=== PATIENT | male | born 1955 | race African-American/Black ===

== ENCOUNTER 2017-10-26 13:52 | Inpatient (IN) | payer OTHER ==
--- NOTE | 2017-10-26 15:22 | EDM.PDOC ---
ED HPI GENERAL MEDICAL PROBLEM - General Chief Complaint: Gastrointestinal Problem Stated Complaint: VOMITING, BLOOD IN STOOL Time Seen by Provider: 10/26/17 14:36 Source of Information: Reports: Patient History Limitations: Reports: No Limitations - History of Present Illness INITIAL COMMENTS - FREE TEXT/NARRATIVE: HISTORY AND PHYSICAL: History of present illness: 62-year-old male male presenting to emergency department with chief complaint of bright red per rectum after bowel movement this morning. Patient states that when he had a bowel movement this morning he noticed bright red blood. Does mention that he feels like he did "pass out" during this bowel movement, denies any trauma after reported lack of consciousness. He has also had subsequent diarrhea associated with this bleeding. He reports some left lower quadrant pain that also started today. He did have a similar episode in [place] approximately 4 years ago where he states that they did do some kind of procedure which seems to be a colonoscopy. States he was in the hospital for 5 days and received medications after this. He is not sure what his actual diagnosis was and does not recognize the term diverticulitis. Patient has had no significant abdominal surgery in the past. He does have some heartburn chronically takes no medications for this. Reports to drinking quite often. Reports last drink was Friday where he drank a pint of [place] whiskey. States that he does not take any blood thinners and has no other significant medical issues for which he takes medication for. Does report taking ibuprofen last few days secondary to pain from work. CBC was unremarkable, CMP did show elevated AST as well as lipase but CT did not reveal any signs of pancreatitis. CT did reveal thickening of the wall of the entire descending colon with minimal pericolonic inflammatory changes just of an anti-inflammatory process occurring or possible ischemia from the inferior mesenteric artery. I did call Dr. Caballero, surgery, and advised her of this patient. She is well aware and I will have medicine admit patient for IV antibiotics as well as IV fluid hydration. Called and talked to Dr. Carmona, hospitalist, who is accepting patient for inpatient admission. Patient was started on IV Cipro as well as Flagyl and placed nothing by mouth. I did also tell Dr. Carmona at that patient does have a history of drinking however no history of delirium tremens. He was given 2 Ativan while here in the emergency department. His last drink was stated as Friday. Review of systems: As per history of present illness and below otherwise all systems reviewed and negative. Past medical history: As per history of present illness and as reviewed below otherwise noncontributory. Surgical history: As per history of present illness and as reviewed below otherwise noncontributory. Social history: No reported history of drug or alcohol abuse. Family history: As per history of present illness and as reviewed below otherwise noncontributory. Physical exam: HEENT: Atraumatic, normocephalic, pupils reactive, negative for conjunctival pallor or scleral icterus, mucous membranes moist, throat clear, neck supple, nontender, trachea midline. Lungs: Clear to auscultation, breath sounds equal bilaterally, chest nontender. Heart: S1S2, regular, negative for clicks, rubs, or JVD. Abdomen: Soft, nondistended, mild tenderness and left lower quadrant as well as epigastric area.. Negative for masses or hepatosplenomegaly. Negative for costovertebral tenderness. Pelvis: Stable nontender. Genitourinary: Deferred. Rectal: Normal tone, positive for blood Extremities: Atraumatic, negative for cords or calf pain. Neurovascular unremarkable. Neuro: Awake, alert, oriented. Cranial nerves II through XII unremarkable. Cerebellum unremarkable. Motor and sensory unremarkable throughout. Exam nonfocal. Diagnostics: CBC, CMP, UA/UC, CT abdomen and pelvis, Hemoccult Therapeutics: 1 L LR 1, 80 mg Protonix 1, 2 mg Ativan IM 1, 1 [place] Bag IV, NPO, Cipro, Flagyl Impression: Colitis bright red blood per rectum Plan: Please see H&P patient admitted to hospital service Dr. Carmona attending for colitis.. Definitive disposition and diagnosis as appropriate pending reevaluation and review of above. Abdomen Pain Score (Numeric/FACES): 8 - Related Data Allergies Allergy/AdvReac Type Severity Reaction Status Date / Time No Known Allergies Allergy Verified 10/26/17 15:11 Home Meds: Home Meds . [No Known Home Meds] 10/26/17 [History] Past Medical History - Past Surgical History GI Surgical History: Reports: EGD Social & Family History - Family History Family Medical History: Noncontributory - Tobacco Use Smoking Status *Q: Current Every Day Smoker Years of Tobacco use: 48 Packs/Tins Daily: 0.2 - Caffeine Use Caffeine Use: Reports: Soda - Recreational Drug Use Recreational Drug Use: No ED ROS GENERAL - Review of Systems Review Of Systems: ROS reveals no pertinent complaints other than HPI. ED EXAM, GENERAL - Physical Exam Exam: See Below Course - Vital Signs Last Recorded V/S: Last Vital Signs Temp 98.4 F 10/26/17 15:07 Pulse 79 10/26/17 15:07 Resp 18 10/26/17 15:07 BP 171/104 H 10/26/17 15:07 Pulse Ox 98 10/26/17 15:07 - Orders/Labs/Meds Orders: Active Orders 24 hr Category Date Time Status NPO Now [Nothing per Oral Now Diet] [DIET] Diet 10/26/17 Dinner Active Abdomen Pelvis w Cont [CT] Stat Exams 10/26/17 15:35 Taken Ciprofloxacin in D5W [Cipro in D5W 400 MG/200 ML] 400 Med 10/26/17 19:00 Ordered mg Premix Bag 1 bag IV Q12H MVI, Adult with Vitamin K [Infuvite Adult] 10 ml Med 10/26/17 18:28 Active Thiamine [Vitamin B-1] 100 mg Folic Acid 1 mg Sodium Chloride 0.9% [Normal Saline] 1,000 ml IV ONETIME metroNIDAZOLE/Normal Saline [Flagyl 500 MG in NS 100 ML Med 10/26/17 18:55 Ordered ] 500 mg Premix Bag 1 bag IV ONETIME Medication Orders Multivitamins/Minerals 10 ml/Thiamine HCl 100 mg/ Folic Acid 1 mg/ Sodium Chloride 1,011.2 mls @ 250 mls/hr IV ONETIME ONE Stop: 10/26/17 22:30 Ciprofloxacin/Dextrose 400 mg/ (Premix) 200 mls @ 200 mls/hr IV Q12H MARCEL Metronidazole 500 mg/ Premix 100 mls @ 100 mls/hr IV ONETIME ONE Stop: 10/26/17 19:54 Labs: Laboratory Tests 10/26/17 10/26/17 10/26/17 Range/Units 16:26 16:26 16:26 WBC 10.81 (4.0-11.0) K/uL RBC 4.14 L (4.50-5.90) M/uL Hgb 13.9 (13.0-17.0) g/dL Hct 38.1 (38.0-50.0) % MCV 92.0 (80.0-98.0) fL MCH 33.6 H (27.0-32.0) pg MCHC 36.5 (31.0-37.0) g/dL RDW Std Deviation 50.2 (28.0-62.0) fl RDW Coeff of Stephane 15 (11.0-15.0) % Plt Count 75 L (150-400) K/uL MPV 10.90 (7.40-12.00) fL Neut % (Auto) 81.8 H (48.0-80.0) % Lymph % (Auto) 10.4 L (16.0-40.0) % [place] % (Auto) 7.6 (0.0-15.0) % Eos % (Auto) 0.0 (0.0-7.0) % Baso % (Auto) 0.2 (0.0-1.5) % Neut # (Auto) 8.9 H (1.4-5.7) K/uL Lymph # (Auto) 1.1 (0.6-2.4) K/uL [place] # (Auto) 0.8 (0.0-0.8) K/uL Eos # (Auto) 0.0 (0.0-0.7) K/uL Baso # (Auto) 0.0 (0.0-0.1) K/uL Nucleated RBC % 0.0 /100WBC Nucleated RBCs # 0 K/uL INR 1.02 Sodium 143 (136-148) mmol/L Potassium 3.6 (3.5-5.1) mmol/L Chloride 100 (98-107) mmol/L Carbon Dioxide 28.1 (21.0-32.0) mmol/L BUN 10 (7.0-18.0) mg/dL Creatinine 0.7 L (0.8-1.3) mg/dL Est Cr Clr Drug Dosing 99.92 mL/min Estimated GFR (MDRD) > 60.0 ml/min Glucose 99 (74-106) mg/dL Calcium 9.3 (8.5-10.1) mg/dL Total Bilirubin 1.2 H (0.2-1.0) mg/dL AST 218 H (15-37) IU/L ALT 59 (14-63) IU/L Alkaline Phosphatase 111 (46-116) U/L Total Protein 8.4 H (6.4-8.2) g/dL Albumin 4.3 (3.4-5.0) g/dL Globulin 4.1 H (2.0-3.5) g/dL Albumin/Globulin Ratio 1.1 L (1.3-2.8) Lipase (73-393) U/L 10/26/17 Range/Units 16:26 WBC (4.0-11.0) K/uL RBC (4.50-5.90) M/uL Hgb (13.0-17.0) g/dL Hct (38.0-50.0) % MCV (80.0-98.0) fL MCH (27.0-32.0) pg MCHC (31.0-37.0) g/dL RDW Std Deviation (28.0-62.0) fl RDW Coeff of Stephane (11.0-15.0) % Plt Count (150-400) K/uL MPV (7.40-12.00) fL Neut % (Auto) (48.0-80.0) % Lymph % (Auto) (16.0-40.0) % [place] % (Auto) (0.0-15.0) % Eos % (Auto) (0.0-7.0) % Baso % (Auto) (0.0-1.5) % Neut # (Auto) (1.4-5.7) K/uL Lymph # (Auto) (0.6-2.4) K/uL [place] # (Auto) (0.0-0.8) K/uL Eos # (Auto) (0.0-0.7) K/uL Baso # (Auto) (0.0-0.1) K/uL Nucleated RBC % /100WBC Nucleated RBCs # K/uL INR Sodium (136-148) mmol/L Potassium (3.5-5.1) mmol/L Chloride (98-107) mmol/L Carbon Dioxide (21.0-32.0) mmol/L BUN (7.0-18.0) mg/dL Creatinine (0.8-1.3) mg/dL Est Cr Clr Drug Dosing mL/min Estimated GFR (MDRD) ml/min Glucose (74-106) mg/dL Calcium (8.5-10.1) mg/dL Total Bilirubin (0.2-1.0) mg/dL AST (15-37) IU/L ALT (14-63) IU/L Alkaline Phosphatase (46-116) U/L Total Protein (6.4-8.2) g/dL Albumin (3.4-5.0) g/dL Globulin (2.0-3.5) g/dL Albumin/Globulin Ratio (1.3-2.8) Lipase 409 H (73-393) U/L Meds: Medications Generic Name Dose Route Start Last Admin Trade Name Freq PRN Reason Stop Dose Admin Multivitamins/Minerals 10 ml/ 1,011.2 mls @ 250 mls/hr 10/26/17 18:28 Thiamine HCl 100 mg/ Folic IV 10/26/17 22:30 Acid 1 mg/ Sodium Chloride ONETIME ONE Ciprofloxacin/Dextrose 400 mg/ 200 mls @ 200 mls/hr 10/26/17 19:00 Premix IV Q12H MARCEL Metronidazole 500 mg/ Premix 100 mls @ 100 mls/hr 10/26/17 18:55 IV 10/26/17 19:54 ONETIME ONE Discontinued Medications Generic Name Dose Route Start Last Admin Trade Name Freq PRN Reason Stop Dose Admin Lactated Ringer's 1,000 mls @ 999 mls/hr 10/26/17 15:36 10/26/17 16:30 Ringers, Lactated IV 10/26/17 16:36 999 mls/hr .BOLUS ONE Administration Multivitamins/Minerals 10 ml/ 1,011.2 mls @ 250 mls/hr 10/26/17 18:28 Thiamine HCl 100 mg/ Folic IV 10/26/17 22:30 Acid 1 mg/ Sodium Chloride ONETIME ONE Lorazepam 2 mg 10/26/17 16:00 10/26/17 16:07 Ativan IM 10/26/17 16:01 2 mg ONETIME ONE Administration Lorazepam Confirm 10/26/17 16:03 Ativan Administered 10/26/17 16:04 Dose 2 mg .ROUTE .STK-MED ONE Pantoprazole Sodium 80 mg 10/26/17 15:37 10/26/17 17:17 Protonix Iv IVPUSH 10/26/17 15:38 80 mg .BOLUS ONE Administration Departure - Departure Time of Disposition: 19:02 Disposition: Admitted As Inpatient 65 Condition: Good Clinical Impression: Colitis - Discharge Information Referrals: PCP,None [Primary Care Provider] - Forms: ED Department Discharge - My Orders Last 24 Hours: My Active Orders 10/26/17 15:35 Abdomen Pelvis w Cont [CT] Stat 10/26/17 18:28 MVI, Adult with Vitamin K [Infuvite Adult] 10 ml Thiamine [Vitamin B-1] 100 mg Folic Acid 1 mg Sodium Chloride 0.9% [Normal Saline] 1,000 ml IV ONETIME 10/26/17 18:55 metroNIDAZOLE/Normal Saline [Flagyl 500 MG in NS 100 ML] 500 mg Premix Bag 1 bag IV ONETIME 10/26/17 19:00 Ciprofloxacin in D5W [Cipro in D5W 400 MG/200 ML] 400 mg Premix Bag 1 bag IV Q12H 10/26/17 Dinner NPO Now [Nothing per Oral Now Diet] [DIET] - Assessment/Plan Last 24 Hours: My Active Orders 10/26/17 15:35 Abdomen Pelvis w Cont [CT] Stat 10/26/17 18:28 MVI, Adult with Vitamin K [Infuvite Adult] 10 ml Thiamine [Vitamin B-1] 100 mg Folic Acid 1 mg Sodium Chloride 0.9% [Normal Saline] 1,000 ml IV ONETIME 10/26/17 18:55 metroNIDAZOLE/Normal Saline [Flagyl 500 MG in NS 100 ML] 500 mg Premix Bag 1 bag IV ONETIME 10/26/17 19:00 Ciprofloxacin in D5W [Cipro in D5W 400 MG/200 ML] 400 mg Premix Bag 1 bag IV Q12H 10/26/17 Dinner NPO Now [Nothing per Oral Now Diet] [DIET]
[2017-10-26] MEDS ORDERED: Lactated Ringers 1,000 ML IV ONE (15:36)
[2017-10-26] MEDS ORDERED: Pantoprazole 40 MG Vial IVPUSH ONE (15:37)
[2017-10-26] MEDS ORDERED: LORazepam 2 MG/ML SDV IM ONE (16:00)
[2017-10-26] MEDS ORDERED: LORazepam 2 MG/ML SDV ONE (16:03)
[2017-10-26 16:51] LABS: CHLORIDE,CL 100 mmol/L (98-107); SODIUM,NA 143 mmol/L (136-148)
[2017-10-26] MEDS ORDERED: MVI, Adult with Vitamin K 10 ML, Thiamine 100 MG, Folic Acid 1 MG in Sodium Chloride 0.... IV ONE ×8 (18:28)
[2017-10-26] MEDS ORDERED: metroNIDAZOLE/Normal Saline 500 MG in Premix Bag 1 BAG IV ONE (18:55)
[2017-10-26] MEDS ORDERED: Iopamidol 755 MG/ML 500 ML Multipack Bottle IVPUSH STA (19:07)
[2017-10-26] MEDS: Ciprofloxacin in D5W 400 MG in Premix Bag 1 BAG IV SCH ×2 (20:02)
[2017-10-26] MEDS ORDERED: Ondansetron 4 MG/2 ML SDV IVPUSH PRN (22:39)
--- NOTE | 2017-10-26 22:47 | PCM.HP ---
H&P History of Present Illness - General Date of Service: 10/26/17 Admit Problem/Dx: Admission Diagnosis/Problem Admission Diagnosis/Problem Colitis - History of Present Illness Initial Comments - Free Text/Narative: 62 yo male who presents with one day history of bloody stools. He did have some abdominal pain in the ED but he denies abdominal pain now. He reports having bloody stools four years ago but did not have endoscopy. He denies any fevers. CT scan of abdomen reports thickening of the wall of the entire descending colon with minimal pericolonic inflammatory changes. Abdomen Pain Score (Numeric/FACES): 8 - Related Data Allergies/Adverse Reactions: Allergies Allergy/AdvReac Type Severity Reaction Status Date / Time No Known Allergies Allergy Verified 10/26/17 15:11 Home Medications: Home Meds . [No Known Home Meds] 10/26/17 [History] Past Medical History - Past Surgical History GI Surgical History: Reports: EGD Social & Family History - Family History Family Medical History: Noncontributory - Tobacco Use Smoking Status *Q: Current Every Day Smoker Years of Tobacco use: 48 Packs/Tins Daily: 0.2 - Caffeine Use Caffeine Use: Reports: Soda - Recreational Drug Use Recreational Drug Use: No H&P Review of Systems - Review of Systems: Review Of Systems: ROS reveals no pertinent complaints other than HPI. Exam - Exam Exam: See Below - Vital Signs Vital Signs: Last Vital Signs Temp 36.9 C 10/26/17 15:07 Pulse 78 10/26/17 20:28 Resp 16 10/26/17 20:28 BP 151/83 H 10/26/17 20:28 Pulse Ox 97 10/26/17 20:28 Weight: 65.4 kg - Exam General: Alert, Oriented HEENT: Mucosa Moist & [place] Lungs: Clear to Auscultation, Normal Respiratory Effort Cardiovascular: Regular Rate, Regular Rhythm GI/Abdominal Exam: Normal Bowel Sounds, Soft, Non-Tender, No Distention. No: Guarding, Rigid, Rebound Extremities: Normal Inspection, Non-Tender, No Pedal Edema Skin: Warm, Dry, Intact - Patient Data Lab Results Last 24 hrs: Laboratory Results - last 24 hr 10/26/17 10/26/17 10/26/17 Range/Units 16:26 16:26 16:26 WBC 10.81 (4.0-11.0) K/uL RBC 4.14 L (4.50-5.90) M/uL Hgb 13.9 (13.0-17.0) g/dL Hct 38.1 (38.0-50.0) % MCV 92.0 (80.0-98.0) fL MCH 33.6 H (27.0-32.0) pg MCHC 36.5 (31.0-37.0) g/dL RDW Std Deviation 50.2 (28.0-62.0) fl RDW Coeff of Stephane 15 (11.0-15.0) % Plt Count 75 L (150-400) K/uL MPV 10.90 (7.40-12.00) fL Neut % (Auto) 81.8 H (48.0-80.0) % Lymph % (Auto) 10.4 L (16.0-40.0) % [place] % (Auto) 7.6 (0.0-15.0) % Eos % (Auto) 0.0 (0.0-7.0) % Baso % (Auto) 0.2 (0.0-1.5) % Neut # (Auto) 8.9 H (1.4-5.7) K/uL Lymph # (Auto) 1.1 (0.6-2.4) K/uL [place] # (Auto) 0.8 (0.0-0.8) K/uL Eos # (Auto) 0.0 (0.0-0.7) K/uL Baso # (Auto) 0.0 (0.0-0.1) K/uL Nucleated RBC % 0.0 /100WBC Nucleated RBCs # 0 K/uL INR 1.02 Sodium 143 (136-148) mmol/L Potassium 3.6 (3.5-5.1) mmol/L Chloride 100 (98-107) mmol/L Carbon Dioxide 28.1 (21.0-32.0) mmol/L BUN 10 (7.0-18.0) mg/dL Creatinine 0.7 L (0.8-1.3) mg/dL Est Cr Clr Drug Dosing 99.92 mL/min Estimated GFR (MDRD) > 60.0 ml/min Glucose 99 (74-106) mg/dL Calcium 9.3 (8.5-10.1) mg/dL Total Bilirubin 1.2 H (0.2-1.0) mg/dL AST 218 H (15-37) IU/L ALT 59 (14-63) IU/L Alkaline Phosphatase 111 (46-116) U/L Total Protein 8.4 H (6.4-8.2) g/dL Albumin 4.3 (3.4-5.0) g/dL Globulin 4.1 H (2.0-3.5) g/dL Albumin/Globulin Ratio 1.1 L (1.3-2.8) Lipase (73-393) U/L Urine Color Urine Appearance Urine pH (5.0-8.0) Ur Specific [place] (1.001-1.035) Urine Protein (NEGATIVE) mg/dL Urine Glucose (UA) (NEGATIVE) mg/dL Urine Ketones (NEGATIVE) mg/dL Urine Occult Blood (NEGATIVE) Urine Nitrite (NEGATIVE) Urine Bilirubin (NEGATIVE) Urine Urobilinogen (<2.0) EU/dL Ur Leukocyte Esterase (NEGATIVE) Urine RBC (0-2/HPF) Urine WBC (0-5/HPF) Ur Epithelial Cells (NONE-FEW) Urine Bacteria (NEGATIVE) H. pylori IgG Antibody (NEG) 10/26/17 10/26/17 10/26/17 Range/Units 16:26 16:26 19:30 WBC (4.0-11.0) K/uL RBC (4.50-5.90) M/uL Hgb (13.0-17.0) g/dL Hct (38.0-50.0) % MCV (80.0-98.0) fL MCH (27.0-32.0) pg MCHC (31.0-37.0) g/dL RDW Std Deviation (28.0-62.0) fl RDW Coeff of Stephane (11.0-15.0) % Plt Count (150-400) K/uL MPV (7.40-12.00) fL Neut % (Auto) (48.0-80.0) % Lymph % (Auto) (16.0-40.0) % [place] % (Auto) (0.0-15.0) % Eos % (Auto) (0.0-7.0) % Baso % (Auto) (0.0-1.5) % Neut # (Auto) (1.4-5.7) K/uL Lymph # (Auto) (0.6-2.4) K/uL [place] # (Auto) (0.0-0.8) K/uL Eos # (Auto) (0.0-0.7) K/uL Baso # (Auto) (0.0-0.1) K/uL Nucleated RBC % /100WBC Nucleated RBCs # K/uL INR Sodium (136-148) mmol/L Potassium (3.5-5.1) mmol/L Chloride (98-107) mmol/L Carbon Dioxide (21.0-32.0) mmol/L BUN (7.0-18.0) mg/dL Creatinine (0.8-1.3) mg/dL Est Cr Clr Drug Dosing mL/min Estimated GFR (MDRD) ml/min Glucose (74-106) mg/dL Calcium (8.5-10.1) mg/dL Total Bilirubin (0.2-1.0) mg/dL AST (15-37) IU/L ALT (14-63) IU/L Alkaline Phosphatase (46-116) U/L Total Protein (6.4-8.2) g/dL Albumin (3.4-5.0) g/dL Globulin (2.0-3.5) g/dL Albumin/Globulin Ratio (1.3-2.8) Lipase 409 H (73-393) U/L Urine Color YELLOW Urine Appearance CLEAR Urine pH 6.5 (5.0-8.0) Ur Specific [place] 1.010 (1.001-1.035) Urine Protein NEGATIVE (NEGATIVE) mg/dL Urine Glucose (UA) NEGATIVE (NEGATIVE) mg/dL Urine Ketones NEGATIVE (NEGATIVE) mg/dL Urine Occult Blood MODERATE (NEGATIVE) Urine Nitrite NEGATIVE (NEGATIVE) Urine Bilirubin NEGATIVE (NEGATIVE) Urine Urobilinogen 1.0 (<2.0) EU/dL Ur Leukocyte Esterase NEGATIVE (NEGATIVE) Urine RBC 2-4 (0-2/HPF) Urine WBC 0-2 (0-5/HPF) Ur Epithelial Cells RARE (NONE-FEW) Urine Bacteria FEW (NEGATIVE) H. pylori IgG Antibody NEGATIVE (NEG) Result Diagrams: 10/27/17 05:31 10/27/17 05:31 Problem List Initiated/Reviewed/Updated: Yes Orders Last 24hrs: Active Orders 24 hr Category Date Time Status Admission Status [Patient Status] [ADT] Stat ADT 10/26/17 21:22 Active Oxygen Therapy [RC] PRN Care 10/26/17 22:39 Ordered Up ad Kelsey [RC] ASDIRECTED Care 10/26/17 22:39 Ordered VTE/DVT Education [RC] PER UNIT ROUTINE Care 10/26/17 22:39 Ordered Vital Signs [RC] Q4H Care 10/26/17 22:39 Ordered Nothing per Oral Now Diet [DIET] Diet 10/27/17 Breakfast Ordered Abdomen Pelvis w Cont [CT] Stat Exams 10/26/17 15:35 Taken CBC WITH AUTO DIFF [HEME] AM Lab 10/27/17 05:11 Ordered COMPREHENSIVE METABOLIC PN,CMP [CHEM] AM Lab 10/27/17 05:11 Ordered CULTURE STOOL + CAMPY+SHIGATOX [RM] Stat Lab 10/26/17 22:19 Received UA W/MICROSCOPIC [URIN] Stat Lab 10/26/17 19:30 Ordered Ciprofloxacin in D5W [Cipro in D5W 400 MG/200 ML] 400 Med 10/26/17 19:00 Active mg Premix Bag 1 bag IV Q12H Ondansetron [Zofran] Med 10/26/17 22:39 Ordered 4 mg IVPUSH Q4H PRN Sodium Chloride 0.9% [Normal Saline] 1,000 ml Med 10/26/17 22:45 Ordered IV ASDIRECTED metroNIDAZOLE/Normal Saline [Flagyl 500 MG in NS 100 ML Med 10/27/17 00:00 Ordered ] 500 mg Premix Bag 1 bag IV QID Sequential Compression Device [OM.PC] Per Unit Routine Oth 10/26/17 22:40 Ordered Medication Orders Ciprofloxacin/Dextrose 400 mg/ (Premix) 200 mls @ 200 mls/hr IV Q12H MARCEL Last Admin: 10/26/17 20:02 Dose: 200 mls/hr Assessment/Plan Comment:: 62 yo male admitted with colitis. We will treat with IV ciprofloxacin, flagyl and bowel rest.
[2017-10-27] MEDS: Sodium Chloride 0.9% 1,000 ML IV SCH ×3 (00:41→15:13)
[2017-10-27] MEDS: metroNIDAZOLE/Normal Saline 500 MG in Premix Bag 1 BAG IV SCH ×3 (01:15→12:27)
[2017-10-27 06:26] LABS: CHLORIDE,CL 102 mmol/L (98-107); SODIUM,NA 140 mmol/L (136-148)
[2017-10-27] MEDS: Ciprofloxacin in D5W 400 MG in Premix Bag 1 BAG IV SCH ×2 (06:26)
[2017-10-27] MEDS ORDERED: Potassium Chloride 20 MEQ Tab.ER PO ONE (08:14)
--- NOTE | 2017-10-27 14:06 | PCM.PN ---
- General Info Date of Service: 10/27/17 Subjective Update: Stool culture+ for C. Diff. Patient states that he has had a bloody bowel movement at 2am last night. He has mild LLQ discomfort. Denies any nausea, vomiting, fevers or chills. - Review of Systems General: Reports: Other (see hpi) - Patient Data Vitals - Most Recent: Last Vital Signs Temp 35.9 C 10/27/17 11:49 Pulse 71 10/27/17 11:49 Resp 20 10/27/17 11:49 BP 156/98 H 10/27/17 11:49 Pulse Ox 97 10/27/17 11:49 Weight - Most Recent: 65.4 kg I&O - Last 24 Hours: Intake & Output 10/26/17 10/27/17 10/27/17 22:59 06:59 14:59 Intake Total 635 Output Total 350 Balance 285 Lab Results Last 24 Hours: Laboratory Results - last 24 hr 10/26/17 10/26/17 10/26/17 Range/Units 16:26 16:26 16:26 WBC 10.81 (4.0-11.0) K/uL RBC 4.14 L (4.50-5.90) M/uL Hgb 13.9 (13.0-17.0) g/dL Hct 38.1 (38.0-50.0) % MCV 92.0 (80.0-98.0) fL MCH 33.6 H (27.0-32.0) pg MCHC 36.5 (31.0-37.0) g/dL RDW Std Deviation 50.2 (28.0-62.0) fl RDW Coeff of Stephane 15 (11.0-15.0) % Plt Count 75 L (150-400) K/uL MPV 10.90 (7.40-12.00) fL Neut % (Auto) 81.8 H (48.0-80.0) % Lymph % (Auto) 10.4 L (16.0-40.0) % Bond % (Auto) 7.6 (0.0-15.0) % Eos % (Auto) 0.0 (0.0-7.0) % Baso % (Auto) 0.2 (0.0-1.5) % Neut # (Auto) 8.9 H (1.4-5.7) K/uL Lymph # (Auto) 1.1 (0.6-2.4) K/uL Bond # (Auto) 0.8 (0.0-0.8) K/uL Eos # (Auto) 0.0 (0.0-0.7) K/uL Baso # (Auto) 0.0 (0.0-0.1) K/uL Nucleated RBC % 0.0 /100WBC Nucleated RBCs # 0 K/uL Smear Path Review INR 1.02 Sodium 143 (136-148) mmol/L Potassium 3.6 (3.5-5.1) mmol/L Chloride 100 (98-107) mmol/L Carbon Dioxide 28.1 (21.0-32.0) mmol/L BUN 10 (7.0-18.0) mg/dL Creatinine 0.7 L (0.8-1.3) mg/dL Est Cr Clr Drug Dosing 99.92 mL/min Estimated GFR (MDRD) > 60.0 ml/min Glucose 99 (74-106) mg/dL Calcium 9.3 (8.5-10.1) mg/dL Total Bilirubin 1.2 H (0.2-1.0) mg/dL AST 218 H (15-37) IU/L ALT 59 (14-63) IU/L Alkaline Phosphatase 111 (46-116) U/L Total Protein 8.4 H (6.4-8.2) g/dL Albumin 4.3 (3.4-5.0) g/dL Globulin 4.1 H (2.0-3.5) g/dL Albumin/Globulin Ratio 1.1 L (1.3-2.8) Triglycerides (0-200) mg/dL Cholesterol (50-200) mg/dL LDL Cholesterol, Calc (60-180) mg/dL VLDL Cholesterol (5-55) mg/dL HDL Cholesterol (40-60) mg/dL Cholesterol/HDL Ratio (3.3-6.0) Lipase (73-393) U/L Urine Color Urine Appearance Urine pH (5.0-8.0) Ur Specific [place] (1.001-1.035) Urine Protein (NEGATIVE) mg/dL Urine Glucose (UA) (NEGATIVE) mg/dL Urine Ketones (NEGATIVE) mg/dL Urine Occult Blood (NEGATIVE) Urine Nitrite (NEGATIVE) Urine Bilirubin (NEGATIVE) Urine Urobilinogen (<2.0) EU/dL Ur Leukocyte Esterase (NEGATIVE) Urine RBC (0-2/HPF) Urine WBC (0-5/HPF) Ur Epithelial Cells (NONE-FEW) Urine Bacteria (NEGATIVE) H. pylori IgG Antibody (NEG) Blood Type Antibody Screen 10/26/17 10/26/17 10/26/17 Range/Units 16:26 16:26 19:30 WBC (4.0-11.0) K/uL RBC (4.50-5.90) M/uL Hgb (13.0-17.0) g/dL Hct (38.0-50.0) % MCV (80.0-98.0) fL MCH (27.0-32.0) pg MCHC (31.0-37.0) g/dL RDW Std Deviation (28.0-62.0) fl RDW Coeff of Stephane (11.0-15.0) % Plt Count (150-400) K/uL MPV (7.40-12.00) fL Neut % (Auto) (48.0-80.0) % Lymph % (Auto) (16.0-40.0) % Bond % (Auto) (0.0-15.0) % Eos % (Auto) (0.0-7.0) % Baso % (Auto) (0.0-1.5) % Neut # (Auto) (1.4-5.7) K/uL Lymph # (Auto) (0.6-2.4) K/uL Bond # (Auto) (0.0-0.8) K/uL Eos # (Auto) (0.0-0.7) K/uL Baso # (Auto) (0.0-0.1) K/uL Nucleated RBC % /100WBC Nucleated RBCs # K/uL Smear Path Review INR Sodium (136-148) mmol/L Potassium (3.5-5.1) mmol/L Chloride (98-107) mmol/L Carbon Dioxide (21.0-32.0) mmol/L BUN (7.0-18.0) mg/dL Creatinine (0.8-1.3) mg/dL Est Cr Clr Drug Dosing mL/min Estimated GFR (MDRD) ml/min Glucose (74-106) mg/dL Calcium (8.5-10.1) mg/dL Total Bilirubin (0.2-1.0) mg/dL AST (15-37) IU/L ALT (14-63) IU/L Alkaline Phosphatase (46-116) U/L Total Protein (6.4-8.2) g/dL Albumin (3.4-5.0) g/dL Globulin (2.0-3.5) g/dL Albumin/Globulin Ratio (1.3-2.8) Triglycerides (0-200) mg/dL Cholesterol (50-200) mg/dL LDL Cholesterol, Calc (60-180) mg/dL VLDL Cholesterol (5-55) mg/dL HDL Cholesterol (40-60) mg/dL Cholesterol/HDL Ratio (3.3-6.0) Lipase 409 H (73-393) U/L Urine Color YELLOW Urine Appearance CLEAR Urine pH 6.5 (5.0-8.0) Ur Specific [place] 1.010 (1.001-1.035) Urine Protein NEGATIVE (NEGATIVE) mg/dL Urine Glucose (UA) NEGATIVE (NEGATIVE) mg/dL Urine Ketones NEGATIVE (NEGATIVE) mg/dL Urine Occult Blood MODERATE (NEGATIVE) Urine Nitrite NEGATIVE (NEGATIVE) Urine Bilirubin NEGATIVE (NEGATIVE) Urine Urobilinogen 1.0 (<2.0) EU/dL Ur Leukocyte Esterase NEGATIVE (NEGATIVE) Urine RBC 2-4 (0-2/HPF) Urine WBC 0-2 (0-5/HPF) Ur Epithelial Cells RARE (NONE-FEW) Urine Bacteria FEW (NEGATIVE) H. pylori IgG Antibody NEGATIVE (NEG) Blood Type Antibody Screen 10/26/17 10/26/17 10/27/17 Range/Units 23:03 23:03 05:31 WBC 10.45 8.81 (4.0-11.0) K/uL RBC 4.02 L 3.81 L (4.50-5.90) M/uL Hgb 13.4 12.6 L (13.0-17.0) g/dL Hct 37.2 L 35.1 L (38.0-50.0) % MCV 92.5 92.1 (80.0-98.0) fL MCH 33.3 H 33.1 H (27.0-32.0) pg MCHC 36.0 35.9 (31.0-37.0) g/dL RDW Std Deviation 50.6 49.8 (28.0-62.0) fl RDW Coeff of Stephane 15 15 (11.0-15.0) % Plt Count 56 L 57 L (150-400) K/uL MPV 12.50 H 12.10 H (7.40-12.00) fL Neut % (Auto) 76.0 72.9 (48.0-80.0) % Lymph % (Auto) 17.5 18.5 (16.0-40.0) % Bond % (Auto) 6.2 8.1 (0.0-15.0) % Eos % (Auto) 0.1 0.3 (0.0-7.0) % Baso % (Auto) 0.2 0.2 (0.0-1.5) % Neut # (Auto) 7.9 H 6.4 H (1.4-5.7) K/uL Lymph # (Auto) 1.8 1.6 (0.6-2.4) K/uL Bond # (Auto) 0.7 0.7 (0.0-0.8) K/uL Eos # (Auto) 0.0 0.0 (0.0-0.7) K/uL Baso # (Auto) 0.0 0.0 (0.0-0.1) K/uL Nucleated RBC % 0.0 0.0 /100WBC Nucleated RBCs # 0 0 K/uL Smear Path Review INR Sodium (136-148) mmol/L Potassium (3.5-5.1) mmol/L Chloride (98-107) mmol/L Carbon Dioxide (21.0-32.0) mmol/L BUN (7.0-18.0) mg/dL Creatinine (0.8-1.3) mg/dL Est Cr Clr Drug Dosing mL/min Estimated GFR (MDRD) ml/min Glucose (74-106) mg/dL Calcium (8.5-10.1) mg/dL Total Bilirubin (0.2-1.0) mg/dL AST (15-37) IU/L ALT (14-63) IU/L Alkaline Phosphatase (46-116) U/L Total Protein (6.4-8.2) g/dL Albumin (3.4-5.0) g/dL Globulin (2.0-3.5) g/dL Albumin/Globulin Ratio (1.3-2.8) Triglycerides (0-200) mg/dL Cholesterol (50-200) mg/dL LDL Cholesterol, Calc (60-180) mg/dL VLDL Cholesterol (5-55) mg/dL HDL Cholesterol (40-60) mg/dL Cholesterol/HDL Ratio (3.3-6.0) Lipase (73-393) U/L Urine Color Urine Appearance Urine pH (5.0-8.0) Ur Specific [place] (1.001-1.035) Urine Protein (NEGATIVE) mg/dL Urine Glucose (UA) (NEGATIVE) mg/dL Urine Ketones (NEGATIVE) mg/dL Urine Occult Blood (NEGATIVE) Urine Nitrite (NEGATIVE) Urine Bilirubin (NEGATIVE) Urine Urobilinogen (<2.0) EU/dL Ur Leukocyte Esterase (NEGATIVE) Urine RBC (0-2/HPF) Urine WBC (0-5/HPF) Ur Epithelial Cells (NONE-FEW) Urine Bacteria (NEGATIVE) H. pylori IgG Antibody (NEG) Blood Type A NEGATIVE Antibody Screen NEGATIVE 10/27/17 10/27/17 10/27/17 Range/Units 05:31 05:31 05:31 WBC (4.0-11.0) K/uL RBC (4.50-5.90) M/uL Hgb (13.0-17.0) g/dL Hct (38.0-50.0) % MCV (80.0-98.0) fL MCH (27.0-32.0) pg MCHC (31.0-37.0) g/dL RDW Std Deviation (28.0-62.0) fl RDW Coeff of Stephane (11.0-15.0) % Plt Count (150-400) K/uL MPV (7.40-12.00) fL Neut % (Auto) (48.0-80.0) % Lymph % (Auto) (16.0-40.0) % Bond % (Auto) (0.0-15.0) % Eos % (Auto) (0.0-7.0) % Baso % (Auto) (0.0-1.5) % Neut # (Auto) (1.4-5.7) K/uL Lymph # (Auto) (0.6-2.4) K/uL Bond # (Auto) (0.0-0.8) K/uL Eos # (Auto) (0.0-0.7) K/uL Baso # (Auto) (0.0-0.1) K/uL Nucleated RBC % /100WBC Nucleated RBCs # K/uL Smear Path Review SENT TO PATHOLOGY INR Sodium 140 (136-148) mmol/L Potassium 3.0 L (3.5-5.1) mmol/L Chloride 102 (98-107) mmol/L Carbon Dioxide 27.5 (21.0-32.0) mmol/L BUN 6 L (7.0-18.0) mg/dL Creatinine 0.7 L (0.8-1.3) mg/dL Est Cr Clr Drug Dosing 99.92 mL/min Estimated GFR (MDRD) > 60.0 ml/min Glucose 110 H (74-106) mg/dL Calcium 8.5 (8.5-10.1) mg/dL Total Bilirubin 1.9 H (0.2-1.0) mg/dL AST 215 H (15-37) IU/L ALT 52 (14-63) IU/L Alkaline Phosphatase 98 (46-116) U/L Total Protein 6.9 (6.4-8.2) g/dL Albumin 3.4 (3.4-5.0) g/dL Globulin 3.5 (2.0-3.5) g/dL Albumin/Globulin Ratio 1.0 L (1.3-2.8) Triglycerides 82 (0-200) mg/dL Cholesterol 234 H (50-200) mg/dL LDL Cholesterol, Calc 107 (60-180) mg/dL VLDL Cholesterol 16 (5-55) mg/dL HDL Cholesterol 111 H (40-60) mg/dL Cholesterol/HDL Ratio 2.1 L (3.3-6.0) Lipase (73-393) U/L Urine Color Urine Appearance Urine pH (5.0-8.0) Ur Specific [place] (1.001-1.035) Urine Protein (NEGATIVE) mg/dL Urine Glucose (UA) (NEGATIVE) mg/dL Urine Ketones (NEGATIVE) mg/dL Urine Occult Blood (NEGATIVE) Urine Nitrite (NEGATIVE) Urine Bilirubin (NEGATIVE) Urine Urobilinogen (<2.0) EU/dL Ur Leukocyte Esterase (NEGATIVE) Urine RBC (0-2/HPF) Urine WBC (0-5/HPF) Ur Epithelial Cells (NONE-FEW) Urine Bacteria (NEGATIVE) H. pylori IgG Antibody (NEG) Blood Type Antibody Screen Von Results Last 24 Hours: Microbiology 10/27/17 11:20 Clostridium difficile Toxin A & B - Final Stool / Feces Positive C. Diff Antigen 10/26/17 22:19 Campylobacter Antigen Assay - Final Stool / Feces NEGATIVE [facility] Med Orders - Current: Current Medications Sodium Chloride (Normal Saline) 1,000 mls @ 100 mls/hr IV ASDIRECTED [facility] Ondansetron HCl (Zofran) 4 mg IVPUSH Q4H PRN PRN Reason: Nausea Vancomycin HCl (Vancomycin) 125 mg PO QID [facility] Stop: 11/06/17 18:00 Discontinued Medications Lactated Ringer's (Ringers, Lactated) 1,000 mls @ 999 mls/hr IV .BOLUS ONE Stop: 10/26/17 16:36 Last Admin: 10/26/17 16:30 Dose: 999 mls/hr Multivitamins/Minerals 10 ml/Thiamine HCl 100 mg/ Folic Acid 1 mg/ Sodium Chloride 1,011.2 mls @ 250 mls/hr IV ONETIME ONE Stop: 10/26/17 22:30 Last Admin: 10/27/17 00:00 Dose: Not Given Multivitamins/Minerals 10 ml/Thiamine HCl 100 mg/ Folic Acid 1 mg/ Sodium Chloride 1,011.2 mls @ 250 mls/hr IV ONETIME ONE Stop: 10/26/17 22:30 Last Admin: 10/26/17 19:20 Dose: 250 mls/hr Ciprofloxacin/Dextrose 400 mg/ (Premix) 200 mls @ 200 mls/hr IV Q12H [facility] Last Admin: 10/27/17 06:26 Dose: 200 mls/hr Metronidazole 500 mg/ Premix 100 mls @ 100 mls/hr IV ONETIME ONE Stop: 10/26/17 19:54 Last Admin: 10/26/17 23:59 Dose: Not Given Metronidazole 500 mg/ Premix 100 mls @ 100 mls/hr IV QID [facility] Last Admin: 10/27/17 12:27 Dose: 100 mls/hr Sodium Chloride (Normal Saline) 1,000 mls @ 200 mls/hr IV ASDIRECTED [facility]ARCEL Last Admin: 10/27/17 05:31 Dose: 200 mls/hr Iopamidol (Isovue Multipack-370 (76%)) 100 ml IVPUSH ONETIME STA Stop: 10/26/17 19:08 Last Admin: 10/26/17 19:08 Dose: 100 ml Lorazepam (Ativan) 2 mg IM ONETIME ONE Stop: 10/26/17 16:01 Last Admin: 10/26/17 16:07 Dose: 2 mg Lorazepam (Ativan) Confirm Administered Dose 2 mg .ROUTE .STK-MED ONE Stop: 10/26/17 16:04 Last Admin: 10/26/17 23:59 Dose: Not Given Pantoprazole Sodium (Protonix Iv) 80 mg IVPUSH .BOLUS ONE Stop: 10/26/17 15:38 Last Admin: 10/26/17 17:17 Dose: 80 mg Potassium Chloride (Klor-Con M20) 40 meq PO ONETIME ONE Stop: 10/27/17 08:15 Last Admin: 10/27/17 08:56 Dose: 40 meq - Exam General: Alert, Oriented Neck: Supple Lungs: Clear to Auscultation, Normal Respiratory Effort Cardiovascular: Regular Rate, Regular Rhythm GI/Abdominal Exam: Normal Bowel Sounds, Soft, Non-Tender, No Organomegaly, No Distention, No Abnormal Bruit, No Mass, Pelvis Stable Back Exam: Normal Inspection, Full Range of Motion Extremities: Normal Inspection, Normal Range of Motion, Non-Tender, No Pedal Edema, Normal Capillary Refill Peripheral Pulses: 2+: Dorsalis Pedis (L), Dorsalis Pedis (R) Skin: Warm Psy/Mental Status: Alert, Normal Affect, Normal Mood - Problem List Review Problem List Initiated/Reviewed/Updated: Yes - My Orders Last 24 Hours: My Active Orders 10/27/17 09:36 Notify Provider Consults [RC] ASDIRECTED Consult to Physician [CONS] Routine 10/27/17 18:00 Vancomycin 125 mg PO QID 10/27/17 Lunch Clear Liquid Diet [DIET] - Plan Plan:: Assessment: #1. C. Difficile Colitis #2. LLQ discomfort secondary to #1 #3. Elevated lipase #4. Thrombocytopenia #5. Hyperbilirubinemia #6. Transaminitis Plan: #1. Discontinue IV Flagyl, cipro. Start PO Vancomycin 125mg four times daily #2. Obtain RUQ US, Lipid panel for etiology of elevated lipase. Patient states that he drinks occasionally, and hasnt drank in the past few days. #3. Obtain peripheral smear for thrombocytopenia #4. Clear liquid diet #5. Surgery states they would like to do EGD/Colnoscopy in 6-8 weeks. The colitis is likely infectious rather than ischemic given that the findings on CT do not involve the splenic flexure. #6. Decrease IVF to 100mL/h NS
[2017-10-27] MEDS: Vancomycin 25 MG/ML Compounding Kit PO SCH ×2 (14:50→18:43)
--- NOTE | 2017-10-27 16:11 | CT ---
EXAM DATE: 10/26/17 PATIENT'S AGE: 62 Patient: PAULINE PRASAD Facility: [place], [place] Site . Site : [id number] Study: CT Abdomen/Pelvis [id number]/[id number] 6:05:03 PM Ordering Physician: James Obrien Final Report: INDICATION: Vomiting; blood in stool. COMPARISON: None. TECHNIQUE: CT abdomen and pelvis with intravenous contrast; coronal and sagittal reformats. FINDINGS: No abnormal intra pulmonary nodular densities through the lung bases. No evidence of pleural effusion. Normal size cardiac silhouette without any evidence of pericardial effusion. No focal hepatic or splenic pathology. No pancreatic pathology. Gallbladder is unremarkable. No adrenal pathology. No kidney stones or obstructive uropathy. No retroperitoneal lymphadenopathy. No evidence of abdominal or pelvic ascites. Appendix is unremarkable. No CT evidence of diverticulitis or abscess. Thickening of the wall of the entire descending colon with minimal pericolonic inflammatory changes; rule out ischemia in the distribution of the inferior mesenteric artery. Splenic vein, superior mesenteric vein and the portal vein are unremarkable. No evidence of pneumoperitoneum. No evidence of intestinal obstruction. IMPRESSION: 1. Thickening of the wall of the entire descending colon with minimal pericolonic inflammatory changes; rule out ischemia in the distribution of the inferior mesenteric artery. 2. Normal appendix. 3. No kidney stones or obstructive uropathy. 4. No evidence of pneumatosis or pneumoperitoneum. Please note that all CT scans at this facility use dose modulation, iterative reconstruction, and/or weight-based dosing when appropriate to reduce radiation dose to as low as reasonably achievable. Dictated by Karina Cohen MD @ Oct 26 2017 6:24PM (Electronic Signature) Report Signed by Proxy. DORITA
--- NOTE | 2017-10-27 16:49 | US ---
EXAMINATION: Right upper quadrant ultrasound HISTORY: Elevated AST and bilirubin COMPARISON: CT dated 10/26/2017 TECHNIQUE: Grayscale and color Doppler images obtained of the right upper quadrant. FINDINGS: The visualized pancreas is normal. The gallbladder wall thickness is normal. No pericholecy stic fluid or shadowing gallstones. The common bile duct measures 4 mm. The right kidney measures at least 11.7 cm [id number] without evidence of hydronephrosis. The liver is mildly increased in gener alized echotexture. No focal hepatic mass. Negative sonographic Alonzo sign. IMPRESSION: 1. Mild to moderate fatty infiltration of the liver, otherwise unremarkable right upper quadrant ultr asound.
--- NOTE | 2017-10-27 21:18 | PCM.CONS ---
H&P History of Present Illness - General Date of Service: 10/27/17 Admit Problem/Dx: Admission Diagnosis/Problem Admission Diagnosis/Problem Colitis Source of Information: Patient History Limitations: Reports: Language Barrier - History of Present Illness Initial Comments - Free Text/Narative: Patient is a 62 year old male who presented with nausea vomiting and bloody diarrhea. He did have some abdominal pain in the ED but he denies abdominal pain now. He reports having bloody stools four years ago but did not have endoscopy. He denies any fevers. CT scan of abdomen reports thickening of the wall of the entire descending colon with minimal pericolonic inflammatory changes. C. Diff came back positive. He has never had a scope before and doesnt see a PCP. Abdomen Pain Score (Numeric/FACES): 8 - Related Data Allergies/Adverse Reactions: Allergies Allergy/AdvReac Type Severity Reaction Status Date / Time No Known Allergies Allergy Verified 10/26/17 15:11 Home Medications: Home Meds . [No Known Home Meds] 10/26/17 [History] Past Medical History - Past Health History Medical/Surgical History: Denies Medical/Surgical History - Past Surgical History GI Surgical History: Reports: EGD Social & Family History - Family History Family Medical History: Noncontributory - Tobacco Use Smoking Status *Q: Current Every Day Smoker Years of Tobacco use: 48 Packs/Tins Daily: 0.2 - Caffeine Use Caffeine Use: Reports: Soda - Recreational Drug Use Recreational Drug Use: No H&P Review of Systems - Review of Systems: Review Of Systems: ROS reveals no pertinent complaints other than HPI. Exam - Exam Exam: See Below - Vital Signs Vital Signs: Last Vital Signs Temp 35.8 C 10/27/17 15:39 Pulse 70 10/27/17 15:39 Resp 22 H 10/27/17 15:39 BP 149/92 H 10/27/17 15:39 Pulse Ox 97 10/27/17 15:39 Weight: 65.4 kg - Exam Quality Assessment: Supplemental Oxygen General: Alert, Oriented HEENT: Conjunctiva Clear, Posterior Pharynx Clear, Pupils Equal Neck: Supple, Trachea Midline Lungs: Clear to Auscultation, Normal Respiratory Effort Cardiovascular: Regular Rate, Regular Rhythm GI/Abdominal Exam: Soft, Non-Tender, No Distention, No Mass - Patient Data Lab Results Last 24 hrs: Laboratory Results - last 24 hr 10/26/17 10/26/17 10/27/17 Range/Units 23:03 23:03 05:31 WBC 10.45 8.81 (4.0-11.0) K/uL RBC 4.02 L 3.81 L (4.50-5.90) M/uL Hgb 13.4 12.6 L (13.0-17.0) g/dL Hct 37.2 L 35.1 L (38.0-50.0) % MCV 92.5 92.1 (80.0-98.0) fL MCH 33.3 H 33.1 H (27.0-32.0) pg MCHC 36.0 35.9 (31.0-37.0) g/dL RDW Std Deviation 50.6 49.8 (28.0-62.0) fl RDW Coeff of Stephane 15 15 (11.0-15.0) % Plt Count 56 L 57 L (150-400) K/uL MPV 12.50 H 12.10 H (7.40-12.00) fL Neut % (Auto) 76.0 72.9 (48.0-80.0) % Lymph % (Auto) 17.5 18.5 (16.0-40.0) % Gila % (Auto) 6.2 8.1 (0.0-15.0) % Eos % (Auto) 0.1 0.3 (0.0-7.0) % Baso % (Auto) 0.2 0.2 (0.0-1.5) % Neut # (Auto) 7.9 H 6.4 H (1.4-5.7) K/uL Lymph # (Auto) 1.8 1.6 (0.6-2.4) K/uL Gila # (Auto) 0.7 0.7 (0.0-0.8) K/uL Eos # (Auto) 0.0 0.0 (0.0-0.7) K/uL Baso # (Auto) 0.0 0.0 (0.0-0.1) K/uL Nucleated RBC % 0.0 0.0 /100WBC Nucleated RBCs # 0 0 K/uL Smear Path Review Sodium (136-148) mmol/L Potassium (3.5-5.1) mmol/L Chloride (98-107) mmol/L Carbon Dioxide (21.0-32.0) mmol/L BUN (7.0-18.0) mg/dL Creatinine (0.8-1.3) mg/dL Est Cr Clr Drug Dosing mL/min Estimated GFR (MDRD) ml/min Glucose (74-106) mg/dL Calcium (8.5-10.1) mg/dL Total Bilirubin (0.2-1.0) mg/dL AST (15-37) IU/L ALT (14-63) IU/L Alkaline Phosphatase (46-116) U/L Total Protein (6.4-8.2) g/dL Albumin (3.4-5.0) g/dL Globulin (2.0-3.5) g/dL Albumin/Globulin Ratio (1.3-2.8) Triglycerides (0-200) mg/dL Cholesterol (50-200) mg/dL LDL Cholesterol, Calc (60-180) mg/dL VLDL Cholesterol (5-55) mg/dL HDL Cholesterol (40-60) mg/dL Cholesterol/HDL Ratio (3.3-6.0) Blood Type A NEGATIVE Antibody Screen NEGATIVE 10/27/17 10/27/17 10/27/17 Range/Units 05:31 05:31 05:31 WBC (4.0-11.0) K/uL RBC (4.50-5.90) M/uL Hgb (13.0-17.0) g/dL Hct (38.0-50.0) % MCV (80.0-98.0) fL MCH (27.0-32.0) pg MCHC (31.0-37.0) g/dL RDW Std Deviation (28.0-62.0) fl RDW Coeff of Stephane (11.0-15.0) % Plt Count (150-400) K/uL MPV (7.40-12.00) fL Neut % (Auto) (48.0-80.0) % Lymph % (Auto) (16.0-40.0) % Gila % (Auto) (0.0-15.0) % Eos % (Auto) (0.0-7.0) % Baso % (Auto) (0.0-1.5) % Neut # (Auto) (1.4-5.7) K/uL Lymph # (Auto) (0.6-2.4) K/uL Gila # (Auto) (0.0-0.8) K/uL Eos # (Auto) (0.0-0.7) K/uL Baso # (Auto) (0.0-0.1) K/uL Nucleated RBC % /100WBC Nucleated RBCs # K/uL Smear Path Review SENT TO PATHOLOGY Sodium 140 (136-148) mmol/L Potassium 3.0 L (3.5-5.1) mmol/L Chloride 102 (98-107) mmol/L Carbon Dioxide 27.5 (21.0-32.0) mmol/L BUN 6 L (7.0-18.0) mg/dL Creatinine 0.7 L (0.8-1.3) mg/dL Est Cr Clr Drug Dosing 99.92 mL/min Estimated GFR (MDRD) > 60.0 ml/min Glucose 110 H (74-106) mg/dL Calcium 8.5 (8.5-10.1) mg/dL Total Bilirubin 1.9 H (0.2-1.0) mg/dL AST 215 H (15-37) IU/L ALT 52 (14-63) IU/L Alkaline Phosphatase 98 (46-116) U/L Total Protein 6.9 (6.4-8.2) g/dL Albumin 3.4 (3.4-5.0) g/dL Globulin 3.5 (2.0-3.5) g/dL Albumin/Globulin Ratio 1.0 L (1.3-2.8) Triglycerides 82 (0-200) mg/dL Cholesterol 234 H (50-200) mg/dL LDL Cholesterol, Calc 107 (60-180) mg/dL VLDL Cholesterol 16 (5-55) mg/dL HDL Cholesterol 111 H (40-60) mg/dL Cholesterol/HDL Ratio 2.1 L (3.3-6.0) Blood Type Antibody Screen Result Diagrams: 10/27/17 05:31 10/27/17 05:31 Von Results Last 24 hrs: Microbiology 10/27/17 11:20 Stool Occult Blood (VON) - Final Stool / Feces POSITIVE OCCULT BLOOD 10/26/17 22:19 Campylobacter Antigen Assay - Final Stool / Feces NEGATIVE CAMPYLOBACTER AG - Final NEGATIVE FOR SHIGA TOXIN 1 - Final NEGATIVE FOR SHIGA TOXIN 2 10/27/17 11:20 Clostridium difficile Toxin A & B - Final Stool / Feces Positive C. Diff Antigen Consult PN Assessment/Plan Problem List Initiated/Reviewed/Updated: Yes My Orders Last 24 Hours: My Active Orders 10/27/17 11:20 OCCULT BLOOD DIAGNOSTIC [OP] Routine 10/27/17 11:23 Fecal Occult Blood Collection [RC] ASDIRECTED Plan: Patient has C. Diff colitis. This is most likely the cause of his bloody diarrhea. He is due for a colonoscopy and I would perform this 6-8 weeks after this hospitalization. Bilirubin and lipase slightly elevated. RUQ US is normal. CT showed no evidence of pancreatic inflammation or intra or extra hepatic dilation. This may be due to a stress reaction. No need for surgical intervention at this time. If bilirubin increasing can order an MRCP to rule out any intra-biliary pathology. Will continue to follow. Call with questions or concerns.
[2017-10-28] MEDS: Vancomycin 25 MG/ML Compounding Kit PO SCH ×4 (00:04→17:19)
[2017-10-28] MEDS: Sodium Chloride 0.9% 1,000 ML IV SCH (01:10)
[2017-10-28 07:05] LABS: CHLORIDE,CL 99 mmol/L (98-107); SODIUM,NA 139 mmol/L (136-148)
[2017-10-28] MEDS ORDERED: Potassium Chloride 20 MEQ Tab.ER PO ONE ×2 (08:24→16:21)
[2017-10-28] MEDS ORDERED: Magnesium Sulfate/Water 4 GM in Premix Bag 1 BAG IV ONE (09:09)
[2017-10-28] MEDS ORDERED: Pantoprazole 40 MG Vial IVPUSH ONE (09:10)
[2017-10-28] MEDS ORDERED: Potassium Chloride 40 MEQ in Sodium Chloride 0.9% 480 ML IV ONE (09:13)
[2017-10-28] MEDS ORDERED: LORazepam 2 MG/ML SDV IVPUSH PRN (09:52)
[2017-10-28] MEDS ORDERED: Thiamine 200 MG/2 ML MDV IV SCH (10:00)
[2017-10-28] MEDS ORDERED: Folic Acid 50 MG/10 ML MDV SUBCUT SCH (10:00)
--- NOTE | 2017-10-28 16:29 | PCM.DCSUM1 ---
Discharge Summary - Hospital Course Free Text/Narrative:: Admission date: 10/26/2017 Discharge date: 10/28/2017 Admission diagnosis: #1. Colitis #2. LLQ abdominal pain #3. Elevated lipase #4. Thrombocytopenia #4. Hyperbilirubinemia #5. Transaminitis Discharge diagnosis: #1. C. Diff colitis #2. Chronic alcoholism #3. Elevated lipase secondary to alcohol use #4. Thrombocytopenia secondary to chronic etoh use #5. Alcoholic hepatitis - improved #6. Hyperbilirubinemia - improved Hospital course: 62M that presented to the ER with a CC of LLQ discomfort found on CT scan to have a colitis involving below the splenic flexure. He was admitted, started on IV cipro and flagyl and had stool studies ordered. As per stool studies, he tested positive for c. Diff so was then switched to oral vancomycin, other IV meds were discontinued. Other labs also of significance included transaminitis, hyperbilirubinemia and elevated lipase. I ordered a RUQ US for this which was negative. The colitis on CT being below the splenic flexure and not involving it, +c. Diff makes the etiology likely infectious rather than ischemic. When asked about alcohol use, he says he only drinks occasionally but has a few shots of whisky. He is to take vancomycin for a full 10 days, and be seen by surgery in 6-8 weeks for an outpatient colonoscopy. Patient was also found to be hypokalemic likely secondary to ongoing diarrhea, he was given 20meq K daily PO x5 days. He should get a BMP within 1 week with his PCP - Discharge Data Discharge Date: 10/28/17 Discharge Disposition: Home, Self-Care 01 Condition: Stable - Patient Summary/Data Consults: Consultations 10/27/17 09:36 Consult to Physician [CONS] Routine - Patient Instructions Diet: Usual Diet as Tolerated, No Alcoholic Beverages Activity: As Tolerated Driving: May Drive Today Showering/Bathing: May Shower Notify Provider of: Fever, Increased Pain, Swelling and Redness, Drainage, Nausea and/or Vomiting - Discharge Plan Prescriptions/Med Rec: Potassium Chloride [Klor-Con M20] 20 meq PO DAILY 5 Days #5 tab.er Vancomycin [First-Vancomycin 25 Compounding Kit] 125 mg PO QID 9 Days #1 bottle Home Medications: Home Meds Potassium Chloride [Klor-Con M20] 20 meq PO DAILY 5 Days #5 tab.er 10/28/17 [Rx] Vancomycin [First-Vancomycin 25 Compounding Kit] 125 mg PO QID 9 Days #1 bottle 10/28/17 [Rx] Patient Handouts: Clostridium Difficile Infection, [id number] Referrals: Bella Bennett MD [Physician] - 11/10/17 2:30 pm Vish Nicole MD [Resident] - PCP,None [Primary Care Provider] - - Patient Data Vitals - Most Recent: Last Vital Signs Temp 35.6 C 10/28/17 15:56 Pulse 58 L 10/28/17 15:56 Resp 22 H 10/28/17 15:56 BP 179/97 H 10/28/17 15:56 Pulse Ox 99 10/28/17 15:56 Weight - Most Recent: 65.4 kg I&O - Last 24 hours: Intake & Output 10/28/17 10/28/17 10/28/17 06:59 14:59 22:59 Intake Total 1240 Output Total 200 Balance 1040 Lab Results - Last 24 hrs: Laboratory Results - last 24 hr 10/28/17 10/28/17 10/28/17 Range/Units 06:31 06:31 06:35 WBC 9.14 (4.0-11.0) K/uL RBC 3.94 L (4.50-5.90) M/uL Hgb 13.1 (13.0-17.0) g/dL Hct 36.6 L (38.0-50.0) % MCV 92.9 (80.0-98.0) fL MCH 33.2 H (27.0-32.0) pg MCHC 35.8 (31.0-37.0) g/dL RDW Std Deviation 48.3 (28.0-62.0) fl RDW Coeff of Stephane 14 (11.0-15.0) % Plt Count 58 L (150-400) K/uL Neut % (Auto) 70.1 (48.0-80.0) % Lymph % (Auto) 21.1 (16.0-40.0) % [place] % (Auto) 7.7 (0.0-15.0) % Eos % (Auto) 1.0 (0.0-7.0) % Baso % (Auto) 0.1 (0.0-1.5) % Neut # (Auto) 6.4 H (1.4-5.7) K/uL Lymph # (Auto) 1.9 (0.6-2.4) K/uL [place] # (Auto) 0.7 (0.0-0.8) K/uL Eos # (Auto) 0.1 (0.0-0.7) K/uL Baso # (Auto) 0.0 (0.0-0.1) K/uL Nucleated RBC % 0.0 /100WBC Nucleated RBCs # 0 K/uL Sodium 139 (136-148) mmol/L Potassium 2.5 L (3.5-5.1) mmol/L Chloride 99 (98-107) mmol/L Carbon Dioxide 27.9 (21.0-32.0) mmol/L BUN 5 L (7.0-18.0) mg/dL Creatinine 0.7 L (0.8-1.3) mg/dL Est Cr Clr Drug Dosing 99.92 mL/min Estimated GFR (MDRD) > 60.0 ml/min Glucose 90 (74-106) mg/dL Calcium 8.4 L (8.5-10.1) mg/dL Magnesium 0.9 L (1.8-2.4) mg/dL Total Bilirubin 1.6 H (0.2-1.0) mg/dL AST 83 H (15-37) IU/L ALT 39 (14-63) IU/L Alkaline Phosphatase 94 (46-116) U/L Total Protein 7.4 (6.4-8.2) g/dL Albumin 3.7 (3.4-5.0) g/dL Globulin 3.7 H (2.0-3.5) g/dL Albumin/Globulin Ratio 1.0 L (1.3-2.8) LEO Results - Last 24 hrs: Microbiology 10/26/17 22:19 Stool Culture - Final Stool / Feces NO SALMONELLA, SHIGELLA,OR E.COLI O157 ISOLATED Campylobacter Antigen Assay - Final NEGATIVE CAMPYLOBACTER AG - Final NEGATIVE FOR SHIGA TOXIN 1 - Final NEGATIVE FOR SHIGA TOXIN 2 10/27/17 11:20 Stool Occult Blood (LEO) - Final Stool / Feces POSITIVE OCCULT BLOOD 10/27/17 11:20 Clostridium difficile Toxin A & B - Final Stool / Feces Positive C. Diff Antigen Med Orders - Current: Current Medications Folic Acid (Folic Acid) 1 mg SUBCUT DAILY [facility] Last Admin: 10/28/17 12:29 Dose: 1 mg Lorazepam (Ativan) 0 mg IVPUSH Q4H PRN; Protocol PRN Reason: CIWAA Ondansetron HCl (Zofran) 4 mg IVPUSH Q4H PRN PRN Reason: Nausea Potassium Chloride (Klor-Con M20) 40 meq PO ONETIME ONE Stop: 10/28/17 16:22 Thiamine HCl (Vitamin B-1) 100 mg IV DAILY [facility] Last Admin: 10/28/17 12:31 Dose: 100 mg Vancomycin HCl (First-Vancomycin 25 Compounding Kit) 125 mg PO QID [facility] Stop: 11/06/17 18:00 Last Admin: 10/28/17 12:32 Dose: 125 mg Discontinued Medications Lactated Ringer's (Ringers, Lactated) 1,000 mls @ 999 mls/hr IV .BOLUS ONE Stop: 10/26/17 16:36 Last Admin: 10/26/17 16:30 Dose: 999 mls/hr Multivitamins/Minerals 10 ml/Thiamine HCl 100 mg/ Folic Acid 1 mg/ Sodium Chloride 1,011.2 mls @ 250 mls/hr IV ONETIME ONE Stop: 10/26/17 22:30 Last Admin: 10/27/17 00:00 Dose: Not Given Multivitamins/Minerals 10 ml/Thiamine HCl 100 mg/ Folic Acid 1 mg/ Sodium Chloride 1,011.2 mls @ 250 mls/hr IV ONETIME ONE Stop: 10/26/17 22:30 Last Admin: 10/26/17 19:20 Dose: 250 mls/hr Ciprofloxacin/Dextrose 400 mg/ (Premix) 200 mls @ 200 mls/hr IV Q12H [facility] Last Admin: 10/27/17 06:26 Dose: 200 mls/hr Metronidazole 500 mg/ Premix 100 mls @ 100 mls/hr IV ONETIME ONE Stop: 10/26/17 19:54 Last Admin: 10/26/17 23:59 Dose: Not Given Metronidazole 500 mg/ Premix 100 mls @ 100 mls/hr IV QID [facility] Last Admin: 10/27/17 12:27 Dose: 100 mls/hr Sodium Chloride (Normal Saline) 1,000 mls @ 200 mls/hr IV ASDIRECTED [facility] Last Admin: 10/27/17 05:31 Dose: 200 mls/hr Sodium Chloride (Normal Saline) 1,000 mls @ 100 mls/hr IV ASDIRECTED [facility] Last Admin: 10/28/17 01:10 Dose: 100 mls/hr Magnesium Sulfate 4 gm/ Premix 100 mls @ 25 mls/hr IV ONETIME ONE Stop: 10/28/17 13:08 Last Admin: 10/28/17 09:55 Dose: 25 mls/hr Potassium Chloride 40 meq/ (Sodium Chloride) 500 mls @ 125 mls/hr IV ONETIME ONE Stop: 10/28/17 13:12 Last Admin: 10/28/17 12:29 Dose: 125 mls/hr Iopamidol (Isovue Multipack-370 (76%)) 100 ml IVPUSH ONETIME STA Stop: 10/26/17 19:08 Last Admin: 10/26/17 19:08 Dose: 100 ml Lorazepam (Ativan) 2 mg IM ONETIME ONE Stop: 10/26/17 16:01 Last Admin: 10/26/17 16:07 Dose: 2 mg Lorazepam (Ativan) Confirm Administered Dose 2 mg .ROUTE .STK-MED ONE Stop: 10/26/17 16:04 Last Admin: 10/26/17 23:59 Dose: Not Given Pantoprazole Sodium (Protonix Iv) 80 mg IVPUSH .BOLUS ONE Stop: 10/26/17 15:38 Last Admin: 10/26/17 17:17 Dose: 80 mg Pantoprazole Sodium (Protonix Iv) 40 mg IVPUSH NOW ONE Stop: 10/28/17 09:11 Last Admin: 10/28/17 09:55 Dose: 40 mg Potassium Chloride (Klor-Con M20) 40 meq PO ONETIME ONE Stop: 10/27/17 08:15 Last Admin: 10/27/17 08:56 Dose: 40 meq Potassium Chloride (Klor-Con M20) 40 meq PO ONETIME ONE Stop: 10/28/17 08:25 Last Admin: 10/28/17 09:48 Dose: 40 meq
== END 2017-10-28 18:45 | disposition home or self-care (01) | DRG 373 ==
LOC: MW.ED 13:52 → MW.MS 20:55
PROVIDERS: ADMIT Internal Medicine; ATTEND Internal Medicine
DX: A04.72 Enterocolitis due to Clostridium difficile, not specified as recurrent (principal); F10.20 Alcohol dependence, uncomplicated; R79.89 Other specified abnormal findings of blood chemistry; D69.59 Other secondary thrombocytopenia; K70.10 Alcoholic hepatitis without ascites; E80.6 Other disorders of bilirubin metabolism; F17.200 Nicotine dependence, unspecified, uncomplicated
CPT/HCPCS: 36415; 74177; 74177-26; 76705; 76705-26; 80053; 80061; 81001; 82272; 83690; 83735; 84132; 85025; 85610; 86677; 86850; 86900; 86901; 87046; 87324; 87899; 88104; 96361; 96365; 96366; 96368; 96372; 96375; 99283; 99285-25; A9270-GY; C9113; J0744; J2060; J3411; J3475; J3480; J7040; J7120; Q9967

== ENCOUNTER 2018-11-30 18:58 | Inpatient (IN) | payer MEDICAID ==
[2018-11-30] MEDS ORDERED: Sodium Chloride 0.9% 1,000 ML IV ONE (19:12)
[2018-11-30] MEDS ORDERED: Ondansetron 4 MG/2 ML SDV IVPUSH ONE (19:13)
--- NOTE | 2018-11-30 19:13 | EDM.PDOC ---
ED HPI GENERAL MEDICAL PROBLEM - General Chief Complaint: Abdominal Pain Stated Complaint: PT HAS STOMACH PAIN Time Seen by Provider: 11/30/18 19:12 Source of Information: Reports: Patient - History of Present Illness INITIAL COMMENTS - FREE TEXT/NARRATIVE: HISTORY AND PHYSICAL: History of present illness: [Patient presents with abdominal pain and vomiting which began 24 hours prior he does admit to drinking since he has not drank since last night but does drink heavily No fever chills sweats no chest pain shortness breath headache dizziness palpitation about a urine symptoms Abdominal pain rated 5 out of 10 radiating to back ] Review of systems: As per history of present illness and below otherwise all systems reviewed and negative. Past medical history: As per history of present illness and as reviewed below otherwise noncontributory. Surgical history: As per history of present illness and as reviewed below otherwise noncontributory. Social history: No reported history of drug or alcohol abuse. Family history: As per history of present illness and as reviewed below otherwise noncontributory. Physical exam: HEENT: Atraumatic, normocephalic, pupils reactive, negative for conjunctival pallor or scleral icterus, mucous membranes moist, throat clear, neck supple, nontender, trachea midline. Lungs: Clear to auscultation, breath sounds equal bilaterally, chest nontender. Heart: S1S2, regular, negative for clicks, rubs, or JVD. Abdomen: Soft, nondistended, Tender on deep palpationNegative for masses or hepatosplenomegaly. Negative for costovertebral tenderness. Pelvis: Stable nontender. Genitourinary: Deferred. Rectal: Deferred. Extremities: Atraumatic, negative for cords or calf pain. Neurovascular unremarkable. Neuro: Awake, alert, oriented. Cranial nerves II through XII unremarkable. Cerebellum unremarkable. Motor and sensory unremarkable throughout. Exam nonfocal. Diagnostics: [CBC CMP UA troponin lipase EKG T abdomen pelvis ] Therapeutics: [Saline Zofran Morphine 2 mg IV Proton X ] Impression: pancreatitis nausea vomiting ] Definitive disposition and diagnosis as appropriate pending reevaluation and review of above. Abdomen Pain Score (Numeric/FACES): 10 - Related Data Allergies Allergy/AdvReac Type Severity Reaction Status Date / Time No Known Allergies Allergy Verified 11/30/18 19:06 Home Meds: Home Meds . [No Known Home Meds] 05/03/18 [History] Past Medical History - Past Health History Medical/Surgical History: Denies Medical/Surgical History Gastrointestinal History: Reports: GI Bleed Immunologic History: Reports: None Oncologic (Cancer) History: Reports: None - Infectious Disease History Infectious Disease History: Reports: None - Past Surgical History GI Surgical History: Reports: EGD Social & Family History - Family History Family Medical History: Noncontributory - Tobacco Use Smoking Status *Q: Current Every Day Smoker Years of Tobacco use: 40 Packs/Tins Daily: 0.5 - Caffeine Use Caffeine Use: Reports: None - Recreational Drug Use Recreational Drug Use: No ED ROS GENERAL - Review of Systems Review Of Systems: See Below ED EXAM, GENERAL - Physical Exam Exam: See Below Course - Vital Signs Last Recorded V/S: Last Vital Signs Temp 98.1 F 11/30/18 20:26 Pulse 79 11/30/18 20:26 Resp 18 11/30/18 20:26 BP 175/89 H 11/30/18 20:26 Pulse Ox 97 11/30/18 20:26 - Orders/Labs/Meds Orders: Active Orders 24 hr Category Date Time Status EKG Documentation Completion [RC] STAT Care 11/30/18 19:12 Active Sodium Chloride 0.9% [Normal Saline] 1,000 ml Med 11/30/18 21:45 Active IV STAT Medication Orders Sodium Chloride (Normal Saline) 1,000 mls @ 150 mls/hr IV STAT MARCEL Last Admin: 11/30/18 21:53 Dose: 150 mls/hr Labs: Laboratory Tests 11/30/18 11/30/18 11/30/18 Range/Units 19:32 19:32 19:32 WBC 9.59 (4.0-11.0) K/uL RBC 4.04 L (4.50-5.90) M/uL Hgb 13.8 (13.0-17.0) g/dL Hct 37.8 L (38.0-50.0) % MCV 93.6 (80.0-98.0) fL MCH 34.2 H (27.0-32.0) pg MCHC 36.5 (31.0-37.0) g/dL RDW Std Deviation 48.7 (28.0-62.0) fl RDW Coeff of Stephane 14 (11.0-15.0) % Plt Count 80 L (150-400) K/uL MPV 11.30 (7.40-12.00) fL Neut % (Auto) 80.1 H (48.0-80.0) % Lymph % (Auto) 6.2 L (16.0-40.0) % [place] % (Auto) 13.6 (0.0-15.0) % Eos % (Auto) 0.0 (0.0-7.0) % Baso % (Auto) 0.1 (0.0-1.5) % Neut # (Auto) 7.7 H (1.4-5.7) K/uL Lymph # (Auto) 0.6 (0.6-2.4) K/uL [place] # (Auto) 1.3 H (0.0-0.8) K/uL Eos # (Auto) 0.0 (0.0-0.7) K/uL Baso # (Auto) 0.0 (0.0-0.1) K/uL Nucleated RBC % 0.2 /100WBC Nucleated RBCs # 0 K/uL Sodium 139 (136-148) mmol/L Potassium 3.2 L (3.5-5.1) mmol/L Chloride 95 L (98-107) mmol/L Carbon Dioxide 21.1 (21.0-32.0) mmol/L BUN 12 (7.0-18.0) mg/dL Creatinine 0.8 (0.8-1.3) mg/dL Est Cr Clr Drug Dosing 93.28 mL/min Estimated GFR (MDRD) > 60.0 ml/min Glucose 165 H (74-106) mg/dL Calcium 10.0 (8.5-10.1) mg/dL Total Bilirubin 1.6 H (0.2-1.0) mg/dL AST 207 H (15-37) IU/L ALT 60 (14-63) IU/L Alkaline Phosphatase 133 H (46-116) U/L Troponin I < 0.050 (0.000-0.056) ng/mL Total Protein 8.8 H (6.4-8.2) g/dL Albumin 4.1 (3.4-5.0) g/dL Globulin 4.7 H (2.6-4.0) g/dL Albumin/Globulin Ratio 0.9 (0.9-1.6) Lipase 3207 H (73-393) U/L Urine Color Urine Appearance Urine pH (5.0-8.0) Ur Specific [place] (1.001-1.035) Urine Protein (NEGATIVE) mg/dL Urine Glucose (UA) (NEGATIVE) mg/dL Urine Ketones (NEGATIVE) mg/dL Urine Occult Blood (NEGATIVE) Urine Nitrite (NEGATIVE) Urine Bilirubin (NEGATIVE) Urine Ictotest Urine Urobilinogen (<2.0) EU/dL Ur Leukocyte Esterase (NEGATIVE) Urine RBC (0-2/HPF) Urine WBC (0-5/HPF) Ur Epithelial Cells (NONE-FEW) Urine Bacteria (NEGATIVE) Hyaline Casts (0-2/LPF) Urine Mucus (NONE-MOD) Ethyl Alcohol 9 mg/dL 11/30/18 Range/Units 21:50 WBC (4.0-11.0) K/uL RBC (4.50-5.90) M/uL Hgb (13.0-17.0) g/dL Hct (38.0-50.0) % MCV (80.0-98.0) fL MCH (27.0-32.0) pg MCHC (31.0-37.0) g/dL RDW Std Deviation (28.0-62.0) fl RDW Coeff of Stephane (11.0-15.0) % Plt Count (150-400) K/uL MPV (7.40-12.00) fL Neut % (Auto) (48.0-80.0) % Lymph % (Auto) (16.0-40.0) % [place] % (Auto) (0.0-15.0) % Eos % (Auto) (0.0-7.0) % Baso % (Auto) (0.0-1.5) % Neut # (Auto) (1.4-5.7) K/uL Lymph # (Auto) (0.6-2.4) K/uL [place] # (Auto) (0.0-0.8) K/uL Eos # (Auto) (0.0-0.7) K/uL Baso # (Auto) (0.0-0.1) K/uL Nucleated RBC % /100WBC Nucleated RBCs # K/uL Sodium (136-148) mmol/L Potassium (3.5-5.1) mmol/L Chloride (98-107) mmol/L Carbon Dioxide (21.0-32.0) mmol/L BUN (7.0-18.0) mg/dL Creatinine (0.8-1.3) mg/dL Est Cr Clr Drug Dosing mL/min Estimated GFR (MDRD) ml/min Glucose (74-106) mg/dL Calcium (8.5-10.1) mg/dL Total Bilirubin (0.2-1.0) mg/dL AST (15-37) IU/L ALT (14-63) IU/L Alkaline Phosphatase (46-116) U/L Troponin I (0.000-0.056) ng/mL Total Protein (6.4-8.2) g/dL Albumin (3.4-5.0) g/dL Globulin (2.6-4.0) g/dL Albumin/Globulin Ratio (0.9-1.6) Lipase (73-393) U/L Urine Color YELLOW Urine Appearance CLEAR Urine pH 6.0 (5.0-8.0) Ur Specific [place] >= 1.030 (1.001-1.035) Urine Protein 30 H (NEGATIVE) mg/dL Urine Glucose (UA) NEGATIVE (NEGATIVE) mg/dL Urine Ketones >=80 (NEGATIVE) mg/dL Urine Occult Blood MODERATE H (NEGATIVE) Urine Nitrite NEGATIVE (NEGATIVE) Urine Bilirubin SMALL H (NEGATIVE) Urine Ictotest NEGATIVE Urine Urobilinogen 0.2 (<2.0) EU/dL Ur Leukocyte Esterase NEGATIVE (NEGATIVE) Urine RBC 0-2 (0-2/HPF) Urine WBC 0-2 (0-5/HPF) Ur Epithelial Cells RARE (NONE-FEW) Urine Bacteria FEW (NEGATIVE) Hyaline Casts 0-1 (0-2/LPF) Urine Mucus LIGHT (NONE-MOD) Ethyl Alcohol mg/dL Meds: Medications Generic Name Dose Route Start Last Admin Trade Name Freq PRN Reason Stop Dose Admin Sodium Chloride 1,000 mls @ 150 mls/hr 11/30/18 21:45 11/30/18 21:53 Normal Saline IV 150 mls/hr STAT MARCEL Administration Discontinued Medications Generic Name Dose Route Start Last Admin Trade Name Freq PRN Reason Stop Dose Admin Sodium Chloride 1,000 mls @ 999 mls/hr 11/30/18 19:12 11/30/18 19:47 Normal Saline IV 11/30/18 20:12 999 mls/hr STAT ONE Administration Sodium Chloride Confirm 11/30/18 19:39 11/30/18 19:49 Normal Saline Administered 11/30/18 19:40 20 mls/hr Dose Administration 20 mls @ as directed .ROUTE .STK-MED ONE Iopamidol 100 ml 11/30/18 21:48 11/30/18 22:06 Isovue-370 (76%) IVPUSH 11/30/18 21:49 100 ml ONETIME ONE Administration Ketorolac Tromethamine 30 mg 11/30/18 19:32 11/30/18 19:48 Toradol IVPUSH 11/30/18 19:33 30 mg ONETIME ONE Administration Morphine Sulfate 2 mg 11/30/18 22:37 Morphine IVPUSH 11/30/18 22:38 ONETIME ONE Ondansetron HCl 8 mg 11/30/18 19:13 11/30/18 19:48 Zofran IVPUSH 11/30/18 19:14 8 mg ONETIME ONE Administration Pantoprazole Sodium 80 mg 11/30/18 19:32 11/30/18 19:48 Protonix Iv IVPUSH 11/30/18 19:33 80 mg .BOLUS ONE Administration Departure - Departure Time of Disposition: 22:53 Disposition: Admitted As Inpatient 65 Condition: Poor Clinical Impression: Pancreatitis - Discharge Information Forms: ED Department Discharge - My Orders Last 24 Hours: My Active Orders 11/30/18 19:12 EKG Documentation Completion [RC] STAT 11/30/18 21:45 Sodium Chloride 0.9% [Normal Saline] 1,000 ml IV STAT - Assessment/Plan Last 24 Hours: My Active Orders 11/30/18 19:12 EKG Documentation Completion [RC] STAT 11/30/18 21:45 Sodium Chloride 0.9% [Normal Saline] 1,000 ml IV STAT
[2018-11-30] MEDS ORDERED: Pantoprazole 40 MG Vial IVPUSH ONE (19:32)
[2018-11-30] MEDS ORDERED: Ketorolac 30 MG/ML SDV IVPUSH ONE (19:32)
[2018-11-30] MEDS ORDERED: Sodium Chloride 0.9% 20 ML ONE (19:39)
[2018-11-30 21:38] LABS: BLOOD UREA NITROGEN,BUN 12 mg/dL (7.0-18.0); CARBON DIOXIDE,CO2 21.1 mmol/L (21.0-32.0); CHLORIDE,CL 95 mmol/L (98-107); GLUCOSE RANDOM 165 mg/dL (74-106); POTASSIUM,K 3.2 mmol/L (3.5-5.1); SODIUM,NA 139 mmol/L (136-148)
[2018-11-30] MEDS ORDERED: Sodium Chloride 0.9% 1,000 ML IV SCH (21:45)
[2018-11-30 21:48] LABS: LIPASE 3207 U/L (73-393)
[2018-11-30] MEDS ORDERED: Iopamidol 755 Mg/ML 100 ML Bottle IVPUSH ONE (21:48)
[2018-11-30] MEDS ORDERED: Morphine 2 MG/ML Syringe IVPUSH ONE (22:37)
--- NOTE | 2018-11-30 22:42 | CT ---
INDICATION: Abdominal pain TECHNIQUE: CT Abdomen and pelvis with i.v. contrast. Coronal and sagittal reformats were obtained. CONTRAST: 100 mL Isovue 370 COMPARISON: 10/26/2017 FINDINGS: Lower chest: Unremarkable. Liver: Severe diffuse fatty infiltration of the liver is noted. Spleen: Unremarkable. Pancreas: Mild retroperitoneal edema is present posterior to the pancreatic tail and the left Gerota`s fascia. Gallbladder: Unremarkable. Kidney: Symmetric prominence of the renal cortices near the mid zone are present bilaterally without interval change, likely due to prominent columns of [place]. Adrenal: Unremarkable. Bowel: Unremarkable. The appendix is not identified. A small fat containing umbilical hernia is seen. Vascular: Unremarkable. Lymph: Unremarkable. Peritoneum: Unremarkable. No pneumoperitoneum is seen. No significant ascites is noted. Pelvis: Unremarkable. Soft tissue: Unremarkable. Bone: Unremarkable for age. IMPRESSIONS: 1. Mild retroperitoneal edema is present posterior to the pancreatic tail and the left Gerota`s fascia. Correlation with serum amylase and lipase levels are recommended to exclude acute pancreatitis. 2. Severe diffuse fatty infiltration of the liver is noted. Dictated by Simon Hernandez MD @ 11/30/2018 10:41:48 PM Please note that all CT scans at this facility use dose modulation, iterative reconstruction, and/or weight-based dosing when appropriate to reduce radiation dose to as low as reasonably achievable. Dictated by: Simon Hernandez MD @ 11/30/2018 22:41:51 (Electronically Signed)
[2018-12-01] MEDS: Sodium Chloride 0.9% 1,000 ML IV SCH ×2 (00:28→05:13)
[2018-12-01] MEDS: Morphine 2 MG/ML Syringe IVPUSH PRN ×2 (00:33→04:54)
[2018-12-01] MEDS ORDERED: hydrALAZINE 20 MG/ML SDV IVPUSH PRN (00:55)
[2018-12-01 06:27] LABS: BLOOD UREA NITROGEN,BUN 8 mg/dL (7.0-18.0); CARBON DIOXIDE,CO2 18.8 mmol/L (21.0-32.0); CHLORIDE,CL 101 mmol/L (98-107); GLUCOSE RANDOM 144 mg/dL (74-106); POTASSIUM,K 3.8 mmol/L (3.5-5.1); SODIUM,NA 140 mmol/L (136-148)
--- NOTE | 2018-12-01 06:34 | PCM.HP ---
H&P History of Present Illness - General Date of Service: 12/01/18 Admit Problem/Dx: Admission Diagnosis/Problem Admission Diagnosis/Problem Pancreatitis Source of Information: Patient History Limitations: Reports: No Limitations - History of Present Illness Initial Comments - Free Text/Narative: The patient is an otherwise healthy 63-year-old gentleman who had presented to the emergency department with a concern of generalized body aches and abdominal pain which radiates to his back. Patient does not take any medications normally. The patient does consume alcohol on a daily basis. The patient says that he has had significant vomiting associated with this abdominal pain and his symptoms started approximately 2-3 days ago. The patient has described the pain as sharp and stabbing Patient has had dizziness and lightheadedness associated with this. He's had no specific aggravating or relieving factors. The patient's primary consideration at this time is thirst and hunger. He has been nothing by mouth with fluids. Onset of Symptoms: Reports: Gradual Duration of Symptoms: Reports: Day(s): Location: Reports: Abdomen, Generalized Quality: Reports: Ache, Stabbing, Throbbing Severity: Moderate Improves with: Reports: Medication Worsens with: Reports: Eating Associated Symptoms: Reports: Nausea/Vomiting Abdomen Pain Score (Numeric/FACES): 10 - Related Data Allergies/Adverse Reactions: Allergies Allergy/AdvReac Type Severity Reaction Status Date / Time No Known Allergies Allergy Verified 12/01/18 02:32 Home Medications: Home Meds . [No Known Home Meds] 05/03/18 [History] Past Medical History - Past Health History Medical/Surgical History: Denies Medical/Surgical History HEENT History: Reports: None Cardiovascular History: Reports: High Cholesterol, Hypertension Respiratory History: Reports: None Gastrointestinal History: Reports: GI Bleed Genitourinary History: Reports: None Musculoskeletal History: Reports: None Neurological History: Reports: None Psychiatric History: Reports: None Endocrine/Metabolic History: Reports: None Hematologic History: Reports: None Immunologic History: Reports: None Oncologic (Cancer) History: Reports: None Dermatologic History: Reports: None - Infectious Disease History Infectious Disease History: Reports: None - Past Surgical History GI Surgical History: Reports: EGD Social & Family History - Family History Family Medical History: Noncontributory - Tobacco Use Smoking Status *Q: Current Every Day Smoker Years of Tobacco use: 40 Packs/Tins Daily: 1 - Caffeine Use Caffeine Use: Reports: None - Recreational Drug Use Recreational Drug Use: No H&P Review of Systems - Review of Systems: Review Of Systems: See Below General: Reports: Weakness, Fatigue HEENT: Reports: No Symptoms Pulmonary: Reports: No Symptoms Cardiovascular: Reports: No Symptoms Gastrointestinal: Reports: Abdominal Pain, Nausea, Vomiting Genitourinary: Reports: No Symptoms Musculoskeletal: Reports: No Symptoms Skin: Reports: No Symptoms Psychiatric: Reports: No Symptoms Neurological: Reports: No Symptoms Hematologic/Lymphatic: Reports: No Symptoms Immunologic: Reports: No Symptoms Exam - Exam Exam: See Below - Vital Signs Vital Signs: Last Vital Signs Temp 36.6 C 12/01/18 04:00 Pulse 80 12/01/18 04:00 Resp 16 12/01/18 04:00 BP 173/95 H 12/01/18 04:00 Pulse Ox 98 12/01/18 04:00 Weight: 62.369 kg - Exam Quality Assessment: No: Supplemental Oxygen General: Alert, Oriented, Cooperative, Mild Distress HEENT: Conjunctiva Clear, EACs Clear, EOMI, Nares Patent, Pupils Equal, PERRLA. No: Mucosa Moist & [place] (Dry) Neck: Supple, Trachea Midline Lungs: Clear to Auscultation, Normal Respiratory Effort Cardiovascular: Regular Rate, Regular Rhythm GI/Abdominal Exam: Normal Bowel Sounds, Soft, No Organomegaly, No Distention, Tender (Epigastrium). No: Guarding, Rigid, Rebound Back Exam: Normal Inspection, Full Range of Motion Extremities: Normal Inspection, Normal Range of Motion, No Pedal Edema Skin: Warm, Dry, Intact Neurological: Cranial Nerves Intact Neuro Extensive - Mental Status: Alert, Oriented x3 Psychiatric: Alert, Normal Affect, Normal Mood - Patient Data Lab Results Last 24 hrs: Laboratory Results - last 24 hr 11/30/18 11/30/18 11/30/18 Range/Units 19:32 19:32 19:32 WBC 9.59 (4.0-11.0) K/uL RBC 4.04 L (4.50-5.90) M/uL Hgb 13.8 (13.0-17.0) g/dL Hct 37.8 L (38.0-50.0) % MCV 93.6 (80.0-98.0) fL MCH 34.2 H (27.0-32.0) pg MCHC 36.5 (31.0-37.0) g/dL RDW Std Deviation 48.7 (28.0-62.0) fl RDW Coeff of Stephane 14 (11.0-15.0) % Plt Count 80 L (150-400) K/uL MPV 11.30 (7.40-12.00) fL Neut % (Auto) 80.1 H (48.0-80.0) % Lymph % (Auto) 6.2 L (16.0-40.0) % [place] % (Auto) 13.6 (0.0-15.0) % Eos % (Auto) 0.0 (0.0-7.0) % Baso % (Auto) 0.1 (0.0-1.5) % Neut # (Auto) 7.7 H (1.4-5.7) K/uL Lymph # (Auto) 0.6 (0.6-2.4) K/uL [place] # (Auto) 1.3 H (0.0-0.8) K/uL Eos # (Auto) 0.0 (0.0-0.7) K/uL Baso # (Auto) 0.0 (0.0-0.1) K/uL Add Manual Diff Neutrophils % (Manual) (48.0-80.0) % Band Neutrophils % % Lymphocytes % (Manual) (16.0-40.0) % Monocytes % (Manual) (0.0-15.0) % Nucleated RBC % 0.2 /100WBC Absolute Seg Neuts (1.4-5.7) Band Neutrophils # Lymphocytes # (Manual) (0.6-2.4) Monocytes # (Manual) (0.0-0.8) Nucleated RBCs # 0 K/uL Sodium 139 (136-148) mmol/L Potassium 3.2 L (3.5-5.1) mmol/L Chloride 95 L (98-107) mmol/L Carbon Dioxide 21.1 (21.0-32.0) mmol/L BUN 12 (7.0-18.0) mg/dL Creatinine 0.8 (0.8-1.3) mg/dL Est Cr Clr Drug Dosing 93.28 mL/min Estimated GFR (MDRD) > 60.0 ml/min Glucose 165 H (74-106) mg/dL Calcium 10.0 (8.5-10.1) mg/dL Total Bilirubin 1.6 H (0.2-1.0) mg/dL AST 207 H (15-37) IU/L ALT 60 (14-63) IU/L Alkaline Phosphatase 133 H (46-116) U/L Troponin I < 0.050 (0.000-0.056) ng/mL Total Protein 8.8 H (6.4-8.2) g/dL Albumin 4.1 (3.4-5.0) g/dL Globulin 4.7 H (2.6-4.0) g/dL Albumin/Globulin Ratio 0.9 (0.9-1.6) Lipase 3207 H (73-393) U/L Urine Color Urine Appearance Urine pH (5.0-8.0) Ur Specific [place] (1.001-1.035) Urine Protein (NEGATIVE) mg/dL Urine Glucose (UA) (NEGATIVE) mg/dL Urine Ketones (NEGATIVE) mg/dL Urine Occult Blood (NEGATIVE) Urine Nitrite (NEGATIVE) Urine Bilirubin (NEGATIVE) Urine Ictotest Urine Urobilinogen (<2.0) EU/dL Ur Leukocyte Esterase (NEGATIVE) Urine RBC (0-2/HPF) Urine WBC (0-5/HPF) Ur Epithelial Cells (NONE-FEW) Urine Bacteria (NEGATIVE) Hyaline Casts (0-2/LPF) Urine Mucus (NONE-MOD) Ethyl Alcohol 9 mg/dL 11/30/18 12/01/18 12/01/18 Range/Units 21:50 05:03 05:03 WBC 10.26 (4.0-11.0) K/uL RBC 3.87 L (4.50-5.90) M/uL Hgb 12.9 L (13.0-17.0) g/dL Hct 36.6 L (38.0-50.0) % MCV 94.6 (80.0-98.0) fL MCH 33.3 H (27.0-32.0) pg MCHC 35.2 (31.0-37.0) g/dL RDW Std Deviation 50.0 (28.0-62.0) fl RDW Coeff of Stephane 14 (11.0-15.0) % Plt Count 94 L (150-400) K/uL MPV 12.50 H (7.40-12.00) fL Neut % (Auto) (48.0-80.0) % Lymph % (Auto) (16.0-40.0) % [place] % (Auto) (0.0-15.0) % Eos % (Auto) (0.0-7.0) % Baso % (Auto) (0.0-1.5) % Neut # (Auto) (1.4-5.7) K/uL Lymph # (Auto) (0.6-2.4) K/uL [place] # (Auto) (0.0-0.8) K/uL Eos # (Auto) (0.0-0.7) K/uL Baso # (Auto) (0.0-0.1) K/uL Add Manual Diff YES Neutrophils % (Manual) 77 (48.0-80.0) % Band Neutrophils % 10 % Lymphocytes % (Manual) 4 L (16.0-40.0) % Monocytes % (Manual) 9 (0.0-15.0) % Nucleated RBC % 0.2 /100WBC Absolute Seg Neuts 7.9 H (1.4-5.7) Band Neutrophils # 1.0 Lymphocytes # (Manual) 0.4 L (0.6-2.4) Monocytes # (Manual) 0.9 H (0.0-0.8) Nucleated RBCs # 0 K/uL Sodium 140 (136-148) mmol/L Potassium 3.8 (3.5-5.1) mmol/L Chloride 101 (98-107) mmol/L Carbon Dioxide 18.8 L (21.0-32.0) mmol/L BUN 8 (7.0-18.0) mg/dL Creatinine 0.9 (0.8-1.3) mg/dL Est Cr Clr Drug Dosing 73.15 mL/min Estimated GFR (MDRD) > 60.0 ml/min Glucose 144 H (74-106) mg/dL Calcium 9.6 (8.5-10.1) mg/dL Total Bilirubin (0.2-1.0) mg/dL AST (15-37) IU/L ALT (14-63) IU/L Alkaline Phosphatase (46-116) U/L Troponin I (0.000-0.056) ng/mL Total Protein (6.4-8.2) g/dL Albumin (3.4-5.0) g/dL Globulin (2.6-4.0) g/dL Albumin/Globulin Ratio (0.9-1.6) Lipase (73-393) U/L Urine Color YELLOW Urine Appearance CLEAR Urine pH 6.0 (5.0-8.0) Ur Specific [place] >= 1.030 (1.001-1.035) Urine Protein 30 H (NEGATIVE) mg/dL Urine Glucose (UA) NEGATIVE (NEGATIVE) mg/dL Urine Ketones >=80 (NEGATIVE) mg/dL Urine Occult Blood MODERATE H (NEGATIVE) Urine Nitrite NEGATIVE (NEGATIVE) Urine Bilirubin SMALL H (NEGATIVE) Urine Ictotest NEGATIVE Urine Urobilinogen 0.2 (<2.0) EU/dL Ur Leukocyte Esterase NEGATIVE (NEGATIVE) Urine RBC 0-2 (0-2/HPF) Urine WBC 0-2 (0-5/HPF) Ur Epithelial Cells RARE (NONE-FEW) Urine Bacteria FEW (NEGATIVE) Hyaline Casts 0-1 (0-2/LPF) Urine Mucus LIGHT (NONE-MOD) Ethyl Alcohol mg/dL Result Diagrams: 12/01/18 05:03 12/01/18 05:03 - Problem List (1) Pancreatitis SNOMED Code(s): 09422161 ICD Code: K85.90 - ACUTE PANCREATITIS WITHOUT NECROSIS OR INFECTION, UNSP Status: Acute Priority: High Current Visit: Yes Qualifiers: Chronicity: acute Pancreatitis type: unspecified pancreatitis type Acute pancreatitis complication: no infection or necrosis Qualified Code(s): K85.90 - Acute pancreatitis without necrosis or infection, unspecified (2) Intractable nausea and vomiting SNOMED Code(s): 250976531 ICD Code: R11.2 - NAUSEA WITH VOMITING, UNSPECIFIED Status: Acute Priority: High Current Visit: Yes Qualifiers: Vomiting type: unspecified Qualified Code(s): R11.2 - Nausea with vomiting , unspecified (3) Generalized abdominal pain SNOMED Code(s): 127631844 ICD Code: R10.84 - GENERALIZED ABDOMINAL PAIN Status: Acute Priority: High Current Visit: Yes (4) Thrombocytopenia SNOMED Code(s): 499646752 ICD Code: D69.6 - THROMBOCYTOPENIA, UNSPECIFIED Status: Chronic Priority : Medium Current Visit: Yes (5) Alcohol use SNOMED Code(s): 908177 ICD Code: Z72.89 - OTHER PROBLEMS RELATED TO LIFESTYLE Status: Chronic Priority: Medium Current Visit: Yes Problem List Initiated/Reviewed/Updated: Yes Orders Last 24hrs: Active Orders 24 hr Category Date Time Status Admission Status [Patient Status] [ADT] Stat ADT 11/30/18 22:54 Active NPO [Nothing Per Oral Diet] [DIET] Diet 12/01/18 Breakfast Active Morphine Med 11/30/18 23:35 Active 2 mg IVPUSH Q4H PRN Sodium Chloride 0.9% [Normal Saline] 1,000 ml Med 11/30/18 23:45 Active IV ASDIRECTED hydrALAZINE [Apresoline] Med 12/01/18 00:55 Active 10 mg IVPUSH Q8H PRN Medication Orders Hydralazine HCl (Apresoline) 10 mg IVPUSH Q8H PRN PRN Reason: Hypertension Last Admin: 12/01/18 01:11 Dose: 10 mg Sodium Chloride (Normal Saline) 1,000 mls @ 125 mls/hr IV ASDIRECTED MARCEL Last Admin: 12/01/18 05:13 Dose: 125 mls/hr Infusion: 12/01/18 05:13 Dose: 125 mls/hr Admin: 12/01/18 00:28 Dose: 125 mls/hr Morphine Sulfate (Morphine) 2 mg IVPUSH Q4H PRN PRN Reason: Pain (severe 7-10) Last Admin: 12/01/18 04:54 Dose: 2 mg Admin: 12/01/18 00:33 Dose: 2 mg Assessment/Plan Comment:: The patient is a 63-year-old gentleman who had been admitted secondary to pancreatitis. On admission the patient's lipase was noted to be at 3207 units per liter. Since admission yesterday he has been doing much better less nausea and vomiting. Less abdominal pain. The patient's primary concern is hunger and thirst at this point. The patient does have a history of alcohol use and this is likely contributing factor although not definitively to both the pancreatitis and thrombocytopenia. The patient's blood alcohol level was 0.009. I've ordered repeat laboratory testings and his platelets remain stable at 94, 000. DVT prophylaxis by Lovenox or heparin is contraindicated. SCDs were ordered. The patient has been encouraged to ambulate. I've advanced his diet to clear liquid diet. If the patient has had some improvement in his symptomology and his nausea and vomiting is resolved we'll advance his diet as tolerated. He should be appropriate for discharge in 1-2 days.
[2018-12-01] MEDS ORDERED: Temazepam 15 MG Cap PO PRN (06:46)
[2018-12-01] MEDS ORDERED: Acetaminophen 325 MG Tab PO PRN (06:46)
[2018-12-01] MEDS ORDERED: Morphine 2 MG/ML Syringe IVPUSH PRN (06:46)
[2018-12-01] MEDS ORDERED: Sodium Chloride 0.9% 1,000 ML IV SCH (07:00)
--- NOTE | 2018-12-01 10:54 | PCM.DCSUM1 ---
Discharge Summary - Hospital Course Diagnosis: Stroke: No - Discharge Data Discharge Date: 12/01/18 Discharge Disposition: Home, Self-Care 01 Condition: Good - Discharge Diagnosis/Problem(s) (1) Pancreatitis SNOMED Code(s): 52033476 ICD Code: K85.90 - ACUTE PANCREATITIS WITHOUT NECROSIS OR INFECTION, UNSP Status: Resolved Priority: High Qualifiers: Chronicity: acute Pancreatitis type: unspecified pancreatitis type Acute pancreatitis complication: no infection or necrosis Qualified Code(s): K85.90 - Acute pancreatitis without necrosis or infection, unspecified (2) Intractable nausea and vomiting SNOMED Code(s): 057081451 ICD Code: R11.2 - NAUSEA WITH VOMITING, UNSPECIFIED Status: Resolved Priority: High Qualifiers: Vomiting type: unspecified Qualified Code(s): R11.2 - Nausea with vomiting , unspecified (3) Generalized abdominal pain SNOMED Code(s): 598378442 ICD Code: R10.84 - GENERALIZED ABDOMINAL PAIN Status: Resolved Priority: High (4) Thrombocytopenia SNOMED Code(s): 874966789 ICD Code: D69.6 - THROMBOCYTOPENIA, UNSPECIFIED Status: Chronic Priority : Medium (5) Alcohol use SNOMED Code(s): 445519 ICD Code: Z72.89 - OTHER PROBLEMS RELATED TO LIFESTYLE Status: Chronic Priority: Medium - Patient Summary/Data Hospital Course: The patient's 63-year-old gentleman who presented to the emergency department out of concern for generalized body aches. The patient had been diagnosed with pancreatitis. Patient said that the pain had started approximately 2-3 days prior to presentation. The pain had been sharp and stabbing. The patient was admitted, aggressively fluid resuscitated and his pain was controlled with the use of narcotic pain medications. His nausea and vomiting and also been controlled with the use of Zofran. Initially upon admission the patient's lipase was at 3207 units per liter. By time of discharge the patient's lipase had improved to 1538 units per liter. The patient reportedly had had his symptoms relieved. He felt like he was appropriate to go home. The patient's nausea and vomiting had resolved. He been tolerating diet. The patient has been recommended to follow-up with his primary care physician in one week. He is also to have a regular diet as tolerated. During hospitalization the patient was noted be thrombocytopenic with a platelet count of 94,000. This is likely secondary to his alcohol consumption. Patient should follow-up with her primary care physician for this. He is to refrain from alcohol consumption. The patient is to have activity as tolerated. The patient otherwise has been hemodynamically stable and he is discharged from acute hospitalization with the recommendations listed above. - Patient Instructions Diet: Usual Diet as Tolerated Activity: As Tolerated - Discharge Plan *PRESCRIPTION DRUG MONITORING PROGRAM REVIEWED*: No *COPY OF PRESCRIPTION DRUG MONITORING REPORT IN PATIENT PATRICK: No Home Medications: Home Meds . [No Known Home Meds] 05/03/18 [History] Oxygen Therapy Mode: Room Air Patient Handouts: Platelet Count Test, Abdominal Pain, Adult, [id number] Referrals: Vinnie Madrigal MD [Resident] - 12/15/18 2:45 pm - Discharge Summary/Plan Comment DC Time >30 min.: Yes - General Info Date of Service: 12/01/18 Admission Dx/Problem (Free Text: Admission Diagnosis/Problem Admission Diagnosis/Problem Pancreatitis Subjective Update: The patient says that he feels better. His his symptoms have resolved. He feels like he can go home. Functional Status: Reports: Pain Controlled - Review of Systems General: Reports: No Symptoms HEENT: Reports: No Symptoms Pulmonary: Reports: No Symptoms Cardiovascular: Reports: No Symptoms Gastrointestinal: Reports: No Symptoms Genitourinary: Reports: No Symptoms Musculoskeletal: Reports: No Symptoms Skin: Reports: No Symptoms Neurological: Reports: No Symptoms Psychiatric: Reports: No Symptoms - Patient Data Vitals - Most Recent: Last Vital Signs Temp 36.9 C 12/01/18 08:00 Pulse 84 12/01/18 08:00 Resp 16 12/01/18 08:00 BP 170/103 H 12/01/18 08:00 Pulse Ox 96 12/01/18 08:00 Weight - Most Recent: 62.369 kg I&O - Last 24 hours: Intake & Output 11/30/18 12/01/18 12/01/18 22:59 06:59 14:59 Intake Total 700 Output Total 300 Balance 400 Lab Results - Last 24 hrs: Laboratory Results - last 24 hr 11/30/18 11/30/18 11/30/18 Range/Units 19:32 19:32 19:32 WBC 9.59 (4.0-11.0) K/uL RBC 4.04 L (4.50-5.90) M/uL Hgb 13.8 (13.0-17.0) g/dL Hct 37.8 L (38.0-50.0) % MCV 93.6 (80.0-98.0) fL MCH 34.2 H (27.0-32.0) pg MCHC 36.5 (31.0-37.0) g/dL RDW Std Deviation 48.7 (28.0-62.0) fl RDW Coeff of Stephane 14 (11.0-15.0) % Plt Count 80 L (150-400) K/uL MPV 11.30 (7.40-12.00) fL Neut % (Auto) 80.1 H (48.0-80.0) % Lymph % (Auto) 6.2 L (16.0-40.0) % [place] % (Auto) 13.6 (0.0-15.0) % Eos % (Auto) 0.0 (0.0-7.0) % Baso % (Auto) 0.1 (0.0-1.5) % Neut # (Auto) 7.7 H (1.4-5.7) K/uL Lymph # (Auto) 0.6 (0.6-2.4) K/uL [place] # (Auto) 1.3 H (0.0-0.8) K/uL Eos # (Auto) 0.0 (0.0-0.7) K/uL Baso # (Auto) 0.0 (0.0-0.1) K/uL Add Manual Diff Neutrophils % (Manual) (48.0-80.0) % Band Neutrophils % % Lymphocytes % (Manual) (16.0-40.0) % Monocytes % (Manual) (0.0-15.0) % Nucleated RBC % 0.2 /100WBC Absolute Seg Neuts (1.4-5.7) Band Neutrophils # Lymphocytes # (Manual) (0.6-2.4) Monocytes # (Manual) (0.0-0.8) Nucleated RBCs # 0 K/uL Sodium 139 (136-148) mmol/L Potassium 3.2 L (3.5-5.1) mmol/L Chloride 95 L (98-107) mmol/L Carbon Dioxide 21.1 (21.0-32.0) mmol/L BUN 12 (7.0-18.0) mg/dL Creatinine 0.8 (0.8-1.3) mg/dL Est Cr Clr Drug Dosing 93.28 mL/min Estimated GFR (MDRD) > 60.0 ml/min Glucose 165 H (74-106) mg/dL Calcium 10.0 (8.5-10.1) mg/dL Total Bilirubin 1.6 H (0.2-1.0) mg/dL AST 207 H (15-37) IU/L ALT 60 (14-63) IU/L Alkaline Phosphatase 133 H (46-116) U/L Troponin I < 0.050 (0.000-0.056) ng/mL Total Protein 8.8 H (6.4-8.2) g/dL Albumin 4.1 (3.4-5.0) g/dL Globulin 4.7 H (2.6-4.0) g/dL Albumin/Globulin Ratio 0.9 (0.9-1.6) Lipase 3207 H (73-393) U/L Urine Color Urine Appearance Urine pH (5.0-8.0) Ur Specific [place] (1.001-1.035) Urine Protein (NEGATIVE) mg/dL Urine Glucose (UA) (NEGATIVE) mg/dL Urine Ketones (NEGATIVE) mg/dL Urine Occult Blood (NEGATIVE) Urine Nitrite (NEGATIVE) Urine Bilirubin (NEGATIVE) Urine Ictotest Urine Urobilinogen (<2.0) EU/dL Ur Leukocyte Esterase (NEGATIVE) Urine RBC (0-2/HPF) Urine WBC (0-5/HPF) Ur Epithelial Cells (NONE-FEW) Urine Bacteria (NEGATIVE) Hyaline Casts (0-2/LPF) Urine Mucus (NONE-MOD) Ethyl Alcohol 9 mg/dL 11/30/18 12/01/18 12/01/18 Range/Units 21:50 05:03 05:03 WBC 10.26 (4.0-11.0) K/uL RBC 3.87 L (4.50-5.90) M/uL Hgb 12.9 L (13.0-17.0) g/dL Hct 36.6 L (38.0-50.0) % MCV 94.6 (80.0-98.0) fL MCH 33.3 H (27.0-32.0) pg MCHC 35.2 (31.0-37.0) g/dL RDW Std Deviation 50.0 (28.0-62.0) fl RDW Coeff of Stephane 14 (11.0-15.0) % Plt Count 94 L (150-400) K/uL MPV 12.50 H (7.40-12.00) fL Neut % (Auto) (48.0-80.0) % Lymph % (Auto) (16.0-40.0) % [place] % (Auto) (0.0-15.0) % Eos % (Auto) (0.0-7.0) % Baso % (Auto) (0.0-1.5) % Neut # (Auto) (1.4-5.7) K/uL Lymph # (Auto) (0.6-2.4) K/uL [place] # (Auto) (0.0-0.8) K/uL Eos # (Auto) (0.0-0.7) K/uL Baso # (Auto) (0.0-0.1) K/uL Add Manual Diff YES Neutrophils % (Manual) 77 (48.0-80.0) % Band Neutrophils % 10 % Lymphocytes % (Manual) 4 L (16.0-40.0) % Monocytes % (Manual) 9 (0.0-15.0) % Nucleated RBC % 0.2 /100WBC Absolute Seg Neuts 7.9 H (1.4-5.7) Band Neutrophils # 1.0 Lymphocytes # (Manual) 0.4 L (0.6-2.4) Monocytes # (Manual) 0.9 H (0.0-0.8) Nucleated RBCs # 0 K/uL Sodium 140 (136-148) mmol/L Potassium 3.8 (3.5-5.1) mmol/L Chloride 101 (98-107) mmol/L Carbon Dioxide 18.8 L (21.0-32.0) mmol/L BUN 8 (7.0-18.0) mg/dL Creatinine 0.9 (0.8-1.3) mg/dL Est Cr Clr Drug Dosing 73.15 mL/min Estimated GFR (MDRD) > 60.0 ml/min Glucose 144 H (74-106) mg/dL Calcium 9.6 (8.5-10.1) mg/dL Total Bilirubin (0.2-1.0) mg/dL AST (15-37) IU/L ALT (14-63) IU/L Alkaline Phosphatase (46-116) U/L Troponin I (0.000-0.056) ng/mL Total Protein (6.4-8.2) g/dL Albumin (3.4-5.0) g/dL Globulin (2.6-4.0) g/dL Albumin/Globulin Ratio (0.9-1.6) Lipase (73-393) U/L Urine Color YELLOW Urine Appearance CLEAR Urine pH 6.0 (5.0-8.0) Ur Specific [place] >= 1.030 (1.001-1.035) Urine Protein 30 H (NEGATIVE) mg/dL Urine Glucose (UA) NEGATIVE (NEGATIVE) mg/dL Urine Ketones >=80 (NEGATIVE) mg/dL Urine Occult Blood MODERATE H (NEGATIVE) Urine Nitrite NEGATIVE (NEGATIVE) Urine Bilirubin SMALL H (NEGATIVE) Urine Ictotest NEGATIVE Urine Urobilinogen 0.2 (<2.0) EU/dL Ur Leukocyte Esterase NEGATIVE (NEGATIVE) Urine RBC 0-2 (0-2/HPF) Urine WBC 0-2 (0-5/HPF) Ur Epithelial Cells RARE (NONE-FEW) Urine Bacteria FEW (NEGATIVE) Hyaline Casts 0-1 (0-2/LPF) Urine Mucus LIGHT (NONE-MOD) Ethyl Alcohol mg/dL Med Orders - Current: Current Medications Acetaminophen (Tylenol) 650 mg PO Q4H PRN PRN Reason: Pain (Mild 1-3)/fever Hydralazine HCl (Apresoline) 10 mg IVPUSH Q8H PRN PRN Reason: Hypertension Last Admin: 12/01/18 01:11 Dose: 10 mg Sodium Chloride (Normal Saline) 1,000 mls @ 125 mls/hr IV ASDIRECTED MARCEL Last Admin: 12/01/18 05:13 Dose: 125 mls/hr Sodium Chloride (Normal Saline) 1,000 mls @ 125 mls/hr IV ASDIRECTED MARCEL Morphine Sulfate (Morphine) 2 mg IVPUSH Q4H PRN PRN Reason: Pain (severe 7-10) Last Admin: 12/01/18 04:54 Dose: 2 mg Morphine Sulfate (Morphine) 2 mg IVPUSH Q2H PRN PRN Reason: Pain (severe 7-10) Stop: 12/02/18 06:47 Temazepam (Restoril) 15 mg PO BEDTIME PRN PRN Reason: Sleep Discontinued Medications Sodium Chloride (Normal Saline) 1,000 mls @ 999 mls/hr IV STAT ONE Stop: 11/30/18 20:12 Last Admin: 11/30/18 19:47 Dose: 999 mls/hr Sodium Chloride (Normal Saline) Confirm Administered Dose 20 mls @ as directed .ROUTE .STK-MED ONE Stop: 11/30/18 19:40 Last Admin: 11/30/18 19:49 Dose: 20 mls/hr Sodium Chloride (Normal Saline) 1,000 mls @ 150 mls/hr IV STAT MARCEL Last Admin: 11/30/18 21:53 Dose: 150 mls/hr Iopamidol (Isovue-370 (76%)) 100 ml IVPUSH ONETIME ONE Stop: 11/30/18 21:49 Last Admin: 11/30/18 22:06 Dose: 100 ml Ketorolac Tromethamine (Toradol) 30 mg IVPUSH ONETIME ONE Stop: 11/30/18 19:33 Last Admin: 11/30/18 19:48 Dose: 30 mg Morphine Sulfate (Morphine) 2 mg IVPUSH ONETIME ONE Stop: 11/30/18 22:38 Last Admin: 11/30/18 23:07 Dose: 2 mg Ondansetron HCl (Zofran) 8 mg IVPUSH ONETIME ONE Stop: 11/30/18 19:14 Last Admin: 11/30/18 19:48 Dose: 8 mg Pantoprazole Sodium (Protonix Iv) 80 mg IVPUSH .BOLUS ONE Stop: 11/30/18 19:33 Last Admin: 11/30/18 19:48 Dose: 80 mg - Exam Quality Assessment: Denies: Supplemental Oxygen General: Reports: Alert, Oriented, Cooperative, No Acute Distress HEENT: Reports: Pupils Equal, Pupils Reactive, EOMI, Mucous Membr. Moist/[place] Neck: Reports: Supple, Trachea Midline Lungs: Reports: Clear to Auscultation, Normal Respiratory Effort Cardiovascular: Reports: Regular Rate, Regular Rhythm GI/Abdominal Exam: Normal Bowel Sounds, Soft, Non-Tender, No Distention Back Exam: Reports: Normal Inspection, Full Range of Motion Extremities: Normal Inspection, No Pedal Edema Skin: Reports: Warm, Dry, Intact Neurological: Reports: No New Focal Deficit Psy/Mental Status: Reports: Alert, Normal Affect, Normal Mood *Q Meaningful Use (DIS) - VTE *Q VTE Pharmacological Contraindications *Q: Thrombocytopenia
== END 2018-12-01 12:00 | disposition home or self-care (01) | DRG 440 ==
LOC: MW.ED 18:58 → MW.MS 22:54
PROVIDERS: ADMIT Internal Medicine; ATTEND Internal Medicine
DX: K85.90 Acute pancreatitis without necrosis or infection, unspecified (principal); E78.00 Pure hypercholesterolemia, unspecified; D69.59 Other secondary thrombocytopenia; I10 Essential (primary) hypertension; F17.210 Nicotine dependence, cigarettes, uncomplicated; Z72.89 Other problems related to lifestyle; Y90.0 Blood alcohol level of less than 20 mg/100 ml
CPT/HCPCS: 36415; 74177; 74177-26; 80048; 80053; 81001; 83690; 84484; 85025; 93005; 96361; 96374; 96375; 99284; 99285-25; C9113; G0480; J0360; J1885; J2270; J2405; J7040; Q9967

== ENCOUNTER 2018-12-01 17:07 | Observation (INO) | payer MEDICAID ==
[2018-12-01] MEDS ORDERED: Sodium Chloride 0.9% 1,000 ML IV ONE (17:22)
[2018-12-01] MEDS ORDERED: Ondansetron 4 MG/2 ML SDV IVPUSH ONE (17:22)
--- NOTE | 2018-12-01 17:48 | EDM.PDOC ---
ED HPI GENERAL MEDICAL PROBLEM - General Chief Complaint: Abdominal Pain Stated Complaint: PT HAS STOMACH PAINS Time Seen by Provider: 12/01/18 17:21 - History of Present Illness INITIAL COMMENTS - FREE TEXT/NARRATIVE: HISTORY AND PHYSICAL: History of present illness: Patient is a 63-year-old black male who was recently discharged after treatment for acute pancreatitis who returns today with recurrence of his pain nausea and vomiting. He denies alcohol use today denies trauma denies fever chills or other complaints. On his prior admission he had a lipase noted to be 3000. Review of systems: As per history of present illness and below otherwise all systems reviewed and negative. Past medical history: As per history of present illness and as reviewed below otherwise noncontributory. Surgical history: As per history of present illness and as reviewed below otherwise noncontributory. Social history: No reported history of drug or alcohol abuse. Family history: As per history of present illness and as reviewed below otherwise noncontributory. Physical exam: HEENT: Atraumatic, normocephalic, pupils reactive, negative for conjunctival pallor or scleral icterus, mucous membranes moist, throat clear, neck supple, nontender, trachea midline. Lungs: Clear to auscultation, breath sounds equal bilaterally, chest nontender. Heart: S1S2, regular, negative for clicks, rubs, or JVD. Abdomen: Soft, nondistended, diffuse nonlocalized tenderness Negative for masses or hepatosplenomegaly. Negative for costovertebral tenderness. Pelvis: Stable nontender. Genitourinary: Deferred. Rectal: Deferred. Extremities: Atraumatic, negative for cords or calf pain. Neurovascular unremarkable. Neuro: Awake, alert, oriented. Cranial nerves II through XII unremarkable. Cerebellum unremarkable. Motor and sensory unremarkable throughout. Exam nonfocal. Diagnostics: CBC CMP lipase chest x-ray Therapeutics: Saline 1 L bolus Zofran 4 mg IV Impression: #1 pancreatitis Definitive disposition and diagnosis as appropriate pending reevaluation and review of above. Generalized Pain Score (Numeric/FACES): 10 - Related Data Allergies Allergy/AdvReac Type Severity Reaction Status Date / Time No Known Allergies Allergy Verified 12/01/18 17:28 Home Meds: Home Meds . [No Known Home Meds] 05/03/18 [History] Past Medical History - Past Health History Medical/Surgical History: Denies Medical/Surgical History HEENT History: Reports: None Cardiovascular History: Reports: High Cholesterol, Hypertension Respiratory History: Reports: None Gastrointestinal History: Reports: GI Bleed Genitourinary History: Reports: None Musculoskeletal History: Reports: None Neurological History: Reports: None Psychiatric History: Reports: None Endocrine/Metabolic History: Reports: None Hematologic History: Reports: None Immunologic History: Reports: None Oncologic (Cancer) History: Reports: None Dermatologic History: Reports: None - Infectious Disease History Infectious Disease History: Reports: None - Past Surgical History GI Surgical History: Reports: EGD Social & Family History - Family History Family Medical History: Noncontributory - Tobacco Use Smoking Status *Q: Current Every Day Smoker Years of Tobacco use: 40 Packs/Tins Daily: 1 - Caffeine Use Caffeine Use: Reports: Coffee - Alcohol Use Days Per Week of Alcohol Use: 4 Number of Drinks Per Day: 4 Total Drinks Per Week: 16 - Recreational Drug Use Recreational Drug Use: No ED ROS GENERAL - Review of Systems Review Of Systems: ROS reveals no pertinent complaints other than HPI. ED EXAM, GENERAL - Physical Exam Exam: See Below (See dictation) Course - Vital Signs Last Recorded V/S: Last Vital Signs Temp 36.4 C 12/01/18 17:29 Pulse 74 12/01/18 17:29 Resp 18 12/01/18 17:29 BP 157/87 H 12/01/18 17:29 Pulse Ox 99 12/01/18 17:29 - Orders/Labs/Meds Orders: Active Orders 24 hr Category Date Time Status COMPREHENSIVE METABOLIC PN,CMP [CHEM] Stat Lab 12/01/18 17:29 Received LIPASE [CHEM] Stat Lab 12/01/18 17:29 Received UA RFX LEO AND CULT IF INDIC [URIN] Stat Lab 12/01/18 17:15 Ordered Sodium Chloride 0.9% [Normal Saline] 1,000 ml Med 12/01/18 17:22 Active IV STAT Medication Orders Sodium Chloride (Normal Saline) 1,000 mls @ 999 mls/hr IV STAT ONE Stop: 12/01/18 18:22 Last Admin: 12/01/18 17:44 Dose: 999 mls/hr Labs: Laboratory Tests 12/01/18 Range/Units 17:29 WBC 10.91 (4.0-11.0) K/uL RBC 3.92 L (4.50-5.90) M/uL Hgb 13.2 (13.0-17.0) g/dL Hct 36.5 L (38.0-50.0) % MCV 93.1 (80.0-98.0) fL MCH 33.7 H (27.0-32.0) pg MCHC 36.2 (31.0-37.0) g/dL RDW Std Deviation 48.0 (28.0-62.0) fl RDW Coeff of Stephane 14 (11.0-15.0) % Plt Count 76 L (150-400) K/uL MPV 11.80 (7.40-12.00) fL Neut % (Auto) 78.3 (48.0-80.0) % Lymph % (Auto) 5.2 L (16.0-40.0) % [place] % (Auto) 16.5 H (0.0-15.0) % Eos % (Auto) 0.0 (0.0-7.0) % Baso % (Auto) 0.0 (0.0-1.5) % Neut # (Auto) 8.5 H (1.4-5.7) K/uL Lymph # (Auto) 0.6 (0.6-2.4) K/uL [place] # (Auto) 1.8 H (0.0-0.8) K/uL Eos # (Auto) 0.0 (0.0-0.7) K/uL Baso # (Auto) 0.0 (0.0-0.1) K/uL Nucleated RBC % 0.0 /100WBC Nucleated RBCs # 0 K/uL Meds: Medications Generic Name Dose Route Start Last Admin Trade Name Freq PRN Reason Stop Dose Admin Sodium Chloride 1,000 mls @ 999 mls/hr 12/01/18 17:22 12/01/18 17:44 Normal Saline IV 12/01/18 18:22 999 mls/hr STAT ONE Administration Discontinued Medications Generic Name Dose Route Start Last Admin Trade Name Freq PRN Reason Stop Dose Admin Ondansetron HCl 4 mg 12/01/18 17:22 12/01/18 17:44 Zofran IVPUSH 12/01/18 17:23 4 mg ONETIME ONE Administration Departure - Departure Time of Disposition: 17:48 Disposition: Home, Self-Care 01 Condition: Good Clinical Impression: Abdominal pain, Pancreatitis - Discharge Information Referrals: PCP,None [Primary Care Provider] -
[2018-12-01 17:57] LABS: CHLORIDE,CL 98 mmol/L (98-107); SODIUM,NA 135 mmol/L (136-148)
[2018-12-01] MEDS ORDERED: Morphine 10 MG/ML Syringe IVPUSH PRN (18:44)
[2018-12-01] MEDS ORDERED: Ondansetron 4 MG Tab.DIS PO PRN (18:44)
[2018-12-01] MEDS ORDERED: Docusate Sodium 100 MG Cap PO PRN (18:44)
--- NOTE | 2018-12-01 19:14 | PCM.HP ---
H&P History of Present Illness - General Date of Service: 12/01/18 Admit Problem/Dx: Admission Diagnosis/Problem Admission Diagnosis/Problem Pancreatitis Source of Information: Patient History Limitations: Reports: No Limitations - History of Present Illness Initial Comments - Free Text/Narative: The patient is a 63-year-old gentleman who was discharged earlier today. He presented back to the emergency department with a complaint of nausea and vomiting. The patient says that he had not been consuming alcohol. Patient was readmitted secondary to increasing abdominal pain as well as intractable nausea and vomiting. Patient's history is essentially unchanged at this time. Onset of Symptoms: Reports: Gradual Duration of Symptoms: Reports: Getting Worse Location: Reports: Abdomen Quality: Reports: Stabbing, Throbbing Severity: Moderate Improves with: Reports: Medication Worsens with: Reports: Eating Associated Symptoms: Reports: No Other Symptoms Generalized Pain Score (Numeric/FACES): 10 - Related Data Allergies/Adverse Reactions: Allergies Allergy/AdvReac Type Severity Reaction Status Date / Time No Known Allergies Allergy Verified 12/01/18 19:01 Home Medications: Home Meds . [No Known Home Meds] 05/03/18 [History] Past Medical History - Past Health History Medical/Surgical History: Denies Medical/Surgical History HEENT History: Reports: None Cardiovascular History: Reports: High Cholesterol, Hypertension Respiratory History: Reports: None Gastrointestinal History: Reports: GI Bleed Genitourinary History: Reports: None Musculoskeletal History: Reports: None Neurological History: Reports: None Psychiatric History: Reports: None Endocrine/Metabolic History: Reports: None Hematologic History: Reports: None Immunologic History: Reports: None Oncologic (Cancer) History: Reports: None Dermatologic History: Reports: None - Infectious Disease History Infectious Disease History: Reports: None - Past Surgical History GI Surgical History: Reports: EGD Social & Family History - Family History Family Medical History: Noncontributory - Tobacco Use Smoking Status *Q: Current Every Day Smoker Years of Tobacco use: 40 Packs/Tins Daily: 0.2 - Caffeine Use Caffeine Use: Reports: None - Alcohol Use Days Per Week of Alcohol Use: 4 Number of Drinks Per Day: 4 Total Drinks Per Week: 16 - Recreational Drug Use Recreational Drug Use: No H&P Review of Systems - Review of Systems: Review Of Systems: ROS reveals no pertinent complaints other than HPI. Free Text/Narrative: Unchanged. Exam - Exam Exam: See Below - Vital Signs Vital Signs: Last Vital Signs Temp 36.7 C 12/01/18 18:44 Pulse 74 12/01/18 18:44 Resp 17 12/01/18 18:44 BP 169/104 H 12/01/18 18:44 Pulse Ox 99 12/01/18 18:44 Weight: 62.596 kg - Exam Quality Assessment: No: Supplemental Oxygen General: Alert, Oriented, Cooperative HEENT: Conjunctiva Clear, EACs Clear, EOMI, PERRLA. No: Mucosa Moist & [place] ( Dry) Neck: Supple, Trachea Midline Lungs: Clear to Auscultation, Normal Respiratory Effort Cardiovascular: Regular Rate, Regular Rhythm GI/Abdominal Exam: Normal Bowel Sounds, Soft (Epigastrium), No Distention, Tender. No: Guarding, Rigid, Rebound Back Exam: Normal Inspection, Full Range of Motion Extremities: Normal Inspection, Normal Range of Motion, No Pedal Edema Skin: Warm, Dry, Intact Neurological: Cranial Nerves Intact, Normal Gait Neuro Extensive - Mental Status: Alert, Oriented x3 Psychiatric: Alert, Normal Affect, Normal Mood - Patient Data Lab Results Last 24 hrs: Laboratory Results - last 24 hr 12/01/18 12/01/18 Range/Units 17:29 17:29 WBC 10.91 (4.0-11.0) K/uL RBC 3.92 L (4.50-5.90) M/uL Hgb 13.2 (13.0-17.0) g/dL Hct 36.5 L (38.0-50.0) % MCV 93.1 (80.0-98.0) fL MCH 33.7 H (27.0-32.0) pg MCHC 36.2 (31.0-37.0) g/dL RDW Std Deviation 48.0 (28.0-62.0) fl RDW Coeff of Stephane 14 (11.0-15.0) % Plt Count 76 L (150-400) K/uL MPV 11.80 (7.40-12.00) fL Neut % (Auto) 78.3 (48.0-80.0) % Lymph % (Auto) 5.2 L (16.0-40.0) % [place] % (Auto) 16.5 H (0.0-15.0) % Eos % (Auto) 0.0 (0.0-7.0) % Baso % (Auto) 0.0 (0.0-1.5) % Neut # (Auto) 8.5 H (1.4-5.7) K/uL Lymph # (Auto) 0.6 (0.6-2.4) K/uL [place] # (Auto) 1.8 H (0.0-0.8) K/uL Eos # (Auto) 0.0 (0.0-0.7) K/uL Baso # (Auto) 0.0 (0.0-0.1) K/uL Nucleated RBC % 0.0 /100WBC Nucleated RBCs # 0 K/uL Sodium 135 L (136-148) mmol/L Potassium 3.2 L (3.5-5.1) mmol/L Chloride 98 (98-107) mmol/L Carbon Dioxide 19.8 L (21.0-32.0) mmol/L BUN 5 L (7.0-18.0) mg/dL Creatinine 0.8 (0.8-1.3) mg/dL Est Cr Clr Drug Dosing TNP Estimated GFR (MDRD) > 60.0 ml/min Glucose 204 H (74-106) mg/dL Calcium 9.7 (8.5-10.1) mg/dL Total Bilirubin 1.5 H (0.2-1.0) mg/dL AST 111 H (15-37) IU/L ALT 46 (14-63) IU/L Alkaline Phosphatase 121 H (46-116) U/L Total Protein 8.4 H (6.4-8.2) g/dL Albumin 3.8 (3.4-5.0) g/dL Globulin 4.6 H (2.6-4.0) g/dL Albumin/Globulin Ratio 0.8 L (0.9-1.6) Lipase 1538 H (73-393) U/L Result Diagrams: 12/02/18 05:10 12/02/18 05:10 *Q Meaningful Use (ADM) - VTE *Q VTE Pharmacological Contraindications *Q: Risk of Bleeding - Problem List (1) Pancreatitis SNOMED Code(s): 83860390 ICD Code: K85.90 - ACUTE PANCREATITIS WITHOUT NECROSIS OR INFECTION, UNSP Status: Acute Priority: High Current Visit: Yes Qualifiers: Pancreatitis type: alcohol induced (2) Alcohol use SNOMED Code(s): 453218 ICD Code: Z72.89 - OTHER PROBLEMS RELATED TO LIFESTYLE Status: Chronic Priority: High Current Visit: Yes (3) Thrombocytopenia SNOMED Code(s): 908015759 ICD Code: D69.6 - THROMBOCYTOPENIA, UNSPECIFIED Status: Chronic Priority : High Current Visit: Yes Problem List Initiated/Reviewed/Updated: Yes Orders Last 24hrs: Active Orders 24 hr Category Date Time Status Patient Status [ADT] Stat ADT 12/01/18 17:49 Active Antiembolic Devices [RC] PER UNIT ROUTINE Care 12/01/18 18:45 Active Oxygen Therapy [RC] PRN Care 12/01/18 18:44 Active Up ad Kelsey [RC] ASDIRECTED Care 12/01/18 18:44 Active VTE/DVT Education [RC] PER UNIT ROUTINE Care 12/01/18 18:44 Active Vital Signs [RC] Q4H Care 12/01/18 18:44 Active Nothing per Oral Now Diet [DIET] Diet 12/01/18 Breakfast Active Chest 1V Frontal [CR] Stat Exams 12/01/18 17:49 Ordered CBC WITH AUTO DIFF [HEME] AM Lab 12/02/18 05:11 Ordered COMPREHENSIVE METABOLIC PN,CMP [CHEM] AM Lab 12/02/18 05:11 Ordered LIPASE [CHEM] AM Lab 12/02/18 05:11 Ordered UA RFX LEO AND CULT IF INDIC [URIN] Stat Lab 12/01/18 17:15 Ordered Docusate Sodium [Colace] Med 12/01/18 18:44 Active 100 mg PO BID PRN Morphine Med 12/01/18 18:44 Active 2 mg IVPUSH Q2H PRN Ondansetron [Zofran ODT] Med 12/01/18 18:44 Active 4 mg PO Q6H PRN Sodium Chloride 0.9% [Normal Saline] 1,000 ml Med 12/01/18 18:45 Active IV ASDIRECTED Temazepam [Restoril] Med 12/01/18 18:44 Active 15 mg PO BEDTIME PRN oxyCODONE Med 12/01/18 18:44 Active 5 mg PO Q4H PRN Sequential Compression Device [OM.PC] Per Unit Routine Oth 12/01/18 18:45 Ordered VTE Pharmacological Contraindications [AST] Per Unit Oth 12/01/18 18:44 Ordered Routine Resuscitation Status Routine Resus Stat 12/01/18 18:44 Ordered Medication Orders Docusate Sodium (Colace) 100 mg PO BID PRN PRN Reason: Constipation Sodium Chloride (Normal Saline) 1,000 mls @ 125 mls/hr IV ASDIRECTED MARCEL Morphine Sulfate (Morphine) 2 mg IVPUSH Q2H PRN PRN Reason: Pain (severe 7-10) Stop: 12/02/18 18:45 Ondansetron HCl (Zofran Odt) 4 mg PO Q6H PRN PRN Reason: nausea, able to take PO Oxycodone HCl (Oxycodone) 5 mg PO Q4H PRN PRN Reason: Pain (moderate 4-6) Temazepam (Restoril) 15 mg PO BEDTIME PRN PRN Reason: Sleep Assessment/Plan Comment:: The patient is a 63-year-old gentleman who is been admitted secondary to pancreatitis as well as abdominal pain. The patient will be aggressively hydrated. He'll be kept nothing by mouth secondary to his intractable nausea and vomiting. The patient says that his primary language is [place]ian, however, he does speak with heavily accented Gambian. I am not entirely certain that the patient understood the discharge instructions from previous admission. Also, I believe that the patient was not gently forthcoming with his use of alcohol. There is no indication of alcohol use after initial discharge. Regardless the patient will be treated acute pancreatitis and it's noted that the patient's lipase is had 829 units per liter. I've ordered repeat laboratory studies for the morning. He's been encouraged to ambulate. We'll continue with DVT prophylaxis with the use of Lovenox.
--- NOTE | 2018-12-01 19:43 | CR ---
HISTORY: Chest pain and shortness of breath. FINDINGS: Single AP view of the chest is provided. The lungs are clear and there is no evidence for pleural effusion or pneumothorax. Cardiac silhouette size is within normal limits. Dictated by Nicholas Fonseca MD @ Dec 01 2018 7:41PM Signed by Dr. Nicholas Fonseca @ Dec 01 2018 7:42PM
[2018-12-01] MEDS: Sodium Chloride 0.9% 1,000 ML IV SCH (19:45)
[2018-12-01] MEDS: oxyCODONE 5 MG Tab PO PRN (19:46)
[2018-12-01] MEDS: Temazepam 15 MG Cap PO PRN (22:45)
[2018-12-02] MEDS: oxyCODONE 5 MG Tab PO PRN ×2 (00:52→08:01)
[2018-12-02] MEDS: Sodium Chloride 0.9% 1,000 ML IV SCH ×4 (03:58→21:05)
[2018-12-02 05:53] LABS: CHLORIDE,CL 99 mmol/L (98-107); SODIUM,NA 137 mmol/L (136-148)
[2018-12-02] MEDS ORDERED: Morphine 2 MG/ML Syringe IVPUSH PRN (07:36)
[2018-12-02] MEDS ORDERED: LORazepam 2 MG/ML SDV IVPUSH PRN (08:26)
[2018-12-02] MEDS ORDERED: Ondansetron 4 MG/2 ML SDV IVPUSH PRN (08:27)
--- NOTE | 2018-12-02 08:29 | PCM.PN ---
<Tonya Ryan M - Last Filed: 12/02/18 10:26> - General Info Date of Service: 12/02/18 Admission Dx/Problem (Free Text): Admission Diagnosis/Problem Admission Diagnosis/Problem Pancreatitis Subjective Update: reports feeling ok this morning. No abdominal pain, reports some heartburn. and mild nausea Functional Status: Reports: Pain Controlled, Ambulating, Urinating. Denies: Tolerating Diet - Review of Systems General: Reports: No Symptoms. Denies: Weakness, Fatigue, Malaise Pulmonary: Reports: No Symptoms. Denies: Shortness of Breath Cardiovascular: Reports: No Symptoms. Denies: Chest Pain Gastrointestinal: Reports: Constipation (last BM 5 days ago), Flatus, Nausea. Denies: Abdominal Pain, Vomiting Genitourinary: Reports: No Symptoms. Denies: Dysuria, Frequency, Burning Musculoskeletal: Reports: No Symptoms Skin: Reports: No Symptoms Neurological: Reports: No Symptoms. Denies: Tremors, Weakness Psychiatric: Reports: No Symptoms - Patient Data Vitals - Most Recent: Last Vital Signs Temp 97.7 F 12/02/18 07:55 Pulse 104 H 12/02/18 07:55 Resp 18 12/02/18 07:55 BP 148/100 H 12/02/18 07:55 Pulse Ox 98 12/02/18 07:55 Weight - Most Recent: 62.596 kg I&O - Last 24 Hours: Intake & Output 12/01/18 12/02/18 12/02/18 22:59 06:59 14:59 Intake Total 1000 Output Total 700 Balance 300 Lab Results Last 24 Hours: Laboratory Results - last 24 hr 12/01/18 12/01/18 12/01/18 Range/Units 17:29 17:29 21:00 WBC 10.91 (4.0-11.0) K/uL RBC 3.92 L (4.50-5.90) M/uL Hgb 13.2 (13.0-17.0) g/dL Hct 36.5 L (38.0-50.0) % MCV 93.1 (80.0-98.0) fL MCH 33.7 H (27.0-32.0) pg MCHC 36.2 (31.0-37.0) g/dL RDW Std Deviation 48.0 (28.0-62.0) fl RDW Coeff of Stephane 14 (11.0-15.0) % Plt Count 76 L (150-400) K/uL MPV 11.80 (7.40-12.00) fL Neut % (Auto) 78.3 (48.0-80.0) % Lymph % (Auto) 5.2 L (16.0-40.0) % [place] % (Auto) 16.5 H (0.0-15.0) % Eos % (Auto) 0.0 (0.0-7.0) % Baso % (Auto) 0.0 (0.0-1.5) % Neut # (Auto) 8.5 H (1.4-5.7) K/uL Lymph # (Auto) 0.6 (0.6-2.4) K/uL [place] # (Auto) 1.8 H (0.0-0.8) K/uL Eos # (Auto) 0.0 (0.0-0.7) K/uL Baso # (Auto) 0.0 (0.0-0.1) K/uL Nucleated RBC % 0.0 /100WBC Nucleated RBCs # 0 K/uL Sodium 135 L (136-148) mmol/L Potassium 3.2 L (3.5-5.1) mmol/L Chloride 98 (98-107) mmol/L Carbon Dioxide 19.8 L (21.0-32.0) mmol/L BUN 5 L (7.0-18.0) mg/dL Creatinine 0.8 (0.8-1.3) mg/dL Est Cr Clr Drug Dosing TNP Estimated GFR (MDRD) > 60.0 ml/min Glucose 204 H (74-106) mg/dL Calcium 9.7 (8.5-10.1) mg/dL Total Bilirubin 1.5 H (0.2-1.0) mg/dL AST 111 H (15-37) IU/L ALT 46 (14-63) IU/L Alkaline Phosphatase 121 H (46-116) U/L Total Protein 8.4 H (6.4-8.2) g/dL Albumin 3.8 (3.4-5.0) g/dL Globulin 4.6 H (2.6-4.0) g/dL Albumin/Globulin Ratio 0.8 L (0.9-1.6) Lipase 1538 H (73-393) U/L Urine Color YELLOW Urine Appearance CLEAR Urine pH 6.0 (5.0-8.0) Ur Specific [place] 1.025 (1.001-1.035) Urine Protein 30 H (NEGATIVE) mg/dL Urine Glucose (UA) 100 H (NEGATIVE) mg/dL Urine Ketones 40 H (NEGATIVE) mg/dL Urine Occult Blood SMALL H (NEGATIVE) Urine Nitrite NEGATIVE (NEGATIVE) Urine Bilirubin SMALL H (NEGATIVE) Urine Ictotest NEGATIVE Urine Urobilinogen 1.0 (<2.0) EU/dL Ur Leukocyte Esterase NEGATIVE (NEGATIVE) Urine RBC 0-2 (0-2/HPF) Urine WBC 0-1 (0-5/HPF) Ur Epithelial Cells RARE (NONE-FEW) Urine Bacteria FEW (NEGATIVE) Urine Mucus LIGHT (NONE-MOD) 12/02/18 12/02/18 Range/Units 05:10 05:10 WBC 11.22 H (4.0-11.0) K/uL RBC 3.97 L (4.50-5.90) M/uL Hgb 13.1 (13.0-17.0) g/dL Hct 37.0 L (38.0-50.0) % MCV 93.2 (80.0-98.0) fL MCH 33.0 H (27.0-32.0) pg MCHC 35.4 (31.0-37.0) g/dL RDW Std Deviation 47.2 (28.0-62.0) fl RDW Coeff of Stephane 14 (11.0-15.0) % Plt Count 108 L (150-400) K/uL MPV 12.70 H (7.40-12.00) fL Neut % (Auto) 76.5 (48.0-80.0) % Lymph % (Auto) 7.9 L (16.0-40.0) % [place] % (Auto) 15.5 H (0.0-15.0) % Eos % (Auto) 0.0 (0.0-7.0) % Baso % (Auto) 0.1 (0.0-1.5) % Neut # (Auto) 8.6 H (1.4-5.7) K/uL Lymph # (Auto) 0.9 (0.6-2.4) K/uL [place] # (Auto) 1.7 H (0.0-0.8) K/uL Eos # (Auto) 0.0 (0.0-0.7) K/uL Baso # (Auto) 0.0 (0.0-0.1) K/uL Nucleated RBC % 0.3 /100WBC Nucleated RBCs # 0 K/uL Sodium 137 (136-148) mmol/L Potassium 2.6 L (3.5-5.1) mmol/L Chloride 99 (98-107) mmol/L Carbon Dioxide 22.7 (21.0-32.0) mmol/L BUN 4 L (7.0-18.0) mg/dL Creatinine 0.6 L (0.8-1.3) mg/dL Est Cr Clr Drug Dosing 110.12 Estimated GFR (MDRD) > 60.0 ml/min Glucose 153 H (74-106) mg/dL Calcium 8.8 (8.5-10.1) mg/dL Total Bilirubin 1.2 H (0.2-1.0) mg/dL AST 89 H (15-37) IU/L ALT 41 (14-63) IU/L Alkaline Phosphatase 110 (46-116) U/L Total Protein 7.4 (6.4-8.2) g/dL Albumin 3.2 L (3.4-5.0) g/dL Globulin 4.2 H (2.6-4.0) g/dL Albumin/Globulin Ratio 0.8 L (0.9-1.6) Lipase 829 H (73-393) U/L Urine Color Urine Appearance Urine pH (5.0-8.0) Ur Specific [place] (1.001-1.035) Urine Protein (NEGATIVE) mg/dL Urine Glucose (UA) (NEGATIVE) mg/dL Urine Ketones (NEGATIVE) mg/dL Urine Occult Blood (NEGATIVE) Urine Nitrite (NEGATIVE) Urine Bilirubin (NEGATIVE) Urine Ictotest Urine Urobilinogen (<2.0) EU/dL Ur Leukocyte Esterase (NEGATIVE) Urine RBC (0-2/HPF) Urine WBC (0-5/HPF) Ur Epithelial Cells (NONE-FEW) Urine Bacteria (NEGATIVE) Urine Mucus (NONE-MOD) Med Orders - Current: Current Medications Docusate Sodium (Colace) 100 mg PO BID PRN PRN Reason: Constipation Folic Acid (Folic Acid) 1 mg SUBCUT DAILY [facility] Sodium Chloride (Normal Saline) 1,000 mls @ 999 mls/hr IV ASDIRECTED [facility]ARCEL Stop: 12/03/18 09:31 Potassium Chloride/Sodium Chloride (Normal Saline With 40 Meq Kcl) 1,000 mls @ 175 mls/hr IV ASDIRECTED [facility]ARCEL Stop: 12/02/18 14:13 Lorazepam (Ativan) 0 mg IVPUSH Q4H PRN; Protocol PRN Reason: CIWAA Morphine Sulfate (Morphine) 2 mg IVPUSH Q2H PRN PRN Reason: Pain (severe 7-10) Stop: 12/02/18 18:45 Ondansetron HCl (Zofran) 4 mg IVPUSH Q4H PRN PRN Reason: Nausea Oxycodone HCl (Oxycodone) 5 mg PO Q4H PRN PRN Reason: Pain (moderate 4-6) Last Admin: 12/02/18 08:01 Dose: 5 mg Temazepam (Restoril) 15 mg PO BEDTIME PRN PRN Reason: Sleep Last Admin: 12/01/18 22:45 Dose: 15 mg Thiamine HCl (Vitamin B-1) 100 mg IV DAILY [facility] Discontinued Medications Sodium Chloride (Normal Saline) 1,000 mls @ 999 mls/hr IV STAT ONE Stop: 12/01/18 18:22 Last Admin: 12/01/18 17:44 Dose: 999 mls/hr Sodium Chloride (Normal Saline) 1,000 mls @ 125 mls/hr IV ASDIRECTED [facility]ARCEL Last Admin: 12/02/18 03:58 Dose: 125 mls/hr Morphine Sulfate (Morphine) 2 mg IVPUSH Q2H PRN PRN Reason: Pain (severe 7-10) Stop: 12/02/18 18:45 Ondansetron HCl (Zofran) 4 mg IVPUSH ONETIME ONE Stop: 12/01/18 17:23 Last Admin: 12/01/18 17:44 Dose: 4 mg Ondansetron HCl (Zofran Odt) 4 mg PO Q6H PRN PRN Reason: nausea, able to take PO - Exam General: Alert, Oriented, Cooperative, No Acute Distress Lungs: Clear to Auscultation, Normal Respiratory Effort Cardiovascular: Regular Rhythm, Tachycardia GI/Abdominal Exam: Normal Bowel Sounds, Soft, Non-Tender. No: Distended Extremities: Normal Inspection, Normal Range of Motion, Non-Tender, No Pedal Edema Wound/Incisions: Healing Well Neurological: No New Focal Deficit Psy/Mental Status: Alert, Normal Affect, Normal Mood. No: Withdrawal Symptoms - Problem List & Annotations (1) Pancreatitis SNOMED Code(s): 06981209 Code(s): K85.90 - ACUTE PANCREATITIS WITHOUT NECROSIS OR INFECTION, UNSP Status: Acute Priority: High Current Visit: Yes Qualifiers: Pancreatitis type: alcohol induced (2) Hypokalemia SNOMED Code(s): 76644529 Code(s): E87.6 - HYPOKALEMIA Status: Acute Current Visit: Yes (3) Hypomagnesemia SNOMED Code(s): 899610528 Code(s): E83.42 - HYPOMAGNESEMIA Status: Acute Current Visit: Yes (4) Elevated liver enzymes SNOMED Code(s): 672778899 Code(s): R74.8 - ABNORMAL LEVELS OF OTHER SERUM ENZYMES Status: Acute Current Visit: No (5) Alcohol use SNOMED Code(s): 174809 Code(s): Z72.89 - OTHER PROBLEMS RELATED TO LIFESTYLE Status: Chronic Priority: High Current Visit: Yes (6) Thrombocytopenia SNOMED Code(s): 630953512 Code(s): D69.6 - THROMBOCYTOPENIA, UNSPECIFIED Status: Chronic Priority: High Current Visit: Yes - Problem List Review Problem List Initiated/Reviewed/Updated: Yes - My Orders Last 24 Hours: My Active Orders 12/02/18 08:24 Abdomen Ltd [US] Urgent LIPID PANEL [CHEM] Routine MAGNESIUM [CHEM] Routine 12/02/18 08:26 LORazepam [Ativan] See Protocol IVPUSH Q4H PRN 12/02/18 08:27 Ondansetron [Zofran] 4 mg IVPUSH Q4H PRN 12/02/18 08:28 Telemetry Monitoring [Cardiac Monitoring] [RC] . DIRECTED 12/02/18 08:30 Sodium Chloride 0.9% [Normal Saline] 1,000 ml IV ASDIRECTED Sodium Chloride 0.9% with KCl [Normal Saline with 40 mEq KCl] 1,000 ml IV ASDIRECTED 12/02/18 09:00 Folic Acid 1 mg SUBCUT DAILY Thiamine [Vitamin B-1] 100 mg IV DAILY - Plan Plan:: This 63 year old male admitted with acute alcohol induced pancreatitis 1. Alcohol induced pancreatitis: Reports he went home yesterday, didn't drink and didn't eat much. The pain and nausea returned and to the point he couldn't bear at home. He reports he drinks 1 liter of vodka in approximately 2-3 days. He denies withdrawal symptoms like tremors or seizures when he stops drinking. He was educated on sobriety, appears to not be very receptive on this topic. Will continue to stress sobriety. Will give 2 L bolus now followed by NS 175 with 40 KCL x 1 bag. Continue IV fluids at NS 200 once potassium is supplemented. Pain and nausea medication PRN. RUQ US reveals sludge in gallbladder, but no cholelithiasis or dilation of biliary ducts. Pancrease mildly heterogeneous consistent with pancreatitis. Triglycerides 93. Continue bowel rest now. 2. Hypokalemia: Place on telemetry. Supplement with 40 mew IV and PO. Recheck Potassium this afternoon 3. Hypomagnesemia: Supplement with 4 gm IV today and recheck this afternoon 4. Alcohol abuse: Likely in withdrawal currently with elevated BP and HR. Telemetry reports HR in excess of 160s, ST. Obtain stat EKG, give Lopressor and start Ativan Protocol via CIWAA assessment. Supplement with Thiamine and folic acid daily. Again highly encouraged sobriety. 5. Thrombocytopenia: Likely alcohol induced. Will monitor. Hold off on pharmacologic VTE prophylaxis due to high risk of bleeding. VTE prophylaxis: SCDs due to high risk of bleeding Dispo: 1-2 days pending improvement. <Kristian Shen - Last Filed: 12/02/18 13:04> - General Info Admission Dx/Problem (Free Text): I have examined the patient independently of Tonya Ryan CNP. I have discussed the case with her. I have reviewed and agree with the examination and plan as outlined by her. Please see orders. - Patient Data Vitals - Most Recent: Last Vital Signs Temp 36.5 C 12/02/18 08:00 Pulse 104 H 12/02/18 08:00 Resp 18 12/02/18 08:00 BP 148/100 H 12/02/18 08:00 Pulse Ox 98 12/02/18 08:00 I&O - Last 24 Hours: Intake & Output 12/01/18 12/02/18 12/02/18 22:59 06:59 14:59 Intake Total 1000 2009 Output Total 700 Balance 300 2009 Lab Results Last 24 Hours: Laboratory Results - last 24 hr 12/01/18 12/01/18 12/01/18 Range/Units 17:29 17:29 21:00 WBC 10.91 (4.0-11.0) K/uL RBC 3.92 L (4.50-5.90) M/uL Hgb 13.2 (13.0-17.0) g/dL Hct 36.5 L (38.0-50.0) % MCV 93.1 (80.0-98.0) fL MCH 33.7 H (27.0-32.0) pg MCHC 36.2 (31.0-37.0) g/dL RDW Std Deviation 48.0 (28.0-62.0) fl RDW Coeff of Stephane 14 (11.0-15.0) % Plt Count 76 L (150-400) K/uL MPV 11.80 (7.40-12.00) fL Neut % (Auto) 78.3 (48.0-80.0) % Lymph % (Auto) 5.2 L (16.0-40.0) % [place] % (Auto) 16.5 H (0.0-15.0) % Eos % (Auto) 0.0 (0.0-7.0) % Baso % (Auto) 0.0 (0.0-1.5) % Neut # (Auto) 8.5 H (1.4-5.7) K/uL Lymph # (Auto) 0.6 (0.6-2.4) K/uL [place] # (Auto) 1.8 H (0.0-0.8) K/uL Eos # (Auto) 0.0 (0.0-0.7) K/uL Baso # (Auto) 0.0 (0.0-0.1) K/uL Nucleated RBC % 0.0 /100WBC Nucleated RBCs # 0 K/uL Sodium 135 L (136-148) mmol/L Potassium 3.2 L (3.5-5.1) mmol/L Chloride 98 (98-107) mmol/L Carbon Dioxide 19.8 L (21.0-32.0) mmol/L BUN 5 L (7.0-18.0) mg/dL Creatinine 0.8 (0.8-1.3) mg/dL Est Cr Clr Drug Dosing TNP Estimated GFR (MDRD) > 60.0 ml/min Glucose 204 H (74-106) mg/dL Calcium 9.7 (8.5-10.1) mg/dL Magnesium (1.8-2.4) mg/dL Total Bilirubin 1.5 H (0.2-1.0) mg/dL AST 111 H (15-37) IU/L ALT 46 (14-63) IU/L Alkaline Phosphatase 121 H (46-116) U/L Total Protein 8.4 H (6.4-8.2) g/dL Albumin 3.8 (3.4-5.0) g/dL Globulin 4.6 H (2.6-4.0) g/dL Albumin/Globulin Ratio 0.8 L (0.9-1.6) Triglycerides (0-200) mg/dL Cholesterol (50-200) mg/dL LDL Cholesterol, Calc (60-180) mg/dL VLDL Cholesterol (5-55) mg/dL HDL Cholesterol (40-60) mg/dL Cholesterol/HDL Ratio (3.3-6.0) Lipase 1538 H (73-393) U/L Urine Color YELLOW Urine Appearance CLEAR Urine pH 6.0 (5.0-8.0) Ur Specific [place] 1.025 (1.001-1.035) Urine Protein 30 H (NEGATIVE) mg/dL Urine Glucose (UA) 100 H (NEGATIVE) mg/dL Urine Ketones 40 H (NEGATIVE) mg/dL Urine Occult Blood SMALL H (NEGATIVE) Urine Nitrite NEGATIVE (NEGATIVE) Urine Bilirubin SMALL H (NEGATIVE) Urine Ictotest NEGATIVE Urine Urobilinogen 1.0 (<2.0) EU/dL Ur Leukocyte Esterase NEGATIVE (NEGATIVE) Urine RBC 0-2 (0-2/HPF) Urine WBC 0-1 (0-5/HPF) Ur Epithelial Cells RARE (NONE-FEW) Urine Bacteria FEW (NEGATIVE) Urine Mucus LIGHT (NONE-MOD) 07/24/19 07/24/19 07/24/19 Range/Units 05:10 05:10 05:10 WBC 11.22 H (4.0-11.0) K/uL RBC 3.97 L (4.50-5.90) M/uL Hgb 13.1 (13.0-17.0) g/dL Hct 37.0 L (38.0-50.0) % MCV 93.2 (80.0-98.0) fL MCH 33.0 H (27.0-32.0) pg MCHC 35.4 (31.0-37.0) g/dL RDW Std Deviation 47.2 (28.0-62.0) fl RDW Coeff of Stephane 14 (11.0-15.0) % Plt Count 108 L (150-400) K/uL MPV 12.70 H (7.40-12.00) fL Neut % (Auto) 76.5 (48.0-80.0) % Lymph % (Auto) 7.9 L (16.0-40.0) % [place] % (Auto) 15.5 H (0.0-15.0) % Eos % (Auto) 0.0 (0.0-7.0) % Baso % (Auto) 0.1 (0.0-1.5) % Neut # (Auto) 8.6 H (1.4-5.7) K/uL Lymph # (Auto) 0.9 (0.6-2.4) K/uL [place] # (Auto) 1.7 H (0.0-0.8) K/uL Eos # (Auto) 0.0 (0.0-0.7) K/uL Baso # (Auto) 0.0 (0.0-0.1) K/uL Nucleated RBC % 0.3 /100WBC Nucleated RBCs # 0 K/uL Sodium 137 (136-148) mmol/L Potassium 2.6 L (3.5-5.1) mmol/L Chloride 99 (98-107) mmol/L Carbon Dioxide 22.7 (21.0-32.0) mmol/L BUN 4 L (7.0-18.0) mg/dL Creatinine 0.6 L (0.8-1.3) mg/dL Est Cr Clr Drug Dosing 110.12 Estimated GFR (MDRD) > 60.0 ml/min Glucose 153 H (74-106) mg/dL Calcium 8.8 (8.5-10.1) mg/dL Magnesium 1.1 L (1.8-2.4) mg/dL Total Bilirubin 1.2 H (0.2-1.0) mg/dL AST 89 H (15-37) IU/L ALT 41 (14-63) IU/L Alkaline Phosphatase 110 (46-116) U/L Total Protein 7.4 (6.4-8.2) g/dL Albumin 3.2 L (3.4-5.0) g/dL Globulin 4.2 H (2.6-4.0) g/dL Albumin/Globulin Ratio 0.8 L (0.9-1.6) Triglycerides 93 (0-200) mg/dL Cholesterol 206 H (50-200) mg/dL LDL Cholesterol, Calc 77 (60-180) mg/dL VLDL Cholesterol 18 (5-55) mg/dL HDL Cholesterol 110 H (40-60) mg/dL Cholesterol/HDL Ratio 1.9 L (3.3-6.0) Lipase 829 H (73-393) U/L Urine Color Urine Appearance Urine pH (5.0-8.0) Ur Specific [place] (1.001-1.035) Urine Protein (NEGATIVE) mg/dL Urine Glucose (UA) (NEGATIVE) mg/dL Urine Ketones (NEGATIVE) mg/dL Urine Occult Blood (NEGATIVE) Urine Nitrite (NEGATIVE) Urine Bilirubin (NEGATIVE) Urine Ictotest Urine Urobilinogen (<2.0) EU/dL Ur Leukocyte Esterase (NEGATIVE) Urine RBC (0-2/HPF) Urine WBC (0-5/HPF) Ur Epithelial Cells (NONE-FEW) Urine Bacteria (NEGATIVE) Urine Mucus (NONE-MOD) Med Orders - Current: Current Medications Docusate Sodium (Colace) 100 mg PO BID PRN PRN Reason: Constipation Folic Acid (Folic Acid) 1 mg SUBCUT DAILY [facility] Last Admin: 12/02/18 09:44 Dose: 1 mg Sodium Chloride (Normal Saline) 1,000 mls @ 999 mls/hr IV ASDIRECTED [facility] Stop: 12/03/18 09:31 Last Admin: 12/02/18 11:04 Dose: 999 mls/hr Potassium Chloride/Sodium Chloride (Normal Saline With 40 Meq Kcl) 1,000 mls @ 175 mls/hr IV ASDIRECTED [facility] Stop: 12/02/18 14:13 Pantoprazole Sodium 40 mg/ (Sodium Chloride) 10 mls @ 300 mls/hr IVPUSH Q24H [facility] Last Admin: 12/02/18 10:54 Dose: 300 mls/hr Lorazepam (Ativan) 0 mg IVPUSH Q4H PRN; Protocol PRN Reason: CIWAA Last Admin: 12/02/18 10:55 Dose: 2 mg Metoprolol Tartrate (Lopressor) 5 mg IVPUSH Q4H PRN PRN Reason: HR over 120 Morphine Sulfate (Morphine) 2 mg IVPUSH Q2H PRN PRN Reason: Pain (severe 7-10) Stop: 12/02/18 18:45 Ondansetron HCl (Zofran) 4 mg IVPUSH Q4H PRN PRN Reason: Nausea Oxycodone HCl (Oxycodone) 5 mg PO Q4H PRN PRN Reason: Pain (moderate 4-6) Last Admin: 12/02/18 08:01 Dose: 5 mg Temazepam (Restoril) 15 mg PO BEDTIME PRN PRN Reason: Sleep Last Admin: 12/01/18 22:45 Dose: 15 mg Thiamine HCl (Vitamin B-1) 100 mg IV DAILY [facility] Last Admin: 12/02/18 09:46 Dose: 100 mg Discontinued Medications Sodium Chloride (Normal Saline) 1,000 mls @ 999 mls/hr IV STAT ONE Stop: 12/01/18 18:22 Last Admin: 12/01/18 17:44 Dose: 999 mls/hr Sodium Chloride (Normal Saline) 1,000 mls @ 125 mls/hr IV ASDIRECTED [facility] Last Admin: 12/02/18 03:58 Dose: 125 mls/hr Magnesium Sulfate 4 gm/ Premix 100 mls @ 50 mls/hr IV ONETIME ONE Stop: 12/02/18 12:09 Last Admin: 12/02/18 12:07 Dose: 50 mls/hr Morphine Sulfate (Morphine) 2 mg IVPUSH Q2H PRN PRN Reason: Pain (severe 7-10) Stop: 12/02/18 18:45 Ondansetron HCl (Zofran) 4 mg IVPUSH ONETIME ONE Stop: 12/01/18 17:23 Last Admin: 12/01/18 17:44 Dose: 4 mg Ondansetron HCl (Zofran Odt) 4 mg PO Q6H PRN PRN Reason: nausea, able to take PO Potassium Chloride (Klor-Con M20) 40 meq PO ONETIME ONE Stop: 12/02/18 10:13 Last Admin: 12/02/18 10:54 Dose: 40 meq - Problem List & Annotations (1) Pancreatitis SNOMED Code(s): 06180356 Code(s): K85.90 - ACUTE PANCREATITIS WITHOUT NECROSIS OR INFECTION, UNSP Status: Acute Priority: High Current Visit: Yes Qualifiers: Pancreatitis type: alcohol induced (2) Alcohol use SNOMED Code(s): 523534 Code(s): Z72.89 - OTHER PROBLEMS RELATED TO LIFESTYLE Status: Chronic Priority: High Current Visit: Yes (3) Thrombocytopenia SNOMED Code(s): 932267467 Code(s): D69.6 - THROMBOCYTOPENIA, UNSPECIFIED Status: Chronic Priority: High Current Visit: Yes - My Orders Last 24 Hours: My Active Orders 12/01/18 18:44 Oxygen Therapy [RC] PRN Up ad Kelsey [RC] ASDIRECTED VTE/DVT Education [RC] PER UNIT ROUTINE Vital Signs [RC] Q4H Docusate Sodium [Colace] 100 mg PO BID PRN Temazepam [Restoril] 15 mg PO BEDTIME PRN oxyCODONE 5 mg PO Q4H PRN VTE Pharmacological Contraindications [AST] Per Unit Routine Resuscitation Status Routine 12/01/18 18:45 Antiembolic Devices [RC] PER UNIT ROUTINE Sequential Compression Device [OM.PC] Per Unit Routine 12/02/18 07:36 Morphine 2 mg IVPUSH Q2H PRN
[2018-12-02] MEDS ORDERED: Sodium Chloride 0.9% with KCl 1,000 ML IV SCH ×2 (08:30→14:45)
--- NOTE | 2018-12-02 09:39 | US ---
EXAMINATION: Right upper quadrant ultrasound HISTORY: Pancreatitis COMPARISON: CT dated 11/30/2018 TECHNIQUE: Grayscale and color Doppler imaging obtained. FINDINGS: The visualized aorta appears grossly normal. Pancreas appears mildly heterogeneous in echotexture. The liver is moderately increased in generalized echotexture without a focal hepatic mass. Common bile duct measures 5 mm. There is sludge within the gallbladder without a definitive shadowing stone. Gallbladder wall thickness is normal. No pericholecystic fluid. Right kidney measures 12.1 cm [id number]. IMPRESSION: 1. Sludge within the gallbladder without definite cholelithiasis. 2. Pancreas is mildly heterogeneous consistent with pancreatitis. 3. Moderate fatty infiltration of liver.
[2018-12-02] MEDS: Folic Acid 50 MG/10 ML MDV SUBCUT SCH (09:44)
[2018-12-02] MEDS: Thiamine 200 MG/2 ML MDV IV SCH (09:46)
[2018-12-02] MEDS ORDERED: Magnesium Sulfate/Water 4 GM in Premix Bag 1 BAG IV ONE (10:10)
[2018-12-02] MEDS ORDERED: Potassium Chloride 20 MEQ Tab.ER PO ONE ×2 (10:12→15:48)
[2018-12-02] MEDS ORDERED: Metoprolol Tartrate 5 MG/5 ML SDV IVPUSH PRN (10:24)
[2018-12-02] MEDS: Pantoprazole 40 MG in Sodium Chloride 0.9% 10 ML IVPUSH SCH (10:54)
[2018-12-03] MEDS: Temazepam 15 MG Cap PO PRN (02:36)
[2018-12-03] MEDS: Sodium Chloride 0.9% 1,000 ML IV SCH ×3 (02:36→21:47)
[2018-12-03 05:52] LABS: CHLORIDE,CL 102 mmol/L (98-107); SODIUM,NA 137 mmol/L (136-148)
[2018-12-03] MEDS ORDERED: Potassium Chloride 20 MEQ Tab.ER PO ONE (07:45)
[2018-12-03] MEDS ORDERED: Magnesium Sulfate 4 GM in Sodium Chloride 0.9% with KCl 1,000 ML IV SCH (08:15)
[2018-12-03] MEDS: Folic Acid 50 MG/10 ML MDV SUBCUT SCH (08:21)
[2018-12-03] MEDS: Thiamine 200 MG/2 ML MDV IV SCH (08:24)
--- NOTE | 2018-12-03 09:17 | PCM.PN ---
<Tonya Ryan M - Last Filed: 12/03/18 10:25> - General Info Date of Service: 12/03/18 Admission Dx/Problem (Free Text): Alcoholic pancreatitis Subjective Update: Sitting on the edge of the bed. Reports he is feeling much better. No abdominal or nausea. Burping. Reports he is very hungry and wants to eat. Denies chest pain or SOB. Functional Status: Reports: Pain Controlled, Ambulating, Urinating - Review of Systems General: Reports: No Symptoms. Denies: Weakness, Fatigue, Malaise HEENT: Reports: No Symptoms. Denies: Headaches, Sore Throat, Visual Changes Pulmonary: Reports: No Symptoms. Denies: Shortness of Breath Cardiovascular: Reports: No Symptoms. Denies: Chest Pain Gastrointestinal: Reports: No Symptoms. Denies: Abdominal Pain, Nausea, Vomiting Genitourinary: Reports: No Symptoms. Denies: Frequency, Burning Musculoskeletal: Reports: No Symptoms Skin: Reports: No Symptoms Neurological: Reports: No Symptoms Psychiatric: Reports: No Symptoms - Patient Data Vitals - Most Recent: Last Vital Signs Temp 98.0 F 12/03/18 08:00 Pulse 97 12/03/18 08:00 Resp 18 12/03/18 08:00 BP 125/84 12/03/18 08:00 Pulse Ox 97 12/03/18 08:00 Weight - Most Recent: 62.596 kg I&O - Last 24 Hours: Intake & Output 12/02/18 12/03/18 12/03/18 22:59 06:59 14:59 Intake Total 1000 Output Total 1250 Balance -250 Lab Results Last 24 Hours: Laboratory Results - last 24 hr 12/02/18 12/02/18 12/03/18 Range/Units 05:10 15:10 05:00 WBC 10.78 (4.0-11.0) K/uL RBC 4.04 L (4.50-5.90) M/uL Hgb 13.3 (13.0-17.0) g/dL Hct 37.4 L (38.0-50.0) % MCV 92.6 (80.0-98.0) fL MCH 32.9 H (27.0-32.0) pg MCHC 35.6 (31.0-37.0) g/dL RDW Std Deviation 46.1 (28.0-62.0) fl RDW Coeff of Stephane 14 (11.0-15.0) % Plt Count 136 L (150-400) K/uL MPV 12.50 H (7.40-12.00) fL Add Manual Diff YES Neutrophils % (Manual) 75 (48.0-80.0) % Band Neutrophils % 5 % Lymphocytes % (Manual) 11 L (16.0-40.0) % Monocytes % (Manual) 6 (0.0-15.0) % Eosinophils % (Manual) 3 (0.0-7.0) % Nucleated RBC % 0.0 /100WBC Absolute Seg Neuts 8.1 H (1.4-5.7) Band Neutrophils # 0.5 Lymphocytes # (Manual) 1.2 (0.6-2.4) Monocytes # (Manual) 0.6 (0.0-0.8) Eosinophils # (Manual) 0.3 (0.0-0.7) Nucleated RBCs # 0 K/uL Sodium (136-148) mmol/L Potassium 2.9 L (3.5-5.1) mmol/L Chloride (98-107) mmol/L Carbon Dioxide (21.0-32.0) mmol/L BUN (7.0-18.0) mg/dL Creatinine (0.8-1.3) mg/dL Est Cr Clr Drug Dosing mL/min Estimated GFR (MDRD) ml/min Glucose (74-106) mg/dL Calcium (8.5-10.1) mg/dL Magnesium 1.1 L 2.8 H (1.8-2.4) mg/dL Total Bilirubin (0.2-1.0) mg/dL AST (15-37) IU/L ALT (14-63) IU/L Alkaline Phosphatase (46-116) U/L Total Protein (6.4-8.2) g/dL Albumin (3.4-5.0) g/dL Globulin (2.6-4.0) g/dL Albumin/Globulin Ratio (0.9-1.6) Triglycerides 93 (0-200) mg/dL Cholesterol 206 H (50-200) mg/dL LDL Cholesterol, Calc 77 (60-180) mg/dL VLDL Cholesterol 18 (5-55) mg/dL HDL Cholesterol 110 H (40-60) mg/dL Cholesterol/HDL Ratio 1.9 L (3.3-6.0) Lipase (73-393) U/L 12/03/18 Range/Units 05:00 WBC (4.0-11.0) K/uL RBC (4.50-5.90) M/uL Hgb (13.0-17.0) g/dL Hct (38.0-50.0) % MCV (80.0-98.0) fL MCH (27.0-32.0) pg MCHC (31.0-37.0) g/dL RDW Std Deviation (28.0-62.0) fl RDW Coeff of Stephane (11.0-15.0) % Plt Count (150-400) K/uL MPV (7.40-12.00) fL Add Manual Diff Neutrophils % (Manual) (48.0-80.0) % Band Neutrophils % % Lymphocytes % (Manual) (16.0-40.0) % Monocytes % (Manual) (0.0-15.0) % Eosinophils % (Manual) (0.0-7.0) % Nucleated RBC % /100WBC Absolute Seg Neuts (1.4-5.7) Band Neutrophils # Lymphocytes # (Manual) (0.6-2.4) Monocytes # (Manual) (0.0-0.8) Eosinophils # (Manual) (0.0-0.7) Nucleated RBCs # K/uL Sodium 137 (136-148) mmol/L Potassium 2.5 L (3.5-5.1) mmol/L Chloride 102 (98-107) mmol/L Carbon Dioxide 20.6 L (21.0-32.0) mmol/L BUN 5 L (7.0-18.0) mg/dL Creatinine 0.4 L (0.8-1.3) mg/dL Est Cr Clr Drug Dosing 165.18 mL/min Estimated GFR (MDRD) > 60.0 ml/min Glucose 126 H (74-106) mg/dL Calcium 8.4 L (8.5-10.1) mg/dL Magnesium 1.3 L (1.8-2.4) mg/dL Total Bilirubin 1.1 H (0.2-1.0) mg/dL AST 84 H (15-37) IU/L ALT 34 (14-63) IU/L Alkaline Phosphatase 99 (46-116) U/L Total Protein 6.6 (6.4-8.2) g/dL Albumin 2.7 L (3.4-5.0) g/dL Globulin 3.9 (2.6-4.0) g/dL Albumin/Globulin Ratio 0.7 L (0.9-1.6) Triglycerides (0-200) mg/dL Cholesterol (50-200) mg/dL LDL Cholesterol, Calc (60-180) mg/dL VLDL Cholesterol (5-55) mg/dL HDL Cholesterol (40-60) mg/dL Cholesterol/HDL Ratio (3.3-6.0) Lipase 337 (73-393) U/L Med Orders - Current: Current Medications Docusate Sodium (Colace) 100 mg PO BID PRN PRN Reason: Constipation Folic Acid (Folic Acid) 1 mg SUBCUT DAILY [facility] Last Admin: 12/03/18 08:21 Dose: 1 mg Sodium Chloride (Normal Saline) 1,000 mls @ 999 mls/hr IV ASDIRECTED [facility] Stop: 12/03/18 09:31 Last Admin: 12/02/18 11:04 Dose: 999 mls/hr Pantoprazole Sodium 40 mg/ (Sodium Chloride) 10 mls @ 300 mls/hr IVPUSH Q24H [facility] Last Admin: 12/02/18 10:54 Dose: 300 mls/hr Sodium Chloride (Normal Saline) 1,000 mls @ 175 mls/hr IV ASDIRECTED [facility] Last Admin: 12/03/18 02:36 Dose: 175 mls/hr Magnesium Sulfate 4 gm/Potassium Chloride/Sodium Chloride 1,008 mls @ 175 mls/ hr IV ASDIRECTED [facility] Stop: 12/03/18 14:01 Last Admin: 12/03/18 09:08 Dose: 175 mls/hr Lorazepam (Ativan) 0 mg IVPUSH Q4H PRN; Protocol PRN Reason: CIWAA Last Admin: 12/02/18 10:55 Dose: 2 mg Metoprolol Tartrate (Lopressor) 5 mg IVPUSH Q4H PRN PRN Reason: HR over 120 Last Admin: 12/03/18 06:13 Dose: 5 mg Ondansetron HCl (Zofran) 4 mg IVPUSH Q4H PRN PRN Reason: Nausea Oxycodone HCl (Oxycodone) 5 mg PO Q4H PRN PRN Reason: Pain (moderate 4-6) Last Admin: 12/02/18 08:01 Dose: 5 mg Temazepam (Restoril) 15 mg PO BEDTIME PRN PRN Reason: Sleep Last Admin: 12/03/18 02:36 Dose: 15 mg Thiamine HCl (Vitamin B-1) 100 mg IV DAILY [facility] Last Admin: 12/03/18 08:24 Dose: 100 mg Discontinued Medications Sodium Chloride (Normal Saline) 1,000 mls @ 999 mls/hr IV STAT ONE Stop: 12/01/18 18:22 Last Admin: 12/01/18 17:44 Dose: 999 mls/hr Sodium Chloride (Normal Saline) 1,000 mls @ 125 mls/hr IV ASDIRECTED [facility] Last Admin: 12/02/18 03:58 Dose: 125 mls/hr Potassium Chloride/Sodium Chloride (Normal Saline With 40 Meq Kcl) 1,000 mls @ 175 mls/hr IV ASDIRECTED [facility] Stop: 12/02/18 14:13 Magnesium Sulfate 4 gm/ Premix 100 mls @ 50 mls/hr IV ONETIME ONE Stop: 12/02/18 12:09 Last Admin: 12/02/18 12:07 Dose: 50 mls/hr Potassium Chloride/Sodium Chloride (Normal Saline With 40 Meq Kcl) 1,000 mls @ 175 mls/hr IV ASDIRECTED [facility] Stop: 12/02/18 18:00 Last Admin: 12/02/18 14:00 Dose: 175 mls/hr Morphine Sulfate (Morphine) 2 mg IVPUSH Q2H PRN PRN Reason: Pain (severe 7-10) Stop: 12/02/18 18:45 Morphine Sulfate (Morphine) 2 mg IVPUSH Q2H PRN PRN Reason: Pain (severe 7-10) Stop: 12/02/18 18:45 Ondansetron HCl (Zofran) 4 mg IVPUSH ONETIME ONE Stop: 12/01/18 17:23 Last Admin: 12/01/18 17:44 Dose: 4 mg Ondansetron HCl (Zofran Odt) 4 mg PO Q6H PRN PRN Reason: nausea, able to take PO Potassium Chloride (Klor-Con M20) 40 meq PO ONETIME ONE Stop: 12/02/18 10:13 Last Admin: 12/02/18 10:54 Dose: 40 meq Potassium Chloride (Klor-Con M20) 40 meq PO ONETIME ONE Stop: 12/02/18 15:49 Last Admin: 12/02/18 16:24 Dose: 40 meq Potassium Chloride (Klor-Con M20) 40 meq PO ONETIME ONE Stop: 12/03/18 07:46 Last Admin: 12/03/18 08:20 Dose: 40 meq - Exam General: Alert, Oriented, Cooperative, No Acute Distress HEENT: Pupils Equal Lungs: Clear to Auscultation, Normal Respiratory Effort Cardiovascular: Regular Rate, Regular Rhythm GI/Abdominal Exam: Normal Bowel Sounds, Soft, Non-Tender, No Organomegaly Extremities: Normal Inspection, Normal Range of Motion, Non-Tender, No Pedal Edema Neurological: No New Focal Deficit Psy/Mental Status: Alert, Normal Affect, Normal Mood - Problem List & Annotations (1) Pancreatitis SNOMED Code(s): 91766991 Code(s): K85.90 - ACUTE PANCREATITIS WITHOUT NECROSIS OR INFECTION, UNSP Status: Acute Priority: High Current Visit: Yes Qualifiers: Pancreatitis type: alcohol induced (2) Hypokalemia SNOMED Code(s): 35131636 Code(s): E87.6 - HYPOKALEMIA Status: Acute Current Visit: Yes (3) Hypomagnesemia SNOMED Code(s): 673757308 Code(s): E83.42 - HYPOMAGNESEMIA Status: Acute Current Visit: Yes (4) Elevated liver enzymes SNOMED Code(s): 755262959 Code(s): R74.8 - ABNORMAL LEVELS OF OTHER SERUM ENZYMES Status: Acute Current Visit: No (5) Alcohol use SNOMED Code(s): 383848 Code(s): Z72.89 - OTHER PROBLEMS RELATED TO LIFESTYLE Status: Chronic Priority: High Current Visit: Yes (6) Thrombocytopenia SNOMED Code(s): 876408940 Code(s): D69.6 - THROMBOCYTOPENIA, UNSPECIFIED Status: Chronic Priority: High Current Visit: Yes - Problem List Review Problem List Initiated/Reviewed/Updated: Yes - My Orders Last 24 Hours: My Active Orders 12/02/18 08:26 LORazepam [Ativan] See Protocol IVPUSH Q4H PRN 12/02/18 08:27 Ondansetron [Zofran] 4 mg IVPUSH Q4H PRN 12/02/18 08:28 Telemetry Monitoring [Cardiac Monitoring] [RC] . DIRECTED 12/02/18 08:30 Sodium Chloride 0.9% [Normal Saline] 1,000 ml IV ASDIRECTED 12/02/18 09:00 Folic Acid 1 mg SUBCUT DAILY Thiamine [Vitamin B-1] 100 mg IV DAILY 12/02/18 10:15 Pantoprazole [ProTONIX IV] 40 mg Sodium Chloride 0.9% [Normal Saline] 10 ml IVPUSH Q24H 12/02/18 10:24 Metoprolol Tartrate [Lopressor] 5 mg IVPUSH Q4H PRN 12/02/18 18:00 Sodium Chloride 0.9% [Normal Saline] 1,000 ml IV ASDIRECTED 12/03/18 05:00 GLYCOSYLATED HEMOGLOBIN,HGBA1C [CHEM] Routine 12/03/18 08:15 Magnesium Sulfate [Magnesium Sulfate 50%] 4 gm Sodium Chloride 0.9% with KCl [ Normal Saline with 40 mEq KCl] 1,000 ml IV ASDIRECTED 12/04/18 05:11 CBC WITH AUTO DIFF [HEME] AM COMPREHENSIVE METABOLIC PN,CMP [CHEM] AM MAGNESIUM [CHEM] AM 12/05/18 05:11 CBC WITH AUTO DIFF [HEME] AM COMPREHENSIVE METABOLIC PN,CMP [CHEM] AM MAGNESIUM [CHEM] AM - Plan Plan:: This 63 year old male admitted with acute alcohol induced pancreatitis 1. Alcohol induced pancreatitis: Lipase improving, reports pain and nausea are gone. Requesting to eat. Start CL diet and monitor today due to readmission for pain and nausea. 2. Hypokalemia: Conitnue to upplement with 40 meq IV and PO. Recheck Potassium this afternoon 3. Hypomagnesemia: Supplement with 4 gm IV today and recheck in am. 4. Alcohol abuse: CIWAA with Ativan protocol. 5. Thrombocytopenia: Likely alcohol induced. Will monitor. Hold off on pharmacologic VTE prophylaxis due to high risk of bleeding. VTE prophylaxis: SCDs due to high risk of bleeding Dispo: 1-2 days pending improvement. <Kristian Shen - Last Filed: 12/03/18 10:44> - General Info Admission Dx/Problem (Free Text): I have examined the patient independently of Tonya Ryan CNP. I have discussed the case with her. I have reviewed and agree with the examination and plan as outlined by her. Please see orders. Continue [facility] protocol. - Patient Data Vitals - Most Recent: Last Vital Signs Temp 36.7 C 12/03/18 08:00 Pulse 97 12/03/18 08:00 Resp 18 12/03/18 08:00 BP 125/84 12/03/18 08:00 Pulse Ox 97 12/03/18 08:00 I&O - Last 24 Hours: Intake & Output 12/02/18 12/03/18 12/03/18 22:59 06:59 14:59 Intake Total 1000 Output Total 1250 Balance -250 Lab Results Last 24 Hours: Laboratory Results - last 24 hr 12/02/18 12/03/18 12/03/18 Range/Units 15:10 05:00 05:00 WBC 10.78 (4.0-11.0) K/uL RBC 4.04 L (4.50-5.90) M/uL Hgb 13.3 (13.0-17.0) g/dL Hct 37.4 L (38.0-50.0) % MCV 92.6 (80.0-98.0) fL MCH 32.9 H (27.0-32.0) pg MCHC 35.6 (31.0-37.0) g/dL RDW Std Deviation 46.1 (28.0-62.0) fl RDW Coeff of Stephane 14 (11.0-15.0) % Plt Count 136 L (150-400) K/uL MPV 12.50 H (7.40-12.00) fL Add Manual Diff YES Neutrophils % (Manual) 75 (48.0-80.0) % Band Neutrophils % 5 % Lymphocytes % (Manual) 11 L (16.0-40.0) % Monocytes % (Manual) 6 (0.0-15.0) % Eosinophils % (Manual) 3 (0.0-7.0) % Nucleated RBC % 0.0 /100WBC Absolute Seg Neuts 8.1 H (1.4-5.7) Band Neutrophils # 0.5 Lymphocytes # (Manual) 1.2 (0.6-2.4) Monocytes # (Manual) 0.6 (0.0-0.8) Eosinophils # (Manual) 0.3 (0.0-0.7) Nucleated RBCs # 0 K/uL Sodium 137 (136-148) mmol/L Potassium 2.9 L 2.5 L (3.5-5.1) mmol/L Chloride 102 (98-107) mmol/L Carbon Dioxide 20.6 L (21.0-32.0) mmol/L BUN 5 L (7.0-18.0) mg/dL Creatinine 0.4 L (0.8-1.3) mg/dL Est Cr Clr Drug Dosing 165.18 mL/min Estimated GFR (MDRD) > 60.0 ml/min Glucose 126 H (74-106) mg/dL Hemoglobin A1c (4.5-6.2) % Calcium 8.4 L (8.5-10.1) mg/dL Magnesium 2.8 H 1.3 L (1.8-2.4) mg/dL Total Bilirubin 1.1 H (0.2-1.0) mg/dL AST 84 H (15-37) IU/L ALT 34 (14-63) IU/L Alkaline Phosphatase 99 (46-116) U/L Total Protein 6.6 (6.4-8.2) g/dL Albumin 2.7 L (3.4-5.0) g/dL Globulin 3.9 (2.6-4.0) g/dL Albumin/Globulin Ratio 0.7 L (0.9-1.6) Lipase 337 (73-393) U/L 12/03/18 Range/Units 05:00 WBC (4.0-11.0) K/uL RBC (4.50-5.90) M/uL Hgb (13.0-17.0) g/dL Hct (38.0-50.0) % MCV (80.0-98.0) fL MCH (27.0-32.0) pg MCHC (31.0-37.0) g/dL RDW Std Deviation (28.0-62.0) fl RDW Coeff of Stephane (11.0-15.0) % Plt Count (150-400) K/uL MPV (7.40-12.00) fL Add Manual Diff Neutrophils % (Manual) (48.0-80.0) % Band Neutrophils % % Lymphocytes % (Manual) (16.0-40.0) % Monocytes % (Manual) (0.0-15.0) % Eosinophils % (Manual) (0.0-7.0) % Nucleated RBC % /100WBC Absolute Seg Neuts (1.4-5.7) Band Neutrophils # Lymphocytes # (Manual) (0.6-2.4) Monocytes # (Manual) (0.0-0.8) Eosinophils # (Manual) (0.0-0.7) Nucleated RBCs # K/uL Sodium (136-148) mmol/L Potassium (3.5-5.1) mmol/L Chloride (98-107) mmol/L Carbon Dioxide (21.0-32.0) mmol/L BUN (7.0-18.0) mg/dL Creatinine (0.8-1.3) mg/dL Est Cr Clr Drug Dosing mL/min Estimated GFR (MDRD) ml/min Glucose (74-106) mg/dL Hemoglobin A1c 5.6 (4.5-6.2) % Calcium (8.5-10.1) mg/dL Magnesium (1.8-2.4) mg/dL Total Bilirubin (0.2-1.0) mg/dL AST (15-37) IU/L ALT (14-63) IU/L Alkaline Phosphatase (46-116) U/L Total Protein (6.4-8.2) g/dL Albumin (3.4-5.0) g/dL Globulin (2.6-4.0) g/dL Albumin/Globulin Ratio (0.9-1.6) Lipase (73-393) U/L Med Orders - Current: Current Medications Docusate Sodium (Colace) 100 mg PO BID PRN PRN Reason: Constipation Folic Acid (Folic Acid) 1 mg SUBCUT DAILY [facility] Last Admin: 12/03/18 08:21 Dose: 1 mg Pantoprazole Sodium 40 mg/ (Sodium Chloride) 10 mls @ 300 mls/hr IVPUSH Q24H [facility] Last Admin: 12/03/18 10:16 Dose: 300 mls/hr Sodium Chloride (Normal Saline) 1,000 mls @ 175 mls/hr IV ASDIRECTED [facility] Last Admin: 12/03/18 02:36 Dose: 175 mls/hr Magnesium Sulfate 4 gm/Potassium Chloride/Sodium Chloride 1,008 mls @ 175 mls/ hr IV ASDIRECTED [facility] Stop: 12/03/18 14:01 Last Admin: 12/03/18 09:08 Dose: 175 mls/hr Lorazepam (Ativan) 0 mg IVPUSH Q4H PRN; Protocol PRN Reason: CIWAA Last Admin: 12/02/18 10:55 Dose: 2 mg Metoprolol Tartrate (Lopressor) 5 mg IVPUSH Q4H PRN PRN Reason: HR over 120 Last Admin: 12/03/18 06:13 Dose: 5 mg Ondansetron HCl (Zofran) 4 mg IVPUSH Q4H PRN PRN Reason: Nausea Oxycodone HCl (Oxycodone) 5 mg PO Q4H PRN PRN Reason: Pain (moderate 4-6) Last Admin: 12/02/18 08:01 Dose: 5 mg Temazepam (Restoril) 15 mg PO BEDTIME PRN PRN Reason: Sleep Last Admin: 12/03/18 02:36 Dose: 15 mg Thiamine HCl (Vitamin B-1) 100 mg IV DAILY [facility] Last Admin: 12/03/18 08:24 Dose: 100 mg Discontinued Medications Sodium Chloride (Normal Saline) 1,000 mls @ 999 mls/hr IV STAT ONE Stop: 12/01/18 18:22 Last Admin: 12/01/18 17:44 Dose: 999 mls/hr Sodium Chloride (Normal Saline) 1,000 mls @ 125 mls/hr IV ASDIRECTED [facility] Last Admin: 12/02/18 03:58 Dose: 125 mls/hr Sodium Chloride (Normal Saline) 1,000 mls @ 999 mls/hr IV ASDIRECTED [facility] Stop: 12/03/18 09:31 Last Admin: 12/02/18 11:04 Dose: 999 mls/hr Potassium Chloride/Sodium Chloride (Normal Saline With 40 Meq Kcl) 1,000 mls @ 175 mls/hr IV ASDIRECTED [facility] Stop: 12/02/18 14:13 Magnesium Sulfate 4 gm/ Premix 100 mls @ 50 mls/hr IV ONETIME ONE Stop: 12/02/18 12:09 Last Admin: 12/02/18 12:07 Dose: 50 mls/hr Potassium Chloride/Sodium Chloride (Normal Saline With 40 Meq Kcl) 1,000 mls @ 175 mls/hr IV ASDIRECTED [facility] Stop: 12/02/18 18:00 Last Admin: 12/02/18 14:00 Dose: 175 mls/hr Morphine Sulfate (Morphine) 2 mg IVPUSH Q2H PRN PRN Reason: Pain (severe 7-10) Stop: 12/02/18 18:45 Morphine Sulfate (Morphine) 2 mg IVPUSH Q2H PRN PRN Reason: Pain (severe 7-10) Stop: 12/02/18 18:45 Ondansetron HCl (Zofran) 4 mg IVPUSH ONETIME ONE Stop: 12/01/18 17:23 Last Admin: 12/01/18 17:44 Dose: 4 mg Ondansetron HCl (Zofran Odt) 4 mg PO Q6H PRN PRN Reason: nausea, able to take PO Potassium Chloride (Klor-Con M20) 40 meq PO ONETIME ONE Stop: 12/02/18 10:13 Last Admin: 12/02/18 10:54 Dose: 40 meq Potassium Chloride (Klor-Con M20) 40 meq PO ONETIME ONE Stop: 12/02/18 15:49 Last Admin: 12/02/18 16:24 Dose: 40 meq Potassium Chloride (Klor-Con M20) 40 meq PO ONETIME ONE Stop: 12/03/18 07:46 Last Admin: 12/03/18 08:20 Dose: 40 meq - Problem List & Annotations (1) Pancreatitis SNOMED Code(s): 56740749 Code(s): K85.90 - ACUTE PANCREATITIS WITHOUT NECROSIS OR INFECTION, UNSP Status: Acute Priority: High Current Visit: Yes Qualifiers: Pancreatitis type: alcohol induced (2) Alcohol use SNOMED Code(s): 836013 Code(s): Z72.89 - OTHER PROBLEMS RELATED TO LIFESTYLE Status: Chronic Priority: High Current Visit: Yes (3) Thrombocytopenia SNOMED Code(s): 411569373 Code(s): D69.6 - THROMBOCYTOPENIA, UNSPECIFIED Status: Chronic Priority: High Current Visit: Yes
[2018-12-03 09:51] LABS: HEMOGLOBIN A1C 5.6 % (4.5-6.2)
[2018-12-03] MEDS: Pantoprazole 40 MG in Sodium Chloride 0.9% 10 ML IVPUSH SCH (10:16)
[2018-12-04] MEDS: Sodium Chloride 0.9% 1,000 ML IV SCH ×4 (03:35→22:53)
[2018-12-04 06:20] LABS: CHLORIDE,CL 100 mmol/L (98-107); SODIUM,NA 136 mmol/L (136-148)
[2018-12-04] MEDS ORDERED: Magnesium Sulfate/Water 4 GM in Premix Bag 1 BAG IV ONE (06:58)
[2018-12-04] MEDS: Potassium Chloride 20 MEQ Tab.ER PO SCH ×3 (08:04→20:22)
[2018-12-04] MEDS: Folic Acid 50 MG/10 ML MDV SUBCUT SCH (09:07)
[2018-12-04] MEDS: Thiamine 200 MG/2 ML MDV IV SCH (09:09)
[2018-12-04] MEDS: Pantoprazole 40 MG in Sodium Chloride 0.9% 10 ML IVPUSH SCH (09:16)
--- NOTE | 2018-12-04 11:17 | PCM.PN ---
- General Info Date of Service: 12/04/18 Admission Dx/Problem (Free Text): Pancreatitis Subjective Update: The patient is a 63-year-old gentleman who had presented to the emergency department for admission secondary to nausea and vomiting. The patient does have a history of alcoholic pancreatitis and today he has multiple electrolyte abnormalities. He is still having some pain. The patient is looking forward to going home. Functional Status: Reports: Pain Controlled - Review of Systems General: Reports: Weakness HEENT: Reports: No Symptoms Pulmonary: Reports: No Symptoms Cardiovascular: Reports: No Symptoms Gastrointestinal: Reports: Abdominal Pain, Nausea Genitourinary: Reports: No Symptoms Musculoskeletal: Reports: No Symptoms Skin: Reports: No Symptoms Neurological: Reports: No Symptoms Psychiatric: Reports: No Symptoms - Patient Data Vitals - Most Recent: Last Vital Signs Temp 37.2 C 12/04/18 07:52 Pulse 96 12/04/18 07:52 Resp 16 12/04/18 07:52 BP 136/93 H 12/04/18 07:52 Pulse Ox 94 L 12/04/18 07:52 Weight - Most Recent: 62.596 kg I&O - Last 24 Hours: Intake & Output 12/03/18 12/04/18 12/04/18 22:59 06:59 14:59 Intake Total 3030 1000 360 Output Total 800 260 Balance 2230 740 360 Lab Results Last 24 Hours: Laboratory Results - last 24 hr 12/03/18 12/04/18 12/04/18 Range/Units 15:50 05:35 05:35 WBC 9.58 (4.0-11.0) K/uL RBC 3.74 L (4.50-5.90) M/uL Hgb 12.3 L (13.0-17.0) g/dL Hct 34.5 L (38.0-50.0) % MCV 92.2 (80.0-98.0) fL MCH 32.9 H (27.0-32.0) pg MCHC 35.7 (31.0-37.0) g/dL RDW Std Deviation 45.2 (28.0-62.0) fl RDW Coeff of Stephane 14 (11.0-15.0) % Plt Count 154 (150-400) K/uL MPV 11.50 (7.40-12.00) fL Neut % (Auto) 69.1 (48.0-80.0) % Lymph % (Auto) 15.8 L (16.0-40.0) % [place] % (Auto) 14.7 (0.0-15.0) % Eos % (Auto) 0.3 (0.0-7.0) % Baso % (Auto) 0.1 (0.0-1.5) % Neut # (Auto) 6.6 H (1.4-5.7) K/uL Lymph # (Auto) 1.5 (0.6-2.4) K/uL [place] # (Auto) 1.4 H (0.0-0.8) K/uL Eos # (Auto) 0.0 (0.0-0.7) K/uL Baso # (Auto) 0.0 (0.0-0.1) K/uL Nucleated RBC % 0.0 /100WBC Nucleated RBCs # 0 K/uL Sodium 136 (136-148) mmol/L Potassium 4.4 2.9 L (3.5-5.1) mmol/L Chloride 100 (98-107) mmol/L Carbon Dioxide 24.2 (21.0-32.0) mmol/L BUN 4 L (7.0-18.0) mg/dL Creatinine 0.6 L (0.8-1.3) mg/dL Est Cr Clr Drug Dosing 110.12 mL/min Estimated GFR (MDRD) > 60.0 ml/min Glucose 134 H (74-106) mg/dL Calcium 8.6 (8.5-10.1) mg/dL Magnesium 1.5 L (1.8-2.4) mg/dL Total Bilirubin 1.2 H (0.2-1.0) mg/dL AST 58 H (15-37) IU/L ALT 31 (14-63) IU/L Alkaline Phosphatase 94 (46-116) U/L Total Protein 6.6 (6.4-8.2) g/dL Albumin 2.9 L (3.4-5.0) g/dL Globulin 3.7 (2.6-4.0) g/dL Albumin/Globulin Ratio 0.8 L (0.9-1.6) Med Orders - Current: Current Medications Docusate Sodium (Colace) 100 mg PO BID PRN PRN Reason: Constipation Folic Acid (Folic Acid) 1 mg SUBCUT DAILY [facility] Last Admin: 12/04/18 09:07 Dose: 1 mg Pantoprazole Sodium 40 mg/ (Sodium Chloride) 10 mls @ 300 mls/hr IVPUSH Q24H [facility] Last Admin: 12/04/18 09:16 Dose: 300 mls/hr Sodium Chloride (Normal Saline) 1,000 mls @ 175 mls/hr IV ASDIRECTED [facility] Last Admin: 12/04/18 03:35 Dose: 175 mls/hr Lorazepam (Ativan) 0 mg IVPUSH Q4H PRN; Protocol PRN Reason: CIWAA Last Admin: 12/02/18 10:55 Dose: 2 mg Metoprolol Tartrate (Lopressor) 5 mg IVPUSH Q4H PRN PRN Reason: HR over 120 Last Admin: 12/03/18 06:13 Dose: 5 mg Ondansetron HCl (Zofran) 4 mg IVPUSH Q4H PRN PRN Reason: Nausea Oxycodone HCl (Oxycodone) 5 mg PO Q4H PRN PRN Reason: Pain (moderate 4-6) Last Admin: 12/02/18 08:01 Dose: 5 mg Potassium Chloride (Klor-Con M20) 20 meq PO BID [facility] Last Admin: 12/04/18 09:15 Dose: 20 meq Temazepam (Restoril) 15 mg PO BEDTIME PRN PRN Reason: Sleep Last Admin: 12/03/18 02:36 Dose: 15 mg Thiamine HCl (Vitamin B-1) 100 mg IV DAILY [facility] Last Admin: 12/04/18 09:09 Dose: 100 mg Discontinued Medications Sodium Chloride (Normal Saline) 1,000 mls @ 999 mls/hr IV STAT ONE Stop: 12/01/18 18:22 Last Admin: 12/01/18 17:44 Dose: 999 mls/hr Sodium Chloride (Normal Saline) 1,000 mls @ 125 mls/hr IV ASDIRECTED [facility] Last Admin: 12/02/18 03:58 Dose: 125 mls/hr Sodium Chloride (Normal Saline) 1,000 mls @ 999 mls/hr IV ASDIRECTED [facility] Stop: 12/03/18 09:31 Last Admin: 12/02/18 11:04 Dose: 999 mls/hr Potassium Chloride/Sodium Chloride (Normal Saline With 40 Meq Kcl) 1,000 mls @ 175 mls/hr IV ASDIRECTED [facility] Stop: 12/02/18 14:13 Magnesium Sulfate 4 gm/ Premix 100 mls @ 50 mls/hr IV ONETIME ONE Stop: 12/02/18 12:09 Last Admin: 12/02/18 12:07 Dose: 50 mls/hr Potassium Chloride/Sodium Chloride (Normal Saline With 40 Meq Kcl) 1,000 mls @ 175 mls/hr IV ASDIRECTED [facility] Stop: 12/02/18 18:00 Last Admin: 12/02/18 14:00 Dose: 175 mls/hr Magnesium Sulfate 4 gm/Potassium Chloride/Sodium Chloride 1,008 mls @ 175 mls/ hr IV ASDIRECTED [facility] Stop: 12/03/18 14:01 Last Admin: 12/03/18 09:08 Dose: 175 mls/hr Magnesium Sulfate 4 gm/ Premix 100 mls @ 50 mls/hr IV ONETIME ONE Stop: 12/04/18 08:57 Last Admin: 12/04/18 08:05 Dose: 50 mls/hr Morphine Sulfate (Morphine) 2 mg IVPUSH Q2H PRN PRN Reason: Pain (severe 7-10) Stop: 12/02/18 18:45 Morphine Sulfate (Morphine) 2 mg IVPUSH Q2H PRN PRN Reason: Pain (severe 7-10) Stop: 12/02/18 18:45 Ondansetron HCl (Zofran) 4 mg IVPUSH ONETIME ONE Stop: 12/01/18 17:23 Last Admin: 12/01/18 17:44 Dose: 4 mg Ondansetron HCl (Zofran Odt) 4 mg PO Q6H PRN PRN Reason: nausea, able to take PO Potassium Chloride (Klor-Con M20) 40 meq PO ONETIME ONE Stop: 12/02/18 10:13 Last Admin: 12/02/18 10:54 Dose: 40 meq Potassium Chloride (Klor-Con M20) 40 meq PO ONETIME ONE Stop: 12/02/18 15:49 Last Admin: 12/02/18 16:24 Dose: 40 meq Potassium Chloride (Klor-Con M20) 40 meq PO ONETIME ONE Stop: 12/03/18 07:46 Last Admin: 12/03/18 08:20 Dose: 40 meq - Exam Quality Assessment: No: Supplemental Oxygen General: Alert, Oriented, Cooperative, No Acute Distress HEENT: Pupils Equal, Pupils Reactive, EOMI. No: Mucous Membr. Moist/[place] (Dry) Neck: Supple, Trachea Midline Lungs: Clear to Auscultation, Normal Respiratory Effort Cardiovascular: Regular Rate, Regular Rhythm GI/Abdominal Exam: Normal Bowel Sounds, Soft, No Distention, Tender. No: Guarding, Rigid, Rebound Back Exam: Normal Inspection, Full Range of Motion Extremities: Normal Inspection, No Pedal Edema Skin: Warm, Dry, Intact Neurological: No New Focal Deficit, Normal Gait Psy/Mental Status: Alert, Normal Affect, Normal Mood - Problem List & Annotations (1) Pancreatitis SNOMED Code(s): 80591558 Code(s): K85.90 - ACUTE PANCREATITIS WITHOUT NECROSIS OR INFECTION, UNSP Status: Acute Priority: High Current Visit: Yes Qualifiers: Pancreatitis type: alcohol induced (2) Alcohol use SNOMED Code(s): 012561 Code(s): Z72.89 - OTHER PROBLEMS RELATED TO LIFESTYLE Status: Chronic Priority: High Current Visit: Yes (3) Thrombocytopenia SNOMED Code(s): 635849305 Code(s): D69.6 - THROMBOCYTOPENIA, UNSPECIFIED Status: Chronic Priority: High Current Visit: Yes (4) Tobacco use SNOMED Code(s): 356210249 Code(s): Z72.0 - TOBACCO USE Status: Chronic Priority: High Current Visit: Yes - Problem List Review Problem List Initiated/Reviewed/Updated: Yes - My Orders Last 24 Hours: My Active Orders 12/04/18 07:00 Potassium Chloride [Klor-Con M20] 20 meq PO BID - Plan Plan:: This 63 year old male admitted with acute alcohol induced pancreatitis 1. Alcohol induced pancreatitis: Lipase improving, reports pain and nausea are gone. Requesting to eat. Start CL diet and monitor today due to readmission for pain and nausea. 2. Hypokalemia: Conitnue to upplement with 40 meq IV and PO. Recheck Potassium this afternoon 3. Hypomagnesemia: Supplement with 4 gm IV today and recheck in am. 4. Alcohol abuse: CIWAA with Ativan protocol. 5. Thrombocytopenia: Likely alcohol induced. Will monitor. Hold off on pharmacologic VTE prophylaxis due to high risk of bleeding. VTE prophylaxis: SCDs due to high risk of bleeding Dispo: 1-2 days pending improvement. The patient is a 63-year-old gentleman who had been admitted secondary to pancreatitis. This is thought to be alcoholic induced. The patient currently is on full liquid diet and the CIWAA protocol. The patient has had improvement in his thrombocytopenia. I've ordered repeat laboratory testings for the morning. The patient likely should be appropriate for discharge tomorrow. We'll advance his diet as tolerated.
[2018-12-04] MEDS: Temazepam 15 MG Cap PO PRN (22:02)
[2018-12-05] MEDS: Sodium Chloride 0.9% 1,000 ML IV SCH (03:51)
[2018-12-05 07:09] LABS: CHLORIDE,CL 102 mmol/L (98-107); SODIUM,NA 137 mmol/L (136-148)
[2018-12-05] MEDS: Potassium Chloride 20 MEQ Tab.ER PO SCH (08:33)
[2018-12-05] MEDS: Folic Acid 50 MG/10 ML MDV SUBCUT SCH (08:33)
[2018-12-05] MEDS: Thiamine 200 MG/2 ML MDV IV SCH (08:34)
--- NOTE | 2018-12-05 09:30 | PCM.DCSUM1 ---
Discharge Summary - Hospital Course HPI Initial Comments: The patient was admitted for pancreatitis. Diagnosis: Stroke: No - Discharge Data Discharge Date: 12/05/18 Discharge Disposition: Home, Self-Care 01 Condition: Good - Discharge Diagnosis/Problem(s) (1) Pancreatitis SNOMED Code(s): 28820171 ICD Code: K85.90 - ACUTE PANCREATITIS WITHOUT NECROSIS OR INFECTION, UNSP Status: Resolved Priority: High Qualifiers: Pancreatitis type: alcohol induced (2) Alcohol use SNOMED Code(s): 183364 ICD Code: Z72.89 - OTHER PROBLEMS RELATED TO LIFESTYLE Status: Chronic Priority: High (3) Thrombocytopenia SNOMED Code(s): 092941604 ICD Code: D69.6 - THROMBOCYTOPENIA, UNSPECIFIED Status: Resolved Priority : High (4) Tobacco use SNOMED Code(s): 311051346 ICD Code: Z72.0 - TOBACCO USE Status: Chronic Priority: High (5) Hypokalemia SNOMED Code(s): 00916158 ICD Code: E87.6 - HYPOKALEMIA Status: Resolved (6) Hypomagnesemia SNOMED Code(s): 079772702 ICD Code: E83.42 - HYPOMAGNESEMIA Status: Resolved - Patient Summary/Data Hospital Course: The patient is a 63-year-old gentleman who had been admitted to acute hospitalization for pancreatitis on December 01, 2018. The patient was discharged from acute hospitalization for pancreatitis earlier prior to admission. The patient said that he had continued pain, nausea and vomiting and not able to tolerate diet. The patient said that he had not been consuming alcohol. Part of the patient's admission was was secondary to the patient's hypokalemia as he was noted to have a potassium upon admission of 2.6 mmol per liter. The patient also had hypomagnesemia which was contributing to his hypokalemia and both of these were aggressively replaced. By day of discharge the patient's potassium had improved to 3.5 and his magnesium although low was at 1.7. Both were millimoles per liter. The patient initially had been kept nothing by mouth and was fluid resuscitated with the use of normal saline and 125 mL per hour. As before the patient's pain was controlled with the use of narcotics. The patient had continued to improve and his diet was advanced slowly to clear liquids up to clear liquids then full diet. The patient had been able to tolerate diet well. The patient said that he had been pain-free and that he could go home. The patient has been advised to avoid alcohol. By day of discharge the patient' s lipase had been normalized at 337. The patient has been recommended to continue with his diet as tolerated. He is also to have activity as tolerated. The patient has been hemodynamically stable and he is discharged from acute hospitalization with the recommendations listed above. - Patient Instructions Diet: Heart Healthy Diet Activity: As Tolerated - Discharge Plan *PRESCRIPTION DRUG MONITORING PROGRAM REVIEWED*: No *COPY OF PRESCRIPTION DRUG MONITORING REPORT IN PATIENT PATRICK: No Home Medications: Home Meds . [No Known Home Meds] 05/03/18 [History] Oxygen Therapy Mode: Room Air Patient Handouts: Hypomagnesemia, Hypokalemia, Acute Pancreatitis Referrals: Vinnie Madrigal MD [Resident] - 12/15/18 2:45 pm - Discharge Summary/Plan Comment DC Time >30 min.: Yes - General Info Date of Service: 12/05/18 Admission Dx/Problem (Free Text: Pancreatitis Subjective Update: The patient's doing better. He wants to go home. Functional Status: Reports: Pain Controlled - Review of Systems General: Reports: No Symptoms HEENT: Reports: No Symptoms Pulmonary: Reports: No Symptoms Cardiovascular: Reports: No Symptoms Gastrointestinal: Reports: No Symptoms Genitourinary: Reports: No Symptoms Musculoskeletal: Reports: No Symptoms Skin: Reports: No Symptoms Neurological: Reports: No Symptoms Psychiatric: Reports: No Symptoms - Patient Data Vitals - Most Recent: Last Vital Signs Temp 36.2 C 12/05/18 07:42 Pulse 96 12/05/18 07:42 Resp 18 12/05/18 07:42 BP 160/104 H 12/05/18 07:42 Pulse Ox 94 L 12/05/18 07:42 Weight - Most Recent: 62.596 kg I&O - Last 24 hours: Intake & Output 12/04/18 12/05/18 12/05/18 22:59 06:59 14:59 Intake Total 1413 87005 Balance 1413 51564 Lab Results - Last 24 hrs: Laboratory Results - last 24 hr 12/05/18 12/05/18 Range/Units 06:09 06:09 WBC 9.33 (4.0-11.0) K/uL RBC 3.70 L (4.50-5.90) M/uL Hgb 12.4 L (13.0-17.0) g/dL Hct 34.2 L (38.0-50.0) % MCV 92.4 (80.0-98.0) fL MCH 33.5 H (27.0-32.0) pg MCHC 36.3 (31.0-37.0) g/dL RDW Std Deviation 45.2 (28.0-62.0) fl RDW Coeff of Stephane 14 (11.0-15.0) % Plt Count 182 (150-400) K/uL MPV 11.80 (7.40-12.00) fL Add Manual Diff YES Neutrophils % (Manual) 57 (48.0-80.0) % Band Neutrophils % 2 % Lymphocytes % (Manual) 28 (16.0-40.0) % Monocytes % (Manual) 12 (0.0-15.0) % Eosinophils % (Manual) 1 (0.0-7.0) % Nucleated RBC % 0.0 /100WBC Absolute Seg Neuts 5.3 (1.4-5.7) Band Neutrophils # 0.2 Lymphocytes # (Manual) 2.6 H (0.6-2.4) Monocytes # (Manual) 1.1 H (0.0-0.8) Eosinophils # (Manual) 0.1 (0.0-0.7) Nucleated RBCs # 0 K/uL Sodium 137 (136-148) mmol/L Potassium 3.5 (3.5-5.1) mmol/L Chloride 102 (98-107) mmol/L Carbon Dioxide 24.4 (21.0-32.0) mmol/L BUN 2 L (7.0-18.0) mg/dL Creatinine 0.5 L (0.8-1.3) mg/dL Est Cr Clr Drug Dosing 132.15 mL/min Estimated GFR (MDRD) > 60.0 ml/min Glucose 125 H (74-106) mg/dL Calcium 8.6 (8.5-10.1) mg/dL Magnesium 1.7 L (1.8-2.4) mg/dL Total Bilirubin 1.1 H (0.2-1.0) mg/dL AST 93 H (15-37) IU/L ALT 40 (14-63) IU/L Alkaline Phosphatase 92 (46-116) U/L Total Protein 6.2 L (6.4-8.2) g/dL Albumin 3.0 L (3.4-5.0) g/dL Globulin 3.2 (2.6-4.0) g/dL Albumin/Globulin Ratio 0.9 (0.9-1.6) Med Orders - Current: Current Medications Docusate Sodium (Colace) 100 mg PO BID PRN PRN Reason: Constipation Folic Acid (Folic Acid) 1 mg SUBCUT DAILY [facility] Last Admin: 12/05/18 08:33 Dose: 1 mg Pantoprazole Sodium 40 mg/ (Sodium Chloride) 10 mls @ 300 mls/hr IVPUSH Q24H [facility] Last Admin: 12/04/18 09:16 Dose: 300 mls/hr Lorazepam (Ativan) 0 mg IVPUSH Q4H PRN; Protocol PRN Reason: CIWAA Last Admin: 12/02/18 10:55 Dose: 2 mg Metoprolol Tartrate (Lopressor) 5 mg IVPUSH Q4H PRN PRN Reason: HR over 120 Last Admin: 12/03/18 06:13 Dose: 5 mg Ondansetron HCl (Zofran) 4 mg IVPUSH Q4H PRN PRN Reason: Nausea Oxycodone HCl (Oxycodone) 5 mg PO Q4H PRN PRN Reason: Pain (moderate 4-6) Last Admin: 12/02/18 08:01 Dose: 5 mg Potassium Chloride (Klor-Con M20) 20 meq PO BID [facility] Last Admin: 12/05/18 08:33 Dose: 20 meq Temazepam (Restoril) 15 mg PO BEDTIME PRN PRN Reason: Sleep Last Admin: 12/04/18 22:02 Dose: 15 mg Thiamine HCl (Vitamin B-1) 100 mg IV DAILY [facility] Last Admin: 12/05/18 08:34 Dose: 100 mg Discontinued Medications Sodium Chloride (Normal Saline) 1,000 mls @ 999 mls/hr IV STAT ONE Stop: 12/01/18 18:22 Last Admin: 12/01/18 17:44 Dose: 999 mls/hr Sodium Chloride (Normal Saline) 1,000 mls @ 125 mls/hr IV ASDIRECTED [facility] Last Admin: 12/02/18 03:58 Dose: 125 mls/hr Sodium Chloride (Normal Saline) 1,000 mls @ 999 mls/hr IV ASDIRECTED [facility] Stop: 12/03/18 09:31 Last Admin: 12/02/18 11:04 Dose: 999 mls/hr Potassium Chloride/Sodium Chloride (Normal Saline With 40 Meq Kcl) 1,000 mls @ 175 mls/hr IV ASDIRECTED [facility] Stop: 12/02/18 14:13 Magnesium Sulfate 4 gm/ Premix 100 mls @ 50 mls/hr IV ONETIME ONE Stop: 12/02/18 12:09 Last Admin: 12/02/18 12:07 Dose: 50 mls/hr Potassium Chloride/Sodium Chloride (Normal Saline With 40 Meq Kcl) 1,000 [facility]ls [facility] 12/02/18 18:00 Last Admin: 12/02/18 14:00 Dose: 175 mls/hr Sodium Chloride (Normal Saline) 1,000 mls @ [facility] Last Admin: 12/05/18 03:51 Dose: 175 mls/hr Magnesium Sulfate 4 gm/Potassium Chloride/Sodium Chloride 1,008 mls @ 175 mls[facility] Stop: 12/03/18 14:01 Last Admin: 12/03/18 09:08 Dose: 175 mls/hr Magnesium Sulfate 4 gm/ Premix 100 mls @ 50 mls/hr IV ONETIME ONE Stop: 12/04/18 08:57 Last Admin: 12/04/18 08:05 Dose: 50 mls/hr Morphine Sulfate (Morphine) 2 mg IVPUSH Q2H PRN PRN Reason: Pain (severe 7-10) Stop: 12/02/18 18:45 Morphine Sulfate (Morphine) 2 mg IVPUSH Q2H PRN PRN Reason: Pain (severe 7-10) Stop: 12/02/18 18:45 Ondansetron HCl (Zofran) 4 mg IVPUSH ONETIME ONE Stop: 12/01/18 17:23 Last Admin: 12/01/18 17:44 Dose: 4 mg Ondansetron HCl (Zofran Odt) 4 mg PO Q6H PRN PRN Reason: nausea, able to take PO Potassium Chloride (Klor-Con M20) 40 meq PO ONETIME ONE Stop: 12/02/18 10:13 Last Admin: 12/02/18 10:54 Dose: 40 meq Potassium Chloride (Klor-Con M20) 40 meq PO ONETIME ONE Stop: 12/02/18 15:49 Last Admin: 12/02/18 16:24 Dose: 40 meq Potassium Chloride (Klor-Con M20) 40 meq PO ONETIME ONE Stop: 12/03/18 07:46 Last Admin: 12/03/18 08:20 Dose: 40 meq - Exam Quality Assessment: Denies: Supplemental Oxygen General: Reports: Alert, Oriented, Cooperative, No Acute Distress HEENT: Reports: Pupils Equal, Pupils Reactive, EOMI. Denies: Mucous Membr. Moist/[place] (Dry) Neck: Reports: Supple, Trachea Midline Lungs: Reports: Clear to Auscultation, Normal Respiratory Effort Cardiovascular: Reports: Regular Rate, Regular Rhythm GI/Abdominal Exam: Normal Bowel Sounds, Soft, No Distention Back Exam: Reports: Normal Inspection, Full Range of Motion Extremities: Normal Inspection, No Pedal Edema Skin: Reports: Warm, Dry, Intact Neurological: Reports: No New Focal Deficit, Normal Gait Psy/Mental Status: Reports: Alert, Normal Affect, Normal Mood *Q Meaningful Use (DIS) - VTE *Q VTE Pharmacological Contraindications *Q: Risk of Bleeding
== END 2018-12-05 10:50 | disposition home or self-care (01) ==
LOC: MW.ED 17:07 → MW.MS 18:13
PROVIDERS: ADMIT Internal Medicine; ATTEND Internal Medicine
DX: K85.20 Alcohol induced acute pancreatitis without necrosis or infection (principal); D69.6 Thrombocytopenia, unspecified; E87.6 Hypokalemia; E83.42 Hypomagnesemia; E78.00 Pure hypercholesterolemia, unspecified; I10 Essential (primary) hypertension; F17.210 Nicotine dependence, cigarettes, uncomplicated; Z72.89 Other problems related to lifestyle
CPT/HCPCS: 36415; 71045; 76705; 80053; 80061; 81001; 83036; 83690; 83735; 84132; 85025; 93005; 96374; 99285; A9270; C9113; J2060; J2405; J3411; J3475; J3480; J3490; J7040; J7050; 99283

== ENCOUNTER 2019-02-22 11:32 | Observation (INO) | payer MEDICAID ==
[2019-02-22] MEDS ORDERED: LORazepam 2 MG/ML SDV IVPUSH ONE (11:39)
[2019-02-22] MEDS ORDERED: MVI, Adult with Vitamin K 10 ML, Thiamine 100 MG, Folic Acid 1 MG in Sodium Chloride 0.... IV ONE ×4 (11:39)
--- NOTE | 2019-02-22 11:39 | EDM.PDOC ---
ED HPI GENERAL MEDICAL PROBLEM - General Chief Complaint: Chest Pain Stated Complaint: CHEST DISCOMFORT,ABD PAIN Time Seen by Provider: 02/22/19 11:36 Source of Information: Reports: Patient History Limitations: Reports: No Limitations - History of Present Illness INITIAL COMMENTS - FREE TEXT/NARRATIVE: HISTORY AND PHYSICAL: History of present illness: Patient is a 63-year-old male presenting to the emergency rooms for complaints of abdominal pain. Patient currently rates his pain at an 8 out of 10 and describes it as "heaviness". Patient states his pain started last night, along with chest pain as well that he currently rates at a 7 out of 10, when he was eating [place] food. He states he started eating his food, however "could not finish it due to the pain". He states he also has a "minor". He is nauseous now and reports that he "vomited once". He also reports that he has left-sided back pain, however he denies pain in his shoulders. His last bowel movement was around 2 AM this morning. Patient denies any fever, chills, change in vision, syncope or near syncope. Denies any shortness of breath or cough. Denies any diarrhea, constipation or dysuria. Has not noted any blood in urine or stool. Patient has been eating and drinking appropriately prior to this. He states his last alcoholic beverage was "Friday". Review of systems: As per history of present illness and below otherwise all systems reviewed and negative. Past medical history: As per history of present illness and as reviewed below otherwise noncontributory. Surgical history: As per history of present illness and as reviewed below otherwise noncontributory. Social history: See social history for further information Family history: As per history of present illness and as reviewed below otherwise noncontributory. Physical exam: General: Patient is a well-nourished and well-developed 63-year-old male. Alert and oriented. Nontoxic in appearance and in no acute distress. Vital signs have been reviewed by me. HEENT: Atraumatic, normocephalic, pupils equal and reactive bilaterally, negative for conjunctival pallor or scleral icterus, mucous membranes moist, TMs normal bilaterally, throat clear, neck supple, nontender, trachea midline. No drooling or trismus noted. No meningeal signs. No hot potato voice noted. Lungs: Clear to auscultation, breath sounds equal bilaterally, chest nontender. Heart: S1S2, regular rate and rhythm without overt murmur Abdomen: Soft, nondistended, tender to palpation in LUQ and LLQ, Negative for masses or hepatosplenomegaly. Negative for costovertebral tenderness. Skin: Intact, warm, dry. No lesions or rashes noted. Extremities: Atraumatic, moves all extremities per self without difficulty or deficits, negative for cords or calf pain. Neurovascular unremarkable. Neuro: Awake, alert, oriented. Cranial nerves II through XII unremarkable. Cerebellum unremarkable. Motor and sensory unremarkable throughout. Exam nonfocal. Notes: The lipase is elevated; history of pancreatitis. Patient does feel some improvement while being here in the ER. No active nausea or vomiting. CT of the abdomen and pelvis shows findings compatible with pancreatitis. Small hiatal hernia. Dr Keita was consulted on this patient, she is agreeable to accepting this patient. Patient is aware and agreeable to plan of care. Diagnostics: CBC, CMP, Troponin, EKG, CXR, Lipase, ETOH Therapeutics: IV fluids, Ativan Impression: Pancreatitis Chest Pain, Non-specific Plan: Observation admission Definitive disposition and diagnosis as appropriate pending reevaluation and review of above. chest Pain Score (Numeric/FACES): 10 - Related Data Allergies Allergy/AdvReac Type Severity Reaction Status Date / Time No Known Allergies Allergy Verified 02/22/19 11:41 Home Meds: Home Meds . [No Known Home Meds] 05/03/18 [History] Past Medical History - Past Health History Medical/Surgical History: Denies Medical/Surgical History HEENT History: Reports: None Cardiovascular History: Reports: High Cholesterol, Hypertension Respiratory History: Reports: None Gastrointestinal History: Reports: GI Bleed Genitourinary History: Reports: None Musculoskeletal History: Reports: None Neurological History: Reports: None Psychiatric History: Reports: None Endocrine/Metabolic History: Reports: None Hematologic History: Reports: None Immunologic History: Reports: None Oncologic (Cancer) History: Reports: None Dermatologic History: Reports: None - Infectious Disease History Infectious Disease History: Reports: None - Past Surgical History GI Surgical History: Reports: EGD Social & Family History - Family History Family Medical History: Noncontributory - Caffeine Use Caffeine Use: Reports: None ED ROS GENERAL - Review of Systems Review Of Systems: ROS reveals no pertinent complaints other than HPI. ED EXAM, GENERAL - Physical Exam Exam: See Below (See dication) Course - Vital Signs Last Recorded V/S: Last Vital Signs Temp 97.3 F 02/22/19 11:37 Pulse 91 02/22/19 13:45 Resp 18 02/22/19 13:45 BP 164/94 H 02/22/19 13:45 Pulse Ox 98 02/22/19 13:45 - Orders/Labs/Meds Orders: Active Orders 24 hr Category Date Time Status Admission Status [Patient Status] [ADT] Stat ADT 02/22/19 14:08 Ordered EKG Documentation Completion [RC] STAT Care 02/22/19 11:36 Active Sodium Chloride 0.9% [Normal Saline] 1,000 ml Med 02/22/19 13:56 Active IV STAT Medication Orders Sodium Chloride (Normal Saline) 1,000 mls @ 150 mls/hr IV STAT ONE Stop: 02/22/19 20:35 Labs: Laboratory Tests 02/22/19 02/22/19 Range/Units 11:53 11:53 WBC 9.89 (4.0-11.0) K/uL RBC 4.80 (4.50-5.90) M/uL Hgb 15.7 (13.0-17.0) g/dL Hct 44.3 (38.0-50.0) % MCV 92.3 (80.0-98.0) fL MCH 32.7 H (27.0-32.0) pg MCHC 35.4 (31.0-37.0) g/dL RDW Std Deviation 49.1 (28.0-62.0) fl RDW Coeff of Stephane 15 (11.0-15.0) % Plt Count 161 (150-400) K/uL MPV 11.40 (7.40-12.00) fL Neut % (Auto) 79.7 (48.0-80.0) % Lymph % (Auto) 16.3 (16.0-40.0) % [place] % (Auto) 3.8 (0.0-15.0) % Eos % (Auto) 0.0 (0.0-7.0) % Baso % (Auto) 0.2 (0.0-1.5) % Neut # (Auto) 7.9 H (1.4-5.7) K/uL Lymph # (Auto) 1.6 (0.6-2.4) K/uL [place] # (Auto) 0.4 (0.0-0.8) K/uL Eos # (Auto) 0.0 (0.0-0.7) K/uL Baso # (Auto) 0.0 (0.0-0.1) K/uL Nucleated RBC % 0.0 /100WBC Nucleated RBCs # 0 K/uL Sodium 147 (136-148) mmol/L Potassium 3.4 L (3.5-5.1) mmol/L Chloride 107 (98-107) mmol/L Carbon Dioxide 23.1 (21.0-32.0) mmol/L BUN 8 (7.0-18.0) mg/dL Creatinine 0.7 L (0.8-1.3) mg/dL Est Cr Clr Drug Dosing 106.61 mL/min Estimated GFR (MDRD) > 60.0 ml/min Glucose 114 H (74-106) mg/dL Calcium 8.9 (8.5-10.1) mg/dL Total Bilirubin 0.9 (0.2-1.0) mg/dL AST 28 (15-37) IU/L ALT 19 (14-63) IU/L Alkaline Phosphatase 92 (46-116) U/L Troponin I < 0.050 (0.000-0.056) ng/mL Total Protein 7.5 (6.4-8.2) g/dL Albumin 3.4 (3.4-5.0) g/dL Globulin 4.1 H (2.6-4.0) g/dL Albumin/Globulin Ratio 0.8 L (0.9-1.6) Lipase 3425 H (73-393) U/L Ethyl Alcohol 143 mg/dL Meds: Medications Generic Name Dose Route Start Last Admin Trade Name Freq PRN Reason Stop Dose Admin Sodium Chloride 1,000 mls @ 150 mls/hr 02/22/19 13:56 Normal Saline IV 02/22/19 20:35 STAT ONE Discontinued Medications Generic Name Dose Route Start Last Admin Trade Name Freq PRN Reason Stop Dose Admin Multivitamins/Minerals 10 ml/ 1,011.2 mls @ 500 mls/hr 02/22/19 11:39 12:14 Thiamine HCl 100 mg/ Folic IV 02/22/19 13:40 500 mls/hr Acid 1 mg/ Sodium Chloride ONETIME ONE Administration Lorazepam 1 mg 02/22/19 11:39 02/22/19 11:58 Ativan IVPUSH 02/22/19 11:40 1 mg ONETIME ONE Administration Departure - Departure Time of Disposition: 14:11 Disposition: Home, Self-Care 01 Clinical Impression: Pancreatitis Qualifiers: Chronicity: acute Pancreatitis type: alcohol induced Acute pancreatitis complication: unspecified Qualified Code(s): K85.20 - Alcohol induced acute pancreatitis without necrosis or infection Forms: ED Department Discharge - My Orders Last 24 Hours: My Active Orders 02/22/19 11:36 EKG Documentation Completion [RC] STAT 02/22/19 13:56 Sodium Chloride 0.9% [Normal Saline] 1,000 ml IV STAT 02/22/19 14:08 Admission Status [Patient Status] [ADT] Stat - Assessment/Plan Last 24 Hours: My Active Orders 02/22/19 11:36 EKG Documentation Completion [RC] STAT 02/22/19 13:56 Sodium Chloride 0.9% [Normal Saline] 1,000 ml IV STAT 02/22/19 14:08 Admission Status [Patient Status] [ADT] Stat
--- NOTE | 2019-02-22 12:37 | CR ---
Chest: Frontal view of the chest was obtained. Comparison: Prior chest x-ray 12/01/18. Heart size is normal. Tortuous thoracic aorta is seen. Lungs are clear. Expansile bony lesion is seen within the left ninth posterior rib. This is seen on previous exam. No change from previous study is present. Impression: 1. Expansile lesion within the left posterior ninth rib. This is stable from prior exam. Uncertain if this represents a lytic metastatic lesion or primary benign bone lesion. If patient has no history of primary carcinoma and has no symptoms to this rib, this would suggest that this is a benign finding. Please correlate. 2. Nothing acute is otherwise seen on frontal chest x-ray. Diagnostic code #3 MTDD
[2019-02-22 12:44] LABS: BLOOD UREA NITROGEN,BUN 8 mg/dL (7.0-18.0); CARBON DIOXIDE,CO2 23.1 mmol/L (21.0-32.0); CHLORIDE,CL 107 mmol/L (98-107); GLUCOSE RANDOM 114 mg/dL (74-106); POTASSIUM,K 3.4 mmol/L (3.5-5.1); SODIUM,NA 147 mmol/L (136-148)
[2019-02-22 12:59] LABS: LIPASE 3425 U/L (73-393)
[2019-02-22] MEDS ORDERED: Sodium Chloride 0.9% 1,000 ML IV ONE (13:56)
--- NOTE | 2019-02-22 14:03 | CT ---
CT abdomen and pelvis Technique: Multiple axial sections were obtained from above the dome of the diaphragm inferiorly through the pubic symphysis. Intravenous contrast was utilized. Comparison: No previous study. Findings: Visualized lung bases show nothing acute. Liver contains no focal abnormality. Spleen appears within normal limits. Small hiatal hernia is seen. Adrenal glands show no nodule. Fluid and inflammatory change is seen around the pancreas compatible with pancreatitis. Gallbladder contains no calcified gallstones. Kidneys show symmetric contrast enhancement without hydronephrosis or mass. Aorta shows atherosclerotic calcification which continues into the iliac vessels without aneurysm. No retroperitoneal adenopathy or mesenteric abnormalities are seen. No pelvic mass or adenopathy is identified. Appendix not definitely visualized. Bone window settings were reviewed which shows severe disc space narrowing at L5 -S1 with vacuum disc phenomena. Impression: 1. Findings compatible with pancreatitis as described above. 2. Small hiatal hernia. 3. Other findings as noted above. Diagnostic code #3 MTDD
--- NOTE | 2019-02-22 14:59 | PCM.HP.2 ---
H&P History of Present Illness - General Date of Service: 02/22/19 Admit Problem/Dx: Admission Diagnosis/Problem Admission Diagnosis/Problem Pancreatitis Source of Information: Patient History Limitations: Reports: Intoxication - History of Present Illness Initial Comments - Free Text/Narative: Patient is a 63-year-old male with PMH of alcohol abuse, liver dysfunction, presents to the emergency rooms for complaints of abdominal pain. Patient states that he was drinking yesterday afternoon, he usually drinks hard liquor including whisky. States shaheed he was trying to quit but stared drinking again last few days. Patient states that his pain started getting worse once he started eating [place] food at a restaurant. Patient couldn't finish the food and came to ER for assessment. Patient denies any fever, chills, change in vision, syncope or near syncope, shortness of breath or cough. Denies any diarrhea, bloody stools, constipation or dysuria. Does have associated N/V. He had seen his PCP few weeks back for his "abnormal liver tests" which were improving as per the voicemail he had in his phone. CT scan abdomen was obtained which showed pancreatitis. Patient is being admitted for management of pancreatitis. Onset of Symptoms: Reports: Today, Sudden Duration of Symptoms: Reports: Hour(s): Quality: Reports: Burning, Sharp Severity: Severe Improves with: Reports: None Worsens with: Reports: None Associated Symptoms: Reports: Loss of Appetite, Nausea/Vomiting chest Pain Score (Numeric/FACES): 10 - Related Data Allergies/Adverse Reactions: Allergies Allergy/AdvReac Type Severity Reaction Status Date / Time No Known Allergies Allergy Verified 02/22/19 11:41 Home Medications: Home Meds . [No Known Home Meds] 05/03/18 [History] Past Medical History - Past Health History Medical/Surgical History: Denies Medical/Surgical History HEENT History: Reports: None Cardiovascular History: Reports: High Cholesterol, Hypertension Respiratory History: Reports: None Gastrointestinal History: Reports: GI Bleed Genitourinary History: Reports: None Musculoskeletal History: Reports: None Neurological History: Reports: None Psychiatric History: Reports: None Endocrine/Metabolic History: Reports: None Hematologic History: Reports: None Immunologic History: Reports: None Oncologic (Cancer) History: Reports: None Dermatologic History: Reports: None - Infectious Disease History Infectious Disease History: Reports: None - Past Surgical History GI Surgical History: Reports: EGD Social & Family History - Family History Family Medical History: Noncontributory - Tobacco Use Smoking Status *Q: Current Every Day Smoker Years of Tobacco use: 10 Packs/Tins Daily: 0.2 - Caffeine Use Caffeine Use: Reports: None - Alcohol Use Days Per Week of Alcohol Use: 7 Number of Drinks Per Day: 8 Total Drinks Per Week: 56 - Recreational Drug Use Recreational Drug Use: No H&P Review of Systems - Review of Systems: Review Of Systems: See Below General: Reports: Malaise, Fatigue. Denies: Fever, Chills, Weakness HEENT: Denies: Ear Pain, Sinus Congestion, Sore Throat Pulmonary: Denies: Shortness of Breath, Wheezing, Pleuritic Chest Pain Cardiovascular: Denies: Chest Pain, Palpitations, Dyspnea on Exertion, Orthopnea Gastrointestinal: Reports: Abdominal Pain, Anorexia, Decreased Appetite, Nausea , Vomiting. Denies: Black Stool, Bloody Stool, Constipation, Diarrhea, Difficulty Swallowing, Distension, Melena, Stool Incontinence Genitourinary: Denies: Dysuria, Frequency Musculoskeletal: Denies: Neck Pain, Shoulder Pain Skin: Denies: Cyanosis, Jaundice, Mottled Psychiatric: Denies: Confusion, Depression, Anxiety Neurological: Denies: Numbness, Paresthesia Hematologic/Lymphatic: Denies: Easy Bleeding, Easy Bruising Exam - Exam Exam: See Below - Vital Signs Vital Signs: Last Vital Signs Temp 36.3 C 02/22/19 11:37 Pulse 87 02/22/19 14:52 Resp 18 02/22/19 14:52 BP 150/87 H 02/22/19 14:52 Pulse Ox 98 02/22/19 14:52 Weight: 86.183 kg - Exam General: Moderate Distress, Other (intoxicated) HEENT: Conjunctiva Clear, Other (Dry Mucosa) Neck: Supple, Trachea Midline Lungs: Clear to Auscultation, Normal Respiratory Effort Cardiovascular: Regular Rate, Regular Rhythm GI/Abdominal Exam: Soft, Tender. No: No Organomegaly, Distended Back Exam: Normal Inspection, Full Range of Motion Extremities: Normal Inspection, Normal Range of Motion Peripheral Pulses: 3+: Dorsalis Pedis (L), Dorsalis Pedis (R) Skin: Warm, Dry - Patient Data Lab Results Last 24 hrs: Laboratory Results - last 24 hr 02/22/19 02/22/19 Range/Units 11:53 11:53 WBC 9.89 (4.0-11.0) K/uL RBC 4.80 (4.50-5.90) M/uL Hgb 15.7 (13.0-17.0) g/dL Hct 44.3 (38.0-50.0) % MCV 92.3 (80.0-98.0) fL MCH 32.7 H (27.0-32.0) pg MCHC 35.4 (31.0-37.0) g/dL RDW Std Deviation 49.1 (28.0-62.0) fl RDW Coeff of Stephane 15 (11.0-15.0) % Plt Count 161 (150-400) K/uL MPV 11.40 (7.40-12.00) fL Neut % (Auto) 79.7 (48.0-80.0) % Lymph % (Auto) 16.3 (16.0-40.0) % [place] % (Auto) 3.8 (0.0-15.0) % Eos % (Auto) 0.0 (0.0-7.0) % Baso % (Auto) 0.2 (0.0-1.5) % Neut # (Auto) 7.9 H (1.4-5.7) K/uL Lymph # (Auto) 1.6 (0.6-2.4) K/uL [place] # (Auto) 0.4 (0.0-0.8) K/uL Eos # (Auto) 0.0 (0.0-0.7) K/uL Baso # (Auto) 0.0 (0.0-0.1) K/uL Nucleated RBC % 0.0 /100WBC Nucleated RBCs # 0 K/uL Sodium 147 (136-148) mmol/L Potassium 3.4 L (3.5-5.1) mmol/L Chloride 107 (98-107) mmol/L Carbon Dioxide 23.1 (21.0-32.0) mmol/L BUN 8 (7.0-18.0) mg/dL Creatinine 0.7 L (0.8-1.3) mg/dL Est Cr Clr Drug Dosing 106.61 mL/min Estimated GFR (MDRD) > 60.0 ml/min Glucose 114 H (74-106) mg/dL Calcium 8.9 (8.5-10.1) mg/dL Total Bilirubin 0.9 (0.2-1.0) mg/dL AST 28 (15-37) IU/L ALT 19 (14-63) IU/L Alkaline Phosphatase 92 (46-116) U/L Troponin I < 0.050 (0.000-0.056) ng/mL Total Protein 7.5 (6.4-8.2) g/dL Albumin 3.4 (3.4-5.0) g/dL Globulin 4.1 H (2.6-4.0) g/dL Albumin/Globulin Ratio 0.8 L (0.9-1.6) Lipase 3425 H (73-393) U/L Ethyl Alcohol 143 mg/dL Result Diagrams: 02/22/19 11:53 02/22/19 11:53 *Q Meaningful Use (ADM) - VTE Risk Assess *Q Each Risk Factor Represents 2 Points: Age 60 - 74 Years Total Score 2 Point Risk Factors: 2 - Problem List (1) Pancreatitis SNOMED Code(s): 17803634 ICD Code: K85.90 - ACUTE PANCREATITIS WITHOUT NECROSIS OR INFECTION, UNSP Status: Acute Current Visit: No Qualifiers: Chronicity: acute Pancreatitis type: alcohol induced Acute pancreatitis complication: unspecified Qualified Code(s): K85.20 - Alcohol induced acute pancreatitis without necrosis or infection (2) Alcohol use SNOMED Code(s): 012553 ICD Code: Z72.89 - OTHER PROBLEMS RELATED TO LIFESTYLE Status: Chronic Priority: High Current Visit: No (3) Tobacco use SNOMED Code(s): 001160505 ICD Code: Z72.0 - TOBACCO USE Status: Chronic Priority: High Current Visit: No Problem List Initiated/Reviewed/Updated: Yes Orders Last 24hrs: Active Orders 24 hr Category Date Time Status Admission Status [Patient Status] [ADT] Stat ADT 02/22/19 14:08 Active EKG Documentation Completion [RC] STAT Care 02/22/19 11:36 Active Sodium Chloride 0.9% [Normal Saline] 1,000 ml Med 02/22/19 13:56 Active IV STAT Medication Orders Sodium Chloride (Normal Saline) 1,000 mls @ 150 mls/hr IV STAT ONE Stop: 02/22/19 20:35 Assessment/Plan Comment:: Patient comes in with c/o Nausea, Vomiting, Abdominal Pain CT scan abdomen showed pancreatitis, likely sec to alcohol abuse Liver enzymes normal, troponin normal Patient will be admitted to Med-Surg unit NPO for now Will start IV fluid hydration Will start IV PPI, IV Zofran as needed No signs of infection as of now, no need for antibiotics Will advance diet by sony as tolerated CIWA protocol fuentes alcohol withdrawal DVT ppx Anticipate 1 midnight stay
[2019-02-22] MEDS ORDERED: Ondansetron 4 MG/2 ML SDV IVPUSH PRN (15:00)
[2019-02-22] MEDS ORDERED: Albuterol/Ipratropium 3.0-0.5 MG/3 ML Neb Soln NEB PRN (15:00)
[2019-02-22] MEDS ORDERED: LORazepam 2 MG/ML SDV IVPUSH PRN (15:28)
[2019-02-22] MEDS: Morphine 2 MG/ML Syringe IVPUSH PRN ×3 (15:31→23:24)
[2019-02-22] MEDS ORDERED: Naloxone 0.4 MG/ML Syringe IVPUSH PRN (15:32)
[2019-02-22] MEDS: Sodium Chloride 0.9% 1,000 ML IV SCH (20:37)
[2019-02-22] MEDS: Heparin Sodium 5,000 Units/ML Vial SUBCUT SCH (22:13)
[2019-02-23] MEDS: Sodium Chloride 0.9% 1,000 ML IV SCH (05:32)
[2019-02-23] MEDS: Heparin Sodium 5,000 Units/ML Vial SUBCUT SCH (05:32)
[2019-02-23 06:44] LABS: BLOOD UREA NITROGEN,BUN 5 mg/dL (7.0-18.0); CARBON DIOXIDE,CO2 25.7 mmol/L (21.0-32.0); CHLORIDE,CL 110 mmol/L (98-107); GLUCOSE RANDOM 108 mg/dL (74-106); POTASSIUM,K 2.9 mmol/L (3.5-5.1); SODIUM,NA 147 mmol/L (136-148)
[2019-02-23] MEDS ORDERED: Magnesium Sulfate/Water 4 GM in Premix Bag 1 BAG IV ONE (08:57)
[2019-02-23] MEDS ORDERED: Potassium Chloride 20 MEQ Tab.ER PO ONE (08:57)
[2019-02-23] MEDS ORDERED: Thiamine 100 MG in Sodium Chloride 0.9% 100 ML IV SCH (09:00)
[2019-02-23] MEDS ORDERED: Folic Acid 50 MG/10 ML MDV SUBCUT SCH (09:00)
[2019-02-23] MEDS ORDERED: Sodium Chloride 0.9% with KCl 1,000 ML IV SCH (09:00)
--- NOTE | 2019-02-23 09:28 | PCM.PN ---
- General Info Date of Service: 02/23/19 - Review of Systems Systems Review Comment:: abdominal pain has improving, patient is wanting discharge - Patient Data Vitals - Most Recent: Last Vital Signs Temp 36.9 C 02/23/19 08:00 Pulse 62 02/23/19 08:00 Resp 16 02/23/19 08:00 BP 163/84 H 02/23/19 08:00 Pulse Ox 97 02/23/19 08:00 Weight - Most Recent: 86.183 kg I&O - Last 24 Hours: Intake & Output 02/22/19 02/23/19 02/23/19 22:59 06:59 14:59 Intake Total 0 1593 Output Total 825 Balance 0 768 Lab Results Last 24 Hours: Laboratory Results - last 24 hr 02/22/19 02/22/19 02/23/19 Range/Units 11:53 11:53 06:10 WBC 9.89 8.33 (4.0-11.0) K/uL RBC 4.80 4.02 L (4.50-5.90) M/uL Hgb 15.7 13.0 (13.0-17.0) g/dL Hct 44.3 36.9 L (38.0-50.0) % MCV 92.3 91.8 (80.0-98.0) fL MCH 32.7 H 32.3 H (27.0-32.0) pg MCHC 35.4 35.2 (31.0-37.0) g/dL RDW Std Deviation 49.1 48.9 (28.0-62.0) fl RDW Coeff of Stephane 15 15 (11.0-15.0) % Plt Count 161 140 L (150-400) K/uL MPV 11.40 11.70 (7.40-12.00) fL Neut % (Auto) 79.7 71.1 (48.0-80.0) % Lymph % (Auto) 16.3 19.7 (16.0-40.0) % [place] % (Auto) 3.8 9.0 (0.0-15.0) % Eos % (Auto) 0.0 0.1 (0.0-7.0) % Baso % (Auto) 0.2 0.1 (0.0-1.5) % Neut # (Auto) 7.9 H 5.9 H (1.4-5.7) K/uL Lymph # (Auto) 1.6 1.6 (0.6-2.4) K/uL [place] # (Auto) 0.4 0.8 (0.0-0.8) K/uL Eos # (Auto) 0.0 0.0 (0.0-0.7) K/uL Baso # (Auto) 0.0 0.0 (0.0-0.1) K/uL Nucleated RBC % 0.0 0.0 /100WBC Nucleated RBCs # 0 0 K/uL Sodium 147 (136-148) mmol/L Potassium 3.4 L (3.5-5.1) mmol/L Chloride 107 (98-107) mmol/L Carbon Dioxide 23.1 (21.0-32.0) mmol/L BUN 8 (7.0-18.0) mg/dL Creatinine 0.7 L (0.8-1.3) mg/dL Est Cr Clr Drug Dosing 106.61 mL/min Estimated GFR (MDRD) > 60.0 ml/min Glucose 114 H (74-106) mg/dL Calcium 8.9 (8.5-10.1) mg/dL Phosphorus (2.6-4.7) mg/dL Magnesium (1.8-2.4) mg/dL Total Bilirubin 0.9 (0.2-1.0) mg/dL AST 28 (15-37) IU/L ALT 19 (14-63) IU/L Alkaline Phosphatase 92 (46-116) U/L Troponin I < 0.050 (0.000-0.056) ng/mL Total Protein 7.5 (6.4-8.2) g/dL Albumin 3.4 (3.4-5.0) g/dL Globulin 4.1 H (2.6-4.0) g/dL Albumin/Globulin Ratio 0.8 L (0.9-1.6) Lipase 3425 H (73-393) U/L Ethyl Alcohol 143 mg/dL 02/23/19 Range/Units 06:10 WBC (4.0-11.0) K/uL RBC (4.50-5.90) M/uL Hgb (13.0-17.0) g/dL Hct (38.0-50.0) % MCV (80.0-98.0) fL MCH (27.0-32.0) pg MCHC (31.0-37.0) g/dL RDW Std Deviation (28.0-62.0) fl RDW Coeff of Stephane (11.0-15.0) % Plt Count (150-400) K/uL MPV (7.40-12.00) fL Neut % (Auto) (48.0-80.0) % Lymph % (Auto) (16.0-40.0) % [place] % (Auto) (0.0-15.0) % Eos % (Auto) (0.0-7.0) % Baso % (Auto) (0.0-1.5) % Neut # (Auto) (1.4-5.7) K/uL Lymph # (Auto) (0.6-2.4) K/uL [place] # (Auto) (0.0-0.8) K/uL Eos # (Auto) (0.0-0.7) K/uL Baso # (Auto) (0.0-0.1) K/uL Nucleated RBC % /100WBC Nucleated RBCs # K/uL Sodium 147 (136-148) mmol/L Potassium 2.9 L (3.5-5.1) mmol/L Chloride 110 H (98-107) mmol/L Carbon Dioxide 25.7 (21.0-32.0) mmol/L BUN 5 L (7.0-18.0) mg/dL Creatinine 0.7 L (0.8-1.3) mg/dL Est Cr Clr Drug Dosing 106.61 mL/min Estimated GFR (MDRD) > 60.0 ml/min Glucose 108 H (74-106) mg/dL Calcium 8.1 L (8.5-10.1) mg/dL Phosphorus 3.1 (2.6-4.7) mg/dL Magnesium 1.2 L (1.8-2.4) mg/dL Total Bilirubin (0.2-1.0) mg/dL AST (15-37) IU/L ALT (14-63) IU/L Alkaline Phosphatase (46-116) U/L Troponin I (0.000-0.056) ng/mL Total Protein (6.4-8.2) g/dL Albumin (3.4-5.0) g/dL Globulin (2.6-4.0) g/dL Albumin/Globulin Ratio (0.9-1.6) Lipase (73-393) U/L Ethyl Alcohol mg/dL Med Orders - Current: Current Medications Albuterol/Ipratropium (Duoneb 3.0-0.5 Mg/3 Ml) 3 ml NEB Q4HRRT PRN PRN Reason: Shortness Of Breath/wheezing Folic Acid (Folic Acid) 1 mg SUBCUT DAILY MARCEL Heparin Sodium (Porcine) (Heparin Sodium) 5,000 units SUBCUT Q8H MARCEL Last Admin: 02/23/19 05:32 Dose: 5,000 units Potassium Chloride/Sodium Chloride (Normal Saline With 40 Meq Kcl) 1,000 mls @ 150 mls/hr IV ASDIRECTED [facility] Stop: 02/23/19 15:39 Magnesium Sulfate 4 gm/ Premix 100 mls @ 50 mls/hr IV ONETIME ONE Stop: 02/23/19 10:56 Thiamine HCl 100 mg/ Sodium (Chloride) 101 mls @ 202 mls/hr IV DAILY MARCEL Lorazepam (Ativan) 0 mg IVPUSH Q4H PRN; Protocol PRN Reason: PER CIWA Morphine Sulfate (Morphine) 1 mg IVPUSH Q4H PRN PRN Reason: Pain (severe 7-10) Stop: 02/23/19 15:04 Last Admin: 02/22/19 23:24 Dose: 1 mg Naloxone HCl (Narcan) 0.4 mg IVPUSH ONETIME PRN PRN Reason: Oversedation Ondansetron HCl (Zofran) 4 mg IVPUSH Q6H PRN PRN Reason: Nausea/Vomiting Last Admin: 02/22/19 18:52 Dose: 4 mg Discontinued Medications Multivitamins/Minerals 10 ml/Thiamine HCl 100 mg/ Folic Acid 1 mg/ Sodium Chloride 1,011.2 mls @ 500 mls/hr IV ONETIME ONE Stop: 02/22/19 13:40 Last Admin: 02/22/19 12:14 Dose: 500 mls/hr Sodium Chloride (Normal Saline) 1,000 mls @ 150 mls/hr IV STAT ONE Stop: 02/22/19 20:35 Last Admin: 02/22/19 15:15 Dose: 150 mls/hr Sodium Chloride (Normal Saline) 1,000 mls @ 125 mls/hr IV ASDIRECTED MARCEL Last Admin: 02/23/19 05:32 Dose: 125 mls/hr Lorazepam (Ativan) 1 mg IVPUSH ONETIME ONE Stop: 02/22/19 11:40 Last Admin: 02/22/19 11:58 Dose: 1 mg Potassium Chloride (Klor-Con M20) 40 meq PO ONETIME ONE Stop: 02/23/19 08:58 - Exam General: Alert, Oriented Neck: Supple Lungs: Clear to Auscultation, Normal Respiratory Effort Cardiovascular: Regular Rate, Regular Rhythm GI/Abdominal Exam: Soft, Non-Tender, No Mass Extremities: No Pedal Edema Skin: Warm, Dry, Intact - Problem List Review Problem List Initiated/Reviewed/Updated: Yes - My Orders Last 24 Hours: My Active Orders 02/23/19 08:57 Magnesium Sulfate/Water [Magnesium Sulfate in Water Premix] 4 gm Premix Bag 1 bag IV ONETIME 02/23/19 09:00 Folic Acid 1 mg SUBCUT DAILY Sodium Chloride 0.9% with KCl [Normal Saline with 40 mEq KCl] 1,000 ml IV ASDIRECTED Thiamine [Vitamin B-1] 100 mg Sodium Chloride 0.9% [Normal Saline] 100 ml IV DAILY 02/23/19 Breakfast Regular Diet [DIET] - Plan Plan:: 63 yo male admitted for alcoholic pancreatitis. Treating with IV fluids. We will advance diet as tolerated today and replace potassium and magnesium
== END 2019-02-23 11:00 | disposition left against medical advice (07) ==
LOC: MW.ED 11:32 → MW.MS 14:24
PROVIDERS: ADMIT Student in an Organized Health Care Education/Training Program; ATTEND Student in an Organized Health Care Education/Training Program
DX: K85.20 Alcohol induced acute pancreatitis without necrosis or infection (principal); E78.00 Pure hypercholesterolemia, unspecified; I10 Essential (primary) hypertension; F17.210 Nicotine dependence, cigarettes, uncomplicated; Z72.89 Other problems related to lifestyle
CPT/HCPCS: 36415; 71045; 74177; 80048; 80053; 80320; 83690; 83735; 84100; 84484; 85025; 93005; 96361; 96365; 96366; 96367; 96368; 96372; 96375; 96376; 99285; A9270; G0378; J1644; J2060; J2270; J2405; J3411; J3475; J3480; J7030; J7040; G0480

== ENCOUNTER 2019-02-24 07:08 | Emergency (ER) | payer MEDICAID ==
[2019-02-24] MEDS ORDERED: Ondansetron 4 MG/2 ML SDV IVPUSH ONE (07:25)
[2019-02-24] MEDS ORDERED: Sodium Chloride 0.9% 1,000 ML IV ONE (07:25)
--- NOTE | 2019-02-24 08:33 | CR ---
INDICATION: Chest pain and dyspnea. TECHNIQUE: Chest 1 view COMPARISON: 02/22/2019 FINDINGS: Cardiovascular and mediastinum: Heart size and vasculature are normal in caliber and appearance. Lungs and pleural spaces: Lungs are clear. No sign of focal consolidation, pleural effusion, or pneumothorax. Bones and soft tissues: Degenerative changes again noted in the spine. IMPRESSION: No acute or significant findings. Dictated by Kendall Sebastian MD @ Feb 24 2019 8:30AM Signed by Dr. Kendall Sebastian @ Feb 24 2019 8:31AM
[2019-02-24 08:39] LABS: BLOOD UREA NITROGEN,BUN 1 mg/dL (7.0-18.0); CARBON DIOXIDE,CO2 27.2 mmol/L (21.0-32.0); CHLORIDE,CL 98 mmol/L (98-107); GLUCOSE RANDOM 129 mg/dL (74-106); LIPASE 382 U/L (73-393); POTASSIUM,K 2.6 mmol/L (3.5-5.1); SODIUM,NA 137 mmol/L (136-148)
[2019-02-24] MEDS ORDERED: Potassium Chloride 20 MEQ Tab.ER PO ONE (08:43)
[2019-02-24] MEDS ORDERED: Acetaminophen/HYDROcodone 325-5 MG Tab PO ONE (08:44)
--- NOTE | 2019-02-24 08:44 | EDM.PDOC ---
ED HPI GENERAL MEDICAL PROBLEM - General Chief Complaint: Abdominal Pain Stated Complaint: ABDOMINAL PAIN AND BACK PAIN Time Seen by Provider: 02/24/19 08:44 Source of Information: Reports: Patient - History of Present Illness INITIAL COMMENTS - FREE TEXT/NARRATIVE: HISTORY AND PHYSICAL: History of present illness: [Patient with alcoholism and pancreatitis presents with epigastric pain radiating to back he rates 5 out of 10 however does not elicit any pain behaviors no apparent distress no fever chills sweats mild nausea associated he was in 2 days prior with similar symptoms lipase was 3000 however is normalized today CT was performed no evidence of abscess lab remains normal Patient does have hypokalemia he was provided potassium on his last visit however he has not been taking this ] Review of systems: As per history of present illness and below otherwise all systems reviewed and negative. Past medical history: As per history of present illness and as reviewed below otherwise noncontributory. Surgical history: As per history of present illness and as reviewed below otherwise noncontributory. Social history: No reported history of drug or alcohol abuse. Family history: As per history of present illness and as reviewed below otherwise noncontributory. Physical exam: HEENT: Atraumatic, normocephalic, pupils reactive, negative for conjunctival pallor or scleral icterus, mucous membranes moist, throat clear, neck supple, nontender, trachea midline. Lungs: Clear to auscultation, breath sounds equal bilaterally, chest nontender. Heart: S1S2, regular, negative for clicks, rubs, or JVD. Abdomen: Soft, nondistended, nontender. Negative for masses or hepatosplenomegaly. Negative for costovertebral tenderness. Pelvis: Stable nontender. Genitourinary: Deferred. Rectal: Deferred. Extremities: Atraumatic, negative for cords or calf pain. Neurovascular unremarkable. Neuro: Awake, alert, oriented. Cranial nerves II through XII unremarkable. Cerebellum unremarkable. Motor and sensory unremarkable throughout. Exam nonfocal. Diagnostics: [] CBC CMP troponin lipase EKG chest 1 view Therapeutics: [ normal saline Zofran Proton X Conway Janet Dur ]he offered observation admission however refused He has not been drinking over the last 24-48 hours no signs of withdrawal Conway Zofran continue potassium as directed Impression: hypokalemia [ alcohol use abuse dependence chronic pancreatitis ] Definitive disposition and diagnosis as appropriate pending reevaluation and review of above. Abdomen Pain Score (Numeric/FACES): 10 - Related Data Allergies Allergy/AdvReac Type Severity Reaction Status Date / Time No Known Allergies Allergy Verified 02/24/19 07:32 Home Meds: Home Meds Folic Acid 1 mg PO DAILY 02/22/19 [History] Thiamine HCl [Vitamin B-1] 100 mg PO DAILY 02/22/19 [History] Past Medical History - Past Health History Medical/Surgical History: Denies Medical/Surgical History HEENT History: Reports: None Cardiovascular History: Reports: High Cholesterol, Hypertension Respiratory History: Reports: None Gastrointestinal History: Reports: GI Bleed Genitourinary History: Reports: None Musculoskeletal History: Reports: None Neurological History: Reports: None Psychiatric History: Reports: None Endocrine/Metabolic History: Reports: None Hematologic History: Reports: None Immunologic History: Reports: None Oncologic (Cancer) History: Reports: None Dermatologic History: Reports: None - Infectious Disease History Infectious Disease History: Reports: None - Past Surgical History Head Surgeries/Procedures: Reports: None HEENT Surgical History: Reports: None Cardiovascular Surgical History: Reports: None Respiratory Surgical History: Reports: None GI Surgical History: Reports: EGD Male Surgical History: Reports: None Endocrine Surgical History: Reports: None Neurological Surgical History: Reports: None Musculoskeletal Surgical History: Reports: None Oncologic Surgical History: Reports: None Dermatological Surgical History: Reports: None Social & Family History - Family History Family Medical History: Noncontributory - Tobacco Use Smoking Status *Q: Current Every Day Smoker Years of Tobacco use: 3 Packs/Tins Daily: 1 - Caffeine Use Caffeine Use: Reports: None Caffeine Use Comment: once in a while use of coffee. - Recreational Drug Use Recreational Drug Use: No ED ROS GENERAL - Review of Systems Review Of Systems: See Below ED EXAM, GENERAL - Physical Exam Exam: See Below Course - Vital Signs Last Recorded V/S: Last Vital Signs Temp 96.7 F 02/24/19 07:29 Pulse 93 02/24/19 07:29 Resp 18 02/24/19 07:29 BP 136/93 H 02/24/19 07:29 Pulse Ox 99 02/24/19 07:29 - Orders/Labs/Meds Orders: Active Orders 24 hr Category Date Time Status EKG Documentation Completion [RC] STAT Care 02/24/19 07:25 Active Labs: Laboratory Tests 02/24/19 02/24/19 02/24/19 Range/Units 07:53 07:53 07:53 WBC 6.67 (4.0-11.0) K/uL RBC 4.82 (4.50-5.90) M/uL Hgb 15.4 (13.0-17.0) g/dL Hct 43.4 (38.0-50.0) % MCV 90.0 (80.0-98.0) fL MCH 32.0 (27.0-32.0) pg MCHC 35.5 (31.0-37.0) g/dL RDW Std Deviation 46.5 (28.0-62.0) fl RDW Coeff of Stephane 14 (11.0-15.0) % Plt Count 125 L (150-400) K/uL MPV 12.70 H (7.40-12.00) fL Neut % (Auto) 62.4 (48.0-80.0) % Lymph % (Auto) 26.8 (16.0-40.0) % [place] % (Auto) 9.3 (0.0-15.0) % Eos % (Auto) 1.2 (0.0-7.0) % Baso % (Auto) 0.3 (0.0-1.5) % Neut # (Auto) 4.2 (1.4-5.7) K/uL Lymph # (Auto) 1.8 (0.6-2.4) K/uL [place] # (Auto) 0.6 (0.0-0.8) K/uL Eos # (Auto) 0.1 (0.0-0.7) K/uL Baso # (Auto) 0.0 (0.0-0.1) K/uL Nucleated RBC % 0.0 /100WBC Nucleated RBCs # 0 K/uL Sodium 137 (136-148) mmol/L Potassium 2.6 L (3.5-5.1) mmol/L Chloride 98 (98-107) mmol/L Carbon Dioxide 27.2 (21.0-32.0) mmol/L BUN 1 L (7.0-18.0) mg/dL Creatinine 0.6 L (0.8-1.3) mg/dL Est Cr Clr Drug Dosing 124.38 mL/min Estimated GFR (MDRD) > 60.0 ml/min Glucose 129 H (74-106) mg/dL Calcium 9.0 (8.5-10.1) mg/dL Total Bilirubin 1.6 H (0.2-1.0) mg/dL AST 25 (15-37) IU/L ALT 17 (14-63) IU/L Alkaline Phosphatase 90 (46-116) U/L Troponin I < 0.050 (0.000-0.056) ng/mL Total Protein 8.1 (6.4-8.2) g/dL Albumin 3.6 (3.4-5.0) g/dL Globulin 4.5 H (2.6-4.0) g/dL Albumin/Globulin Ratio 0.8 L (0.9-1.6) Lipase 382 (73-393) U/L Urine Color Urine Appearance Urine pH (5.0-8.0) Ur Specific [place] (1.001-1.035) Urine Protein (NEGATIVE) mg/dL Urine Glucose (UA) (NEGATIVE) mg/dL Urine Ketones (NEGATIVE) mg/dL Urine Occult Blood (NEGATIVE) Urine Nitrite (NEGATIVE) Urine Bilirubin (NEGATIVE) Urine Urobilinogen (<2.0) EU/dL Ur Leukocyte Esterase (NEGATIVE) Ethyl Alcohol < 3.0 mg/dL 02/24/19 Range/Units 08:00 WBC (4.0-11.0) K/uL RBC (4.50-5.90) M/uL Hgb (13.0-17.0) g/dL Hct (38.0-50.0) % MCV (80.0-98.0) fL MCH (27.0-32.0) pg MCHC (31.0-37.0) g/dL RDW Std Deviation (28.0-62.0) fl RDW Coeff of Stephane (11.0-15.0) % Plt Count (150-400) K/uL MPV (7.40-12.00) fL Neut % (Auto) (48.0-80.0) % Lymph % (Auto) (16.0-40.0) % [place] % (Auto) (0.0-15.0) % Eos % (Auto) (0.0-7.0) % Baso % (Auto) (0.0-1.5) % Neut # (Auto) (1.4-5.7) K/uL Lymph # (Auto) (0.6-2.4) K/uL [place] # (Auto) (0.0-0.8) K/uL Eos # (Auto) (0.0-0.7) K/uL Baso # (Auto) (0.0-0.1) K/uL Nucleated RBC % /100WBC Nucleated RBCs # K/uL Sodium (136-148) mmol/L Potassium (3.5-5.1) mmol/L Chloride (98-107) mmol/L Carbon Dioxide (21.0-32.0) mmol/L BUN (7.0-18.0) mg/dL Creatinine (0.8-1.3) mg/dL Est Cr Clr Drug Dosing mL/min Estimated GFR (MDRD) ml/min Glucose (74-106) mg/dL Calcium (8.5-10.1) mg/dL Total Bilirubin (0.2-1.0) mg/dL AST (15-37) IU/L ALT (14-63) IU/L Alkaline Phosphatase (46-116) U/L Troponin I (0.000-0.056) ng/mL Total Protein (6.4-8.2) g/dL Albumin (3.4-5.0) g/dL Globulin (2.6-4.0) g/dL Albumin/Globulin Ratio (0.9-1.6) Lipase (73-393) U/L Urine Color YELLOW Urine Appearance CLEAR Urine pH 6.5 (5.0-8.0) Ur Specific [place] 1.010 (1.001-1.035) Urine Protein NEGATIVE (NEGATIVE) mg/dL Urine Glucose (UA) NEGATIVE (NEGATIVE) mg/dL Urine Ketones TRACE H (NEGATIVE) mg/dL Urine Occult Blood NEGATIVE (NEGATIVE) Urine Nitrite NEGATIVE (NEGATIVE) Urine Bilirubin NEGATIVE (NEGATIVE) Urine Urobilinogen 0.2 (<2.0) EU/dL Ur Leukocyte Esterase NEGATIVE (NEGATIVE) Ethyl Alcohol mg/dL Meds: Medications Discontinued Medications Generic Name Dose Route Start Last Admin Trade Name Freq PRN Reason Stop Dose Admin Hydrocodone Bitart/Acetaminophen 1 tab 02/24/19 08:44 Conway 325-5 Mg PO 02/24/19 08:45 ONETIME ONE Sodium Chloride 1,000 mls @ 999 mls/hr 02/24/19 07:25 02/24/19 07:39 Normal Saline IV 02/24/19 08:25 999 mls/hr STAT ONE Administration Ondansetron HCl 8 mg 02/24/19 07:25 02/24/19 07:39 Zofran IVPUSH 02/24/19 07:26 8 mg ONETIME ONE Administration Potassium Chloride 40 meq 02/24/19 08:43 Klor-Con M20 PO 02/24/19 08:44 ONETIME ONE Departure - Departure Time of Disposition: 08:59 Disposition: Home, Self-Care 01 Condition: Good Clinical Impression: Hypokalemia, Abdominal pain, Alcohol abuse with physiological dependence - Discharge Information Referrals: Basilia Jones DO [Primary Care Provider] - Forms: ED Department Discharge Additional Instructions: The following information is given to patients seen in the emergency department who are being discharged to home. This information is to outline your options for follow-up care. We provide all patients seen in our emergency department with a follow-up referral. The need for follow-up, as well as the timing and circumstances, are variable depending upon the specifics of your emergency department visit. If you don't have a primary care physician on staff, we will provide you with a referral. We always advise you to contact your personal physician following an emergency department visit to inform them of the circumstance of the visit and for follow-up with them and/or the need for any referrals to a consulting specialist. The emergency department will also refer you to a specialist when appropriate. This referral assures that you have the opportunity for follow-up care with a specialist. All of these measure are taken in an effort to provide you with optimal care, which includes your follow-up. Under all circumstances we always encourage you to contact your private physician who remains a resource for coordinating your care. When calling for follow-up care, please make the office aware that this follow-up is from your recent emergency room visit. If for any reason you are refused follow-up, please contact the [facility] emergency department at and asked to speak to the emergency department charge nurse. - My Orders Last 24 Hours: My Active Orders 02/24/19 07:25 EKG Documentation Completion [RC] STAT - Assessment/Plan Last 24 Hours: My Active Orders 02/24/19 07:25 EKG Documentation Completion [RC] STAT
== END 2019-02-24 09:15 | disposition home or self-care (01) ==
LOC: MW.ED 07:08
DX: K85.90 Acute pancreatitis without necrosis or infection, unspecified (principal); E87.6 Hypokalemia; F10.20 Alcohol dependence, uncomplicated; Y90.0 Blood alcohol level of less than 20 mg/100 ml; I10 Essential (primary) hypertension; F17.210 Nicotine dependence, cigarettes, uncomplicated
CPT/HCPCS: 36415; 71045; 80053; 80320; 81003; 83690; 84484; 85025; 93005; 96361; 96374; 99284; A9270; J2405; J7040; G0480

== ENCOUNTER 2020-02-17 11:35 | Inpatient (IN) | payer MEDICARE, MEDICAID, OTHER ==
[2020-02-17] MEDS ORDERED: Sodium Chloride 0.9% 10 ML Syringe FLUSH PRN (12:18)
[2020-02-17] MEDS ORDERED: Sodium Chloride 0.9% 2.5 ML Syringe FLUSH PRN (12:18)
[2020-02-17] MEDS ORDERED: Sodium Chloride 0.9% 1,000 ML IV ONE ×2 (12:35→14:42)
--- NOTE | 2020-02-17 12:52 | EDM.PDOC ---
<Kristian Garza - Last Filed: 02/17/20 12:51> ED HPI GENERAL MEDICAL PROBLEM - General Chief Complaint: General Stated Complaint: WEAK Time Seen by Provider: 02/17/20 12:17 Generalized Pain Score (Numeric/FACES): 10 - Related Data Allergies Allergy/AdvReac Type Severity Reaction Status Date / Time No Known Allergies Allergy Verified 02/17/20 17:46 Past Medical History - Past Health History Medical/Surgical History: Denies Medical/Surgical History HEENT History: Reports: None Cardiovascular History: Reports: High Cholesterol, Hypertension Respiratory History: Reports: None Gastrointestinal History: Reports: GI Bleed Genitourinary History: Reports: None Musculoskeletal History: Reports: None Neurological History: Reports: None Psychiatric History: Reports: None Endocrine/Metabolic History: Reports: None Hematologic History: Reports: None Immunologic History: Reports: None Oncologic (Cancer) History: Reports: None Dermatologic History: Reports: None - Infectious Disease History Infectious Disease History: Reports: None - Past Surgical History Head Surgeries/Procedures: Reports: None HEENT Surgical History: Reports: None Cardiovascular Surgical History: Reports: None Respiratory Surgical History: Reports: None GI Surgical History: Reports: EGD Male Surgical History: Reports: None Endocrine Surgical History: Reports: None Neurological Surgical History: Reports: None Musculoskeletal Surgical History: Reports: None Oncologic Surgical History: Reports: None Dermatological Surgical History: Reports: None Social & Family History - Family History Family Medical History: Noncontributory - Tobacco Use Smoking Status *Q: Current Every Day Smoker Years of Tobacco use: 44 Packs/Tins Daily: 0.5 - Caffeine Use Caffeine Use: Reports: None Caffeine Use Comment: once in a while use of coffee. - Recreational Drug Use Recreational Drug Use: No EKG INTERPRETATION EKG Interpretation Comments: EKG is normal sinus rhythm rate [address]-T changes diffusely the QT interval is prolonged at 417 QTC 505 read and interpreted by me. Departure - Departure Disposition: Refer to Observation Clinical Impression: Hypokalemia - Discharge Information Sepsis Event Note (ED) - Evaluation Sepsis Screening Result: No Definite Risk <Thony Laird - Last Filed: 02/17/20 18:06> ED HPI GENERAL MEDICAL PROBLEM - General Source of Information: Reports: Patient History Limitations: Reports: No Limitations - History of Present Illness INITIAL COMMENTS - FREE TEXT/NARRATIVE: HISTORY AND PHYSICAL: History of present illness: Patient is a 64-year-old male who presents to the emergency room with complaints of generalized body ache and weakness. He states he has had symptoms for approximately 2 weeks and has had 3 syncopal events during that time. He is unable to describe the syncopal events but states he feels "so weak I just have to let myself down to the ground". He denies hitting his head or having any bodily injuries from these events. Patient denies any fever, chills, headache, change in vision, chest pain, back pain, shortness of breath or cough. Denies any abdominal pain, nausea, vomiting, diarrhea, constipation or dysuria. Has not noted any blood in urine or stool. Patient has been eating and drinking appropriately. Review of systems: As per history of present illness and below otherwise all systems reviewed and negative. Past medical history: As per history of present illness and as reviewed below otherwise noncontributory. Surgical history: As per history of present illness and as reviewed below otherwise noncontributory. Social history: See social history for further information Family history: As per history of present illness and as reviewed below otherwise noncontributory. Physical exam: General: Well developed and well nourished 64-year-old -Portuguese male. Alert and orientated x 3. Nontoxic in appearance and in no acute distress. Vital signs are stable and have been reviewed by me. Nursing notes were reviewed. HEENT: Atraumatic, normocephalic, pupils equal and reactive bilaterally, negative for conjunctival pallor or scleral icterus, mucous membranes dry/tacky, TMs normal bilaterally, throat clear, neck supple, nontender, trachea midline. No drooling or trismus noted. No meningeal signs. No hot potato voice noted. Lungs: Clear to auscultation, breath sounds equal bilaterally, chest nontender. Normal work of breathing, no accessory muscles used. Heart: S1S2, regular rate and rhythm without overt murmur Abdomen: Soft, nondistended, nontender. Negative for masses or hepatosplenomegaly. Negative for costovertebral tenderness. Skin: Intact, warm, dry. No lesions or rashes noted. Hematologic: No petechiae or purpra. Mucosa appropriate color and normal nail bed color and refill. Extremities: Atraumatic, moves all extremities per self without difficulty or deficits, negative for cords or calf pain. Neurovascular unremarkable. Neuro: Awake, alert, oriented. Cranial nerves II through XII unremarkable. Cerebellum unremarkable. Motor and sensory unremarkable throughout. Exam nonfocal. Psychiatric: Mood and affect are appropriate. Normal thought process. Answering questions appropriately. Notes: Reviewing the patient's past medical history it appears he has a history of alcohol abuse and pancreatitis. He states he does drink daily although he is able to stop drinking when needed. States his last alcoholic beverage was about 4 days ago. He has not having any symptoms of tremors, hallucinations or agitation. I do not feel he needs any treatment for withdrawals/detox. He is agreeable to lab work. Patient appears dehydrated; will give IV fluids. Due to the patient's falls, will add head CT along with cardiac work-up. Head CT and chest x-ray are unremarkable. Patient does have significant hypokalemia. I have spoken with the patient/caregiver and discussed today's findings, in addition to providing specific details for plan of care. His vital signs remained stable although he says he feels very weak. Patient will be admitted for IV fluid and potassium replacement. He is agreeable. Dr. Carmona, hospitalist on-call was consulted on this case. He is agreeable that patient will be admitted for observation with telemetry. Diagnostics: CBC, CMP, lipase, troponin, EKG, chest x-ray, head CT, [employer]: IV fluid Impression: Hypokalemia Plan: Observation admission with telemetry to [facility] Definitive disposition and diagnosis as appropriate pending reevaluation and review of above. ED ROS GENERAL - Review of Systems Review Of Systems: Comprehensive ROS is negative, except as noted in HPI. ED EXAM, GENERAL - Physical Exam Exam: See Below (See dictation) Course - Vital Signs Last Recorded V/S: Last Vital Signs Temp 97.2 F 02/17/20 17:33 Pulse 91 02/17/20 17:33 Resp 16 02/17/20 16:28 BP 131/97 H 02/17/20 17:33 Pulse Ox 97 02/17/20 17:33 Orthostatic Blood Pressure [ 91/45 Standing] Orthostatic Blood Pressure [ 110/74 Sitting] Orthostatic Blood Pressure [ 126/81 Supine] - Orders/Labs/Meds Orders: Active Orders 24 hr Category Date Time Status EKG Documentation Completion [RC] STAT Care 02/17/20 12:18 Active Orthostatic Vital Signs [RC] ASDIRECTED Care 02/17/20 12:35 Active Potassium Chloride Riders [KCL 40 MEQ in Water 100 ML] Med 02/17/20 14:41 Active 40 meq Premix Bag 1 bag IV ONETIME Sodium Chloride 0.9% [Normal Saline] 1,000 ml Med 02/17/20 14:42 Active IV STAT Sodium Chloride 0.9% [Normal Saline] 500 ml Med 02/17/20 15:00 Active IV ONETIME Sodium Chloride 0.9% [Saline Flush] Med 02/17/20 12:18 Active 10 ml FLUSH ASDIRECTED PRN Sodium Chloride 0.9% [Saline Flush] Med 02/17/20 12:18 Active 2.5 ml FLUSH ASDIRECTED PRN Saline Lock Insert [OM.PC] Stat Oth 02/17/20 12:18 Ordered Medication Orders Folic Acid (Folic Acid) 1 mg IV DAILY MARCEL Potassium Chloride 40 meq/ (Premix) 100 mls @ 25 mls/hr IV ONETIME ONE Stop: 02/17/20 18:40 Last Admin: 02/17/20 15:05 Dose: 25 mls/hr Documented by: MURDNIC Sodium Chloride (Normal Saline) 1,000 mls @ 125 mls/hr IV STAT ONE Stop: 02/17/20 22:41 Sodium Chloride (Normal Saline) 500 mls @ 125 mls/hr IV ONETIME ONE Stop: 02/17/20 18:59 Last Admin: 02/17/20 15:43 Dose: 125 mls/hr Documented by: MURDNIC Thiamine HCl 100 mg/ Sodium (Chloride) 101 mls @ 202 mls/hr IV DAILY MARCEL Lorazepam (Ativan) 0 mg IVPUSH Q4H PRN; Protocol PRN Reason: CIWAA Ondansetron HCl (Zofran) 4 mg IVPUSH Q4H PRN PRN Reason: Nausea Sodium Chloride (Saline Flush) 10 ml FLUSH ASDIRECTED PRN PRN Reason: Keep Vein Open Last Admin: 02/17/20 12:57 Dose: 10 ml Documented by: MURDNIC Sodium Chloride (Saline Flush) 2.5 ml FLUSH ASDIRECTED PRN PRN Reason: Keep Vein Open Last Admin: 02/17/20 12:57 Dose: 2.5 ml Documented by: MURDNIC Sodium Phosphate (Neutra-Phos) 250 mg PO QID [facility] Labs: Laboratory Tests 02/17/20 02/17/20 02/17/20 Range/Units 13:58 13:58 13:58 WBC 7.01 (4.0-11.0) K/uL RBC 3.98 L (4.50-5.90) M/uL Hgb 12.9 L (13.0-17.0) g/dL Hct 36.3 L (38.0-50.0) % MCV 91.2 (80.0-98.0) fL MCH 32.4 H (27.0-32.0) pg MCHC 35.5 (31.0-37.0) g/dL RDW Std Deviation 44.6 (28.0-62.0) fl RDW Coeff of Stephane 14 (11.0-15.0) % Plt Count 91 L (150-400) K/uL MPV 13.10 H (7.40-12.00) fL Neut % (Auto) 66.1 (48.0-80.0) % Lymph % (Auto) 22.1 (16.0-40.0) % [place] % (Auto) 11.6 (0.0-15.0) % Eos % (Auto) 0.1 (0.0-7.0) % Baso % (Auto) 0.1 (0.0-1.5) % Neut # (Auto) 4.6 (1.4-5.7) K/uL Lymph # (Auto) 1.6 (0.6-2.4) K/uL [place] # (Auto) 0.8 (0.0-0.8) K/uL Eos # (Auto) 0.0 (0.0-0.7) K/uL Baso # (Auto) 0.0 (0.0-0.1) K/uL Nucleated RBC % 0.0 /100WBC Nucleated RBCs # 0 K/uL Sodium 136 (136-148) mmol/L Potassium 2.2 L* (3.5-5.1) mmol/L Chloride 93 L (98-107) mmol/L Carbon Dioxide 24.9 (21.0-32.0) mmol/L BUN 16 (7.0-18.0) mg/dL Creatinine 1.1 (0.8-1.3) mg/dL Est Cr Clr Drug Dosing 66.95 mL/min Estimated GFR (MDRD) > 60.0 ml/min Glucose 142 H (74-106) mg/dL Calcium 10.0 (8.5-10.1) mg/dL Phosphorus (2.6-4.7) mg/dL Magnesium (1.8-2.4) mg/dL Total Bilirubin 2.2 H (0.2-1.0) mg/dL AST 111 H (15-37) IU/L ALT 23 (14-63) IU/L Alkaline Phosphatase 72 (46-116) U/L Creatine Kinase (26-308) U/L Troponin I < 0.050 (0.000-0.056) ng/mL Total Protein 8.3 H (6.4-8.2) g/dL Albumin 4.4 (3.4-5.0) g/dL Globulin 3.9 (2.6-4.0) g/dL Albumin/Globulin Ratio 1.1 (0.9-1.6) Lipase 114 (73-393) U/L Ethyl Alcohol 3 mg/dL SARS-CoV-2 RNA (EMANI) (NEGATIVE) 02/17/20 02/17/20 02/17/20 Range/Units 13:58 13:58 14:08 WBC (4.0-11.0) K/uL RBC (4.50-5.90) M/uL Hgb (13.0-17.0) g/dL Hct (38.0-50.0) % MCV (80.0-98.0) fL MCH (27.0-32.0) pg MCHC (31.0-37.0) g/dL RDW Std Deviation (28.0-62.0) fl RDW Coeff of Stephane (11.0-15.0) % Plt Count (150-400) K/uL MPV (7.40-12.00) fL Neut % (Auto) (48.0-80.0) % Lymph % (Auto) (16.0-40.0) % [place] % (Auto) (0.0-15.0) % Eos % (Auto) (0.0-7.0) % Baso % (Auto) (0.0-1.5) % Neut # (Auto) (1.4-5.7) K/uL Lymph # (Auto) (0.6-2.4) K/uL [place] # (Auto) (0.0-0.8) K/uL Eos # (Auto) (0.0-0.7) K/uL Baso # (Auto) (0.0-0.1) K/uL Nucleated RBC % /100WBC Nucleated RBCs # K/uL Sodium (136-148) mmol/L Potassium (3.5-5.1) mmol/L Chloride (98-107) mmol/L Carbon Dioxide (21.0-32.0) mmol/L BUN (7.0-18.0) mg/dL Creatinine (0.8-1.3) mg/dL Est Cr Clr Drug Dosing mL/min Estimated GFR (MDRD) ml/min Glucose (74-106) mg/dL Calcium (8.5-10.1) mg/dL Phosphorus 1.6 L (2.6-4.7) mg/dL Magnesium 1.8 (1.8-2.4) mg/dL Total Bilirubin (0.2-1.0) mg/dL AST (15-37) IU/L ALT (14-63) IU/L Alkaline Phosphatase (46-116) U/L Creatine Kinase 380 H (26-308) U/L Troponin I (0.000-0.056) ng/mL Total Protein (6.4-8.2) g/dL Albumin (3.4-5.0) g/dL Globulin (2.6-4.0) g/dL Albumin/Globulin Ratio (0.9-1.6) Lipase (73-393) U/L Ethyl Alcohol mg/dL SARS-CoV-2 RNA (EMANI) NEGATIVE (NEGATIVE) Meds: Medications Generic Name Dose Route Start Last Admin Trade Name Freq PRN Reason Stop Dose Admin Folic Acid 1 mg 02/17/20 16:45 Folic Acid IV DAILY MARCEL Potassium Chloride 40 meq/ 100 mls @ 25 mls/hr 02/17/20 14:41 02/17/20 15:05 Premix IV 02/17/20 18:40 25 mls/hr ONETIME ONE Administration Sodium Chloride 1,000 mls @ 125 mls/hr 02/17/20 14:42 Normal Saline IV 02/17/20 22:41 STAT ONE Sodium Chloride 500 mls @ 125 mls/hr 02/17/20 15:00 02/17/20 15:43 Normal Saline IV 02/17/20 18:59 125 mls/hr ONETIME ONE Administration Thiamine HCl 100 mg/ Sodium 101 mls @ 202 mls/hr 02/17/20 16:45 Chloride IV DAILY MARCEL Lorazepam 0 mg 02/17/20 16:38 Ativan IVPUSH Q4H PRN CIWAA Protocol Ondansetron HCl 4 mg 02/17/20 16:41 Zofran IVPUSH Q4H PRN Nausea Sodium Chloride 10 ml 02/17/20 12:18 02/17/20 12:57 Saline Flush FLUSH 10 ml ASDIRECTED PRN Administration Keep Vein Open Sodium Chloride 2.5 ml 02/17/20 12:18 02/17/20 12:57 Saline Flush FLUSH 2.5 ml ASDIRECTED PRN Administration Keep Vein Open Sodium Phosphate 250 mg 02/17/20 18:00 Neutra-Phos PO QID MARCEL Discontinued Medications Generic Name Dose Route Start Last Admin Trade Name Freq PRN Reason Stop Dose Admin Sodium Chloride 1,000 mls @ 999 mls/hr 02/17/20 12:35 02/17/20 12:58 Normal Saline IV 02/17/20 13:35 999 mls/hr STAT ONE Administration Potassium Chloride 40 meq 02/17/20 14:43 02/17/20 15:06 Klor-Con M20 PO 02/17/20 14:44 40 meq ONETIME ONE Administration Potassium Chloride 40 meq 02/17/20 16:38 Klor-Con M20 PO 02/17/20 16:39 ONETIME ONE Departure - Departure Time of Disposition: 18:06 Sepsis Event Note (ED) - Focused Exam Vital Signs: Vital Signs Temp Pulse Resp BP Pulse Ox 02/17/20 14:58 82 125/80 99 02/17/20 14:28 79 139/88 99 02/17/20 13:36 97 115/82 99 02/17/20 12:30 96.9 F 106 H 18 118/83 100 - My Orders Last 24 Hours: My Active Orders 02/17/20 12:18 EKG Documentation Completion [RC] STAT Sodium Chloride 0.9% [Saline Flush] 10 ml FLUSH ASDIRECTED PRN Sodium Chloride 0.9% [Saline Flush] 2.5 ml FLUSH ASDIRECTED PRN Saline Lock Insert [OM.PC] Stat 02/17/20 12:35 Orthostatic Vital Signs [RC] ASDIRECTED 02/17/20 14:41 Potassium Chloride Riders [KCL 40 MEQ in Water 100 ML] 40 meq Premix Bag 1 bag IV ONETIME 02/17/20 14:42 Sodium Chloride 0.9% [Normal Saline] 1,000 ml IV STAT 02/17/20 15:00 Sodium Chloride 0.9% [Normal Saline] 500 ml IV ONETIME - Assessment/Plan Last 24 Hours: My Active Orders 02/17/20 12:18 EKG Documentation Completion [RC] STAT Sodium Chloride 0.9% [Saline Flush] 10 ml FLUSH ASDIRECTED PRN Sodium Chloride 0.9% [Saline Flush] 2.5 ml FLUSH ASDIRECTED PRN Saline Lock Insert [OM.PC] Stat 02/17/20 12:35 Orthostatic Vital Signs [RC] ASDIRECTED 02/17/20 14:41 Potassium Chloride Riders [KCL 40 MEQ in Water 100 ML] 40 meq Premix Bag 1 bag IV ONETIME 02/17/20 14:42 Sodium Chloride 0.9% [Normal Saline] 1,000 ml IV STAT 02/17/20 15:00 Sodium Chloride 0.9% [Normal Saline] 500 ml IV ONETIME
--- NOTE | 2020-02-17 13:56 | CR ---
INDICATION: Weakness. COMPARISON: 24 February 2019. IMPRESSION: No acute cardiopulmonary disease. No fracture. Pulmonary vascularity and cardiomediastinal silhouette are normal. Prior nodular density at the left base not appear currently suggesting it was previously nipple shadow. Dictated by Dong Ceballos MD @ Feb 17 2020 1:55PM Signed by Dr. Dong Ceballos @ Feb 17 2020 1:56PM
--- NOTE | 2020-02-17 14:05 | CT ---
INDICATION: Weakness. COMPARISON: None. TECHNIQUE: CT of the head without IV contrast. Coronal and sagittal reconstructions are provided. FINDINGS: No intracranial hemorrhage, mass effect, or evidence of acute infarct. No midline shift. No abnormal extra-axial fluid collections. Mild generalized cerebral and cerebellar volume loss. Normal caliber ventricular system. The visualized paranasal sinuses and mastoid air cells are clear. No acute fracture. Soft tissues are unremarkable. IMPRESSION: : No acute intracranial findings. Please note that all CT scans at this facility use dose modulation, iterative reconstruction, and/or weight-based dosing when appropriate to reduce radiation dose to as low as reasonably achievable. Dictated by Pam Winters MD @ Feb 17 2020 1:57PM Signed by Dr. Pam Winters @ Feb 17 2020 2:03PM
[2020-02-17 14:31] LABS: BLOOD UREA NITROGEN,BUN 16 mg/dL (7.0-18.0); CARBON DIOXIDE,CO2 24.9 mmol/L (21.0-32.0); CHLORIDE,CL 93 mmol/L (98-107); GLUCOSE RANDOM 142 mg/dL (74-106); LIPASE 114 U/L (73-393); SODIUM,NA 136 mmol/L (136-148)
[2020-02-17 14:41] LABS: POTASSIUM,K 2.2 mmol/L (3.5-5.1)
[2020-02-17] MEDS ORDERED: Potassium Chloride Riders 40 MEQ in Premix Bag 1 BAG IV ONE (14:41)
[2020-02-17] MEDS ORDERED: Potassium Chloride 20 MEQ Tab.ER PO ONE ×3 (14:43→22:02)
[2020-02-17] MEDS ORDERED: Sodium Chloride 0.9% 500 ML IV ONE (15:00)
[2020-02-17] MEDS ORDERED: LORazepam 2 MG/ML SDV IVPUSH PRN (16:38)
[2020-02-17] MEDS ORDERED: Ondansetron 4 MG/2 ML SDV IVPUSH PRN (16:41)
[2020-02-17] MEDS ORDERED: Thiamine 100 MG in Sodium Chloride 0.9% 100 ML IV SCH (16:45)
--- NOTE | 2020-02-17 16:49 | PCM.HP.2 ---
H&P History of Present Illness - General Date of Service: 02/17/20 Admit Problem/Dx: Admission Diagnosis/Problem Admission Diagnosis/Problem Hypokalemia - History of Present Illness Initial Comments - Free Text/Narative: 64 yo male who presented to the ED with complaint of generalized weakness for past several weeks. Patient reports he has been falling at home. States his legs give out with him. He denies any shortness of breath, diarrhea, fevers, chills, tremors, or chest pain. Patient reports he drinks whiskey daily but has not any ETOH in four days. Generalized Pain Score (Numeric/FACES): 10 - Related Data Allergies/Adverse Reactions: Allergies Allergy/AdvReac Type Severity Reaction Status Date / Time No Known Allergies Allergy Verified 02/17/20 17:46 Past Medical History - Past Health History Medical/Surgical History: Denies Medical/Surgical History HEENT History: Reports: None Cardiovascular History: Reports: High Cholesterol, Hypertension Respiratory History: Reports: None Gastrointestinal History: Reports: GI Bleed Genitourinary History: Reports: None Musculoskeletal History: Reports: None Neurological History: Reports: None Psychiatric History: Reports: None Endocrine/Metabolic History: Reports: None Hematologic History: Reports: None Immunologic History: Reports: None Oncologic (Cancer) History: Reports: None Dermatologic History: Reports: None - Infectious Disease History Infectious Disease History: Reports: None - Past Surgical History Head Surgeries/Procedures: Reports: None HEENT Surgical History: Reports: None Cardiovascular Surgical History: Reports: None Respiratory Surgical History: Reports: None GI Surgical History: Reports: EGD Male Surgical History: Reports: None Endocrine Surgical History: Reports: None Neurological Surgical History: Reports: None Musculoskeletal Surgical History: Reports: None Oncologic Surgical History: Reports: None Dermatological Surgical History: Reports: None Social & Family History - Family History Family Medical History: Noncontributory - Tobacco Use Smoking Status *Q: Current Every Day Smoker Years of Tobacco use: 44 Packs/Tins Daily: 0.5 - Caffeine Use Caffeine Use: Reports: None Caffeine Use Comment: once in a while use of coffee. - Recreational Drug Use Recreational Drug Use: No H&P Review of Systems - Review of Systems: Review Of Systems: Comprehensive ROS is negative, except as noted in HPI. Exam - Exam Exam: See Below - Vital Signs Vital Signs: Last Vital Signs Temp 36.1 C 02/17/20 12:30 Pulse 73 02/17/20 15:50 Resp 14 02/17/20 15:50 BP 117/76 02/17/20 15:50 Pulse Ox 97 02/17/20 15:50 Orthostatic Blood Pressure [ 91/45 Standing] Orthostatic Blood Pressure [ 110/74 Sitting] Orthostatic Blood Pressure [ 126/81 Supine] Weight: 72.575 kg - Exam General: Alert, Oriented HEENT: Mucosa Moist & [place] Neck: Supple Lungs: Clear to Auscultation, Normal Respiratory Effort Cardiovascular: Regular Rate, Regular Rhythm GI/Abdominal Exam: Normal Bowel Sounds, Soft Extremities: Normal Inspection, Non-Tender, No Pedal Edema Skin: Warm, Dry, Intact Neurological: Cranial Nerves Intact, Reflexes Equal Bilateral, Strength Equal Bilateral, Normal Speech, Normal Tone. No: Focal Deficit - Patient Data Lab Results Last 24 hrs: Laboratory Results - last 24 hr 02/17/20 02/17/20 02/17/20 Range/Units 13:58 13:58 13:58 WBC 7.01 (4.0-11.0) K/uL RBC 3.98 L (4.50-5.90) M/uL Hgb 12.9 L (13.0-17.0) g/dL Hct 36.3 L (38.0-50.0) % MCV 91.2 (80.0-98.0) fL MCH 32.4 H (27.0-32.0) pg MCHC 35.5 (31.0-37.0) g/dL RDW Std Deviation 44.6 (28.0-62.0) fl RDW Coeff of Stephane 14 (11.0-15.0) % Plt Count 91 L (150-400) K/uL MPV 13.10 H (7.40-12.00) fL Neut % (Auto) 66.1 (48.0-80.0) % Lymph % (Auto) 22.1 (16.0-40.0) % [place] % (Auto) 11.6 (0.0-15.0) % Eos % (Auto) 0.1 (0.0-7.0) % Baso % (Auto) 0.1 (0.0-1.5) % Neut # (Auto) 4.6 (1.4-5.7) K/uL Lymph # (Auto) 1.6 (0.6-2.4) K/uL [place] # (Auto) 0.8 (0.0-0.8) K/uL Eos # (Auto) 0.0 (0.0-0.7) K/uL Baso # (Auto) 0.0 (0.0-0.1) K/uL Nucleated RBC % 0.0 /100WBC Nucleated RBCs # 0 K/uL Sodium 136 (136-148) mmol/L Potassium 2.2 L* (3.5-5.1) mmol/L Chloride 93 L (98-107) mmol/L Carbon Dioxide 24.9 (21.0-32.0) mmol/L BUN 16 (7.0-18.0) mg/dL Creatinine 1.1 (0.8-1.3) mg/dL Est Cr Clr Drug Dosing 66.95 mL/min Estimated GFR (MDRD) > 60.0 ml/min Glucose 142 H (74-106) mg/dL Calcium 10.0 (8.5-10.1) mg/dL Total Bilirubin 2.2 H (0.2-1.0) mg/dL AST 111 H (15-37) IU/L ALT 23 (14-63) IU/L Alkaline Phosphatase 72 (46-116) U/L Troponin I < 0.050 (0.000-0.056) ng/mL Total Protein 8.3 H (6.4-8.2) g/dL Albumin 4.4 (3.4-5.0) g/dL Globulin 3.9 (2.6-4.0) g/dL Albumin/Globulin Ratio 1.1 (0.9-1.6) Lipase 114 (73-393) U/L Ethyl Alcohol 3 mg/dL SARS-CoV-2 RNA (EMANI) (NEGATIVE) 02/17/20 Range/Units 14:08 WBC (4.0-11.0) K/uL RBC (4.50-5.90) M/uL Hgb (13.0-17.0) g/dL Hct (38.0-50.0) % MCV (80.0-98.0) fL MCH (27.0-32.0) pg MCHC (31.0-37.0) g/dL RDW Std Deviation (28.0-62.0) fl RDW Coeff of Stephane (11.0-15.0) % Plt Count (150-400) K/uL MPV (7.40-12.00) fL Neut % (Auto) (48.0-80.0) % Lymph % (Auto) (16.0-40.0) % [place] % (Auto) (0.0-15.0) % Eos % (Auto) (0.0-7.0) % Baso % (Auto) (0.0-1.5) % Neut # (Auto) (1.4-5.7) K/uL Lymph # (Auto) (0.6-2.4) K/uL [place] # (Auto) (0.0-0.8) K/uL Eos # (Auto) (0.0-0.7) K/uL Baso # (Auto) (0.0-0.1) K/uL Nucleated RBC % /100WBC Nucleated RBCs # K/uL Sodium (136-148) mmol/L Potassium (3.5-5.1) mmol/L Chloride (98-107) mmol/L Carbon Dioxide (21.0-32.0) mmol/L BUN (7.0-18.0) mg/dL Creatinine (0.8-1.3) mg/dL Est Cr Clr Drug Dosing mL/min Estimated GFR (MDRD) ml/min Glucose (74-106) mg/dL Calcium (8.5-10.1) mg/dL Total Bilirubin (0.2-1.0) mg/dL AST (15-37) IU/L ALT (14-63) IU/L Alkaline Phosphatase (46-116) U/L Troponin I (0.000-0.056) ng/mL Total Protein (6.4-8.2) g/dL Albumin (3.4-5.0) g/dL Globulin (2.6-4.0) g/dL Albumin/Globulin Ratio (0.9-1.6) Lipase (73-393) U/L Ethyl Alcohol mg/dL SARS-CoV-2 RNA (EMANI) NEGATIVE (NEGATIVE) Result Diagrams: 02/19/20 05:15 02/19/20 05:15 Sepsis Event Note - Evaluation Sepsis Screening Result: No Definite Risk - Focused Exam Vital Signs: Vital Signs Temp Pulse Resp BP Pulse Ox 02/17/20 15:50 73 14 117/76 97 02/17/20 14:58 82 125/80 99 02/17/20 14:28 79 139/88 99 02/17/20 13:36 97 115/82 99 02/17/20 12:30 36.1 C 106 H 18 118/83 100 Problem List Initiated/Reviewed/Updated: Yes Orders Last 24hrs: Active Orders 24 hr Category Date Time Status Admission Status [Patient Status] [ADT] Stat ADT 02/17/20 15:34 Active Antiembolic Devices [RC] PER UNIT ROUTINE Care 02/17/20 16:43 Ordered EKG Documentation Completion [RC] STAT Care 02/17/20 12:18 Active Orthostatic Vital Signs [RC] ASDIRECTED Care 02/17/20 12:35 Active Oxygen Therapy [RC] PRN Care 02/17/20 16:41 Ordered VTE/DVT Education [RC] PER UNIT ROUTINE Care 02/17/20 16:41 Ordered Vital Signs [RC] Q4H Care 02/17/20 16:41 Ordered Regular Diet [DIET] Diet 02/17/20 Breakfast Ordered BASIC METABOLIC PANEL,BMP [CHEM] Routine Lab 02/17/20 20:00 Ordered CBC WITH AUTO DIFF [HEME] AM Lab 02/18/20 05:11 Ordered CBC WITH AUTO DIFF [HEME] AM Lab 02/19/20 05:11 Ordered CBC WITH AUTO DIFF [HEME] AM Lab 02/20/20 05:11 Ordered COMPREHENSIVE METABOLIC PN,CMP [CHEM] AM Lab 02/18/20 05:11 Ordered COMPREHENSIVE METABOLIC PN,CMP [CHEM] AM Lab 02/19/20 05:11 Ordered COMPREHENSIVE METABOLIC PN,CMP [CHEM] AM Lab 02/20/20 05:11 Ordered CPK [CREATINE KINASE,CK] [CHEM] Routine Lab 02/17/20 16:43 Ordered DRUG SCREEN, URINE [URCHEM] Routine Lab 02/17/20 16:41 Ordered MAGNESIUM [CHEM] Routine Lab 02/17/20 16:36 Ordered PHOSPHORUS [CHEM] Routine Lab 02/17/20 16:36 Ordered UA RFX LEO AND CULT IF INDIC [URIN] Routine Lab 02/17/20 16:40 Ordered Folic Acid Med 02/17/20 16:45 Ordered 1 mg IV DAILY LORazepam [Ativan] Med 02/17/20 16:38 Ordered See Protocol IVPUSH Q4H PRN Ondansetron [Zofran] Med 02/17/20 16:41 Ordered 4 mg IVPUSH Q4H PRN Potassium Chloride Riders [KCL 40 MEQ in Water 100 ML] Med 02/17/20 14:41 Active 40 meq Premix Bag 1 bag IV ONETIME Sodium Chloride 0.9% [Normal Saline] 1,000 ml Med 02/17/20 14:42 Active IV STAT Sodium Chloride 0.9% [Normal Saline] 500 ml Med 02/17/20 15:00 Active IV ONETIME Sodium Chloride 0.9% [Saline Flush] Med 02/17/20 12:18 Active 10 ml FLUSH ASDIRECTED PRN Sodium Chloride 0.9% [Saline Flush] Med 02/17/20 12:18 Active 2.5 ml FLUSH ASDIRECTED PRN Thiamine [Vitamin B-1] 100 mg Med 02/17/20 16:45 Ordered Sodium Chloride 0.9% [Normal Saline] 100 ml IV DAILY Saline Lock Insert [OM.PC] Stat Oth 02/17/20 12:18 Ordered Sequential Compression Device [OM.PC] Per Unit Routine Oth 02/17/20 16:42 Ordered Resuscitation Status Routine Resus Stat 02/17/20 16:41 Ordered Medication Orders Folic Acid (Folic Acid) 1 mg IV DAILY MARCEL Potassium Chloride 40 meq/ (Premix) 100 mls @ 25 mls/hr IV ONETIME ONE Stop: 02/17/20 18:40 Last Admin: 02/17/20 15:05 Dose: 25 mls/hr Documented by: MURDNIC Sodium Chloride (Normal Saline) 1,000 mls @ 125 mls/hr IV STAT ONE Stop: 02/17/20 22:41 Sodium Chloride (Normal Saline) 500 mls @ 125 mls/hr IV ONETIME ONE Stop: 02/17/20 18:59 Last Admin: 02/17/20 15:43 Dose: 125 mls/hr Documented by: MURDNIC Thiamine HCl 100 mg/ Sodium (Chloride) 101 mls @ 202 mls/hr IV DAILY MARCEL Lorazepam (Ativan) 0 mg IVPUSH Q4H PRN; Protocol PRN Reason: CIWAA Ondansetron HCl (Zofran) 4 mg IVPUSH Q4H PRN PRN Reason: Nausea Sodium Chloride (Saline Flush) 10 ml FLUSH ASDIRECTED PRN PRN Reason: Keep Vein Open Last Admin: 02/17/20 12:57 Dose: 10 ml Documented by: WOO Sodium Chloride (Saline Flush) 2.5 ml FLUSH ASDIRECTED PRN PRN Reason: Keep Vein Open Last Admin: 02/17/20 12:57 Dose: 2.5 ml Documented by: WOO Assessment/Plan Comment:: 64 yo male admitted [facility] due to ETOH abuse. We Will check Magnesium, phosphate, and CPK. We will replace potassium, treat with thiamine and folic acid and ativan prn CIWAA protocol.
[2020-02-17] MEDS: Phosphorus #1 250 MG Tab PO SCH ×2 (18:47→23:05)
[2020-02-17 20:42] LABS: BLOOD UREA NITROGEN,BUN 17 mg/dL (7.0-18.0); CARBON DIOXIDE,CO2 24.6 mmol/L (21.0-32.0); CHLORIDE,CL 97 mmol/L (98-107); GLUCOSE RANDOM 185 mg/dL (74-106); POTASSIUM,K 2.9 mmol/L (3.5-5.1); SODIUM,NA 137 mmol/L (136-148)
[2020-02-17] MEDS ORDERED: Sodium Chloride 0.9% with KCl 1,000 ML IV SCH (22:00)
[2020-02-18] MEDS: Folic Acid 50 MG/10 ML MDV IV SCH ×2 (04:31→10:02)
[2020-02-18] MEDS: Phosphorus #1 250 MG Tab PO SCH ×4 (06:22→23:20)
[2020-02-18 06:33] LABS: BLOOD UREA NITROGEN,BUN 13 mg/dL (7.0-18.0); CARBON DIOXIDE,CO2 24.6 mmol/L (21.0-32.0); CHLORIDE,CL 102 mmol/L (98-107); GLUCOSE RANDOM 149 mg/dL (74-106); POTASSIUM,K 2.6 mmol/L (3.5-5.1); SODIUM,NA 139 mmol/L (136-148)
[2020-02-18] MEDS ORDERED: Magnesium Sulfate/Water 4 GM in Premix Bag 1 BAG IV ONE (08:27)
[2020-02-18] MEDS ORDERED: Sodium Chloride 0.9% with KCl 1,000 ML IV ONE (08:36)
[2020-02-18] MEDS: Potassium Chloride 20 MEQ Tab.ER PO SCH ×2 (10:01→12:18)
--- NOTE | 2020-02-18 11:08 | PCM.PN ---
- General Info Date of Service: 02/18/20 Admission Dx/Problem (Free Text): Admission Diagnosis/Problem Admission Diagnosis/Problem Hypokalemia Subjective Update: Not feeling well this morning, reports he can't walk well. and feels weak all over. No chest pain or SOB. eating breakfast well. - Review of Systems General: Reports: Weakness (generalized). Denies: Fatigue, Malaise Pulmonary: Reports: No Symptoms. Denies: Shortness of Breath Cardiovascular: Reports: No Symptoms. Denies: Chest Pain Gastrointestinal: Reports: No Symptoms. Denies: Abdominal Pain, Nausea, Vomiting Genitourinary: Reports: No Symptoms Musculoskeletal: Reports: No Symptoms Neurological: Reports: Difficulty Walking, Weakness Psychiatric: Reports: No Symptoms - Patient Data Vitals - Most Recent: Last Vital Signs Temp 97.3 F 02/18/20 08:00 Pulse 107 H 02/18/20 08:00 Resp 16 02/18/20 08:00 BP 131/91 H 02/18/20 08:00 Pulse Ox 100 02/18/20 08:00 Orthostatic Blood Pressure [ 91/45 Standing] Orthostatic Blood Pressure [ 110/74 Sitting] Orthostatic Blood Pressure [ 126/81 Supine] Weight - Most Recent: 62.777 kg I&O - Last 24 Hours: Intake & Output 02/17/20 02/18/20 02/18/20 22:59 06:59 14:59 Intake Total 300 100 Output Total 400 Balance -100 100 Lab Results Last 24 Hours: Laboratory Results - last 24 hr 02/17/20 02/17/20 02/17/20 Range/Units 13:58 13:58 13:58 WBC 7.01 (4.0-11.0) K/uL RBC 3.98 L (4.50-5.90) M/uL Hgb 12.9 L (13.0-17.0) g/dL Hct 36.3 L (38.0-50.0) % MCV 91.2 (80.0-98.0) fL MCH 32.4 H (27.0-32.0) pg MCHC 35.5 (31.0-37.0) g/dL RDW Std Deviation 44.6 (28.0-62.0) fl RDW Coeff of Stephane 14 (11.0-15.0) % Plt Count 91 L (150-400) K/uL MPV 13.10 H (7.40-12.00) fL Neut % (Auto) 66.1 (48.0-80.0) % Lymph % (Auto) 22.1 (16.0-40.0) % [place] % (Auto) 11.6 (0.0-15.0) % Eos % (Auto) 0.1 (0.0-7.0) % Baso % (Auto) 0.1 (0.0-1.5) % Neut # (Auto) 4.6 (1.4-5.7) K/uL Lymph # (Auto) 1.6 (0.6-2.4) K/uL [place] # (Auto) 0.8 (0.0-0.8) K/uL Eos # (Auto) 0.0 (0.0-0.7) K/uL Baso # (Auto) 0.0 (0.0-0.1) K/uL Nucleated RBC % 0.0 /100WBC Nucleated RBCs # 0 K/uL Sodium 136 (136-148) mmol/L Potassium 2.2 L* (3.5-5.1) mmol/L Chloride 93 L (98-107) mmol/L Carbon Dioxide 24.9 (21.0-32.0) mmol/L BUN 16 (7.0-18.0) mg/dL Creatinine 1.1 (0.8-1.3) mg/dL Est Cr Clr Drug Dosing 66.95 mL/min Estimated GFR (MDRD) > 60.0 ml/min Glucose 142 H (74-106) mg/dL Calcium 10.0 (8.5-10.1) mg/dL Phosphorus (2.6-4.7) mg/dL Magnesium (1.8-2.4) mg/dL Total Bilirubin 2.2 H (0.2-1.0) mg/dL AST 111 H (15-37) IU/L ALT 23 (14-63) IU/L Alkaline Phosphatase 72 (46-116) U/L Creatine Kinase (26-308) U/L Troponin I < 0.050 (0.000-0.056) ng/mL Total Protein 8.3 H (6.4-8.2) g/dL Albumin 4.4 (3.4-5.0) g/dL Globulin 3.9 (2.6-4.0) g/dL Albumin/Globulin Ratio 1.1 (0.9-1.6) Lipase 114 (73-393) U/L Urine Color Urine Appearance Urine pH (5.0-8.0) Ur Specific [place] (1.001-1.035) Urine Protein (NEGATIVE) mg/dL Urine Glucose (UA) (NEGATIVE) mg/dL Urine Ketones (NEGATIVE) mg/dL Urine Occult Blood (NEGATIVE) Urine Nitrite (NEGATIVE) Urine Bilirubin (NEGATIVE) Urine Ictotest Urine Urobilinogen (<2.0) EU/dL Ur Leukocyte Esterase (NEGATIVE) Urine RBC (0-2/HPF) Urine WBC (0-5/HPF) Ur Epithelial Cells (NONE-FEW) Urine Bacteria (NEGATIVE) Urine Mucus (NONE-MOD) Urine Opiates Screen (NEGATIVE) Ur Oxycodone Screen (NEGATIVE) Urine Methadone Screen (NEGATIVE) Ur Barbiturates Screen (NEGATIVE) Ur Phencyclidine Scrn (NEGATIVE) Ur Amphetamine Screen (NEGATIVE) U Methamphetamines Scrn (NEGATIVE) U Benzodiazepines Scrn (NEGATIVE) U Cocaine Metab Screen (NEGATIVE) U Marijuana (THC) Screen (NEGATIVE) Ethyl Alcohol 3 mg/dL SARS-CoV-2 RNA (EMANI) (NEGATIVE) 02/17/20 02/17/20 02/17/20 Range/Units 13:58 13:58 14:08 WBC (4.0-11.0) K/uL RBC (4.50-5.90) M/uL Hgb (13.0-17.0) g/dL Hct (38.0-50.0) % MCV (80.0-98.0) fL MCH (27.0-32.0) pg MCHC (31.0-37.0) g/dL RDW Std Deviation (28.0-62.0) fl RDW Coeff of Stephane (11.0-15.0) % Plt Count (150-400) K/uL MPV (7.40-12.00) fL Neut % (Auto) (48.0-80.0) % Lymph % (Auto) (16.0-40.0) % [place] % (Auto) (0.0-15.0) % Eos % (Auto) (0.0-7.0) % Baso % (Auto) (0.0-1.5) % Neut # (Auto) (1.4-5.7) K/uL Lymph # (Auto) (0.6-2.4) K/uL [place] # (Auto) (0.0-0.8) K/uL Eos # (Auto) (0.0-0.7) K/uL Baso # (Auto) (0.0-0.1) K/uL Nucleated RBC % /100WBC Nucleated RBCs # K/uL Sodium (136-148) mmol/L Potassium (3.5-5.1) mmol/L Chloride (98-107) mmol/L Carbon Dioxide (21.0-32.0) mmol/L BUN (7.0-18.0) mg/dL Creatinine (0.8-1.3) mg/dL Est Cr Clr Drug Dosing mL/min Estimated GFR (MDRD) ml/min Glucose (74-106) mg/dL Calcium (8.5-10.1) mg/dL Phosphorus 1.6 L (2.6-4.7) mg/dL Magnesium 1.8 (1.8-2.4) mg/dL Total Bilirubin (0.2-1.0) mg/dL AST (15-37) IU/L ALT (14-63) IU/L Alkaline Phosphatase (46-116) U/L Creatine Kinase 380 H (26-308) U/L Troponin I (0.000-0.056) ng/mL Total Protein (6.4-8.2) g/dL Albumin (3.4-5.0) g/dL Globulin (2.6-4.0) g/dL Albumin/Globulin Ratio (0.9-1.6) Lipase (73-393) U/L Urine Color Urine Appearance Urine pH (5.0-8.0) Ur Specific [place] (1.001-1.035) Urine Protein (NEGATIVE) mg/dL Urine Glucose (UA) (NEGATIVE) mg/dL Urine Ketones (NEGATIVE) mg/dL Urine Occult Blood (NEGATIVE) Urine Nitrite (NEGATIVE) Urine Bilirubin (NEGATIVE) Urine Ictotest Urine Urobilinogen (<2.0) EU/dL Ur Leukocyte Esterase (NEGATIVE) Urine RBC (0-2/HPF) Urine WBC (0-5/HPF) Ur Epithelial Cells (NONE-FEW) Urine Bacteria (NEGATIVE) Urine Mucus (NONE-MOD) Urine Opiates Screen (NEGATIVE) Ur Oxycodone Screen (NEGATIVE) Urine Methadone Screen (NEGATIVE) Ur Barbiturates Screen (NEGATIVE) Ur Phencyclidine Scrn (NEGATIVE) Ur Amphetamine Screen (NEGATIVE) U Methamphetamines Scrn (NEGATIVE) U Benzodiazepines Scrn (NEGATIVE) U Cocaine Metab Screen (NEGATIVE) U Marijuana (THC) Screen (NEGATIVE) Ethyl Alcohol mg/dL SARS-CoV-2 RNA (EMANI) NEGATIVE (NEGATIVE) 02/17/20 02/17/20 02/17/20 Range/Units 20:00 22:18 22:18 WBC (4.0-11.0) K/uL RBC (4.50-5.90) M/uL Hgb (13.0-17.0) g/dL Hct (38.0-50.0) % MCV (80.0-98.0) fL MCH (27.0-32.0) pg MCHC (31.0-37.0) g/dL RDW Std Deviation (28.0-62.0) fl RDW Coeff of Stephane (11.0-15.0) % Plt Count (150-400) K/uL MPV (7.40-12.00) fL Neut % (Auto) (48.0-80.0) % Lymph % (Auto) (16.0-40.0) % [place] % (Auto) (0.0-15.0) % Eos % (Auto) (0.0-7.0) % Baso % (Auto) (0.0-1.5) % Neut # (Auto) (1.4-5.7) K/uL Lymph # (Auto) (0.6-2.4) K/uL [place] # (Auto) (0.0-0.8) K/uL Eos # (Auto) (0.0-0.7) K/uL Baso # (Auto) (0.0-0.1) K/uL Nucleated RBC % /100WBC Nucleated RBCs # K/uL Sodium 137 (136-148) mmol/L Potassium 2.9 L (3.5-5.1) mmol/L Chloride 97 L (98-107) mmol/L Carbon Dioxide 24.6 (21.0-32.0) mmol/L BUN 17 (7.0-18.0) mg/dL Creatinine 1.0 (0.8-1.3) mg/dL Est Cr Clr Drug Dosing 65.39 mL/min Estimated GFR (MDRD) > 60.0 ml/min Glucose 185 H (74-106) mg/dL Calcium 9.4 (8.5-10.1) mg/dL Phosphorus (2.6-4.7) mg/dL Magnesium (1.8-2.4) mg/dL Total Bilirubin (0.2-1.0) mg/dL AST (15-37) IU/L ALT (14-63) IU/L Alkaline Phosphatase (46-116) U/L Creatine Kinase (26-308) U/L Troponin I (0.000-0.056) ng/mL Total Protein (6.4-8.2) g/dL Albumin (3.4-5.0) g/dL Globulin (2.6-4.0) g/dL Albumin/Globulin Ratio (0.9-1.6) Lipase (73-393) U/L Urine Color DARK YELLOW Urine Appearance CLEAR Urine pH 6.5 (5.0-8.0) Ur Specific [place] 1.010 (1.001-1.035) Urine Protein TRACE H (NEGATIVE) mg/dL Urine Glucose (UA) NEGATIVE (NEGATIVE) mg/dL Urine Ketones >=80 (NEGATIVE) mg/dL Urine Occult Blood TRACE-INTACT H (NEGATIVE) Urine Nitrite NEGATIVE (NEGATIVE) Urine Bilirubin MODERATE H (NEGATIVE) Urine Ictotest POSITIVE Urine Urobilinogen 4.0 H (<2.0) EU/dL Ur Leukocyte Esterase NEGATIVE (NEGATIVE) Urine RBC NONE SEEN (0-2/HPF) Urine WBC 0-2 (0-5/HPF) Ur Epithelial Cells RARE (NONE-FEW) Urine Bacteria FEW (NEGATIVE) Urine Mucus LIGHT (NONE-MOD) Urine Opiates Screen NEGATIVE (NEGATIVE) Ur Oxycodone Screen NEGATIVE (NEGATIVE) Urine Methadone Screen NEGATIVE (NEGATIVE) Ur Barbiturates Screen NEGATIVE (NEGATIVE) Ur Phencyclidine Scrn NEGATIVE (NEGATIVE) Ur Amphetamine Screen NEGATIVE (NEGATIVE) U Methamphetamines Scrn NEGATIVE (NEGATIVE) U Benzodiazepines Scrn NEGATIVE (NEGATIVE) U Cocaine Metab Screen NEGATIVE (NEGATIVE) U Marijuana (THC) Screen NEGATIVE (NEGATIVE) Ethyl Alcohol mg/dL SARS-CoV-2 RNA (EMANI) (NEGATIVE) 02/18/20 02/18/20 02/18/20 Range/Units 05:20 05:20 05:20 WBC 5.78 (4.0-11.0) K/uL RBC 3.25 L (4.50-5.90) M/uL Hgb 10.5 L (13.0-17.0) g/dL Hct 29.5 L (38.0-50.0) % MCV 90.8 (80.0-98.0) fL MCH 32.3 H (27.0-32.0) pg MCHC 35.6 (31.0-37.0) g/dL RDW Std Deviation 44.9 (28.0-62.0) fl RDW Coeff of Tsephane 14 (11.0-15.0) % Plt Count 100 L (150-400) K/uL MPV 12.20 H (7.40-12.00) fL Neut % (Auto) 53.7 (48.0-80.0) % Lymph % (Auto) 30.3 (16.0-40.0) % [place] % (Auto) 15.1 H (0.0-15.0) % Eos % (Auto) 0.7 (0.0-7.0) % Baso % (Auto) 0.2 (0.0-1.5) % Neut # (Auto) 3.1 (1.4-5.7) K/uL Lymph # (Auto) 1.8 (0.6-2.4) K/uL [place] # (Auto) 0.9 H (0.0-0.8) K/uL Eos # (Auto) 0.0 (0.0-0.7) K/uL Baso # (Auto) 0.0 (0.0-0.1) K/uL Nucleated RBC % 0.0 /100WBC Nucleated RBCs # 0 K/uL Sodium 139 (136-148) mmol/L Potassium 2.6 L (3.5-5.1) mmol/L Chloride 102 (98-107) mmol/L Carbon Dioxide 24.6 (21.0-32.0) mmol/L BUN 13 (7.0-18.0) mg/dL Creatinine 0.9 (0.8-1.3) mg/dL Est Cr Clr Drug Dosing 72.66 mL/min Estimated GFR (MDRD) > 60.0 ml/min Glucose 149 H (74-106) mg/dL Calcium 8.9 (8.5-10.1) mg/dL Phosphorus 1.4 L (2.6-4.7) mg/dL Magnesium 1.5 L (1.8-2.4) mg/dL Total Bilirubin 1.8 H (0.2-1.0) mg/dL AST 93 H (15-37) IU/L ALT 21 (14-63) IU/L Alkaline Phosphatase 57 (46-116) U/L Creatine Kinase (26-308) U/L Troponin I (0.000-0.056) ng/mL Total Protein 6.8 (6.4-8.2) g/dL Albumin 3.5 (3.4-5.0) g/dL Globulin 3.3 (2.6-4.0) g/dL Albumin/Globulin Ratio 1.1 (0.9-1.6) Lipase (73-393) U/L Urine Color Urine Appearance Urine pH (5.0-8.0) Ur Specific [place] (1.001-1.035) Urine Protein (NEGATIVE) mg/dL Urine Glucose (UA) (NEGATIVE) mg/dL Urine Ketones (NEGATIVE) mg/dL Urine Occult Blood (NEGATIVE) Urine Nitrite (NEGATIVE) Urine Bilirubin (NEGATIVE) Urine Ictotest Urine Urobilinogen (<2.0) EU/dL Ur Leukocyte Esterase (NEGATIVE) Urine RBC (0-2/HPF) Urine WBC (0-5/HPF) Ur Epithelial Cells (NONE-FEW) Urine Bacteria (NEGATIVE) Urine Mucus (NONE-MOD) Urine Opiates Screen (NEGATIVE) Ur Oxycodone Screen (NEGATIVE) Urine Methadone Screen (NEGATIVE) Ur Barbiturates Screen (NEGATIVE) Ur Phencyclidine Scrn (NEGATIVE) Ur Amphetamine Screen (NEGATIVE) U Methamphetamines Scrn (NEGATIVE) U Benzodiazepines Scrn (NEGATIVE) U Cocaine Metab Screen (NEGATIVE) U Marijuana (THC) Screen (NEGATIVE) Ethyl Alcohol mg/dL SARS-CoV-2 RNA (EMANI) (NEGATIVE) Med Orders - Current: Current Medications Folic Acid (Folic Acid) 1 mg IV DAILY MARCEL Last Admin: 02/18/20 10:02 Dose: 1 mg Documented by: Thiamine HCl 500 mg/ Sodium (Chloride) 255 mls @ 510 mls/hr IV Q8H [facility] Potassium Phosphate 30 mmole/ (Sodium Chloride) 510 mls @ 100 mls/hr IV ONETIME ONE Stop: 02/18/20 16:06 Lorazepam (Ativan) 0 mg IVPUSH Q4H PRN; Protocol PRN Reason: CIWAA Ondansetron HCl (Zofran) 4 mg IVPUSH Q4H PRN PRN Reason: Nausea Potassium Chloride (Klor-Con M20) 40 meq PO BID@0800,1200 [facility] Last Admin: 02/18/20 10:01 Dose: 40 meq Documented by: Sodium Chloride (Saline Flush) 10 ml FLUSH ASDIRECTED PRN PRN Reason: Keep Vein Open Last Admin: 02/17/20 12:57 Dose: 10 ml Documented by: Sodium Chloride (Saline Flush) 2.5 ml FLUSH ASDIRECTED PRN PRN Reason: Keep Vein Open Last Admin: 02/17/20 12:57 Dose: 2.5 ml Documented by: Sodium Phosphate (Neutra-Phos) 250 mg PO QID [facility] Last Admin: 02/18/20 06:22 Dose: 250 mg Documented by: Discontinued Medications Sodium Chloride (Normal Saline) 1,000 mls @ 999 mls/hr IV STAT ONE Stop: 02/17/20 13:35 Last Admin: 02/17/20 12:58 Dose: 999 mls/hr Documented by: Potassium Chloride 40 meq/ (Premix) 100 mls @ 25 mls/hr IV ONETIME ONE Stop: 02/17/20 18:40 Last Admin: 02/17/20 15:05 Dose: 25 mls/hr Documented by: Sodium Chloride (Normal Saline) 1,000 mls @ 125 mls/hr IV STAT ONE Stop: 02/17/20 22:41 Last Admin: 02/17/20 22:48 Dose: Not Given Documented by: Sodium Chloride (Normal Saline) 500 mls @ 125 mls/hr IV ONETIME ONE Stop: 02/17/20 18:59 Last Admin: 02/17/20 15:43 Dose: 125 mls/hr Documented by: Thiamine HCl 100 mg/ Sodium (Chloride) 101 mls @ 202 mls/hr IV DAILY MARCEL Last Admin: 02/17/20 18:50 Dose: 202 mls/hr Documented by: Potassium Chloride/Sodium Chloride (Normal Saline With 40 Meq Kcl) 1,000 mls @ 150 mls/hr IV ASDIRECTED MARCEL Last Admin: 02/17/20 23:37 Dose: 150 mls/hr Documented by: Magnesium Sulfate 4 gm/ Premix 100 mls @ 50 mls/hr IV ONETIME ONE Stop: 02/18/20 10:26 Last Admin: 02/18/20 10:04 Dose: 50 mls/hr Documented by: Potassium Chloride/Sodium Chloride (Normal Saline With 40 Meq Kcl) 1,000 mls @ 125 mls/hr IV ONETIME ONE Stop: 02/18/20 16:35 Potassium Chloride (Klor-Con M20) 40 meq PO ONETIME ONE Stop: 02/17/20 14:44 Last Admin: 02/17/20 15:06 Dose: 40 meq Documented by: Potassium Chloride (Klor-Con M20) 40 meq PO ONETIME ONE Stop: 02/17/20 16:39 Last Admin: 02/17/20 18:46 Dose: Not Given Documented by: Potassium Chloride (Klor-Con M20) 40 meq PO ONETIME ONE Stop: 02/17/20 22:03 Last Admin: 02/17/20 23:05 Dose: 40 meq Documented by: - Exam General: Alert, Oriented, Cooperative, No Acute Distress Lungs: Clear to Auscultation, Normal Respiratory Effort Cardiovascular: Regular Rate, Regular Rhythm GI/Abdominal Exam: Normal Bowel Sounds, Soft, Non-Tender Extremities: Normal Inspection, Normal Range of Motion, Non-Tender, No Pedal Edema Neurological: Strength Equal Bilateral, Other (tremors). No: Normal Gait (ataxia noted) Psy/Mental Status: Alert, Normal Affect, Normal Mood Sepsis Event Note - Evaluation Sepsis Screening Result: No Definite Risk - Focused Exam Vital Signs: Vital Signs Temp Pulse Resp BP Pulse Ox 02/18/20 08:00 97.3 F 107 H 16 131/91 H 100 02/18/20 04:19 97.7 F 65 16 126/80 98 02/17/20 23:56 98.3 F 95 17 136/79 97 - Problem List & Annotations (1) Malnutrition SNOMED Code(s): 21306872 Code(s): E46 - UNSPECIFIED PROTEIN-CALORIE MALNUTRITION Status: Acute Current Visit: Yes Qualifiers: Malnutrition type: protein-calorie malnutrition Protein-calorie malnutrition severity: mild Qualified Code(s): E44.1 - Mild protein-calorie malnutrition (2) Ataxia SNOMED Code(s): 01581008 Code(s): R27.0 - ATAXIA, UNSPECIFIED Status: Acute Current Visit: Yes (3) Hypophosphatemia SNOMED Code(s): 3506150 Code(s): E83.39 - OTHER DISORDERS OF PHOSPHORUS METABOLISM Status: Acute Current Visit: Yes (4) Hypokalemia SNOMED Code(s): 05451900 Code(s): E87.6 - HYPOKALEMIA Status: Acute Current Visit: Yes (5) Alcohol use SNOMED Code(s): 404275 Code(s): Z72.89 - OTHER PROBLEMS RELATED TO LIFESTYLE Status: Chronic Priority: High Current Visit: No (6) Tobacco use SNOMED Code(s): 934602263 Code(s): Z72.0 - TOBACCO USE Status: Chronic Priority: High Current Visit: No (7) Hypomagnesemia SNOMED Code(s): 005091148 Code(s): E83.42 - HYPOMAGNESEMIA Status: Acute Current Visit: No - Problem List Review Problem List Initiated/Reviewed/Updated: Yes - My Orders Last 24 Hours: My Active Orders 02/18/20 08:00 Potassium Chloride [Klor-Con M20] 40 meq PO BID@0800,1200 02/18/20 09:43 Patient Status [ADT] Stat 02/18/20 09:44 PT Evaluation and Treatment [CONS] Routine 02/18/20 10:00 Thiamine [Vitamin B-1] 500 mg Sodium Chloride 0.9% [Normal Saline] 250 ml IV Q8H 02/18/20 11:01 Potassium Phosphates 30 mmole Sodium Chloride 0.9% [Normal Saline] 500 ml IV ONETIME 02/18/20 15:00 BASIC METABOLIC PANEL,BMP [CHEM] Routine MAGNESIUM [CHEM] Timed PHOSPHORUS [CHEM] Timed - Plan Plan:: 64 yo male admitted for hypokalemia teo due to ETOH abuse. 1. Malnutrition with multiple electrolyte abnormalities - Replace Mag, Phos and potassium IV this am and recheck this afternoon - Remain on telemetry - Eating and tolerating diet well. 2. Alcohol use/abuse - Ataxia noted, no encephalopathy or nystagmus - Will increase thiamine to 500 mg TID x 2 days then 250 mg IV x 4 more days due to chronic alcohol use. - Continue folic acid - Ativan prn CIWAA protocol. - No drinking for 6 days, otherwise he drinks whiskey daily 3. Ataxia - Obtain MRI of brain, unlikely a stroke more concerning for Wernicke's and alcohol abuse - Thiamine as above. VTE prophylaxis: SCDs Dispo: Will make inpatient as he will need longer than 2 midnight stay
[2020-02-18] MEDS ORDERED: Potassium Phosphates 30 MMOLE in Sodium Chloride 0.9% 500 ML IV ONE ×2 (11:15)
[2020-02-18] MEDS: Thiamine 500 MG in Sodium Chloride 0.9% 250 ML IV SCH ×2 (12:27→19:34)
[2020-02-18 17:08] LABS: BLOOD UREA NITROGEN,BUN 9 mg/dL (7.0-18.0); CARBON DIOXIDE,CO2 24.8 mmol/L (21.0-32.0); CHLORIDE,CL 101 mmol/L (98-107); GLUCOSE RANDOM 116 mg/dL (74-106); SODIUM,NA 139 mmol/L (136-148)
[2020-02-18] MEDS ORDERED: Docusate Sodium 100 MG Cap PO ONE (22:45)
[2020-02-19] MEDS: Thiamine 500 MG in Sodium Chloride 0.9% 250 ML IV SCH ×3 (01:53→17:45)
[2020-02-19] MEDS: Phosphorus #1 250 MG Tab PO SCH ×4 (05:09→23:08)
[2020-02-19 06:53] LABS: BLOOD UREA NITROGEN,BUN 4 mg/dL (7.0-18.0); CARBON DIOXIDE,CO2 24.6 mmol/L (21.0-32.0); CHLORIDE,CL 103 mmol/L (98-107); GLUCOSE RANDOM 126 mg/dL (74-106); POTASSIUM,K 2.7 mmol/L (3.5-5.1); SODIUM,NA 141 mmol/L (136-148)
[2020-02-19] MEDS: Potassium Chloride 20 MEQ Tab.ER PO SCH ×2 (09:30→12:32)
[2020-02-19] MEDS: Docusate Sodium 100 MG Cap PO SCH ×2 (09:30→20:35)
[2020-02-19] MEDS: Folic Acid 50 MG/10 ML MDV IV SCH (09:31)
[2020-02-19] MEDS ORDERED: Potassium Chloride 20 MEQ Tab.ER PO ONE ×2 (10:07→22:05)
[2020-02-19] MEDS ORDERED: Magnesium Sulfate/Water 2 GM/50 ML Premix Bag IV STA (10:07)
[2020-02-19] MEDS ORDERED: Sodium Chloride 0.9% with KCl 1,000 ML IV SCH (10:15)
[2020-02-19] MEDS ORDERED: Magnesium Sulfate/Water 2 GM/50 ML BAG IV ONE (10:15)
--- NOTE | 2020-02-19 12:32 | PCM.PN ---
- General Info Date of Service: 02/19/20 - Review of Systems Systems Review Comment:: feeling better, still unstable when walking - Patient Data Vitals - Most Recent: Last Vital Signs Temp 36.6 C 02/19/20 11:30 Pulse 107 H 02/19/20 11:30 Resp 18 02/19/20 11:30 BP 162/89 H 02/19/20 11:30 Pulse Ox 96 02/19/20 11:30 Orthostatic Blood Pressure [ 91/45 Standing] Orthostatic Blood Pressure [ 110/74 Sitting] Orthostatic Blood Pressure [ 126/81 Supine] Weight - Most Recent: 72.575 kg I&O - Last 24 Hours: Intake & Output 02/18/20 02/19/20 02/19/20 22:59 06:59 14:59 Intake Total 800 Balance 800 Lab Results Last 24 Hours: Laboratory Results - last 24 hr 02/18/20 02/19/20 02/19/20 Range/Units 16:35 05:15 05:15 WBC 6.18 (4.0-11.0) K/uL RBC 3.03 L (4.50-5.90) M/uL Hgb 9.8 L (13.0-17.0) g/dL Hct 27.8 L (38.0-50.0) % MCV 91.7 (80.0-98.0) fL MCH 32.3 H (27.0-32.0) pg MCHC 35.3 (31.0-37.0) g/dL RDW Std Deviation 45.8 (28.0-62.0) fl RDW Coeff of Stephane 14 (11.0-15.0) % Plt Count 125 L (150-400) K/uL MPV 12.10 H (7.40-12.00) fL Neut % (Auto) 54.7 (48.0-80.0) % Lymph % (Auto) 31.6 (16.0-40.0) % [place] % (Auto) 12.1 (0.0-15.0) % Eos % (Auto) 1.3 (0.0-7.0) % Baso % (Auto) 0.3 (0.0-1.5) % Neut # (Auto) 3.4 (1.4-5.7) K/uL Lymph # (Auto) 2.0 (0.6-2.4) K/uL [place] # (Auto) 0.8 (0.0-0.8) K/uL Eos # (Auto) 0.1 (0.0-0.7) K/uL Baso # (Auto) 0.0 (0.0-0.1) K/uL Nucleated RBC % 0.0 /100WBC Nucleated RBCs # 0 K/uL Sodium 139 141 (136-148) mmol/L Potassium 3.0 L 2.7 L (3.5-5.1) mmol/L Chloride 101 103 (98-107) mmol/L Carbon Dioxide 24.8 24.6 (21.0-32.0) mmol/L BUN 9 4 L (7.0-18.0) mg/dL Creatinine 0.8 0.8 (0.8-1.3) mg/dL Est Cr Clr Drug Dosing 81.74 81.74 mL/min Estimated GFR (MDRD) > 60.0 > 60.0 ml/min Glucose 116 H 126 H (74-106) mg/dL Calcium 8.9 8.4 L (8.5-10.1) mg/dL Phosphorus 2.9 3.2 (2.6-4.7) mg/dL Magnesium 2.4 1.8 (1.8-2.4) mg/dL Total Bilirubin 1.1 H (0.2-1.0) mg/dL AST 71 H (15-37) IU/L ALT 20 (14-63) IU/L Alkaline Phosphatase 62 (46-116) U/L Total Protein 6.5 (6.4-8.2) g/dL Albumin 3.4 (3.4-5.0) g/dL Globulin 3.1 (2.6-4.0) g/dL Albumin/Globulin Ratio 1.1 (0.9-1.6) Med Orders - Current: Current Medications Docusate Sodium (Colace) 100 mg PO BID [facility] Last Admin: 02/19/20 09:30 Dose: 100 mg Documented by: Folic Acid (Folic Acid) 1 mg IV DAILY [facility] Last Admin: 02/19/20 09:31 Dose: 1 mg Documented by: Thiamine HCl 500 mg/ Sodium (Chloride) 255 mls @ 510 mls/hr IV Q8H [facility] Last Admin: 10/10/20 09:35 Dose: 510 mls/hr Documented by: Potassium Chloride/Sodium Chloride (Normal Saline With 40 Meq Kcl) 1,000 mls @ 150 mls/hr IV ONETIME [facility] Stop: 02/19/20 16:54 Last Admin: 02/19/20 11:08 Dose: 150 mls/hr Documented by: Lorazepam (Ativan) 0 mg IVPUSH Q4H PRN; Protocol PRN Reason: CIWAA Ondansetron HCl (Zofran) 4 mg IVPUSH Q4H PRN PRN Reason: Nausea Potassium Chloride (Klor-Con M20) 40 meq PO BID@0800,1200 [facility] Last Admin: 02/19/20 09:30 Dose: 40 meq Documented by: Sodium Chloride (Saline Flush) 10 ml FLUSH ASDIRECTED PRN PRN Reason: Keep Vein Open Last Admin: 02/17/20 12:57 Dose: 10 ml Documented by: Sodium Chloride (Saline Flush) 2.5 ml FLUSH ASDIRECTED PRN PRN Reason: Keep Vein Open Last Admin: 02/17/20 12:57 Dose: 2.5 ml Documented by: Sodium Phosphate (Neutra-Phos) 250 mg PO QID [facility] Last Admin: 02/19/20 05:09 Dose: 250 mg Documented by: Discontinued Medications Docusate Sodium (Colace) 100 mg PO ONETIME ONE Stop: 02/18/20 22:46 Last Admin: 02/18/20 23:20 Dose: 100 mg Documented by: Sodium Chloride (Normal Saline) 1,000 mls @ 999 mls/hr IV STAT ONE Stop: 02/17/20 13:35 Last Admin: 02/17/20 12:58 Dose: 999 mls/hr Documented by: Potassium Chloride 40 meq/ (Premix) 100 mls @ 25 mls/hr IV ONETIME ONE Stop: 02/17/20 18:40 Last Admin: 02/17/20 15:05 Dose: 25 mls/hr Documented by: Sodium Chloride (Normal Saline) 1,000 mls @ 125 mls/hr IV STAT ONE Stop: 02/17/20 22:41 Last Admin: 02/17/20 22:48 Dose: Not Given Documented by: Sodium Chloride (Normal Saline) 500 mls @ 125 mls/hr IV ONETIME ONE Stop: 02/17/20 18:59 Last Admin: 02/17/20 15:43 Dose: 125 mls/hr Documented by: Thiamine HCl 100 mg/ Sodium (Chloride) 101 mls @ 202 mls/hr IV DAILY [facility] Last Admin: 02/17/20 18:50 Dose: 202 mls/hr Documented by: Potassium Chloride/Sodium Chloride (Normal Saline With 40 Meq Kcl) 1,000 mls @ 150 mls/hr IV ASDIRECTED [facility] Last Admin: 02/17/20 23:37 Dose: 150 mls/hr Documented by: Magnesium Sulfate 4 gm/ Premix 100 mls @ 50 mls/hr IV ONETIME ONE Stop: 02/18/20 10:26 Last Admin: 02/18/20 10:04 Dose: 50 mls/hr Documented by: Potassium Chloride/Sodium Chloride (Normal Saline With 40 Meq Kcl) 1,000 mls @ 125 mls/hr IV ONETIME ONE Stop: 02/18/20 16:35 Potassium Phosphate 30 mmole/ (Sodium Chloride) 510 mls @ 100 mls/hr IV ONETIME ONE Stop: 02/18/20 16:20 Last Admin: 02/18/20 12:41 Dose: 100 mls/hr Documented by: Magnesium Sulfate (Magnesium Sulfate In Water Premix) 2 gm in 50 mls @ 50 mls/hr IV ONETIME ONE Stop: 02/19/20 11:14 Last Admin: 02/19/20 10:34 Dose: 50 mls/hr Documented by: Potassium Chloride (Klor-Con M20) 40 meq PO ONETIME ONE Stop: 02/17/20 14:44 Last Admin: 02/17/20 15:06 Dose: 40 meq Documented by: Potassium Chloride (Klor-Con M20) 40 meq PO ONETIME ONE Stop: 02/17/20 16:39 Last Admin: 02/17/20 18:46 Dose: Not Given Documented by: Potassium Chloride (Klor-Con M20) 40 meq PO ONETIME ONE Stop: 02/17/20 22:03 Last Admin: 02/17/20 23:05 Dose: 40 meq Documented by: Potassium Chloride (Klor-Con M20) 40 meq PO ONETIME ONE Stop: 02/19/20 10:08 - Exam General: Alert, Oriented Neck: Supple Lungs: Clear to Auscultation, Normal Respiratory Effort Cardiovascular: Regular Rate, Regular Rhythm GI/Abdominal Exam: Soft, Non-Tender, No Distention Extremities: Non-Tender, No Pedal Edema Skin: Warm, Dry, Intact Neurological: No New Focal Deficit Sepsis Event Note - Evaluation Sepsis Screening Result: No Definite Risk - Focused Exam Vital Signs: Vital Signs Temp Pulse Resp BP Pulse Ox 02/19/20 11:30 36.6 C 107 H 18 162/89 H 96 02/19/20 08:10 36.9 C 103 H 18 127/84 98 02/19/20 04:27 36.3 C 92 16 144/82 H 98 - Problem List Review Problem List Initiated/Reviewed/Updated: Yes - My Orders Last 24 Hours: My Active Orders 02/19/20 09:00 Docusate Sodium [Colace] 100 mg PO BID 02/19/20 10:15 Sodium Chloride 0.9% with KCl [Normal Saline with 40 mEq KCl] 1,000 ml IV ONETIME 02/19/20 18:00 BASIC METABOLIC PANEL,BMP [CHEM] Routine MAGNESIUM [CHEM] Routine 02/20/20 05:11 CBC WITH AUTO DIFF [HEME] AM COMPREHENSIVE METABOLIC PN,CMP [CHEM] AM - Plan Plan:: 64 yo male admitted for hypokalemia likely due to ETOH abuse. Hypokalemia/hypomagnesia/hypophosphatemia: potassium remains low despite multiple dosing of replacement potassium ETOH abuse: [facility] protocol Suki encephalopaty: continue thiamine, folic acid
[2020-02-19 18:41] LABS: BLOOD UREA NITROGEN,BUN 4 mg/dL (7.0-18.0); CARBON DIOXIDE,CO2 23.3 mmol/L (21.0-32.0); CHLORIDE,CL 104 mmol/L (98-107); GLUCOSE RANDOM 118 mg/dL (74-106); POTASSIUM,K 3.2 mmol/L (3.5-5.1); SODIUM,NA 141 mmol/L (136-148)
[2020-02-20] MEDS: Thiamine 500 MG in Sodium Chloride 0.9% 250 ML IV SCH ×2 (01:08→09:59)
[2020-02-20] MEDS: Phosphorus #1 250 MG Tab PO SCH (06:15)
[2020-02-20 06:25] LABS: BLOOD UREA NITROGEN,BUN 2 mg/dL (7.0-18.0); CARBON DIOXIDE,CO2 26.5 mmol/L (21.0-32.0); CHLORIDE,CL 105 mmol/L (98-107); GLUCOSE RANDOM 106 mg/dL (74-106); POTASSIUM,K 3.1 mmol/L (3.5-5.1); SODIUM,NA 141 mmol/L (136-148)
[2020-02-20] MEDS: Potassium Chloride 20 MEQ Tab.ER PO SCH (08:20)
[2020-02-20] MEDS: Folic Acid 50 MG/10 ML MDV IV SCH (08:21)
[2020-02-20] MEDS: Docusate Sodium 100 MG Cap PO SCH ×2 (08:21→09:38)
[2020-02-20] MEDS ORDERED: Magnesium Sulfate/Water 2 GM/50 ML BAG IV ONE (09:31)
[2020-02-20] MEDS ORDERED: Potassium Chloride 20 MEQ Tab.ER PO ONE (09:32)
--- NOTE | 2020-02-20 10:22 | PCM.DCSUM1 ---
Discharge Summary - Discharge Data Discharge Date: 02/20/20 Discharge Disposition: Home, Self-Care 01 Condition: Good - Referral to Home Health Primary Care Physician: PCP None - Patient Summary/Data Consults: Consultations 02/18/20 09:44 PT Evaluation and Treatment [CONS] Routine Hospital Course: 64 yo male who was admitted for ETOH abuse with debility and suspected Wernicke encephalopathy. He presented to the ED with complaint of generalized weakness with frequent falls for past several weeks. Patient reports he drinks whiskey daily but has not any ETOH in four days. During his admission he required frequent electrolyte replacement for his hypokalemia, hypomagnesia and hypophosphatemia. He was place on CIWA protocol but required little Ativan. He was treated with thiamine. PT was consulted and his gait and balance did improve. Today he is demanding discharge. He is to be discharged home to have follow up with [facility]. - Patient Instructions Diet: Usual Diet as Tolerated Activity: As Tolerated - Discharge Plan Prescriptions/Med Rec: Potassium Chloride [Klor-Con M20] 20 meq PO DAILY #14 tab.er Thiamine [Vitamin B-1] 100 mg PO BEDTIME #14 tab Home Medications: Home Meds Potassium Chloride [Klor-Con M20] 20 meq PO DAILY #14 tab.er 02/20/20 [Rx] Thiamine [Vitamin B-1] 100 mg PO BEDTIME #14 tab 02/20/20 [Rx] Forms: ED Department Discharge Referrals: Della Mccabe MD [Resident] - 02/25/20 2:00 pm - Discharge Summary/Plan Comment DC Time >30 min.: No - Patient Data Vitals - Most Recent: Last Vital Signs Temp 36.0 C L 02/20/20 08:00 Pulse 95 02/20/20 08:00 Resp 17 02/20/20 08:00 BP 144/97 H 02/20/20 08:00 Pulse Ox 98 02/20/20 08:00 Orthostatic Blood Pressure [ 91/45 Standing] Orthostatic Blood Pressure [ 110/74 Sitting] Orthostatic Blood Pressure [ 126/81 Supine] Weight - Most Recent: 72.575 kg I&O - Last 24 hours: Intake & Output 02/19/20 02/20/20 02/20/20 22:59 06:59 14:59 Intake Total 2509 950 Output Total 250 300 Balance 2259 650 Lab Results - Last 24 hrs: Laboratory Results - last 24 hr 02/19/20 02/20/20 02/20/20 Range/Units 18:17 05:30 05:30 WBC 5.87 (4.0-11.0) K/uL RBC 2.91 L (4.50-5.90) M/uL Hgb 9.4 L (13.0-17.0) g/dL Hct 26.8 L (38.0-50.0) % MCV 92.1 (80.0-98.0) fL MCH 32.3 H (27.0-32.0) pg MCHC 35.1 (31.0-37.0) g/dL RDW Std Deviation 45.9 (28.0-62.0) fl RDW Coeff of Stephane 14 (11.0-15.0) % Plt Count 140 L (150-400) K/uL MPV 11.50 (7.40-12.00) fL Neut % (Auto) 50.9 (48.0-80.0) % Lymph % (Auto) 33.2 (16.0-40.0) % Lamb % (Auto) 14.7 (0.0-15.0) % Eos % (Auto) 1.0 (0.0-7.0) % Baso % (Auto) 0.2 (0.0-1.5) % Neut # (Auto) 3.0 (1.4-5.7) K/uL Lymph # (Auto) 2.0 (0.6-2.4) K/uL Lamb # (Auto) 0.9 H (0.0-0.8) K/uL Eos # (Auto) 0.1 (0.0-0.7) K/uL Baso # (Auto) 0.0 (0.0-0.1) K/uL Nucleated RBC % 0.0 /100WBC Nucleated RBCs # 0 K/uL Sodium 141 141 (136-148) mmol/L Potassium 3.2 L 3.1 L (3.5-5.1) mmol/L Chloride 104 105 (98-107) mmol/L Carbon Dioxide 23.3 26.5 (21.0-32.0) mmol/L BUN 4 L 2 L (7.0-18.0) mg/dL Creatinine 0.7 L 0.6 L (0.8-1.3) mg/dL Est Cr Clr Drug Dosing 101.79 118.75 mL/min Estimated GFR (MDRD) > 60.0 > 60.0 ml/min Glucose 118 H 106 (74-106) mg/dL Calcium 8.4 L 8.4 L (8.5-10.1) mg/dL Phosphorus 3.8 (2.6-4.7) mg/dL Magnesium 2.2 1.6 L (1.8-2.4) mg/dL Total Bilirubin 0.7 (0.2-1.0) mg/dL AST 48 H (15-37) IU/L ALT 21 (14-63) IU/L Alkaline Phosphatase 62 (46-116) U/L Total Protein 6.2 L (6.4-8.2) g/dL Albumin 3.3 L (3.4-5.0) g/dL Globulin 2.9 (2.6-4.0) g/dL Albumin/Globulin Ratio 1.1 (0.9-1.6) Med Orders - Current: Current Medications Docusate Sodium (Colace) 100 mg PO BID [facility] Last Admin: 02/20/20 09:38 Dose: Not Given Documented by: Folic Acid (Folic Acid) 1 mg IV DAILY [facility] Last Admin: 02/20/20 08:21 Dose: 1 mg Documented by: Thiamine HCl 500 mg/ Sodium (Chloride) 255 mls @ 510 mls/hr IV Q8H [facility] Last Admin: 02/20/20 09:59 Dose: Not Given Documented by: Magnesium Sulfate (Magnesium Sulfate In Water Premix) 2 gm in 50 mls @ 50 mls/hr IV ONETIME ONE Stop: 02/20/20 10:30 Last Admin: 02/20/20 09:47 Dose: 50 mls/hr Documented by: Lorazepam (Ativan) 0 mg IVPUSH Q4H PRN; Protocol PRN Reason: CIWAA Last Admin: 02/19/20 23:52 Dose: 1 mg Documented by: Ondansetron HCl (Zofran) 4 mg IVPUSH Q4H PRN PRN Reason: Nausea Last Admin: 02/20/20 01:12 Dose: 4 mg Documented by: Potassium Chloride (Klor-Con M20) 40 meq PO BID@0800,1200 [facility] Last Admin: 02/20/20 08:20 Dose: 40 meq Documented by: Sodium Chloride (Saline Flush) 10 ml FLUSH ASDIRECTED PRN PRN Reason: Keep Vein Open Last Admin: 02/17/20 12:57 Dose: 10 ml Documented by: Sodium Chloride (Saline Flush) 2.5 ml FLUSH ASDIRECTED PRN PRN Reason: Keep Vein Open Last Admin: 02/17/20 12:57 Dose: 2.5 ml Documented by: Sodium Phosphate (Neutra-Phos) 250 mg PO BID [facility] Discontinued Medications Docusate Sodium (Colace) 100 mg PO ONETIME ONE Stop: 02/18/20 22:46 Last Admin: 02/18/20 23:20 Dose: 100 mg Documented by: Sodium Chloride (Normal Saline) 1,000 mls @ 999 mls/hr IV STAT ONE Stop: 02/17/20 13:35 Last Admin: 02/17/20 12:58 Dose: 999 mls/hr Documented by: Potassium Chloride 40 meq/ (Premix) 100 mls @ 25 mls/hr IV ONETIME ONE Stop: 02/17/20 18:40 Last Admin: 02/17/20 15:05 Dose: 25 mls/hr Documented by: Sodium Chloride (Normal Saline) 1,000 mls @ 125 mls/hr IV STAT ONE Stop: 02/17/20 22:41 Last Admin: 02/17/20 22:48 Dose: Not Given Documented by: Sodium Chloride (Normal Saline) 500 mls @ 125 mls/hr IV ONETIME ONE Stop: 02/17/20 18:59 Last Admin: 02/17/20 15:43 Dose: 125 mls/hr Documented by: Thiamine HCl 100 mg/ Sodium (Chloride) 101 mls @ 202 mls/hr IV DAILY [facility] Last Admin: 02/17/20 18:50 Dose: 202 mls/hr Documented by: Potassium Chloride/Sodium Chloride (Normal Saline With 40 Meq Kcl) 1,000 mls @ 150 mls/hr IV ASDIRECTED MARCEL Last Admin: 02/17/20 23:37 Dose: 150 mls/hr Documented by: Magnesium Sulfate 4 gm/ Premix 100 mls @ 50 mls/hr IV ONETIME ONE Stop: 02/18/20 10:26 Last Admin: 02/18/20 10:04 Dose: 50 mls/hr Documented by: Potassium Chloride/Sodium Chloride (Normal Saline With 40 Meq Kcl) 1,000 mls @ 125 mls/hr IV ONETIME ONE Stop: 02/18/20 16:35 Potassium Phosphate 30 mmole/ (Sodium Chloride) 510 mls @ 100 mls/hr IV ONETIME ONE Stop: 02/18/20 16:20 Last Admin: 02/18/20 12:41 Dose: 100 mls/hr Documented by: Potassium Chloride/Sodium Chloride (Normal Saline With 40 Meq Kcl) 1,000 mls @ 150 mls/hr IV ONETIME MARCEL Stop: 02/19/20 16:54 Last Admin: 02/19/20 11:08 Dose: 150 mls/hr Documented by: Magnesium Sulfate (Magnesium Sulfate In Water Premix) 2 gm in 50 mls @ 50 mls/hr IV ONETIME ONE Stop: 02/19/20 11:14 Last Admin: 02/19/20 10:34 Dose: 50 mls/hr Documented by: Potassium Chloride (Klor-Con M20) 40 meq PO ONETIME ONE Stop: 02/17/20 14:44 Last Admin: 02/17/20 15:06 Dose: 40 meq Documented by: Potassium Chloride (Klor-Con M20) 40 meq PO ONETIME ONE Stop: 02/17/20 16:39 Last Admin: 02/17/20 18:46 Dose: Not Given Documented by: Potassium Chloride (Klor-Con M20) 40 meq PO ONETIME ONE Stop: 02/17/20 22:03 Last Admin: 02/17/20 23:05 Dose: 40 meq Documented by: Potassium Chloride (Klor-Con M20) 40 meq PO ONETIME ONE Stop: 02/19/20 10:08 Last Admin: 02/19/20 21:25 Dose: Not Given Documented by: Potassium Chloride (Klor-Con M20) 40 meq PO ONETIME ONE Stop: 02/19/20 22:06 Last Admin: 02/19/20 23:08 Dose: 40 meq Documented by: Potassium Chloride (Klor-Con M20) 40 meq PO ONETIME ONE Stop: 02/20/20 09:33 Last Admin: 02/20/20 09:46 Dose: 40 meq Documented by: Sodium Phosphate (Neutra-Phos) 250 mg PO QID [facility] Last Admin: 02/20/20 06:15 Dose: 250 mg Documented by:
[2020-02-20] MEDS ORDERED: Phosphorus #1 250 MG Tab PO SCH (21:00)
== END 2020-02-20 12:30 | disposition home or self-care (01) | DRG 897 ==
LOC: MW.ED 11:35 → MW.MS 15:34 → OBSVTOIN 02-18 09:43 → MW.MS 02-18 17:05
PROVIDERS: ADMIT Internal Medicine; ATTEND Internal Medicine
DX: F10.10 Alcohol abuse, uncomplicated (principal); E51.2 Wernicke's encephalopathy; E44.1 Mild protein-calorie malnutrition; Z87.19 Personal history of other diseases of the digestive system; E87.6 Hypokalemia; E83.42 Hypomagnesemia; E83.39 Other disorders of phosphorus metabolism; R27.0 Ataxia, unspecified; Z20.828 Contact with and (suspected) exposure to other viral communicable diseases; F17.200 Nicotine dependence, unspecified, uncomplicated; E78.00 Pure hypercholesterolemia, unspecified; I10 Essential (primary) hypertension
CPT/HCPCS: 36415 ×2; 70450; 71045; 80048; 80053 ×2; 80305; 80307; 81001; 82550; 83690; 83735 ×2; 84100 ×2; 84484; 85025 ×2; 93005; 96361; 96365; 96366; 99285; A9270 ×5; J3411; J3480 ×2; J7030; J7040; U0002; 93010; 96367; 96376; 97161-GP; 99219; 99231; 99232; 99238; 99284; G0378; J2060; J2405; J3475; J7050

== ENCOUNTER 2020-04-15 14:46 | Emergency (ER) | payer MEDICARE, MEDICAID ==
[2020-04-15] MEDS ORDERED: Sodium Chloride 0.9% 2.5 ML Syringe FLUSH PRN (14:50)
[2020-04-15] MEDS ORDERED: Sodium Chloride 0.9% 10 ML Syringe FLUSH PRN (14:50)
[2020-04-15] MEDS ORDERED: Thiamine 100 MG in Sodium Chloride 0.9% 100 ML IV ONE (14:52)
[2020-04-15] MEDS ORDERED: Sodium Chloride 0.9% 1,000 ML IV ONE (14:52)
[2020-04-15] MEDS ORDERED: Folic Acid 50 MG/10 ML MDV IV STA (14:53)
--- NOTE | 2020-04-15 14:55 | EDM.PDOC ---
<Sukhdev Bruce - Last Filed: 04/15/20 18:37> ED HPI GENERAL MEDICAL PROBLEM - General Stated Complaint: FALL Time Seen by Provider: 04/15/20 14:47 - History of Present Illness INITIAL COMMENTS - FREE TEXT/NARRATIVE: History of present illness: EMS patient called them and said he had an emergency. When he got there he said he had laid on the floor all night because he could not get up. They helped him stand and then he was able to stand and walk of his own accord. The patient tells me he fell last night and is too weak to get up on his own because his legs are weak. He denies headache neck pain or back pain. He has frequent falls. Review of his admission on 18 February 2020 reveals he was admitted for weakness falls and Warnicke's encephalopathy. Seems he has not drunk since then. He is not diabetic and his blood glucose was 84 on the same. [] Review of systems: As per history of present illness and below otherwise all systems reviewed and negative. Past medical history: As per history of present illness and as reviewed below otherwise noncontributory. Surgical history: As per history of present illness and as reviewed below otherwise noncontributory. Social history: No reported history of drug or alcohol abuse. Family history: As per history of present illness and as reviewed below otherwise noncontributory. Physical exam: Constitutional - well developed, well-nourished and in no acute distress HEENT - normocephalic, no evidence of trauma - external nose and mouth normal - no mass in neck and no JVD - mucosae moist EYES - full EOM, PERRL, no icterus - no evidence of inflammation, injection, or drainage Respiratory - no respiratory distress, equal bilateral expansion, lungs clear to auscultation and no abnormal lung sounds Cardiovascular - Regular Rhythm with S1 and S2 appreciated and no murmur, gallop or rub. GI - abdomen soft without distension or organomegaly - normal bowel sounds - no guard or rebound Musculoskeletal no gross deformity of long bones or joints - no tenderness, swelling or edema Neurologic -patient speech content is normal. He is slow to respond. Slow to motor response to commands as well but they are normal once started. He has a mild tremor at rest. Alert and oriented times four - CN II-XII grossly intact - motor sensory and coordination symmetrically normal Psychiatric - appropriate mood and affect with normal thought content Hematologic - No petechiae or purpura - mucosa appropriate color and sclera not pale - normal nail bed color and refill Integument - no rash or evidence of trauma - normal turgor Diagnostics: [] Therapeutics: [] Impression: [] Plan: [] Definitive disposition and diagnosis as appropriate pending reevaluation and review of above. - Related Data Allergies Allergy/AdvReac Type Severity Reaction Status Date / Time No Known Allergies Allergy Verified 04/15/20 14:51 Home Meds: Home Meds . [No Known Home Meds] 04/15/20 [History] Past Medical History - Past Health History Medical/Surgical History: Denies Medical/Surgical History HEENT History: Reports: None Cardiovascular History: Reports: High Cholesterol, Hypertension Respiratory History: Reports: None Gastrointestinal History: Reports: GI Bleed Genitourinary History: Reports: None Musculoskeletal History: Reports: None Neurological History: Reports: None Psychiatric History: Reports: None Endocrine/Metabolic History: Reports: None Hematologic History: Reports: None Immunologic History: Reports: None Oncologic (Cancer) History: Reports: None Dermatologic History: Reports: None - Infectious Disease History Infectious Disease History: Reports: None - Past Surgical History Head Surgeries/Procedures: Reports: None HEENT Surgical History: Reports: None Cardiovascular Surgical History: Reports: None Respiratory Surgical History: Reports: None GI Surgical History: Reports: EGD Male Surgical History: Reports: None Endocrine Surgical History: Reports: None Neurological Surgical History: Reports: None Musculoskeletal Surgical History: Reports: None Oncologic Surgical History: Reports: None Dermatological Surgical History: Reports: None Social & Family History - Family History Family Medical History: No Pertinent Family History - Caffeine Use Caffeine Use: Reports: None Caffeine Use Comment: once in a while use of coffee. #1 Interpretation EKG Interpretation Comments: EKG done 04/15/2020 at 1500 hrs. and interpreted at 1519. Sinus rhythm with a heart rate of 82. ME interval 143 and QT 471. [place] 31. T waves inverted in leads I, aVL and V1 through V4. Compared to 02/22/2019 the T wave inversions are new. Impression possible ischemia Course - Vital Signs Text/Narrative:: 1644 hrs. alcohol level reported at 343. Liver functions are elevated. Will check ammonia and see if he needs hydration and time to sober up or if he needs to be admitted to the hospital for hepatic encephalopathy. At the end of my shift the plan was to let the patient become sober enough that we could get him up and see if he could balance and walk well. He has someone to call for a ride home. He was advised to stop drinking. He had been for complications of chronic alcohol abuse in the past. He said he is old and he does not want to stop drinking and he lives alone. He plans to get sober enough to walk and then it if he is able to balance well enough to go home today Departure - Departure Disposition: Home, Self-Care 01 Condition: Good Clinical Impression: Alcohol intoxication, Alcohol use - Discharge Information Instructions: Binge-Drinking Information, Adult, Alcohol Intoxication, [id number] Referrals: PCP,None [Primary Care Provider] - Forms: ED Department Discharge Additional Instructions: [facility] Address: [address] [place] [id number] Hours: walk in 9 AM M-F The following information is given to patients seen in the emergency department who are being discharged to home. This information is to outline your options for follow-up care. We provide all patients seen in our emergency department with a follow-up referral. The need for follow-up, as well as the timing and circumstances, are variable de pending upon the specifics of your emergency department visit. If you don't have a primary care physician on staff, we will provide you with a referral. We always advise you to contact your personal physician following an emergency department visit to inform them of the circumstance of the visit and for follow-up with them and/or the need for any referrals to a consulting specialist. The emergency department will also refer you to a specialist when appropriate. This referral assures that you have the opportunity for follow-up care with a specialist. All of these measure are taken in an effort to provide you with optimal care, which includes your follow-up. Under all circumstances we always encourage you to contact your private physician who remains a resource for coordinating your care. When calling for follow-up care, please make the office aware that this follow-up is from your recent emergency room visit. If for any reason you are refused follow-up, please contact the [facility] Emergency Department at and asked to speak to the emergency department charge nurse. <Alexys Corey - Last Filed: 04/15/20 19:37> ED ROS GENERAL - Review of Systems Review Of Systems: See Below (alcohol intox) ED EXAM, GENERAL - Physical Exam Exam: See Below Course - Vital Signs Last Recorded V/S: Last Vital Signs Temp 98.7 F 04/15/20 19:11 Pulse 86 04/15/20 19:11 Resp 18 04/15/20 19:11 BP 162/111 H 04/15/20 19:11 Pulse Ox 95 04/15/20 19:11 - Orders/Labs/Meds Orders: Active Orders 24 hr Category Date Time Status Saline Lock Insert [OM.PC] Stat Oth 04/15/20 14:50 Ordered Labs: Laboratory Tests 04/15/20 04/15/20 04/15/20 Range/Units 15:45 15:45 15:45 WBC 3.18 L (4.0-11.0) K/uL RBC 4.63 (4.50-5.90) M/uL Hgb 15.0 (13.0-17.0) g/dL Hct 43.4 (38.0-50.0) % MCV 93.7 (80.0-98.0) fL MCH 32.4 H (27.0-32.0) pg MCHC 34.6 (31.0-37.0) g/dL RDW Std Deviation 57.7 (28.0-62.0) fl RDW Coeff of Stephane 17 H (11.0-15.0) % Plt Count 65 L (150-400) K/uL MPV 11.30 (7.40-12.00) fL Neut % (Auto) 41.2 L (48.0-80.0) % Lymph % (Auto) 44.7 H (16.0-40.0) % Eagle % (Auto) 12.9 (0.0-15.0) % Eos % (Auto) 0.6 (0.0-7.0) % Baso % (Auto) 0.6 (0.0-1.5) % Neut # (Auto) 1.3 L (1.4-5.7) K/uL Lymph # (Auto) 1.4 (0.6-2.4) K/uL Eagle # (Auto) 0.4 (0.0-0.8) K/uL Eos # (Auto) 0.0 (0.0-0.7) K/uL Baso # (Auto) 0.0 (0.0-0.1) K/uL Nucleated RBC % 0.0 /100WBC Nucleated RBCs # 0 K/uL INR 1.07 Sodium 147 (136-148) mmol/L Potassium 3.5 (3.5-5.1) mmol/L Chloride 103 (98-107) mmol/L Carbon Dioxide 27.5 (21.0-32.0) mmol/L BUN 5 L (7.0-18.0) mg/dL Creatinine 0.6 L (0.8-1.3) mg/dL Est Cr Clr Drug Dosing 118.12 mL/min Estimated GFR (MDRD) > 60.0 ml/min Glucose 79 (74-106) mg/dL Calcium 8.9 (8.5-10.1) mg/dL Magnesium 1.4 L (1.8-2.4) mg/dL Total Bilirubin 1.6 H (0.2-1.0) mg/dL AST 210 H (15-37) IU/L ALT 78 H (14-63) IU/L Alkaline Phosphatase 121 H (46-116) U/L Creatine Kinase 286 (26-308) U/L Total Protein 7.9 (6.4-8.2) g/dL Albumin 3.7 (3.4-5.0) g/dL Globulin 4.2 H (2.6-4.0) g/dL Albumin/Globulin Ratio 0.9 (0.9-1.6) Ethyl Alcohol 343 mg/dL Meds: Medications Discontinued Medications Generic Name Dose Route Start Last Admin Trade Name Freq PRN Reason Stop Dose Admin Folic Acid 1 mg 04/15/20 14:53 04/15/20 16:05 Folic Acid IV 04/15/20 14:54 1 mg STAT STA Administration Sodium Chloride 1,000 mls @ 999 mls/hr 04/15/20 14:52 04/15/20 16:06 Normal Saline IV 04/15/20 15:52 999 mls/hr .Bolus ONE Administration Thiamine HCl 100 mg/ Sodium 101 mls @ 202 mls/hr 04/15/20 14:52 04/15/20 16:05 Chloride IV 04/15/20 14:53 202 mls/hr ONETIME ONE Administration Sodium Chloride 1,000 mls @ 150 mls/hr 04/15/20 17:00 04/15/20 17:11 Normal Saline IV 150 mls/hr ASDIRECTED MARCEL Administration Sodium Chloride 10 ml 04/15/20 14:50 04/15/20 16:08 Saline Flush FLUSH 10 ml ASDIRECTED PRN Administration Keep Vein Open Sodium Chloride 2.5 ml 04/15/20 14:50 04/15/20 16:09 Saline Flush FLUSH 2.5 ml ASDIRECTED PRN Administration Keep Vein Open - Re-Assessments/Exams Free Text/Narrative Re-Assessment/Exam: 04/15/20 19:35 Patient is now clinically sober and able to ambulate to the bathroom without assistance. Patient also tolerating p.o. Patient has a friend who is here this open can take patient home. Departure - Departure Time of Disposition: 19:35 Sepsis Event Note (ED) - Focused Exam Vital Signs: Vital Signs Temp Pulse Resp BP Pulse Ox 04/15/20 19:11 98.7 F 86 18 162/111 H 95 04/15/20 14:55 153/93 H 04/15/20 14:52 98.5 F 102 H 17 164/113 H 95
--- NOTE | 2020-04-15 15:50 | CR ---
INDICATION: Weakness. TECHNIQUE: AP portable chest x-ray. COMPARISON: Chest x-ray 02/17/2020. FINDINGS: Eventration right hemidiaphragm more prominent. Eventration of the left hemidiaphragm which is stable versus small amount of atelectasis in the left lung base. Lungs are otherwise clear without focal dense infiltrate or consolidation. Heart size normal. Mild chronic deformity of a left mid to lower posterior rib may be related to prior trauma. Chest otherwise negative without acute disease. Dictated by Nick Roque MD @ Apr 15 2020 3:48PM Signed by Dr. Nick Roque @ Apr 15 2020 3:48PM
--- NOTE | 2020-04-15 15:54 | CT ---
INDICATION: Weakness. TECHNIQUE: CT head without IV contrast. COMPARISON: CT head 02/17/2020. FINDINGS: Moderate mucosal thickening involving right maxillary sinus not included on the prior exam. Mild fluid and mucosal thickening in bilateral ethmoidal and frontal sinuses. Minimal fluid and mucosal thickening left sphenoid sinus. Findings consistent with mild sinusitis which is either new or not included on the prior study. Asymmetric soft tissue prominence in the left lateral scalp compared to the right lateral scalp is stable. No intracranial hemorrhage, edema, or mass effect. Mild to moderate cerebral atrophy stable. Moderate cerebellar atrophy is stable. Mild to moderate dilatation of the 3rd ventricle is stable and likely related the underlying atrophy. Remainder negative. IMPRESSION: 1. No acute intracranial disease. 2. Stable cerebral and cerebellar atrophy. Other chronic intracranial disease as above. 3. Mild sinusitis new. Please note that all CT scans at this facility use dose modulation, iterative reconstruction, and/or weight-based dosing when appropriate to reduce radiation dose to as low as reasonably achievable. Dictated by Nick Roque MD @ Apr 15 2020 3:52PM Signed by Dr. Nick Roque @ Apr 15 2020 3:52PM
[2020-04-15 16:32] LABS: BLOOD UREA NITROGEN,BUN 5 mg/dL (7.0-18.0); CARBON DIOXIDE,CO2 27.5 mmol/L (21.0-32.0); CHLORIDE,CL 103 mmol/L (98-107); GLUCOSE RANDOM 79 mg/dL (74-106); SODIUM,NA 147 mmol/L (136-148)
[2020-04-15 16:37] LABS: POTASSIUM,K 3.5 mmol/L (3.5-5.1)
[2020-04-15] MEDS ORDERED: Sodium Chloride 0.9% 1,000 ML IV SCH (17:00)
== END 2020-04-15 19:25 | disposition home or self-care (01) ==
LOC: MW.ED 14:46
DX: F10.129 Alcohol abuse with intoxication, unspecified (principal); I10 Essential (primary) hypertension; Y90.8 Blood alcohol level of 240 mg/100 ml or more
CPT/HCPCS: 70450; 71045; 80053; 80307; 82550; 83735; 85025; 85610; 93005; 96365; 96375; 99285; J3411; J7030; 93010; 99284

== ENCOUNTER 2020-06-04 19:33 | Inpatient (IN) | payer MEDICARE, MEDICAID ==
[2020-06-04] MEDS ORDERED: Sodium Chloride 0.9% 1,000 ML IV ONE (19:38)
--- NOTE | 2020-06-04 19:44 | PCM.SN.2 ---
- Free Text/Narrative Note: EKG obtained at 1937 interpreted by myself demonstrates sinus tachycardia with a rate of 101 there is significant baseline wander and artifact there is some nonspecific ST changes laterally but no findings of clear acute ischemia and no STEMI
--- NOTE | 2020-06-04 19:47 | EDM.PDOC ---
ED HPI GENERAL MEDICAL PROBLEM - General Stated Complaint: NOSE BLEED Time Seen by Provider: 06/04/20 19:46 Source of Information: Reports: Patient, EMS History Limitations: Reports: No Limitations - History of Present Illness INITIAL COMMENTS - FREE TEXT/NARRATIVE: HISTORY AND PHYSICAL: History of present illness: Patient is a 65-year-old male who presents to the emergency room with complaints of nosebleed. EMS was called to the patient's residence as he states he has had a nosebleed since 9 AM. He has also not eaten or drank anything and states that has made him "very weak". When EMS arrived they state he was unable to walk by himself to the cot and needed assistance. Blood pressure was elevated 180/120's. Upon arrival to the ED the patient does have an epistaxis to the left nare, minimal and controlled with pressure. He also appears very tremulous and slow to verbally respond to any of the questions that are being asked. Patient states he is a routine drinker, with his last drink was 3 days ago. He does not state how much he drinks on a routine basis. Reviewing the patient's chart I see that he does have a history of chronic alcohol abuse, Wernicke's encephalopathy, elevated liver functions and frequent falls due to weakness and/or alcohol abuse. Patient denies any fall, trauma or injury that would have caused his nosebleed. Review of systems: As per history of present illness and below otherwise all systems reviewed and negative. Past medical history: As per history of present illness and as reviewed below otherwise noncontributory. Surgical history: As per history of present illness and as reviewed below otherwise noncontributory. Social history: See social history for further information Family history: As per history of present illness and as reviewed below otherwise noncontributory. Physical exam: General: Well developed and well nourished. Alert and orientated x 3. Nontoxic in appearance and in no acute distress. Vital signs are stable and have been reviewed by me. Nursing notes were reviewed. HEENT: Atraumatic, normocephalic, pupils equal and reactive bilaterally, negative for conjunctival pallor or scleral icterus, nystagmus noted, mucous membranes moist, anterior nose bleed of the left nare. TMs normal bilaterally, throat clear, neck supple, nontender, trachea midline. No drooling or trismus noted. No meningeal signs. No hot potato voice noted. Lungs: Clear to auscultation bilaterally. No wheezes, rales, or rhonchi. Chest nontender. Normal work of breathing, no accessory muscles used. Heart: S1S2, regular rate and rhythm without overt murmur, gallops, or rubs. No JVD. No peripheral edema Abdomen: Soft, nondistended, nontender. Normoactive bowel sounds. Negative for masses or costovertebral tenderness. Pelvis: Stable nontender. Skin: Intact, warm, dry. No lesions or rashes noted. Hematologic: No petechiae or purpra. Mucosa appropriate color and normal nail bed color and refill. Extremities: Atraumatic, ataxia noted, moves all extremities per self without difficulty or deficits. Neurovascular unremarkable. Neuro: Awake, alert, oriented. Motor and sensory unremarkable throughout. Exam nonfocal. Psychiatric: Mood and affect are appropriate. Slowed, but normal thought process. Answering questions appropriately. Notes: *This patient was seen and evaluated during the 2019 SARS-CoV-2 novel coronavirus pandemic period. Community viral transmission is ongoing at time of this encounter and the emergency department is operating under pandemic response procedures. Usual and customary procedures were followed for Rhino-rocket insert. A 6.5 Rhino-rocket was inserted into the left nare; patient tolerated well. I am more concerned about the patients hypertension, tremors and weakness. He is agreeable to additional evaluation for this. Will perform lab work based on todays findings and PMH. CIWA 8-9, will give him Ativan for his tremors. Patient CPK is 765, magnesium low at 1.6, alcohol is 17. Appears to be in alcohol withdrawl. Concerned for Wernicke due to patient history and current physical exam. Patient is receiving IV fluids/banana bag with thiamine. We will replace magnesium IV as well. Patient is very unsteady on his feet. He is weak and unable to ambulate without assistance. Bleeding has stopped with the rhino-rocket although he continues to mess with dressing/packing. Negative COVID screening. CXR unremarkable. I feel the patient will do best by staying overnight for further care and management. Dr. Carmona, hospitalist on- call, was consulted on this case and agreeable to keeping him for further care. [facility]. Although patient is hesitant for admission he is agreeable. We reviewed his diagnostic results and need for admission. Vital signs have improved since arrival. CIWA: 7 Diagnostics: CBC, CMP, Troponin, EKG, CXR, ETOH, Magnesium Therapeutics: IV fluids, Ativan, Banana Bag, Impression: Epistaxis, Left Mild rhabdomyolysis Wernicke Weakness Plan: Observation admission to [facility] Definitive disposition and diagnosis as appropriate pending reevaluation and review of above. - Related Data Allergies Allergy/AdvReac Type Severity Reaction Status Date / Time No Known Allergies Allergy Verified 06/04/20 19:40 Home Meds: Home Meds . [No Known Home Meds] 04/15/20 [History] Past Medical History - Past Health History Medical/Surgical History: Denies Medical/Surgical History HEENT History: Reports: None Cardiovascular History: Reports: High Cholesterol, Hypertension Respiratory History: Reports: None Gastrointestinal History: Reports: GI Bleed Genitourinary History: Reports: None Musculoskeletal History: Reports: None Neurological History: Reports: None Psychiatric History: Reports: None Endocrine/Metabolic History: Reports: None Hematologic History: Reports: None Immunologic History: Reports: None Oncologic (Cancer) History: Reports: None Dermatologic History: Reports: None - Infectious Disease History Infectious Disease History: Reports: None - Past Surgical History Head Surgeries/Procedures: Reports: None HEENT Surgical History: Reports: None Cardiovascular Surgical History: Reports: None Respiratory Surgical History: Reports: None GI Surgical History: Reports: EGD Male Surgical History: Reports: None Endocrine Surgical History: Reports: None Neurological Surgical History: Reports: None Musculoskeletal Surgical History: Reports: None Oncologic Surgical History: Reports: None Dermatological Surgical History: Reports: None Social & Family History - Family History Family Medical History: No Pertinent Family History - Caffeine Use Caffeine Use: Reports: None Caffeine Use Comment: once in a while use of coffee. ED ROS ENT - Review of Systems Review Of Systems: Comprehensive ROS is negative, except as noted in HPI. ED EXAM, ENT - Physical Exam Exam: See Below (See dictation) Course - Vital Signs Last Recorded V/S: Last Vital Signs Temp 98.6 F 06/04/20 20:45 Pulse 81 06/04/20 20:45 Resp 18 06/04/20 20:45 BP 153/84 H 06/04/20 20:45 Pulse Ox 95 01/24/21 20:45 - Orders/Labs/Meds Orders: Active Orders 24 hr Category Date Time Status Cardiac Monitoring [RC] . DIRECTED Care 06/04/20 19:38 Active Communication Order [RC] STAT Care 06/04/20 19:52 Active EKG Documentation Completion [RC] STAT Care 06/04/20 19:38 Active Glucose [Blood Glucose Check, Bedside] [RC] ONETIME Care 06/04/20 19:46 Active UA RFX LEO AND CULT IF INDIC [URIN] Stat Lab 06/04/20 19:38 Ordered Magnesium Sulfate/Water [Magnesium Sulfate in Water 2 Med 06/04/20 20:45 Active GM/50 ML] 2 gm in 50 ml IV ONETIME Medication Orders Magnesium Sulfate (Magnesium Sulfate In Water 2 Gm/50 Ml) 2 gm in 50 mls @ 50 mls/hr IV ONETIME MARCEL Last Admin: 06/04/20 21:02 Dose: 50 mls/hr Documented by: TERRENCE Lorazepam (Ativan) 0 mg IVPUSH Q4H PRN; Protocol PRN Reason: Withdrawal Symptoms Labs: Laboratory Tests 06/04/20 06/04/20 06/04/20 Range/Units 19:25 19:25 19:25 WBC 5.46 (4.0-11.0) K/uL RBC 4.72 (4.50-5.90) M/uL Hgb 15.2 (13.0-17.0) g/dL Hct 42.8 (38.0-50.0) % MCV 90.7 (80.0-98.0) fL MCH 32.2 H (27.0-32.0) pg MCHC 35.5 (31.0-37.0) g/dL RDW Std Deviation 53.9 (28.0-62.0) fl RDW Coeff of Stephane 16 H (11.0-15.0) % Plt Count 113 L (150-400) K/uL Neut % (Auto) 65.4 (48.0-80.0) % Lymph % (Auto) 22.9 (16.0-40.0) % M[place]ulloch % (Auto) 11.5 (0.0-15.0) % Eos % (Auto) 0.0 (0.0-7.0) % Baso % (Auto) 0.2 (0.0-1.5) % Neut # (Auto) 3.6 (1.4-5.7) K/uL Lymph # (Auto) 1.3 (0.6-2.4) K/uL [place]och # (Auto) 0.6 (0.0-0.8) K/uL Eos # (Auto) 0.0 (0.0-0.7) K/uL Baso # (Auto) 0.0 (0.0-0.1) K/uL Nucleated RBC % 0.0 /100WBC Nucleated RBCs # 0 K/uL INR 1.02 Sodium 140 (136-148) mmol/L Potassium 4.0 (3.5-5.1) mmol/L Chloride 97 L (98-107) mmol/L Carbon Dioxide 26.0 (21.0-32.0) mmol/L BUN 6 L (7.0-18.0) mg/dL Creatinine 0.9 (0.8-1.3) mg/dL Est Cr Clr Drug Dosing TNP Estimated GFR (MDRD) > 60.0 ml/min Glucose 133 H (74-106) mg/dL POC Glucose (60-110) mg/dL Calcium 10.1 (8.5-10.1) mg/dL Magnesium (1.8-2.4) mg/dL Total Bilirubin 1.3 H (0.2-1.0) mg/dL AST 137 H (15-37) IU/L ALT 37 (14-63) IU/L Alkaline Phosphatase 106 (46-116) U/L Creatine Kinase (26-308) U/L Troponin I < 0.050 (0.000-0.056) ng/mL Total Protein 8.7 H (6.4-8.2) g/dL Albumin 3.8 (3.4-5.0) g/dL Globulin 4.9 H (2.6-4.0) g/dL Albumin/Globulin Ratio 0.8 L (0.9-1.6) Lipase (73-393) U/L Ethyl Alcohol 17 mg/dL SARS-CoV-2 RNA (EMANI) (NEGATIVE) 06/04/20 06/04/20 06/04/20 Range/Units 19:25 19:35 20:00 WBC (4.0-11.0) K/uL RBC (4.50-5.90) M/uL Hgb (13.0-17.0) g/dL Hct (38.0-50.0) % MCV (80.0-98.0) fL MCH (27.0-32.0) pg MCHC (31.0-37.0) g/dL RDW Std Deviation (28.0-62.0) fl RDW Coeff of Stephane (11.0-15.0) % Plt Count (150-400) K/uL Neut % (Auto) (48.0-80.0) % Lymph % (Auto) (16.0-40.0) % [place]och % (Auto) (0.0-15.0) % Eos % (Auto) (0.0-7.0) % Baso % (Auto) (0.0-1.5) % Neut # (Auto) (1.4-5.7) K/uL Lymph # (Auto) (0.6-2.4) K/uL [place]ulloch # (Auto) (0.0-0.8) K/uL Eos # (Auto) (0.0-0.7) K/uL Baso # (Auto) (0.0-0.1) K/uL Nucleated RBC % /100WBC Nucleated RBCs # K/uL INR Sodium (136-148) mmol/L Potassium (3.5-5.1) mmol/L Chloride (98-107) mmol/L Carbon Dioxide (21.0-32.0) mmol/L BUN (7.0-18.0) mg/dL Creatinine (0.8-1.3) mg/dL Est Cr Clr Drug Dosing Estimated GFR (MDRD) ml/min Glucose (74-106) mg/dL POC Glucose (60-110) mg/dL Calcium (8.5-10.1) mg/dL Magnesium 1.6 L (1.8-2.4) mg/dL Total Bilirubin (0.2-1.0) mg/dL AST (15-37) IU/L ALT (14-63) IU/L Alkaline Phosphatase (46-116) U/L Creatine Kinase 765 H (26-308) U/L Troponin I (0.000-0.056) ng/mL Total Protein (6.4-8.2) g/dL Albumin (3.4-5.0) g/dL Globulin (2.6-4.0) g/dL Albumin/Globulin Ratio (0.9-1.6) Lipase 140 (73-393) U/L Ethyl Alcohol mg/dL SARS-CoV-2 RNA (EMANI) NEGATIVE (NEGATIVE) 06/04/20 Range/Units 20:00 WBC (4.0-11.0) K/uL RBC (4.50-5.90) M/uL Hgb (13.0-17.0) g/dL Hct (38.0-50.0) % MCV (80.0-98.0) fL MCH (27.0-32.0) pg MCHC (31.0-37.0) g/dL RDW Std Deviation (28.0-62.0) fl RDW Coeff of Stephane (11.0-15.0) % Plt Count (150-400) K/uL Neut % (Auto) (48.0-80.0) % Lymph % (Auto) (16.0-40.0) % [place]ulloch % (Auto) (0.0-15.0) % Eos % (Auto) (0.0-7.0) % Baso % (Auto) (0.0-1.5) % Neut # (Auto) (1.4-5.7) K/uL Lymph # (Auto) (0.6-2.4) K/uL [place]ulloch # (Auto) (0.0-0.8) K/uL Eos # (Auto) (0.0-0.7) K/uL Baso # (Auto) (0.0-0.1) K/uL Nucleated RBC % /100WBC Nucleated RBCs # K/uL INR Sodium (136-148) mmol/L Potassium (3.5-5.1) mmol/L Chloride (98-107) mmol/L Carbon Dioxide (21.0-32.0) mmol/L BUN (7.0-18.0) mg/dL Creatinine (0.8-1.3) mg/dL Est Cr Clr Drug Dosing Estimated GFR (MDRD) ml/min Glucose (74-106) mg/dL POC Glucose 114 H (60-110) mg/dL Calcium (8.5-10.1) mg/dL Magnesium (1.8-2.4) mg/dL Total Bilirubin (0.2-1.0) mg/dL AST (15-37) IU/L ALT (14-63) IU/L Alkaline Phosphatase (46-116) U/L Creatine Kinase (26-308) U/L Troponin I (0.000-0.056) ng/mL Total Protein (6.4-8.2) g/dL Albumin (3.4-5.0) g/dL Globulin (2.6-4.0) g/dL Albumin/Globulin Ratio (0.9-1.6) Lipase (73-393) U/L Ethyl Alcohol mg/dL SARS-CoV-2 RNA (EMANI) (NEGATIVE) Meds: Medications Generic Name Dose Route Start Last Admin Trade Name Nandini PRN Reason Stop Dose Admin Magnesium Sulfate 2 gm in 50 mls @ 50 mls/hr 06/04/20 20:45 06/04/20 21:02 Magnesium Sulfate In Water 2 Gm/50 Ml IV 50 mls/hr ONETIME MARCEL Administration Lorazepam 0 mg 06/04/20 21:12 Ativan IVPUSH Q4H PRN Withdrawal Symptoms Protocol Discontinued Medications Generic Name Dose Route Start Last Admin Trade Name Nandini PRN Reason Stop Dose Admin Sodium Chloride 1,000 mls @ 999 mls/hr 06/04/20 19:38 06/04/20 19:50 Normal Saline IV 06/04/20 20:38 999 mls/hr STAT ONE Administration Multivitamins/Minerals 10 ml/ 1,011.2 mls @ 999 mls/hr 06/04/20 19:52 06/04/20 20:27 Thiamine HCl 100 mg/ Folic IV 06/04/20 20:52 999 mls/hr Acid 1 mg/ Sodium Chloride ONETIME ONE Administration Magnesium Sulfate Confirm 06/04/20 20:57 06/04/20 21:04 Magnesium Sulfate In Water 2 Gm/50 Ml Administered 06/04/20 20:58 Not Given Dose 2 gm in 50 mls @ as directed .ROUTE .STK-MED ONE Lorazepam 1 mg 06/04/20 19:49 06/04/20 19:52 Ativan IVPUSH 06/04/20 19:50 1 mg ONETIME ONE Administration Departure - Departure Time of Disposition: 21:02 Disposition: Home, Self-Care 01 Clinical Impression: Wernicke's disease, Weakness, Hypomagnesemia, Epistaxis Rhabdomyolysis Qualifiers: Rhabdomyolysis type: non-traumatic Qualified Code(s): M62.82 - Rhabdomyolysis - Discharge Information Sepsis Event Note (ED) - Evaluation Sepsis Screening Result: No Definite Risk - Focused Exam Vital Signs: Vital Signs Temp Pulse Resp BP Pulse Ox 06/04/20 20:45 98.6 F 81 18 153/84 H 95 06/04/20 20:10 169/89 H 06/04/20 19:54 104 H 18 169/108 H 96 06/04/20 19:40 99.1 F 108 H 18 176/119 H 96 - My Orders Last 24 Hours: My Active Orders 06/04/20 19:38 Cardiac Monitoring [RC] . DIRECTED EKG Documentation Completion [RC] STAT UA RFX LEO AND CULT IF INDIC [URIN] Stat 06/04/20 19:46 Glucose [Blood Glucose Check, Bedside] [RC] ONETIME 06/04/20 19:52 Communication Order [RC] STAT 06/04/20 20:45 Magnesium Sulfate/Water [Magnesium Sulfate in Water 2 GM/50 ML] 2 gm in 50 ml IV ONETIME - Assessment/Plan Last 24 Hours: My Active Orders 06/04/20 19:38 Cardiac Monitoring [RC] . DIRECTED EKG Documentation Completion [RC] STAT UA RFX LEO AND CULT IF INDIC [URIN] Stat 06/04/20 19:46 Glucose [Blood Glucose Check, Bedside] [RC] ONETIME 06/04/20 19:52 Communication Order [RC] STAT 06/04/20 20:45 Magnesium Sulfate/Water [Magnesium Sulfate in Water 2 GM/50 ML] 2 gm in 50 ml IV ONETIME
[2020-06-04] MEDS ORDERED: LORazepam 2 MG/ML SDV IVPUSH ONE (19:49)
[2020-06-04] MEDS ORDERED: MVI, Adult with Vitamin K 10 ML, Thiamine 100 MG, Folic Acid 1 MG in Sodium Chloride 0.... IV ONE ×4 (19:52)
[2020-06-04 20:07] LABS: BLOOD UREA NITROGEN,BUN 6 mg/dL (7.0-18.0); CHLORIDE,CL 97 mmol/L (98-107); GLUCOSE RANDOM 133 mg/dL (74-106); SODIUM,NA 140 mmol/L (136-148)
[2020-06-04 20:12] LABS: LIPASE 140 U/L (73-393)
[2020-06-04] MEDS ORDERED: Magnesium Sulfate/Water 2 GM/50 ML BAG IV SCH (20:45)
[2020-06-04] MEDS ORDERED: Magnesium Sulfate/Water 2 GM/50 ML BAG ONE (20:57)
[2020-06-04] MEDS ORDERED: LORazepam 2 MG/ML SDV IVPUSH PRN (21:12)
--- NOTE | 2020-06-04 21:16 | CR ---
INDICATION: Hypertension. Nose bleed. TECHNIQUE: Chest 1 view. COMPARISON: None FINDINGS: Cardiovascular and mediastinum: Heart size and vasculature are normal in caliber and appearance. Mediastinum is within normal limits. Lungs and pleural space: Lungs are clear. No sign of infiltrate or mass. No sign of pleural effusion. No pneumothorax. Bones and soft tissues: No significant findings. IMPRESSION: Lungs are clear. Dictated by Yasir Park MD @ Jun 04 2020 9:13PM Signed by Dr. Yasir Park @ Jun 04 2020 9:14PM
--- NOTE | 2020-06-04 23:54 | PCM.HP.2 ---
H&P History of Present Illness - General Date of Service: 06/05/20 Admit Problem/Dx: Admission Diagnosis/Problem Admission Diagnosis/Problem Wernicke's disease - History of Present Illness Initial Comments - Free Text/Narative: 65 yo male with pmh of ETHOH abuse who presents to the ED with complaint of nose bleed. Patient also report generalized weakness and difficulty walking. HE has not been eating much at home. He denies drinking daily but when he does drink he drinks more than four drinks at a time. IN the ED he was noted to be tremulous and was given ativan. He has been treated for Wernicke's encephalopathy in the past. - Related Data Allergies/Adverse Reactions: Allergies Allergy/AdvReac Type Severity Reaction Status Date / Time No Known Allergies Allergy Verified 06/04/20 22:48 Home Medications: Home Meds . [No Known Home Meds] 04/15/20 [History] Past Medical History - Past Health History Medical/Surgical History: Denies Medical/Surgical History HEENT History: Reports: None Cardiovascular History: Reports: High Cholesterol, Hypertension Respiratory History: Reports: None Gastrointestinal History: Reports: GI Bleed Genitourinary History: Reports: None Musculoskeletal History: Reports: None Neurological History: Reports: None Psychiatric History: Reports: None Endocrine/Metabolic History: Reports: None Hematologic History: Reports: None Immunologic History: Reports: None Oncologic (Cancer) History: Reports: None Dermatologic History: Reports: None - Infectious Disease History Infectious Disease History: Reports: None - Past Surgical History Head Surgeries/Procedures: Reports: None HEENT Surgical History: Reports: None Cardiovascular Surgical History: Reports: None Respiratory Surgical History: Reports: None GI Surgical History: Reports: EGD Male Surgical History: Reports: None Endocrine Surgical History: Reports: None Neurological Surgical History: Reports: None Musculoskeletal Surgical History: Reports: None Oncologic Surgical History: Reports: None Dermatological Surgical History: Reports: None Social & Family History - Family History Family Medical History: No Pertinent Family History - Caffeine Use Caffeine Use: Reports: None Caffeine Use Comment: once in a while use of coffee. - Recreational Drug Use Recreational Drug Use: No H&P Review of Systems - Review of Systems: Review Of Systems: Comprehensive ROS is negative, except as noted in HPI. Exam - Exam Exam: See Below - Vital Signs Vital Signs: Last Vital Signs Temp 37.2 C 06/04/20 22:36 Pulse 90 06/04/20 22:36 Resp 18 06/04/20 22:36 BP 150/92 H 06/04/20 22:36 Pulse Ox 98 06/04/20 22:36 Weight: 64.2 kg - Exam General: Alert, Oriented HEENT: Mucosa Moist & [place] Lungs: Clear to Auscultation, Normal Respiratory Effort Cardiovascular: Regular Rate, Regular Rhythm GI/Abdominal Exam: Normal Bowel Sounds, Soft, Non-Tender Extremities: No Pedal Edema Skin: Warm, Dry Neurological: Cranial Nerves Intact, Reflexes Equal Bilateral, Strength Equal Bilateral, Normal Tone - Patient Data Lab Results Last 24 hrs: Laboratory Results - last 24 hr 06/04/20 06/04/20 06/04/20 Range/Units 19:25 19:25 19:25 WBC 5.46 (4.0-11.0) K/uL RBC 4.72 (4.50-5.90) M/uL Hgb 15.2 (13.0-17.0) g/dL Hct 42.8 (38.0-50.0) % MCV 90.7 (80.0-98.0) fL MCH 32.2 H (27.0-32.0) pg MCHC 35.5 (31.0-37.0) g/dL RDW Std Deviation 53.9 (28.0-62.0) fl RDW Coeff of Stephane 16 H (11.0-15.0) % Plt Count 113 L (150-400) K/uL Neut % (Auto) 65.4 (48.0-80.0) % Lymph % (Auto) 22.9 (16.0-40.0) % [place]he % (Auto) 11.5 (0.0-15.0) % Eos % (Auto) 0.0 (0.0-7.0) % Baso % (Auto) 0.2 (0.0-1.5) % Neut # (Auto) 3.6 (1.4-5.7) K/uL Lymph # (Auto) 1.3 (0.6-2.4) K/uL [place]he # (Auto) 0.6 (0.0-0.8) K/uL Eos # (Auto) 0.0 (0.0-0.7) K/uL Baso # (Auto) 0.0 (0.0-0.1) K/uL Nucleated RBC % 0.0 /100WBC Nucleated RBCs # 0 K/uL INR 1.02 Sodium 140 (136-148) mmol/L Potassium 4.0 (3.5-5.1) mmol/L Chloride 97 L (98-107) mmol/L Carbon Dioxide 26.0 (21.0-32.0) mmol/L BUN 6 L (7.0-18.0) mg/dL Creatinine 0.9 (0.8-1.3) mg/dL Est Cr Clr Drug Dosing TNP Estimated GFR (MDRD) > 60.0 ml/min Glucose 133 H (74-106) mg/dL POC Glucose (60-110) mg/dL Calcium 10.1 (8.5-10.1) mg/dL Magnesium (1.8-2.4) mg/dL Total Bilirubin 1.3 H (0.2-1.0) mg/dL AST 137 H (15-37) IU/L ALT 37 (14-63) IU/L Alkaline Phosphatase 106 (46-116) U/L Creatine Kinase (26-308) U/L Troponin I < 0.050 (0.000-0.056) ng/mL Total Protein 8.7 H (6.4-8.2) g/dL Albumin 3.8 (3.4-5.0) g/dL Globulin 4.9 H (2.6-4.0) g/dL Albumin/Globulin Ratio 0.8 L (0.9-1.6) Lipase (73-393) U/L Ethyl Alcohol 17 mg/dL SARS-CoV-2 RNA (EMANI) (NEGATIVE) 06/04/20 06/04/20 06/04/20 Range/Units 19:25 19:35 20:00 WBC (4.0-11.0) K/uL RBC (4.50-5.90) M/uL Hgb (13.0-17.0) g/dL Hct (38.0-50.0) % MCV (80.0-98.0) fL MCH (27.0-32.0) pg MCHC (31.0-37.0) g/dL RDW Std Deviation (28.0-62.0) fl RDW Coeff of Stephane (11.0-15.0) % Plt Count (150-400) K/uL Neut % (Auto) (48.0-80.0) % Lymph % (Auto) (16.0-40.0) % [place]he % (Auto) (0.0-15.0) % Eos % (Auto) (0.0-7.0) % Baso % (Auto) (0.0-1.5) % Neut # (Auto) (1.4-5.7) K/uL Lymph # (Auto) (0.6-2.4) K/uL [place]he # (Auto) (0.0-0.8) K/uL Eos # (Auto) (0.0-0.7) K/uL Baso # (Auto) (0.0-0.1) K/uL Nucleated RBC % /100WBC Nucleated RBCs # K/uL INR Sodium (136-148) mmol/L Potassium (3.5-5.1) mmol/L Chloride (98-107) mmol/L Carbon Dioxide (21.0-32.0) mmol/L BUN (7.0-18.0) mg/dL Creatinine (0.8-1.3) mg/dL Est Cr Clr Drug Dosing Estimated GFR (MDRD) ml/min Glucose (74-106) mg/dL POC Glucose (60-110) mg/dL Calcium (8.5-10.1) mg/dL Magnesium 1.6 L (1.8-2.4) mg/dL Total Bilirubin (0.2-1.0) mg/dL AST (15-37) IU/L ALT (14-63) IU/L Alkaline Phosphatase (46-116) U/L Creatine Kinase 765 H (26-308) U/L Troponin I (0.000-0.056) ng/mL Total Protein (6.4-8.2) g/dL Albumin (3.4-5.0) g/dL Globulin (2.6-4.0) g/dL Albumin/Globulin Ratio (0.9-1.6) Lipase 140 (73-393) U/L Ethyl Alcohol mg/dL SARS-CoV-2 RNA (EMANI) NEGATIVE (NEGATIVE) 06/04/20 Range/Units 20:00 WBC (4.0-11.0) K/uL RBC (4.50-5.90) M/uL Hgb (13.0-17.0) g/dL Hct (38.0-50.0) % MCV (80.0-98.0) fL MCH (27.0-32.0) pg MCHC (31.0-37.0) g/dL RDW Std Deviation (28.0-62.0) fl RDW Coeff of Stephane (11.0-15.0) % Plt Count (150-400) K/uL Neut % (Auto) (48.0-80.0) % Lymph % (Auto) (16.0-40.0) % [place]he % (Auto) (0.0-15.0) % Eos % (Auto) (0.0-7.0) % Baso % (Auto) (0.0-1.5) % Neut # (Auto) (1.4-5.7) K/uL Lymph # (Auto) (0.6-2.4) K/uL [place]he # (Auto) (0.0-0.8) K/uL Eos # (Auto) (0.0-0.7) K/uL Baso # (Auto) (0.0-0.1) K/uL Nucleated RBC % /100WBC Nucleated RBCs # K/uL INR Sodium (136-148) mmol/L Potassium (3.5-5.1) mmol/L Chloride (98-107) mmol/L Carbon Dioxide (21.0-32.0) mmol/L BUN (7.0-18.0) mg/dL Creatinine (0.8-1.3) mg/dL Est Cr Clr Drug Dosing Estimated GFR (MDRD) ml/min Glucose (74-106) mg/dL POC Glucose 114 H (60-110) mg/dL Calcium (8.5-10.1) mg/dL Magnesium (1.8-2.4) mg/dL Total Bilirubin (0.2-1.0) mg/dL AST (15-37) IU/L ALT (14-63) IU/L Alkaline Phosphatase (46-116) U/L Creatine Kinase (26-308) U/L Troponin I (0.000-0.056) ng/mL Total Protein (6.4-8.2) g/dL Albumin (3.4-5.0) g/dL Globulin (2.6-4.0) g/dL Albumin/Globulin Ratio (0.9-1.6) Lipase (73-393) U/L Ethyl Alcohol mg/dL SARS-CoV-2 RNA (EMANI) (NEGATIVE) Result Diagrams: 06/05/20 05:45 06/05/20 15:06 Sepsis Event Note - Evaluation Sepsis Screening Result: No Definite Risk - Focused Exam Vital Signs: Vital Signs Temp Pulse Resp BP Pulse Ox 06/04/20 22:36 37.2 C 90 18 150/92 H 98 06/04/20 20:45 37.0 C 81 18 153/84 H 95 06/04/20 20:10 169/89 H 06/04/20 19:54 104 H 18 169/108 H 96 06/04/20 19:40 37.3 C 108 H 18 176/119 H 96 Problem List Initiated/Reviewed/Updated: Yes Orders Last 24hrs: Active Orders 24 hr Category Date Time Status Admission Status [Patient Status] [ADT] Stat ADT 06/04/20 20:53 Active Cardiac Monitoring [RC] Q8H Care 06/04/20 19:38 Active Communication Order [RC] STAT Care 06/04/20 19:52 Active EKG Documentation Completion [RC] STAT Care 06/04/20 19:38 Active Glucose [Blood Glucose Check, Bedside] [RC] ONETIME Care 06/04/20 19:46 Active Telemetry Monitoring [Cardiac Monitoring] [RC] . Care 06/04/20 21:39 Active DIRECTED Vital Signs [RC] Q4H Care 06/04/20 21:15 Active CBC WITH AUTO DIFF [HEME] Timed Lab 06/05/20 05:00 Ordered CMP [COMPREHENSIVE METABOLIC PN,CMP] [CHEM] Timed Lab 06/05/20 05:00 Ordered UA RFX LEO AND CULT IF INDIC [URIN] Stat Lab 06/04/20 19:38 Ordered LORazepam [Ativan] Med 06/04/20 21:12 Active See Protocol IVPUSH Q4H PRN Magnesium Sulfate/Water [Magnesium Sulfate in Water 2 Med 06/04/20 20:45 Active GM/50 ML] 2 gm in 50 ml IV ONETIME Medication Orders Magnesium Sulfate (Magnesium Sulfate In Water 2 Gm/50 Ml) 2 gm in 50 mls @ 50 mls/hr IV ONETIME MARCEL Last Admin: 06/04/20 21:02 Dose: 50 mls/hr Documented by: TERRENCE Lorazepam (Ativan) 0 mg IVPUSH Q4H PRN; Protocol PRN Reason: Withdrawal Symptoms Assessment/Plan Comment:: 65 yo male admitted for ETOH abuse and ataxia ETOH abuse: will place on CIWAA protocol with IV thiamine Nosebleed: rhinorocket is in place.
[2020-06-05] MEDS ORDERED: Thiamine 500 MG in Sodium Chloride 0.9% 100 ML IV SCH (00:30)
[2020-06-05] MEDS ORDERED: Thiamine 500 MG in Sodium Chloride 0.9% 250 ML IV SCH (00:30)
[2020-06-05 06:41] LABS: BLOOD UREA NITROGEN,BUN 4 mg/dL (7.0-18.0); CARBON DIOXIDE,CO2 24.7 mmol/L (21.0-32.0); CHLORIDE,CL 99 mmol/L (98-107); GLUCOSE RANDOM 135 mg/dL (74-106); POTASSIUM,K 2.6 mmol/L (3.5-5.1); SODIUM,NA 138 mmol/L (136-148)
[2020-06-05] MEDS ORDERED: Potassium Chloride 20 MEQ Tab.ER PO ONE ×2 (08:01→16:17)
[2020-06-05] MEDS: Folic Acid 1 MG Tab PO SCH (08:12)
[2020-06-05] MEDS: Sodium Chloride 0.9% with KCl 1,000 ML IV SCH ×2 (08:16→17:03)
[2020-06-05] MEDS: Thiamine 500 MG in Sodium Chloride 0.9% 250 ML IV SCH ×2 (09:07→17:36)
[2020-06-05] MEDS ORDERED: Magnesium Sulfate/Water 2 GM/50 ML BAG IV SCH ×2 (10:15→13:00)
--- NOTE | 2020-06-05 12:37 | PCM.PN ---
- General Info Date of Service: 06/05/20 Subjective Update: Bedside: no acute pain. mentions bleeding from nose had stopped dripping into the back of his throat. Endorses last ETOH 4 days prior. No acute pain - Review of Systems General: Reports: No Symptoms HEENT: Reports: Other (epistaxis improving ) Pulmonary: Reports: No Symptoms Cardiovascular: Reports: No Symptoms Gastrointestinal: Reports: No Symptoms Genitourinary: Reports: No Symptoms Musculoskeletal: Reports: No Symptoms Neurological: Reports: Headache, Tremors Psychiatric: Reports: Depression. Denies: Confusion - Patient Data Vitals - Most Recent: Last Vital Signs Temp 98.4 F 06/05/20 12:20 Pulse 121 H 06/05/20 12:20 Resp 16 06/05/20 12:20 BP 160/92 H 06/05/20 12:20 Pulse Ox 99 06/05/20 12:20 Weight - Most Recent: 64.2 kg I&O - Last 24 Hours: Intake & Output 06/04/20 06/05/20 06/05/20 22:59 06:59 14:59 Intake Total 705 Output Total 0 Balance 705 Lab Results Last 24 Hours: Laboratory Results - last 24 hr 06/04/20 06/04/20 06/04/20 Range/Units 19:25 19:25 19:25 WBC 5.46 (4.0-11.0) K/uL RBC 4.72 (4.50-5.90) M/uL Hgb 15.2 (13.0-17.0) g/dL Hct 42.8 (38.0-50.0) % MCV 90.7 (80.0-98.0) fL MCH 32.2 H (27.0-32.0) pg MCHC 35.5 (31.0-37.0) g/dL RDW Std Deviation 53.9 (28.0-62.0) fl RDW Coeff of Stephane 16 H (11.0-15.0) % Plt Count 113 L (150-400) K/uL Neut % (Auto) 65.4 (48.0-80.0) % Lymph % (Auto) 22.9 (16.0-40.0) % Love % (Auto) 11.5 (0.0-15.0) % Eos % (Auto) 0.0 (0.0-7.0) % Baso % (Auto) 0.2 (0.0-1.5) % Neut # (Auto) 3.6 (1.4-5.7) K/uL Lymph # (Auto) 1.3 (0.6-2.4) K/uL Love # (Auto) 0.6 (0.0-0.8) K/uL Eos # (Auto) 0.0 (0.0-0.7) K/uL Baso # (Auto) 0.0 (0.0-0.1) K/uL Nucleated RBC % 0.0 /100WBC Nucleated RBCs # 0 K/uL INR 1.02 Sodium 140 (136-148) mmol/L Potassium 4.0 (3.5-5.1) mmol/L Chloride 97 L (98-107) mmol/L Carbon Dioxide 26.0 (21.0-32.0) mmol/L BUN 6 L (7.0-18.0) mg/dL Creatinine 0.9 (0.8-1.3) mg/dL Est Cr Clr Drug Dosing TNP Estimated GFR (MDRD) > 60.0 ml/min Glucose 133 H (74-106) mg/dL POC Glucose (60-110) mg/dL Calcium 10.1 (8.5-10.1) mg/dL Phosphorus (2.6-4.7) mg/dL Magnesium (1.8-2.4) mg/dL Total Bilirubin 1.3 H (0.2-1.0) mg/dL AST 137 H (15-37) IU/L ALT 37 (14-63) IU/L Alkaline Phosphatase 106 (46-116) U/L Creatine Kinase (26-308) U/L Troponin I < 0.050 (0.000-0.056) ng/mL Total Protein 8.7 H (6.4-8.2) g/dL Albumin 3.8 (3.4-5.0) g/dL Globulin 4.9 H (2.6-4.0) g/dL Albumin/Globulin Ratio 0.8 L (0.9-1.6) Lipase (73-393) U/L Urine Color Urine Appearance Urine pH (5.0-8.0) Ur Specific [place] (1.001-1.035) Urine Protein (NEGATIVE) mg/dL Urine Glucose (UA) (NEGATIVE) mg/dL Urine Ketones (NEGATIVE) mg/dL Urine Occult Blood (NEGATIVE) Urine Nitrite (NEGATIVE) Urine Bilirubin (NEGATIVE) Urine Urobilinogen (<2.0) EU/dL Ur Leukocyte Esterase (NEGATIVE) Urine RBC (0-2/HPF) Urine WBC (0-5/HPF) Ur Epithelial Cells (NONE-FEW) Urine Bacteria (NEGATIVE) Urine Mucus (NONE-MOD) Ethyl Alcohol 17 mg/dL SARS-CoV-2 RNA (EMANI) (NEGATIVE) 06/04/20 06/04/20 06/04/20 Range/Units 19:25 19:35 20:00 WBC (4.0-11.0) K/uL RBC (4.50-5.90) M/uL Hgb (13.0-17.0) g/dL Hct (38.0-50.0) % MCV (80.0-98.0) fL MCH (27.0-32.0) pg MCHC (31.0-37.0) g/dL RDW Std Deviation (28.0-62.0) fl RDW Coeff of Stephane (11.0-15.0) % Plt Count (150-400) K/uL Neut % (Auto) (48.0-80.0) % Lymph % (Auto) (16.0-40.0) % Love % (Auto) (0.0-15.0) % Eos % (Auto) (0.0-7.0) % Baso % (Auto) (0.0-1.5) % Neut # (Auto) (1.4-5.7) K/uL Lymph # (Auto) (0.6-2.4) K/uL Love # (Auto) (0.0-0.8) K/uL Eos # (Auto) (0.0-0.7) K/uL Baso # (Auto) (0.0-0.1) K/uL Nucleated RBC % /100WBC Nucleated RBCs # K/uL INR Sodium (136-148) mmol/L Potassium (3.5-5.1) mmol/L Chloride (98-107) mmol/L Carbon Dioxide (21.0-32.0) mmol/L BUN (7.0-18.0) mg/dL Creatinine (0.8-1.3) mg/dL Est Cr Clr Drug Dosing Estimated GFR (MDRD) ml/min Glucose (74-106) mg/dL POC Glucose (60-110) mg/dL Calcium (8.5-10.1) mg/dL Phosphorus (2.6-4.7) mg/dL Magnesium 1.6 L (1.8-2.4) mg/dL Total Bilirubin (0.2-1.0) mg/dL AST (15-37) IU/L ALT (14-63) IU/L Alkaline Phosphatase (46-116) U/L Creatine Kinase 765 H (26-308) U/L Troponin I (0.000-0.056) ng/mL Total Protein (6.4-8.2) g/dL Albumin (3.4-5.0) g/dL Globulin (2.6-4.0) g/dL Albumin/Globulin Ratio (0.9-1.6) Lipase 140 (73-393) U/L Urine Color Urine Appearance Urine pH (5.0-8.0) Ur Specific [place] (1.001-1.035) Urine Protein (NEGATIVE) mg/dL Urine Glucose (UA) (NEGATIVE) mg/dL Urine Ketones (NEGATIVE) mg/dL Urine Occult Blood (NEGATIVE) Urine Nitrite (NEGATIVE) Urine Bilirubin (NEGATIVE) Urine Urobilinogen (<2.0) EU/dL Ur Leukocyte Esterase (NEGATIVE) Urine RBC (0-2/HPF) Urine WBC (0-5/HPF) Ur Epithelial Cells (NONE-FEW) Urine Bacteria (NEGATIVE) Urine Mucus (NONE-MOD) Ethyl Alcohol mg/dL SARS-CoV-2 RNA (EMANI) NEGATIVE (NEGATIVE) 06/04/20 06/05/20 06/05/20 Range/Units 20:00 05:45 05:45 WBC 4.95 (4.0-11.0) K/uL RBC 3.87 L (4.50-5.90) M/uL Hgb 12.5 L (13.0-17.0) g/dL Hct 35.2 L (38.0-50.0) % MCV 91.0 (80.0-98.0) fL MCH 32.3 H (27.0-32.0) pg MCHC 35.5 (31.0-37.0) g/dL RDW Std Deviation 53.3 (28.0-62.0) fl RDW Coeff of Stephane 16 H (11.0-15.0) % Plt Count 51 L (150-400) K/uL Neut % (Auto) 50.5 (48.0-80.0) % Lymph % (Auto) 30.3 (16.0-40.0) % Love % (Auto) 18.6 H (0.0-15.0) % Eos % (Auto) 0.4 (0.0-7.0) % Baso % (Auto) 0.2 (0.0-1.5) % Neut # (Auto) 2.5 (1.4-5.7) K/uL Lymph # (Auto) 1.5 (0.6-2.4) K/uL Love # (Auto) 0.9 H (0.0-0.8) K/uL Eos # (Auto) 0.0 (0.0-0.7) K/uL Baso # (Auto) 0.0 (0.0-0.1) K/uL Nucleated RBC % 0.4 /100WBC Nucleated RBCs # 0 K/uL INR Sodium 138 (136-148) mmol/L Potassium 2.6 L (3.5-5.1) mmol/L Chloride 99 (98-107) mmol/L Carbon Dioxide 24.7 (21.0-32.0) mmol/L BUN 4 L (7.0-18.0) mg/dL Creatinine 0.8 (0.8-1.3) mg/dL Est Cr Clr Drug Dosing 82.48 Estimated GFR (MDRD) > 60.0 ml/min Glucose 135 H (74-106) mg/dL POC Glucose 114 H (60-110) mg/dL Calcium 8.4 L (8.5-10.1) mg/dL Phosphorus (2.6-4.7) mg/dL Magnesium (1.8-2.4) mg/dL Total Bilirubin 1.4 H (0.2-1.0) mg/dL AST 112 H (15-37) IU/L ALT 28 (14-63) IU/L Alkaline Phosphatase 86 (46-116) U/L Creatine Kinase (26-308) U/L Troponin I (0.000-0.056) ng/mL Total Protein 6.8 (6.4-8.2) g/dL Albumin 3.0 L (3.4-5.0) g/dL Globulin 3.8 (2.6-4.0) g/dL Albumin/Globulin Ratio 0.8 L (0.9-1.6) Lipase (73-393) U/L Urine Color Urine Appearance Urine pH (5.0-8.0) Ur Specific [place] (1.001-1.035) Urine Protein (NEGATIVE) mg/dL Urine Glucose (UA) (NEGATIVE) mg/dL Urine Ketones (NEGATIVE) mg/dL Urine Occult Blood (NEGATIVE) Urine Nitrite (NEGATIVE) Urine Bilirubin (NEGATIVE) Urine Urobilinogen (<2.0) EU/dL Ur Leukocyte Esterase (NEGATIVE) Urine RBC (0-2/HPF) Urine WBC (0-5/HPF) Ur Epithelial Cells (NONE-FEW) Urine Bacteria (NEGATIVE) Urine Mucus (NONE-MOD) Ethyl Alcohol mg/dL SARS-CoV-2 RNA (EMANI) (NEGATIVE) 06/05/20 06/05/20 06/05/20 Range/Units 05:45 05:45 09:17 WBC (4.0-11.0) K/uL RBC (4.50-5.90) M/uL Hgb (13.0-17.0) g/dL Hct (38.0-50.0) % MCV (80.0-98.0) fL MCH (27.0-32.0) pg MCHC (31.0-37.0) g/dL RDW Std Deviation (28.0-62.0) fl RDW Coeff of Stephane (11.0-15.0) % Plt Count (150-400) K/uL Neut % (Auto) (48.0-80.0) % Lymph % (Auto) (16.0-40.0) % Love % (Auto) (0.0-15.0) % Eos % (Auto) (0.0-7.0) % Baso % (Auto) (0.0-1.5) % Neut # (Auto) (1.4-5.7) K/uL Lymph # (Auto) (0.6-2.4) K/uL Love # (Auto) (0.0-0.8) K/uL Eos # (Auto) (0.0-0.7) K/uL Baso # (Auto) (0.0-0.1) K/uL Nucleated RBC % /100WBC Nucleated RBCs # K/uL INR Sodium (136-148) mmol/L Potassium (3.5-5.1) mmol/L Chloride (98-107) mmol/L Carbon Dioxide (21.0-32.0) mmol/L BUN (7.0-18.0) mg/dL Creatinine (0.8-1.3) mg/dL Est Cr Clr Drug Dosing Estimated GFR (MDRD) ml/min Glucose (74-106) mg/dL POC Glucose (60-110) mg/dL Calcium (8.5-10.1) mg/dL Phosphorus 1.6 L (2.6-4.7) mg/dL Magnesium 1.7 L (1.8-2.4) mg/dL Total Bilirubin (0.2-1.0) mg/dL AST (15-37) IU/L ALT (14-63) IU/L Alkaline Phosphatase (46-116) U/L Creatine Kinase (26-308) U/L Troponin I (0.000-0.056) ng/mL Total Protein (6.4-8.2) g/dL Albumin (3.4-5.0) g/dL Globulin (2.6-4.0) g/dL Albumin/Globulin Ratio (0.9-1.6) Lipase (73-393) U/L Urine Color YELLOW Urine Appearance CLEAR Urine pH 7.0 (5.0-8.0) Ur Specific [place] 1.020 (1.001-1.035) Urine Protein NEGATIVE (NEGATIVE) mg/dL Urine Glucose (UA) NEGATIVE (NEGATIVE) mg/dL Urine Ketones 40 H (NEGATIVE) mg/dL Urine Occult Blood TRACE-INTACT H (NEGATIVE) Urine Nitrite NEGATIVE (NEGATIVE) Urine Bilirubin NEGATIVE (NEGATIVE) Urine Urobilinogen 2.0 H (<2.0) EU/dL Ur Leukocyte Esterase NEGATIVE (NEGATIVE) Urine RBC 1-2 (0-2/HPF) Urine WBC 0-1 (0-5/HPF) Ur Epithelial Cells RARE (NONE-FEW) Urine Bacteria RARE (NEGATIVE) Urine Mucus FEW (NONE-MOD) Ethyl Alcohol mg/dL SARS-CoV-2 RNA (EMANI) (NEGATIVE) Med Orders - Current: Current Medications Folic Acid (Folic Acid) 1 mg PO DAILY [facility] Last Admin: 06/05/20 08:12 Dose: 1 mg Documented by: Potassium Chloride/Sodium Chloride (Normal Saline With 40 Meq Kcl) 1,000 mls @ 150 mls/hr IV ASDIRECTED [facility] Last Admin: 06/05/20 08:16 Dose: 150 mls/hr Documented by: Thiamine HCl 500 mg/ Sodium (Chloride) 255 mls @ 250 mls/hr IV Q8H [facility] Last Admin: 06/05/20 09:07 Dose: 250 mls/hr Documented by: Lorazepam (Ativan) 0 mg IVPUSH Q4H PRN; Protocol PRN Reason: Withdrawal Symptoms Discontinued Medications Sodium Chloride (Normal Saline) 1,000 mls @ 999 mls/hr IV STAT ONE Stop: 06/04/20 20:38 Last Admin: 06/04/20 19:50 Dose: 999 mls/hr Documented by: Multivitamins/Minerals 10 ml/Thiamine HCl 100 mg/ Folic Acid 1 mg/ Sodium Chloride 1,011.2 mls @ 999 mls/hr IV ONETIME ONE Stop: 06/04/20 20:52 Last Admin: 06/04/20 20:27 Dose: 999 mls/hr Documented by: Magnesium Sulfate (Magnesium Sulfate In Water 2 Gm/50 Ml) 2 gm in 50 mls @ 50 mls/hr IV ONETIME [facility] Last Admin: 06/04/20 21:02 Dose: 50 mls/hr Documented by: Magnesium Sulfate (Magnesium Sulfate In Water 2 Gm/50 Ml) Confirm Administered Dose 2 gm in 50 mls @ as directed .ROUTE .STK-MED ONE Stop: 06/04/20 20:58 Last Admin: 06/04/20 21:04 Dose: Not Given Documented by: Thiamine HCl 500 mg/ Sodium (Chloride) 105 mls @ 210 mls/hr IV Q8H [facility] Thiamine HCl 500 mg/ Sodium (Chloride) 255 mls @ 250 mls/hr IV Q8H [facility] Last Admin: 06/05/20 01:34 Dose: 250 mls/hr Documented by: Magnesium Sulfate (Magnesium Sulfate In Water 2 Gm/50 Ml) 2 gm in 50 mls @ 50 mls/hr IV ONETIME [facility] Stop: 06/05/20 11:14 Last Admin: 06/05/20 10:37 Dose: 50 mls/hr Documented by: Lorazepam (Ativan) 1 mg IVPUSH ONETIME ONE Stop: 06/04/20 19:50 Last Admin: 06/04/20 19:52 Dose: 1 mg Documented by: Potassium Chloride (Klor-Con M20) 40 meq PO ONETIME ONE Stop: 06/05/20 08:02 Last Admin: 06/05/20 08:12 Dose: 40 meq Documented by: - Exam Quality Assessment: No: Supplemental Oxygen General: Alert, Oriented, Cooperative HEENT: EOMI, Mucous Membr. Moist/[place] Lungs: Clear to Auscultation, Normal Respiratory Effort Cardiovascular: Regular Rate, Regular Rhythm GI/Abdominal Exam: Soft, Non-Tender Neurological: Other (+tremors noted ) Psy/Mental Status: Alert, Depressed Sepsis Event Note - Evaluation Sepsis Screening Result: No Definite Risk - Focused Exam Vital Signs: Vital Signs Temp Pulse Resp BP Pulse Ox 06/05/20 12:20 98.4 F 121 H 16 160/92 H 99 06/05/20 07:36 97.2 F 85 16 171/96 H 100 06/05/20 04:00 99.1 F 97 18 153/91 H 99 - Problem List Review Problem List Initiated/Reviewed/Updated: Yes - My Orders Last 24 Hours: My Active Orders 06/05/20 08:00 Sodium Chloride 0.9% with KCl [Normal Saline with 40 mEq KCl] 1,000 ml IV ASDIRECTED - Plan Plan:: 65 yo male admitted for ETOH abuse and ataxia ETOH abuse: Continue CIWAA/Ativan Nosebleed: remove [place]; reassess for rebleed throughout day. hypokalemia: will receive total 90mEq today; recheck in PM potassium levels. Significant PMH of Wernicke encephalopathy: continue higher dosing of Thiamine 500 + continue daily folic tab Replete Magnesium w. 2 grams; recheck in AM PT to evaluate for gait disturbances prior to discharge.
[2020-06-05 15:38] LABS: POTASSIUM,K 3.3 mmol/L (3.5-5.1)
[2020-06-06] MEDS: Sodium Chloride 0.9% with KCl 1,000 ML IV SCH (01:27)
[2020-06-06] MEDS: Thiamine 500 MG in Sodium Chloride 0.9% 250 ML IV SCH ×3 (01:27→19:12)
[2020-06-06] MEDS: Folic Acid 1 MG Tab PO SCH (08:17)
[2020-06-06 08:37] LABS: BLOOD UREA NITROGEN,BUN 2 mg/dL (7.0-18.0); CARBON DIOXIDE,CO2 24.9 mmol/L (21.0-32.0); CHLORIDE,CL 102 mmol/L (98-107); GLUCOSE RANDOM 167 mg/dL (74-106); POTASSIUM,K 3.5 mmol/L (3.5-5.1); SODIUM,NA 139 mmol/L (136-148)
[2020-06-06] MEDS ORDERED: Magnesium Sulfate/Water 4 GM/100 ML BAG IV ONE (09:00)
[2020-06-06] MEDS ORDERED: Magnesium Sulfate/Water 4 GM in Premix Bag 1 BAG IV ONE (09:45)
--- NOTE | 2020-06-06 09:54 | PCM.PN ---
- General Info Date of Service: 06/06/20 Admission Dx/Problem (Free Text): Admission Diagnosis/Problem Admission Diagnosis/Problem Wernicke's disease Subjective Update: Reports he is feeling better today. Denies any chest pain shortness of breath. Reports he is no longer shaking but is noticeably having some tremors. Eating well and drinking well nursing reports he is weak and unsteady with ambulation. He is needs assistance of 1 and walker but is very stubborn and refusing to use walker. Functional Status: Reports: Pain Controlled, Tolerating Diet, Ambulating (With assist of 1 and walker), Urinating - Review of Systems General: Reports: Weakness HEENT: Reports: No Symptoms. Denies: Headaches, Sore Throat, Visual Changes Pulmonary: Reports: No Symptoms. Denies: Shortness of Breath Cardiovascular: Reports: No Symptoms. Denies: Chest Pain, Palpitations Gastrointestinal: Reports: No Symptoms. Denies: Abdominal Pain, Nausea, Vomiting Genitourinary: Reports: No Symptoms. Denies: Dysuria, Frequency Musculoskeletal: Reports: No Symptoms. Denies: Neck Pain Skin: Reports: No Symptoms Neurological: Reports: Tremors Psychiatric: Reports: No Symptoms - Patient Data Vitals - Most Recent: Last Vital Signs Temp 97.9 F 06/06/20 07:34 Pulse 95 06/06/20 07:34 Resp 20 06/06/20 07:34 BP 139/91 H 06/06/20 07:34 Pulse Ox 97 06/06/20 07:34 Weight - Most Recent: 64.2 kg I&O - Last 24 Hours: Intake & Output 06/05/20 06/06/20 06/06/20 22:59 06:59 14:59 Intake Total 2136 240 Output Total 1350 1100 Balance 786 -860 Lab Results Last 24 Hours: Laboratory Results - last 24 hr 06/05/20 06/05/20 06/05/20 Range/Units 05:45 09:17 15:06 WBC (4.0-11.0) K/uL RBC (4.50-5.90) M/uL Hgb (13.0-17.0) g/dL Hct (38.0-50.0) % MCV (80.0-98.0) fL MCH (27.0-32.0) pg MCHC (31.0-37.0) g/dL RDW Std Deviation (28.0-62.0) fl RDW Coeff of Stephane (11.0-15.0) % Plt Count (150-400) K/uL Neut % (Auto) (48.0-80.0) % Lymph % (Auto) (16.0-40.0) % [place] % (Auto) (0.0-15.0) % Eos % (Auto) (0.0-7.0) % Baso % (Auto) (0.0-1.5) % Neut # (Auto) (1.4-5.7) K/uL Lymph # (Auto) (0.6-2.4) K/uL [place] # (Auto) (0.0-0.8) K/uL Eos # (Auto) (0.0-0.7) K/uL Baso # (Auto) (0.0-0.1) K/uL Nucleated RBC % /100WBC Nucleated RBCs # K/uL Sodium (136-148) mmol/L Potassium 3.3 L (3.5-5.1) mmol/L Chloride (98-107) mmol/L Carbon Dioxide (21.0-32.0) mmol/L BUN (7.0-18.0) mg/dL Creatinine (0.8-1.3) mg/dL Est Cr Clr Drug Dosing mL/min Estimated GFR (MDRD) ml/min Glucose (74-106) mg/dL Calcium (8.5-10.1) mg/dL Phosphorus 1.6 L (2.6-4.7) mg/dL Magnesium 2.0 (1.8-2.4) mg/dL Urine Color YELLOW Urine Appearance CLEAR Urine pH 7.0 (5.0-8.0) Ur Specific [place] 1.020 (1.001-1.035) Urine Protein NEGATIVE (NEGATIVE) mg/dL Urine Glucose (UA) NEGATIVE (NEGATIVE) mg/dL Urine Ketones 40 H (NEGATIVE) mg/dL Urine Occult Blood TRACE-INTACT H (NEGATIVE) Urine Nitrite NEGATIVE (NEGATIVE) Urine Bilirubin NEGATIVE (NEGATIVE) Urine Urobilinogen 2.0 H (<2.0) EU/dL Ur Leukocyte Esterase NEGATIVE (NEGATIVE) Urine RBC 1-2 (0-2/HPF) Urine WBC 0-1 (0-5/HPF) Ur Epithelial Cells RARE (NONE-FEW) Urine Bacteria RARE (NEGATIVE) Urine Mucus FEW (NONE-MOD) 06/06/20 06/06/20 Range/Units 06:55 06:55 WBC 6.44 (4.0-11.0) K/uL RBC 4.39 L (4.50-5.90) M/uL Hgb 13.9 (13.0-17.0) g/dL Hct 40.0 (38.0-50.0) % MCV 91.1 (80.0-98.0) fL MCH 31.7 (27.0-32.0) pg MCHC 34.8 (31.0-37.0) g/dL RDW Std Deviation 51.5 (28.0-62.0) fl RDW Coeff of Stephane 15 (11.0-15.0) % Plt Count 57 L (150-400) K/uL Neut % (Auto) 55.6 (48.0-80.0) % Lymph % (Auto) 29.5 (16.0-40.0) % [place] % (Auto) 13.8 (0.0-15.0) % Eos % (Auto) 0.6 (0.0-7.0) % Baso % (Auto) 0.5 (0.0-1.5) % Neut # (Auto) 3.6 (1.4-5.7) K/uL Lymph # (Auto) 1.9 (0.6-2.4) K/uL [place] # (Auto) 0.9 H (0.0-0.8) K/uL Eos # (Auto) 0.0 (0.0-0.7) K/uL Baso # (Auto) 0.0 (0.0-0.1) K/uL Nucleated RBC % 0.0 /100WBC Nucleated RBCs # 0 K/uL Sodium 139 (136-148) mmol/L Potassium 3.5 (3.5-5.1) mmol/L Chloride 102 (98-107) mmol/L Carbon Dioxide 24.9 (21.0-32.0) mmol/L BUN 2 L (7.0-18.0) mg/dL Creatinine 0.6 L (0.8-1.3) mg/dL Est Cr Clr Drug Dosing 109.97 mL/min Estimated GFR (MDRD) > 60.0 ml/min Glucose 167 H (74-106) mg/dL Calcium 9.3 (8.5-10.1) mg/dL Phosphorus (2.6-4.7) mg/dL Magnesium 1.4 L (1.8-2.4) mg/dL Urine Color Urine Appearance Urine pH (5.0-8.0) Ur Specific [place] (1.001-1.035) Urine Protein (NEGATIVE) mg/dL Urine Glucose (UA) (NEGATIVE) mg/dL Urine Ketones (NEGATIVE) mg/dL Urine Occult Blood (NEGATIVE) Urine Nitrite (NEGATIVE) Urine Bilirubin (NEGATIVE) Urine Urobilinogen (<2.0) EU/dL Ur Leukocyte Esterase (NEGATIVE) Urine RBC (0-2/HPF) Urine WBC (0-5/HPF) Ur Epithelial Cells (NONE-FEW) Urine Bacteria (NEGATIVE) Urine Mucus (NONE-MOD) Med Orders - Current: Current Medications Folic Acid (Folic Acid) 1 mg PO DAILY [facility] Last Admin: 06/06/20 08:17 Dose: 1 mg Documented by: Thiamine HCl 500 mg/ Sodium (Chloride) 255 mls @ 250 mls/hr IV Q8H [facility] Last Admin: 06/06/20 08:51 Dose: 250 mls/hr Documented by: Magnesium Sulfate 4 gm/ Premix 100 mls @ 50 mls/hr IV ONETIME ONE Stop: 06/06/20 11:44 Lorazepam (Ativan) 0 mg IVPUSH Q4H PRN; Protocol PRN Reason: Withdrawal Symptoms Last Admin: 06/05/20 14:58 Dose: 1 mg Documented by: Discontinued Medications Sodium Chloride (Normal Saline) 1,000 mls @ 999 mls/hr IV STAT ONE Stop: 06/04/20 20:38 Last Admin: 06/04/20 19:50 Dose: 999 mls/hr Documented by: Multivitamins/Minerals 10 ml/Thiamine HCl 100 mg/ Folic Acid 1 mg/ Sodium Chloride 1,011.2 mls @ 999 mls/hr IV ONETIME ONE Stop: 06/04/20 20:52 Last Admin: 06/04/20 20:27 Dose: 999 mls/hr Documented by: Magnesium Sulfate (Magnesium Sulfate In Water 2 Gm/50 Ml) 2 gm in 50 mls @ 50 mls/hr IV ONETIME [facility] Last Admin: 06/04/20 21:02 Dose: 50 mls/hr Documented by: Magnesium Sulfate (Magnesium Sulfate In Water 2 Gm/50 Ml) Confirm Administered Dose 2 gm in 50 mls @ as directed .ROUTE .STK-MED ONE Stop: 06/04/20 20:58 Last Admin: 06/04/20 21:04 Dose: Not Given Documented by: Thiamine HCl 500 mg/ Sodium (Chloride) 105 mls @ 210 mls/hr IV Q8H [facility] Thiamine HCl 500 mg/ Sodium (Chloride) 255 mls @ 250 mls/hr IV Q8H [facility] Last Admin: 06/05/20 01:34 Dose: 250 mls/hr Documented by: Potassium Chloride/Sodium Chloride (Normal Saline With 40 Meq Kcl) 1,000 mls @ 150 mls/hr IV ASDIRECTED [facility] Last Admin: 06/06/20 01:27 Dose: 150 mls/hr Documented by: Magnesium Sulfate (Magnesium Sulfate In Water 2 Gm/50 Ml) 2 gm in 50 mls @ 50 mls/hr IV ONETIME [facility] Stop: 06/05/20 11:14 Last Admin: 06/05/20 10:37 Dose: 50 mls/hr Documented by: Magnesium Sulfate (Magnesium Sulfate In Water 2 Gm/50 Ml) 2 gm in 50 mls @ 50 mls/hr IV ONETIME [facility] Magnesium Sulfate (Magnesium Sulfate In Water 2 Gm/50 Ml) 2 gm in 50 mls @ 50 mls/hr IV ONETIME [facility] Lorazepam (Ativan) 1 mg IVPUSH ONETIME ONE Stop: 06/04/20 19:50 Last Admin: 06/04/20 19:52 Dose: 1 mg Documented by: Potassium Chloride (Klor-Con M20) 40 meq PO ONETIME ONE Stop: 06/05/20 08:02 Last Admin: 06/05/20 08:12 Dose: 40 meq Documented by: Potassium Chloride (Klor-Con M20) 40 meq PO ONETIME ONE Stop: 06/05/20 16:18 Last Admin: 06/05/20 16:57 Dose: 40 meq Documented by: - Exam Quality Assessment: DVT Prophylaxis. No: Supplemental Oxygen General: Alert, Oriented, Cooperative HEENT: Other (No further epistaxis) Neck: Supple Lungs: Clear to Auscultation, Normal Respiratory Effort Cardiovascular: Regular Rate, Regular Rhythm GI/Abdominal Exam: Normal Bowel Sounds, Soft Back Exam: Normal Inspection, Full Range of Motion Extremities: Normal Inspection, Normal Range of Motion, Non-Tender, No Pedal Edema Skin: Warm, Dry Neurological: No New Focal Deficit Psy/Mental Status: Alert, Normal Affect, Withdrawal Symptoms (Tremors noted) Sepsis Event Note - Evaluation Sepsis Screening Result: No Definite Risk - Focused Exam Vital Signs: Vital Signs Temp Pulse Resp BP Pulse Ox 06/06/20 07:34 97.9 F 95 20 139/91 H 97 06/06/20 04:00 98.1 F 86 16 145/84 H 95 06/06/20 00:00 99.5 F 63 16 153/65 H 99 - Problem List & Annotations (1) Alcohol abuse with physiological dependence SNOMED Code(s): 98963466, 71950738 Code(s): F10.20 - ALCOHOL DEPENDENCE, UNCOMPLICATED Status: Acute Current Visit: No (2) Ataxia SNOMED Code(s): 89504871 Code(s): R27.0 - ATAXIA, UNSPECIFIED Status: Acute Current Visit: No (3) Epistaxis SNOMED Code(s): 914383514 Code(s): R04.0 - EPISTAXIS Status: Acute Current Visit: No (4) Hypokalemia SNOMED Code(s): 96697019 Code(s): E87.6 - HYPOKALEMIA Status: Acute Current Visit: No (5) Hypomagnesemia SNOMED Code(s): 225297182 Code(s): E83.42 - HYPOMAGNESEMIA Status: Acute Current Visit: No (6) Hypophosphatemia SNOMED Code(s): 4573144 Code(s): E83.39 - OTHER DISORDERS OF PHOSPHORUS METABOLISM Status: Acute Current Visit: No - Problem List Review Problem List Initiated/Reviewed/Updated: Yes - Plan Plan:: 65 yo male admitted for ETOH abuse and ataxia 1. ETOH abuse/withdrawal and possible Wernicke's -Continue CIWAA protocol with Ativan as needed -Continue high-dose IV thiamine will continue 500 mg for total of 6 doses then 250 mg IV daily to start tomorrow at noon. -Continue folic acid -Continue PT for ataxia 2. Several electrolyte abnormalities including hypokalemia hypomagnesemia and hypophosphatemia -Replace all today and recheck in the morning 3. Epistaxis: -Removed rhinorocket yesterday no further bleeding noted 4. Transaminitis -Likely secondary to alcohol abuse -Continue to monitor daily VTE prophylaxis: SCDs only due to recent epistaxis CODE STATUS: Full code Dispo: We will make inpatient today as he is needing continued high-dose thiamine for ataxia.
[2020-06-06] MEDS: Potassium Chloride 20 MEQ Tab.ER PO SCH ×2 (11:02→17:43)
[2020-06-06] MEDS ORDERED: Acetaminophen 325 MG Tab PO PRN (11:06)
[2020-06-06] MEDS ORDERED: Ondansetron 4 MG/2 ML SDV IVPUSH PRN (11:06)
[2020-06-06] MEDS: Phosphorus #1 250 MG Tab PO SCH ×2 (12:41→17:43)
[2020-06-06] MEDS ORDERED: Magnesium Sulfate/Water 2 GM/50 ML BAG IV SCH (13:00)
[2020-06-07] MEDS: Phosphorus #1 250 MG Tab PO SCH ×3 (00:38→14:44)
[2020-06-07] MEDS: Thiamine 500 MG in Sodium Chloride 0.9% 250 ML IV SCH (00:39)
[2020-06-07 06:20] LABS: BLOOD UREA NITROGEN,BUN 3 mg/dL (7.0-18.0); CARBON DIOXIDE,CO2 23.4 mmol/L (21.0-32.0); CHLORIDE,CL 105 mmol/L (98-107); GLUCOSE RANDOM 145 mg/dL (74-106); POTASSIUM,K 4.2 mmol/L (3.5-5.1); SODIUM,NA 138 mmol/L (136-148)
[2020-06-07] MEDS ORDERED: Sodium Phosphate 15 MMOLE in Sodium Chloride 0.9% 250 ML IV SCH (08:15)
[2020-06-07] MEDS: Folic Acid 1 MG Tab PO SCH (08:30)
--- NOTE | 2020-06-07 11:40 | PCM.DCSUM1 ---
Discharge Summary - Hospital Course Brief History: 65 yo male with pmh of ETHOH abuse who presents to the ED with complaint of nose bleed. Patient also report generalized weakness and difficulty walking. HE has not been eating much at home. He denies drinking daily but when he does drink he drinks more than four drinks at a time. IN the ED he was noted to be tremulous and was given ativan. He has been treated for Wernicke's encephalopathy in the past. Diagnosis: Stroke: No - Discharge Data Discharge Date: 06/07/20 Discharge Disposition: Home, Self-Care 01 Condition: Good - Referral to Home Health Primary Care Physician: PCP None - Discharge Diagnosis/Problem(s) (1) Alcohol abuse with physiological dependence SNOMED Code(s): 87103345, 67513060 ICD Code: F10.20 - ALCOHOL DEPENDENCE, UNCOMPLICATED Status: Acute Current Visit: No (2) Ataxia SNOMED Code(s): 77153532 ICD Code: R27.0 - ATAXIA, UNSPECIFIED Status: Acute Current Visit: No (3) Epistaxis SNOMED Code(s): 531516143 ICD Code: R04.0 - EPISTAXIS Status: Acute Current Visit: No (4) Hypokalemia SNOMED Code(s): 97845928 ICD Code: E87.6 - HYPOKALEMIA Status: Acute Current Visit: No (5) Hypomagnesemia SNOMED Code(s): 498298400 ICD Code: E83.42 - HYPOMAGNESEMIA Status: Acute Current Visit: No (6) Hypophosphatemia SNOMED Code(s): 7536188 ICD Code: E83.39 - OTHER DISORDERS OF PHOSPHORUS METABOLISM Status: Acute Current Visit: No - Patient Summary/Data Consults: Consultations 06/05/20 00:20 PT Evaluation and Treatment [CONS] Routine Hospital Course: Admission diagnoses: Ataxia Epistaxis Hypokalemia Hypomagnesemia Discharge diagnoses; Ataxia concern for Wernicke's Epistaxis resolved Hypokalemia resolved Hypomagnesemia resolved Hypophosphatemia Other PMH: Alcohol abuse Ataxia Medical noncompliance Thrombocytopenia secondary to alcohol abuse Po was admitted secondary to upper taxis as well as ataxia. He also reported generalized weakness difficulty walking. He reported he had not been eating or drinking much and had been drinking significant amounts of alcohol at home. He was treated with Ativan intermittently for alcohol withdrawal per CIWAA scores. He was also treated with high-dose thiamine as he had previously been treated for Wernicke's encephalopathy and ataxia. Jazzmine Mortensen was placed in the ER due to epistaxis. The next day this was removed and he has had no further epistaxis. Thrombocytopenia has improved to 70,000 today. During his stay he had significant hypokalemia hypomagnesia and hypophosphatemia. These were replaced IV as well as p.o. and have remained stable today. He is not willing to stay for further thiamine treatment for ataxia or phosphate treatment for low phosphatemia. He was counseled on why it is important to have supplementation of both thiamine and phosphate but he continues to refuse to stay. He is stable on his feet but was evaluated by physical therapy and is needing a walker due to unsteady gait. He has refused to use this in the past. I will write a prescription for wheeled walker at home. He is to continue phosphate for another 4 days. He was encouraged to quit drinking though seems very unmotivated to do this at this time. He is to follow-up with PCP in 1 to 2 weeks. Return to the ER if concerns should arise. - Patient Instructions Diet: Regular Diet as Tolerated Activity: No Strenuous Activities Activity, Other: use walker with ambulation Driving: Do Not Drive Showering/Bathing: May Shower Notify Provider of: Fever, Increased Pain, Swelling and Redness, Drainage, Nausea and/or Vomiting Other/Special Instructions: provide AA meeting list and Human Services numbers - Discharge Plan *PRESCRIPTION DRUG MONITORING PROGRAM REVIEWED*: Not Applicable *COPY OF PRESCRIPTION DRUG MONITORING REPORT IN PATIENT PATRICK: Not Applicable Prescriptions/Med Rec: Folic Acid 1 mg PO DAILY #30 tablet Phosphorus #1 [Neutra-Phos] 250 mg PO QID #12 tablet Thiamine [Vitamin B-1] 100 mg PO BEDTIME #30 tab Home Medications: Home Meds Folic Acid 1 mg PO DAILY #30 tablet 06/07/20 [Rx] Phosphorus #1 [Neutra-Phos] 250 mg PO QID #12 tablet 06/07/20 [Rx] Thiamine [Vitamin B-1] 100 mg PO BEDTIME #30 tab 06/07/20 [Rx] Patient Handouts: Alcoholic Liver Disease, [id number], Alcohol Withdrawal Syndrome, Alcohol Intoxication, [id number] Referrals: Nori Salomon, AMILCAR [Nurse Practitioner] - 06/13/20 8:00 am - Discharge Summary/Plan Comment DC Time >30 min.: No - Patient Data Vitals - Most Recent: Last Vital Signs Temp 98.5 F 06/07/20 07:52 Pulse 93 06/07/20 07:52 Resp 16 06/07/20 07:52 BP 128/78 06/07/20 07:52 Pulse Ox 95 06/07/20 07:52 Weight - Most Recent: 64.2 kg I&O - Last 24 hours: Intake & Output 06/06/20 06/07/20 06/07/20 22:59 06:59 14:59 Intake Total 1146 1490 240 Output Total 900 250 Balance 246 1240 240 Lab Results - Last 24 hrs: Laboratory Results - last 24 hr 06/07/20 06/07/20 Range/Units 04:55 04:55 WBC 6.19 (4.0-11.0) K/uL RBC 3.83 L (4.50-5.90) M/uL Hgb 12.0 L (13.0-17.0) g/dL Hct 34.7 L (38.0-50.0) % MCV 90.6 (80.0-98.0) fL MCH 31.3 (27.0-32.0) pg MCHC 34.6 (31.0-37.0) g/dL RDW Std Deviation 52.0 (28.0-62.0) fl RDW Coeff of Stephane 16 H (11.0-15.0) % Plt Count 70 L (150-400) K/uL MPV 12.00 (7.40-12.00) fL Neut % (Auto) 49.8 (48.0-80.0) % Lymph % (Auto) 33.1 (16.0-40.0) % [place] % (Auto) 16.0 H (0.0-15.0) % Eos % (Auto) 0.8 (0.0-7.0) % Baso % (Auto) 0.3 (0.0-1.5) % Neut # (Auto) 3.1 (1.4-5.7) K/uL Lymph # (Auto) 2.1 (0.6-2.4) K/uL [place] # (Auto) 1.0 H (0.0-0.8) K/uL Eos # (Auto) 0.1 (0.0-0.7) K/uL Baso # (Auto) 0.0 (0.0-0.1) K/uL Nucleated RBC % 0.0 /100WBC Nucleated RBCs # 0 K/uL Sodium 138 (136-148) mmol/L Potassium 4.2 (3.5-5.1) mmol/L Chloride 105 (98-107) mmol/L Carbon Dioxide 23.4 (21.0-32.0) mmol/L BUN 3 L (7.0-18.0) mg/dL Creatinine 0.7 L (0.8-1.3) mg/dL Est Cr Clr Drug Dosing 94.26 mL/min Estimated GFR (MDRD) > 60.0 ml/min Glucose 145 H (74-106) mg/dL Calcium 9.0 (8.5-10.1) mg/dL Phosphorus 1.4 L (2.6-4.7) mg/dL Magnesium 1.8 (1.8-2.4) mg/dL Total Bilirubin 0.6 (0.2-1.0) mg/dL AST 68 H (15-37) IU/L ALT 26 (14-63) IU/L Alkaline Phosphatase 73 (46-116) U/L Total Protein 6.4 (6.4-8.2) g/dL Albumin 2.8 L (3.4-5.0) g/dL Globulin 3.6 (2.6-4.0) g/dL Albumin/Globulin Ratio 0.8 L (0.9-1.6) Med Orders - Current: Current Medications Acetaminophen (Tylenol) 650 mg PO Q4H PRN PRN Reason: Pain Folic Acid (Folic Acid) 1 mg PO DAILY [facility] Last Admin: 06/07/20 08:30 Dose: 1 mg Documented by: Thiamine HCl 250 mg/ Sodium (Chloride) 102.5 mls @ 205 mls/hr IV DAILY MARCEL Stop: 06/11/20 09:01 Sodium Phosphate 15 mmole/ (Sodium Chloride) 255 mls @ 63.75 mls/hr IV Q4H MARCEL Stop: 06/07/20 12:14 Last Admin: 06/07/20 09:22 Dose: 63.75 mls/hr Documented by: Lorazepam (Ativan) 0 mg IVPUSH Q4H PRN; Protocol PRN Reason: Withdrawal Symptoms Last Admin: 06/05/20 14:58 Dose: 1 mg Documented by: Ondansetron HCl (Zofran) 4 mg IVPUSH Q4H PRN PRN Reason: Nausea Sodium Phosphate (Neutra-Phos) 250 mg PO QID [facility] Last Admin: 06/07/20 05:45 Dose: 250 mg Documented by: Discontinued Medications Sodium Chloride (Normal Saline) 1,000 mls @ 999 mls/hr IV STAT ONE Stop: 06/04/20 20:38 Last Admin: 06/04/20 19:50 Dose: 999 mls/hr Documented by: Multivitamins/Minerals 10 ml/Thiamine HCl 100 mg/ Folic Acid 1 mg/ Sodium Chloride 1,011.2 mls @ 999 mls/hr IV ONETIME ONE Stop: 06/04/20 20:52 Last Admin: 06/04/20 20:27 Dose: 999 mls/hr Documented by: Magnesium Sulfate (Magnesium Sulfate In Water 2 Gm/50 Ml) 2 gm in 50 mls @ 50 mls/hr IV ONETIME [facility] Last Admin: 06/04/20 21:02 Dose: 50 mls/hr Documented by: Magnesium Sulfate (Magnesium Sulfate In Water 2 Gm/50 Ml) Confirm Administered Dose 2 gm in 50 mls @ as directed .ROUTE .STK-MED ONE Stop: 06/04/20 20:58 Last Admin: 06/04/20 21:04 Dose: Not Given Documented by: Thiamine HCl 500 mg/ Sodium (Chloride) 105 mls @ 210 mls/hr IV Q8H [facility] Thiamine HCl 500 mg/ Sodium (Chloride) 255 mls @ 250 mls/hr IV Q8H [facility] Last Admin: 06/05/20 01:34 Dose: 250 mls/hr Documented by: Potassium Chloride/Sodium Chloride (Normal Saline With 40 Meq Kcl) 1,000 mls @ 150 mls/hr IV ASDIRECTED [facility] Last Admin: 06/06/20 01:27 Dose: 150 mls/hr Documented by: Thiamine HCl 500 mg/ Sodium (Chloride) 255 mls @ 250 mls/hr IV Q8H [facility] Stop: 06/07/20 02:32 Last Admin: 06/07/20 00:39 Dose: 250 mls/hr Documented by: Magnesium Sulfate (Magnesium Sulfate In Water 2 Gm/50 Ml) 2 gm in 50 mls @ 50 mls/hr IV ONETIME MARCEL Stop: 06/05/20 11:14 Last Admin: 06/05/20 10:37 Dose: 50 mls/hr Documented by: Magnesium Sulfate (Magnesium Sulfate In Water 2 Gm/50 Ml) 2 gm in 50 mls @ 50 mls/hr IV ONETIME MARCEL Magnesium Sulfate (Magnesium Sulfate In Water 2 Gm/50 Ml) 2 gm in 50 mls @ 50 mls/hr IV ONETIME MARCEL Magnesium Sulfate 4 gm/ Premix 100 mls @ 50 mls/hr IV ONETIME ONE Stop: 06/06/20 11:44 Last Admin: 06/06/20 10:03 Dose: 50 mls/hr Documented by: Lorazepam (Ativan) 1 mg IVPUSH ONETIME ONE Stop: 06/04/20 19:50 Last Admin: 06/04/20 19:52 Dose: 1 mg Documented by: Potassium Chloride (Klor-Con M20) 40 meq PO ONETIME ONE Stop: 06/05/20 08:02 Last Admin: 06/05/20 08:12 Dose: 40 meq Documented by: Potassium Chloride (Klor-Con M20) 40 meq PO ONETIME ONE Stop: 06/05/20 16:18 Last Admin: 06/05/20 16:57 Dose: 40 meq Documented by: Potassium Chloride (Klor-Con M20) 60 meq PO BIDMEALS MARCEL Stop: 06/06/20 17:01 Last Admin: 06/06/20 17:43 Dose: 60 meq Documented by:
[2020-06-07] MEDS ORDERED: Thiamine 250 MG in Sodium Chloride 0.9% 100 ML IV SCH (12:00)
[2020-06-07] MEDS ORDERED: Vancomycin 125 MG Cap PO SCH (14:27)
== END 2020-06-07 15:20 | disposition home or self-care (01) | DRG 897 ==
LOC: MW.ED 19:33 → MW.MS 20:53 → OBSVTOIN 06-06 10:13
PROVIDERS: ADMIT Internal Medicine; ATTEND Internal Medicine
DX: F10.239 Alcohol dependence with withdrawal, unspecified (principal); F10.229 Alcohol dependence with intoxication, unspecified; Y90.9 Presence of alcohol in blood, level not specified; E51.2 Wernicke's encephalopathy; R53.1 Weakness; R27.0 Ataxia, unspecified; M62.82 Rhabdomyolysis; R04.0 Epistaxis; I10 Essential (primary) hypertension; E87.6 Hypokalemia; E83.42 Hypomagnesemia; E83.39 Other disorders of phosphorus metabolism; D69.6 Thrombocytopenia, unspecified; R74.01 Elevation of levels of liver transaminase levels; Z91.19 Patient's noncompliance with other medical treatment and regimen; Z79.899 Other long term (current) drug therapy; E78.00 Pure hypercholesterolemia, unspecified; R74.8 Abnormal levels of other serum enzymes; Z20.822 Contact with and (suspected) exposure to COVID-19
CPT/HCPCS: 30903; 36415 ×3; 71045; 80048; 80053 ×2; 80179; 81001; 82550; 82962; 83690; 83735 ×4; 84100; 84132; 84484; 85025 ×3; 85610; 93005; 96365; 96367; 96375; 99285; A9270 ×4; J2060 ×2; J3411 ×6; J3475 ×3; J3480 ×3; J7030 ×2; J7050 ×5; U0002; 30901; 87045; 87046; 87324; 87449; 87493; 87899; 93010; 96366; 96368; 96376; 97110-GP; 97161-GP; 97530-GP; G0378

== ENCOUNTER 2020-06-26 20:54 | Inpatient (IN) | payer MEDICARE, MEDICAID ==
[2020-06-26] MEDS ORDERED: MVI, Adult with Vitamin K 10 ML, Thiamine 100 MG, Folic Acid 1 MG in Sodium Chloride 0.... IV ONE ×4 (21:00)
[2020-06-26] MEDS ORDERED: 50% Dextrose in Water 50 ML Syringe IVPUSH ONE (21:00)
[2020-06-26] MEDS ORDERED: 50% Dextrose in Water 50 ML Syringe ONE (21:04)
--- NOTE | 2020-06-26 21:04 | EDM.PDOCBH ---
<Luis Carlos Stern C - Last Filed: 06/27/20 06:42> ED HPI GENERAL MEDICAL PROBLEM - General Chief Complaint: Drug or Alcohol Abuse Stated Complaint: ETOH Time Seen by Provider: 06/26/20 20:59 - History of Present Illness INITIAL COMMENTS - FREE TEXT/NARRATIVE: Patient signed out to me pending re-evaluation by Margie Laird [employer] All labs and imaging reviewed Given the hypoglycemia, debility, electrolyte abnormalities, and alcoholic hepatitis I contacted Dr. Keita for admission. She accepted the admission. Patient was admitted in stable condition. Final Impression: 1. Acute hypoglycemic episode secondary to hypoglycemia 2. Acute alcohol intoxication 3. Acute alcoholic hepatitis 4. Acute on chronic debility - Related Data Allergies Allergy/AdvReac Type Severity Reaction Status Date / Time No Known Allergies Allergy Verified 06/27/20 01:31 Home Meds: Home Meds . [No Known Home Meds] 06/26/20 [History] Departure - Departure Time of Disposition: 00:06 Disposition: Admitted As Inpatient 65 Condition: Fair Clinical Impression: Hypomagnesemia, Self-care deficit Alcohol intoxication Qualifiers: Complication of substance-induced condition: uncomplicated Qualified Code(s): F10.920 - Alcohol use, unspecified with intoxication, uncomplicated - Discharge Information <Thony Laird - Last Filed: 06/28/20 11:05> ED HPI GENERAL MEDICAL PROBLEM - General Source of Information: Reports: Patient History Limitations: Reports: No Limitations - History of Present Illness INITIAL COMMENTS - FREE TEXT/NARRATIVE: HISTORY AND PHYSICAL: History of present illness: Patient is a 65-year-old male who presents to the emergency room by ambulance with complaints of alcohol abuse, weakness and self-care deficit. Patient states he wakes up in the morning and starts drinking hard alcohol and continues this until he falls asleep at night, states he has been a daily drinker for years. Over the past 2 days he states he has been so "weak" that he has not been able to get up out of the chair to eat or drink anything other than alcohol. Last drink was this afternoon. A roommate was concerned that he wasn't eating and able to get out of his chair and called the ambulance today for medical evaluation. Patient was admitted last month for alcohol abuse, weakness and Wernicke's encephalopathy. Besides chronic alcohol abuse he also has a history of hypertension and GI bleed. Patient states other than the weakness he feels "fine". Upon arrival the patient's blood sugar is 44, he has alert and talking. We did have him drink some orange juice at the bedside and will give him an amp of D50 while labs are pending. Patient denies any fever, chills, headache, change in vision, syncope or near syncope. Denies any chest pain, back pain, shortness of breath or cough. Denies any abdominal pain, nausea, vomiting, diarrhea, constipation or dysuria. Has not noted any blood in urine or stool. Review of systems: As per history of present illness and below otherwise all systems reviewed and negative. Past medical history: As per history of present illness and as reviewed below otherwise noncontributory. Surgical history: As per history of present illness and as reviewed below otherwise noncontributory. Social history: See social history for further information Family history: As per history of present illness and as reviewed below otherwise noncontributory. Physical exam: General: Well developed and well nourished 65 year old black male. Alert and orientated x 3. Nontoxic in appearance and in no acute distress. Vital signs are stable and have been reviewed by me. Nursing notes were reviewed. HEENT: Atraumatic, normocephalic, pupils equal and reactive bilaterally, negative for conjunctival pallor or scleral icterus, mucous membranes dry/tacky, TMs normal bilaterally, throat clear, neck supple, nontender, trachea midline. No drooling or trismus noted. No meningeal signs. No hot potato voice noted. Lungs: Clear to auscultation bilaterally. No wheezes, rales, or rhonchi. Chest nontender. Normal work of breathing, no accessory muscles used. Heart: S1S2, regular rate and rhythm without overt murmur, gallops, or rubs. No JVD. No peripheral edema Abdomen: Soft, nondistended, nontender. Normoactive bowel sounds. Negative for masses or costovertebral tenderness. Skin: Intact, warm, and excessively dry. No lesions or rashes noted. Hematologic: No petechiae or purpra. Mucosa appropriate color and normal nail bed color and refill. Extremities: Atraumatic, moves all extremities per self without difficulty or deficits. Neurovascular unremarkable. Neuro: Awake, alert, oriented. Cranial nerves II through XII unremarkable. Cerebellum unremarkable. Motor and sensory unremarkable throughout. Exam nonfocal. Psychiatric: Mood and affect are appropriate. Normal thought process. Answering questions appropriately. Notes: *This patient was seen and evaluated during the 2019 SARS-CoV-2 novel coronavirus pandemic period. Community viral transmission is ongoing at time of this encounter and the emergency department is operating under pandemic response procedures. Blood glucose was 44, he was able to drink some orange juice without any problems. IV established, 1 amp D50 given - will follow blood glucose closely. Patient is alert and answering questions appropriately at this time. Mild tremor noted at this time. He is agreeable to basic lab work. 2200: Dr Stern has taken over on this patient and will provide care accordingly. Patient is stable. VSS. Labs pending. Diagnostics: CBC, CMP, EKG, Magnesium, UA, ETOH, bedside glucose Therapeutics: 1 amp of D50, Banana bag with thiamine, 1 mg Ativan Impression: Alcohol abuse Self care deficit Hypoglycemia Definitive disposition and diagnosis as appropriate pending reevaluation and review of above. Past Medical History - Past Health History Medical/Surgical History: Denies Medical/Surgical History HEENT History: Reports: None Cardiovascular History: Reports: High Cholesterol, Hypertension Respiratory History: Reports: None Gastrointestinal History: Reports: GI Bleed Genitourinary History: Reports: None Musculoskeletal History: Reports: None Neurological History: Reports: None Psychiatric History: Reports: None Endocrine/Metabolic History: Reports: None Hematologic History: Reports: None Immunologic History: Reports: None Oncologic (Cancer) History: Reports: None Dermatologic History: Reports: None - Infectious Disease History Infectious Disease History: Reports: None - Past Surgical History Head Surgeries/Procedures: Reports: None HEENT Surgical History: Reports: None Cardiovascular Surgical History: Reports: None Respiratory Surgical History: Reports: None GI Surgical History: Reports: EGD Male Surgical History: Reports: None Endocrine Surgical History: Reports: None Neurological Surgical History: Reports: None Musculoskeletal Surgical History: Reports: None Oncologic Surgical History: Reports: None Dermatological Surgical History: Reports: None Social & Family History - Family History Family Medical History: No Pertinent Family History - Caffeine Use Caffeine Use: Reports: None Caffeine Use Comment: once in a while use of coffee. ED ROS GENERAL - Review of Systems Review Of Systems: Comprehensive ROS is negative, except as noted in HPI. ED EXAM, BEHAVIORAL HEALTH - Physical Exam Exam: See Below (See dictation) COURSE, BEHAVIORAL HEALTH COMP - Course Vital Signs: Last Vital Signs Temp 99.7 F 06/28/20 07:37 Pulse 93 06/28/20 07:37 Resp 18 06/28/20 07:37 BP 152/90 H 06/28/20 07:37 Pulse Ox 98 06/28/20 07:37 Orders, Labs, Meds: Medication Orders Albuterol/Ipratropium (Combivent Respimat) 0 gm INH Q4H PRN PRN Reason: Dyspnea Diazepam (Valium.) 5 mg PO BID [facility] Last Admin: 06/28/20 08:11 Dose: 5 mg Documented by: Admin: 06/27/20 20:57 Dose: 5 mg Documented by: Admin: 06/27/20 10:17 Dose: 5 mg Documented by: SAM Folic Acid (Folic Acid) 1 mg SUBCUT DAILY [facility] Last Admin: 06/28/20 08:11 Dose: 1 mg Documented by: SAM Pantoprazole Sodium 40 mg/ (Sodium Chloride) 10 mls @ 300 mls/hr IV Q12H [facility] Last Admin: 06/28/20 05:55 Dose: 300 mls/hr Documented by: Infusion: 06/27/20 17:58 Dose: 300 mls/hr Documented by: Admin: 06/27/20 17:56 Dose: 300 mls/hr Documented by: SAM Potassium Chloride/Sodium Chloride (Normal Saline With 40 Meq Kcl) 1,000 mls @ 125 mls/hr IV ONETIME ONE Stop: 06/28/20 15:59 Last Admin: 06/28/20 08:19 Dose: 125 mls/hr Documented by: SAM Thiamine HCl 500 mg/ Sodium (Chloride) 255 mls @ 510 mls/hr IV Q8H [facility] Last Admin: 06/28/20 10:00 Dose: 510 mls/hr Documented by: SAM Lorazepam (Ativan) 0 mg IVPUSH Q4H PRN; Protocol PRN Reason: CIWAA Last Admin: 06/27/20 17:03 Dose: 1 mg Documented by: Admin: 06/27/20 12:29 Dose: 1 mg Documented by: SAM Ondansetron HCl (Zofran) 4 mg IVPUSH Q4H PRN PRN Reason: Nausea/Vomiting Last Admin: 06/27/20 12:29 Dose: 4 mg Documented by: SAM Potassium Chloride (Klor-Con M20) 40 meq PO BIDMEALS [facility] Last Admin: 06/28/20 08:10 Dose: 40 meq Documented by: SAM Sodium Phosphate (Neutra-Phos) 250 mg PO QID [facility] Last Admin: 06/28/20 08:10 Dose: 250 mg Documented by: SAM Laboratory Tests 06/26/20 06/26/20 06/26/20 Range/Units 21:06 21:06 21:10 WBC 6.21 (4.0-11.0) K/uL RBC 4.24 L (4.50-5.90) M/uL Hgb 13.8 (13.0-17.0) g/dL Hct 39.7 (38.0-50.0) % MCV 93.6 (80.0-98.0) fL MCH 32.5 H (27.0-32.0) pg MCHC 34.8 (31.0-37.0) g/dL RDW Std Deviation 59.2 (28.0-62.0) fl RDW Coeff of Stephane 17 H (11.0-15.0) % Plt Count 57 L (150-400) K/uL MPV 11.30 (7.40-12.00) fL Neut % (Auto) 55.0 (48.0-80.0) % Lymph % (Auto) 35.1 (16.0-40.0) % Grainger % (Auto) 8.9 (0.0-15.0) % Eos % (Auto) 0.5 (0.0-7.0) % Baso % (Auto) 0.5 (0.0-1.5) % Neut # (Auto) 3.4 (1.4-5.7) K/uL Lymph # (Auto) 2.2 (0.6-2.4) K/uL Grainger # (Auto) 0.6 (0.0-0.8) K/uL Eos # (Auto) 0.0 (0.0-0.7) K/uL Baso # (Auto) 0.0 (0.0-0.1) K/uL Nucleated RBC % 0.0 /100WBC Nucleated RBCs # 0 K/uL Sodium 146 (136-148) mmol/L Potassium 3.9 (3.5-5.1) mmol/L Chloride 101 (98-107) mmol/L Carbon Dioxide 26.4 (21.0-32.0) mmol/L BUN 4 L (7.0-18.0) mg/dL Creatinine 0.8 (0.8-1.3) mg/dL Est Cr Clr Drug Dosing TNP Estimated GFR (MDRD) > 60.0 ml/min Glucose 60 L (74-106) mg/dL POC Glucose (60-110) mg/dL Calcium 8.4 L (8.5-10.1) mg/dL Phosphorus (2.6-4.7) mg/dL Magnesium 1.5 L (1.8-2.4) mg/dL Total Bilirubin 1.6 H (0.2-1.0) mg/dL AST 181 H (15-37) IU/L ALT 40 (14-63) IU/L Alkaline Phosphatase 115 (46-116) U/L Creatine Kinase 145 (26-308) U/L Total Protein 8.1 (6.4-8.2) g/dL Albumin 3.2 L (3.4-5.0) g/dL Globulin 4.9 H (2.6-4.0) g/dL Albumin/Globulin Ratio 0.7 L (0.9-1.6) Ethyl Alcohol 373 mg/dL SARS-CoV-2 RNA (EMANI) POSITIVE H (NEGATIVE) 06/26/20 06/27/20 06/27/20 Range/Units 21:29 00:10 06:04 WBC 4.31 (4.0-11.0) K/uL RBC 3.76 L (4.50-5.90) M/uL Hgb 12.3 L (13.0-17.0) g/dL Hct 34.8 L (38.0-50.0) % MCV 92.6 (80.0-98.0) fL MCH 32.7 H (27.0-32.0) pg MCHC 35.3 (31.0-37.0) g/dL RDW Std Deviation 57.5 (28.0-62.0) fl RDW Coeff of Stephane 17 H (11.0-15.0) % Plt Count 47 L (150-400) K/uL MPV 10.90 (7.40-12.00) fL Neut % (Auto) 57.5 (48.0-80.0) % Lymph % (Auto) 29.5 (16.0-40.0) % Grainger % (Auto) 11.8 (0.0-15.0) % Eos % (Auto) 0.5 (0.0-7.0) % Baso % (Auto) 0.7 (0.0-1.5) % Neut # (Auto) 2.5 (1.4-5.7) K/uL Lymph # (Auto) 1.3 (0.6-2.4) K/uL Grainger # (Auto) 0.5 (0.0-0.8) K/uL Eos # (Auto) 0.0 (0.0-0.7) K/uL Baso # (Auto) 0.0 (0.0-0.1) K/uL Nucleated RBC % 0.0 /100WBC Nucleated RBCs # 0 K/uL Sodium (136-148) mmol/L Potassium (3.5-5.1) mmol/L Chloride (98-107) mmol/L Carbon Dioxide (21.0-32.0) mmol/L BUN (7.0-18.0) mg/dL Creatinine (0.8-1.3) mg/dL Est Cr Clr Drug Dosing Estimated GFR (MDRD) ml/min Glucose (74-106) mg/dL POC Glucose 166 H 70 (60-110) mg/dL Calcium (8.5-10.1) mg/dL Phosphorus (2.6-4.7) mg/dL Magnesium (1.8-2.4) mg/dL Total Bilirubin (0.2-1.0) mg/dL AST (15-37) IU/L ALT (14-63) IU/L Alkaline Phosphatase (46-116) U/L Creatine Kinase (26-308) U/L Total Protein (6.4-8.2) g/dL Albumin (3.4-5.0) g/dL Globulin (2.6-4.0) g/dL Albumin/Globulin Ratio (0.9-1.6) Ethyl Alcohol mg/dL SARS-CoV-2 RNA (EMANI) (NEGATIVE) 06/27/20 06/27/20 Range/Units 06:04 06:04 WBC (4.0-11.0) K/uL RBC (4.50-5.90) M/uL Hgb (13.0-17.0) g/dL Hct (38.0-50.0) % MCV (80.0-98.0) fL MCH (27.0-32.0) pg MCHC (31.0-37.0) g/dL RDW Std Deviation (28.0-62.0) fl RDW Coeff of Stephane (11.0-15.0) % Plt Count (150-400) K/uL MPV (7.40-12.00) fL Neut % (Auto) (48.0-80.0) % Lymph % (Auto) (16.0-40.0) % Grainger % (Auto) (0.0-15.0) % Eos % (Auto) (0.0-7.0) % Baso % (Auto) (0.0-1.5) % Neut # (Auto) (1.4-5.7) K/uL Lymph # (Auto) (0.6-2.4) K/uL Grainger # (Auto) (0.0-0.8) K/uL Eos # (Auto) (0.0-0.7) K/uL Baso # (Auto) (0.0-0.1) K/uL Nucleated RBC % /100WBC Nucleated RBCs # K/uL Sodium 146 (136-148) mmol/L Potassium 3.3 L (3.5-5.1) mmol/L Chloride 105 (98-107) mmol/L Carbon Dioxide 24.4 (21.0-32.0) mmol/L BUN 3 L (7.0-18.0) mg/dL Creatinine 0.6 L (0.8-1.3) mg/dL Est Cr Clr Drug Dosing 108.55 Estimated GFR (MDRD) > 60.0 ml/min Glucose 105 (74-106) mg/dL POC Glucose (60-110) mg/dL Calcium 7.6 L (8.5-10.1) mg/dL Phosphorus 3.0 (2.6-4.7) mg/dL Magnesium 1.7 L (1.8-2.4) mg/dL Total Bilirubin (0.2-1.0) mg/dL AST (15-37) IU/L ALT (14-63) IU/L Alkaline Phosphatase (46-116) U/L Creatine Kinase (26-308) U/L Total Protein (6.4-8.2) g/dL Albumin (3.4-5.0) g/dL Globulin (2.6-4.0) g/dL Albumin/Globulin Ratio (0.9-1.6) Ethyl Alcohol mg/dL SARS-CoV-2 RNA (EMANI) (NEGATIVE) Medications Generic Name Dose Route Start Last Admin Trade Name Freq PRN Reason Stop Dose Admin Albuterol/Ipratropium 0 gm 06/27/20 01:50 Combivent Respimat INH Q4H PRN Dyspnea Diazepam 5 mg 06/27/20 10:15 06/28/20 08:11 Valium. PO 5 mg BID MARCEL Administration Folic Acid 1 mg 06/28/20 09:00 06/28/20 08:11 Folic Acid SUBCUT 1 mg DAILY MARCEL Administration Pantoprazole Sodium 40 mg/ 10 mls @ 300 mls/hr 06/27/20 18:00 06/28/20 05:55 Sodium Chloride IV 300 mls/hr Q12H MARCEL Administration Potassium Chloride/Sodium Chloride 1,000 mls @ 125 mls/hr 06/28/20 08:00 06/28/20 08:19 Normal Saline With 40 Meq Kcl IV 06/28/20 15:59 125 mls/hr ONETIME ONE Administration Thiamine HCl 500 mg/ Sodium 255 mls @ 510 mls/hr 06/28/20 09:30 06/28/20 10:00 Chloride IV 510 mls/hr Q8H MARCEL Administration Lorazepam 0 mg 06/27/20 01:52 06/27/20 17:03 Ativan IVPUSH 1 mg Q4H PRN Administration CIWAA Protocol Ondansetron HCl 4 mg 06/27/20 01:47 06/27/20 12:29 Zofran IVPUSH 4 mg Q4H PRN Administration Nausea/Vomiting Potassium Chloride 40 meq 06/28/20 08:00 06/28/20 08:10 Klor-Con M20 PO 40 meq BIDMEALS MARCEL Administration Sodium Phosphate 250 mg 06/28/20 07:44 06/28/20 08:10 Neutra-Phos PO 250 mg QID MARCEL Administration Discontinued Medications Generic Name Dose Route Start Last Admin Trade Name Nandini PRN Reason Stop Dose Admin Bacitracin 2 dose 06/26/20 22:56 06/26/20 23:01 Bacitracin Oint 1 Gm TOP 06/26/20 22:57 Not Given ONETIME ONE Dextrose/Water 50 ml 06/26/20 21:00 06/26/20 21:04 Dextrose 50% In Water IVPUSH 06/26/20 21:01 50 ml ONETIME ONE Administration Dextrose/Water Confirm 06/26/20 21:04 06/26/20 21:09 Dextrose 50% In Water Administered 06/26/20 21:05 Not Given Dose 50 ml .ROUTE .STK-MED ONE Folic Acid 1 mg 06/27/20 02:00 06/27/20 03:01 Folic Acid SUBCUT 1 mg DAILY MARCEL Administration Multivitamins/Minerals 10 ml/ 1,011.2 mls @ 999 mls/hr 06/26/20 21:00 06/26/20 21:25 Thiamine HCl 100 mg/ Folic IV 06/26/20 22:00 999 mls/hr Acid 1 mg/ Sodium Chloride ONETIME ONE Administration Magnesium Sulfate 2 gm in 50 mls @ 50 mls/hr 06/26/20 23:00 06/26/20 23:16 Magnesium Sulfate In Water 2 Gm/50 Ml IV 06/26/20 23:59 50 mls/hr ONETIME ONE Administration Dextrose/Sodium Chloride 1,000 mls @ 125 mls/hr 06/27/20 00:15 06/27/20 00:18 Dextrose 5%-Normal Saline IV 125 mls/hr ASDIRECTED MARCEL Administration Pantoprazole Sodium 40 mg/ 10 mls @ 300 mls/hr 06/28/20 07:30 Sodium Chloride IV Q24H MARCEL Lactated Ringer's 1,000 mls @ 100 mls/hr 06/27/20 02:00 06/28/20 04:01 Ringers, Lactated IV 100 mls/hr ASDIRECTED MARCEL Administration Thiamine HCl 100 mg/ Sodium 101 mls @ 202 mls/hr 06/27/20 02:00 06/27/20 03:03 Chloride IV 202 mls/hr DAILY MARCEL Administration Pantoprazole Sodium 40 mg/ 10 mls @ 300 mls/hr 06/27/20 02:30 06/27/20 03:00 Sodium Chloride IV 06/27/20 02:31 300 mls/hr ONETIME ONE Administration Magnesium Sulfate 2 gm in 50 mls @ 50 mls/hr 06/27/20 10:08 06/27/20 11:04 Magnesium Sulfate In Water 2 Gm/50 Ml IV 06/27/20 11:07 50 mls/hr ONETIME ONE Administration Magnesium Sulfate 4 gm in 100 mls @ 50 mls/hr 06/28/20 08:00 06/28/20 08:13 Magnesium Sulfate In Water 4 Gm/100 Ml IV 06/28/20 09:59 50 mls/hr ONETIME ONE Administration Ibuprofen 200 mg 06/27/20 01:50 Motrin PO Q6H PRN Pain Lorazepam 1 mg 06/26/20 21:14 Ativan IVPUSH ONETIME PRN Agitation Magnesium Sulfate 2 gm 06/26/20 22:50 Magnesium Sulfate 50% IV 06/26/20 22:51 ONETIME STA Potassium Chloride 40 meq 06/27/20 10:08 06/27/20 11:04 Klor-Con M20 PO 06/27/20 10:09 40 meq ONETIME ONE Administration
[2020-06-26] MEDS ORDERED: LORazepam 2 MG/ML SDV IVPUSH PRN (21:14)
[2020-06-26 21:35] LABS: BLOOD UREA NITROGEN,BUN 4 mg/dL (7.0-18.0); CARBON DIOXIDE,CO2 26.4 mmol/L (21.0-32.0); CHLORIDE,CL 101 mmol/L (98-107); GLUCOSE RANDOM 60 mg/dL (74-106); POTASSIUM,K 3.9 mmol/L (3.5-5.1); SODIUM,NA 146 mmol/L (136-148)
--- NOTE | 2020-06-26 21:35 | CR ---
Indication: Weakness Technique: Chest 1 view Comparison: June 04, 2020 Findings/Impression: Cardiovascular and mediastinum: Heart size and vasculature are normal in caliber and appearance. Mediastinum is within normal limits. Lungs and pleural space: Lungs are clear. No sign of infiltrate or mass. No sign of pleural effusion. No pneumothorax. Bones and soft tissues: No significant findings. Dictated by Mami Saldana MD @ Jun 26 2020 9:33PM Signed by Dr. Mami Saldana @ Jun 26 2020 9:33PM
[2020-06-26] MEDS ORDERED: Magnesium Sulfate (4.06 MEQ/ML) 5 GM/10 ML SDV IV STA (22:50)
[2020-06-26] MEDS ORDERED: Bacitracin Oint 1 GM U/D Packet TOP ONE (22:56)
[2020-06-26] MEDS ORDERED: Magnesium Sulfate/Water 2 GM/50 ML BAG IV ONE (23:00)
[2020-06-27] MEDS ORDERED: Dextrose 5%-0.9% NaCl 1,000 ML IV SCH (00:15)
[2020-06-27] MEDS ORDERED: Ondansetron 4 MG/2 ML SDV IVPUSH PRN (01:47)
[2020-06-27] MEDS ORDERED: Albuterol/Ipratropium 4 GM Inhalation Spray INH PRN (01:50)
[2020-06-27] MEDS ORDERED: Ibuprofen 200 MG Tab PO PRN (01:50)
[2020-06-27] MEDS ORDERED: Thiamine 100 MG in Sodium Chloride 0.9% 100 ML IV SCH (02:00)
[2020-06-27] MEDS ORDERED: Folic Acid 50 MG/10 ML MDV SUBCUT SCH ×2 (02:00→09:00)
[2020-06-27] MEDS ORDERED: Pantoprazole 40 MG in Sodium Chloride 0.9% 10 ML IV ONE (02:30)
[2020-06-27 06:27] LABS: BLOOD UREA NITROGEN,BUN 3 mg/dL (7.0-18.0); CARBON DIOXIDE,CO2 24.4 mmol/L (21.0-32.0); CHLORIDE,CL 105 mmol/L (98-107); GLUCOSE RANDOM 105 mg/dL (74-106); POTASSIUM,K 3.3 mmol/L (3.5-5.1); SODIUM,NA 146 mmol/L (136-148)
[2020-06-27] MEDS: Lactated Ringers 1,000 ML IV SCH ×2 (06:41→18:03)
--- NOTE | 2020-06-27 06:49 | PCM.EKG ---
#1 Interpretation EKG Date: 06/26/20 Time: 21:42 Rhythm: NSR Rate (Beats/Min): 83 Watson: LAD-Left Watson Deviation P-Wave: Present QRS: Normal ST-T: Normal (T wave inversions in leads I, aVL, V2-V6) QT: Normal Comparison: Other: (unable to view priors) EKG Interpretation Comments: Sinus rhythm with anteriolateral T wave inversion
--- NOTE | 2020-06-27 08:16 | PCM.HP.2 ---
H&P History of Present Illness - General Date of Service: 06/27/20 Admit Problem/Dx: Admission Diagnosis/Problem Admission Diagnosis/Problem Hypoglycemia Source of Information: Patient History Limitations: Reports: No Limitations - History of Present Illness Initial Comments - Free Text/Narative: This 65-year-old male with past medical history of Wernicke's encephalopathy, chronic alcohol abuse and GI bleed presented to the ER last night with concerns of weakness and inability to ambulate. He reports that the last 3 days he has been feeling more weak and has not been able to ambulate as well within his home. He reports a friend came to help him they were able unable to get him up from the chair. He reports he has been drinking hard alcohol from the time he wakes up until he passes out in the evening and not eating very much food. He was previously admitted the end of May for similar symptoms along with C. difficile diarrhea. He was discharged home with vancomycin and he reports he did not finish his treatment but reports diarrhea has stopped. He does report having a black stool a couple days ago. He denies any chest pain shortness of breath fevers chills. He denies any myalgias. He reports he has generalized weakness and inability to ambulate safely by himself. He reports he did have a fall at home a few days ago but did not hit his head. In the ER white count 6.21 hemoglobin 13.8 platelets 57,000 which is near baseline. BMP normal with the exception of hypoglycemia noted at 59 he was initially tested and noted to be 43 he was given orange juice and food in the ER along with D50 1 IV access was established. Magnesium 1.5 bilirubin 1.6 AST 181 ALT 40 alk phos 115. Alcohol level 373 and he was Covid positive. Previous admission he was noted to be Covid negative. Chest x-ray negative for any acute cardiopulmonary process. EKG sinus rhythm with no ST changes. He was treated with magnesium 1 L MVI with folic acid and thiamine and Protonix in the ER. He was admitted observation for generalized weakness and alcohol abuse. - Related Data Allergies/Adverse Reactions: Allergies Allergy/AdvReac Type Severity Reaction Status Date / Time No Known Allergies Allergy Verified 06/27/20 01:31 Home Medications: Home Meds . [No Known Home Meds] 06/26/20 [History] Past Medical History - Past Health History Medical/Surgical History: Denies Medical/Surgical History HEENT History: Reports: None Cardiovascular History: Reports: High Cholesterol, Hypertension Respiratory History: Reports: None Gastrointestinal History: Reports: GI Bleed Genitourinary History: Reports: None Musculoskeletal History: Reports: None Neurological History: Reports: None Psychiatric History: Reports: None Endocrine/Metabolic History: Reports: None Hematologic History: Reports: None Immunologic History: Reports: None Oncologic (Cancer) History: Reports: None Dermatologic History: Reports: None - Infectious Disease History Infectious Disease History: Reports: None - Past Surgical History Head Surgeries/Procedures: Reports: None HEENT Surgical History: Reports: None Cardiovascular Surgical History: Reports: None Respiratory Surgical History: Reports: None GI Surgical History: Reports: EGD Male Surgical History: Reports: None Endocrine Surgical History: Reports: None Neurological Surgical History: Reports: None Musculoskeletal Surgical History: Reports: None Oncologic Surgical History: Reports: None Dermatological Surgical History: Reports: None Social & Family History - Family History Family Medical History: No Pertinent Family History - Tobacco Use Tobacco Use Status *Q: Current Every Day Tobacco User Years of Tobacco use: 50 Packs/Tins Daily: 0 Used Tobacco, but Quit: No Second Hand Smoke Exposure: No - Caffeine Use Caffeine Use: Reports: None Caffeine Use Comment: once in a while use of coffee. - Alcohol Use Days Per Week of Alcohol Use: 7 Number of Drinks Per Day: 6 Total Drinks Per Week: 42 Date of Last Drink: 06/26/20 Time of Last Drink: 06:30 - Recreational Drug Use Recreational Drug Use: No H&P Review of Systems - Review of Systems: Review Of Systems: See Below General: Reports: Malaise, Weakness (Generalized). Denies: Fever, Chills Pulmonary: Reports: No Symptoms. Denies: Shortness of Breath Cardiovascular: Reports: No Symptoms. Denies: Chest Pain Gastrointestinal: Reports: No Symptoms. Denies: Abdominal Pain, Black Stool, Bloody Stool, Nausea, Vomiting Genitourinary: Reports: No Symptoms. Denies: Dysuria, Frequency, Burning Musculoskeletal: Reports: No Symptoms. Denies: Neck Pain, Muscle Pain Skin: Reports: No Symptoms Psychiatric: Reports: No Symptoms Neurological: Reports: Tremors Hematologic/Lymphatic: Reports: No Symptoms Immunologic: Reports: No Symptoms Exam - Exam Exam: See Below - Vital Signs Vital Signs: Last Vital Signs Temp 99.0 F 06/27/20 03:33 Pulse 71 06/27/20 03:33 Resp 18 06/27/20 03:33 BP 134/80 06/27/20 03:33 Pulse Ox 93 L 06/27/20 03:33 Weight: 63.367 kg - Exam General: Alert, Oriented HEENT: Conjunctiva Clear, Mucosa Moist & [place] Neck: Supple, Trachea Midline Lungs: Clear to Auscultation, Normal Respiratory Effort Cardiovascular: Regular Rate, Regular Rhythm GI/Abdominal Exam: Normal Bowel Sounds, Soft Back Exam: Normal Inspection, Full Range of Motion Extremities: Normal Inspection, Normal Range of Motion, Non-Tender Neuro Extensive - Mental Status: Alert, Oriented x3 Neuro Extensive - Motor, Sensory, Reflexes: CN II-XII Intact, Ataxia, Tremor. No: Normal Gait Psychiatric: Alert, Withdrawal Symptoms. No: Normal Affect (Flat affect) - Patient Data Lab Results Last 24 hrs: Laboratory Results - last 24 hr 06/26/20 06/26/20 06/26/20 Range/Units 21:06 21:06 21:10 WBC 6.21 (4.0-11.0) K/uL RBC 4.24 L (4.50-5.90) M/uL Hgb 13.8 (13.0-17.0) g/dL Hct 39.7 (38.0-50.0) % MCV 93.6 (80.0-98.0) fL MCH 32.5 H (27.0-32.0) pg MCHC 34.8 (31.0-37.0) g/dL RDW Std Deviation 59.2 (28.0-62.0) fl RDW Coeff of Stephane 17 H (11.0-15.0) % Plt Count 57 L (150-400) K/uL MPV 11.30 (7.40-12.00) fL Neut % (Auto) 55.0 (48.0-80.0) % Lymph % (Auto) 35.1 (16.0-40.0) % [place] % (Auto) 8.9 (0.0-15.0) % Eos % (Auto) 0.5 (0.0-7.0) % Baso % (Auto) 0.5 (0.0-1.5) % Neut # (Auto) 3.4 (1.4-5.7) K/uL Lymph # (Auto) 2.2 (0.6-2.4) K/uL [place] # (Auto) 0.6 (0.0-0.8) K/uL Eos # (Auto) 0.0 (0.0-0.7) K/uL Baso # (Auto) 0.0 (0.0-0.1) K/uL Nucleated RBC % 0.0 /100WBC Nucleated RBCs # 0 K/uL Sodium 146 (136-148) mmol/L Potassium 3.9 (3.5-5.1) mmol/L Chloride 101 (98-107) mmol/L Carbon Dioxide 26.4 (21.0-32.0) mmol/L BUN 4 L (7.0-18.0) mg/dL Creatinine 0.8 (0.8-1.3) mg/dL Est Cr Clr Drug Dosing TNP Estimated GFR (MDRD) > 60.0 ml/min Glucose 60 L (74-106) mg/dL Calcium 8.4 L (8.5-10.1) mg/dL Phosphorus (2.6-4.7) mg/dL Magnesium 1.5 L (1.8-2.4) mg/dL Total Bilirubin 1.6 H (0.2-1.0) mg/dL AST 181 H (15-37) IU/L ALT 40 (14-63) IU/L Alkaline Phosphatase 115 (46-116) U/L Creatine Kinase 145 (26-308) U/L Total Protein 8.1 (6.4-8.2) g/dL Albumin 3.2 L (3.4-5.0) g/dL Globulin 4.9 H (2.6-4.0) g/dL Albumin/Globulin Ratio 0.7 L (0.9-1.6) Ethyl Alcohol 373 mg/dL SARS-CoV-2 RNA (EMANI) POSITIVE H (NEGATIVE) 06/27/20 06/27/20 06/27/20 Range/Units 06:04 06:04 06:04 WBC 4.31 (4.0-11.0) K/uL RBC 3.76 L (4.50-5.90) M/uL Hgb 12.3 L (13.0-17.0) g/dL Hct 34.8 L (38.0-50.0) % MCV 92.6 (80.0-98.0) fL MCH 32.7 H (27.0-32.0) pg MCHC 35.3 (31.0-37.0) g/dL RDW Std Deviation 57.5 (28.0-62.0) fl RDW Coeff of Stephane 17 H (11.0-15.0) % Plt Count 47 L (150-400) K/uL MPV 10.90 (7.40-12.00) fL Neut % (Auto) 57.5 (48.0-80.0) % Lymph % (Auto) 29.5 (16.0-40.0) % [place] % (Auto) 11.8 (0.0-15.0) % Eos % (Auto) 0.5 (0.0-7.0) % Baso % (Auto) 0.7 (0.0-1.5) % Neut # (Auto) 2.5 (1.4-5.7) K/uL Lymph # (Auto) 1.3 (0.6-2.4) K/uL [place] # (Auto) 0.5 (0.0-0.8) K/uL Eos # (Auto) 0.0 (0.0-0.7) K/uL Baso # (Auto) 0.0 (0.0-0.1) K/uL Nucleated RBC % 0.0 /100WBC Nucleated RBCs # 0 K/uL Sodium 146 (136-148) mmol/L Potassium 3.3 L (3.5-5.1) mmol/L Chloride 105 (98-107) mmol/L Carbon Dioxide 24.4 (21.0-32.0) mmol/L BUN 3 L (7.0-18.0) mg/dL Creatinine 0.6 L (0.8-1.3) mg/dL Est Cr Clr Drug Dosing 108.55 Estimated GFR (MDRD) > 60.0 ml/min Glucose 105 (74-106) mg/dL Calcium 7.6 L (8.5-10.1) mg/dL Phosphorus 3.0 (2.6-4.7) mg/dL Magnesium 1.7 L (1.8-2.4) mg/dL Total Bilirubin (0.2-1.0) mg/dL AST (15-37) IU/L ALT (14-63) IU/L Alkaline Phosphatase (46-116) U/L Creatine Kinase (26-308) U/L Total Protein (6.4-8.2) g/dL Albumin (3.4-5.0) g/dL Globulin (2.6-4.0) g/dL Albumin/Globulin Ratio (0.9-1.6) Ethyl Alcohol mg/dL SARS-CoV-2 RNA (EMANI) (NEGATIVE) Result Diagrams: 06/27/20 06:04 06/27/20 06:04 Sepsis Event Note - Evaluation Sepsis Screening Result: No Definite Risk - Focused Exam Vital Signs: Vital Signs Temp Pulse Resp BP Pulse Ox 06/27/20 03:33 99.0 F 71 18 134/80 93 L 06/27/20 01:00 99.0 F 80 18 138/83 95 06/27/20 00:05 72 18 132/87 98 06/26/20 23:19 86 18 143/89 H 100 06/26/20 21:05 96 06/26/20 21:00 97.4 F 97 16 141/89 H 92 L - Problem List (1) Alcohol intoxication SNOMED Code(s): 98999683 ICD Code: F10.929 - ALCOHOL USE, UNSPECIFIED WITH INTOXICATION, UNSPECIFIED Status: Acute Current Visit: Yes Qualifiers: Complication of substance-induced condition: uncomplicated Qualified Code(s): F10.920 - Alcohol use, unspecified with intoxication, uncomplicated (2) Hypomagnesemia SNOMED Code(s): 684587357 ICD Code: E83.42 - HYPOMAGNESEMIA Status: Acute Current Visit: Yes (3) Alcohol abuse with physiological dependence SNOMED Code(s): 22180571, 41381239 ICD Code: F10.20 - ALCOHOL DEPENDENCE, UNCOMPLICATED Status: Acute Current Visit: No (4) Ataxia SNOMED Code(s): 09196472 ICD Code: R27.0 - ATAXIA, UNSPECIFIED Status: Acute Current Visit: No (5) Elevated liver enzymes SNOMED Code(s): 127275898 ICD Code: R74.8 - ABNORMAL LEVELS OF OTHER SERUM ENZYMES Status: Acute Current Visit: No (6) Hypokalemia SNOMED Code(s): 81843280 ICD Code: E87.6 - HYPOKALEMIA Status: Acute Current Visit: No (7) Hypophosphatemia SNOMED Code(s): 6171308 ICD Code: E83.39 - OTHER DISORDERS OF PHOSPHORUS METABOLISM Status: Acute Current Visit: No (8) Alcohol use SNOMED Code(s): 375978 ICD Code: Z72.89 - OTHER PROBLEMS RELATED TO LIFESTYLE Status: Chronic Priority: High Current Visit: No (9) Tobacco use SNOMED Code(s): 726579370 ICD Code: Z72.0 - TOBACCO USE Status: Chronic Priority: High Current Visit: No (10) Thrombocytopenia SNOMED Code(s): 167477735 ICD Code: D69.6 - THROMBOCYTOPENIA, UNSPECIFIED Status: Resolved Priority: High Current Visit: No (11) COVID-19 SNOMED Code(s): 338936456 ICD Code: U07.1 - COVID-19 Status: Acute Current Visit: Yes Problem List Initiated/Reviewed/Updated: Yes Orders Last 24hrs: Active Orders 24 hr Category Date Time Status Admission Status [Patient Status] [ADT] Stat ADT 06/27/20 00:06 Active Ambulate [RC] ASDIRECTED Care 06/27/20 01:54 Active Antiembolic Devices [RC] PER UNIT ROUTINE Care 06/27/20 01:53 Active CIWAA Assessment [RC] Q4H Care 06/26/20 21:12 Active Cardiac Monitoring [RC] Q8H Care 06/27/20 00:06 Active Oxygen Therapy [RC] ASDIRECTED Care 06/27/20 01:53 Active RT Post Treatment Assessment [RC] Click to Edit Care 06/27/20 01:52 Active RT Pre-Treatment Assessment [RC] Click to Edit Care 06/27/20 01:52 Active Telemetry Monitoring [Cardiac Monitoring] [RC] . Care 06/27/20 02:43 Active DIRECTED Vital Signs [RC] Q4H Care 06/27/20 01:53 Active Heart Healthy Diet [DIET] Diet 06/27/20 Breakfast Active Albuterol/Ipratropium [Combivent Respimat] Med 06/27/20 01:50 Active See Dose Instructions INH Q4H PRN Dextrose 5%-0.9% NaCl [Dextrose 5%-Normal Saline] 1,000 Med 06/27/20 00:15 Active ml IV ASDIRECTED Folic Acid Med 06/27/20 02:00 Active 1 mg SUBCUT DAILY Ibuprofen [Motrin] Med 06/27/20 01:50 Active 200 mg PO Q6H PRN LORazepam [Ativan] Med 06/26/20 21:14 Active 1 mg IVPUSH ONETIME PRN LORazepam [Ativan] Med 06/27/20 01:52 Active See Protocol IVPUSH Q4H PRN Lactated Ringers [Ringers, Lactated] 1,000 ml Med 06/27/20 02:00 Active IV ASDIRECTED Ondansetron [Zofran] Med 06/27/20 01:47 Active 4 mg IVPUSH Q4H PRN Pantoprazole [ProTONIX IV] 40 mg Med 06/28/20 07:30 Active Sodium Chloride 0.9% [Normal Saline] 10 ml IV Q24H Thiamine [Vitamin B-1] 100 mg Med 06/27/20 02:00 Active Sodium Chloride 0.9% [Normal Saline] 100 ml IV DAILY SCD [Sequential Compression Device] [OM.PC] Routine Oth 06/27/20 01:53 Ordered Medication Orders Albuterol/Ipratropium (Combivent Respimat) 0 gm INH Q4H PRN PRN Reason: Dyspnea Folic Acid (Folic Acid) 1 mg SUBCUT DAILY [facility] Last Admin: 06/27/20 03:01 Dose: 1 mg Documented by: VIVIAN Dextrose/Sodium Chloride (Dextrose 5%-Normal Saline) 1,000 mls @ 125 mls/hr IV ASDIRECTED [facility] Last Admin: 06/27/20 00:18 Dose: 125 mls/hr Documented by: TERRENCE Pantoprazole Sodium 40 mg/ (Sodium Chloride) 10 mls @ 300 mls/hr IV Q24H MARCEL Lactated Ringer's (Ringers, Lactated) 1,000 mls @ 100 mls/hr IV ASDIRECTED [facility] Last Admin: 06/27/20 06:41 Dose: 100 mls/hr Documented by: VIVIAN Thiamine HCl 100 mg/ Sodium (Chloride) 101 mls @ 202 mls/hr IV DAILY [facility] Last Admin: 06/27/20 03:03 Dose: 202 mls/hr Documented by: VIVIAN Ibuprofen (Motrin) 200 mg PO Q6H PRN PRN Reason: Pain Lorazepam (Ativan) 1 mg IVPUSH ONETIME PRN PRN Reason: Agitation Lorazepam (Ativan) 0 mg IVPUSH Q4H PRN; Protocol PRN Reason: CIWAA Ondansetron HCl (Zofran) 4 mg IVPUSH Q4H PRN PRN Reason: Nausea/Vomiting Assessment/Plan Comment:: 65 yo male admitted for ETOH abuse and ataxia 1. ETOH abuse/withdrawal -Continue CIWAA protocol with Ativan as needed -Continue thiamine and folic acid -Consult PT for ataxia -Valium 5 mg p.o. twice daily 2. Hypokalemia/hypomagnesemia -Replace potassium p.o. today and magnesium IV 2 g -Recheck lab work in a.m. along with phosphorus 3. Transaminitis and thrombocytopenia -Likely secondary to alcohol abuse -Continue to monitor daily 4. COVID-19 -Currently asymptomatic we will continue to monitor VTE prophylaxis: SCDs due to thrombocytopenia CODE STATUS: Full code Dispo: 2 to 3 days - Mortality Measure Prognosis:: Good
[2020-06-27] MEDS ORDERED: Potassium Chloride 20 MEQ Tab.ER PO ONE (10:08)
[2020-06-27] MEDS ORDERED: Magnesium Sulfate/Water 2 GM/50 ML BAG IV ONE (10:08)
[2020-06-27] MEDS: Diazepam 5 MG Tab PO SCH ×2 (10:17→20:57)
[2020-06-27] MEDS: LORazepam 2 MG/ML SDV IVPUSH PRN ×2 (12:29→17:03)
[2020-06-27] MEDS: Pantoprazole 40 MG in Sodium Chloride 0.9% 10 ML IV SCH (17:56)
[2020-06-28] MEDS: Lactated Ringers 1,000 ML IV SCH (04:01)
[2020-06-28] MEDS: Pantoprazole 40 MG in Sodium Chloride 0.9% 10 ML IV SCH ×2 (05:55→17:15)
[2020-06-28 06:38] LABS: CARBON DIOXIDE,CO2 28.1 mmol/L (21.0-32.0); CHLORIDE,CL 97 mmol/L (98-107); GLUCOSE RANDOM 130 mg/dL (74-106); POTASSIUM,K 3.1 mmol/L (3.5-5.1); SODIUM,NA 136 mmol/L (136-148)
[2020-06-28 06:56] LABS: BLOOD UREA NITROGEN,BUN 2 mg/dL (7.0-18.0)
[2020-06-28] MEDS ORDERED: Pantoprazole 40 MG in Sodium Chloride 0.9% 10 ML IV SCH (07:30)
--- NOTE | 2020-06-28 07:46 | PCM.PN ---
- General Info Date of Service: 06/28/20 Admission Dx/Problem (Free Text): Admission Diagnosis/Problem Admission Diagnosis/Problem Hypoglycemia Subjective Update: Reports he is feeling continued weakness in his legs and has difficulty ambulating. The nurse reports he was up with assist of 1 and gait belt as well as walker. He had a shuffling gait and was very ataxic. He continues to have tremors which are improved he denies any hallucinations or anxieties. He denies any cough shortness of breath chest pain or abdominal pain. He is eating and drinking appropriately. He denies any fever sinus congestion. He is just concerned he is unable to walk. Functional Status: Reports: Pain Controlled, Tolerating Diet, Ambulating, Urinating - Review of Systems General: Reports: Fatigue, Malaise HEENT: Denies: Headaches, Sore Throat, Visual Changes Pulmonary: Reports: No Symptoms. Denies: Shortness of Breath Cardiovascular: Reports: No Symptoms. Denies: Chest Pain Gastrointestinal: Denies: Abdominal Pain, Nausea, Vomiting Genitourinary: Reports: No Symptoms. Denies: Dysuria, Frequency Musculoskeletal: Reports: No Symptoms. Denies: Neck Pain, Back Pain Skin: Reports: No Symptoms Neurological: Reports: Tremors Psychiatric: Reports: No Symptoms - Patient Data Vitals - Most Recent: Last Vital Signs Temp 99.7 F 06/28/20 07:37 Pulse 93 06/28/20 07:37 Resp 18 06/28/20 07:37 BP 152/90 H 06/28/20 07:37 Pulse Ox 98 06/28/20 07:37 Weight - Most Recent: 63.367 kg I&O - Last 24 Hours: Intake & Output 06/27/20 06/28/20 06/28/20 22:59 06:59 14:59 Intake Total 240 1831 Output Total 325 770 Balance -85 1061 Lab Results Last 24 Hours: Laboratory Results - last 24 hr 06/26/20 06/27/20 06/27/20 Range/Units 21:29 00:10 11:02 WBC (4.0-11.0) K/uL RBC (4.50-5.90) M/uL Hgb (13.0-17.0) g/dL Hct (38.0-50.0) % MCV (80.0-98.0) fL MCH (27.0-32.0) pg MCHC (31.0-37.0) g/dL RDW Std Deviation (28.0-62.0) fl RDW Coeff of Stephane (11.0-15.0) % Plt Count (150-400) K/uL Neut % (Auto) (48.0-80.0) % Lymph % (Auto) (16.0-40.0) % [place] % (Auto) (0.0-15.0) % Eos % (Auto) (0.0-7.0) % Baso % (Auto) (0.0-1.5) % Neut # (Auto) (1.4-5.7) K/uL Lymph # (Auto) (0.6-2.4) K/uL [place] # (Auto) (0.0-0.8) K/uL Eos # (Auto) (0.0-0.7) K/uL Baso # (Auto) (0.0-0.1) K/uL Nucleated RBC % /100WBC Nucleated RBCs # K/uL Sodium (136-148) mmol/L Potassium (3.5-5.1) mmol/L Chloride (98-107) mmol/L Carbon Dioxide (21.0-32.0) mmol/L BUN (7.0-18.0) mg/dL Creatinine (0.8-1.3) mg/dL Est Cr Clr Drug Dosing mL/min Estimated GFR (MDRD) ml/min Glucose (74-106) mg/dL POC Glucose 166 H 70 136 H (60-110) mg/dL Calcium (8.5-10.1) mg/dL Phosphorus (2.6-4.7) mg/dL Magnesium (1.8-2.4) mg/dL Total Bilirubin (0.2-1.0) mg/dL AST (15-37) IU/L ALT (14-63) IU/L Alkaline Phosphatase (46-116) U/L Total Protein (6.4-8.2) g/dL Albumin (3.4-5.0) g/dL Globulin (2.6-4.0) g/dL Albumin/Globulin Ratio (0.9-1.6) 06/27/20 06/28/20 06/28/20 Range/Units 18:02 06:10 06:10 WBC 5.58 (4.0-11.0) K/uL RBC 4.16 L (4.50-5.90) M/uL Hgb 13.7 (13.0-17.0) g/dL Hct 38.6 (38.0-50.0) % MCV 92.8 (80.0-98.0) fL MCH 32.9 H (27.0-32.0) pg MCHC 35.5 (31.0-37.0) g/dL RDW Std Deviation 56.3 (28.0-62.0) fl RDW Coeff of Stephane 17 H (11.0-15.0) % Plt Count 46 L (150-400) K/uL Neut % (Auto) 62.5 (48.0-80.0) % Lymph % (Auto) 26.3 (16.0-40.0) % [place] % (Auto) 10.6 (0.0-15.0) % Eos % (Auto) 0.4 (0.0-7.0) % Baso % (Auto) 0.2 (0.0-1.5) % Neut # (Auto) 3.5 (1.4-5.7) K/uL Lymph # (Auto) 1.5 (0.6-2.4) K/uL [place] # (Auto) 0.6 (0.0-0.8) K/uL Eos # (Auto) 0.0 (0.0-0.7) K/uL Baso # (Auto) 0.0 (0.0-0.1) K/uL Nucleated RBC % 0.9 /100WBC Nucleated RBCs # 0 K/uL Sodium 136 (136-148) mmol/L Potassium 3.1 L (3.5-5.1) mmol/L Chloride 97 L (98-107) mmol/L Carbon Dioxide 28.1 (21.0-32.0) mmol/L BUN 2 L (7.0-18.0) mg/dL Creatinine 0.7 L (0.8-1.3) mg/dL Est Cr Clr Drug Dosing 93.04 mL/min Estimated GFR (MDRD) > 60.0 ml/min Glucose 130 H (74-106) mg/dL POC Glucose 190 H (60-110) mg/dL Calcium 8.5 (8.5-10.1) mg/dL Phosphorus 1.7 L (2.6-4.7) mg/dL Magnesium 1.3 L (1.8-2.4) mg/dL Total Bilirubin 1.9 H (0.2-1.0) mg/dL AST 98 H (15-37) IU/L ALT 24 (14-63) IU/L Alkaline Phosphatase 99 (46-116) U/L Total Protein 7.1 (6.4-8.2) g/dL Albumin 2.7 L (3.4-5.0) g/dL Globulin 4.4 H (2.6-4.0) g/dL Albumin/Globulin Ratio 0.6 L (0.9-1.6) 06/28/20 Range/Units 06:14 WBC (4.0-11.0) K/uL RBC (4.50-5.90) M/uL Hgb (13.0-17.0) g/dL Hct (38.0-50.0) % MCV (80.0-98.0) fL MCH (27.0-32.0) pg MCHC (31.0-37.0) g/dL RDW Std Deviation (28.0-62.0) fl RDW Coeff of Stephane (11.0-15.0) % Plt Count (150-400) K/uL Neut % (Auto) (48.0-80.0) % Lymph % (Auto) (16.0-40.0) % [place] % (Auto) (0.0-15.0) % Eos % (Auto) (0.0-7.0) % Baso % (Auto) (0.0-1.5) % Neut # (Auto) (1.4-5.7) K/uL Lymph # (Auto) (0.6-2.4) K/uL [place] # (Auto) (0.0-0.8) K/uL Eos # (Auto) (0.0-0.7) K/uL Baso # (Auto) (0.0-0.1) K/uL Nucleated RBC % /100WBC Nucleated RBCs # K/uL Sodium (136-148) mmol/L Potassium (3.5-5.1) mmol/L Chloride (98-107) mmol/L Carbon Dioxide (21.0-32.0) mmol/L BUN (7.0-18.0) mg/dL Creatinine (0.8-1.3) mg/dL Est Cr Clr Drug Dosing mL/min Estimated GFR (MDRD) ml/min Glucose (74-106) mg/dL POC Glucose 137 H (60-110) mg/dL Calcium (8.5-10.1) mg/dL Phosphorus (2.6-4.7) mg/dL Magnesium (1.8-2.4) mg/dL Total Bilirubin (0.2-1.0) mg/dL AST (15-37) IU/L ALT (14-63) IU/L Alkaline Phosphatase (46-116) U/L Total Protein (6.4-8.2) g/dL Albumin (3.4-5.0) g/dL Globulin (2.6-4.0) g/dL Albumin/Globulin Ratio (0.9-1.6) Med Orders - Current: Current Medications Albuterol/Ipratropium (Combivent Respimat) 0 gm INH Q4H PRN PRN Reason: Dyspnea Diazepam (Valium.) 5 mg PO BID [facility] Last Admin: 06/27/20 20:57 Dose: 5 mg Documented by: Folic Acid (Folic Acid) 1 mg SUBCUT DAILY [facility] Lactated Ringer's (Ringers, Lactated) 1,000 mls @ 100 mls/hr IV ASDIRECTED [facility] Last Admin: 06/28/20 04:01 Dose: 100 mls/hr Documented by: Thiamine HCl 100 mg/ Sodium (Chloride) 101 mls @ 202 mls/hr IV DAILY [facility] Last Admin: 06/27/20 03:03 Dose: 202 mls/hr Documented by: Pantoprazole Sodium 40 mg/ (Sodium Chloride) 10 mls @ 300 mls/hr IV Q12H [facility] Last Admin: 06/28/20 05:55 Dose: 300 mls/hr Documented by: Magnesium Sulfate (Magnesium Sulfate In Water 4 Gm/100 Ml) 4 gm in 100 mls @ 50 mls/hr IV ONETIME ONE Stop: 06/28/20 09:44 Potassium Chloride/Sodium Chloride (Normal Saline With 40 Meq Kcl) 1,000 mls @ 125 mls/hr IV ONETIME ONE Stop: 06/28/20 15:44 Lorazepam (Ativan) 0 mg IVPUSH Q4H PRN; Protocol PRN Reason: CIWAA Last Admin: 06/27/20 17:03 Dose: 1 mg Documented by: Ondansetron HCl (Zofran) 4 mg IVPUSH Q4H PRN PRN Reason: Nausea/Vomiting Last Admin: 06/27/20 12:29 Dose: 4 mg Documented by: Potassium Chloride (Klor-Con M20) 40 meq PO BIDMEALS [facility] Sodium Phosphate (Neutra-Phos) 250 mg PO QID [facility] Discontinued Medications Bacitracin (Bacitracin Oint 1 Gm) 2 dose TOP ONETIME ONE Stop: 06/26/20 22:57 Last Admin: 06/26/20 23:01 Dose: Not Given Documented by: Dextrose/Water (Dextrose 50% In Water) 50 ml IVPUSH ONETIME ONE Stop: 06/26/20 21:01 Last Admin: 06/26/20 21:04 Dose: 50 ml Documented by: Dextrose/Water (Dextrose 50% In Water) Confirm Administered Dose 50 ml .ROUTE .STK-MED ONE Stop: 06/26/20 21:05 Last Admin: 06/26/20 21:09 Dose: Not Given Documented by: Folic Acid (Folic Acid) 1 mg SUBCUT DAILY [facility] Last Admin: 06/27/20 03:01 Dose: 1 mg Documented by: Multivitamins/Minerals 10 ml/Thiamine HCl 100 mg/ Folic Acid 1 mg/ Sodium C hloride 1,011.2 mls @ 999 mls/hr IV ONETIME ONE Stop: 06/26/20 22:00 Last Admin: 06/26/20 21:25 Dose: 999 mls/hr Documented by: Magnesium Sulfate (Magnesium Sulfate In Water 2 Gm/50 Ml) 2 gm in 50 mls @ 50 mls/hr IV ONETIME ONE Stop: 06/26/20 23:59 Last Admin: 06/26/20 23:16 Dose: 50 mls/hr Documented by: Dextrose/Sodium Chloride (Dextrose 5%-Normal Saline) 1,000 mls @ 125 mls/hr IV ASDIRECTED [facility] Last Admin: 06/27/20 00:18 Dose: 125 mls/hr Documented by: Pantoprazole Sodium 40 mg/ (Sodium Chloride) 10 mls @ 300 mls/hr IV Q24H [facility] Pantoprazole Sodium 40 mg/ (Sodium Chloride) 10 mls @ 300 mls/hr IV ONETIME ONE Stop: 06/27/20 02:31 Last Admin: 06/27/20 03:00 Dose: 300 mls/hr Documented by: Magnesium Sulfate (Magnesium Sulfate In Water 2 Gm/50 Ml) 2 gm in 50 mls @ 50 mls/hr IV ONETIME ONE Stop: 06/27/20 11:07 Last Admin: 06/27/20 11:04 Dose: 50 mls/hr Documented by: Ibuprofen (Motrin) 200 mg PO Q6H PRN PRN Reason: Pain Lorazepam (Ativan) 1 mg IVPUSH ONETIME PRN PRN Reason: Agitation Magnesium Sulfate (Magnesium Sulfate 50%) 2 gm IV ONETIME STA Stop: 06/26/20 22:51 Potassium Chloride (Klor-Con M20) 40 meq PO ONETIME ONE Stop: 06/27/20 10:09 Last Admin: 06/27/20 11:04 Dose: 40 meq Documented by: - Exam Quality Assessment: DVT Prophylaxis (SCDs only due to thrombocytopenia). No: Supplemental Oxygen General: Alert, Oriented, Cooperative, No Acute Distress HEENT: Pupils Equal, Pupils Reactive, Other (Nystagmus noted today) Lungs: Clear to Auscultation, Normal Respiratory Effort Cardiovascular: Regular Rate, Regular Rhythm GI/Abdominal Exam: Normal Bowel Sounds, Soft, Non-Tender, No Distention, No Mass Back Exam: Normal Inspection, Full Range of Motion Extremities: Normal Inspection, Normal Range of Motion, Non-Tender, No Pedal Edema Skin: Warm, Dry Wound/Incisions: Decubitis (Stage II ulcer noted to coccyx. Dressing intact) Neurological: Other (Ataxic gait, tremors noted). No: Normal Gait Psy/Mental Status: Withdrawal Symptoms Sepsis Event Note - Evaluation Sepsis Screening Result: No Definite Risk - Focused Exam Vital Signs: Vital Signs Temp Pulse Resp BP BP Pulse Ox 06/28/20 07:37 99.7 F 93 18 152/90 H 98 06/28/20 04:00 98.6 F 85 20 141/91 H 98 06/27/20 23:36 97.3 F 90 20 150/92 H 100 06/27/20 20:10 99.1 F 85 19 133/84 97 - Problem List & Annotations (1) Alcohol intoxication SNOMED Code(s): 26479472 Code(s): F10.929 - ALCOHOL USE, UNSPECIFIED WITH INTOXICATION, UNSPECIFIED Status: Acute Current Visit: Yes Qualifiers: Complication of substance-induced condition: uncomplicated Qualified Code(s): F10.920 - Alcohol use, unspecified with intoxication, uncomplicated (2) Hypomagnesemia SNOMED Code(s): 169213993 Code(s): E83.42 - HYPOMAGNESEMIA Status: Acute Current Visit: Yes (3) Alcohol abuse with physiological dependence SNOMED Code(s): 93298658, 30059622 Code(s): F10.20 - ALCOHOL DEPENDENCE, UNCOMPLICATED Status: Acute Current Visit: No (4) Ataxia SNOMED Code(s): 87872010 Code(s): R27.0 - ATAXIA, UNSPECIFIED Status: Acute Current Visit: No (5) Elevated liver enzymes SNOMED Code(s): 019451096 Code(s): R74.8 - ABNORMAL LEVELS OF OTHER SERUM ENZYMES Status: Acute Current Visit: No (6) Hypokalemia SNOMED Code(s): 08092869 Code(s): E87.6 - HYPOKALEMIA Status: Acute Current Visit: No (7) Hypophosphatemia SNOMED Code(s): 0253352 Code(s): E83.39 - OTHER DISORDERS OF PHOSPHORUS METABOLISM Status: Acute Current Visit: No (8) Alcohol use SNOMED Code(s): 689719 Code(s): Z72.89 - OTHER PROBLEMS RELATED TO LIFESTYLE Status: Chronic Priority: High Current Visit: No (9) Tobacco use SNOMED Code(s): 703365707 Code(s): Z72.0 - TOBACCO USE Status: Chronic Priority: High Current Visit: No (10) Thrombocytopenia SNOMED Code(s): 786833252 Code(s): D69.6 - THROMBOCYTOPENIA, UNSPECIFIED Status: Chronic Priority: High Current Visit: No (11) COVID-19 SNOMED Code(s): 470250182 Code(s): U07.1 - COVID-19 Status: Acute Current Visit: Yes (12) Protein malnutrition SNOMED Code(s): 455046987 Code(s): E46 - UNSPECIFIED PROTEIN-CALORIE MALNUTRITION Status: Chronic Current Visit: Yes (13) Decubitus ulcer of coccygeal region, stage 2 SNOMED Code(s): 730205886 Code(s): L89.152 - PRESSURE ULCER OF SACRAL REGION, STAGE 2 Status: Chronic Current Visit: Yes - Problem List Review Problem List Initiated/Reviewed/Updated: Yes - My Orders Last 24 Hours: My Active Orders 06/27/20 08:19 Intake and Output [RC] Q12H VTE/DVT Education [RC] PER UNIT ROUTINE Resuscitation Status Routine 06/27/20 09:13 PT Evaluation and Treatment [CONS] Routine 06/27/20 10:09 Blood Glucose Check, Bedside [RC] TIDMEALS 06/27/20 10:15 diazePAM [Valium.] 5 mg PO BID 06/27/20 18:00 Pantoprazole [ProTONIX IV] 40 mg Sodium Chloride 0.9% [Normal Saline] 10 ml IV Q12H 06/28/20 07:44 Phosphorus #1 [Neutra-Phos] 250 mg PO QID 06/28/20 07:45 Magnesium Sulfate non-OB 4 GM ONETIME Magnesium Sulfate/Water [Magnesium Sulfate in Water 4 GM/100 ML] 4 gm in 100 ml IV ONETIME Sodium Chloride 0.9% with KCl [Normal Saline with 40 mEq KCl] 1,000 ml IV ONETIME 06/28/20 08:00 Potassium Chloride [Klor-Con M20] 40 meq PO BIDMEALS - Plan Plan:: 65 yo male admitted for ETOH abuse and ataxia 1. ETOH abuse/withdrawal/Wernicke's -Continue CIWAA protocol with Ativan as needed -Continue folic acid -Ataxia continues and nystagmus is noted today. Will start high-dose thiamine 500 mg 3 times daily for 2 days then transition to 250 mg daily for 5 days. -Consult PT for ataxia -Valium 5 mg p.o. twice daily 2. Hypokalemia/hypomagnesemia/hypophosphatemia -Replace potassium p.o. today 40 p.o. and IV and magnesium IV 4 g -Phosphorus 4 times daily -Recheck lab work in a.m. 3. Transaminitis and thrombocytopenia -Stable -Likely secondary to alcohol abuse -Continue to monitor daily 4. COVID-19 -Currently asymptomatic we will continue to monitor 5. Coccygeal decubitus -Likely secondary to inactivity and protein malnutrition along with chronic alcohol abuse -Dressing intact no signs of infection -Consult wound care to evaluate VTE prophylaxis: SCDs due to thrombocytopenia CODE STATUS: Full code Dispo: We will make inpatient today as he needs high-dose thiamine for the next few days IV.
[2020-06-28] MEDS ORDERED: Magnesium Sulfate/Water 4 GM/100 ML BAG IV ONE (08:00)
[2020-06-28] MEDS ORDERED: Sodium Chloride 0.9% with KCl 1,000 ML IV ONE (08:00)
[2020-06-28] MEDS: Potassium Chloride 20 MEQ Tab.ER PO SCH ×2 (08:10→17:15)
[2020-06-28] MEDS: Phosphorus #1 250 MG Tab PO SCH ×3 (08:10→17:15)
[2020-06-28] MEDS: Diazepam 5 MG Tab PO SCH ×2 (08:11→21:13)
[2020-06-28] MEDS: Folic Acid 50 MG/10 ML MDV SUBCUT SCH (08:11)
[2020-06-28] MEDS ORDERED: Thiamine 500 MG in Sodium Chloride 0.9% 100 ML IV SCH (09:00)
[2020-06-28] MEDS: Thiamine 500 MG in Sodium Chloride 0.9% 250 ML IV SCH ×2 (10:00→17:25)
[2020-06-29] MEDS: Phosphorus #1 250 MG Tab PO SCH ×3 (00:31→11:31)
[2020-06-29] MEDS: Thiamine 500 MG in Sodium Chloride 0.9% 250 ML IV SCH ×2 (00:31→09:42)
[2020-06-29] MEDS: Pantoprazole 40 MG in Sodium Chloride 0.9% 10 ML IV SCH (05:00)
[2020-06-29 06:55] LABS: BLOOD UREA NITROGEN,BUN 2 mg/dL (7.0-18.0); CARBON DIOXIDE,CO2 26.3 mmol/L (21.0-32.0); CHLORIDE,CL 99 mmol/L (98-107); GLUCOSE RANDOM 106 mg/dL (74-106); POTASSIUM,K 3.8 mmol/L (3.5-5.1); SODIUM,NA 136 mmol/L (136-148)
--- NOTE | 2020-06-29 08:03 | PCM.PN ---
- General Info Date of Service: 06/29/20 Admission Dx/Problem (Free Text): Admission Diagnosis/Problem Admission Diagnosis/Problem Hypoglycemia - Patient Data Vitals - Most Recent: Last Vital Signs Temp 98.2 F 06/29/20 04:54 Pulse 93 06/29/20 04:54 Resp 17 06/29/20 04:54 BP 140/97 H 06/29/20 04:54 Pulse Ox 99 06/29/20 04:54 Weight - Most Recent: 63.367 kg I&O - Last 24 Hours: Intake & Output 06/28/20 06/29/20 06/29/20 22:59 06:59 14:59 Intake Total 1155 550 Output Total 1400 800 Balance -245 -250 Lab Results Last 24 Hours: Laboratory Results - last 24 hr 06/28/20 06/29/20 06/29/20 Range/Units 11:44 06:21 06:21 WBC 6.36 (4.0-11.0) K/uL RBC 4.60 (4.50-5.90) M/uL Hgb 15.2 (13.0-17.0) g/dL Hct 42.8 (38.0-50.0) % MCV 93.0 (80.0-98.0) fL MCH 33.0 H (27.0-32.0) pg MCHC 35.5 (31.0-37.0) g/dL RDW Std Deviation 55.6 (28.0-62.0) fl RDW Coeff of Stephane 16 H (11.0-15.0) % Plt Count 57 L (150-400) K/uL Neut % (Auto) 59.2 (48.0-80.0) % Lymph % (Auto) 28.1 (16.0-40.0) % [place] % (Auto) 11.2 (0.0-15.0) % Eos % (Auto) 1.3 (0.0-7.0) % Baso % (Auto) 0.2 (0.0-1.5) % Neut # (Auto) 3.8 (1.4-5.7) K/uL Lymph # (Auto) 1.8 (0.6-2.4) K/uL [place] # (Auto) 0.7 (0.0-0.8) K/uL Eos # (Auto) 0.1 (0.0-0.7) K/uL Baso # (Auto) 0.0 (0.0-0.1) K/uL Nucleated RBC % 0.0 /100WBC Nucleated RBCs # 0 K/uL Sodium 136 (136-148) mmol/L Potassium 3.8 (3.5-5.1) mmol/L Chloride 99 (98-107) mmol/L Carbon Dioxide 26.3 (21.0-32.0) mmol/L BUN 2 L (7.0-18.0) mg/dL Creatinine 0.7 L (0.8-1.3) mg/dL Est Cr Clr Drug Dosing 93.04 mL/min Estimated GFR (MDRD) > 60.0 ml/min Glucose 106 (74-106) mg/dL POC Glucose 160 H (60-110) mg/dL Calcium 9.2 (8.5-10.1) mg/dL Phosphorus 2.2 L (2.6-4.7) mg/dL Magnesium 1.6 L (1.8-2.4) mg/dL Total Bilirubin 1.8 H (0.2-1.0) mg/dL AST 110 H (15-37) IU/L ALT 29 (14-63) IU/L Alkaline Phosphatase 104 (46-116) U/L Total Protein 8.1 (6.4-8.2) g/dL Albumin 3.1 L (3.4-5.0) g/dL Globulin 5.0 H (2.6-4.0) g/dL Albumin/Globulin Ratio 0.6 L (0.9-1.6) Med Orders - Current: Current Medications Albuterol/Ipratropium (Combivent Respimat) 0 gm INH Q4H PRN PRN Reason: Dyspnea Diazepam (Valium.) 5 mg PO BID [facility] [place] Last Admin: 06/28/20 21:13 Dose: 5 mg Documented by: Folic Acid (Folic Acid) 1 mg SUBCUT DAILY [facility] [place] Last Admin: 06/28/20 08:11 Dose: 1 mg Documented by: Pantoprazole Sodium 40 mg/ (Sodium Chloride) 10 mls @ 300 mls/hr IV Q12H [facility] [place] Last Admin: 06/29/20 05:00 Dose: 300 mls/hr Documented by: Thiamine HCl 500 mg/ Sodium (Chloride) 255 mls @ 510 mls/hr IV Q8H [facility] [place] Last Admin: 06/29/20 00:31 Dose: 510 mls/hr Documented by: Magnesium Sulfate (Magnesium Sulfate In Water 2 Gm/50 Ml) 2 gm in 50 mls @ 50 mls/hr IV ONETIME ONE Stop: 06/29/20 09:00 Lorazepam (Ativan) 0 mg IVPUSH Q4H PRN; Protocol PRN Reason: CIWAA Last Admin: 06/27/20 17:03 Dose: 1 mg Documented by: Ondansetron HCl (Zofran) 4 mg IVPUSH Q4H PRN PRN Reason: Nausea/Vomiting Last Admin: 06/27/20 12:29 Dose: 4 mg Documented by: Potassium Chloride (Klor-Con M20) 40 meq PO BIDMEALS [facility] [place] Last Admin: 06/28/20 17:15 Dose: 40 meq Documented by: Sodium Phosphate (Neutra-Phos) 250 mg PO QID [facility] [place] Last Admin: 06/29/20 05:01 Dose: 250 mg Documented by: Discontinued Medications Bacitracin (Bacitracin Oint 1 Gm) 2 dose TOP ONETIME ONE Stop: 06/26/20 22:57 Last Admin: 06/26/20 23:01 Dose: Not Given Documented by: Dextrose/Water (Dextrose 50% In Water) 50 ml IVPUSH ONETIME ONE Stop: 06/26/20 21:01 Last Admin: 06/26/20 21:04 Dose: 50 ml Documented by: Dextrose/Water (Dextrose 50% In Water) Confirm Administered Dose 50 ml .ROUTE .STK-MED ONE Stop: 06/26/20 21:05 Last Admin: 06/26/20 21:09 Dose: Not Given Documented by: Folic Acid (Folic Acid) 1 mg SUBCUT DAILY [facility] [place] Last Admin: 06/27/20 03:01 Dose: 1 mg Documented by: Multivitamins/Minerals 10 ml/Thiamine HCl 100 mg/ Folic Acid 1 mg/ Sodium Chloride 1,011.2 mls @ 999 mls/hr IV ONETIME ONE Stop: 06/26/20 22:00 Last Admin: 06/26/20 21:25 Dose: 999 mls/hr Documented by: Magnesium Sulfate (Magnesium Sulfate In Water 2 Gm/50 Ml) 2 gm in 50 mls @ 50 mls/hr IV ONETIME ONE Stop: 06/26/20 23:59 Last Admin: 06/26/20 23:16 Dose: 50 mls/hr Documented by: Dextrose/Sodium Chloride (Dextrose 5%-Normal Saline) 1,000 mls @ 125 mls/hr IV ASDIRECTED [facility] [place] Last Admin: 06/27/20 00:18 Dose: 125 mls/hr Documented by: Pantoprazole Sodium 40 mg/ (Sodium Chloride) 10 mls @ 300 mls/hr IV Q24H [facility] [place] Lactated Ringer's (Ringers, Lactated) 1,000 mls @ 100 mls/hr IV ASDIRECTED [facility] [place] Last Admin: 06/28/20 04:01 Dose: 100 mls/hr Documented by: Thiamine HCl 100 mg/ Sodium (Chloride) 101 mls @ 202 mls/hr IV DAILY [facility] [place] Last Admin: 06/27/20 03:03 Dose: 202 mls/hr Documented by: Pantoprazole Sodium 40 mg/ (Sodium Chloride) 10 mls @ 300 mls/hr IV ONETIME ONE Stop: 06/27/20 02:31 Last Admin: 06/27/20 03:00 Dose: 300 mls/hr Documented by: Magnesium Sulfate (Magnesium Sulfate In Water 2 Gm/50 Ml) 2 gm in 50 mls @ 50 mls/hr IV ONETIME ONE Stop: 06/27/20 11:07 Last Admin: 06/27/20 11:04 Dose: 50 mls/hr Documented by: Magnesium Sulfate (Magnesium Sulfate In Water 4 Gm/100 Ml) 4 gm in 100 mls @ 50 mls/hr IV ONETIME ONE Stop: 06/28/20 09:59 Last Admin: 06/28/20 08:13 Dose: 50 mls/hr Documented by: Potassium Chloride/Sodium Chloride (Normal Saline With 40 Meq Kcl) 1,000 mls @ 125 mls/hr IV ONETIME ONE Stop: 06/28/20 15:59 Last Admin: 06/28/20 08:19 Dose: 125 mls/hr Documented by: Ibuprofen (Motrin) 200 mg PO Q6H PRN PRN Reason: Pain Lorazepam (Ativan) 1 mg IVPUSH ONETIME PRN PRN Reason: Agitation Magnesium Sulfate (Magnesium Sulfate 50%) 2 gm IV ONETIME STA Stop: 06/26/20 22:51 Potassium Chloride (Klor-Con M20) 40 meq PO ONETIME ONE Stop: 06/27/20 10:09 Last Admin: 06/27/20 11:04 Dose: 40 meq Documented by: Sepsis Event Note - Evaluation Sepsis Screening Result: No Definite Risk - Focused Exam Vital Signs: Vital Signs Temp Pulse Resp BP Pulse Ox 06/29/20 04:54 98.2 F 93 17 140/97 H 99 06/29/20 00:29 98.2 F 84 17 131/92 H 99 - Problem List & Annotations (1) Alcohol intoxication SNOMED Code(s): 66065160 Code(s): F10.929 - ALCOHOL USE, UNSPECIFIED WITH INTOXICATION, UNSPECIFIED Status: Acute Current Visit: Yes Qualifiers: Complication of substance-induced condition: uncomplicated Qualified Code(s): F10.920 - Alcohol use, unspecified with intoxication, uncomplicated (2) Hypomagnesemia SNOMED Code(s): 677693075 Code(s): E83.42 - HYPOMAGNESEMIA Status: Acute Current Visit: Yes (3) Alcohol abuse with physiological dependence SNOMED Code(s): 53503843, 46344846 Code(s): F10.20 - ALCOHOL DEPENDENCE, UNCOMPLICATED Status: Acute Current Visit: No (4) Ataxia SNOMED Code(s): 04301549 Code(s): R27.0 - ATAXIA, UNSPECIFIED Status: Acute Current Visit: No (5) Elevated liver enzymes SNOMED Code(s): 525264683 Code(s): R74.8 - ABNORMAL LEVELS OF OTHER SERUM ENZYMES Status: Acute Current Visit: No (6) Hypokalemia SNOMED Code(s): 47953005 Code(s): E87.6 - HYPOKALEMIA Status: Acute Current Visit: No (7) Hypophosphatemia SNOMED Code(s): 3103582 Code(s): E83.39 - OTHER DISORDERS OF PHOSPHORUS METABOLISM Status: Acute Current Visit: No (8) Alcohol use SNOMED Code(s): 772297 Code(s): Z72.89 - OTHER PROBLEMS RELATED TO LIFESTYLE Status: Chronic Priority: High Current Visit: No (9) Tobacco use SNOMED Code(s): 914593308 Code(s): Z72.0 - TOBACCO USE Status: Chronic Priority: High Current Visit: No (10) Thrombocytopenia SNOMED Code(s): 831578658 Code(s): D69.6 - THROMBOCYTOPENIA, UNSPECIFIED Status: Chronic Priority: High Current Visit: No (11) COVID-19 SNOMED Code(s): 459391458 Code(s): U07.1 - COVID-19 Status: Acute Current Visit: Yes (12) Protein malnutrition SNOMED Code(s): 933492345 Code(s): E46 - UNSPECIFIED PROTEIN-CALORIE MALNUTRITION Status: Chronic Current Visit: Yes (13) Decubitus ulcer of coccygeal region, stage 2 SNOMED Code(s): 909042859 Code(s): L89.152 - PRESSURE ULCER OF SACRAL REGION, STAGE 2 Status: Chronic Current Visit: Yes - My Orders Last 24 Hours: My Active Orders 06/28/20 07:44 Phosphorus #1 [Neutra-Phos] 250 mg PO QID 06/28/20 08:00 Potassium Chloride [Klor-Con M20] 40 meq PO BIDMEALS 06/28/20 08:38 Patient Status [ADT] Stat 06/28/20 09:11 Consult to Wound Care Services [CONS] Routine 06/28/20 09:30 Thiamine [Vitamin B-1] 500 mg Sodium Chloride 0.9% [Normal Saline] 250 ml IV Q8H 06/28/20 09:49 Consult to Track Worker [CONS] Routine 06/29/20 08:01 Magnesium Sulfate 2 GM ONETIME Magnesium Sulfate/Water [Magnesium Sulfate in Water 2 GM/50 ML] 2 gm in 50 ml IV ONETIME 06/30/20 05:11 CBC WITH AUTO DIFF [HEME] AM COMPREHENSIVE METABOLIC PN,CMP [CHEM] AM MAGNESIUM [CHEM] AM PHOSPHORUS [CHEM] AM 07/01/20 05:11 CBC WITH AUTO DIFF [HEME] AM COMPREHENSIVE METABOLIC PN,CMP [CHEM] AM MAGNESIUM [CHEM] AM PHOSPHORUS [CHEM] AM 07/02/20 05:11 CBC WITH AUTO DIFF [HEME] AM COMPREHENSIVE METABOLIC PN,CMP [CHEM] AM MAGNESIUM [CHEM] AM PHOSPHORUS [CHEM] AM 07/03/20 05:11 CBC WITH AUTO DIFF [HEME] AM COMPREHENSIVE METABOLIC PN,CMP [CHEM] AM MAGNESIUM [CHEM] AM PHOSPHORUS [CHEM] AM - Plan Plan:: 65 yo male admitted for ETOH abuse and ataxia 1. ETOH abuse/withdrawal/Wernicke's -Continue CIWAA protocol with Ativan as needed -Continue folic acid -Ataxia continues and nystagmus is noted today. Will start high-dose thiamine 500 mg 3 times daily for 2 days then transition to 250 mg daily for 5 days. -Consult PT for ataxia -Valium 5 mg p.o. twice daily 2. Hypokalemia/hypomagnesemia/hypophosphatemia -Replace potassium p.o. today 40 p.o. and IV and magnesium IV 4 g -Phosphorus 4 times daily -Recheck lab work in a.m. 3. Transaminitis and thrombocytopenia -Stable -Likely secondary to alcohol abuse -Continue to monitor daily 4. COVID-19 -Currently asymptomatic we will continue to monitor 5. Coccygeal decubitus -Likely secondary to inactivity and protein malnutrition along with chronic alcohol abuse -Dressing intact no signs of infection -Consult wound care to evaluate VTE prophylaxis: SCDs due to thrombocytopenia CODE STATUS: Full code Dispo: We will make inpatient today as he needs high-dose thiamine for the next few days IV.
[2020-06-29] MEDS ORDERED: Magnesium Sulfate/Water 2 GM/50 ML BAG IV ONE (08:30)
[2020-06-29] MEDS: Potassium Chloride 20 MEQ Tab.ER PO SCH (08:31)
[2020-06-29] MEDS: Folic Acid 50 MG/10 ML MDV SUBCUT SCH (08:32)
[2020-06-29] MEDS: Diazepam 5 MG Tab PO SCH (08:32)
--- NOTE | 2020-06-29 11:32 | PCM.DCSUM1 ---
Discharge Summary - Hospital Course Brief History: This 65-year-old male with past medical history of Wernicke's encephalopathy, chronic alcohol abuse and GI bleed presented to the ER last night with concerns of weakness and inability to ambulate. He reports that the last 3 days he has been feeling more weak and has not been able to ambulate as well within his home. He reports a friend came to help him they were able unable to get him up from the chair. He reports he has been drinking hard alcohol from the time he wakes up until he passes out in the evening and not eating very much food. He was previously admitted the end of May for similar symptoms along with C. difficile diarrhea. He was discharged home with vancomycin and he reports he did not finish his treatment but reports diarrhea has stopped. He does report having a black stool a couple days ago. He denies any chest pain shortness of breath fevers chills. He denies any myalgias. He reports he has generalized weakness and inability to ambulate safely by himself. He reports he did have a fall at home a few days ago but did not hit his head. In the ER white count 6.21 hemoglobin 13.8 platelets 57,000 which is near baseline. BMP normal with the exception of hypoglycemia noted at 60 he was initially tested and noted to be 43 he was given orange juice and food in the ER along with D50 1 IV access was established. Magnesium 1.5 bilirubin 1.6 AST 181 ALT 40 alk phos 115. Alcohol level 373 and he was Covid positive. Previous a dmission he was noted to be Covid negative. Chest x-ray negative for any acute cardiopulmonary process. EKG sinus rhythm with no ST changes. He was treated with magnesium 1 L MVI with folic acid and thiamine and Protonix in the ER. He was admitted observation for generalized weakness and alcohol abuse. Diagnosis: Stroke: No - Discharge Data Discharge Date: 06/29/20 Discharge Disposition: Home, Self-Care 01 Condition: Fair - Referral to Home Health Primary Care Physician: PCP None - Discharge Diagnosis/Problem(s) (1) Alcohol intoxication SNOMED Code(s): 81479670 ICD Code: F10.929 - ALCOHOL USE, UNSPECIFIED WITH INTOXICATION, UNSPECIFIED Status: Acute Current Visit: Yes Qualifiers: Complication of substance-induced condition: uncomplicated Qualified Code(s): F10.920 - Alcohol use, unspecified with intoxication, uncomplicated (2) Hypomagnesemia SNOMED Code(s): 861545892 ICD Code: E83.42 - HYPOMAGNESEMIA Status: Acute Current Visit: Yes (3) Alcohol abuse with physiological dependence SNOMED Code(s): 71180786, 83279863 ICD Code: F10.20 - ALCOHOL DEPENDENCE, UNCOMPLICATED Status: Acute Current Visit: No (4) Ataxia SNOMED Code(s): 57512360 ICD Code: R27.0 - ATAXIA, UNSPECIFIED Status: Acute Current Visit: No (5) Elevated liver enzymes SNOMED Code(s): 372597767 ICD Code: R74.8 - ABNORMAL LEVELS OF OTHER SERUM ENZYMES Status: Acute Current Visit: No (6) Hypokalemia SNOMED Code(s): 20264364 ICD Code: E87.6 - HYPOKALEMIA Status: Acute Current Visit: No (7) Hypophosphatemia SNOMED Code(s): 3385602 ICD Code: E83.39 - OTHER DISORDERS OF PHOSPHORUS METABOLISM Status: Acute Current Visit: No (8) Alcohol use SNOMED Code(s): 833415 ICD Code: Z72.89 - OTHER PROBLEMS RELATED TO LIFESTYLE Status: Chronic Priority: High Current Visit: No (9) Tobacco use SNOMED Code(s): 247575384 ICD Code: Z72.0 - TOBACCO USE Status: Chronic Priority: High Current Visit: No (10) Thrombocytopenia SNOMED Code(s): 933231402 ICD Code: D69.6 - THROMBOCYTOPENIA, UNSPECIFIED Status: Chronic Priority: High Current Visit: No (11) COVID-19 SNOMED Code(s): 965695247 ICD Code: U07.1 - COVID-19 Status: Acute Current Visit: Yes (12) Protein malnutrition SNOMED Code(s): 192020973 ICD Code: E46 - UNSPECIFIED PROTEIN-CALORIE MALNUTRITION Status: Chronic Current Visit: Yes (13) Decubitus ulcer of coccygeal region, stage 2 SNOMED Code(s): 014891121 ICD Code: L89.152 - PRESSURE ULCER OF SACRAL REGION, STAGE 2 Status: Chronic Current Visit: Yes - Patient Summary/Data Consults: Consultations 06/27/20 09:13 PT Evaluation and Treatment [CONS] Routine 06/28/20 09:11 Consult to Wound Care Services [CONS] Routine 06/28/20 09:49 Consult to Photo Manager [CONS] Routine Hospital Course: Admission diagnoses: Ataxia Alcohol intoxication COVID-19 Discharge diagnoses; Ataxia concern for Wernicke's Hypokalemia resolved Hypomagnesemia Hypophosphatemia COVID-19 Other PMH: Alcohol abuse Ataxia Medical noncompliance Thrombocytopenia secondary to alcohol abuse Po was admitted secondary ataxia and inability to walk at home. He reported he had not been eating or drinking much and had been drinking significant amounts of alcohol at home. He was treated with scheduled Valium 5 mg twice daily and Ativan intermittently for alcohol withdrawal per CIWAA scores. He was also treated with high-dose thiamine as he had previously been treated for Wernicke's encephalopathy and ataxia. Thrombocytopenia has improved to 57,000 today. During his stay he had significant hypokalemia hypomagnesia and hypophosphatemia, which were treated appropriately. He was also noted to have COVID-19 positive swab on admission. He denies any significant symptoms beyond weakness. He is to quarantine for continued 14 days from positive test. He is to use a mask at all times if he needs to go in public which he should refrain from doing. Limit visitation at his house by friends and if needed they must be wearing a mask. He verbalized understanding. Today he is very eager to be home as he states he is getting worse here. PT did see him and feel he is at baseline with ambulation he has baseline ataxia but is steady on his feet and has walker at home. He is not willing to stay for further thiamine treatment for ataxia. He was encouraged to quit drinking though seems very unmotivated to do this at this time. He is to follow-up with PCP in 1 to 2 weeks. Return to the ER if concerns should arise. - Patient Instructions Diet: Regular Diet as Tolerated (high calorie high protein) Activity: No Strenuous Activities, Rest and Relax Today Activity, Other: use walker with walking Driving: Do Not Drive Notify Provider of: Fever, Increased Pain, Swelling and Redness, Drainage, Nausea and/or Vomiting - Discharge Plan *PRESCRIPTION DRUG MONITORING PROGRAM REVIEWED*: Not Applicable *COPY OF PRESCRIPTION DRUG MONITORING REPORT IN PATIENT PATRICK: Not Applicable Prescriptions/Med Rec: Magnesium Oxide 400 mg PO DAILY #15 tablet Home Medications: Home Meds Magnesium Oxide 400 mg PO DAILY #15 tablet 06/29/20 [Rx] Oxygen Therapy Mode: Room Air Patient Handouts: Alcohol Use Disorder, COVID-19, Binge-Drinking Information, Adult, Alcohol Abuse and Nutrition, Magnesium Hydroxide chewable tablets, Folic Acid, Vitamin B9 tablets Referrals: Della Mccabe MD [Resident] - 07/05/20 3:30 pm - Discharge Summary/Plan Comment DC Time >30 min.: No - Patient Data Vitals - Most Recent: Last Vital Signs Temp 99.1 F 06/29/20 11:29 Pulse 88 06/29/20 11:29 Resp 18 06/29/20 11:29 BP 132/92 H 06/29/20 11:29 Pulse Ox 98 06/29/20 11:29 Weight - Most Recent: 63.367 kg I&O - Last 24 hours: Intake & Output 06/28/20 06/29/20 06/29/20 22:59 06:59 14:59 Intake Total 1155 550 Output Total 1400 800 Balance -245 -250 Lab Results - Last 24 hrs: Laboratory Results - last 24 hr 06/28/20 06/29/20 06/29/20 Range/Units 11:44 06:21 06:21 WBC 6.36 (4.0-11.0) K/uL RBC 4.60 (4.50-5.90) M/uL Hgb 15.2 (13.0-17.0) g/dL Hct 42.8 (38.0-50.0) % MCV 93.0 (80.0-98.0) fL MCH 33.0 H (27.0-32.0) pg MCHC 35.5 (31.0-37.0) g/dL RDW Std Deviation 55.6 (28.0-62.0) fl RDW Coeff of Stephane 16 H (11.0-15.0) % Plt Count 57 L (150-400) K/uL Neut % (Auto) 59.2 (48.0-80.0) % Lymph % (Auto) 28.1 (16.0-40.0) % [place] % (Auto) 11.2 (0.0-15.0) % Eos % (Auto) 1.3 (0.0-7.0) % Baso % (Auto) 0.2 (0.0-1.5) % Neut # (Auto) 3.8 (1.4-5.7) K/uL Lymph # (Auto) 1.8 (0.6-2.4) K/uL [place] # (Auto) 0.7 (0.0-0.8) K/uL Eos # (Auto) 0.1 (0.0-0.7) K/uL Baso # (Auto) 0.0 (0.0-0.1) K/uL Nucleated RBC % 0.0 /100WBC Nucleated RBCs # 0 K/uL Sodium 136 (136-148) mmol/L Potassium 3.8 (3.5-5.1) mmol/L Chloride 99 (98-107) mmol/L Carbon Dioxide 26.3 (21.0-32.0) mmol/L BUN 2 L (7.0-18.0) mg/dL Creatinine 0.7 L (0.8-1.3) mg/dL Est Cr Clr Drug Dosing 93.04 mL/min Estimated GFR (MDRD) > 60.0 ml/min Glucose 106 (74-106) mg/dL POC Glucose 160 H (60-110) mg/dL Calcium 9.2 (8.5-10.1) mg/dL Phosphorus 2.2 L (2.6-4.7) mg/dL Magnesium 1.6 L (1.8-2.4) mg/dL Total Bilirubin 1.8 H (0.2-1.0) mg/dL AST 110 H (15-37) IU/L ALT 29 (14-63) IU/L Alkaline Phosphatase 104 (46-116) U/L Total Protein 8.1 (6.4-8.2) g/dL Albumin 3.1 L (3.4-5.0) g/dL Globulin 5.0 H (2.6-4.0) g/dL Albumin/Globulin Ratio 0.6 L (0.9-1.6) Med Orders - Current: Current Medications Albuterol/Ipratropium (Combivent Respimat) 0 gm INH Q4H PRN PRN Reason: Dyspnea Folic Acid (Folic Acid) 1 mg SUBCUT DAILY MARCEL Last Admin: 06/29/20 08:32 Dose: 1 mg Documented by: Pantoprazole Sodium 40 mg/ (Sodium Chloride) 10 mls @ 300 mls/hr IV Q12H [facility] Last Admin: 06/29/20 05:00 Dose: 300 mls/hr Documented by: Thiamine HCl 500 mg/ Sodium (Chloride) 255 mls @ 510 mls/hr IV Q8H [facility] Last Admin: 06/29/20 09:42 Dose: 510 mls/hr Documented by: Lorazepam (Ativan) 0 mg IVPUSH Q4H PRN; Protocol PRN Reason: CIWAA Last Admin: 06/27/20 17:03 Dose: 1 mg Documented by: Ondansetron HCl (Zofran) 4 mg IVPUSH Q4H PRN PRN Reason: Nausea/Vomiting Last Admin: 06/27/20 12:29 Dose: 4 mg Documented by: Potassium Chloride (Klor-Con M20) 40 meq PO BIDMEALS [facility] Last Admin: 06/29/20 08:31 Dose: 40 meq Documented by: Sodium Phosphate (Neutra-Phos) 250 mg PO QID [facility] Last Admin: 06/29/20 11:31 Dose: 250 mg Documented by: Discontinued Medications Bacitracin (Bacitracin Oint 1 Gm) 2 dose TOP ONETIME ONE Stop: 06/26/20 22:57 Last Admin: 06/26/20 23:01 Dose: Not Given Documented by: Dextrose/Water (Dextrose 50% In Water) 50 ml IVPUSH ONETIME ONE Stop: 06/26/20 21:01 Last Admin: 06/26/20 21:04 Dose: 50 ml Documented by: Dextrose/Water (Dextrose 50% In Water) Confirm Administered Dose 50 ml .ROUTE .STK-MED ONE Stop: 06/26/20 21:05 Last Admin: 06/26/20 21:09 Dose: Not Given Documented by: Diazepam (Valium.) 5 mg PO BID [facility] Last Admin: 06/29/20 08:32 Dose: 5 mg Documented by: Folic Acid (Folic Acid) 1 mg SUBCUT DAILY [facility] Last Admin: 06/27/20 03:01 Dose: 1 mg Documented by: Multivitamins/Minerals 10 ml/Thiamine HCl 100 mg/ Folic Acid 1 mg/ Sodium Chloride 1,011.2 mls @ 999 mls/hr IV ONETIME ONE Stop: 06/26/20 22:00 Last Admin: 06/26/20 21:25 Dose: 999 mls/hr Documented by: Magnesium Sulfate (Magnesium Sulfate In Water 2 Gm/50 Ml) 2 gm in 50 mls @ 50 mls/hr IV ONETIME ONE Stop: 06/26/20 23:59 Last Admin: 06/26/20 23:16 Dose: 50 mls/hr Documented by: Dextrose/Sodium Chloride (Dextrose 5%-Normal Saline) 1,000 mls @ 125 mls/hr IV ASDIRECTED [facility] Last Admin: 06/27/20 00:18 Dose: 125 mls/hr Documented by: Pantoprazole Sodium 40 mg/ (Sodium Chloride) 10 mls @ 300 mls/hr IV Q24H [facility] Lactated Ringer's (Ringers, Lactated) 1,000 mls @ 100 mls/hr IV ASDIRECTED [facility] Last Admin: 06/28/20 04:01 Dose: 100 mls/hr Documented by: Thiamine HCl 100 mg/ Sodium (Chloride) 101 mls @ 202 mls/hr IV DAILY [facility] Last Admin: 06/27/20 03:03 Dose: 202 mls/hr Documented by: Pantoprazole Sodium 40 mg/ (Sodium Chloride) 10 mls @ 300 mls/hr IV ONETIME ONE Stop: 06/27/20 02:31 Last Admin: 06/27/20 03:00 Dose: 300 mls/hr Documented by: Magnesium Sulfate (Magnesium Sulfate In Water 2 Gm/50 Ml) 2 gm in 50 mls @ 50 mls/hr IV ONETIME ONE Stop: 06/27/20 11:07 Last Admin: 06/27/20 11:04 Dose: 50 mls/hr Documented by: Magnesium Sulfate (Magnesium Sulfate In Water 4 Gm/100 Ml) 4 gm in 100 mls @ 50 mls/hr IV ONETIME ONE Stop: 06/28/20 09:59 Last Admin: 06/28/20 08:13 Dose: 50 mls/hr Documented by: Potassium Chloride/Sodium Chloride (Normal Saline With 40 Meq Kcl) 1,000 mls @ 125 mls/hr IV ONETIME ONE Stop: 06/28/20 15:59 Last Admin: 06/28/20 08:19 Dose: 125 mls/hr Documented by: Magnesium Sulfate (Magnesium Sulfate In Water 2 Gm/50 Ml) 2 gm in 50 mls @ 50 mls/hr IV ONETIME ONE Stop: 06/29/20 09:29 Last Admin: 06/29/20 08:32 Dose: 50 mls/hr Documented by: Ibuprofen (Motrin) 200 mg PO Q6H PRN PRN Reason: Pain Lorazepam (Ativan) 1 mg IVPUSH ONETIME PRN PRN Reason: Agitation Magnesium Sulfate (Magnesium Sulfate 50%) 2 gm IV ONETIME STA Stop: 06/26/20 22:51 Potassium Chloride (Klor-Con M20) 40 meq PO ONETIME ONE Stop: 06/27/20 10:09 Last Admin: 06/27/20 11:04 Dose: 40 meq Documented by: - Exam General: Reports: Alert, Oriented. Denies: Cooperative (Very disgusted with having to possibly stay another night. Demanding to be discharged home.) Lungs: Reports: Clear to Auscultation, Normal Respiratory Effort Cardiovascular: Reports: Regular Rate, Regular Rhythm GI/Abdominal Exam: Normal Bowel Sounds, Soft, Non-Tender Back Exam: Reports: Normal Inspection, Full Range of Motion Skin: Reports: Dry (Extremely dry peeling skin) Neurological: Reports: No New Focal Deficit Psy/Mental Status: Reports: Alert, Normal Affect, Withdrawal Symptoms (Mild tremors noted.)
== END 2020-06-29 13:10 | disposition home or self-care (01) | DRG 896 ==
LOC: MW.ED 20:54 → MW.MS 06-27 00:06 → OBSVTOIN 06-27 08:38
PROVIDERS: ADMIT Student in an Organized Health Care Education/Training Program; ATTEND Student in an Organized Health Care Education/Training Program
DX: F10.239 Alcohol dependence with withdrawal, unspecified (principal); U07.1 COVID-19; E46 Unspecified protein-calorie malnutrition; Z87.19 Personal history of other diseases of the digestive system; E51.2 Wernicke's encephalopathy; E87.6 Hypokalemia; E83.42 Hypomagnesemia; D69.6 Thrombocytopenia, unspecified; F10.229 Alcohol dependence with intoxication, unspecified; R27.0 Ataxia, unspecified; R74.8 Abnormal levels of other serum enzymes; E83.39 Other disorders of phosphorus metabolism; L89.152 Pressure ulcer of sacral region, stage 2; Y90.8 Blood alcohol level of 240 mg/100 ml or more; F17.200 Nicotine dependence, unspecified, uncomplicated; E78.00 Pure hypercholesterolemia, unspecified; K70.10 Alcoholic hepatitis without ascites; E16.2 Hypoglycemia, unspecified; I10 Essential (primary) hypertension
CPT/HCPCS: 36415 ×2; 71045; 80048; 80053; 80179; 82550; 82962 ×2; 83735 ×2; 84100; 85025 ×2; 93005 ×2; 96365; 96366 ×2; 96367; 96372; 96375 ×2; 96376; 99285; C9113; G0378 ×2; J3411 ×2; J3475; J7030; J7042; J7120; U0002; 93010; 97162-GP; 97530-GP; 97802; 99284; A9270-GY; J2060; J2405; J3480; J7050

== ENCOUNTER 2020-07-30 02:18 | Emergency (ER) | payer MEDICARE, MEDICAID ==
--- NOTE | 2020-07-30 02:56 | EDM.PDOC ---
<Sukhdev Bruce - Last Filed: 07/30/20 07:14> ED HPI GENERAL MEDICAL PROBLEM - General Chief Complaint: Lower Extremity Injury/Pain Stated Complaint: KNEE PAIN Time Seen by Provider: 07/30/20 02:33 - History of Present Illness INITIAL COMMENTS - FREE TEXT/NARRATIVE: History of present illness: [] The patient has an acute onset of pain in the left lower extremity. He says the whole lower extremity hurts. He is unable to walk because of it. He is unable to fully extend his left knee actively. He has no fever and chills and no systemic signs of illness. Review of systems: As per history of present illness and below otherwise all systems reviewed and negative. Past medical history: As per history of present illness and as reviewed below otherwise noncontributory. Surgical history: As per history of present illness and as reviewed below otherwise noncontributory. Social history: No reported history of drug or alcohol abuse. Family history: As per history of present illness and as reviewed below otherwise noncontributory. Physical exam: Constitutional - well developed, well-nourished and in no acute distress HEENT - normocephalic, no evidence of trauma - external nose and mouth normal - no mass in neck and no JVD - mucosae moist EYES - full EOM, PERRL, no icterus - no evidence of inflammation, injection, or drainage Respiratory - no respiratory distress, equal bilateral expansion, lungs clear to auscultation and no abnormal lung sounds Cardiovascular - Regular Rhythm with S1 and S2 appreciated and no murmur, gallop or rub. GI - abdomen soft without distension or organomegaly - normal bowel sounds - no guard or rebound Musculoskeletal tender left knee and tender left posterior calf. Mild swelling around the left knee. Pain on extension but able to go through the full range of motion passively with significant pain. No gross deformity of long bones or joints - no tenderness, swelling or edema Neurologic - Alert and oriented times four - CN II-XII grossly intact - motor sensory and coordination symmetrically normal Psychiatric - appropriate mood and affect with normal thought content Hematologic - No petechiae or purpura - mucosa appropriate color and sclera not pale - normal nail bed color and refill Integument - no rash or evidence of trauma - normal turgor Diagnostics: [] Therapeutics: [] Impression: [] Plan: [] Definitive disposition and diagnosis as appropriate pending reevaluation and review of above. left knee Pain Score (Numeric/FACES): 8 - Related Data Allergies Allergy/AdvReac Type Severity Reaction Status Date / Time No Known Allergies Allergy Verified 07/30/20 02:24 Home Meds: Home Meds Magnesium Oxide 400 mg PO DAILY #15 tablet 06/29/20 [Rx] Past Medical History - Past Health History Medical/Surgical History: Denies Medical/Surgical History HEENT History: Reports: None Cardiovascular History: Reports: High Cholesterol, Hypertension Respiratory History: Reports: None Gastrointestinal History: Reports: GI Bleed Genitourinary History: Reports: None Musculoskeletal History: Reports: None Neurological History: Reports: None Psychiatric History: Reports: None Endocrine/Metabolic History: Reports: None 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 Hematologic History: Reports: None Immunologic History: Reports: None Oncologic (Cancer) History: Reports: None Dermatologic History: Reports: None - Infectious Disease History Infectious Disease History: Reports: None - Past Surgical History Head Surgeries/Procedures: Reports: None HEENT Surgical History: Reports: None Cardiovascular Surgical History: Reports: None Respiratory Surgical History: Reports: None GI Surgical History: Reports: EGD Male Surgical History: Reports: None Endocrine Surgical History: Reports: None Neurological Surgical History: Reports: None Musculoskeletal Surgical History: Reports: None Oncologic Surgical History: Reports: None Dermatological Surgical History: Reports: None Social & Family History - Family History Family Medical History: No Pertinent Family History - Caffeine Use Caffeine Use: Reports: None Caffeine Use Comment: once in a while use of coffee. - Recreational Drug Use Recreational Drug Use: No Review of Systems - Review of Systems Review Of Systems: Comprehensive ROS is negative, except as noted in HPI. ED EXAM, GENERAL - Physical Exam Exam: See Below Free Text/Narrative:: My physical exam is in the HPI #1 Interpretation EKG Interpretation Comments: EKG done at 5:33 AM shows a sinus rhythm with a heart rate [address] and T wave changes throughout. Compared to 06/26/2020 it was too much artifact and baseline wander to make a good comparison compared to 04/15/2021 there is no change impression no new ischemia Course - Vital Signs Text/Narrative:: X-ray shows no fracture and ultrasound shows no clot. She was unable to ambulate. However his alcohol was 359. Turned over to my partner to see how he does after he is sober. Departure - Departure Disposition: Home, Self-Care 01 Condition: Good Clinical Impression: Left knee pain, Alcohol use Alcohol intoxication Qualifiers: Complication of substance-induced condition: uncomplicated Qualified Code(s): F10.920 - Alcohol use, unspecified with intoxication, uncomplicated - Discharge Information Instructions: Acute Knee Pain, Adult, Alcohol Intoxication Referrals: PCP,None [Primary Care Provider] - Forms: ED Department Discharge Additional Instructions: Naproxen or ibuProfen for pain. These are [id number]. [facility] Professional Building [address] [facility], [address] [place] [address] [facility] [address], [place] [address] [address] The following information is given to patients seen in the emergency department who are being discharged to home. This information is to outline your options for follow-up care. We provide all patients seen in our emergency department with a follow-up referral. The need for follow-up, as well as the timing and circumstances, are variable depending upon the specifics of your emergency department visit. If you don't have a primary care physician on staff, we will provide you with a referral. We always advise you to contact your personal physician following an emergency department visit to inform them of the circumstance of the visit and for follow-up with them and/or the need for any referrals to a consulting specialist. The emergency department will also refer you to a specialist when appropriate. This referral assures that you have the opportunity for follow-up care with a specialist. All of these measure are taken in an effort to provide you with optimal care, which includes your follow-up. Under all circumstances we always encourage you to contact your private physician who remains a resource for coordinating your care. When calling for follow-up care, please make the office aware that this follow-up is from your recent emergency room visit. If for any reason you are refused follow-up, please contact the [facility] Emergency Department at and asked to speak to the emergency department charge nurse. Sepsis Event Note (ED) - Evaluation Sepsis Screening Result: No Definite Risk <Alexys Corey - Last Filed: 07/30/20 08:45> Course - Vital Signs Last Recorded V/S: Last Vital Signs Temp 97 F 07/30/20 02:20 Pulse 99 07/30/20 06:50 Resp 16 07/30/20 06:50 BP 127/78 07/30/20 06:50 Pulse Ox 93 L 07/30/20 06:50 - Orders/Labs/Meds Orders: Active Orders 24 hr Category Date Time Status EKG Documentation Completion [RC] AM Care 07/30/20 05:09 Active UA W/LEO RFLX IF INDICATED [URIN] Stat Lab 07/30/20 05:10 Ordered MVI, Adult with Vitamin K [Infuvite Adult] 10 ml Med 07/30/20 05:11 Active Thiamine [Vitamin B-1] 100 mg Folic Acid 1 mg Sodium Chloride 0.9% [Normal Saline] 1,000 ml IV ONETIME Sodium Chloride 0.9% [Saline Flush] Med 07/30/20 05:09 Active 10 ml FLUSH ASDIRECTED PRN Sodium Chloride 0.9% [Saline Flush] Med 07/30/20 05:09 Active 2.5 ml FLUSH ASDIRECTED PRN Saline Lock Insert [OM.PC] Stat Oth 07/30/20 05:10 Ordered Medication Orders Multivitamins/Minerals 10 ml/Thiamine HCl 100 mg/ Folic Acid 1 mg/ Sodium Chloride 1,011.2 mls @ 150 mls/hr IV ONETIME ONE Stop: 07/30/20 11:55 Last Infusion: 07/30/20 07:08 Dose: 999 mls/hr Documented by: Admin: 07/30/20 05:40 Dose: 150 mls/hr Documented by: TERRENCE Sodium Chloride (Sodium Chloride 0.9% 10 Ml Syringe) 10 ml FLUSH ASDIRECTED PRN PRN Reason: Keep Vein Open Sodium Chloride (Sodium Chloride 0.9% 2.5 Ml Syringe) 2.5 ml FLUSH ASDIRECTED PRN PRN Reason: Keep Vein Open Labs: Laboratory Tests 07/30/20 07/30/20 07/30/20 Range/Units 05:40 05:40 05:40 WBC 6.43 (4.0-11.0) K/uL RBC 4.22 L (4.50-5.90) M/uL Hgb 13.9 (13.0-17.0) g/dL Hct 39.5 (38.0-50.0) % MCV 93.6 (80.0-98.0) fL MCH 32.9 H (27.0-32.0) pg MCHC 35.2 (31.0-37.0) g/dL RDW Std Deviation 55.0 (28.0-62.0) fl RDW Coeff of Stephane 16 H (11.0-15.0) % Plt Count 62 L (150-400) K/uL MPV 10.80 (7.40-12.00) fL Neut % (Auto) 84.5 H (48.0-80.0) % Lymph % (Auto) 11.7 L (16.0-40.0) % Real % (Auto) 3.6 (0.0-15.0) % Eos % (Auto) 0.0 (0.0-7.0) % Baso % (Auto) 0.2 (0.0-1.5) % Neut # (Auto) 5.4 (1.4-5.7) K/uL Lymph # (Auto) 0.8 (0.6-2.4) K/uL Real # (Auto) 0.2 (0.0-0.8) K/uL Eos # (Auto) 0.0 (0.0-0.7) K/uL Baso # (Auto) 0.0 (0.0-0.1) K/uL Nucleated RBC % 0.0 /100WBC Nucleated RBCs # 0 K/uL INR 1.10 APTT 27.7 (18.6-31.3) SEC Sodium 143 (136-148) mmol/L Potassium 3.2 L (3.5-5.1) mmol/L Chloride 99 (98-107) mmol/L Carbon Dioxide 22.6 (21.0-32.0) mmol/L BUN 6 L (7.0-18.0) mg/dL Creatinine 0.8 (0.8-1.3) mg/dL Est Cr Clr Drug Dosing TNP Estimated GFR (MDRD) > 60.0 ml/min Glucose 74 (74-106) mg/dL Calcium 8.8 (8.5-10.1) mg/dL Magnesium 1.4 L (1.8-2.4) mg/dL Total Bilirubin 1.2 H (0.2-1.0) mg/dL AST 194 H (15-37) IU/L ALT 36 (14-63) IU/L Alkaline Phosphatase 148 H (46-116) U/L Troponin I (0.000-0.056) ng/mL Total Protein 8.5 H (6.4-8.2) g/dL Albumin 3.4 (3.4-5.0) g/dL Globulin 5.1 H (2.6-4.0) g/dL Albumin/Globulin Ratio 0.7 L (0.9-1.6) Ethyl Alcohol 359 mg/dL 07/30/20 Range/Units 05:40 WBC (4.0-11.0) K/uL RBC (4.50-5.90) M/uL Hgb (13.0-17.0) g/dL Hct (38.0-50.0) % MCV (80.0-98.0) fL MCH (27.0-32.0) pg MCHC (31.0-37.0) g/dL RDW Std Deviation (28.0-62.0) fl RDW Coeff of Stephane (11.0-15.0) % Plt Count (150-400) K/uL MPV (7.40-12.00) fL Neut % (Auto) (48.0-80.0) % Lymph % (Auto) (16.0-40.0) % Real % (Auto) (0.0-15.0) % Eos % (Auto) (0.0-7.0) % Baso % (Auto) (0.0-1.5) % Neut # (Auto) (1.4-5.7) K/uL Lymph # (Auto) (0.6-2.4) K/uL Real # (Auto) (0.0-0.8) K/uL Eos # (Auto) (0.0-0.7) K/uL Baso # (Auto) (0.0-0.1) K/uL Nucleated RBC % /100WBC Nucleated RBCs # K/uL INR APTT (18.6-31.3) SEC Sodium (136-148) mmol/L Potassium (3.5-5.1) mmol/L Chloride (98-107) mmol/L Carbon Dioxide (21.0-32.0) mmol/L BUN (7.0-18.0) mg/dL Creatinine (0.8-1.3) mg/dL Est Cr Clr Drug Dosing Estimated GFR (MDRD) ml/min Glucose (74-106) mg/dL Calcium (8.5-10.1) mg/dL Magnesium (1.8-2.4) mg/dL Total Bilirubin (0.2-1.0) mg/dL AST (15-37) IU/L ALT (14-63) IU/L Alkaline Phosphatase (46-116) U/L Troponin I < 0.050 (0.000-0.056) ng/mL Total Protein (6.4-8.2) g/dL Albumin (3.4-5.0) g/dL Globulin (2.6-4.0) g/dL Albumin/Globulin Ratio (0.9-1.6) Ethyl Alcohol mg/dL Meds: Medications Generic Name Dose Route Start Last Admin Trade Name Freq PRN Reason Stop Dose Admin Multivitamins/Minerals 10 ml/ 1,011.2 mls @ 150 mls/hr 07/30/20 05:11 07/30/20 07:08 Thiamine HCl 100 mg/ Folic IV 07/30/20 11:55 999 mls/hr Acid 1 mg/ Sodium Chloride ONETIME ONE Infusion Sodium Chloride 10 ml 07/30/20 05:09 Sodium Chloride 0.9% 10 Ml Syringe FLUSH ASDIRECTED PRN Keep Vein Open Sodium Chloride 2.5 ml 07/30/20 05:09 Sodium Chloride 0.9% 2.5 Ml Syringe FLUSH ASDIRECTED PRN Keep Vein Open Discontinued Medications Generic Name Dose Route Start Last Admin Trade Name Freq PRN Reason Stop Dose Admin Ketorolac Tromethamine 30 mg 07/30/20 03:54 07/30/20 04:40 Ketorolac 30 Mg/Ml Sdv IM 07/30/20 03:55 30 mg ONETIME ONE Administration - Re-Assessments/Exams Free Text/Narrative Re-Assessment/Exam: 07/30/20 08:44 Patient was signed out to me by previous provider. Patient had alcohol greater than 300. Patient is now clinically sober and ambulating. Patient does use a cane at baseline is able to ambulate with a slight limp without his cane. Patient says he feels safe to go home. Departure - Departure Time of Disposition: 08:45 Sepsis Event Note (ED) - Focused Exam Vital Signs: Vital Signs Temp Pulse Resp BP Pulse Ox 07/30/20 06:50 99 16 127/78 93 L 07/30/20 04:30 92 18 127/78 95 07/30/20 02:20 97 F 95 18 142/78 H 96
[2020-07-30] MEDS ORDERED: Ketorolac 30 MG/ML SDV IM ONE (03:54)
--- NOTE | 2020-07-30 04:11 | CR ---
INDICATION: Left knee pain. COMPARISON: None. TECHNIQUE: Two portable views of the left knee. FINDINGS: Normal mineralization and alignment. No acute fracture or dislocation. Mild medial compartment joint space narrowing. Early osteophyte formation of the patellofemoral compartment. No joint effusion. Scattered vascular calcifications. IMPRESSION: No acute osseous abnormality. Dictated by Jez Gray MD @ 07/30/2020 4:10:33 AM Dictated by: Jez Gray MD @ 07/30/2020 04:10:42 (Electronically Signed)
--- NOTE | 2020-07-30 04:16 | US ---
INDICATION: Left lower extremity pain and swelling. TECHNIQUE: Ultrasound venous duplex lower left extremity. Compression venous exam was performed using gold-scale, color Doppler, and spectral Doppler analysis. COMPARISON: None. FINDINGS: Sonographic imaging demonstrates the left common femoral, femoral, profunda, popliteal, posterior tibial and greater saphenous veins to be fully compressible with normal color Doppler blood flow. Normal response to augmentation and respiratory variation. Imaging of the right common femoral vein is normal. No soft tissue mass or fluid collection. IMPRESSION: There is no evidence of left lower extremity DVT. Dictated by Jez Gray MD @ 07/30/2020 4:13:58 AM Dictated by: Jez Gray MD @ 07/30/2020 04:14:06 (Electronically Signed)
[2020-07-30] MEDS ORDERED: Sodium Chloride 0.9% 10 ML Syringe FLUSH PRN (05:09)
[2020-07-30] MEDS ORDERED: Sodium Chloride 0.9% 2.5 ML Syringe FLUSH PRN (05:09)
[2020-07-30] MEDS ORDERED: MVI, Adult with Vitamin K 10 ML, Thiamine 100 MG, Folic Acid 1 MG in Sodium Chloride 0.... IV ONE ×4 (05:11)
[2020-07-30 06:09] LABS: BLOOD UREA NITROGEN,BUN 6 mg/dL (7.0-18.0); CARBON DIOXIDE,CO2 22.6 mmol/L (21.0-32.0); CHLORIDE,CL 99 mmol/L (98-107); GLUCOSE RANDOM 74 mg/dL (74-106); POTASSIUM,K 3.2 mmol/L (3.5-5.1); SODIUM,NA 143 mmol/L (136-148)
== END 2020-07-30 09:16 | disposition home or self-care (01) ==
LOC: MW.ED 02:18
DX: M25.562 Pain in left knee (principal); F10.120 Alcohol abuse with intoxication, uncomplicated; I10 Essential (primary) hypertension; Y90.8 Blood alcohol level of 240 mg/100 ml or more; Z79.899 Other long term (current) drug therapy
CPT/HCPCS: 36415; 73560; 80053; 80307; 83735; 84484; 85025; 85610; 85730; 93005; 93971; 96365; 96366; 96372; 99284; J1885; J3411; J7030

== ENCOUNTER 2020-08-04 15:22 | Inpatient (IN) | payer MEDICARE, MEDICAID ==
[2020-08-04] MEDS ORDERED: Sodium Chloride 0.9% 2.5 ML Syringe FLUSH PRN (15:42)
[2020-08-04] MEDS ORDERED: MVI, Adult with Vitamin K 10 ML, Thiamine 100 MG, Folic Acid 1 MG in Sodium Chloride 0.... IV ONE ×4 (15:42)
--- NOTE | 2020-08-04 15:49 | PCM.EKG ---
#1 Interpretation EKG Date: 08/04/20 Time: 15:45 Rhythm: NSR Rate (Beats/Min): 97 ST-T: Normal
[2020-08-04] MEDS: Sodium Chloride 0.9% 10 ML Syringe FLUSH PRN ×2 (16:03→16:05)
--- NOTE | 2020-08-04 16:48 | CR ---
INDICATION: weak TECHNIQUE: Chest 1 view. COMPARISON: 06/26/20 FINDINGS: Cardiovascular and mediastinum: Heart size and vasculature are normal in caliber and appearance. Mediastinum is within normal limits. Lungs and pleural space: Lungs are clear. No sign of infiltrate or mass. No sign of pleural effusion. No pneumothorax. Bones and soft tissues: No significant findings. IMPRESSION: Unremarkable chest. Dictated by: Kendall Swain MD @ 08/04/2020 16:47:00 (Electronically Signed)
--- NOTE | 2020-08-04 17:21 | PCM.SN.2 ---
- Free Text/Narrative Note: called for IV start. Multiple attempts by ER staff. Pt verbally consents to IV start. Aseptic technique x 4 attempts -2 Right hand and AC and 1 attempt Left wrist and 4th attempt successful 22 ga left hand. Saline locked and dressing applied. Secured with tape. RN notified.
[2020-08-04 18:31] LABS: BLOOD UREA NITROGEN,BUN 8 mg/dL (7.0-18.0); CHLORIDE,CL 91 mmol/L (98-107); GLUCOSE RANDOM 97 mg/dL (74-106); POTASSIUM,K 2.6 mmol/L (3.5-5.1); SODIUM,NA 131 mmol/L (136-148)
[2020-08-04] MEDS ORDERED: Magnesium Sulfate/Water 4 GM in Premix Bag 1 BAG IV ONE (18:40)
[2020-08-04] MEDS ORDERED: Potassium Chloride Riders 40 MEQ in Premix Bag 1 BAG IV ONE (18:40)
--- NOTE | 2020-08-04 18:53 | EDM.PDOC ---
ED HPI GENERAL MEDICAL PROBLEM - General Chief Complaint: General Stated Complaint: WEAKNESS Time Seen by Provider: 08/04/20 15:28 Source of Information: Reports: Patient History Limitations: Reports: No Limitations - History of Present Illness INITIAL COMMENTS - FREE TEXT/NARRATIVE: HISTORY AND PHYSICAL: History of present illness: Patient is a 65-year-old male who presents to the ED today with concern of generalized weakness making ambulation difficult. Patient states that his baseline, he usually uses a cane to walk as he is unsteady per his baseline. Patient states after his last discharge from the hospital, he has noticed slowly getting weaker and having a harder time with walking. Patient states that he has been unable to walk for the past 4 to 5 days due to feeling weak and tired. Patient states that he was at the clinic today and was instructed to come to the emergency room due to his weakness. Patient states that he is a chronic alcohol user but has not used any alcohol since his last ED visit. Patient states that he does not think he needs to come to the emergency room but only came because the clinic told him to. Patient denies any trauma or injury or any associated pain. Denies any loss or retention of bowel bladder function or saddle anesthesia. Patient denies fever, chills, chest pain, shortness of breath, or cough. Denies headache, neck stiff ness, change in vision, syncope, or near syncope. Denies nausea, vomiting, abdominal pain, diarrhea, constipation, or dysuria. Has not noted any blood in urine or stool. Patient has been eating and drinking appropriately. Review of systems: As per history of present illness and below otherwise all systems reviewed and negative. Past medical history: As per history of present illness and as reviewed below otherwise noncontributory. Surgical history: As per history of present illness and as reviewed below otherwise noncontributory. Social history: See social history for further information Family history: As per history of present illness and as reviewed below otherwise noncontributory. Physical exam: General: Patient is alert, oriented, and in no acute distress. Patient laying comfortably on exam table. Vitals stable and reviewed by me. HEENT: Atraumatic, normocephalic, pupils equal and reactive bilaterally, negative for conjunctival pallor or scleral icterus, mucous membranes moist, TMs normal bilaterally, throat clear, neck supple, nontender, trachea midline. No drooling or trismus noted. No meningeal signs. No hot potato voice noted. Lungs: Clear to auscultation, breath sounds equal bilaterally, chest nontender. Heart: S1S2, regular rate and rhythm without overt murmur Abdomen: Soft, nondistended, nontender. Negative for masses or hepatosplenomegaly. Negative for costovertebral tenderness. Pelvis: Stable nontender. Genitourinary: Deferred. Rectal: Deferred. Skin: Intact, warm, dry. No lesions or rashes noted. Extremities: Atraumatic, negative for cords or calf pain. Neurovascular unremarkable. Neuro: Awake, alert, oriented. Cranial nerves II through XII unremarkable. Cerebellum unremarkable. Patient has intact sensation to light and deep touch of bilateral upper and lower extremities. Dorsalis pedis and posterior tibial pulses are grossly intact bilaterally with capillary refill less than 2 seconds. Radial pulses grossly intact bilaterally with capillary refill less than 2 seconds. Patient does have weakness with straight leg raise but is able to engage all muscle groups with decreased strength. He is able to move all joints but weak. Notes: Patient does require to assist to go from wheelchair to the bed and he is unable to ambulate independently. He states that he feels weak and is able to lift his legs up, but he is slow with doing this. Patient has intact sensation to light and deep touch of bilateral upper and lower extremities without deficit and is neurovascularly intact. Patient is hypokalemic at 2.6 which is new from his prior lab work. We will give patient potassium and magnesium. I did call and speak to the hospitalist on-call, Dr. Keita, and thoroughly discussed patient's case. Will admit to observation telemetry. Voices understanding and is agreeable to plan of care. Denies any further questions or concerns at this time. Diagnostics: EKG, CBC, CMP, UA, CXR, Trop, Magnesium, Ethanol Therapeutics: Banana bag, Magnesium, Potassium Impression: Symptomatic hypokalemia Weakness Plan: Admit to observation on telemetry to Dr. Keita, hospitalist Definitive disposition and diagnosis as appropriate pending reevaluation and review of above. - Related Data Allergies Allergy/AdvReac Type Severity Reaction Status Date / Time No Known Allergies Allergy Verified 08/04/20 15:34 Home Meds: Home Meds Folic Acid 1 mg PO DAILY 08/04/20 [History] Sod Phos Di, [place]/K Phos [place] [K-Phos Neutral Tablet] 250 mg PO DAILY 08/04/20 [History] Thiamine HCl [B-1] 100 mg PO DAILY 08/04/20 [History] Past Medical History - Past Health History Medical/Surgical History: Denies Medical/Surgical History HEENT History: Reports: None Cardiovascular History: Reports: High Cholesterol, Hypertension Respiratory History: Reports: None Gastrointestinal History: Reports: GI Bleed Genitourinary History: Reports: None Musculoskeletal History: Reports: None Neurological History: Reports: None Psychiatric History: Reports: None Endocrine/Metabolic History: Reports: None Insulin Pump Model and Clinical Data Abstractor: None Hematologic History: Reports: None Immunologic History: Reports: None Oncologic (Cancer) History: Reports: None Dermatologic History: Reports: None - Infectious Disease History Infectious Disease History: Reports: None - Past Surgical History Head Surgeries/Procedures: Reports: None HEENT Surgical History: Reports: None Cardiovascular Surgical History: Reports: None Respiratory Surgical History: Reports: None GI Surgical History: Reports: EGD Male Surgical History: Reports: None Endocrine Surgical History: Reports: None Neurological Surgical History: Reports: None Musculoskeletal Surgical History: Reports: None Oncologic Surgical History: Reports: None Dermatological Surgical History: Reports: None Social & Family History - Family History Family Medical History: No Pertinent Family History - Tobacco Use Tobacco Use Status *Q: Current Every Day Tobacco User Years of Tobacco use: 40 Packs/Tins Daily: 1 - Caffeine Use Caffeine Use: Reports: None Caffeine Use Comment: once in a while use of coffee. - Recreational Drug Use Recreational Drug Use: No ED ROS GENERAL - Review of Systems Review Of Systems: Comprehensive ROS is negative, except as noted in HPI. ED EXAM, GENERAL - Physical Exam Exam: See Below (see dictation) Course - Vital Signs Last Recorded V/S: Last Vital Signs Temp 98.7 F 08/04/20 20:44 Pulse 74 08/04/20 20:44 Resp 16 08/04/20 20:44 BP 121/76 08/04/20 20:44 Pulse Ox 98 08/04/20 21:36 - Orders/Labs/Meds Orders: Active Orders 24 hr Category Date Time Status Admission Status [Patient Status] [ADT] Stat ADT 08/04/20 18:46 Active Oxygen Therapy [RC] PRN Care 08/04/20 19:27 Active VTE/DVT Education [RC] DAILY Care 08/04/20 19:27 Active Vital Signs [RC] Q4H Care 08/04/20 19:27 Active Consult to Physical Therapy [PT Evaluation and Cons 08/04/20 19:31 Active Treatment] [CONS] Stat Regular Diet [DIET] Diet 08/05/20 Breakfast Active BASIC METABOLIC PANEL,BMP [CHEM] AM Lab 08/05/20 05:11 Ordered CBC WITH AUTO DIFF [HEME] AM Lab 08/05/20 05:11 Ordered MAGNESIUM [CHEM] AM Lab 08/05/20 05:11 Ordered Folic Acid Med 08/05/20 09:00 Active 1 mg PO DAILY LORazepam [Ativan] Med 08/04/20 19:40 Active See Protocol IVPUSH Q4H PRN Magnesium Sulfate/Water [Magnesium Sulfate in Water 4 Med 08/04/20 18:40 Active GM/100 ML] 4 gm Premix Bag 1 bag IV ONETIME Phosphorus #1 [Neutra-Phos] Med 08/05/20 09:00 Active 250 mg PO DAILY Potassium Chloride Riders [KCL in Water 40 MEQ/100 ML] Med 08/04/20 18:40 Active 40 meq Premix Bag 1 bag IV ONETIME Sodium Chloride 0.9% [Saline Flush] Med 08/04/20 15:42 Active 10 ml FLUSH ASDIRECTED PRN Sodium Chloride 0.9% [Saline Flush] Med 08/04/20 15:42 Active 2.5 ml FLUSH ASDIRECTED PRN Thiamine [Vitamin B-1] Med 08/05/20 09:00 Active 100 mg PO DAILY Saline Lock Insert [OM.PC] Stat Oth 08/04/20 15:42 Ordered Medication Orders Folic Acid (Folic Acid 1 Mg Tab) 1 mg PO DAILY MARCEL Potassium Chloride 40 meq/ (Premix) 100 mls @ 25 mls/hr IV ONETIME ONE Stop: 08/04/20 22:39 Last Admin: 08/04/20 20:17 Dose: 25 mls/hr Documented by: TERRENCE Magnesium Sulfate 4 gm/ Premix 100 mls @ 25 mls/hr IV ONETIME ONE Stop: 08/04/20 22:39 Last Admin: 08/04/20 19:24 Dose: 25 mls/hr Documented by: TERRENCE Sodium Chloride (Normal Saline) 1,000 mls @ 125 mls/hr IV NOW STA Stop: 08/05/20 04:06 Last Admin: 08/04/20 20:14 Dose: 125 mls/hr Documented by: TERRENCE Pantoprazole Sodium 40 mg/ (Sodium Chloride) 10 mls @ 300 mls/hr IV Q24H MARCEL Sodium Chloride (Normal Saline) 1,000 mls @ 100 mls/hr IV ASDIRECTED MARCEL Lorazepam (Lorazepam 2 Mg/Ml Sdv) 0 mg IVPUSH Q4H PRN; Protocol PRN Reason: Agitation Sodium Chloride (Sodium Chloride 0.9% 10 Ml Syringe) 10 ml FLUSH ASDIRECTED PRN PRN Reason: Keep Vein Open Last Admin: 08/04/20 16:05 Dose: 10 ml Documented by: Admin: 08/04/20 16:03 Dose: 10 ml Documented by: SON Sodium Chloride (Sodium Chloride 0.9% 2.5 Ml Syringe) 2.5 ml FLUSH ASDIRECTED PRN PRN Reason: Keep Vein Open Sodium Phosphate (Phosphorus #1 250 Mg Tab) [address] [facility] Thiamine HCl (Thiamine 100 Mg Tab) [address] [facility] Labs: Laboratory Tests 08/04/20 08/04/20 08/04/20 Range/Units 17:36 18:00 18:00 WBC 6.43 (4.0-11.0) K/uL RBC 3.53 L (4.50-5.90) M/uL Hgb 11.8 L (13.0-17.0) g/dL Hct 32.8 L (38.0-50.0) % MCV 92.9 (80.0-98.0) fL MCH 33.4 H (27.0-32.0) pg MCHC 36.0 (31.0-37.0) g/dL RDW Std Deviation 50.5 (28.0-62.0) fl RDW Coeff of Stephane 15 (11.0-15.0) % Plt Count 94 L (150-400) K/uL MPV 10.80 (7.40-12.00) fL Neut % (Auto) 53.6 (48.0-80.0) % Lymph % (Auto) 28.5 (16.0-40.0) % [place] % (Auto) 16.8 H (0.0-15.0) % Eos % (Auto) 0.9 (0.0-7.0) % Baso % (Auto) 0.2 (0.0-1.5) % Neut # (Auto) 3.5 (1.4-5.7) K/uL Lymph # (Auto) 1.8 (0.6-2.4) K/uL [place] # (Auto) 1.1 H (0.0-0.8) K/uL Eos # (Auto) 0.1 (0.0-0.7) K/uL Baso # (Auto) 0.0 (0.0-0.1) K/uL Nucleated RBC % 0.0 /100WBC Nucleated RBCs # 0 K/uL INR 1.15 Sodium (136-148) mmol/L Potassium (3.5-5.1) mmol/L Chloride (98-107) mmol/L Carbon Dioxide (21.0-32.0) mmol/L BUN (7.0-18.0) mg/dL Creatinine (0.8-1.3) mg/dL Est Cr Clr Drug Dosing mL/min Estimated GFR (MDRD) ml/min Glucose (74-106) mg/dL Calcium (8.5-10.1) mg/dL Phosphorus (2.6-4.7) mg/dL Magnesium (1.8-2.4) mg/dL Total Bilirubin (0.2-1.0) mg/dL AST (15-37) IU/L ALT (14-63) IU/L Alkaline Phosphatase (46-116) U/L Ammonia (19-54) ug/dL Troponin I (0.000-0.056) ng/mL Total Protein (6.4-8.2) g/dL Albumin (3.4-5.0) g/dL Globulin (2.6-4.0) g/dL Albumin/Globulin Ratio (0.9-1.6) Urine Color YELLOW Urine Appearance CLEAR Urine pH 5.5 (5.0-8.0) Ur Specific [place] <= 1.005 (1.001-1.035) Urine Protein NEGATIVE (NEGATIVE) mg/dL Urine Glucose (UA) NEGATIVE (NEGATIVE) mg/dL Urine Ketones TRACE H (NEGATIVE) mg/dL Urine Occult Blood NEGATIVE (NEGATIVE) Urine Nitrite NEGATIVE (NEGATIVE) Urine Bilirubin SMALL H (NEGATIVE) Urine Ictotest NEGATIVE Urine Urobilinogen 2.0 H (<2.0) EU/dL Ur Leukocyte Esterase NEGATIVE (NEGATIVE) Ethyl Alcohol mg/dL Influenza Type A RNA (NEGATIVE) Influenza Type B RNA (NEGATIVE) SARS-CoV-2 RNA (EMANI) (NEGATIVE) 08/04/20 08/04/20 08/04/20 Range/Units 18:00 18:00 18:00 WBC (4.0-11.0) K/uL RBC (4.50-5.90) M/uL Hgb (13.0-17.0) g/dL Hct (38.0-50.0) % MCV (80.0-98.0) fL MCH (27.0-32.0) pg MCHC (31.0-37.0) g/dL RDW Std Deviation (28.0-62.0) fl RDW Coeff of Stephane (11.0-15.0) % Plt Count (150-400) K/uL MPV (7.40-12.00) fL Neut % (Auto) (48.0-80.0) % Lymph % (Auto) (16.0-40.0) % [place] % (Auto) (0.0-15.0) % Eos % (Auto) (0.0-7.0) % Baso % (Auto) (0.0-1.5) % Neut # (Auto) (1.4-5.7) K/uL Lymph # (Auto) (0.6-2.4) K/uL [place] # (Auto) (0.0-0.8) K/uL Eos # (Auto) (0.0-0.7) K/uL Baso # (Auto) (0.0-0.1) K/uL Nucleated RBC % /100WBC Nucleated RBCs # K/uL INR Sodium 131 L (136-148) mmol/L Potassium 2.6 L (3.5-5.1) mmol/L Chloride 91 L (98-107) mmol/L Carbon Dioxide 31.0 (21.0-32.0) mmol/L BUN 8 (7.0-18.0) mg/dL Creatinine 0.7 L (0.8-1.3) mg/dL Est Cr Clr Drug Dosing 99.90 mL/min Estimated GFR (MDRD) > 60.0 ml/min Glucose 97 (74-106) mg/dL Calcium 8.6 (8.5-10.1) mg/dL Phosphorus (2.6-4.7) mg/dL Magnesium 1.4 L (1.8-2.4) mg/dL Total Bilirubin 1.2 H (0.2-1.0) mg/dL AST 130 H (15-37) IU/L ALT 43 (14-63) IU/L Alkaline Phosphatase 101 (46-116) U/L Ammonia < 17 L (19-54) ug/dL Troponin I < 0.050 (0.000-0.056) ng/mL Total Protein 7.5 (6.4-8.2) g/dL Albumin 3.1 L (3.4-5.0) g/dL Globulin 4.4 H (2.6-4.0) g/dL Albumin/Globulin Ratio 0.7 L (0.9-1.6) Urine Color Urine Appearance Urine pH (5.0-8.0) Ur Specific [place] (1.001-1.035) Urine Protein (NEGATIVE) mg/dL Urine Glucose (UA) (NEGATIVE) mg/dL Urine Ketones (NEGATIVE) mg/dL Urine Occult Blood (NEGATIVE) Urine Nitrite (NEGATIVE) Urine Bilirubin (NEGATIVE) Urine Ictotest Urine Urobilinogen (<2.0) EU/dL Ur Leukocyte Esterase (NEGATIVE) Ethyl Alcohol < 3.0 mg/dL Influenza Type A RNA (NEGATIVE) Influenza Type B RNA (NEGATIVE) SARS-CoV-2 RNA (EMANI) (NEGATIVE) 08/04/20 08/04/20 Range/Units 18:00 19:10 WBC (4.0-11.0) K/uL RBC (4.50-5.90) M/uL Hgb (13.0-17.0) g/dL Hct (38.0-50.0) % MCV (80.0-98.0) fL MCH (27.0-32.0) pg MCHC (31.0-37.0) g/dL RDW Std Deviation (28.0-62.0) fl RDW Coeff of Stephane (11.0-15.0) % Plt Count (150-400) K/uL MPV (7.40-12.00) fL Neut % (Auto) (48.0-80.0) % Lymph % (Auto) (16.0-40.0) % [place] % (Auto) (0.0-15.0) % Eos % (Auto) (0.0-7.0) % Baso % (Auto) (0.0-1.5) % Neut # (Auto) (1.4-5.7) K/uL Lymph # (Auto) (0.6-2.4) K/uL [place] # (Auto) (0.0-0.8) K/uL Eos # (Auto) (0.0-0.7) K/uL Baso # (Auto) (0.0-0.1) K/uL Nucleated RBC % /100WBC Nucleated RBCs # K/uL INR Sodium (136-148) mmol/L Potassium (3.5-5.1) mmol/L Chloride (98-107) mmol/L Carbon Dioxide (21.0-32.0) mmol/L BUN (7.0-18.0) mg/dL Creatinine (0.8-1.3) mg/dL Est Cr Clr Drug Dosing mL/min Estimated GFR (MDRD) ml/min Glucose (74-106) mg/dL Calcium (8.5-10.1) mg/dL Phosphorus 2.8 (2.6-4.7) mg/dL Magnesium (1.8-2.4) mg/dL Total Bilirubin (0.2-1.0) mg/dL AST (15-37) IU/L ALT (14-63) IU/L Alkaline Phosphatase (46-116) U/L Ammonia (19-54) ug/dL Troponin I (0.000-0.056) ng/mL Total Protein (6.4-8.2) g/dL Albumin (3.4-5.0) g/dL Globulin (2.6-4.0) g/dL Albumin/Globulin Ratio (0.9-1.6) Urine Color Urine Appearance Urine pH (5.0-8.0) Ur Specific [place] (1.001-1.035) Urine Protein (NEGATIVE) mg/dL Urine Glucose (UA) (NEGATIVE) mg/dL Urine Ketones (NEGATIVE) mg/dL Urine Occult Blood (NEGATIVE) Urine Nitrite (NEGATIVE) Urine Bilirubin (NEGATIVE) Urine Ictotest Urine Urobilinogen (<2.0) EU/dL Ur Leukocyte Esterase (NEGATIVE) Ethyl Alcohol mg/dL Influenza Type A RNA NEGATIVE (NEGATIVE) Influenza Type B RNA NEGATIVE (NEGATIVE) SARS-CoV-2 RNA (EMANI) NEGATIVE (NEGATIVE) Meds: Medications Generic Name Dose Route Start Last Admin Trade Name Freq PRN Reason Stop Dose Admin Folic Acid 1 mg 08/05/20 09:00 Folic Acid 1 Mg Tab PO DAILY MARCEL Potassium Chloride 40 meq/ 100 mls @ 25 mls/hr 08/04/20 18:40 08/04/20 20:17 Premix IV 08/04/20 22:39 25 mls/hr ONETIME ONE Administration Magnesium Sulfate 4 gm/ Premix 100 mls @ 25 mls/hr 08/04/20 18:40 08/04/20 19:24 IV 08/04/20 22:39 25 mls/hr ONETIME ONE Administration Sodium Chloride 1,000 mls @ 125 mls/hr 08/04/20 20:07 08/04/20 20:14 Normal Saline IV 08/05/20 04:06 125 mls/hr NOW STA Administration Pantoprazole Sodium 40 mg/ 10 mls @ 300 mls/hr 08/04/20 20:15 Sodium Chloride IV Q24H MARCEL Sodium Chloride 1,000 mls @ 100 mls/hr 08/04/20 20:15 Normal Saline IV ASDIRECTED MARCEL Lorazepam 0 mg 08/04/20 19:40 Lorazepam 2 Mg/Ml Sdv IVPUSH Q4H PRN Agitation Protocol Sodium Chloride 10 ml 08/04/20 15:42 08/04/20 16:05 Sodium Chloride 0.9% 10 Ml Syringe FLUSH 10 ml ASDIRECTED PRN Administration Keep Vein Open Sodium Chloride 2.5 ml 08/04/20 15:42 Sodium Chloride 0.9% 2.5 Ml Syringe FLUSH ASDIRECTED PRN Keep Vein Open Sodium Phosphate 250 mg 08/05/20 09:00 Phosphorus #1 250 Mg Tab PO DAILY MARCEL Thiamine HCl 100 mg 08/05/20 09:00 Thiamine 100 Mg Tab PO DAILY MARCEL Discontinued Medications Generic Name Dose Route Start Last Admin Trade Name Freq PRN Reason Stop Dose Admin Multivitamins/Minerals 10 ml/ 1,011.2 mls @ 999 mls/hr 08/04/20 15:42 08/04/20 16:01 Thiamine HCl 100 mg/ Folic IV 08/04/20 16:42 999 mls/hr Acid 1 mg/ Sodium Chloride ONETIME ONE Administration Departure - Departure Time of Disposition: 18:53 Disposition: Refer to Observation Clinical Impression: Hypokalemia, Weakness - Discharge Information Sepsis Event Note (ED) - Evaluation Sepsis Screening Result: No Definite Risk - Focused Exam Vital Signs: Vital Signs Temp Pulse Resp BP Pulse Ox 08/04/20 19:30 73 18 134/73 97 08/04/20 15:34 98 F 88 18 114/79 97 - My Orders Last 24 Hours: My Active Orders 08/04/20 15:42 Sodium Chloride 0.9% [Saline Flush] 10 ml FLUSH ASDIRECTED PRN Sodium Chloride 0.9% [Saline Flush] 2.5 ml FLUSH ASDIRECTED PRN Saline Lock Insert [OM.PC] Stat 08/04/20 18:40 Magnesium Sulfate/Water [Magnesium Sulfate in Water 4 GM/100 ML] 4 gm Premix Bag 1 bag IV ONETIME Potassium Chloride Riders [KCL in Water 40 MEQ/100 ML] 40 meq Premix Bag 1 bag IV ONETIME 08/04/20 18:46 Admission Status [Patient Status] [ADT] Stat - Assessment/Plan Last 24 Hours: My Active Orders 08/04/20 15:42 Sodium Chloride 0.9% [Saline Flush] 10 ml FLUSH ASDIRECTED PRN Sodium Chloride 0.9% [Saline Flush] 2.5 ml FLUSH ASDIRECTED PRN Saline Lock Insert [OM.PC] Stat 08/04/20 18:40 Magnesium Sulfate/Water [Magnesium Sulfate in Water 4 GM/100 ML] 4 gm Premix Bag 1 bag IV ONETIME Potassium Chloride Riders [KCL in Water 40 MEQ/100 ML] 40 meq Premix Bag 1 bag IV ONETIME 08/04/20 18:46 Admission Status [Patient Status] [ADT] Stat
--- NOTE | 2020-08-04 19:29 | PCM.HP.2 ---
<Kenny Doherty - Last Filed: 08/04/20 20:33> H&P History of Present Illness - General Date of Service: 08/04/20 Admit Problem/Dx: Admission Diagnosis/Problem Admission Diagnosis/Problem Hypokalemia - History of Present Illness Initial Comments - Free Text/Narative: Patient is a 65-year-old male admitted for generalized weakness, hypokalemia, hypomagnesemia, thrombocytopenia. Patient has a history of multiple admissions secondary to alcohol abuse/alcohol withdrawal. Patient states that he was in the clinic today for follow-up visit at which time his primary care physician advised patient to visit the ED for follow-up due to generalized weakness and difficulty with ambulation. Patient states that his generalized weakness began roughly 4 days ago and has been getting weaker since. Patient denies any recent changes to diet, alcohol ingestion, infections. Patient states he came to the emergency department on recommendation of her primary care physician and without a benzo otherwise. On admission patient denies fever, chills, nausea, vomiting, abdominal pain, chest pain, shortness of breath, headaches, dizziness, dysuria, lower back pain, leg pain, decreased sensation in lower extremities. Lab work, white blood cell count 6.43, sodium 131, potassium 2.6, magnesium 1.4, AST 130, platelet 94, UA negative, alcohol negative, chest x-ray no cardiopulmonary disease is noted. Patient admitted to the floor, will start IV normal saline, resumed folic acid and thiamine, WA protocol, physical therapy evaluation tomorrow, monitor a.m. labs. - Related Data Allergies/Adverse Reactions: Allergies Allergy/AdvReac Type Severity Reaction Status Date / Time No Known Allergies Allergy Verified 08/04/20 21:41 Home Medications: Home Meds Folic Acid 1 mg PO DAILY 08/04/20 [History] Sod Phos Di, [place]/K Phos [place] [K-Phos Neutral Tablet] 250 mg PO DAILY 08/04/20 [History] Thiamine HCl [B-1] 100 mg PO DAILY 08/04/20 [History] Past Medical History - Past Health History Medical/Surgical History: Denies Medical/Surgical History HEENT History: Reports: None Cardiovascular History: Reports: High Cholesterol, Hypertension Respiratory History: Reports: None Gastrointestinal History: Reports: GI Bleed Genitourinary History: Reports: None Musculoskeletal History: Reports: None Neurological History: Reports: None Psychiatric History: Reports: None Endocrine/Metabolic History: Reports: None 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 Hematologic History: Reports: None Immunologic History: Reports: None Oncologic (Cancer) History: Reports: None Dermatologic History: Reports: None - Infectious Disease History Infectious Disease History: Reports: None - Past Surgical History Head Surgeries/Procedures: Reports: None HEENT Surgical History: Reports: None Cardiovascular Surgical History: Reports: None Respiratory Surgical History: Reports: None GI Surgical History: Reports: EGD Male Surgical History: Reports: None Endocrine Surgical History: Reports: None Neurological Surgical History: Reports: None Musculoskeletal Surgical History: Reports: None Oncologic Surgical History: Reports: None Dermatological Surgical History: Reports: None Social & Family History - Family History Family Medical History: No Pertinent Family History - Tobacco Use Tobacco Use Status *Q: Current Every Day Tobacco User Years of Tobacco use: 40 Packs/Tins Daily: 1 - Caffeine Use Caffeine Use: Reports: None Caffeine Use Comment: once in a while use of coffee. - Recreational Drug Use Recreational Drug Use: No H&P Review of Systems - Review of Systems: Review Of Systems: See Below General: Reports: Weakness, Fatigue. Denies: Fever, Chills Pulmonary: Denies: Shortness of Breath, Wheezing, Cough Cardiovascular: Denies: Chest Pain, Palpitations Gastrointestinal: Denies: Abdominal Pain, Nausea, Vomiting Genitourinary: Denies: Dysuria Psychiatric: Denies: Confusion, Depression Neurological: Denies: Confusion, Dizziness, Headache Exam - Exam Exam: See Below - Vital Signs Vital Signs: Last Vital Signs Temp 98 F 08/04/20 15:34 Pulse 88 08/04/20 15:34 Resp 18 08/04/20 15:34 BP 114/79 08/04/20 15:34 Pulse Ox 97 08/04/20 15:34 Weight: 68.039 kg - Exam General: Alert, Lethargic Lungs: Clear to Auscultation, Normal Respiratory Effort Cardiovascular: Regular Rate, Regular Rhythm GI/Abdominal Exam: Normal Bowel Sounds, Soft, Non-Tender Back Exam: No: CVA Tenderness (L), CVA Tenderness (R) Extremities: No Pedal Edema. No: Leg Pain Neurological: Strength Equal Bilateral Neuro Extensive - Mental Status: Alert Psychiatric: Alert - Patient Data Lab Results Last 24 hrs: Laboratory Results - last 24 hr 0308/04/20 08/04/20 Range/Units 17:36 18:00 18:00 WBC 6.43 (4.0-11.0) K/uL RBC 3.53 L (4.50-5.90) M/uL Hgb 11.8 L (13.0-17.0) g/dL Hct 32.8 L (38.0-50.0) % MCV 92.9 (80.0-98.0) fL MCH 33.4 H (27.0-32.0) pg MCHC 36.0 (31.0-37.0) g/dL RDW Std Deviation 50.5 (28.0-62.0) fl RDW Coeff of Stephane 15 (11.0-15.0) % Plt Count 94 L (150-400) K/uL MPV 10.80 (7.40-12.00) fL Neut % (Auto) 53.6 (48.0-80.0) % Lymph % (Auto) 28.5 (16.0-40.0) % [place] % (Auto) 16.8 H (0.0-15.0) % Eos % (Auto) 0.9 (0.0-7.0) % Baso % (Auto) 0.2 (0.0-1.5) % Neut # (Auto) 3.5 (1.4-5.7) K/uL Lymph # (Auto) 1.8 (0.6-2.4) K/uL [place] # (Auto) 1.1 H (0.0-0.8) K/uL Eos # (Auto) 0.1 (0.0-0.7) K/uL Baso # (Auto) 0.0 (0.0-0.1) K/uL Nucleated RBC % 0.0 /100WBC Nucleated RBCs # 0 K/uL INR 1.15 Sodium (136-148) mmol/L Potassium (3.5-5.1) mmol/L Chloride (98-107) mmol/L Carbon Dioxide (21.0-32.0) mmol/L BUN (7.0-18.0) mg/dL Creatinine (0.8-1.3) mg/dL Est Cr Clr Drug Dosing mL/min Estimated GFR (MDRD) ml/min Glucose (74-106) mg/dL Calcium (8.5-10.1) mg/dL Magnesium (1.8-2.4) mg/dL Total Bilirubin (0.2-1.0) mg/dL AST (15-37) IU/L ALT (14-63) IU/L Alkaline Phosphatase (46-116) U/L Ammonia (19-54) ug/dL Troponin I (0.000-0.056) ng/mL Total Protein (6.4-8.2) g/dL Albumin (3.4-5.0) g/dL Globulin (2.6-4.0) g/dL Albumin/Globulin Ratio (0.9-1.6) Urine Color YELLOW Urine Appearance CLEAR Urine pH 5.5 (5.0-8.0) Ur Specific [place] <= 1.005 (1.001-1.035) Urine Protein NEGATIVE (NEGATIVE) mg/dL Urine Glucose (UA) NEGATIVE (NEGATIVE) mg/dL Urine Ketones TRACE H (NEGATIVE) mg/dL Urine Occult Blood NEGATIVE (NEGATIVE) Urine Nitrite NEGATIVE (NEGATIVE) Urine Bilirubin SMALL H (NEGATIVE) Urine Ictotest NEGATIVE Urine Urobilinogen 2.0 H (<2.0) EU/dL Ur Leukocyte Esterase NEGATIVE (NEGATIVE) Ethyl Alcohol mg/dL 08/04/20 08/04/20 08/04/20 Range/Units 18:00 18:00 18:00 WBC (4.0-11.0) K/uL RBC (4.50-5.90) M/uL Hgb (13.0-17.0) g/dL Hct (38.0-50.0) % MCV (80.0-98.0) fL MCH (27.0-32.0) pg MCHC (31.0-37.0) g/dL RDW Std Deviation (28.0-62.0) fl RDW Coeff of Stephane (11.0-15.0) % Plt Count (150-400) K/uL MPV (7.40-12.00) fL Neut % (Auto) (48.0-80.0) % Lymph % (Auto) (16.0-40.0) % [place] % (Auto) (0.0-15.0) % Eos % (Auto) (0.0-7.0) % Baso % (Auto) (0.0-1.5) % Neut # (Auto) (1.4-5.7) K/uL Lymph # (Auto) (0.6-2.4) K/uL [place] # (Auto) (0.0-0.8) K/uL Eos # (Auto) (0.0-0.7) K/uL Baso # (Auto) (0.0-0.1) K/uL Nucleated RBC % /100WBC Nucleated RBCs # K/uL INR Sodium 131 L (136-148) mmol/L Potassium 2.6 L (3.5-5.1) mmol/L Chloride 91 L (98-107) mmol/L Carbon Dioxide 31.0 (21.0-32.0) mmol/L BUN 8 (7.0-18.0) mg/dL Creatinine 0.7 L (0.8-1.3) mg/dL Est Cr Clr Drug Dosing 99.90 mL/min Estimated GFR (MDRD) > 60.0 ml/min Glucose 97 (74-106) mg/dL Calcium 8.6 (8.5-10.1) mg/dL Magnesium 1.4 L (1.8-2.4) mg/dL Total Bilirubin 1.2 H (0.2-1.0) mg/dL AST 130 H (15-37) IU/L ALT 43 (14-63) IU/L Alkaline Phosphatase 101 (46-116) U/L Ammonia < 17 L (19-54) ug/dL Troponin I < 0.050 (0.000-0.056) ng/mL Total Protein 7.5 (6.4-8.2) g/dL Albumin 3.1 L (3.4-5.0) g/dL Globulin 4.4 H (2.6-4.0) g/dL Albumin/Globulin Ratio 0.7 L (0.9-1.6) Urine Color Urine Appearance Urine pH (5.0-8.0) Ur Specific [place] (1.001-1.035) Urine Protein (NEGATIVE) mg/dL Urine Glucose (UA) (NEGATIVE) mg/dL Urine Ketones (NEGATIVE) mg/dL Urine Occult Blood (NEGATIVE) Urine Nitrite (NEGATIVE) Urine Bilirubin (NEGATIVE) Urine Ictotest Urine Urobilinogen (<2.0) EU/dL Ur Leukocyte Esterase (NEGATIVE) Ethyl Alcohol < 3.0 mg/dL Result Diagrams: 08/04/20 18:00 08/04/20 18:00 Sepsis Event Note - Evaluation Sepsis Screening Result: No Definite Risk - Focused Exam Vital Signs: Vital Signs Temp Pulse Resp BP Pulse Ox 08/04/20 15:34 98 F 88 18 114/79 97 - Problem List (1) Hypokalemia SNOMED Code(s): 37153010 ICD Code: E87.6 - HYPOKALEMIA Status: Acute Current Visit: Yes (2) Weakness SNOMED Code(s): 03605610 ICD Code: R53.1 - WEAKNESS Status: Acute Current Visit: Yes (3) Elevated liver enzymes SNOMED Code(s): 322506104 ICD Code: R74.8 - ABNORMAL LEVELS OF OTHER SERUM ENZYMES Status: Acute Current Visit: No (4) Hypomagnesemia SNOMED Code(s): 000019753 ICD Code: E83.42 - HYPOMAGNESEMIA Status: Acute Current Visit: No (5) Thrombocytopenia SNOMED Code(s): 240647047 ICD Code: D69.6 - THROMBOCYTOPENIA, UNSPECIFIED Status: Chronic Priority: High Current Visit: No Problem List Initiated/Reviewed/Updated: Yes Orders Last 24hrs: Active Orders 24 hr Category Date Time Status Admission Status [Patient Status] [ADT] Stat ADT 08/04/20 18:46 Active Cardiac Monitoring [RC] . DIRECTED Care 08/04/20 15:42 Active EKG Documentation Completion [RC] STAT Care 08/04/20 15:42 Active Oxygen Therapy [RC] PRN Care 08/04/20 19:27 Ordered VTE/DVT Education [RC] PER UNIT ROUTINE Care 08/04/20 19:27 Ordered Vital Signs [RC] Q4H Care 08/04/20 19:27 Ordered COVID-19/FLU A+B [MOLEC] Stat Lab 08/04/20 19:10 Received Folic Acid Med 08/05/20 09:00 Ordered 1 mg PO DAILY Magnesium Sulfate/Water [Magnesium Sulfate in Water 4 Med 08/04/20 18:40 Active GM/100 ML] 4 gm Premix Bag 1 bag IV ONETIME Phosphorus #1 [Neutra-Phos] Med 08/05/20 09:00 Ordered 250 mg PO DAILY Potassium Chloride Riders [KCL in Water 40 MEQ/100 ML] Med 08/04/20 18:40 Active 40 meq Premix Bag 1 bag IV ONETIME Sodium Chloride 0.9% [Saline Flush] Med 08/04/20 15:42 Active 10 ml FLUSH ASDIRECTED PRN Sodium Chloride 0.9% [Saline Flush] Med 08/04/20 15:42 Active 2.5 ml FLUSH ASDIRECTED PRN Thiamine [Vitamin B-1] Med 08/05/20 09:00 Ordered 100 mg PO DAILY Saline Lock Insert [OM.PC] Stat Oth 08/04/20 15:42 Ordered Medication Orders Folic Acid (Folic Acid 1 Mg Tab) 1 mg PO DAILY MARCEL Potassium Chloride 40 meq/ (Premix) 100 mls @ 25 mls/hr IV ONETIME ONE Stop: 08/04/20 22:39 Magnesium Sulfate 4 gm/ Premix 100 mls @ 25 mls/hr IV ONETIME ONE Stop: 08/04/20 22:39 Last Admin: 08/04/20 19:24 Dose: 25 mls/hr Documented by: TERRENCE Sodium Chloride (Sodium Chloride 0.9% 10 Ml Syringe) 10 ml FLUSH ASDIRECTED PRN PRN Reason: Keep Vein Open Last Admin: 08/04/20 16:05 Dose: 10 ml Documented by: Admin: 08/04/20 16:03 Dose: 10 ml Documented by: SON Sodium Chloride (Sodium Chloride 0.9% 2.5 Ml Syringe) 2.5 ml FLUSH ASDIRECTED PRN PRN Reason: Keep Vein Open Sodium Phosphate (Phosphorus #1 250 Mg Tab) 250 mg PO DAILY [facility] Thiamine HCl (Thiamine 100 Mg Tab) 100 mg PO DAILY [facility] Assessment/Plan Comment:: Generalized weaknessPT consult for ambulation and strengthening. Replace electrolytes, IV fluids PRN, encourage p.o. food intake. History of alcohol abuse abuse/withdrawal-patient has a history of alcohol abuse withdrawal. CIWA protocol with Ativan as needed, continue thiamine and folic acid. Hypokalemia/hypomagnesemia- 40meq K+ and magnesium IV 4 g given in ED, A.M labs Transaminitis and thrombocytopenia- AST 130, Plt 97, Likely secondary to alcohol abuse, monitor AM labs SCD due to low platelet count, regular diet, protonix <Bossman,Hooria - Last Filed: 08/04/20 23:00> H&P History of Present Illness - General Admit Problem/Dx: Admission Diagnosis/Problem Admission Diagnosis/Problem Hypokalemia - History of Present Illness Initial Comments - Free Text/Narative: I performed a history and physical exam of the patient and discussed management with resident. I have reviewed the residents note and agree with documented findings and plan unless otherwise specified in my note. Exam - Vital Signs Vital Signs: Last Vital Signs Temp 37.1 C 08/04/20 20:44 Pulse 74 08/04/20 20:44 Resp 16 08/04/20 20:44 BP 121/76 08/04/20 20:44 Pulse Ox 98 08/04/20 21:36 - Patient Data Lab Results Last 24 hrs: Laboratory Results - last 24 hr 08/04/20 08/04/20 08/04/20 Range/Units 17:36 18:00 18:00 WBC 6.43 (4.0-11.0) K/uL RBC 3.53 L (4.50-5.90) M/uL Hgb 11.8 L (13.0-17.0) g/dL Hct 32.8 L (38.0-50.0) % MCV 92.9 (80.0-98.0) fL MCH 33.4 H (27.0-32.0) pg MCHC 36.0 (31.0-37.0) g/dL RDW Std Deviation 50.5 (28.0-62.0) fl RDW Coeff of Stephane 15 (11.0-15.0) % Plt Count 94 L (150-400) K/uL MPV 10.80 (7.40-12.00) fL Neut % (Auto) 53.6 (48.0-80.0) % Lymph % (Auto) 28.5 (16.0-40.0) % [place] % (Auto) 16.8 H (0.0-15.0) % Eos % (Auto) 0.9 (0.0-7.0) % Baso % (Auto) 0.2 (0.0-1.5) % Neut # (Auto) 3.5 (1.4-5.7) K/uL Lymph # (Auto) 1.8 (0.6-2.4) K/uL [place] # (Auto) 1.1 H (0.0-0.8) K/uL Eos # (Auto) 0.1 (0.0-0.7) K/uL Baso # (Auto) 0.0 (0.0-0.1) K/uL Nucleated RBC % 0.0 /100WBC Nucleated RBCs # 0 K/uL INR 1.15 Sodium (136-148) mmol/L Potassium (3.5-5.1) mmol/L Chloride (98-107) mmol/L Carbon Dioxide (21.0-32.0) mmol/L BUN (7.0-18.0) mg/dL Creatinine (0.8-1.3) mg/dL Est Cr Clr Drug Dosing mL/min Estimated GFR (MDRD) ml/min Glucose (74-106) mg/dL Calcium (8.5-10.1) mg/dL Phosphorus (2.6-4.7) mg/dL Magnesium (1.8-2.4) mg/dL Total Bilirubin (0.2-1.0) mg/dL AST (15-37) IU/L ALT (14-63) IU/L Alkaline Phosphatase (46-116) U/L Ammonia (19-54) ug/dL Troponin I (0.000-0.056) ng/mL Total Protein (6.4-8.2) g/dL Albumin (3.4-5.0) g/dL Globulin (2.6-4.0) g/dL Albumin/Globulin Ratio (0.9-1.6) Urine Color YELLOW Urine Appearance CLEAR Urine pH 5.5 (5.0-8.0) Ur Specific [place] <= 1.005 (1.001-1.035) Urine Protein NEGATIVE (NEGATIVE) mg/dL Urine Glucose (UA) NEGATIVE (NEGATIVE) mg/dL Urine Ketones TRACE H (NEGATIVE) mg/dL Urine Occult Blood NEGATIVE (NEGATIVE) Urine Nitrite NEGATIVE (NEGATIVE) Urine Bilirubin SMALL H (NEGATIVE) Urine Ictotest NEGATIVE Urine Urobilinogen 2.0 H (<2.0) EU/dL Ur Leukocyte Esterase NEGATIVE (NEGATIVE) Ethyl Alcohol mg/dL Influenza Type A RNA (NEGATIVE) Influenza Type B RNA (NEGATIVE) SARS-CoV-2 RNA (EMANI) (NEGATIVE) 08/04/20 08/04/2008/04/21 Range/Units 18:00 18:00 18:00 WBC (4.0-11.0) K/uL RBC (4.50-5.90) M/uL Hgb (13.0-17.0) g/dL Hct (38.0-50.0) % MCV (80.0-98.0) fL MCH (27.0-32.0) pg MCHC (31.0-37.0) g/dL RDW Std Deviation (28.0-62.0) fl RDW Coeff of Stephane (11.0-15.0) % Plt Count (150-400) K/uL MPV (7.40-12.00) fL Neut % (Auto) (48.0-80.0) % Lymph % (Auto) (16.0-40.0) % [place] % (Auto) (0.0-15.0) % Eos % (Auto) (0.0-7.0) % Baso % (Auto) (0.0-1.5) % Neut # (Auto) (1.4-5.7) K/uL Lymph # (Auto) (0.6-2.4) K/uL [place] # (Auto) (0.0-0.8) K/uL Eos # (Auto) (0.0-0.7) K/uL Baso # (Auto) (0.0-0.1) K/uL Nucleated RBC % /100WBC Nucleated RBCs # K/uL INR Sodium 131 L (136-148) mmol/L Potassium 2.6 L (3.5-5.1) mmol/L Chloride 91 L (98-107) mmol/L Carbon Dioxide 31.0 (21.0-32.0) mmol/L BUN 8 (7.0-18.0) mg/dL Creatinine 0.7 L (0.8-1.3) mg/dL Est Cr Clr Drug Dosing 99.90 mL/min Estimated GFR (MDRD) > 60.0 ml/min Glucose 97 (74-106) mg/dL Calcium 8.6 (8.5-10.1) mg/dL Phosphorus (2.6-4.7) mg/dL Magnesium 1.4 L (1.8-2.4) mg/dL Total Bilirubin 1.2 H (0.2-1.0) mg/dL AST 130 H (15-37) IU/L ALT 43 (14-63) IU/L Alkaline Phosphatase 101 (46-116) U/L Ammonia < 17 L (19-54) ug/dL Troponin I < 0.050 (0.000-0.056) ng/mL Total Protein 7.5 (6.4-8.2) g/dL Albumin 3.1 L (3.4-5.0) g/dL Globulin 4.4 H (2.6-4.0) g/dL Albumin/Globulin Ratio 0.7 L (0.9-1.6) Urine Color Urine Appearance Urine pH (5.0-8.0) Ur Specific [place] (1.001-1.035) Urine Protein (NEGATIVE) mg/dL Urine Glucose (UA) (NEGATIVE) mg/dL Urine Ketones (NEGATIVE) mg/dL Urine Occult Blood (NEGATIVE) Urine Nitrite (NEGATIVE) Urine Bilirubin (NEGATIVE) Urine Ictotest Urine Urobilinogen (<2.0) EU/dL Ur Leukocyte Esterase (NEGATIVE) Ethyl Alcohol < 3.0 mg/dL Influenza Type A RNA (NEGATIVE) Influenza Type B RNA (NEGATIVE) SARS-CoV-2 RNA (EMANI) (NEGATIVE) 08/04/20 08/04/20 Range/Units 18:00 19:10 WBC (4.0-11.0) K/uL RBC (4.50-5.90) M/uL Hgb (13.0-17.0) g/dL Hct (38.0-50.0) % MCV (80.0-98.0) fL MCH (27.0-32.0) pg MCHC (31.0-37.0) g/dL RDW Std Deviation (28.0-62.0) fl RDW Coeff of Stephane (11.0-15.0) % Plt Count (150-400) K/uL MPV (7.40-12.00) fL Neut % (Auto) (48.0-80.0) % Lymph % (Auto) (16.0-40.0) % [place] % (Auto) (0.0-15.0) % Eos % (Auto) (0.0-7.0) % Baso % (Auto) (0.0-1.5) % Neut # (Auto) (1.4-5.7) K/uL Lymph # (Auto) (0.6-2.4) K/uL [place] # (Auto) (0.0-0.8) K/uL Eos # (Auto) (0.0-0.7) K/uL Baso # (Auto) (0.0-0.1) K/uL Nucleated RBC % /100WBC Nucleated RBCs # K/uL INR Sodium (136-148) mmol/L Potassium (3.5-5.1) mmol/L Chloride (98-107) mmol/L Carbon Dioxide (21.0-32.0) mmol/L BUN (7.0-18.0) mg/dL Creatinine (0.8-1.3) mg/dL Est Cr Clr Drug Dosing mL/min Estimated GFR (MDRD) ml/min Glucose (74-106) mg/dL Calcium (8.5-10.1) mg/dL Phosphorus 2.8 (2.6-4.7) mg/dL Magnesium (1.8-2.4) mg/dL Total Bilirubin (0.2-1.0) mg/dL AST (15-37) IU/L ALT (14-63) IU/L Alkaline Phosphatase (46-116) U/L Ammonia (19-54) ug/dL Troponin I (0.000-0.056) ng/mL Total Protein (6.4-8.2) g/dL Albumin (3.4-5.0) g/dL Globulin (2.6-4.0) g/dL Albumin/Globulin Ratio (0.9-1.6) Urine Color Urine Appearance Urine pH (5.0-8.0) Ur Specific [place] (1.001-1.035) Urine Protein (NEGATIVE) mg/dL Urine Glucose (UA) (NEGATIVE) mg/dL Urine Ketones (NEGATIVE) mg/dL Urine Occult Blood (NEGATIVE) Urine Nitrite (NEGATIVE) Urine Bilirubin (NEGATIVE) Urine Ictotest Urine Urobilinogen (<2.0) EU/dL Ur Leukocyte Esterase (NEGATIVE) Ethyl Alcohol mg/dL Influenza Type A RNA NEGATIVE (NEGATIVE) Influenza Type B RNA NEGATIVE (NEGATIVE) SARS-CoV-2 RNA (EMANI) NEGATIVE (NEGATIVE) Result Diagrams: 03/26/21 18:00 08/04/20 18:00 Sepsis Event Note - Focused Exam Vital Signs: Vital Signs Temp Pulse Resp BP Pulse Ox Pulse Ox 08/04/20 21:36 98 08/04/20 20:44 37.1 C 74 16 121/76 98 08/04/20 19:30 73 18 134/73 97 08/04/20 15:34 36.6 C 88 18 114/79 97 Orders Last 24hrs: Active Orders 24 hr Category Date Time Status Admission Status [Patient Status] [ADT] Stat ADT 08/04/20 18:46 Active Antiembolic Devices [RC] Q12H Care 08/04/20 20:22 Active Oxygen Therapy [RC] PRN Care 08/04/20 19:27 Active Telemetry Monitoring [Cardiac Monitoring] [RC] Q8H Care 08/04/20 20:52 Active VTE/DVT Education [RC] DAILY Care 08/04/20 19:27 Active Vital Signs [RC] Q4H Care 08/04/20 19:27 Active Consult to Physical Therapy [PT Evaluation and Cons 08/04/20 19:31 Active Treatment] [CONS] Stat Regular Diet [DIET] Diet 08/05/20 Breakfast Active BASIC METABOLIC PANEL,BMP [CHEM] AM Lab 08/05/20 05:11 Ordered CBC WITH AUTO DIFF [HEME] AM Lab 08/05/20 05:11 Ordered MAGNESIUM [CHEM] AM Lab 08/05/20 05:11 Ordered Folic Acid Med 08/05/20 09:00 Active 1 mg PO DAILY LORazepam [Ativan] Med 08/04/20 19:40 Active See Protocol IVPUSH Q4H PRN Pantoprazole [ProTONIX IV] 40 mg Med 08/04/20 20:15 Active Sodium Chloride 0.9% [Normal Saline] 10 ml IV Q24H Phosphorus #1 [Neutra-Phos] Med 08/05/20 09:00 Active 250 mg PO DAILY Sodium Chloride 0.9% [Normal Saline] 1,000 ml Med 08/04/20 20:15 Active IV ASDIRECTED Sodium Chloride 0.9% [Normal Saline] 1,000 ml Med 08/04/20 20:07 Active IV NOW Sodium Chloride 0.9% [Saline Flush] Med 08/04/20 15:42 Active 10 ml FLUSH ASDIRECTED PRN Sodium Chloride 0.9% [Saline Flush] Med 08/04/20 15:42 Active 2.5 ml FLUSH ASDIRECTED PRN Thiamine [Vitamin B-1] Med 08/05/20 09:00 Active 100 mg PO DAILY SCD [Sequential Compression Device] [OM.PC] Stat Oth 08/04/20 20:22 Ordered Saline Lock Insert [OM.PC] Stat Ot 08/04/20 15:42 Ordered Medication Orders Folic Acid (Folic Acid 1 Mg Tab) 1 mg PO DAILY [facility] Sodium Chloride (Normal Saline) 1,000 mls @ 125 mls/hr IV NOW STA Stop: 08/05/20 04:06 Last Admin: 08/04/20 20:14 Dose: 125 mls/hr Documented by: TERRENCE Pantoprazole Sodium 40 mg/ (Sodium Chloride) 10 mls @ 300 mls/hr IV Q24H MARCEL Last Admin: 08/04/20 21:54 Dose: 300 mls/hr Documented by: AARTI Sodium Chloride (Normal Saline) 1,000 mls @ 100 mls/hr IV ASDIRECTED MARCEL Lorazepam (Lorazepam 2 Mg/Ml Sdv) 0 mg IVPUSH Q4H PRN; Protocol PRN Reason: Agitation Sodium Chloride (Sodium Chloride 0.9% 10 Ml Syringe) 10 ml FLUSH ASDIRECTED PRN PRN Reason: Keep Vein Open Last Admin: 08/04/20 16:05 Dose: 10 ml Documented by: Admin: 08/04/20 16:03 Dose: 10 ml Documented by: SON Sodium Chloride (Sodium Chloride 0.9% 2.5 Ml Syringe) 2.5 ml FLUSH ASDIRECTED PRN PRN Reason: Keep Vein Open Sodium Phosphate (Phosphorus #1 250 Mg Tab) 250 mg PO DAILY [facility] Thiamine HCl (Thiamine 100 Mg Tab) 100 mg PO DAILY MARCEL
[2020-08-04] MEDS ORDERED: LORazepam 2 MG/ML SDV IVPUSH PRN (19:40)
[2020-08-04 19:57] LABS: CORONAVIRUS COVID-19 NAA NEGATIVE (NEGATIVE); INFLUENZA A NAA NEGATIVE (NEGATIVE); INFLUENZA B NAA NEGATIVE (NEGATIVE)
[2020-08-04] MEDS ORDERED: Sodium Chloride 0.9% 1,000 ML IV STA (20:07)
[2020-08-04] MEDS: Pantoprazole 40 MG in Sodium Chloride 0.9% 10 ML IV SCH (21:54)
[2020-08-05] MEDS: Sodium Chloride 0.9% 1,000 ML IV SCH ×2 (04:17→14:28)
[2020-08-05] MEDS ORDERED: Ondansetron 4 MG/2 ML SDV IVPUSH PRN (05:57)
[2020-08-05 06:56] LABS: BLOOD UREA NITROGEN,BUN 6 mg/dL (7.0-18.0); CARBON DIOXIDE,CO2 28.3 mmol/L (21.0-32.0); CHLORIDE,CL 99 mmol/L (98-107); GLUCOSE RANDOM 119 mg/dL (74-106); SODIUM,NA 137 mmol/L (136-148)
[2020-08-05 06:58] LABS: POTASSIUM,K 2.4 mmol/L (3.5-5.1)
[2020-08-05] MEDS ORDERED: Potassium Chloride 20 MEQ Tab.ER PO ONE (07:25)
[2020-08-05] MEDS ORDERED: Potassium Chloride Riders 20 MEQ in Premix Bag 1 BAG IV ONE (07:25)
[2020-08-05] MEDS: Folic Acid 1 MG Tab PO SCH (08:42)
[2020-08-05] MEDS: Thiamine 100 MG Tab PO SCH (08:42)
[2020-08-05] MEDS: Phosphorus #1 250 MG Tab PO SCH (08:42)
--- NOTE | 2020-08-05 13:22 | PCM.PN ---
<Kenny Doherty - Last Filed: 08/05/20 13:19> - General Info Date of Service: 08/05/20 Subjective Update: Patient feels fine this morning. Upon questioning he is not sure if he wants to stay for 1 more day. Patient advised to stay for potassium repletion and physical therapy to assess for any gait dysfunction. Patient understands and states that he still might want to go home later on this evening. Patient denies fever, chills, nausea, vomiting, abdominal pain, chest pain, shortness of breath, decrease in station lower extremities. - Review of Systems General: Denies: Fever, Chills Pulmonary: Denies: Shortness of Breath, Cough Cardiovascular: Denies: Chest Pain Gastrointestinal: Denies: Abdominal Pain Neurological: Denies: Confusion, Dizziness Psychiatric: Denies: Confusion - Patient Data Vitals - Most Recent: Last Vital Signs Temp 97.9 F 08/05/20 11:35 Pulse 75 08/05/20 11:35 Resp 14 08/05/20 11:35 BP 108/74 08/05/20 11:35 Pulse Ox 98 08/05/20 11:35 Weight - Most Recent: 72.91 kg I&O - Last 24 Hours: Intake & Output 08/04/20 08/05/20 08/05/20 22:59 06:59 14:59 Intake Total 10 1420 Output Total 200 Balance 10 1220 Lab Results Last 24 Hours: Laboratory Results - last 24 hr 08/04/20 08/04/20 08/04/20 Range/Units 17:36 18:00 18:00 WBC 6.43 (4.0-11.0) K/uL RBC 3.53 L (4.50-5.90) M/uL Hgb 11.8 L (13.0-17.0) g/dL Hct 32.8 L (38.0-50.0) % MCV 92.9 (80.0-98.0) fL MCH 33.4 H (27.0-32.0) pg MCHC 36.0 (31.0-37.0) g/dL RDW Std Deviation 50.5 (28.0-62.0) fl RDW Coeff of Stephane 15 (11.0-15.0) % Plt Count 94 L (150-400) K/uL MPV 10.80 (7.40-12.00) fL Neut % (Auto) 53.6 (48.0-80.0) % Lymph % (Auto) 28.5 (16.0-40.0) % [place] % (Auto) 16.8 H (0.0-15.0) % Eos % (Auto) 0.9 (0.0-7.0) % Baso % (Auto) 0.2 (0.0-1.5) % Neut # (Auto) 3.5 (1.4-5.7) K/uL Lymph # (Auto) 1.8 (0.6-2.4) K/uL [place] # (Auto) 1.1 H (0.0-0.8) K/uL Eos # (Auto) 0.1 (0.0-0.7) K/uL Baso # (Auto) 0.0 (0.0-0.1) K/uL Add Manual Diff Neutrophils % (Manual) (48.0-80.0) % Lymphocytes % (Manual) (16.0-40.0) % Monocytes % (Manual) (0.0-15.0) % Eosinophils % (Manual) (0.0-7.0) % Nucleated RBC % 0.0 /100WBC Absolute Seg Neuts (1.4-5.7) Lymphocytes # (Manual) (0.6-2.4) Monocytes # (Manual) (0.0-0.8) Eosinophils # (Manual) (0.0-0.7) Nucleated RBCs # 0 K/uL INR 1.15 Sodium (136-148) mmol/L Potassium (3.5-5.1) mmol/L Chloride (98-107) mmol/L Carbon Dioxide (21.0-32.0) mmol/L BUN (7.0-18.0) mg/dL Creatinine (0.8-1.3) mg/dL Est Cr Clr Drug Dosing mL/min Estimated GFR (MDRD) ml/min Glucose (74-106) mg/dL Calcium (8.5-10.1) mg/dL Phosphorus (2.6-4.7) mg/dL Magnesium (1.8-2.4) mg/dL Total Bilirubin (0.2-1.0) mg/dL AST (15-37) IU/L ALT (14-63) IU/L Alkaline Phosphatase (46-116) U/L Ammonia (19-54) ug/dL Troponin I (0.000-0.056) ng/mL Total Protein (6.4-8.2) g/dL Albumin (3.4-5.0) g/dL Globulin (2.6-4.0) g/dL Albumin/Globulin Ratio (0.9-1.6) Vitamin B12 (193-986) pg/mL TSH 3rd Generation (0.36-3.74) uIU/mL Urine Color YELLOW Urine Appearance CLEAR Urine pH 5.5 (5.0-8.0) Ur Specific [place] <= 1.005 (1.001-1.035) Urine Protein NEGATIVE (NEGATIVE) mg/dL Urine Glucose (UA) NEGATIVE (NEGATIVE) mg/dL Urine Ketones TRACE H (NEGATIVE) mg/dL Urine Occult Blood NEGATIVE (NEGATIVE) Urine Nitrite NEGATIVE (NEGATIVE) Urine Bilirubin SMALL H (NEGATIVE) Urine Ictotest NEGATIVE Urine Urobilinogen 2.0 H (<2.0) EU/dL Ur Leukocyte Esterase NEGATIVE (NEGATIVE) Ethyl Alcohol mg/dL Influenza Type A RNA (NEGATIVE) Influenza Type B RNA (NEGATIVE) SARS-CoV-2 RNA (EMANI) (NEGATIVE) 08/04/20 08/04/20 08/04/20 Range/Units 18:00 18:00 18:00 WBC (4.0-11.0) K/uL RBC (4.50-5.90) M/uL Hgb (13.0-17.0) g/dL Hct (38.0-50.0) % MCV (80.0-98.0) fL MCH (27.0-32.0) pg MCHC (31.0-37.0) g/dL RDW Std Deviation (28.0-62.0) fl RDW Coeff of Stephane (11.0-15.0) % Plt Count (150-400) K/uL MPV (7.40-12.00) fL Neut % (Auto) (48.0-80.0) % Lymph % (Auto) (16.0-40.0) % [place] % (Auto) (0.0-15.0) % Eos % (Auto) (0.0-7.0) % Baso % (Auto) (0.0-1.5) % Neut # (Auto) (1.4-5.7) K/uL Lymph # (Auto) (0.6-2.4) K/uL [place] # (Auto) (0.0-0.8) K/uL Eos # (Auto) (0.0-0.7) K/uL Baso # (Auto) (0.0-0.1) K/uL Add Manual Diff Neutrophils % (Manual) (48.0-80.0) % Lymphocytes % (Manual) (16.0-40.0) % Monocytes % (Manual) (0.0-15.0) % Eosinophils % (Manual) (0.0-7.0) % Nucleated RBC % /100WBC Absolute Seg Neuts (1.4-5.7) Lymphocytes # (Manual) (0.6-2.4) Monocytes # (Manual) (0.0-0.8) Eosinophils # (Manual) (0.0-0.7) Nucleated RBCs # K/uL INR Sodium 131 L (136-148) mmol/L Potassium 2.6 L (3.5-5.1) mmol/L Chloride 91 L (98-107) mmol/L Carbon Dioxide 31.0 (21.0-32.0) mmol/L BUN 8 (7.0-18.0) mg/dL Creatinine 0.7 L (0.8-1.3) mg/dL Est Cr Clr Drug Dosing 99.90 mL/min Estimated GFR (MDRD) > 60.0 ml/min Glucose 97 (74-106) mg/dL Calcium 8.6 (8.5-10.1) mg/dL Phosphorus (2.6-4.7) mg/dL Magnesium 1.4 L (1.8-2.4) mg/dL Total Bilirubin 1.2 H (0.2-1.0) mg/dL AST 130 H (15-37) IU/L ALT 43 (14-63) IU/L Alkaline Phosphatase 101 (46-116) U/L Ammonia < 17 L (19-54) ug/dL Troponin I < 0.050 (0.000-0.056) ng/mL Total Protein 7.5 (6.4-8.2) g/dL Albumin 3.1 L (3.4-5.0) g/dL Globulin 4.4 H (2.6-4.0) g/dL Albumin/Globulin Ratio 0.7 L (0.9-1.6) Vitamin B12 (193-986) pg/mL TSH 3rd Generation (0.36-3.74) uIU/mL Urine Color Urine Appearance Urine pH (5.0-8.0) Ur Specific [place] (1.001-1.035) Urine Protein (NEGATIVE) mg/dL Urine Glucose (UA) (NEGATIVE) mg/dL Urine Ketones (NEGATIVE) mg/dL Urine Occult Blood (NEGATIVE) Urine Nitrite (NEGATIVE) Urine Bilirubin (NEGATIVE) Urine Ictotest Urine Urobilinogen (<2.0) EU/dL Ur Leukocyte Esterase (NEGATIVE) Ethyl Alcohol < 3.0 mg/dL Influenza Type A RNA (NEGATIVE) Influenza Type B RNA (NEGATIVE) SARS-CoV-2 RNA (EMANI) (NEGATIVE) 08/04/20 08/04/20 08/04/20 Range/Units 18:00 18:00 19:10 WBC (4.0-11.0) K/uL RBC (4.50-5.90) M/uL Hgb (13.0-17.0) g/dL Hct (38.0-50.0) % MCV (80.0-98.0) fL MCH (27.0-32.0) pg MCHC (31.0-37.0) g/dL RDW Std Deviation (28.0-62.0) fl RDW Coeff of Stephane (11.0-15.0) % Plt Count (150-400) K/uL MPV (7.40-12.00) fL Neut % (Auto) (48.0-80.0) % Lymph % (Auto) (16.0-40.0) % [place] % (Auto) (0.0-15.0) % Eos % (Auto) (0.0-7.0) % Baso % (Auto) (0.0-1.5) % Neut # (Auto) (1.4-5.7) K/uL Lymph # (Auto) (0.6-2.4) K/uL [place] # (Auto) (0.0-0.8) K/uL Eos # (Auto) (0.0-0.7) K/uL Baso # (Auto) (0.0-0.1) K/uL Add Manual Diff Neutrophils % (Manual) (48.0-80.0) % Lymphocytes % (Manual) (16.0-40.0) % Monocytes % (Manual) (0.0-15.0) % Eosinophils % (Manual) (0.0-7.0) % Nucleated RBC % /100WBC Absolute Seg Neuts (1.4-5.7) Lymphocytes # (Manual) (0.6-2.4) Monocytes # (Manual) (0.0-0.8) Eosinophils # (Manual) (0.0-0.7) Nucleated RBCs # K/uL INR Sodium (136-148) mmol/L Potassium (3.5-5.1) mmol/L Chloride (98-107) mmol/L Carbon Dioxide (21.0-32.0) mmol/L BUN (7.0-18.0) mg/dL Creatinine (0.8-1.3) mg/dL Est Cr Clr Drug Dosing mL/min Estimated GFR (MDRD) ml/min Glucose (74-106) mg/dL Calcium (8.5-10.1) mg/dL Phosphorus 2.8 (2.6-4.7) mg/dL Magnesium (1.8-2.4) mg/dL Total Bilirubin (0.2-1.0) mg/dL AST (15-37) IU/L ALT (14-63) IU/L Alkaline Phosphatase (46-116) U/L Ammonia (19-54) ug/dL Troponin I (0.000-0.056) ng/mL Total Protein (6.4-8.2) g/dL Albumin (3.4-5.0) g/dL Globulin (2.6-4.0) g/dL Albumin/Globulin Ratio (0.9-1.6) Vitamin B12 1524 H (193-986) pg/mL TSH 3rd Generation 0.45 (0.36-3.74) uIU/mL Urine Color Urine Appearance Urine pH (5.0-8.0) Ur Specific [place] (1.001-1.035) Urine Protein (NEGATIVE) mg/dL Urine Glucose (UA) (NEGATIVE) mg/dL Urine Ketones (NEGATIVE) mg/dL Urine Occult Blood (NEGATIVE) Urine Nitrite (NEGATIVE) Urine Bilirubin (NEGATIVE) Urine Ictotest Urine Urobilinogen (<2.0) EU/dL Ur Leukocyte Esterase (NEGATIVE) Ethyl Alcohol mg/dL Influenza Type A RNA NEGATIVE (NEGATIVE) Influenza Type B RNA NEGATIVE (NEGATIVE) SARS-CoV-2 RNA (EMANI) NEGATIVE (NEGATIVE) 08/05/20 08/05/20 Range/Units 06:25 06:25 WBC 4.99 (4.0-11.0) K/uL RBC 3.36 L (4.50-5.90) M/uL Hgb 11.0 L (13.0-17.0) g/dL Hct 31.2 L (38.0-50.0) % MCV 92.9 (80.0-98.0) fL MCH 32.7 H (27.0-32.0) pg MCHC 35.3 (31.0-37.0) g/dL RDW Std Deviation 50.8 (28.0-62.0) fl RDW Coeff of Stephane 15 (11.0-15.0) % Plt Count 128 L (150-400) K/uL MPV 10.30 (7.40-12.00) fL Neut % (Auto) (48.0-80.0) % Lymph % (Auto) (16.0-40.0) % [place] % (Auto) (0.0-15.0) % Eos % (Auto) (0.0-7.0) % Baso % (Auto) (0.0-1.5) % Neut # (Auto) (1.4-5.7) K/uL Lymph # (Auto) (0.6-2.4) K/uL [place] # (Auto) (0.0-0.8) K/uL Eos # (Auto) (0.0-0.7) K/uL Baso # (Auto) (0.0-0.1) K/uL Add Manual Diff YES Neutrophils % (Manual) 47 L (48.0-80.0) % Lymphocytes % (Manual) 32 (16.0-40.0) % Monocytes % (Manual) 20 H (0.0-15.0) % Eosinophils % (Manual) 1 (0.0-7.0) % Nucleated RBC % 0.0 /100WBC Absolute Seg Neuts 2.3 (1.4-5.7) Lymphocytes # (Manual) 1.6 (0.6-2.4) Monocytes # (Manual) 1.0 H (0.0-0.8) Eosinophils # (Manual) 0.0 (0.0-0.7) Nucleated RBCs # 0 K/uL INR Sodium 137 (136-148) mmol/L Potassium 2.4 L* (3.5-5.1) mmol/L Chloride 99 (98-107) mmol/L Carbon Dioxide 28.3 (21.0-32.0) mmol/L BUN 6 L (7.0-18.0) mg/dL Creatinine 0.7 L (0.8-1.3) mg/dL Est Cr Clr Drug Dosing 103.81 mL/min Estimated GFR (MDRD) > 60.0 ml/min Glucose 119 H (74-106) mg/dL Calcium 8.5 (8.5-10.1) mg/dL Phosphorus (2.6-4.7) mg/dL Magnesium 2.0 (1.8-2.4) mg/dL Total Bilirubin (0.2-1.0) mg/dL AST (15-37) IU/L ALT (14-63) IU/L Alkaline Phosphatase (46-116) U/L Ammonia (19-54) ug/dL Troponin I (0.000-0.056) ng/mL Total Protein (6.4-8.2) g/dL Albumin (3.4-5.0) g/dL Globulin (2.6-4.0) g/dL Albumin/Globulin Ratio (0.9-1.6) Vitamin B12 (193-986) pg/mL TSH 3rd Generation (0.36-3.74) uIU/mL Urine Color Urine Appearance Urine pH (5.0-8.0) Ur Specific [place] (1.001-1.035) Urine Protein (NEGATIVE) mg/dL Urine Glucose (UA) (NEGATIVE) mg/dL Urine Ketones (NEGATIVE) mg/dL Urine Occult Blood (NEGATIVE) Urine Nitrite (NEGATIVE) Urine Bilirubin (NEGATIVE) Urine Ictotest Urine Urobilinogen (<2.0) EU/dL Ur Leukocyte Esterase (NEGATIVE) Ethyl Alcohol mg/dL Influenza Type A RNA (NEGATIVE) Influenza Type B RNA (NEGATIVE) SARS-CoV-2 RNA (EMANI) (NEGATIVE) Med Orders - Current: Current Medications Folic Acid (Folic Acid 1 Mg Tab) 1 mg PO DAILY [facility] Last Admin: 08/05/20 08:42 Dose: 1 mg Documented by: Pantoprazole Sodium 40 mg/ (Sodium Chloride) 10 mls @ 300 mls/hr IV Q24H [facility] Last Admin: 08/04/20 21:54 Dose: 300 mls/hr Documented by: Sodium Chloride (Normal Saline) 1,000 mls @ 100 mls/hr IV ASDIRECTED [facility] Last Admin: 08/05/20 04:17 Dose: 100 mls/hr Documented by: Lorazepam (Lorazepam 2 Mg/Ml Sdv) 0 mg IVPUSH Q4H PRN; Protocol PRN Reason: Agitation Ondansetron HCl (Ondansetron 4 Mg/2 Ml Sdv) 4 mg IVPUSH Q4H PRN PRN Reason: Nausea/Vomiting Sodium Chloride (Sodium Chloride 0.9% 10 Ml Syringe) 10 ml FLUSH ASDIRECTED PRN PRN Reason: Keep Vein Open Last Admin: 08/04/20 16:05 Dose: 10 ml Documented by: Sodium Chloride (Sodium Chloride 0.9% 2.5 Ml Syringe) 2.5 ml FLUSH ASDIRECTED PRN PRN Reason: Keep Vein Open Sodium Phosphate (Phosphorus #1 250 Mg Tab) 250 mg PO DAILY [facility] Last Admin: 08/05/20 08:42 Dose: 250 mg Documented by: Thiamine HCl (Thiamine 100 Mg Tab) 100 mg PO DAILY [facility] Last Admin: 08/05/20 08:42 Dose: 100 mg Documented by: Discontinued Medications Multivitamins/Minerals 10 ml/Thiamine HCl 100 mg/ Folic Acid 1 mg/ Sodium Chloride 1,011.2 mls @ 999 mls/hr IV ONETIME ONE Stop: 08/04/20 16:42 Last Admin: 08/04/20 16:01 Dose: 999 mls/hr Documented by: Potassium Chloride 40 meq/ (Premix) 100 mls @ 25 mls/hr IV ONETIME ONE Stop: 08/04/20 22:39 Last Admin: 08/04/20 20:17 Dose: 25 mls/hr Documented by: Magnesium Sulfate 4 gm/ Premix 100 mls @ 25 mls/hr IV ONETIME ONE Stop: 08/04/20 22:39 Last Admin: 08/04/20 19:24 Dose: 25 mls/hr Documented by: Sodium Chloride (Normal Saline) 1,000 mls @ 125 mls/hr IV NOW STA Stop: 08/05/20 04:06 Last Admin: 08/04/20 20:14 Dose: 125 mls/hr Documented by: Potassium Chloride 20 meq/ (Premix) 50 mls @ 25 mls/hr IV ONETIME ONE Stop: 08/05/20 09:24 Last Admin: 08/05/20 09:23 Dose: 25 mls/hr Documented by: Potassium Chloride (Potassium Chloride 20 Meq Tab.Er) 40 meq PO ONETIME ONE Stop: 08/05/20 07:26 Last Admin: 08/05/20 08:42 Dose: 40 meq Documented by: - Exam General: Alert, Oriented Lungs: Clear to Auscultation, Normal Respiratory Effort Cardiovascular: Regular Rate, Regular Rhythm GI/Abdominal Exam: Normal Bowel Sounds, Soft, Non-Tender Extremities: No Pedal Edema Psy/Mental Status: Alert - Patient Data Lab Results Last 24 hrs: Laboratory Results - last 24 hr 08/04/20 08/04/20 08/04/20 Range/Units 17:36 18:00 18:00 WBC 6.43 (4.0-11.0) K/uL RBC 3.53 L (4.50-5.90) M/uL Hgb 11.8 L (13.0-17.0) g/dL Hct 32.8 L (38.0-50.0) % MCV 92.9 (80.0-98.0) fL MCH 33.4 H (27.0-32.0) pg MCHC 36.0 (31.0-37.0) g/dL RDW Std Deviation 50.5 (28.0-62.0) fl RDW Coeff of Stephane 15 (11.0-15.0) % Plt Count 94 L (150-400) K/uL MPV 10.80 (7.40-12.00) fL Neut % (Auto) 53.6 (48.0-80.0) % Lymph % (Auto) 28.5 (16.0-40.0) % [place] % (Auto) 16.8 H (0.0-15.0) % Eos % (Auto) 0.9 (0.0-7.0) % Baso % (Auto) 0.2 (0.0-1.5) % Neut # (Auto) 3.5 (1.4-5.7) K/uL Lymph # (Auto) 1.8 (0.6-2.4) K/uL [place] # (Auto) 1.1 H (0.0-0.8) K/uL Eos # (Auto) 0.1 (0.0-0.7) K/uL Baso # (Auto) 0.0 (0.0-0.1) K/uL Add Manual Diff Neutrophils % (Manual) (48.0-80.0) % Lymphocytes % (Manual) (16.0-40.0) % Monocytes % (Manual) (0.0-15.0) % Eosinophils % (Manual) (0.0-7.0) % Nucleated RBC % 0.0 /100WBC Absolute Seg Neuts (1.4-5.7) Lymphocytes # (Manual) (0.6-2.4) Monocytes # (Manual) (0.0-0.8) Eosinophils # (Manual) (0.0-0.7) Nucleated RBCs # 0 K/uL INR 1.15 Sodium (136-148) mmol/L Potassium (3.5-5.1) mmol/L Chloride (98-107) mmol/L Carbon Dioxide (21.0-32.0) mmol/L BUN (7.0-18.0) mg/dL Creatinine (0.8-1.3) mg/dL Est Cr Clr Drug Dosing mL/min Estimated GFR (MDRD) ml/min Glucose (74-106) mg/dL Calcium (8.5-10.1) mg/dL Phosphorus (2.6-4.7) mg/dL Magnesium (1.8-2.4) mg/dL Total Bilirubin (0.2-1.0) mg/dL AST (15-37) IU/L ALT (14-63) IU/L Alkaline Phosphatase (46-116) U/L Ammonia (19-54) ug/dL Troponin I (0.000-0.056) ng/mL Total Protein (6.4-8.2) g/dL Albumin (3.4-5.0) g/dL Globulin (2.6-4.0) g/dL Albumin/Globulin Ratio (0.9-1.6) Vitamin B12 (193-986) pg/mL TSH 3rd Generation (0.36-3.74) uIU/mL Urine Color YELLOW Urine Appearance CLEAR Urine pH 5.5 (5.0-8.0) Ur Specific [place] <= 1.005 (1.001-1.035) Urine Protein NEGATIVE (NEGATIVE) mg/dL Urine Glucose (UA) NEGATIVE (NEGATIVE) mg/dL Urine Ketones TRACE H (NEGATIVE) mg/dL Urine Occult Blood NEGATIVE (NEGATIVE) Urine Nitrite NEGATIVE (NEGATIVE) Urine Bilirubin SMALL H (NEGATIVE) Urine Ictotest NEGATIVE Urine Urobilinogen 2.0 H (<2.0) EU/dL Ur Leukocyte Esterase NEGATIVE (NEGATIVE) Ethyl Alcohol mg/dL Influenza Type A RNA (NEGATIVE) Influenza Type B RNA (NEGATIVE) SARS-CoV-2 RNA (EMANI) (NEGATIVE) 08/04/20 08/04/20 08/04/20 Range/Units 18:00 18:00 18:00 WBC (4.0-11.0) K/uL RBC (4.50-5.90) M/uL Hgb (13.0-17.0) g/dL Hct (38.0-50.0) % MCV (80.0-98.0) fL MCH (27.0-32.0) pg MCHC (31.0-37.0) g/dL RDW Std Deviation (28.0-62.0) fl RDW Coeff of Stephane (11.0-15.0) % Plt Count (150-400) K/uL MPV (7.40-12.00) fL Neut % (Auto) (48.0-80.0) % Lymph % (Auto) (16.0-40.0) % [place] % (Auto) (0.0-15.0) % Eos % (Auto) (0.0-7.0) % Baso % (Auto) (0.0-1.5) % Neut # (Auto) (1.4-5.7) K/uL Lymph # (Auto) (0.6-2.4) K/uL [place] # (Auto) (0.0-0.8) K/uL Eos # (Auto) (0.0-0.7) K/uL Baso # (Auto) (0.0-0.1) K/uL Add Manual Diff Neutrophils % (Manual) (48.0-80.0) % Lymphocytes % (Manual) (16.0-40.0) % Monocytes % (Manual) (0.0-15.0) % Eosinophils % (Manual) (0.0-7.0) % Nucleated RBC % /100WBC Absolute Seg Neuts (1.4-5.7) Lymphocytes # (Manual) (0.6-2.4) Monocytes # (Manual) (0.0-0.8) Eosinophils # (Manual) (0.0-0.7) Nucleated RBCs # K/uL INR Sodium 131 L (136-148) mmol/L Potassium 2.6 L (3.5-5.1) mmol/L Chloride 91 L (98-107) mmol/L Carbon Dioxide 31.0 (21.0-32.0) mmol/L BUN 8 (7.0-18.0) mg/dL Creatinine 0.7 L (0.8-1.3) mg/dL Est Cr Clr Drug Dosing 99.90 mL/min Estimated GFR (MDRD) > 60.0 ml/min Glucose 97 (74-106) mg/dL Calcium 8.6 (8.5-10.1) mg/dL Phosphorus (2.6-4.7) mg/dL Magnesium 1.4 L (1.8-2.4) mg/dL Total Bilirubin 1.2 H (0.2-1.0) mg/dL AST 130 H (15-37) IU/L ALT 43 (14-63) IU/L Alkaline Phosphatase 101 (46-116) U/L Ammonia < 17 L (19-54) ug/dL Troponin I < 0.050 (0.000-0.056) ng/mL Total Protein 7.5 (6.4-8.2) g/dL Albumin 3.1 L (3.4-5.0) g/dL Globulin 4.4 H (2.6-4.0) g/dL Albumin/Globulin Ratio 0.7 L (0.9-1.6) Vitamin B12 (193-986) pg/mL TSH 3rd Generation (0.36-3.74) uIU/mL Urine Color Urine Appearance Urine pH (5.0-8.0) Ur Specific [place] (1.001-1.035) Urine Protein (NEGATIVE) mg/dL Urine Glucose (UA) (NEGATIVE) mg/dL Urine Ketones (NEGATIVE) mg/dL Urine Occult Blood (NEGATIVE) Urine Nitrite (NEGATIVE) Urine Bilirubin (NEGATIVE) Urine Ictotest Urine Urobilinogen (<2.0) EU/dL Ur Leukocyte Esterase (NEGATIVE) Ethyl Alcohol < 3.0 mg/dL Influenza Type A RNA (NEGATIVE) Influenza Type B RNA (NEGATIVE) SARS-CoV-2 RNA (EMANI) (NEGATIVE) 08/04/20 08/04/20 08/04/20 Range/Units 18:00 18:00 19:10 WBC (4.0-11.0) K/uL RBC (4.50-5.90) M/uL Hgb (13.0-17.0) g/dL Hct (38.0-50.0) % MCV (80.0-98.0) fL MCH (27.0-32.0) pg MCHC (31.0-37.0) g/dL RDW Std Deviation (28.0-62.0) fl RDW Coeff of Stephane (11.0-15.0) % Plt Count (150-400) K/uL MPV (7.40-12.00) fL Neut % (Auto) (48.0-80.0) % Lymph % (Auto) (16.0-40.0) % [place] % (Auto) (0.0-15.0) % Eos % (Auto) (0.0-7.0) % Baso % (Auto) (0.0-1.5) % Neut # (Auto) (1.4-5.7) K/uL Lymph # (Auto) (0.6-2.4) K/uL [place] # (Auto) (0.0-0.8) K/uL Eos # (Auto) (0.0-0.7) K/uL Baso # (Auto) (0.0-0.1) K/uL Add Manual Diff Neutrophils % (Manual) (48.0-80.0) % Lymphocytes % (Manual) (16.0-40.0) % Monocytes % (Manual) (0.0-15.0) % Eosinophils % (Manual) (0.0-7.0) % Nucleated RBC % /100WBC Absolute Seg Neuts (1.4-5.7) Lymphocytes # (Manual) (0.6-2.4) Monocytes # (Manual) (0.0-0.8) Eosinophils # (Manual) (0.0-0.7) Nucleated RBCs # K/uL INR Sodium (136-148) mmol/L Potassium (3.5-5.1) mmol/L Chloride (98-107) mmol/L Carbon Dioxide (21.0-32.0) mmol/L BUN (7.0-18.0) mg/dL Creatinine (0.8-1.3) mg/dL Est Cr Clr Drug Dosing mL/min Estimated GFR (MDRD) ml/min Glucose (74-106) mg/dL Calcium (8.5-10.1) mg/dL Phosphorus 2.8 (2.6-4.7) mg/dL Magnesium (1.8-2.4) mg/dL Total Bilirubin (0.2-1.0) mg/dL AST (15-37) IU/L ALT (14-63) IU/L Alkaline Phosphatase (46-116) U/L Ammonia (19-54) ug/dL Troponin I (0.000-0.056) ng/mL Total Protein (6.4-8.2) g/dL Albumin (3.4-5.0) g/dL Globulin (2.6-4.0) g/dL Albumin/Globulin Ratio (0.9-1.6) Vitamin B12 1524 H (193-986) pg/mL TSH 3rd Generation 0.45 (0.36-3.74) uIU/mL Urine Color Urine Appearance Urine pH (5.0-8.0) Ur Specific [place] (1.001-1.035) Urine Protein (NEGATIVE) mg/dL Urine Glucose (UA) (NEGATIVE) mg/dL Urine Ketones (NEGATIVE) mg/dL Urine Occult Blood (NEGATIVE) Urine Nitrite (NEGATIVE) Urine Bilirubin (NEGATIVE) Urine Ictotest Urine Urobilinogen (<2.0) EU/dL Ur Leukocyte Esterase (NEGATIVE) Ethyl Alcohol mg/dL Influenza Type A RNA NEGATIVE (NEGATIVE) Influenza Type B RNA NEGATIVE (NEGATIVE) SARS-CoV-2 RNA (EMANI) NEGATIVE (NEGATIVE) 08/05/20 08/05/20 Range/Units 06:25 06:25 WBC 4.99 (4.0-11.0) K/uL RBC 3.36 L (4.50-5.90) M/uL Hgb 11.0 L (13.0-17.0) g/dL Hct 31.2 L (38.0-50.0) % MCV 92.9 (80.0-98.0) fL MCH 32.7 H (27.0-32.0) pg MCHC 35.3 (31.0-37.0) g/dL RDW Std Deviation 50.8 (28.0-62.0) fl RDW Coeff of Stephane 15 (11.0-15.0) % Plt Count 128 L (150-400) K/uL MPV 10.30 (7.40-12.00) fL Neut % (Auto) (48.0-80.0) % Lymph % (Auto) (16.0-40.0) % [place] % (Auto) (0.0-15.0) % Eos % (Auto) (0.0-7.0) % Baso % (Auto) (0.0-1.5) % Neut # (Auto) (1.4-5.7) K/uL Lymph # (Auto) (0.6-2.4) K/uL [place] # (Auto) (0.0-0.8) K/uL Eos # (Auto) (0.0-0.7) K/uL Baso # (Auto) (0.0-0.1) K/uL Add Manual Diff YES Neutrophils % (Manual) 47 L (48.0-80.0) % Lymphocytes % (Manual) 32 (16.0-40.0) % Monocytes % (Manual) 20 H (0.0-15.0) % Eosinophils % (Manual) 1 (0.0-7.0) % Nucleated RBC % 0.0 /100WBC Absolute Seg Neuts 2.3 (1.4-5.7) Lymphocytes # (Manual) 1.6 (0.6-2.4) Monocytes # (Manual) 1.0 H (0.0-0.8) Eosinophils # (Manual) 0.0 (0.0-0.7) Nucleated RBCs # 0 K/uL INR Sodium 137 (136-148) mmol/L Potassium 2.4 L* (3.5-5.1) mmol/L Chloride 99 (98-107) mmol/L Carbon Dioxide 28.3 (21.0-32.0) mmol/L BUN 6 L (7.0-18.0) mg/dL Creatinine 0.7 L (0.8-1.3) mg/dL Est Cr Clr Drug Dosing 103.81 mL/min Estimated GFR (MDRD) > 60.0 ml/min Glucose 119 H (74-106) mg/dL Calcium 8.5 (8.5-10.1) mg/dL Phosphorus (2.6-4.7) mg/dL Magnesium 2.0 (1.8-2.4) mg/dL Total Bilirubin (0.2-1.0) mg/dL AST (15-37) IU/L ALT (14-63) IU/L Alkaline Phosphatase (46-116) U/L Ammonia (19-54) ug/dL Troponin I (0.000-0.056) ng/mL Total Protein (6.4-8.2) g/dL Albumin (3.4-5.0) g/dL Globulin (2.6-4.0) g/dL Albumin/Globulin Ratio (0.9-1.6) Vitamin B12 (193-986) pg/mL TSH 3rd Generation (0.36-3.74) uIU/mL Urine Color Urine Appearance Urine pH (5.0-8.0) Ur Specific [place] (1.001-1.035) Urine Protein (NEGATIVE) mg/dL Urine Glucose (UA) (NEGATIVE) mg/dL Urine Ketones (NEGATIVE) mg/dL Urine Occult Blood (NEGATIVE) Urine Nitrite (NEGATIVE) Urine Bilirubin (NEGATIVE) Urine Ictotest Urine Urobilinogen (<2.0) EU/dL Ur Leukocyte Esterase (NEGATIVE) Ethyl Alcohol mg/dL Influenza Type A RNA (NEGATIVE) Influenza Type B RNA (NEGATIVE) SARS-CoV-2 RNA (EMANI) (NEGATIVE) Result Diagrams: 08/05/20 06:25 08/05/20 06:25 Sepsis Event Note - Evaluation Sepsis Screening Result: No Definite Risk - Focused Exam Vital Signs: Vital Signs Temp Pulse Resp BP Pulse Ox 08/05/20 11:35 97.9 F 75 14 108/74 98 08/05/20 07:36 99.3 F 81 14 121/79 99 08/05/20 03:58 98 F 76 14 122/78 98 - Problem List & Annotations (1) Hypokalemia SNOMED Code(s): 09461314 Code(s): E87.6 - HYPOKALEMIA Status: Acute Current Visit: Yes (2) Weakness SNOMED Code(s): 52060867 Code(s): R53.1 - WEAKNESS Status: Acute Current Visit: Yes (3) Elevated liver enzymes SNOMED Code(s): 414757417 Code(s): R74.8 - ABNORMAL LEVELS OF OTHER SERUM ENZYMES Status: Acute Current Visit: No (4) Hypomagnesemia SNOMED Code(s): 941091602 Code(s): E83.42 - HYPOMAGNESEMIA Status: Acute Current Visit: No (5) Thrombocytopenia SNOMED Code(s): 853900597 Code(s): D69.6 - THROMBOCYTOPENIA, UNSPECIFIED Status: Chronic Priority: High Current Visit: No - Problem List Review Problem List Initiated/Reviewed/Updated: Yes - My Orders Last 24 Hours: My Active Orders 08/04/20 19:27 Oxygen Therapy [RC] PRN VTE/DVT Education [RC] DAILY Vital Signs [RC] Q4H 08/04/20 19:31 Consult to Physical Therapy [PT Evaluation and Treatment] [CONS] Stat 08/04/20 19:40 LORazepam [Ativan] See Protocol IVPUSH Q4H PRN 08/04/20 20:15 Pantoprazole [ProTONIX IV] 40 mg Sodium Chloride 0.9% [Normal Saline] 10 ml IV Q24H Sodium Chloride 0.9% [Normal Saline] 1,000 ml IV ASDIRECTED 08/04/20 20:22 Antiembolic Devices [RC] Q12H SCD [Sequential Compression Device] [OM.PC] Stat 08/05/20 Breakfast Regular Diet [DIET] 08/05/20 09:00 Folic Acid 1 mg PO DAILY Phosphorus #1 [Neutra-Phos] 250 mg PO DAILY Thiamine [Vitamin B-1] 100 mg PO DAILY 08/05/20 12:41 Code Status [Resuscitation Status] Routine 08/05/20 13:00 BASIC METABOLIC PANEL,BMP [CHEM] Routine - Plan Plan:: Generalized weaknessPT consult for ambulation and strengthening. Replace electrolytes, IV fluids PRN, encourage p.o. food intake. History of alcohol abuse abuse/withdrawal-patient has a history of alcohol abuse withdrawal. CIWA protocol with Ativan as needed, continue thiamine and folic acid. Hypokalemia- PO 40meq K+ and 20meq K+ riders given. Will recheck BMP at 1pm and add additional K+ if needed Transaminitis and thrombocytopenia- Likely secondary to alcohol abuse, monitor AM labs SCD due to low platelet count, regular diet, protonix <Angelica Keita - Last Filed: 08/06/20 12:46> - Patient Data Vitals - Most Recent: Last Vital Signs Temp 37.2 C 08/06/20 08:00 Pulse 77 08/06/20 08:00 Resp 16 08/06/20 08:00 BP 130/83 08/06/20 08:00 Pulse Ox 98 08/06/20 08:00 I&O - Last 24 Hours: Intake & Output 08/05/20 08/06/20 08/06/20 22:59 06:59 14:59 Intake Total 2144 2059 Output Total 550 880 Balance 1594 1179 Lab Results Last 24 Hours: Laboratory Results - last 24 hr 08/05/20 08/06/20 08/06/20 Range/Units 13:30 05:33 05:33 WBC 6.25 (4.0-11.0) K/uL RBC 2.94 L (4.50-5.90) M/uL Hgb 9.7 L (13.0-17.0) g/dL Hct 27.7 L (38.0-50.0) % MCV 94.2 (80.0-98.0) fL MCH 33.0 H (27.0-32.0) pg MCHC 35.0 (31.0-37.0) g/dL RDW Std Deviation 52.4 (28.0-62.0) fl RDW Coeff of Stephane 15 (11.0-15.0) % Plt Count 170 (150-400) K/uL MPV 10.40 (7.40-12.00) fL Add Manual Diff YES Neutrophils % (Manual) 44 L (48.0-80.0) % Band Neutrophils % 1 % Lymphocytes % (Manual) 38 (16.0-40.0) % Monocytes % (Manual) 13 (0.0-15.0) % Eosinophils % (Manual) 2 (0.0-7.0) % Basophils % (Manual) 2 H (0.0-1.5) % Nucleated RBC % 0.0 /100WBC Absolute Seg Neuts 2.8 (1.4-5.7) Band Neutrophils # 0.1 Lymphocytes # (Manual) 2.4 (0.6-2.4) Monocytes # (Manual) 0.8 (0.0-0.8) Eosinophils # (Manual) 0.1 (0.0-0.7) Basophils # (Manual) 0.1 (0.0-0.1) Nucleated RBCs # 0 K/uL Sodium 138 139 (136-148) mmol/L Potassium 3.3 L 3.0 L (3.5-5.1) mmol/L Chloride 100 103 (98-107) mmol/L Carbon Dioxide 28.9 27.5 (21.0-32.0) mmol/L BUN 6 L 4 L (7.0-18.0) mg/dL Creatinine 0.6 L 0.6 L (0.8-1.3) mg/dL Est Cr Clr Drug Dosing 121.11 114.61 mL/min Estimated GFR (MDRD) > 60.0 > 60.0 ml/min Glucose 118 H 124 H (74-106) mg/dL Calcium 8.3 L 8.1 L (8.5-10.1) mg/dL Magnesium 1.4 L (1.8-2.4) mg/dL Med Orders - Current: Current Medications Folic Acid (Folic Acid 1 Mg Tab) 1 mg PO DAILY [facility] Last Admin: 08/06/20 08:59 Dose: 1 mg Documented by: Pantoprazole Sodium 40 mg/ (Sodium Chloride) 10 mls @ 300 mls/hr IV Q24H [facility] Last Admin: 08/05/20 19:54 Dose: 300 mls/hr Documented by: Sodium Chloride (Normal Saline) 1,000 mls @ 100 mls/hr IV ASDIRECTED [facility] Last Admin: 08/06/20 00:14 Dose: 100 mls/hr Documented by: Potassium Chloride/Sodium Chloride (Normal Saline With 40 Meq Kcl) 1,000 mls @ 250 mls/hr IV ONETIME ONE Stop: 08/06/20 13:29 Last Admin: 08/06/20 09:48 Dose: 250 mls/hr Documented by: Lorazepam (Lorazepam 2 Mg/Ml Sdv) 0 mg IVPUSH Q4H PRN; Protocol PRN Reason: Agitation Magnesium Oxide (Magnesium Oxide 400 Mg Tab) 400 mg PO DAILY [facility] Ondansetron HCl (Ondansetron 4 Mg/2 Ml Sdv) 4 mg IVPUSH Q4H PRN PRN Reason: Nausea/Vomiting Sodium Chloride (Sodium Chloride 0.9% 10 Ml Syringe) 10 ml FLUSH ASDIRECTED PRN PRN Reason: Keep Vein Open Last Admin: 08/04/20 16:05 Dose: 10 ml Documented by: Sodium Chloride (Sodium Chloride 0.9% 2.5 Ml Syringe) 2.5 ml FLUSH ASDIRECTED PRN PRN Reason: Keep Vein Open Sodium Phosphate (Phosphorus #1 250 Mg Tab) 250 mg PO DAILY [facility] Last Admin: 08/06/20 08:59 Dose: 250 mg Documented by: Thiamine HCl (Thiamine 100 Mg Tab) 100 mg PO DAILY [facility] Last Admin: 08/06/20 09:01 Dose: 100 mg Documented by: Discontinued Medications Multivitamins/Minerals 10 ml/Thiamine HCl 100 mg/ Folic Acid 1 mg/ Sodium Chloride 1,011.2 mls @ 999 mls/hr IV ONETIME ONE Stop: 08/04/20 16:42 Last Admin: 08/04/20 16:01 Dose: 999 mls/hr Documented by: Potassium Chloride 40 meq/ (Premix) 100 mls @ 25 mls/hr IV ONETIME ONE Stop: 08/04/20 22:39 Last Admin: 08/04/20 20:17 Dose: 25 mls/hr Documented by: Magnesium Sulfate 4 gm/ Premix 100 mls @ 25 mls/hr IV ONETIME ONE Stop: 08/04/20 22:39 Last Admin: 08/04/20 19:24 Dose: 25 mls/hr Documented by: Sodium Chloride (Normal Saline) 1,000 mls @ 125 mls/hr IV NOW STA Stop: 08/05/20 04:06 Last Admin: 08/04/20 20:14 Dose: 125 mls/hr Documented by: Potassium Chloride 20 meq/ (Premix) 50 mls @ 25 mls/hr IV ONETIME ONE Stop: 08/05/20 09:24 Last Admin: 08/05/20 09:23 Dose: 25 mls/hr Documented by: Potassium Chloride 20 meq/ (Premix) 50 mls @ 25 mls/hr IV Q2H [facility] Stop: 08/05/20 16:15 Last Admin: 08/05/20 15:02 Dose: 25 mls/hr Documented by: Magnesium Sulfate (Magnesium Sulfate In Water 4 Gm/100 Ml) 4 gm in 100 mls @ 50 mls/hr IV ONETIME ONE Stop: 08/06/20 11:29 Last Admin: 08/06/20 09:52 Dose: 50 mls/hr Documented by: Potassium Chloride (Potassium Chloride 20 Meq Tab.Er) 40 meq PO ONETIME ONE Stop: 08/05/20 07:26 Last Admin: 08/05/20 08:42 Dose: 40 meq Documented by: - Patient Data Lab Results Last 24 hrs: Laboratory Results - last 24 hr 08/05/20 08/06/20 08/06/20 Range/Units 13:30 05:33 05:33 WBC 6.25 (4.0-11.0) K/uL RBC 2.94 L (4.50-5.90) M/uL Hgb 9.7 L (13.0-17.0) g/dL Hct 27.7 L (38.0-50.0) % MCV 94.2 (80.0-98.0) fL MCH 33.0 H (27.0-32.0) pg MCHC 35.0 (31.0-37.0) g/dL RDW Std Deviation 52.4 (28.0-62.0) fl RDW Coeff of Stephane 15 (11.0-15.0) % Plt Count 170 (150-400) K/uL MPV 10.40 (7.40-12.00) fL Add Manual Diff YES Neutrophils % (Manual) 44 L (48.0-80.0) % Band Neutrophils % 1 % Lymphocytes % (Manual) 38 (16.0-40.0) % Monocytes % (Manual) 13 (0.0-15.0) % Eosinophils % (Manual) 2 (0.0-7.0) % Basophils % (Manual) 2 H (0.0-1.5) % Nucleated RBC % 0.0 /100WBC Absolute Seg Neuts 2.8 (1.4-5.7) Band Neutrophils # 0.1 Lymphocytes # (Manual) 2.4 (0.6-2.4) Monocytes # (Manual) 0.8 (0.0-0.8) Eosinophils # (Manual) 0.1 (0.0-0.7) Basophils # (Manual) 0.1 (0.0-0.1) Nucleated RBCs # 0 K/uL Sodium 138 139 (136-148) mmol/L Potassium 3.3 L 3.0 L (3.5-5.1) mmol/L Chloride 100 103 (98-107) mmol/L Carbon Dioxide 28.9 27.5 (21.0-32.0) mmol/L BUN 6 L 4 L (7.0-18.0) mg/dL Creatinine 0.6 L 0.6 L (0.8-1.3) mg/dL Est Cr Clr Drug Dosing 121.11 114.61 mL/min Estimated GFR (MDRD) > 60.0 > 60.0 ml/min Glucose 118 H 124 H (74-106) mg/dL Calcium 8.3 L 8.1 L (8.5-10.1) mg/dL Magnesium 1.4 L (1.8-2.4) mg/dL Result Diagrams: 08/06/20 05:33 08/06/20 05:33 Sepsis Event Note - Focused Exam Vital Signs: Vital Signs Temp Pulse Resp BP Pulse Ox 08/06/20 08:00 37.2 C 77 16 130/83 98 08/06/20 03:35 37.2 C 77 14 125/80 98 - Problem List & Annotations (1) Hypomagnesemia SNOMED Code(s): 617889524 Code(s): E83.42 - HYPOMAGNESEMIA Status: Acute Current Visit: Yes (2) Hypokalemia SNOMED Code(s): 88990945 Code(s): E87.6 - HYPOKALEMIA Status: Acute Current Visit: Yes (3) Weakness SNOMED Code(s): 80969098 Code(s): R53.1 - WEAKNESS Status: Acute Current Visit: Yes (4) Ataxia SNOMED Code(s): 23925505 Code(s): R27.0 - ATAXIA, UNSPECIFIED Status: Acute Current Visit: No (5) Malnutrition SNOMED Code(s): 41468645 Code(s): E46 - UNSPECIFIED PROTEIN-CALORIE MALNUTRITION Status: Acute Current Visit: No Qualifiers: Malnutrition type: protein-calorie malnutrition Protein-calorie malnut rition severity: mild Qualified Code(s): E44.1 - Mild protein-calorie malnutrition (6) Hypokalemia SNOMED Code(s): 72886020 Code(s): E87.6 - HYPOKALEMIA Status: Resolved Current Visit: No - My Orders Last 24 Hours: My Active Orders 08/05/20 19:58 Out of Bed [RC] Q8HR 08/06/20 09:30 Sodium Chloride 0.9% with KCl [Normal Saline with 40 mEq KCl] 1,000 ml IV ONETIME 08/06/20 21:00 Magnesium Oxide 400 mg PO DAILY - Plan Plan:: I have seen and evaluated the patient and agree with the residents note unless specified in my note
[2020-08-05 14:04] LABS: BLOOD UREA NITROGEN,BUN 6 mg/dL (7.0-18.0); CARBON DIOXIDE,CO2 28.9 mmol/L (21.0-32.0); CHLORIDE,CL 100 mmol/L (98-107); GLUCOSE RANDOM 118 mg/dL (74-106); POTASSIUM,K 3.3 mmol/L (3.5-5.1); SODIUM,NA 138 mmol/L (136-148)
[2020-08-05] MEDS ORDERED: Potassium Chloride Riders 20 MEQ in Premix Bag 1 BAG IV SCH (14:16)
[2020-08-05] MEDS: Pantoprazole 40 MG in Sodium Chloride 0.9% 10 ML IV SCH (19:54)
[2020-08-06] MEDS: Sodium Chloride 0.9% 1,000 ML IV SCH ×2 (00:14→14:32)
[2020-08-06 06:23] LABS: BLOOD UREA NITROGEN,BUN 4 mg/dL (7.0-18.0); CARBON DIOXIDE,CO2 27.5 mmol/L (21.0-32.0); CHLORIDE,CL 103 mmol/L (98-107); GLUCOSE RANDOM 124 mg/dL (74-106); SODIUM,NA 139 mmol/L (136-148)
[2020-08-06] MEDS: Folic Acid 1 MG Tab PO SCH (08:59)
[2020-08-06] MEDS: Phosphorus #1 250 MG Tab PO SCH (08:59)
[2020-08-06] MEDS: Thiamine 100 MG Tab PO SCH (09:01)
[2020-08-06] MEDS ORDERED: Potassium Chloride Riders 40 MEQ in Premix Bag 1 BAG IV ONE (09:17)
[2020-08-06] MEDS ORDERED: Magnesium Sulfate/Water 4 GM/100 ML BAG IV ONE (09:30)
[2020-08-06] MEDS ORDERED: Sodium Chloride 0.9% with KCl 1,000 ML IV ONE (09:30)
--- NOTE | 2020-08-06 12:46 | PCM.PN ---
- General Info Date of Service: 08/06/20 Admission Dx/Problem (Free Text): Admission Diagnosis/Problem Admission Diagnosis/Problem Hypokalemia Subjective Update: Patient feels fine this morning. Weakness slightly better Functional Status: Reports: Tolerating Diet, Urinating. Denies: Ambulating - Review of Systems General: Reports: Weakness, Fatigue. Denies: Fever Pulmonary: Denies: Shortness of Breath, Pleuritic Chest Pain Cardiovascular: Denies: Chest Pain, Palpitations, Dyspnea on Exertion Gastrointestinal: Denies: Abdominal Pain, Constipation, Decreased Appetite Genitourinary: Denies: Dysuria, Frequency, Burning Neurological: Reports: Difficulty Walking, Weakness, Gait Disturbance - Patient Data Vitals - Most Recent: Last Vital Signs Temp 37.2 C 08/06/20 08:00 Pulse 77 08/06/20 08:00 Resp 16 08/06/20 08:00 BP 130/83 08/06/20 08:00 Pulse Ox 98 08/06/20 08:00 Weight - Most Recent: 66.905 kg I&O - Last 24 Hours: Intake & Output 08/05/20 08/06/20 08/06/20 22:59 06:59 14:59 Intake Total 2144 2059 Output Total 550 880 Balance 1594 1179 Lab Results Last 24 Hours: Laboratory Results - last 24 hr 08/05/20 08/06/20 08/06/20 Range/Units 13:30 05:33 05:33 WBC 6.25 (4.0-11.0) K/uL RBC 2.94 L (4.50-5.90) M/uL Hgb 9.7 L (13.0-17.0) g/dL Hct 27.7 L (38.0-50.0) % MCV 94.2 (80.0-98.0) fL MCH 33.0 H (27.0-32.0) pg MCHC 35.0 (31.0-37.0) g/dL RDW Std Deviation 52.4 (28.0-62.0) fl RDW Coeff of Stephane 15 (11.0-15.0) % Plt Count 170 (150-400) K/uL MPV 10.40 (7.40-12.00) fL Add Manual Diff YES Neutrophils % (Manual) 44 L (48.0-80.0) % Band Neutrophils % 1 % Lymphocytes % (Manual) 38 (16.0-40.0) % Monocytes % (Manual) 13 (0.0-15.0) % Eosinophils % (Manual) 2 (0.0-7.0) % Basophils % (Manual) 2 H (0.0-1.5) % Nucleated RBC % 0.0 /100WBC Absolute Seg Neuts 2.8 (1.4-5.7) Band Neutrophils # 0.1 Lymphocytes # (Manual) 2.4 (0.6-2.4) Monocytes # (Manual) 0.8 (0.0-0.8) Eosinophils # (Manual) 0.1 (0.0-0.7) Basophils # (Manual) 0.1 (0.0-0.1) Nucleated RBCs # 0 K/uL Sodium 138 139 (136-148) mmol/L Potassium 3.3 L 3.0 L (3.5-5.1) mmol/L Chloride 100 103 (98-107) mmol/L Carbon Dioxide 28.9 27.5 (21.0-32.0) mmol/L BUN 6 L 4 L (7.0-18.0) mg/dL Creatinine 0.6 L 0.6 L (0.8-1.3) mg/dL Est Cr Clr Drug Dosing 121.11 114.61 mL/min Estimated GFR (MDRD) > 60.0 > 60.0 ml/min Glucose 118 H 124 H (74-106) mg/dL Calcium 8.3 L 8.1 L (8.5-10.1) mg/dL Magnesium 1.4 L (1.8-2.4) mg/dL Med Orders - Current: Current Medications Folic Acid (Folic Acid 1 Mg Tab) 1 mg PO DAILY [facility] Last Admin: 08/06/20 08:59 Dose: 1 mg Documented by: Pantoprazole Sodium 40 mg/ (Sodium Chloride) 10 mls @ 300 mls/hr IV Q24H [facility] Last Admin: 08/05/20 19:54 Dose: 300 mls/hr Documented by: Sodium Chloride (Normal Saline) 1,000 mls @ 100 mls/hr IV ASDIRECTED [facility] Last Admin: 08/06/20 00:14 Dose: 100 mls/hr Documented by: Potassium Chloride/Sodium Chloride (Normal Saline With 40 Meq Kcl) 1,000 mls @ 250 mls/hr IV ONETIME ONE Stop: 08/06/20 13:29 Last Admin: 08/06/20 09:48 Dose: 250 mls/hr Documented by: Lorazepam (Lorazepam 2 Mg/Ml Sdv) 0 mg IVPUSH Q4H PRN; Protocol PRN Reason: Agitation Magnesium Oxide (Magnesium Oxide 400 Mg Tab) 400 mg PO DAILY [facility] Ondansetron HCl (Ondansetron 4 Mg/2 Ml Sdv) 4 mg IVPUSH Q4H PRN PRN Reason: Nausea/Vomiting Sodium Chloride (Sodium Chloride 0.9% 10 Ml Syringe) 10 ml FLUSH ASDIRECTED PRN PRN Reason: Keep Vein Open Last Admin: 08/04/20 16:05 Dose: 10 ml Documented by: Sodium Chloride (Sodium Chloride 0.9% 2.5 Ml Syringe) 2.5 ml FLUSH ASDIRECTED PRN PRN Reason: Keep Vein Open Sodium Phosphate (Phosphorus #1 250 Mg Tab) 250 mg PO DAILY [facility] Last Admin: 08/06/20 08:59 Dose: 250 mg Documented by: Thiamine HCl (Thiamine 100 Mg Tab) 100 mg PO DAILY [facility] Last Admin: 08/06/20 09:01 Dose: 100 mg Documented by: Discontinued Medications Multivitamins/Minerals 10 ml/Thiamine HCl 100 mg/ Folic Acid 1 mg/ Sodium Chloride 1,011.2 mls @ 999 mls/hr IV ONETIME ONE Stop: 08/04/20 16:42 Last Admin: 08/04/20 16:01 Dose: 999 mls/hr Documented by: Potassium Chloride 40 meq/ (Premix) 100 mls @ 25 mls/hr IV ONETIME ONE Stop: 08/04/20 22:39 Last Admin: 08/04/20 20:17 Dose: 25 mls/hr Documented by: Magnesium Sulfate 4 gm/ Premix 100 mls @ 25 mls/hr IV ONETIME ONE Stop: 08/04/20 22:39 Last Admin: 08/04/20 19:24 Dose: 25 mls/hr Documented by: Sodium Chloride (Normal Saline) 1,000 mls @ 125 mls/hr IV NOW STA Stop: 08/05/20 04:06 Last Admin: 08/04/20 20:14 Dose: 125 mls/hr Documented by: Potassium Chloride 20 meq/ (Premix) 50 mls @ 25 mls/hr IV ONETIME ONE Stop: 08/05/20 09:24 Last Admin: 08/05/20 09:23 Dose: 25 mls/hr Documented by: Potassium Chloride 20 meq/ (Premix) 50 mls @ 25 mls/hr IV Q2H [facility] Stop: 08/05/20 16:15 Last Admin: 08/05/20 15:02 Dose: 25 mls/hr Documented by: Magnesium Sulfate (Magnesium Sulfate In Water 4 Gm/100 Ml) 4 gm in 100 mls @ 50 mls/hr IV ONETIME ONE Stop: 08/06/20 11:29 Last Admin: 08/06/20 09:52 Dose: 50 mls/hr Documented by: Potassium Chloride (Potassium Chloride 20 Meq Tab.Er) 40 meq PO ONETIME ONE Stop: 08/05/20 07:26 Last Admin: 08/05/20 08:42 Dose: 40 meq Documented by: - Patient Data Lab Results Last 24 hrs: Laboratory Results - last 24 hr 08/05/20 08/06/20 08/06/20 Range/Units 13:30 05:33 05:33 WBC 6.25 (4.0-11.0) K/uL RBC 2.94 L (4.50-5.90) M/uL Hgb 9.7 L (13.0-17.0) g/dL Hct 27.7 L (38.0-50.0) % MCV 94.2 (80.0-98.0) fL MCH 33.0 H (27.0-32.0) pg MCHC 35.0 (31.0-37.0) g/dL RDW Std Deviation 52.4 (28.0-62.0) fl RDW Coeff of Stephane 15 (11.0-15.0) % Plt Count 170 (150-400) K/uL MPV 10.40 (7.40-12.00) fL Add Manual Diff YES Neutrophils % (Manual) 44 L (48.0-80.0) % Band Neutrophils % 1 % Lymphocytes % (Manual) 38 (16.0-40.0) % Monocytes % (Manual) 13 (0.0-15.0) % Eosinophils % (Manual) 2 (0.0-7.0) % Basophils % (Manual) 2 H (0.0-1.5) % Nucleated RBC % 0.0 /100WBC Absolute Seg Neuts 2.8 (1.4-5.7) Band Neutrophils # 0.1 Lymphocytes # (Manual) 2.4 (0.6-2.4) Monocytes # (Manual) 0.8 (0.0-0.8) Eosinophils # (Manual) 0.1 (0.0-0.7) Basophils # (Manual) 0.1 (0.0-0.1) Nucleated RBCs # 0 K/uL Sodium 138 139 (136-148) mmol/L Potassium 3.3 L 3.0 L (3.5-5.1) mmol/L Chloride 100 103 (98-107) mmol/L Carbon Dioxide 28.9 27.5 (21.0-32.0) mmol/L BUN 6 L 4 L (7.0-18.0) mg/dL Creatinine 0.6 L 0.6 L (0.8-1.3) mg/dL Est Cr Clr Drug Dosing 121.11 114.61 mL/min Estimated GFR (MDRD) > 60.0 > 60.0 ml/min Glucose 118 H 124 H (74-106) mg/dL Calcium 8.3 L 8.1 L (8.5-10.1) mg/dL Magnesium 1.4 L (1.8-2.4) mg/dL Result Diagrams: 08/06/20 05:33 08/06/20 05:33 Sepsis Event Note - Evaluation Sepsis Screening Result: No Definite Risk - Focused Exam Vital Signs: Vital Signs Temp Pulse Resp BP Pulse Ox 08/06/20 08:00 37.2 C 77 16 130/83 98 08/06/20 03:35 37.2 C 77 14 125/80 98 - Problem List & Annotations (1) Hypomagnesemia SNOMED Code(s): 778643832 Code(s): E83.42 - HYPOMAGNESEMIA Status: Acute Current Visit: Yes (2) Hypokalemia SNOMED Code(s): 86363238 Code(s): E87.6 - HYPOKALEMIA Status: Acute Current Visit: Yes (3) Weakness SNOMED Code(s): 20463485 Code(s): R53.1 - WEAKNESS Status: Acute Current Visit: Yes (4) Ataxia SNOMED Code(s): 11086534 Code(s): R27.0 - ATAXIA, UNSPECIFIED Status: Acute Current Visit: No (5) Malnutrition SNOMED Code(s): 86642288 Code(s): E46 - UNSPECIFIED PROTEIN-CALORIE MALNUTRITION Status: Acute Current Visit: No Qualifiers: Malnutrition type: protein-calorie malnutrition Protein-calorie malnutrition severity: mild Qualified Code(s): E44.1 - Mild protein-calorie malnutrition (6) Hypokalemia SNOMED Code(s): 92859013 Code(s): E87.6 - HYPOKALEMIA Status: Resolved Current Visit: No - Problem List Review Problem List Initiated/Reviewed/Updated: Yes - My Orders Last 24 Hours: My Active Orders 08/05/20 19:58 Out of Bed [RC] Q8HR 08/06/20 09:30 Sodium Chloride 0.9% with KCl [Normal Saline with 40 mEq KCl] 1,000 ml IV ONETIME 08/06/20 21:00 Magnesium Oxide 400 mg PO DAILY - Plan Plan:: Generalized weaknessPT consult for ambulation and strengthening. Replace electrolytes, IV fluids PRN, encourage p.o. food intake. History of alcohol abuse abuse/withdrawal-patient has a history of alcohol abuse withdrawal. CIWA protocol with Ativan as needed, continue thiamine and folic acid. Hypokalemia- aggressive IV repletion Hypomagnesemia: repleted, administer before potassium Transaminitis and thrombocytopenia- Likely secondary to alcohol abuse, monitor AM labs SCD due to low platelet count, regular diet, protonix
[2020-08-06] MEDS: Pantoprazole 40 MG in Sodium Chloride 0.9% 10 ML IV SCH (20:18)
[2020-08-06] MEDS: Magnesium Oxide 400 MG Tab PO SCH (20:19)
[2020-08-07] MEDS: Sodium Chloride 0.9% 1,000 ML IV SCH (02:14)
[2020-08-07 06:14] LABS: BLOOD UREA NITROGEN,BUN 3 mg/dL (7.0-18.0); CARBON DIOXIDE,CO2 25.7 mmol/L (21.0-32.0); CHLORIDE,CL 104 mmol/L (98-107); GLUCOSE RANDOM 121 mg/dL (74-106); POTASSIUM,K 3.9 mmol/L (3.5-5.1); SODIUM,NA 139 mmol/L (136-148)
[2020-08-07] MEDS ORDERED: Magnesium Sulfate/Water 2 GM/50 ML BAG IV ONE ×2 (07:30→08:45)
[2020-08-07] MEDS: Folic Acid 1 MG Tab PO SCH (08:25)
[2020-08-07] MEDS: Magnesium Oxide 400 MG Tab PO SCH (08:25)
[2020-08-07] MEDS: Thiamine 100 MG Tab PO SCH (08:25)
[2020-08-07] MEDS: Phosphorus #1 250 MG Tab PO SCH (08:25)
[2020-08-07] MEDS ORDERED: amLODIPine 5 MG Tab PO ONE (11:38)
--- NOTE | 2020-08-07 16:20 | PCM.DCSUM1 ---
<Kenny Doherty - Last Filed: 08/07/20 21:11> Discharge Summary - Hospital Course Free Text/Narrative:: Patient is a 65-year-old male admitted for generalized weakness, hypokalemia, hypomagnesemia, thrombocytopenia. Patient has a history of multiple admissions secondary to alcohol abuse/alcohol withdrawal. Patient states that he was in the clinic today for follow-up visit at which time his primary care physician advised patient to visit the ED for follow-up due to generalized weakness and difficulty with ambulation. Patient states that his generalized weakness began roughly 4 days ago and has been getting weaker since. Patient denies any recent changes to diet, alcohol ingestion, infections. Patient states he came to the emergency department on recommendation of her primary care physician and without a benzo otherwise. On admission patient denies fever, chills, nausea, vomiting, abdominal pain, chest pain, shortness of breath, headaches, dizziness, dysuria, lower back pain, leg pain, decreased sensation in lower extremities. Lab work, white blood cell count 6.43, sodium 131, potassium 2.6, magnesium 1.4, AST 130, platelet 94, UA negative, alcohol negative, chest x-ray no cardiopulmonary disease is noted. Patient admitted to the floor, will start IV normal saline, resumed folic acid and thiamine, WA protocol, physical therapy evaluation tomorrow, monitor a.m. labs. During patient's admission course patient required IV potassium replacement IV fluids. Patient encouraged to eat regular meals as patient appeared to be slightly malnourished with decreased muscle mass. Patient was assessed by physical therapy prior to discharge and it was noted that while working with physical therapy patient did not have a loss of balance or unsteadiness. No need for further physical therapy recommended as patient is at baseline. At discharge patient advised to consume regular meals, and avoid all alcohol consumption. Patient discharged home with oral potassium and oral magnesium which he was directed to discuss with his primary care physician at his next follow-up appointment for medication adjustment. Patient's blood pressure was also slightly elevated during admission, patient started on 10 mg amlodipine and advised to follow-up with primary care physician regarding continuation or dose adjustment of blood pressure medication. Patient advised to visit emergency department if he has chest pain, shortness of breath, significant weakness, headache, dizziness. Patient verbally agrees. - Discharge Data Discharge Date: 08/07/20 Discharge Disposition: Home, W Home Health Agency 06 Condition: Stable - Referral to Home Health Date of Face to Face Encounter: 08/07/20 Reason for Homebound Status: LOWER EXTREMITY WEAKNESS, AMBULATORY DYSFUNCTION Primary Care Physician: Della Mccabe MD Skilled Need: PHYSICAL THERAPY FOR STRENGTHENING - Discharge Diagnosis/Problem(s) (1) Hypokalemia SNOMED Code(s): 21033629 ICD Code: E87.6 - HYPOKALEMIA Status: Acute (2) Weakness SNOMED Code(s): 13797293 ICD Code: R53.1 - WEAKNESS Status: Acute (3) Elevated liver enzymes SNOMED Code(s): 151067993 ICD Code: R74.8 - ABNORMAL LEVELS OF OTHER SERUM ENZYMES Status: Acute (4) Hypomagnesemia SNOMED Code(s): 469849313 ICD Code: E83.42 - HYPOMAGNESEMIA Status: Acute (5) Thrombocytopenia SNOMED Code(s): 315056499 ICD Code: D69.6 - THROMBOCYTOPENIA, UNSPECIFIED Status: Chronic Priority: High - Patient Summary/Data Consults: Consultations 08/04/20 19:31 Consult to Physical Therapy [PT Evaluation and Treatment] [CONS] Stat - Patient Instructions Diet: Heart Healthy Diet Activity: As Tolerated Notify Provider of: Fever, Increased Pain, Swelling and Redness, Drainage, Nausea and/or Vomiting Other/Special Instructions: INFORM PRIMARY CARE PHYSICIAN OF ANY NEW SYMPTOMS. INFORM PHYSICAN OF NEW MEDICATIONS INCLUDING POTASSIUM AND MAGNESIUM SUPPLEMENTS. FOR ANY SEVERE WEAKNESS, DIZZINESS, CHEST PAIN, SHORTNESS OF BREATH REPORT TO THE ER - Discharge Plan Prescriptions/Med Rec: Magnesium Oxide 400 mg PO DAILY #7 tablet amLODIPine [Norvasc] 10 mg PO DAILY #20 tab Potassium Chloride 20 meq PO DAILY #5 tablet.er Home Medications: Home Meds Folic Acid 1 mg PO DAILY 08/04/20 [History] Sod Phos Di, Ramsey/K Phos Ramsey [K-Phos Neutral Tablet] 250 mg PO DAILY 08/04/20 [History] Thiamine HCl [B-1] 100 mg PO DAILY 08/04/20 [History] Magnesium Oxide 400 mg PO DAILY #7 tablet 08/07/20 [Rx] Potassium Chloride 20 meq PO DAILY #5 tablet.er 08/07/20 [Rx] amLODIPine [Norvasc] 10 mg PO DAILY #20 tab 08/07/20 [Rx] Patient Handouts: Hypomagnesemia, Hypokalemia, Weakness, [id number] Forms: ED Department Discharge Referrals: Della Mccabe MD [Primary Care Provider] - 08/17/20 2:00 pm - Discharge Summary/Plan Comment DC Time >30 min.: Yes - Review of Systems General: Denies: Fever, Chills Pulmonary: Denies: Shortness of Breath Cardiovascular: Reports: Other. Denies: Chest Pain Gastrointestinal: Denies: Abdominal Pain Musculoskeletal: Denies: Leg Pain Neurological: Denies: Confusion, Dizziness, Headache Psychiatric: Denies: Confusion - Patient Data Vitals - Most Recent: Last Vital Signs Temp 97.7 F 08/07/20 11:39 Pulse 77 08/07/20 11:39 Resp 16 08/07/20 11:39 BP 163/98 H 08/07/20 12:03 Pulse Ox 97 08/07/20 11:39 Weight - Most Recent: 66.905 kg I&O - Last 24 hours: Intake & Output 08/07/20 08/07/20 08/07/20 06:59 14:59 22:59 Intake Total 1876 653 Output Total 0 Balance 1876 653 Lab Results - Last 24 hrs: Laboratory Results - last 24 hr 08/07/20 08/07/20 Range/Units 05:28 05:28 WBC 6.98 (4.0-11.0) K/uL RBC 2.95 L (4.50-5.90) M/uL Hgb 9.8 L (13.0-17.0) g/dL Hct 28.2 L (38.0-50.0) % MCV 95.6 (80.0-98.0) fL MCH 33.2 H (27.0-32.0) pg MCHC 34.8 (31.0-37.0) g/dL RDW Std Deviation 54.5 (28.0-62.0) fl RDW Coeff of Stephane 16 H (11.0-15.0) % Plt Count 217 (150-400) K/uL MPV 10.00 (7.40-12.00) fL Add Manual Diff YES Neutrophils % (Manual) 50 (48.0-80.0) % Band Neutrophils % 3 % Lymphocytes % (Manual) 36 (16.0-40.0) % Monocytes % (Manual) 9 (0.0-15.0) % Eosinophils % (Manual) 1 (0.0-7.0) % Basophils % (Manual) 1 (0.0-1.5) % Nucleated RBC % 0.0 /100WBC Absolute Seg Neuts 3.5 (1.4-5.7) Band Neutrophils # 0.2 Lymphocytes # (Manual) 2.5 H (0.6-2.4) Monocytes # (Manual) 0.6 (0.0-0.8) Eosinophils # (Manual) 0.1 (0.0-0.7) Basophils # (Manual) 0.1 (0.0-0.1) Nucleated RBCs # 0 K/uL Poikilocytosis 1+ SLIGHT Sodium 139 (136-148) mmol/L Potassium 3.9 (3.5-5.1) mmol/L Chloride 104 (98-107) mmol/L Carbon Dioxide 25.7 (21.0-32.0) mmol/L BUN 3 L (7.0-18.0) mg/dL Creatinine 0.7 L (0.8-1.3) mg/dL Est Cr Clr Drug Dosing 98.23 mL/min Estimated GFR (MDRD) > 60.0 ml/min Glucose 121 H (74-106) mg/dL Calcium 8.6 (8.5-10.1) mg/dL Phosphorus 1.8 L (2.6-4.7) mg/dL Magnesium 1.6 L (1.8-2.4) mg/dL Med Orders - Current: Current Medications Discontinued Medications Amlodipine Besylate (Amlodipine 5 Mg Tab) 10 mg PO ONETIME ONE Stop: 08/07/20 11:39 Last Admin: 08/07/20 12:03 Dose: 10 mg Documented by: Folic Acid (Folic Acid 1 Mg Tab) 1 mg PO DAILY [facility] Last Admin: 08/07/20 08:25 Dose: 1 mg Documented by: Multivitamins/Minerals 10 ml/Thiamine HCl 100 mg/ Folic Acid 1 mg/ Sodium Chloride 1,011.2 mls @ 999 mls/hr IV ONETIME ONE Stop: 08/04/20 16:42 Last Admin: 08/04/20 16:01 Dose: 999 mls/hr Documented by: Potassium Chloride 40 meq/ (Premix) 100 mls @ 25 mls/hr IV ONETIME ONE Stop: 08/04/20 22:39 Last Admin: 08/04/20 20:17 Dose: 25 mls/hr Documented by: Magnesium Sulfate 4 gm/ Premix 100 mls @ 25 mls/hr IV ONETIME ONE Stop: 08/04/20 22:39 Last Admin: 08/04/20 19:24 Dose: 25 mls/hr Documented by: Sodium Chloride (Normal Saline) 1,000 mls @ 125 mls/hr IV NOW STA Stop: 08/05/20 04:06 Last Admin: 08/04/20 20:14 Dose: 125 mls/hr Documented by: Pantoprazole Sodium 40 mg/ (Sodium Chloride) 10 mls @ 300 mls/hr IV Q24H [facility] Last Admin: 08/06/20 20:18 Dose: 300 mls/hr Documented by: Sodium Chloride (Normal Saline) 1,000 mls @ 100 mls/hr IV ASDIRECTED [facility] Last Admin: 08/07/20 02:14 Dose: 100 mls/hr Documented by: Potassium Chloride 20 meq/ (Premix) 50 mls @ 25 mls/hr IV ONETIME ONE Stop: 08/05/20 09:24 Last Admin: 08/05/20 09:23 Dose: 25 mls/hr Documented by: Potassium Chloride 20 meq/ (Premix) 50 mls @ 25 mls/hr IV Q2H [facility] Stop: 08/05/20 16:15 Last Admin: 08/05/20 15:02 Dose: 25 mls/hr Documented by: Magnesium Sulfate (Magnesium Sulfate In Water 4 Gm/100 Ml) 4 gm in 100 mls @ 50 mls/hr IV ONETIME ONE Stop: 08/06/20 11:29 Last Admin: 08/06/20 09:52 Dose: 50 mls/hr Documented by: Potassium Chloride/Sodium Chloride (Normal Saline With 40 Meq Kcl) 1,000 mls @ 250 mls/hr IV ONETIME ONE Stop: 08/06/20 13:29 Last Admin: 08/06/20 09:48 Dose: 250 mls/hr Documented by: Magnesium Sulfate (Magnesium Sulfate In Water 2 Gm/50 Ml) 2 gm in 50 mls @ 50 mls/hr IV ONETIME ONE Stop: 08/07/20 08:29 Last Admin: 08/07/20 08:24 Dose: 50 mls/hr Documented by: Magnesium Sulfate (Magnesium Sulfate In Water 2 Gm/50 Ml) 2 gm in 50 mls @ 50 mls/hr IV ONETIME ONE Stop: 08/07/20 09:44 Lorazepam (Lorazepam 2 Mg/Ml Sdv) 0 mg IVPUSH Q4H PRN; Protocol PRN Reason: Agitation Magnesium Oxide (Magnesium Oxide 400 Mg Tab) 400 mg PO DAILY [facility] Last Admin: 08/07/20 08:25 Dose: 400 mg Documented by: Ondansetron HCl (Ondansetron 4 Mg/2 Ml Sdv) 4 mg IVPUSH Q4H PRN PRN Reason: Nausea/Vomiting Potassium Chloride (Potassium Chloride 20 Meq Tab.Er) 40 meq PO ONETIME ONE Stop: 08/05/20 07:26 Last Admin: 08/05/20 08:42 Dose: 40 meq Documented by: Sodium Chloride (Sodium Chloride 0.9% 10 Ml Syringe) 10 ml FLUSH ASDIRECTED PRN PRN Reason: Keep Vein Open Last Admin: 08/04/20 16:05 Dose: 10 ml Documented by: Sodium Chloride (Sodium Chloride 0.9% 2.5 Ml Syringe) 2.5 ml FLUSH ASDIRECTED PRN PRN Reason: Keep Vein Open Sodium Phosphate (Phosphorus #1 250 Mg Tab) 250 mg PO DAILY [facility] Last Admin: 08/07/20 08:25 Dose: 250 mg Documented by: Thiamine HCl (Thiamine 100 Mg Tab) 100 mg PO DAILY [facility] Last Admin: 08/07/20 08:25 Dose: 100 mg Documented by: - Exam General: Reports: Alert, Oriented Lungs: Reports: Clear to Auscultation, Normal Respiratory Effort Cardiovascular: Reports: Regular Rate, Regular Rhythm GI/Abdominal Exam: Normal Bowel Sounds, Soft, Non-Tender Extremities: No Pedal Edema Psy/Mental Status: Reports: Alert <Bossman,Hooria - Last Filed: 08/08/20 22:44> Discharge Summary - Hospital Course Free Text/Narrative:: I have seen and evaluated the patient and agree with the residents note unless specified in my note - Referral to Home Health Primary Care Physician: Della Mccabe MD - Discharge Diagnosis/Problem(s) (1) Hypomagnesemia SNOMED Code(s): 982315322 ICD Code: E83.42 - HYPOMAGNESEMIA Status: Acute (2) Hypokalemia SNOMED Code(s): 77835288 ICD Code: E87.6 - HYPOKALEMIA Status: Acute (3) Weakness SNOMED Code(s): 28453400 ICD Code: R53.1 - WEAKNESS Status: Acute (4) Ataxia SNOMED Code(s): 54300615 ICD Code: R27.0 - ATAXIA, UNSPECIFIED Status: Acute (5) Malnutrition SNOMED Code(s): 52699830 ICD Code: E46 - UNSPECIFIED PROTEIN-CALORIE MALNUTRITION Status: Acute Qualifiers: Malnutrition type: protein-calorie malnutrition Protein-calorie malnutrition severity: mild Qualified Code(s): E44.1 - Mild protein-calorie malnutrition (6) Hypokalemia SNOMED Code(s): 21069138 ICD Code: E87.6 - HYPOKALEMIA Status: Resolved - Patient Summary/Data Consults: Consultations 08/04/20 19:31 Consult to Physical Therapy [PT Evaluation and Treatment] [CONS] Stat - Patient Data Vitals - Most Recent: Last Vital Signs Temp 36.5 C 08/07/20 11:39 Pulse 77 08/07/20 11:39 Resp 16 08/07/20 11:39 BP 163/98 H 08/07/20 12:03 Pulse Ox 97 08/07/20 11:39 Med Orders - Current: Current Medications Discontinued Medications Amlodipine Besylate (Amlodipine 5 Mg Tab) 10 mg PO ONETIME ONE Stop: 08/07/20 11:39 Last Admin: 08/07/20 12:03 Dose: 10 mg Documented by: Folic Acid (Folic Acid 1 Mg Tab) 1 mg PO DAILY [facility] Last Admin: 08/07/20 08:25 Dose: 1 mg Documented by: Multivitamins/Minerals 10 ml/Thiamine HCl 100 mg/ Folic Acid 1 mg/ Sodium Chloride 1,011.2 mls @ 999 mls/hr IV ONETIME ONE Stop: 08/04/20 16:42 Last Admin: 08/04/20 16:01 Dose: 999 mls/hr Documented by: Potassium Chloride 40 meq/ (Premix) 100 mls @ 25 mls/hr IV ONETIME ONE Stop: 08/04/20 22:39 Last Admin: 08/04/20 20:17 Dose: 25 mls/hr Documented by: Magnesium Sulfate 4 gm/ Premix 100 mls @ 25 mls/hr IV ONETIME ONE Stop: 08/04/20 22:39 Last Admin: 08/04/20 19:24 Dose: 25 mls/hr Documented by: Sodium Chloride (Normal Saline) 1,000 mls @ 125 mls/hr IV NOW STA Stop: 08/05/20 04:06 Last Admin: 08/04/20 20:14 Dose: 125 mls/hr Documented by: Pantoprazole Sodium 40 mg/ (Sodium Chloride) 10 mls @ 300 mls/hr IV Q24H [facility] Last Admin: 08/06/20 20:18 Dose: 300 mls/hr Documented by: Sodium Chloride (Normal Saline) 1,000 mls @ 100 mls/hr IV ASDIRECTED [facility] Last Admin: 08/07/20 02:14 Dose: 100 mls/hr Documented by: Potassium Chloride 20 meq/ (Premix) 50 mls @ 25 mls/hr IV ONETIME ONE Stop: 08/05/20 09:24 Last Admin: 08/05/20 09:23 Dose: 25 mls/hr Documented by: Potassium Chloride 20 meq/ (Premix) 50 mls @ 25 mls/hr IV Q2H [facility] Stop: 08/05/20 16:15 Last Admin: 08/05/20 15:02 Dose: 25 mls/hr Documented by: Magnesium Sulfate (Magnesium Sulfate In Water 4 Gm/100 Ml) 4 gm in 100 mls @ 50 mls/hr IV ONETIME ONE Stop: 08/06/20 11:29 Last Admin: 08/06/20 09:52 Dose: 50 mls/hr Documented by: Potassium Chloride/Sodium Chloride (Normal Saline With 40 Meq Kcl) 1,000 mls @ 250 mls/hr IV ONETIME ONE Stop: 08/06/20 13:29 Last Admin: 08/06/20 09:48 Dose: 250 mls/hr Documented by: Magnesium Sulfate (Magnesium Sulfate In Water 2 Gm/50 Ml) 2 gm in 50 mls @ 50 mls/hr IV ONETIME ONE Stop: 08/07/20 08:29 Last Admin: 08/07/20 08:24 Dose: 50 mls/hr Documented by: Magnesium Sulfate (Magnesium Sulfate In Water 2 Gm/50 Ml) 2 gm in 50 mls @ 50 mls/hr IV ONETIME ONE Stop: 08/07/20 09:44 Lorazepam (Lorazepam 2 Mg/Ml Sdv) 0 mg IVPUSH Q4H PRN; Protocol PRN Reason: Agitation Magnesium Oxide (Magnesium Oxide 400 Mg Tab) 400 mg PO DAILY [facility] Last Admin: 08/07/20 08:25 Dose: 400 mg Documented by: Ondansetron HCl (Ondansetron 4 Mg/2 Ml Sdv) 4 mg IVPUSH Q4H PRN PRN Reason: Nausea/Vomiting Potassium Chloride (Potassium Chloride 20 Meq Tab.Er) 40 meq PO ONETIME ONE Stop: 08/05/20 07:26 Last Admin: 08/05/20 08:42 Dose: 40 meq Documented by: Sodium Chloride (Sodium Chloride 0.9% 10 Ml Syringe) 10 ml FLUSH ASDIRECTED PRN PRN Reason: Keep Vein Open Last Admin: 08/04/20 16:05 Dose: 10 ml Documented by: Sodium Chloride (Sodium Chloride 0.9% 2.5 Ml Syringe) 2.5 ml FLUSH ASDIRECTED PRN PRN Reason: Keep Vein Open Sodium Phosphate (Phosphorus #1 250 Mg Tab) 250 mg PO DAILY [facility] Last Admin: 08/07/20 08:25 Dose: 250 mg Documented by: Thiamine HCl (Thiamine 100 Mg Tab) 100 mg PO DAILY [facility] Last Admin: 08/07/20 08:25 Dose: 100 mg Documented by:
== END 2020-08-07 13:25 | disposition home health service (06) | DRG 813 ==
LOC: MW.ED 15:22 → MW.MS 20:04 → UNDOADMOB 20:04 → OBSVTOIN 08-06 18:36 → MW.MS 08-06 18:37
PROVIDERS: ADMIT Student in an Organized Health Care Education/Training Program; ATTEND Student in an Organized Health Care Education/Training Program
DX: D69.6 Thrombocytopenia, unspecified (principal); E44.1 Mild protein-calorie malnutrition; F10.139 Alcohol abuse with withdrawal, unspecified; E87.6 Hypokalemia; E83.42 Hypomagnesemia; R74.8 Abnormal levels of other serum enzymes; D57.1 Sickle-cell disease without crisis; R53.1 Weakness; R27.0 Ataxia, unspecified; F10.10 Alcohol abuse, uncomplicated; E78.00 Pure hypercholesterolemia, unspecified; I10 Essential (primary) hypertension; F17.200 Nicotine dependence, unspecified, uncomplicated; Z20.822 Contact with and (suspected) exposure to COVID-19; Z79.899 Other long term (current) drug therapy; Z87.19 Personal history of other diseases of the digestive system; Y90.9 Presence of alcohol in blood, level not specified; Z68.21 Body mass index [BMI] 21.0-21.9, adult
CPT/HCPCS: 0240U; 36415; 71045; 80048; 80053; 80307; 81003; 82140; 82607; 83735; 84100; 84443; 84484; 85025; 85610; 93005; 96365; 96366; 96367; 96375; 96376; 97161; 99285; 93010; 99284; A9270-GY; C9113; G0378; J3411; J3475; J3480; J7030

== ENCOUNTER 2020-12-11 14:37 | Observation (INO) | payer MEDICARE, MEDICAID ==
[2020-12-11] MEDS ORDERED: Sodium Chloride 0.9% 2.5 ML Syringe FLUSH PRN (14:38)
[2020-12-11] MEDS ORDERED: Sodium Chloride 0.9% 1,000 ML IV ONE (14:38)
[2020-12-11] MEDS ORDERED: Sodium Chloride 0.9% 10 ML Syringe FLUSH PRN (14:38)
--- NOTE | 2020-12-11 14:40 | EDM.PDOC ---
ED HPI GENERAL MEDICAL PROBLEM - General Chief Complaint: Syncope Stated Complaint: FALL Time Seen by Provider: 12/11/20 14:38 Source of Information: Reports: Patient, EMS History Limitations: Reports: No Limitations - History of Present Illness INITIAL COMMENTS - FREE TEXT/NARRATIVE: 65-year-old male past medical history alcohol abuse, thrombocytopenia, pancreatitis, hypokalemia, hypomagnesemia, alcohol withdrawal, Warnicke's disease, rhabdomyolysis, protein malnutrition presents for syncopal episode. Patient has a very flat affect and is a very poor historian. He states that he was seated having a bowel movement when he lost consciousness. He denies hitting his head. He states that he was assisted up and has not ambulated after the fall. He denies any complaints. He denies headache, chest pain, shortness of breath. - Related Data Allergies Allergy/AdvReac Type Severity Reaction Status Date / Time No Known Allergies Allergy Verified 12/11/20 14:39 Home Meds: Home Meds . [No Known Home Meds] 12/11/20 [History] Past Medical History - Past Health History Medical/Surgical History: Denies Medical/Surgical History HEENT History: Reports: None Cardiovascular History: Reports: High Cholesterol, Hypertension Respiratory History: Reports: None Gastrointestinal History: Reports: GI Bleed Genitourinary History: Reports: None Musculoskeletal History: Reports: None Neurological History: Reports: None Psychiatric History: Reports: None Endocrine/Metabolic History: Reports: None Insulin Pump Model and Pharmacy Informatics Specialist: None Hematologic History: Reports: None Immunologic History: Reports: None Oncologic (Cancer) History: Reports: None Dermatologic History: Reports: None - Infectious Disease History Infectious Disease History: Reports: Novel Coronavirus - Past Surgical History Head Surgeries/Procedures: Reports: None HEENT Surgical History: Reports: None Cardiovascular Surgical History: Reports: None Respiratory Surgical History: Reports: None GI Surgical History: Reports: EGD Male Surgical History: Reports: None Endocrine Surgical History: Reports: None Neurological Surgical History: Reports: None Musculoskeletal Surgical History: Reports: None Oncologic Surgical History: Reports: None Dermatological Surgical History: Reports: None Social & Family History - Family History Family Medical History: No Pertinent Family History - Caffeine Use Caffeine Use: Reports: None Caffeine Use Comment: once in a while use of coffee. ED ROS GENERAL - Review of Systems Review Of Systems: Comprehensive ROS is negative, except as noted in HPI. ED EXAM, GENERAL - Physical Exam Exam: See Below Exam Limited By: No Limitations General Appearance: Alert, WD/WN, No Apparent Distress Eye Exam: Bilateral Eye: EOMI, PERRL Ears: Hearing Grossly Normal Throat/Mouth: Normal Voice, No Airway Compromise Head: Atraumatic, Normocephalic Neck: Normal Inspection, Supple, Non-Tender Respiratory/Chest: No Respiratory Distress, Lungs Clear, Normal Breath Sounds, No Accessory Muscle Use Cardiovascular: Normal Peripheral Pulses, Regular Rate, Rhythm, No Edema GI/Abdominal: Soft, Non-Tender Extremities: Normal Inspection Neurological: Alert, CN II-XII Intact, Normal Cognition, Normal Gait, Normal Reflexes, No Motor/Sensory Deficits Psychiatric: Depressed Mood, Flat Affect Skin Exam: Warm, Dry, Intact, Normal Color #1 Interpretation EKG Date: 12/11/20 Time: 14:35 Rhythm: NSR Rate (Beats/Min): 69 [place]: Normal P-Wave: Present QRS: Normal ST-T: Normal QT: Normal CA/PQ Interval: 132 Comparison: NA - No Prior EKG EKG Interpretation Comments: no acute ischemic changes Course - Vital Signs Last Recorded V/S: Last Vital Signs Temp 98.5 F 12/11/20 14:40 Pulse 69 12/11/20 14:40 Resp 18 12/11/20 14:40 BP 141/87 H 12/11/20 14:40 Pulse Ox 97 12/11/20 14:40 Orthostatic Blood Pressure [ 141/82 Standing] Orthostatic Blood Pressure [ 158/95 Sitting] Orthostatic Blood Pressure [ 140/77 Supine] - Orders/Labs/Meds Orders: Active Orders 24 hr Category Date Time Status Blood Glucose Check, Bedside [RC] ONETIME Care 12/11/20 14:45 Active Cardiac Monitoring [RC] . DIRECTED Care 12/11/20 14:38 Active EKG Documentation Completion [RC] STAT Care 12/11/20 14:38 Active Orthostatic Vital Signs [RC] ASDIRECTED Care 12/11/20 14:38 Active Pulse Oximetry [RC] ASDIRECTED Care 12/11/20 14:38 Active CORONAVIRUS COVID-19 EMANI [MOLEC] Stat Lab 12/11/20 15:18 Received REFLEX LACTIC ACID YES OR NO [CHEM] Routine Lab 12/11/20 15:24 Received MVI, Adult with Vitamin K [Infuvite Adult] 10 ml Med 12/11/20 15:34 Active Thiamine [Vitamin B-1] 100 mg Folic Acid 1 mg Sodium Chloride 0.9% [Normal Saline] 1,000 ml IV ONETIME Magnesium Sulfate/Water [Magnesium Sulfate in Water 2 Med 12/11/20 15:33 Active GM/50 ML] 2 gm Premix Bag 1 bag IV ONETIME Potassium Chloride Riders [KCL in Water 40 MEQ/100 ML] Med 12/11/20 15:32 Active 40 meq Premix Bag 1 bag IV ONETIME Sodium Chloride 0.9% [Saline Flush] Med 12/11/20 14:38 Active 10 ml FLUSH ASDIRECTED PRN Sodium Chloride 0.9% [Saline Flush] Med 12/11/20 14:38 Active 2.5 ml FLUSH ASDIRECTED PRN Saline Lock Insert [OM.PC] Stat Oth 12/11/20 14:38 Ordered Medication Orders Potassium Chloride 40 meq/ (Premix) 100 mls @ 25 mls/hr IV ONETIME ONE Stop: 12/11/20 19:31 Last Admin: 12/11/20 15:48 Dose: 25 mls/hr Documented by: OLGA Magnesium Sulfate 2 gm/ Premix 50 mls @ 50 mls/hr IV ONETIME ONE Stop: 12/11/20 16:32 Last Admin: 12/11/20 15:46 Dose: 50 mls/hr Documented by: OLGA Multivitamins/Minerals 10 ml/Thiamine HCl 100 mg/ Folic Acid 1 mg/ Sodium Chloride 1,011.2 mls @ 999 mls/hr IV ONETIME ONE Stop: 12/11/20 16:34 Last Admin: 12/11/20 15:48 Dose: 999 mls/hr Documented by: OLGA Sodium Chloride (Sodium Chloride 0.9% 10 Ml Syringe) 10 ml FLUSH ASDIRECTED PRN PRN Reason: Keep Vein Open Last Admin: 12/11/20 14:43 Dose: 10 ml Documented by: OLGA Sodium Chloride (Sodium Chloride 0.9% 2.5 Ml Syringe) 2.5 ml FLUSH ASDIRECTED PRN PRN Reason: Keep Vein Open Last Admin: 12/11/20 14:43 Dose: 2.5 ml Documented by: OLGA Labs: Laboratory Tests 12/11/20 12/11/20 12/11/20 Range/Units 14:40 14:40 14:54 WBC 7.31 (4.0-11.0) K/uL RBC 4.53 (4.50-5.90) M/uL Hgb 13.7 (13.0-17.0) g/dL Hct 37.2 L (38.0-50.0) % MCV 82.1 (80.0-98.0) fL MCH 30.2 (27.0-32.0) pg MCHC 36.8 (31.0-37.0) g/dL RDW Std Deviation 47.4 (28.0-62.0) fl RDW Coeff of Stephane 16 H (11.0-15.0) % Plt Count 262 (150-400) K/uL MPV 9.80 (7.40-12.00) fL Neut % (Auto) 51.1 (48.0-80.0) % Lymph % (Auto) 30.8 (16.0-40.0) % [place] % (Auto) 17.6 H (0.0-15.0) % Eos % (Auto) 0.4 (0.0-7.0) % Baso % (Auto) 0.1 (0.0-1.5) % Neut # (Auto) 3.7 (1.4-5.7) K/uL Lymph # (Auto) 2.3 (0.6-2.4) K/uL [place] # (Auto) 1.3 H (0.0-0.8) K/uL Eos # (Auto) 0.0 (0.0-0.7) K/uL Baso # (Auto) 0.0 (0.0-0.1) K/uL Nucleated RBC % 0.0 /100WBC Nucleated RBCs # 0 K/uL Sodium 135 L (136-148) mmol/L Potassium 2.1 L* (3.5-5.1) mmol/L Chloride 94 L (98-107) mmol/L Carbon Dioxide 30.9 (21.0-32.0) mmol/L BUN 6 L (7.0-18.0) mg/dL Creatinine 0.8 (0.8-1.3) mg/dL Est Cr Clr Drug Dosing 73.10 mL/min Estimated GFR (MDRD) > 60.0 ml/min Glucose 123 H (74-106) mg/dL Lactic Acid 4.4 H* (0.4-2.0) mmol/L Calcium 8.3 L (8.5-10.1) mg/dL Magnesium 1.2 L (1.8-2.4) mg/dL Total Bilirubin 1.1 H (0.2-1.0) mg/dL AST 136 H (15-37) IU/L ALT 27 (14-63) IU/L Alkaline Phosphatase 92 (46-116) U/L Creatine Kinase 113 (26-308) U/L Troponin I < 0.050 (0.000-0.056) ng/mL Total Protein 7.5 (6.4-8.2) g/dL Albumin 3.1 L (3.4-5.0) g/dL Globulin 4.4 H (2.6-4.0) g/dL Albumin/Globulin Ratio 0.7 L (0.9-1.6) Ethyl Alcohol 3 mg/dL Meds: Medications Generic Name Dose Route Start Last Admin Trade Name Freq PRN Reason Stop Dose Admin Potassium Chloride 40 meq/ 100 mls @ 25 mls/hr 12/11/20 15:32 12/11/20 15:48 Premix IV 12/11/20 19:31 25 mls/hr ONETIME ONE Administration Magnesium Sulfate 2 gm/ Premix 50 mls @ 50 mls/hr 12/11/20 15:33 12/11/20 15:46 IV 12/11/20 16:32 50 mls/hr ONETIME ONE Administration Multivitamins/Minerals 10 ml/ 1,011.2 mls @ 999 mls/hr 12/11/20 15:34 12/11/20 15:48 Thiamine HCl 100 mg/ Folic IV 12/11/20 16:34 999 mls/hr Acid 1 mg/ Sodium Chloride ONETIME ONE Administration Sodium Chloride 10 ml 12/11/20 14:38 12/11/20 14:43 Sodium Chloride 0.9% 10 Ml Syringe FLUSH 10 ml ASDIRECTED PRN Administration Keep Vein Open Sodium Chloride 2.5 ml 12/11/20 14:38 12/11/20 14:43 Sodium Chloride 0.9% 2.5 Ml Syringe FLUSH 2.5 ml ASDIRECTED PRN Administration Keep Vein Open Discontinued Medications Generic Name Dose Route Start Last Admin Trade Name Nandini PRN Reason Stop Dose Admin Sodium Chloride 1,000 mls @ 999 mls/hr 12/11/20 14:38 12/11/20 14:43 Normal Saline IV 12/11/20 15:38 999 mls/hr .Bolus ONE Administration Lorazepam 2 mg 12/11/20 15:33 12/11/20 15:47 Lorazepam 2 Mg/Ml Sdv IVPUSH 12/11/20 15:34 2 mg ONETIME ONE Administration Potassium Chloride 40 meq 12/11/20 15:33 12/11/20 15:48 Potassium Chloride 20 Meq Tab.Er PO 12/11/20 15:34 40 meq ONETIME ONE Administration - Re-Assessments/Exams Free Text/Narrative Re-Assessment/Exam: 12/11/20 15:18 Orthostatic vitals are unremarkable. 12/11/20 15:35 Labs show elevated lactate, hypokalemia, hypomagnesemia. Will give additional 1 L IV fluid bolus for total 2 L. Will give 40 mEq of IV potassium as well as 40 mEq of p.o. potassium. Will give 2 g of magnesium IV. Patient's alcohol level is only 3, concern for alcohol withdrawal, Ativan 2 mg ordered 12/11/20 15:50 Spoke with patient and hospitalist. They both agree to admission. Departure - Departure Time of Disposition: 15:50 Disposition: Admitted As Inpatient 65 Condition: Fair Clinical Impression: Hypokalemia, Hypomagnesemia - Discharge Information Forms: ED Department Discharge Critical Care Note - Critical Care Note Total Time (mins): 35 Sepsis Event Note (ED) - Focused Exam Vital Signs: Vital Signs Temp Pulse Resp BP Pulse Ox 12/11/20 14:40 98.5 F 69 18 141/87 H 97 - My Orders Last 24 Hours: My Active Orders 12/11/20 14:38 Cardiac Monitoring [RC] . DIRECTED EKG Documentation Completion [RC] STAT Orthostatic Vital Signs [RC] ASDIRECTED Pulse Oximetry [RC] ASDIRECTED Sodium Chloride 0.9% [Saline Flush] 10 ml FLUSH ASDIRECTED PRN Sodium Chloride 0.9% [Saline Flush] 2.5 ml FLUSH ASDIRECTED PRN Saline Lock Insert [OM.PC] Stat 12/11/20 14:45 Blood Glucose Check, Bedside [RC] ONETIME 12/11/20 15:18 CORONAVIRUS COVID-19 EMANI [MOLEC] Stat 12/11/20 15:24 REFLEX LACTIC ACID YES OR NO [CHEM] Routine 12/11/20 15:32 Potassium Chloride Riders [KCL in Water 40 MEQ/100 ML] 40 meq Premix Bag 1 bag IV ONETIME 12/11/20 15:33 Magnesium Sulfate/Water [Magnesium Sulfate in Water 2 GM/50 ML] 2 gm Premix Bag 1 bag IV ONETIME 12/11/20 15:34 MVI, Adult with Vitamin K [Infuvite Adult] 10 ml Thiamine [Vitamin B-1] 100 mg Folic Acid 1 mg Sodium Chloride 0.9% [Normal Saline] 1,000 ml IV ONETIME - Assessment/Plan Last 24 Hours: My Active Orders 12/11/20 14:38 Cardiac Monitoring [RC] . DIRECTED EKG Documentation Completion [RC] STAT Orthostatic Vital Signs [RC] ASDIRECTED Pulse Oximetry [RC] ASDIRECTED Sodium Chloride 0.9% [Saline Flush] 10 ml FLUSH ASDIRECTED PRN Sodium Chloride 0.9% [Saline Flush] 2.5 ml FLUSH ASDIRECTED PRN Saline Lock Insert [OM.PC] Stat 12/11/20 14:45 Blood Glucose Check, Bedside [RC] ONETIME 12/11/20 15:18 CORONAVIRUS COVID-19 EMANI [MOLEC] Stat 12/11/20 15:24 REFLEX LACTIC ACID YES OR NO [CHEM] Routine 12/11/20 15:32 Potassium Chloride Riders [KCL in Water 40 MEQ/100 ML] 40 meq Premix Bag 1 bag IV ONETIME 12/11/20 15:33 Magnesium Sulfate/Water [Magnesium Sulfate in Water 2 GM/50 ML] 2 gm Premix Bag 1 bag IV ONETIME 12/11/20 15:34 MVI, Adult with Vitamin K [Infuvite Adult] 10 ml Thiamine [Vitamin B-1] 100 mg Folic Acid 1 mg Sodium Chloride 0.9% [Normal Saline] 1,000 ml IV ONETIME
[2020-12-11 15:18] LABS: BLOOD UREA NITROGEN,BUN 6 mg/dL (7.0-18.0); CARBON DIOXIDE,CO2 30.9 mmol/L (21.0-32.0); CHLORIDE,CL 94 mmol/L (98-107); GLUCOSE RANDOM 123 mg/dL (74-106); SODIUM,NA 135 mmol/L (136-148)
--- NOTE | 2020-12-11 15:23 | CR ---
INDICATION: syncope. prior aug 04 2020 TECHNIQUE: Chest 1 view. COMPARISON: 08/04/20 FINDINGS: Cardiovascular and mediastinum: Heart size and vasculature are normal in caliber and appearance. Mediastinum is within normal limits. Lungs and pleural space: Lungs are clear. No sign of infiltrate or mass. No sign of pleural effusion. No pneumothorax. Bones and soft tissues: No significant findings. IMPRESSION: Unremarkable chest. Dictated by: Kendall Swain MD @ 12/11/2020 15:22:12 (Electronically Signed)
[2020-12-11 15:31] LABS: POTASSIUM,K 2.1 mmol/L (3.5-5.1)
[2020-12-11] MEDS ORDERED: Potassium Chloride Riders 40 MEQ in Premix Bag 1 BAG IV ONE (15:32)
[2020-12-11] MEDS ORDERED: LORazepam 2 MG/ML SDV IVPUSH ONE (15:33)
[2020-12-11] MEDS ORDERED: Potassium Chloride 20 MEQ Tab.ER PO ONE ×2 (15:33→22:20)
[2020-12-11] MEDS ORDERED: Magnesium Sulfate/Water 2 GM in Premix Bag 1 BAG IV ONE (15:33)
[2020-12-11] MEDS ORDERED: MVI, Adult with Vitamin K 10 ML, Thiamine 100 MG, Folic Acid 1 MG in Sodium Chloride 0.... IV ONE ×4 (15:34)
[2020-12-11] MEDS ORDERED: LORazepam 2 MG/ML SDV IVPUSH PRN (17:16)
[2020-12-11] MEDS ORDERED: Acetaminophen 325 MG Tab PO PRN (17:34)
--- NOTE | 2020-12-11 18:05 | PCM.HP.2 ---
H&P History of Present Illness - General Date of Service: 12/11/20 Admit Problem/Dx: Admission Diagnosis/Problem Admission Diagnosis/Problem Hypokalemia - History of Present Illness Initial Comments - Free Text/Narative: 65-year-old male admitted for generalized weakness, hypokalemia, hypomagnesemia. Patient has a history of multiple admissions secondary to alcohol abuse/alcohol withdrawal. Patient states he drank roughly 4 shots of alcohol yesterday, and has been doing so for the past week daily. Patient states that his generalized weakness began few days ago but became severe this morning. Patient denies any recent changes to diet, or recent infections Infections. On admission patient denies fever, chills, nausea, vomiting, abdominal pain, chest pain, shortness of breath, headaches, dizziness, dysuria, lower back pain, leg pain, decreased sensation in lower extremities. States his mouth and lips hurt. ED work-up to include white blood cell count 7.3, potassium 3.1, magnesium 1.2, lactic acid 4.4. Troponin negative x1, AST 136, ALT 27. Chest x-ray impression- lungs are clear, no sign of pleural effusion, no pneumothorax, heart size and vasculature are normal caliber. Patient to be admitted for electrolyte repletion, suspected alcohol withdrawal. On questioning patient states that he does not want to get help for alcohol abuse. - Related Data Allergies/Adverse Reactions: Allergies Allergy/AdvReac Type Severity Reaction Status Date / Time No Known Allergies Allergy Verified 12/11/20 14:39 Home Medications: Home Meds . [No Known Home Meds] 12/11/20 [History] Past Medical History - Past Health History Medical/Surgical History: Denies Medical/Surgical History HEENT History: Reports: None Cardiovascular History: Reports: High Cholesterol, Hypertension Respiratory History: Reports: None Gastrointestinal History: Reports: GI Bleed Genitourinary History: Reports: None Musculoskeletal History: Reports: None Neurological History: Reports: None Psychiatric History: Reports: None Endocrine/Metabolic History: Reports: None Insulin Pump Model and Rental Management Trainee: None Hematologic History: Reports: None Immunologic History: Reports: None Oncologic (Cancer) History: Reports: None Dermatologic History: Reports: None - Infectious Disease History Infectious Disease History: Reports: Novel Coronavirus - Past Surgical History Head Surgeries/Procedures: Reports: None HEENT Surgical History: Reports: None Cardiovascular Surgical History: Reports: None Respiratory Surgical History: Reports: None GI Surgical History: Reports: EGD Male Surgical History: Reports: None Endocrine Surgical History: Reports: None Neurological Surgical History: Reports: None Musculoskeletal Surgical History: Reports: None Oncologic Surgical History: Reports: None Dermatological Surgical History: Reports: None Social & Family History - Family History Family Medical History: No Pertinent Family History Cardiac: Reports: None Respiratory: Reports: None Psychiatric: Reports: None Immunologic: Reports: None - Tobacco Use Tobacco Use Status *Q: Current Every Day Tobacco User Years of Tobacco use: 40 Packs/Tins Daily: 0.5 Used Tobacco, but Quit: No Second Hand Smoke Exposure: Yes - Caffeine Use Caffeine Use: Reports: Tea Caffeine Use Comment: once in a while use of coffee. - Alcohol Use Days Per Week of Alcohol Use: 7 Number of Drinks Per Day: 4 Total Drinks Per Week: 28 Date of Last Drink: 12/10/20 Time of Last Drink: 20:00 - Recreational Drug Use Recreational Drug Use: No H&P Review of Systems - Review of Systems: Review Of Systems: See Below General: Denies: Fever, Chills Pulmonary: Denies: Shortness of Breath, Wheezing, Cough Gastrointestinal: Denies: Abdominal Pain, Nausea, Vomiting Neurological: Reports: Trouble Speaking, Weakness Exam - Exam Exam: See Below - Vital Signs Vital Signs: Last Vital Signs Temp 98.5 F 12/11/20 14:40 Pulse 69 12/11/20 14:40 Resp 18 12/11/20 14:40 BP 141/87 H 12/11/20 14:40 Pulse Ox 97 12/11/20 14:40 Orthostatic Blood Pressure [ 141/82 Standing] Orthostatic Blood Pressure [ 158/95 Sitting] Orthostatic Blood Pressure [ 140/77 Supine] Weight: 136 lb 12.8 oz - Exam General: Alert Lungs: Clear to Auscultation, Normal Respiratory Effort Cardiovascular: Regular Rate, Regular Rhythm GI/Abdominal Exam: Soft, Non-Tender Extremities: No Pedal Edema Neuro Extensive - Mental Status: Alert, Inattentive, Slow Response to Commands - Patient Data Lab Results Last 24 hrs: Laboratory Results - last 24 hr 12/11/20 12/11/20 12/11/20 Range/Units 14:40 14:40 14:54 WBC 7.31 (4.0-11.0) K/uL RBC 4.53 (4.50-5.90) M/uL Hgb 13.7 (13.0-17.0) g/dL Hct 37.2 L (38.0-50.0) % MCV 82.1 (80.0-98.0) fL MCH 30.2 (27.0-32.0) pg MCHC 36.8 (31.0-37.0) g/dL RDW Std Deviation 47.4 (28.0-62.0) fl RDW Coeff of Stephane 16 H (11.0-15.0) % Plt Count 262 (150-400) K/uL MPV 9.80 (7.40-12.00) fL Neut % (Auto) 51.1 (48.0-80.0) % Lymph % (Auto) 30.8 (16.0-40.0) % [place] % (Auto) 17.6 H (0.0-15.0) % Eos % (Auto) 0.4 (0.0-7.0) % Baso % (Auto) 0.1 (0.0-1.5) % Neut # (Auto) 3.7 (1.4-5.7) K/uL Lymph # (Auto) 2.3 (0.6-2.4) K/uL [place] # (Auto) 1.3 H (0.0-0.8) K/uL Eos # (Auto) 0.0 (0.0-0.7) K/uL Baso # (Auto) 0.0 (0.0-0.1) K/uL Nucleated RBC % 0.0 /100WBC Nucleated RBCs # 0 K/uL Sodium 135 L (136-148) mmol/L Potassium 2.1 L* (3.5-5.1) mmol/L Chloride 94 L (98-107) mmol/L Carbon Dioxide 30.9 (21.0-32.0) mmol/L BUN 6 L (7.0-18.0) mg/dL Creatinine 0.8 (0.8-1.3) mg/dL Est Cr Clr Drug Dosing 73.10 mL/min Estimated GFR (MDRD) > 60.0 ml/min Glucose 123 H (74-106) mg/dL Lactic Acid 4.4 H* (0.4-2.0) mmol/L Calcium 8.3 L (8.5-10.1) mg/dL Magnesium 1.2 L (1.8-2.4) mg/dL Total Bilirubin 1.1 H (0.2-1.0) mg/dL AST 136 H (15-37) IU/L ALT 27 (14-63) IU/L Alkaline Phosphatase 92 (46-116) U/L Creatine Kinase 113 (26-308) U/L Troponin I < 0.050 (0.000-0.056) ng/mL Total Protein 7.5 (6.4-8.2) g/dL Albumin 3.1 L (3.4-5.0) g/dL Globulin 4.4 H (2.6-4.0) g/dL Albumin/Globulin Ratio 0.7 L (0.9-1.6) Ethyl Alcohol 3 mg/dL SARS-CoV-2 RNA (EMANI) (NEGATIVE) 12/11/20 Range/Units 15:18 WBC (4.0-11.0) K/uL RBC (4.50-5.90) M/uL Hgb (13.0-17.0) g/dL Hct (38.0-50.0) % MCV (80.0-98.0) fL MCH (27.0-32.0) pg MCHC (31.0-37.0) g/dL RDW Std Deviation (28.0-62.0) fl RDW Coeff of Stephane (11.0-15.0) % Plt Count (150-400) K/uL MPV (7.40-12.00) fL Neut % (Auto) (48.0-80.0) % Lymph % (Auto) (16.0-40.0) % [place] % (Auto) (0.0-15.0) % Eos % (Auto) (0.0-7.0) % Baso % (Auto) (0.0-1.5) % Neut # (Auto) (1.4-5.7) K/uL Lymph # (Auto) (0.6-2.4) K/uL [place] # (Auto) (0.0-0.8) K/uL Eos # (Auto) (0.0-0.7) K/uL Baso # (Auto) (0.0-0.1) K/uL Nucleated RBC % /100WBC Nucleated RBCs # K/uL Sodium (136-148) mmol/L Potassium (3.5-5.1) mmol/L Chloride (98-107) mmol/L Carbon Dioxide (21.0-32.0) mmol/L BUN (7.0-18.0) mg/dL Creatinine (0.8-1.3) mg/dL Est Cr Clr Drug Dosing mL/min Estimated GFR (MDRD) ml/min Glucose (74-106) mg/dL Lactic Acid (0.4-2.0) mmol/L Calcium (8.5-10.1) mg/dL Magnesium (1.8-2.4) mg/dL Total Bilirubin (0.2-1.0) mg/dL AST (15-37) IU/L ALT (14-63) IU/L Alkaline Phosphatase (46-116) U/L Creatine Kinase (26-308) U/L Troponin I (0.000-0.056) ng/mL Total Protein (6.4-8.2) g/dL Albumin (3.4-5.0) g/dL Globulin (2.6-4.0) g/dL Albumin/Globulin Ratio (0.9-1.6) Ethyl Alcohol mg/dL SARS-CoV-2 RNA (EMANI) NEGATIVE (NEGATIVE) Result Diagrams: 12/11/20 14:40 12/11/20 14:40 Sepsis Event Note - Evaluation Sepsis Screening Result: No Definite Risk - Focused Exam Vital Signs: Vital Signs Temp Pulse Resp BP Pulse Ox 12/11/20 14:40 98.5 F 69 18 141/87 H 97 - Problem List (1) Alcohol abuse with physiological dependence SNOMED Code(s): 38228640, 59498907 ICD Code: F10.20 - ALCOHOL DEPENDENCE, UNCOMPLICATED Status: Acute Current Visit: Yes (2) Alcohol intoxication SNOMED Code(s): 92252720 ICD Code: F10.929 - ALCOHOL USE, UNSPECIFIED WITH INTOXICATION, UNSPECIFIED Status: Acute Current Visit: No Qualifiers: Complication of substance-induced condition: uncomplicated Qualified Code(s): F10.920 - Alcohol use, unspecified with intoxication, uncomplicated (3) Elevated liver enzymes SNOMED Code(s): 786866718 ICD Code: R74.8 - ABNORMAL LEVELS OF OTHER SERUM ENZYMES Status: Acute Current Visit: Yes (4) Hypokalemia SNOMED Code(s): 95896742 ICD Code: E87.6 - HYPOKALEMIA Status: Acute Current Visit: Yes (5) Hypomagnesemia SNOMED Code(s): 289079913 ICD Code: E83.42 - HYPOMAGNESEMIA Status: Acute Current Visit: Yes (6) Weakness SNOMED Code(s): 81911169 ICD Code: R53.1 - WEAKNESS Status: Acute Current Visit: Yes Problem List Initiated/Reviewed/Updated: Yes Orders Last 24hrs: Active Orders 24 hr Category Date Time Status Patient Status [ADT] Routine ADT 12/11/20 17:14 Active Antiembolic Devices [RC] PER UNIT ROUTINE Care 12/11/20 17:54 Active CIWAA Assessment [RC] Q4H Care 12/11/20 17:23 Active Cardiac Monitoring [RC] . DIRECTED Care 12/11/20 14:38 Active Oxygen Therapy [RC] PRN Care 12/11/20 17:34 Active Telemetry Monitoring [Cardiac Monitoring] [RC] . Care 12/11/20 16:50 Active DIRECTED VTE/DVT Education [RC] PER UNIT ROUTINE Care 12/11/20 17:34 Active Vital Signs [RC] Q4H Care 12/11/20 17:34 Active Regular Diet [DIET] Diet 12/11/20 Dinner Active BASIC METABOLIC PANEL,BMP [CHEM] Routine Lab 12/11/20 20:00 Ordered MAGNESIUM [CHEM] Routine Lab 12/11/20 20:00 Ordered PHOSPHORUS [CHEM] Routine Lab 12/11/20 20:00 Ordered REFLEX LACTIC ACID YES OR NO [CHEM] Routine Lab 12/11/20 15:24 Received Acetaminophen [TylenoL] Med 12/11/20 17:34 Active 650 mg PO Q4H PRN LORazepam [Ativan] Med 12/11/20 17:16 Active See Protocol IVPUSH Q4H PRN Potassium Chloride Riders [KCL in Water 40 MEQ/100 ML] Med 12/11/20 15:32 Active 40 meq Premix Bag 1 bag IV ONETIME Sodium Chloride 0.9% [Saline Flush] Med 12/11/20 14:38 Active 10 ml FLUSH ASDIRECTED PRN Sodium Chloride 0.9% [Saline Flush] Med 12/11/20 14:38 Active 2.5 ml FLUSH ASDIRECTED PRN SCD [Sequential Compression Device] [OM.PC] Routine Oth 12/11/20 17:54 Ordered Saline Lock Insert [OM.PC] Stat Oth 12/11/20 14:38 Ordered Code Status [Resuscitation Status] Routine Resus Stat 12/11/20 17:33 Ordered Medication Orders Acetaminophen (Acetaminophen 325 Mg Tab) 650 mg PO Q4H PRN PRN Reason: Pain (Mild 1-3)/fever Potassium Chloride 40 meq/ (Premix) 100 mls @ 25 mls/hr IV ONETIME ONE Stop: 12/11/20 19:31 Last Admin: 12/11/20 15:48 Dose: 25 mls/hr Documented by: OLGA Lorazepam (Lorazepam 2 Mg/Ml Sdv) 0 mg IVPUSH Q4H PRN; Protocol PRN Reason: Withdrawal Symptoms Sodium Chloride (Sodium Chloride 0.9% 10 Ml Syringe) 10 ml FLUSH ASDIRECTED PRN PRN Reason: Keep Vein Open Last Admin: 12/11/20 14:43 Dose: 10 ml Documented by: OLGA Sodium Chloride (Sodium Chloride 0.9% 2.5 Ml Syringe) 2.5 ml FLUSH ASDIRECTED PRN PRN Reason: Keep Vein Open Last Admin: 12/11/20 14:43 Dose: 2.5 ml Documented by: OLGA Assessment/Plan Comment:: Hypokalemia-patient given 80 mEq potassium in the ED, will check evening labs and replete as needed. Hypomagnesemia-patient given 2 g of mag sulfate in the ED, will recheck evening labs and replete as needed. Alcohol abuse/withdrawal- CIWA protocol, folic acid, thiamine, telemetry Follow electrolytes
[2020-12-11] MEDS ORDERED: Folic Acid 1 MG Tab PO SCH (21:00)
[2020-12-11] MEDS ORDERED: Thiamine 100 MG Tab PO SCH (21:00)
[2020-12-11 21:09] LABS: BLOOD UREA NITROGEN,BUN 6 mg/dL (7.0-18.0); CARBON DIOXIDE,CO2 32.6 mmol/L (21.0-32.0); CHLORIDE,CL 100 mmol/L (98-107); GLUCOSE RANDOM 179 mg/dL (74-106); POTASSIUM,K 2.9 mmol/L (3.5-5.1); SODIUM,NA 138 mmol/L (136-148)
[2020-12-11] MEDS ORDERED: Diphenhydramine/Lidocaine/Nystatin Suspension 237 ML Bottle PO PRN (21:57)
[2020-12-11] MEDS ORDERED: Potassium Chloride 20 MEQ Packet PO ONE (21:57)
[2020-12-11] MEDS ORDERED: Sodium Chloride 0.9% 1,000 ML IV SCH ×2 (22:45)
[2020-12-12 04:16] LABS: BLOOD UREA NITROGEN,BUN 6 mg/dL (7.0-18.0); CARBON DIOXIDE,CO2 26.6 mmol/L (21.0-32.0); CHLORIDE,CL 104 mmol/L (98-107); GLUCOSE RANDOM 102 mg/dL (74-106); SODIUM,NA 139 mmol/L (136-148)
[2020-12-12] MEDS ORDERED: Potassium Chloride 20 MEQ Tab.ER PO ONE ×2 (08:20→10:30)
[2020-12-12] MEDS ORDERED: Magnesium Sulfate/Water 2 GM in Premix Bag 1 BAG IV ONE (08:20)
--- NOTE | 2020-12-12 11:47 | PCM.DCSUM1 ---
Discharge Summary - Hospital Course Free Text/Narrative:: 65-year-old male admitted for generalized weakness, hypokalemia, hypomagnesemia. Patient has a history of multiple admissions secondary to alcohol abuse/alcohol withdrawal. Patient states he drank roughly 4 shots of alcohol yesterday, and has been doing so for the past week daily. Patient states that his generalized weakness began few days ago but became severe this morning. Patient denies any recent changes to diet, or recent infections Infections. On admission patient denies fever, chills, nausea, vomiting, abdominal pain, chest pain, shortness of breath, headaches, dizziness, dysuria, lower back pain, leg pain, decreased sensation in lower extremities. States his mouth and lips hurt. ED work-up to include white blood cell count 7.3, potassium 3.1, magnesium 1.2, lactic acid 4.4. Troponin negative x1, AST 136, ALT 27. Chest x-ray impression- lungs are clear, no sign of pleural effusion, no pneumothorax, heart size and vasculature are normal caliber. Patient was admitted for potassium, magnesium repletion and monitored for signs of alcohol withdrawal. On questioning patient states that he does not want to get help for alcohol abuse. Patient was discharged home in stable condition. Magnesium and potassium minerals were repleted overnight as well as the morning prior to discharge. Patient states that he has potassium and magnesium supplements at home but was told to discontinue them by a doctor which he cannot member the person's name. Patient advised to resume potassium and magnesium supplements as prescribed by PCP and advised to follow-up with PCP for regular lab work to assess potassium and magnesium levels. During patient's admission course patient also complained of mouth pain. Patient was discharged home on Magic mouthwash to be used 3 times daily as needed - Discharge Data Discharge Date: 12/12/20 Discharge Disposition: Home, Self-Care 01 Condition: Stable - Referral to Home Health Primary Care Physician: PCP None - Discharge Diagnosis/Problem(s) (1) Alcohol abuse with physiological dependence SNOMED Code(s): 14649536, 01645787 ICD Code: F10.20 - ALCOHOL DEPENDENCE, UNCOMPLICATED Status: Acute (2) Alcohol intoxication SNOMED Code(s): 67741467 ICD Code: F10.929 - ALCOHOL USE, UNSPECIFIED WITH INTOXICATION, UNSPECIFIED Status: Acute Qualifiers: Complication of substance-induced condition: uncomplicated Qualified Code(s): F10.920 - Alcohol use, unspecified with intoxication, uncomplicated (3) Elevated liver enzymes SNOMED Code(s): 665099613 ICD Code: R74.8 - ABNORMAL LEVELS OF OTHER SERUM ENZYMES Status: Acute (4) Hypokalemia SNOMED Code(s): 50418387 ICD Code: E87.6 - HYPOKALEMIA Status: Acute (5) Hypomagnesemia SNOMED Code(s): 373598966 ICD Code: E83.42 - HYPOMAGNESEMIA Status: Acute (6) Weakness SNOMED Code(s): 64677597 ICD Code: R53.1 - WEAKNESS Status: Acute - Patient Instructions Diet: Usual Diet as Tolerated Notify Provider of: Fever, Increased Pain, Swelling and Redness, Nausea and/or Vomiting Other/Special Instructions: PATIENT TO RESUME HOME MEDICATIONS OF POTASSIUM AND MAGNESIUM PREVIOUSLY PRESCRIBED. PATIENT TO HAVE ROUTINE LABWORK TO MONITOR POTASSIUM AND MAGNESIUM LEVELS BY HIS PCP. PATIENT TO USE MAGIC MOUTHWASH UP TO THREE TIMES DAILY NEEDED FOR MOUTH PAIN - Discharge Plan *PRESCRIPTION DRUG MONITORING PROGRAM REVIEWED*: Not Applicable *COPY OF PRESCRIPTION DRUG MONITORING REPORT IN PATIENT PATRICK: Not Applicable Prescriptions/Med Rec: Diphenhyd/Lidocaine/Nystatin [Magic Mouthwash] 5 ml PO TID PRN #1 bottle PRN Reason: Other Home Medications: Home Meds Diphenhyd/Lidocaine/Nystatin [Magic Mouthwash] 5 ml PO TID PRN #1 bottle 12/12/20 [Rx] Patient Handouts: Alcohol Use Disorder, Hypomagnesemia, Hypokalemia Referrals: Gayatri Long PA [Physician [facility]] - 12/22/20 1:00 pm - Discharge Summary/Plan Comment DC Time >30 min.: Yes - Review of Systems General: Denies: Fever, Chills Pulmonary: Denies: Shortness of Breath Cardiovascular: Denies: Chest Pain, Palpitations, Orthopnea Gastrointestinal: Denies: Abdominal Pain, Constipation, Nausea Neurological: Denies: Confusion, Dizziness, Headache - Patient Data Vitals - Most Recent: Last Vital Signs Temp 97.6 F 12/12/20 07:38 Pulse 67 12/12/20 07:38 Resp 20 12/12/20 07:38 BP 149/91 H 12/12/20 07:38 Pulse Ox 94 L 12/12/20 07:38 Orthostatic Blood Pressure [ 141/82 Standing] Orthostatic Blood Pressure [ 158/95 Sitting] Orthostatic Blood Pressure [ 140/77 Supine] Weight - Most Recent: 136 lb 12.8 oz I&O - Last 24 hours: Intake & Output 12/11/20 12/12/20 12/12/20 22:59 06:59 14:59 Intake Total 250 50 Output Total 950 Balance -700 50 Lab Results - Last 24 hrs: Laboratory Results - last 24 hr 12/11/20 12/11/20 12/11/20 Range/Units 14:40 14:40 14:54 WBC 7.31 (4.0-11.0) K/uL RBC 4.53 (4.50-5.90) M/uL Hgb 13.7 (13.0-17.0) g/dL Hct 37.2 L (38.0-50.0) % MCV 82.1 (80.0-98.0) fL MCH 30.2 (27.0-32.0) pg MCHC 36.8 (31.0-37.0) g/dL RDW Std Deviation 47.4 (28.0-62.0) fl RDW Coeff of Stephane 16 H (11.0-15.0) % Plt Count 262 (150-400) K/uL MPV 9.80 (7.40-12.00) fL Neut % (Auto) 51.1 (48.0-80.0) % Lymph % (Auto) 30.8 (16.0-40.0) % [place] % (Auto) 17.6 H (0.0-15.0) % Eos % (Auto) 0.4 (0.0-7.0) % Baso % (Auto) 0.1 (0.0-1.5) % Neut # (Auto) 3.7 (1.4-5.7) K/uL Lymph # (Auto) 2.3 (0.6-2.4) K/uL [place] # (Auto) 1.3 H (0.0-0.8) K/uL Eos # (Auto) 0.0 (0.0-0.7) K/uL Baso # (Auto) 0.0 (0.0-0.1) K/uL Nucleated RBC % 0.0 /100WBC Nucleated RBCs # 0 K/uL Sodium 135 L (136-148) mmol/L Potassium 2.1 L* (3.5-5.1) mmol/L Chloride 94 L (98-107) mmol/L Carbon Dioxide 30.9 (21.0-32.0) mmol/L BUN 6 L (7.0-18.0) mg/dL Creatinine 0.8 (0.8-1.3) mg/dL Est Cr Clr Drug Dosing 73.10 mL/min Estimated GFR (MDRD) > 60.0 ml/min Glucose 123 H (74-106) mg/dL Lactic Acid 4.4 H* (0.4-2.0) mmol/L Calcium 8.3 L (8.5-10.1) mg/dL Phosphorus (2.6-4.7) mg/dL Magnesium 1.2 L (1.8-2.4) mg/dL Total Bilirubin 1.1 H (0.2-1.0) mg/dL AST 136 H (15-37) IU/L ALT 27 (14-63) IU/L Alkaline Phosphatase 92 (46-116) U/L Creatine Kinase 113 (26-308) U/L Troponin I < 0.050 (0.000-0.056) ng/mL Total Protein 7.5 (6.4-8.2) g/dL Albumin 3.1 L (3.4-5.0) g/dL Globulin 4.4 H (2.6-4.0) g/dL Albumin/Globulin Ratio 0.7 L (0.9-1.6) Urine Color Urine Appearance Urine pH (5.0-8.0) Ur Specific [place] (1.001-1.035) Urine Protein (NEGATIVE) mg/dL Urine Glucose (UA) (NEGATIVE) mg/dL Urine Ketones (NEGATIVE) mg/dL Urine Occult Blood (NEGATIVE) Urine Nitrite (NEGATIVE) Urine Bilirubin (NEGATIVE) Urine Ictotest Urine Urobilinogen (<2.0) EU/dL Ur Leukocyte Esterase (NEGATIVE) Urine RBC (0-2/HPF) Urine WBC (0-5/HPF) Ur Epithelial Cells (NONE-FEW) Urine Bacteria (NEGATIVE) Urine Mucus (NONE-MOD) Ethyl Alcohol 3 mg/dL SARS-CoV-2 RNA (EMANI) (NEGATIVE) 12/11/20 12/11/20 12/11/20 Range/Units 15:18 20:42 21:46 WBC (4.0-11.0) K/uL RBC (4.50-5.90) M/uL Hgb (13.0-17.0) g/dL Hct (38.0-50.0) % MCV (80.0-98.0) fL MCH (27.0-32.0) pg MCHC (31.0-37.0) g/dL RDW Std Deviation (28.0-62.0) fl RDW Coeff of Stephane (11.0-15.0) % Plt Count (150-400) K/uL MPV (7.40-12.00) fL Neut % (Auto) (48.0-80.0) % Lymph % (Auto) (16.0-40.0) % [place] % (Auto) (0.0-15.0) % Eos % (Auto) (0.0-7.0) % Baso % (Auto) (0.0-1.5) % Neut # (Auto) (1.4-5.7) K/uL Lymph # (Auto) (0.6-2.4) K/uL [place] # (Auto) (0.0-0.8) K/uL Eos # (Auto) (0.0-0.7) K/uL Baso # (Auto) (0.0-0.1) K/uL Nucleated RBC % /100WBC Nucleated RBCs # K/uL Sodium 138 (136-148) mmol/L Potassium 2.9 L (3.5-5.1) mmol/L Chloride 100 (98-107) mmol/L Carbon Dioxide 32.6 H (21.0-32.0) mmol/L BUN 6 L (7.0-18.0) mg/dL Creatinine 0.8 (0.8-1.3) mg/dL Est Cr Clr Drug Dosing 79.72 mL/min Estimated GFR (MDRD) > 60.0 ml/min Glucose 179 H (74-106) mg/dL Lactic Acid 3.6 H* (0.4-2.0) mmol/L Calcium 7.8 L (8.5-10.1) mg/dL Phosphorus 2.7 (2.6-4.7) mg/dL Magnesium 1.8 (1.8-2.4) mg/dL Total Bilirubin (0.2-1.0) mg/dL AST (15-37) IU/L ALT (14-63) IU/L Alkaline Phosphatase (46-116) U/L Creatine Kinase (26-308) U/L Troponin I (0.000-0.056) ng/mL Total Protein (6.4-8.2) g/dL Albumin (3.4-5.0) g/dL Globulin (2.6-4.0) g/dL Albumin/Globulin Ratio (0.9-1.6) Urine Color Urine Appearance Urine pH (5.0-8.0) Ur Specific [place] (1.001-1.035) Urine Protein (NEGATIVE) mg/dL Urine Glucose (UA) (NEGATIVE) mg/dL Urine Ketones (NEGATIVE) mg/dL Urine Occult Blood (NEGATIVE) Urine Nitrite (NEGATIVE) Urine Bilirubin (NEGATIVE) Urine Ictotest Urine Urobilinogen (<2.0) EU/dL Ur Leukocyte Esterase (NEGATIVE) Urine RBC (0-2/HPF) Urine WBC (0-5/HPF) Ur Epithelial Cells (NONE-FEW) Urine Bacteria (NEGATIVE) Urine Mucus (NONE-MOD) Ethyl Alcohol mg/dL SARS-CoV-2 RNA (EMANI) NEGATIVE (NEGATIVE) 12/12/20 12/12/20 12/12/20 Range/Units 03:20 03:55 03:55 WBC 6.48 (4.0-11.0) K/uL RBC 4.31 L (4.50-5.90) M/uL Hgb 13.0 (13.0-17.0) g/dL Hct 35.7 L (38.0-50.0) % MCV 82.8 (80.0-98.0) fL MCH 30.2 (27.0-32.0) pg MCHC 36.4 (31.0-37.0) g/dL RDW Std Deviation 48.0 (28.0-62.0) fl RDW Coeff of Stephane 16 H (11.0-15.0) % Plt Count 248 (150-400) K/uL MPV 9.50 (7.40-12.00) fL Neut % (Auto) 46.0 L (48.0-80.0) % Lymph % (Auto) 37.2 (16.0-40.0) % [place] % (Auto) 15.1 H (0.0-15.0) % Eos % (Auto) 1.4 (0.0-7.0) % Baso % (Auto) 0.3 (0.0-1.5) % Neut # (Auto) 3.0 (1.4-5.7) K/uL Lymph # (Auto) 2.4 (0.6-2.4) K/uL [place] # (Auto) 1.0 H (0.0-0.8) K/uL Eos # (Auto) 0.1 (0.0-0.7) K/uL Baso # (Auto) 0.0 (0.0-0.1) K/uL Nucleated RBC % 0.0 /100WBC Nucleated RBCs # 0 K/uL Sodium 139 (136-148) mmol/L Potassium 3.0 L (3.5-5.1) mmol/L Chloride 104 (98-107) mmol/L Carbon Dioxide 26.6 (21.0-32.0) mmol/L BUN 6 L (7.0-18.0) mg/dL Creatinine 0.7 L (0.8-1.3) mg/dL Est Cr Clr Drug Dosing 91.11 mL/min Estimated GFR (MDRD) > 60.0 ml/min Glucose 102 (74-106) mg/dL Lactic Acid (0.4-2.0) mmol/L Calcium 7.5 L (8.5-10.1) mg/dL Phosphorus (2.6-4.7) mg/dL Magnesium 1.6 L (1.8-2.4) mg/dL Total Bilirubin (0.2-1.0) mg/dL AST (15-37) IU/L ALT (14-63) IU/L Alkaline Phosphatase (46-116) U/L Creatine Kinase (26-308) U/L Troponin I (0.000-0.056) ng/mL Total Protein (6.4-8.2) g/dL Albumin (3.4-5.0) g/dL Globulin (2.6-4.0) g/dL Albumin/Globulin Ratio (0.9-1.6) Urine Color DARK YELLOW Urine Appearance CLEAR Urine pH 7.0 (5.0-8.0) Ur Specific [place] 1.020 (1.001-1.035) Urine Protein NEGATIVE (NEGATIVE) mg/dL Urine Glucose (UA) NEGATIVE (NEGATIVE) mg/dL Urine Ketones 15 H (NEGATIVE) mg/dL Urine Occult Blood TRACE-LYSED H (NEGATIVE) Urine Nitrite NEGATIVE (NEGATIVE) Urine Bilirubin SMALL H (NEGATIVE) Urine Ictotest NEGATIVE Urine Urobilinogen >=8.0 H (<2.0) EU/dL Ur Leukocyte Esterase NEGATIVE (NEGATIVE) Urine RBC 0-2 (0-2/HPF) Urine WBC 0-1 (0-5/HPF) Ur Epithelial Cells RARE (NONE-FEW) Urine Bacteria RARE (NEGATIVE) Urine Mucus LIGHT (NONE-MOD) Ethyl Alcohol mg/dL SARS-CoV-2 RNA (EMANI) (NEGATIVE) 12/12/20 Range/Units 03:55 WBC (4.0-11.0) K/uL RBC (4.50-5.90) M/uL Hgb (13.0-17.0) g/dL Hct (38.0-50.0) % MCV (80.0-98.0) fL MCH (27.0-32.0) pg MCHC (31.0-37.0) g/dL RDW Std Deviation (28.0-62.0) fl RDW Coeff of Stephane (11.0-15.0) % Plt Count (150-400) K/uL MPV (7.40-12.00) fL Neut % (Auto) (48.0-80.0) % Lymph % (Auto) (16.0-40.0) % [place] % (Auto) (0.0-15.0) % Eos % (Auto) (0.0-7.0) % Baso % (Auto) (0.0-1.5) % Neut # (Auto) (1.4-5.7) K/uL Lymph # (Auto) (0.6-2.4) K/uL [place] # (Auto) (0.0-0.8) K/uL Eos # (Auto) (0.0-0.7) K/uL Baso # (Auto) (0.0-0.1) K/uL Nucleated RBC % /100WBC Nucleated RBCs # K/uL Sodium (136-148) mmol/L Potassium (3.5-5.1) mmol/L Chloride (98-107) mmol/L Carbon Dioxide (21.0-32.0) mmol/L BUN (7.0-18.0) mg/dL Creatinine (0.8-1.3) mg/dL Est Cr Clr Drug Dosing mL/min Estimated GFR (MDRD) ml/min Glucose (74-106) mg/dL Lactic Acid 1.3 (0.4-2.0) mmol/L Calcium (8.5-10.1) mg/dL Phosphorus (2.6-4.7) mg/dL Magnesium (1.8-2.4) mg/dL Total Bilirubin (0.2-1.0) mg/dL AST (15-37) IU/L ALT (14-63) IU/L Alkaline Phosphatase (46-116) U/L Creatine Kinase (26-308) U/L Troponin I (0.000-0.056) ng/mL Total Protein (6.4-8.2) g/dL Albumin (3.4-5.0) g/dL Globulin (2.6-4.0) g/dL Albumin/Globulin Ratio (0.9-1.6) Urine Color Urine Appearance Urine pH (5.0-8.0) Ur Specific [place] (1.001-1.035) Urine Protein (NEGATIVE) mg/dL Urine Glucose (UA) (NEGATIVE) mg/dL Urine Ketones (NEGATIVE) mg/dL Urine Occult Blood (NEGATIVE) Urine Nitrite (NEGATIVE) Urine Bilirubin (NEGATIVE) Urine Ictotest Urine Urobilinogen (<2.0) EU/dL Ur Leukocyte Esterase (NEGATIVE) Urine RBC (0-2/HPF) Urine WBC (0-5/HPF) Ur Epithelial Cells (NONE-FEW) Urine Bacteria (NEGATIVE) Urine Mucus (NONE-MOD) Ethyl Alcohol mg/dL SARS-CoV-2 RNA (EMANI) (NEGATIVE) Med Orders - Current: Current Medications Acetaminophen (Acetaminophen 325 Mg Tab) 650 mg PO Q4H PRN PRN Reason: Pain (Mild 1-3)/fever Diphenhydramine/Nystatin/Lidocaine (Diphenhydramine/Lidocaine/Nystatin Suspension 237 Ml Bottle) 5 ml PO TID PRN PRN Reason: Other Folic Acid (Folic Acid 1 Mg Tab) 1 mg PO BEDTIME [facility] Last Admin: 12/11/20 20:18 Dose: 1 mg Documented by: Lorazepam (Lorazepam 2 Mg/Ml Sdv) 0 mg IVPUSH Q4H PRN; Protocol PRN Reason: Withdrawal Symptoms Sodium Chloride (Sodium Chloride 0.9% 10 Ml Syringe) 10 ml FLUSH ASDIRECTED PRN PRN Reason: Keep Vein Open Last Admin: 12/11/20 14:43 Dose: 10 ml Documented by: Sodium Chloride (Sodium Chloride 0.9% 2.5 Ml Syringe) 2.5 ml FLUSH ASDIRECTED PRN PRN Reason: Keep Vein Open Last Admin: 12/11/20 14:43 Dose: 2.5 ml Documented by: Thiamine HCl (Thiamine 100 Mg Tab) 100 mg PO BEDTIME [facility] Last Admin: 12/11/20 20:18 Dose: 100 mg Documented by: Discontinued Medications Sodium Chloride (Normal Saline) 1,000 mls @ 999 mls/hr IV .Bolus ONE Stop: 12/11/20 15:38 Last Admin: 12/11/20 14:43 Dose: 999 mls/hr Documented by: Potassium Chloride 40 meq/ (Premix) 100 mls @ 25 mls/hr IV ONETIME ONE Stop: 12/11/20 19:31 Last Admin: 12/11/20 15:48 Dose: 25 mls/hr Documented by: Magnesium Sulfate 2 gm/ Premix 50 mls @ 50 mls/hr IV ONETIME ONE Stop: 12/11/20 16:32 Last Admin: 12/11/20 15:46 Dose: 50 mls/hr Documented by: Multivitamins/Minerals 10 ml/Thiamine HCl 100 mg/ Folic Acid 1 mg/ Sodium Chloride 1,011.2 mls @ 999 mls/hr IV ONETIME ONE Stop: 12/11/20 16:34 Last Admin: 12/11/20 15:48 Dose: 999 mls/hr Documented by: Sodium Chloride (Normal Saline) 1,000 mls @ 500 mls/hr IV ASDIRECTED MARCEL Stop: 12/11/20 23:45 Last Admin: 12/11/20 22:46 Dose: 500 mls/hr Documented by: Sodium Chloride (Normal Saline) 1,000 mls @ 500 mls/hr IV ASDIRECTED MARCEL Stop: 12/11/20 23:45 Magnesium Sulfate 2 gm/ Premix 50 mls @ 50 mls/hr IV ONETIME ONE Stop: 12/12/20 09:19 Last Admin: 12/12/20 09:20 Dose: 50 mls/hr Documented by: Lorazepam (Lorazepam 2 Mg/Ml Sdv) 2 mg IVPUSH ONETIME ONE Stop: 12/11/20 15:34 Last Admin: 12/11/20 15:47 Dose: 2 mg Documented by: Potassium Chloride (Potassium Chloride 20 Meq Tab.Er) 40 meq PO ONETIME ONE Stop: 12/11/20 15:34 Last Admin: 12/11/20 15:48 Dose: 40 meq Documented by: Potassium Chloride (Potassium Chloride 20 Meq Packet) 40 meq PO ONETIME ONE Stop: 12/11/20 21:58 Last Admin: 12/11/20 22:39 Dose: Not Given Documented by: Potassium Chloride (Potassium Chloride 20 Meq Tab.Er) 40 meq PO ONETIME ONE Stop: 12/11/20 22:21 Last Admin: 12/11/20 22:38 Dose: 40 meq Documented by: Potassium Chloride (Potassium Chloride 20 Meq Tab.Er) 40 meq PO ONETIME ONE Stop: 12/12/20 08:21 Last Admin: 12/12/20 09:26 Dose: 40 meq Documented by: Potassium Chloride (Potassium Chloride 20 Meq Tab.Er) 40 meq PO ONETIME ONE Stop: 12/12/20 10:31 Last Admin: 12/12/20 11:23 Dose: 40 meq Documented by: - Exam General: Reports: Alert, Oriented Lungs: Reports: Clear to Auscultation, Normal Respiratory Effort Cardiovascular: Reports: Regular Rate, Regular Rhythm GI/Abdominal Exam: Soft, Non-Tender Extremities: No Pedal Edema Psy/Mental Status: Reports: Alert
== END 2020-12-12 13:30 | disposition home or self-care (01) ==
LOC: MW.ED 14:37 → MW.MS 15:51 → INTOOBSV 15:51
PROVIDERS: ADMIT Internal Medicine; ATTEND Internal Medicine
DX: E87.6 Hypokalemia (principal); E83.42 Hypomagnesemia; R53.1 Weakness; R74.8 Abnormal levels of other serum enzymes; F10.220 Alcohol dependence with intoxication, uncomplicated; E78.00 Pure hypercholesterolemia, unspecified; I10 Essential (primary) hypertension; F17.210 Nicotine dependence, cigarettes, uncomplicated; Z20.822 Contact with and (suspected) exposure to COVID-19; Z86.16 Personal history of COVID-19; Y90.0 Blood alcohol level of less than 20 mg/100 ml
CPT/HCPCS: 36415; 71045; 80048; 80053; 80307; 81001; 82550; 83605; 83735; 84100; 84484; 85025; 93005; A9270; J2060; J3411; J3475; J3480; J7030; U0002; 96365; 96368; 96375; 99285-25

== ENCOUNTER 2020-12-23 23:57 | Emergency (ER) | payer MEDICARE, MEDICAID ==
--- NOTE | 2020-12-24 00:02 | EDM.PDOC ---
ED HPI GENERAL MEDICAL PROBLEM - General Chief Complaint: Chest Pain Stated Complaint: ALCOHOL Time Seen by Provider: 12/24/20 00:00 Source of Information: Reports: Patient History Limitations: Reports: No Limitations - History of Present Illness INITIAL COMMENTS - FREE TEXT/NARRATIVE: Is a 65-year-old male presents today for chest pain. Patient dates that he was drinking earlier he stated regular drink but he has been chest pain about an hour ago. The chest pain is resolved has not been present since then. He said that the made the pain better or worse did not radiate. The chest pain lasted for less than an hour we did have it. Patient denies any other complaints. - Related Data Allergies Allergy/AdvReac Type Severity Reaction Status Date / Time No Known Allergies Allergy Verified 12/24/20 00:08 Home Meds: Home Meds . [No Known Home Meds] 12/24/20 [History] Past Medical History - Past Health History Medical/Surgical History: Denies Medical/Surgical History HEENT History: Reports: None Cardiovascular History: Reports: High Cholesterol, Hypertension Respiratory History: Reports: None Gastrointestinal History: Reports: GI Bleed Genitourinary History: Reports: None Musculoskeletal History: Reports: None Neurological History: Reports: None Psychiatric History: Reports: None Endocrine/Metabolic History: Reports: None Insulin Pump Model and Bottle Gauger: None Hematologic History: Reports: None Immunologic History: Reports: None Oncologic (Cancer) History: Reports: None Dermatologic History: Reports: None - Infectious Disease History Infectious Disease History: Reports: Novel Coronavirus - Past Surgical History Head Surgeries/Procedures: Reports: None HEENT Surgical History: Reports: None Cardiovascular Surgical History: Reports: None Respiratory Surgical History: Reports: None GI Surgical History: Reports: EGD Male Surgical History: Reports: None Endocrine Surgical History: Reports: None Neurological Surgical History: Reports: None Musculoskeletal Surgical History: Reports: None Oncologic Surgical History: Reports: None Dermatological Surgical History: Reports: None Social & Family History - Family History Family Medical History: No Pertinent Family History Cardiac: Reports: None Respiratory: Reports: None Psychiatric: Reports: None Immunologic: Reports: None - Caffeine Use Caffeine Use: Reports: Tea Caffeine Use Comment: once in a while use of coffee. ED ROS GENERAL - Review of Systems Review Of Systems: See Below Constitutional: Reports: No Symptoms HEENT: Reports: No Symptoms Respiratory: Reports: No Symptoms Cardiovascular: Reports: Chest Pain Endocrine: Reports: No Symptoms GI/Abdominal: Reports: No Symptoms : Reports: No Symptoms Musculoskeletal: Reports: No Symptoms Skin: Reports: No Symptoms Neurological: Reports: No Symptoms Psychiatric: Reports: No Symptoms Hematologic/Lymphatic: Reports: No Symptoms Immunologic: Reports: No Symptoms ED EXAM, GENERAL - Physical Exam Exam: See Below Exam Limited By: No Limitations General Appearance: Alert, WD/WN, No Apparent Distress Respiratory/Chest: No Respiratory Distress Cardiovascular: Normal Peripheral Pulses, Regular Rate, Rhythm GI/Abdominal: Normal Bowel Sounds, Soft, Non-Tender Extremities: Normal Inspection, Normal Range of Motion Neurological: Alert, Oriented, Normal Cognition #1 Interpretation EKG Date: 12/24/20 Time: 00:01 Rhythm: NSR Rate (Beats/Min): 86 ST-T: Normal Course - Orders/Labs/Meds Orders: Active Orders 24 hr Category Date Time Status EKG Documentation Completion [RC] STAT Care 12/24/20 00:00 Active Chest 1V Frontal [CR] Stat Exams 12/24/20 00:00 Ordered CBC WITH AUTO DIFF [HEME] Stat Lab 12/23/20 23:59 Ordered COMPREHENSIVE METABOLIC PN,CMP [CHEM] Stat Lab 12/23/20 23:59 Ordered CREATINE KINASE,CK [CHEM] Stat Lab 12/24/20 00:00 Ordered TROPONIN I [CHEM] Stat Lab 12/24/20 00:00 Ordered - Re-Assessments/Exams Free Text/Narrative Re-Assessment/Exam: 12/24/20 00:13 Patient eloped from the ED. Patient had a friend come pick him up. Patient regularly does eloped his reading previous notes. Will attempt to call patient having return if he has any other concerning symptoms. Departure - Departure Time of Disposition: 00:14 Disposition: Against Medical Advice 07 Condition: Good Clinical Impression: Chest pain Forms: ED Department Discharge - My Orders Last 24 Hours: My Active Orders 12/23/20 23:59 CBC WITH AUTO DIFF [HEME] Stat COMPREHENSIVE METABOLIC PN,CMP [CHEM] Stat 12/24/20 00:00 EKG Documentation Completion [RC] STAT Chest 1V Frontal [CR] Stat CREATINE KINASE,CK [CHEM] Stat TROPONIN I [CHEM] Stat - Assessment/Plan Last 24 Hours: My Active Orders 12/23/20 23:59 CBC WITH AUTO DIFF [HEME] Stat COMPREHENSIVE METABOLIC PN,CMP [CHEM] Stat 12/24/20 00:00 EKG Documentation Completion [RC] STAT Chest 1V Frontal [CR] Stat CREATINE KINASE,CK [CHEM] Stat TROPONIN I [CHEM] Stat Plan: Patient is a 65-year-old male presents today for chest pain. Chest pain was earlier has not had any chest pain for the past hour. Patient says he was also drinking earlier as well. Will obtain EKG labs x-ray and reassess patient.
== END 2020-12-24 00:14 | disposition left against medical advice (07) ==
LOC: MW.ED 23:57
DX: R07.9 Chest pain, unspecified (principal); I10 Essential (primary) hypertension; Z86.16 Personal history of COVID-19; Z53.21 Procedure and treatment not carried out due to patient leaving prior to being seen by health care provider
CPT/HCPCS: 93005; 93010; 99284; 99285-25

== ENCOUNTER 2020-12-29 02:26 | Emergency (ER) | payer MEDICARE, MEDICAID ==
--- NOTE | 2020-12-29 02:54 | EDM.PDOC ---
ED HPI GENERAL MEDICAL PROBLEM - General Chief Complaint: General Stated Complaint: ETOH Time Seen by Provider: 12/29/20 02:48 - History of Present Illness INITIAL COMMENTS - FREE TEXT/NARRATIVE: HISTORY AND PHYSICAL: History of present illness: This is a 65-year-old gentleman with no history of hypertension, diabetes, liver, lung, kidney problems who presents ER today secondary to waking up and feeling a burning sensation in his throat with difficulty swallowing. Patient reports he felt like he was having a hard time swallowing so called EMS and came to the ED. Patient denies any recent fevers, shakes, chills, nausea, vomiting, diarrhea, dysuria, frequency, urgency, chest pain, shortness of breath, abdominal pain. Patient reports that when he came to the ED he asked a nurse for cup of water. After he had a couple order he said he felt much better and feels back to normal. Upon me entering into his room the patient is calling a cab so he can go back home. Patient reports he does drink alcohol. Patient denies any history of GERD or reflux. Review of systems: As per history of present illness and below otherwise all systems reviewed and negative. Past medical history: As per history of present illness and as reviewed below otherwise noncontributory. Surgical history: As per history of present illness and as reviewed below otherwise noncontributory. Social history: No reported history of drug abuse. Family history: As per history of present illness and as reviewed below otherwise noncontributory. Physical exam: This patient was seen and evaluated during the 2019 SARS-CoV-2 novel coronavirus pandemic period. Community viral transmission is ongoing at time of this encounter and the emergency department is operating under pandemic response procedures. Constitutional: Patient is oriented to person, place, and time. Appears well- developed and well-nourished. No distress. HEENT: Moist mucous membranes Head: Normocephalic and atraumatic Eyes: Right eye exhibits no discharge. Left eye exhibits no discharge. No scleral icterus Neck: Normal range of motion. No tracheal deviation present. Cardiovascular: Normal rate and regular rhythm. Pulmonary: Effort normal, no respiratory distress. Abdominal: No distention Musculoskeletal: Normal range of motion Neurologic: Alert and oriented to person, place and time. Skin: Streeter, warm and dry. Psychiatric: Normal mood and affect. Behavior is normal. Judgment and thought content normal. Nursing note and vital signs have been reviewed Diagnostics: EKG date December 30, 2019 21-20 9 AM EKG: As interpreted by ER physician: Donna: Nonspecific ST-T wave abnormalities Normal axis No evidence of ST elevation AR Sinus tachycardia heart rate of 103 Therapeutics: [] Assessment and plan: This is a 65-year-old gentleman who presents to the ER today secondary to difficulty swallowing that resolved upon arrival to the ED after drinking some water provided to him by the nurse. Upon my entrance to the room the patient is calling a cab so he can go home. Patient reports that he has no other symptoms and feels completely normal at this time and does not wish to be here anymore. Patient's EKG and vital signs at this time are all within normal limits. Patient was able to drink fluids in the ED in front of me without any problems. Patient denies any diaphoresis, pain rating down his arms or back, chest discomfort. Patient denies any nausea. Patient reports that he does drink alcohol daily. It is unclear whether his symptoms might be related to reflux symptoms and GERD. I will start the patient on a PPI to assist with the symptoms and have encouraged him to cut back on his drinking. Reassessment at the time of disposition demonstrates that the patient is in no acute distress. The patient has remained stable throughout the entire ED visit and is without objective evidence for acute process requiring urgent intervention or hospitalization. The patient is stable for discharge, counseling is provided as documented above, discussed symptomatic treatment and specific conditions for return. I have spoken with the patient/caregiver and discussed todays findings, in addition to providing specific details for the plan of care. Questions are answered and there is agreement with the plan. Definitive disposition and diagnosis as appropriate pending reevaluation and review of above. - Related Data Allergies Allergy/AdvReac Type Severity Reaction Status Date / Time No Known Allergies Allergy Verified 12/29/20 02:38 Home Meds: Home Meds Omeprazole Magnesium [Prilosec Otc] 20 mg PO DAILY #20 tablet. 12/29/20 [Rx] Past Medical History - Past Health History Medical/Surgical History: Denies Medical/Surgical History HEENT History: Reports: None Cardiovascular History: Reports: High Cholesterol, Hypertension Respiratory History: Reports: None Gastrointestinal History: Reports: GI Bleed Genitourinary History: Reports: None Musculoskeletal History: Reports: None Neurological History: Reports: None Psychiatric History: Reports: None Endocrine/Metabolic History: Reports: None Insulin Pump Model and Matrix Bath Attendant: None Hematologic History: Reports: None Immunologic History: Reports: None Oncologic (Cancer) History: Reports: None Dermatologic History: Reports: None - Infectious Disease History Infectious Disease History: Reports: Novel Coronavirus - Past Surgical History Head Surgeries/Procedures: Reports: None HEENT Surgical History: Reports: None Cardiovascular Surgical History: Reports: None Respiratory Surgical History: Reports: None GI Surgical History: Reports: EGD Male Surgical History: Reports: None Endocrine Surgical History: Reports: None Neurological Surgical History: Reports: None Musculoskeletal Surgical History: Reports: None Oncologic Surgical History: Reports: None Dermatological Surgical History: Reports: None Social & Family History - Family History Family Medical History: No Pertinent Family History Cardiac: Reports: None Respiratory: Reports: None Psychiatric: Reports: None Immunologic: Reports: None - Caffeine Use Caffeine Use: Reports: Coffee Caffeine Use Comment: once in a while use of coffee. - Recreational Drug Use Recreational Drug Use: No ED ROS GENERAL - Review of Systems Review Of Systems: See Below ED EXAM, GENERAL - Physical Exam Exam: See Below Course - Vital Signs Last Recorded V/S: Last Vital Signs Temp 98 F 12/29/20 02:30 Pulse 109 H 12/29/20 02:30 Resp 18 12/29/20 02:30 BP 153/107 H 12/29/20 02:30 Pulse Ox 94 L 12/29/20 02:30 Departure - Departure Time of Disposition: 02:51 Disposition: Home, Self-Care 01 Condition: Good Clinical Impression: Difficulty swallowing GERD (gastroesophageal reflux disease) Qualifiers: Esophagitis presence: esophagitis presence not specified Qualified Code(s): K21.9 - Gastro-esophageal reflux disease without esophagitis - Discharge Information Instructions: Dysphagia, Gastroesophageal Reflux Disease, Adult, [id number] Additional Instructions: You were seen and evaluated in the ER today secondary to transient episode of difficulty swallowing. Upon my arrival to your room, it appears that your symptoms have completely resolved after drinking some water. Please return to the ER if you develop any new or concerning symptoms or if you would wish for further evaluation for the symptoms. This may be related to reflux from the amount of alcohol that he drank. I will start you on a proton pump inhibitor to see if that might help prevent recurrence of the symptoms. The following information is given to patients seen in the emergency department who are being discharged to home. This information is to outline your options for follow-up care. We provide all patients seen in our emergency department with a follow-up referral. The need for follow-up, as well as the timing and circumstances, are variable depending upon the specifics of your emergency department visit. If you don't have a primary care physician on staff, we will provide you with a referral. We always advise you to contact your personal physician following an emergency department visit to inform them of the circumstance of the visit and for follow-up with them and/or the need for any referrals to a consulting specialist. The emergency department will also refer you to a specialist when appropriate. This referral assures that you have the opportunity for follow-up care with a s pecialist. All of these measure are taken in an effort to provide you with optimal care, which includes your follow-up. Under all circumstances we always encourage you to contact your private physici an who remains a resource for coordinating your care. When calling for follow-up care, please make the office aware that this follow-up is from your recent emergency room visit. If for any reason you are refused follow-up, please contact the [facility] Emergency Department at and asked to speak to the emergency department charge nurse. [facility] [address] [place] [address] [id number] Sepsis Event Note (ED) - Focused Exam Vital Signs: Vital Signs Temp Pulse Resp BP Pulse Ox 12/29/20 02:30 98 F 109 H 18 153/107 H 94 L
== END 2020-12-29 03:20 | disposition home or self-care (01) ==
LOC: MW.ED 02:26
DX: R13.10 Dysphagia, unspecified (principal); K21.9 Gastro-esophageal reflux disease without esophagitis; E78.00 Pure hypercholesterolemia, unspecified; I10 Essential (primary) hypertension; Z79.899 Other long term (current) drug therapy; Z86.16 Personal history of COVID-19
CPT/HCPCS: 93005; 93010; 99284; 99284-25

== ENCOUNTER 2021-01-03 03:53 | Emergency (ER) | payer MEDICARE, MEDICAID ==
[2021-01-03] MEDS ORDERED: Sodium Chloride 0.9% 2.5 ML Syringe FLUSH PRN (03:56)
[2021-01-03] MEDS ORDERED: Sodium Chloride 0.9% 10 ML Syringe FLUSH PRN (03:56)
[2021-01-03] MEDS ORDERED: Sodium Chloride 0.9% 1,000 ML IV ONE (03:57)
--- NOTE | 2021-01-03 04:00 | EDM.PDOC ---
<Sukhdev Bruce - Last Filed: 01/03/21 05:46> ED HPI GENERAL MEDICAL PROBLEM - General Chief Complaint: Behavioral/Psych Stated Complaint: FALL Time Seen by Provider: 01/03/21 03:55 - History of Present Illness INITIAL COMMENTS - FREE TEXT/NARRATIVE: History of present illness: [] This patient lives alone says he fell. He told the paramedics his left side of his head hurts because he had it on it table. The nightstand and he said he hit it on was on the other side of the room from where they found him laying. When asked if he had any complaints he said no but he had some mild pain in the left side of his head on second questioning. He denies any LOC. He lives alone. He is well-known to the department. He is often intoxicated when he seen. Review of systems: As per history of present illness and below otherwise all systems reviewed and negative. Past medical history: As per history of present illness and as reviewed below otherwise noncontributory. Surgical history: As per history of present illness and as reviewed below otherwise noncontributory. Social history: No reported history of drug or alcohol abuse. Family history: As per history of present illness and as reviewed below otherwise noncontributory. Physical exam: Constitutional - well developed, well-nourished and in no acute distress HEENT -minimal tenderness in the left temporal area otherwise normocephalic, no evidence of trauma - external nose and mouth normal - no mass in neck and no JVD - mucosae moist EYES - full EOM, PERRL, no icterus - no evidence of inflammation, injection, or drainage Respiratory - no respiratory distress, equal bilateral expansion, lungs clear to auscultation and no abnormal lung sounds Cardiovascular - Regular Rhythm with S1 and S2 appreciated and no murmur, gallop or rub. GI - abdomen soft without distension or organomegaly - normal bowel sounds - no guard or rebound Musculoskeletal no gross deformity of long bones or joints - no tenderness, swelling or edema Neurologic - Alert and oriented times four - CN II-XII grossly intact - motor sensory and coordination symmetrically normal Psychiatric - appropriate mood and affect with normal thought content Hematologic - No petechiae or purpura - mucosa appropriate color and sclera not pale - normal nail bed color and refill Integument - no rash or evidence of trauma - normal turgor Diagnostics: [] Therapeutics: [] Impression: [] Plan: [] Definitive disposition and diagnosis as appropriate pending reevaluation and review of above. Left Head Pain Score (Numeric/FACES): 5 - Related Data Allergies Allergy/AdvReac Type Severity Reaction Status Date / Time No Known Allergies Allergy Verified 12/29/20 02:38 Home Meds: Home Meds Omeprazole Magnesium [Prilosec Otc] 20 mg PO DAILY #20 tablet. 12/29/20 [Rx] Past Medical History - Past Health History Medical/Surgical History: Denies Medical/Surgical History HEENT History: Reports: None Cardiovascular History: Reports: High Cholesterol, Hypertension Respiratory History: Reports: None Gastrointestinal History: Reports: GI Bleed Genitourinary History: Reports: None Musculoskeletal History: Reports: None Neurological History: Reports: None Psychiatric History: Reports: None Endocrine/Metabolic History: Reports: None Insulin Pump Model and Lab Animal Technician: None Hematologic History: Reports: None Immunologic History: Reports: None Oncologic (Cancer) History: Reports: None Dermatologic History: Reports: None - Infectious Disease History Infectious Disease History: Reports: Novel Coronavirus - Past Surgical History Head Surgeries/Procedures: Reports: None HEENT Surgical History: Reports: None Cardiovascular Surgical History: Reports: None Respiratory Surgical History: Reports: None GI Surgical History: Reports: EGD Male Surgical History: Reports: None Endocrine Surgical History: Reports: None Neurological Surgical History: Reports: None Musculoskeletal Surgical History: Reports: None Oncologic Surgical History: Reports: None Dermatological Surgical History: Reports: None Social & Family History - Family History Family Medical History: No Pertinent Family History Cardiac: Reports: None Respiratory: Reports: None Psychiatric: Reports: None Immunologic: Reports: None - Caffeine Use Caffeine Use: Reports: Coffee Caffeine Use Comment: once in a while use of coffee. ED ROS GENERAL - Review of Systems Review Of Systems: Comprehensive ROS is negative, except as noted in HPI. ED EXAM, GENERAL - Physical Exam Exam: See Below Free Text/Narrative:: My physical exam is in the HPI #1 Interpretation EKG Interpretation Comments: EKG Date 01/03/2021 Time 5:28 AM Rhythm sinus Rate 96 QT duration 506. MN 151 QRS axis [address] slightly depressed in some leads. Compared to prior EKG no significant change impression no acute injury Course - Vital Signs Text/Narrative:: 5:44 AM patient woke up briefly and said his chest was bothering him and then he went back to sleep. Departure - Departure Disposition: Home, Self-Care 01 Condition: Good Clinical Impression: Fall Alcohol intoxication Qualifiers: Complication of substance-induced condition: uncomplicated Qualified Code(s): F10.920 - Alcohol use, unspecified with intoxication, uncomplicated - Discharge Information Instructions: Alcohol Intoxication, [id number] Referrals: PCP,None [Primary Care Provider] - Forms: ED Department Discharge Additional Instructions: [facility] - Primary Care [address] [place] [id number] [facility] [address] [place] [id number] The following information is given to patients seen in the emergency department who are being discharged to home. This information is to outline your options for follow-up care. We provide all patients seen in our emergency department with a follow-up referral. The need for follow-up, as well as the timing and circumstances, are variable depending upon the specifics of your emergency department visit. If you don't have a primary care physician on staff, we will provide you with a referral. We always advise you to contact your personal physician following an emergency department visit to inform them of the circumstance of the visit and for follow-up with them and/or the need for any referrals to a consulting specialist. The emergency department will also refer you to a specialist when appropriate. This referral assures that you have the opportunity for follow-up care with a specialist. All of these measure are taken in an effort to provide you with optimal care, which includes your follow-up. Under all circumstances we always encourage you to contact your private physician who remains a resource for coordinating your care. When calling for follow-up care, please make the office aware that this follow-up is from your recent emergency room visit. If for any reason you are refused follow-up, please contact the [facility] Emergency Department at and asked to speak to the emergency department charge nurse. <Alexys Corey - Last Filed: 01/03/21 10:55> Course - Vital Signs Last Recorded V/S: Last Vital Signs Temp 98.2 F 01/03/21 09:49 Pulse 92 01/03/21 09:49 Resp 16 01/03/21 09:49 BP 111/76 01/03/21 09:49 Pulse Ox 95 01/03/21 09:49 - Orders/Labs/Meds Orders: Active Orders 24 hr Category Date Time Status Sodium Chloride 0.9% [Saline Flush] Med 01/03/21 03:56 Active 10 ml FLUSH ASDIRECTED PRN Sodium Chloride 0.9% [Saline Flush] Med 01/03/21 03:56 Active 2.5 ml FLUSH ASDIRECTED PRN Saline Lock Insert [OM.PC] Stat Oth 01/03/21 03:56 Ordered Medication Orders Sodium Chloride (Sodium Chloride 0.9% 10 Ml Syringe) 10 ml FLUSH ASDIRECTED PRN PRN Reason: Keep Vein Open Last Admin: 01/03/21 04:30 Dose: 10 ml Documented by: CHUY Sodium Chloride (Sodium Chloride 0.9% 2.5 Ml Syringe) 2.5 ml FLUSH ASDIRECTED PRN PRN Reason: Keep Vein Open Last Admin: 01/03/21 04:30 Dose: 2.5 ml Documented by: CHUY Labs: Laboratory Tests 01/03/21 Range/Units 06:02 Troponin I < 0.050 (0.000-0.056) ng/mL Meds: Medications Generic Name Dose Route Start Last Admin Trade Name Freq PRN Reason Stop Dose Admin Sodium Chloride 10 ml 01/03/21 03:56 01/03/21 04:30 Sodium Chloride 0.9% 10 Ml Syringe FLUSH 10 ml ASDIRECTED PRN Administration Keep Vein Open Sodium Chloride 2.5 ml 01/03/21 03:56 01/03/21 04:30 Sodium Chloride 0.9% 2.5 Ml Syringe FLUSH 2.5 ml ASDIRECTED PRN Administration Keep Vein Open Discontinued Medications Generic Name Dose Route Start Last Admin Trade Name Freq PRN Reason Stop Dose Admin Sodium Chloride 1,000 mls @ 1,000 mls/hr 01/03/21 03:57 01/03/21 04:29 Normal Saline IV 01/03/21 04:56 1,000 mls/hr .Bolus ONE Administration - Re-Assessments/Exams Free Text/Narrative Re-Assessment/Exam: 01/03/21 10:55 Patient CTs are negative patient able to ambulate and back to baseline will be discharged. Departure - Departure Time of Disposition: 10:55 - Discharge Information *PRESCRIPTION DRUG MONITORING PROGRAM REVIEWED*: Not Applicable *COPY OF PRESCRIPTION DRUG MONITORING REPORT IN PATIENT PATRICK: Not Applicable Sepsis Event Note (ED) - Focused Exam Vital Signs: Vital Signs Temp Pulse Resp BP Pulse Ox 01/03/21 09:49 98.2 F 92 16 111/76 95 01/03/21 08:07 104 H 17 134/87 94 L 01/03/21 07:17 101 H 17 106/87 95 01/03/21 06:32 102 H 18 96/66 95 01/03/21 05:50 96 18 119/76 95 01/03/21 05:25 101 H 18 111/68 94 L 01/03/21 03:55 96.3 F L 98 18 121/86 94 L
--- NOTE | 2021-01-03 06:19 | CR ---
INDICATION: Chest pain TECHNIQUE: Chest 1 views COMPARISON: 12/11/2020 FINDINGS: Cardiovascular and mediastinum: Heart size and vasculature are normal in caliber and appearance. Lungs and pleural spaces: Lungs are clear. No sign of infiltrate or mass. No sign of pleural effusion. No pneumothorax. Bones and soft tissues: No significant findings. IMPRESSION: No acute findings and no significant changes from the prior exam. Dictated by Teofilo Lee MD @ 01/03/2021 6:16:[address] Teofilo Lee @ Jan 03 2021 6:16AM
--- NOTE | 2021-01-03 10:26 | CT ---
INDICATION: Trauma, fall. TECHNIQUE: CT head without contrast. COMPARISON: April 15, 2020. FINDINGS: CSF spaces: Within normal limits for age. Brain parenchyma and extra-axial spaces: The gold-white differentiation is normal. No sign of mass, hemorrhage, or midline shift. No extra-axial fluid collection. Skull base and calvarium: The visualized paranasal sinuses and mastoid air cells demonstrate no acute or significant findings. The visualized orbits are grossly unremarkable. No skull fractures. IMPRESSION: Unremarkable noncontrast head CT. No sign of acute injury. Please note that all CT scans at this facility use dose modulation, iterative reconstruction, and/or weight-based dosing when appropriate to reduce radiation dose to as low as reasonably achievable. Dictated by Teofilo Lee MD @ 01/03/2021 10:24:[address] Teofilo Lee @ Jan 03 2021 10:24AM
--- NOTE | 2021-01-03 10:31 | CT ---
INDICATION: Trauma, fall. TECHNIQUE: CT cervical spine without contrast. COMPARISON: None FINDINGS: Vertebrae: Alignment is normal. There are no fractures or suspicious bony lesions. Discs and facet joints: There are moderate multilevel degenerative changes in the disc spaces and facet joints. Extraspinal findings: Paraspinous soft tissues are unremarkable. IMPRESSION: 1. No sign of acute injury. 2. Multilevel degenerative spondylosis. Please note that all CT scans at this facility use dose modulation, iterative reconstruction, and/or weight-based dosing when appropriate to reduce radiation dose to as low as reasonably achievable. Dictated by Teofilo Lee MD @ 01/03/2021 10:30:[address] Teofilo Lee @ Jan 03 2021 10:30AM
== END 2021-01-03 11:41 | disposition home or self-care (01) ==
LOC: MW.ED 03:53
DX: F10.129 Alcohol abuse with intoxication, unspecified (principal); S09.90XA Unspecified injury of head, initial encounter; I10 Essential (primary) hypertension; Z79.899 Other long term (current) drug therapy; Z86.16 Personal history of COVID-19; W22.09XA Striking against other stationary object, initial encounter
CPT/HCPCS: 36415; 70450; 71045; 72125; 84484; 93005; 99285; J7030

== ENCOUNTER 2021-01-20 00:26 | Emergency (ER) | payer MEDICARE, MEDICAID ==
--- NOTE | 2021-01-20 00:37 | EDM.PDOC ---
ED HPI GENERAL MEDICAL PROBLEM - General Chief Complaint: Chest Pain Stated Complaint: CHEST PAIN Time Seen by Provider: 01/20/21 00:34 Source of Information: Reports: Patient, EMS History Limitations: Reports: Intoxication - History of Present Illness INITIAL COMMENTS - FREE TEXT/NARRATIVE: 65-year-old male who presents today for chest pain. Patient seen in the ED multiple times for the past with similar complaints with alcohol. Patient was drinking today as he declined examination states that he was at home he had a little bit of a flutter in his epigastric area. Currently patient has no chest pain. Admits to drinking today. Denies any nausea vomiting fever chills or shortness of breath. The other pain pain not radiate was not made better or worse with any events. chest area Pain Score (Numeric/FACES): 5 - Related Data Allergies Allergy/AdvReac Type Severity Reaction Status Date / Time No Known Allergies Allergy Verified 01/20/21 00:46 Home Meds: Home Meds Omeprazole Magnesium [Prilosec Otc] 20 mg PO DAILY #20 tablet. 12/29/20 [Rx] Past Medical History - Past Health History Medical/Surgical History: Denies Medical/Surgical History HEENT History: Reports: None Cardiovascular History: Reports: High Cholesterol, Hypertension Respiratory History: Reports: None Gastrointestinal History: Reports: GI Bleed Genitourinary History: Reports: None Musculoskeletal History: Reports: None Neurological History: Reports: None Psychiatric History: Reports: None Endocrine/Metabolic History: Reports: None Insulin Pump Model and Laboratory Inspector: None Hematologic History: Reports: None Immunologic History: Reports: None Oncologic (Cancer) History: Reports: None Dermatologic History: Reports: None - Infectious Disease History Infectious Disease History: Reports: Novel Coronavirus - Past Surgical History Head Surgeries/Procedures: Reports: None HEENT Surgical History: Reports: None Cardiovascular Surgical History: Reports: None Respiratory Surgical History: Reports: None GI Surgical History: Reports: EGD Male Surgical History: Reports: None Endocrine Surgical History: Reports: None Neurological Surgical History: Reports: None Musculoskeletal Surgical History: Reports: None Oncologic Surgical History: Reports: None Dermatological Surgical History: Reports: None Social & Family History - Family History Family Medical History: No Pertinent Family History Cardiac: Reports: None Respiratory: Reports: None Psychiatric: Reports: None Immunologic: Reports: None - Caffeine Use Caffeine Use: Reports: Coffee Caffeine Use Comment: once in a while use of coffee. ED ROS GENERAL - Review of Systems Review Of Systems: See Below Constitutional: Reports: No Symptoms HEENT: Reports: No Symptoms Respiratory: Reports: No Symptoms Cardiovascular: Reports: Chest Pain Endocrine: Reports: No Symptoms GI/Abdominal: Reports: No Symptoms : Reports: No Symptoms Musculoskeletal: Reports: No Symptoms Skin: Reports: No Symptoms Neurological: Reports: No Symptoms Psychiatric: Reports: No Symptoms Hematologic/Lymphatic: Reports: No Symptoms Immunologic: Reports: No Symptoms ED EXAM, GENERAL - Physical Exam Exam: See Below Exam Limited By: No Limitations General Appearance: Alert, WD/WN, No Apparent Distress Head: Atraumatic Respiratory/Chest: No Respiratory Distress, Lungs Clear, Normal Breath Sounds Cardiovascular: Normal Peripheral Pulses, Regular Rate, Rhythm GI/Abdominal: Normal Bowel Sounds, Soft, Non-Tender Extremities: Normal Inspection, Normal Range of Motion Neurological: Alert, Oriented #1 Interpretation EKG Date: 01/20/21 Time: 00:27 Rhythm: Other (sinus tach) Rate (Beats/Min): 104 ST-T: Normal Course - Vital Signs Last Recorded V/S: Last Vital Signs Temp 97.0 F 01/20/21 04:31 Pulse 86 01/20/21 04:31 Resp 18 01/20/21 04:31 BP 118/76 01/20/21 04:31 Pulse Ox 96 01/20/21 04:31 - Orders/Labs/Meds Labs: Laboratory Tests 01/20/21 01/20/21 01/20/21 Range/Units 01:04 01:04 03:50 WBC 5.85 (4.0-11.0) K/uL RBC 4.52 (4.50-5.90) M/uL Hgb 14.3 (13.0-17.0) g/dL Hct 39.7 (38.0-50.0) % MCV 87.8 (80.0-98.0) fL MCH 31.6 (27.0-32.0) pg MCHC 36.0 (31.0-37.0) g/dL RDW Std Deviation 51.3 (28.0-62.0) fl RDW Coeff of Stephane 16 H (11.0-15.0) % Plt Count 168 (150-400) K/uL MPV 11.10 (7.40-12.00) fL Neut % (Auto) 45.3 L (48.0-80.0) % Lymph % (Auto) 41.5 H (16.0-40.0) % Rhea % (Auto) 12.0 (0.0-15.0) % Eos % (Auto) 0.5 (0.0-7.0) % Baso % (Auto) 0.7 (0.0-1.5) % Neut # (Auto) 2.7 (1.4-5.7) K/uL Lymph # (Auto) 2.4 (0.6-2.4) K/uL Rhea # (Auto) 0.7 (0.0-0.8) K/uL Eos # (Auto) 0.0 (0.0-0.7) K/uL Baso # (Auto) 0.0 (0.0-0.1) K/uL Sodium 142 (136-148) mmol/L Potassium 3.2 L (3.5-5.1) mmol/L Chloride 97 L (98-107) mmol/L Carbon Dioxide 34.3 H (21.0-32.0) mmol/L BUN 4 L (7.0-18.0) mg/dL Creatinine 0.7 L (0.8-1.3) mg/dL Est Cr Clr Drug Dosing TNP Estimated GFR (MDRD) > 60.0 ml/min Glucose 98 (74-106) mg/dL Calcium 8.0 L (8.5-10.1) mg/dL Total Bilirubin 0.6 (0.2-1.0) mg/dL AST 101 H (15-37) IU/L ALT 27 (14-63) IU/L Alkaline Phosphatase 112 (46-116) U/L Troponin I < 0.050 < 0.050 (0.000-0.056) ng/mL Total Protein 7.5 (6.4-8.2) g/dL Albumin 3.3 L (3.4-5.0) g/dL Globulin 4.2 H (2.6-4.0) g/dL Albumin/Globulin Ratio 0.8 L (0.9-1.6) Ethyl Alcohol 358 mg/dL Meds: Medications Discontinued Medications Generic Name Dose Route Start Last Admin Trade Name Freq PRN Reason Stop Dose Admin Al Hydroxide/Mg Hydroxide 15 0 ml 01/20/21 01:53 01/20/21 02:09 ml/ Lidocaine HCl 5 ml PO 01/20/21 01:54 20 each ONETIME ONE Administration - Re-Assessments/Exams Free Text/Narrative Re-Assessment/Exam: 01/20/21 01:52 And tropes are negative. Patient frequently complains of chest pain. We will to set patient once patient clinically sober will likely discharge Departure - Departure Time of Disposition: 05:15 Disposition: Home, Self-Care 01 Condition: Good Clinical Impression: Alcohol intoxication Qualifiers: Complication of substance-induced condition: uncomplicated Qualified Code(s): F10.920 - Alcohol use, unspecified with intoxication, uncomplicated Instructions: Nonspecific Chest Pain, Adult, [id number] Referrals: PCP,None [Primary Care Provider] - Forms: ED Department Discharge Additional Instructions: The following information is given to patients seen in the emergency department who are being discharged to home. This information is to outline your options fo r follow-up care. We provide all patients seen in our emergency department with a follow-up referral. The need for follow-up, as well as the timing and circumstances, are variable depending upon the specifics of your emergency department visit. If you don't have a primary care physician on staff, we will provide you with a referral. We always advise you to contact your personal physician following an emergency department visit to inform them of the circumstance of the visit and for follow-up with them and/or the need for any referrals to a consulting specialist. The emergency department will also refer you to a specialist when appropriate. This referral assures that you have the opportunity for follow-up care with a specialist. All of these measure are taken in an effort to provide you with optimal care, which includes your follow-up. Under all circumstances we always encourage you to contact your private physician who remains a resource for coordinating your care. When calling for follow-up care, please make the office aware that this follow-up is from your recent emergency room visit. If for any reason you are refused follow-up, please contact the [facility] Emergency Department at and asked to speak to the emergency department charge nurse. Please follow up with your primary care physician. If you do not have a primary care physician, see below: [facility] [address] [place] [address] My [facility] [address] [place] [address] You are seen today for chest pain but you are also drunk. We recommended you follow-up with your primary care physician or tutor if continue to have symptoms. Sepsis Event Note (ED) - Focused Exam Vital Signs: Vital Signs Temp Pulse Resp BP Pulse Ox 01/20/21 04:31 97.0 F 86 18 118/76 96 01/20/21 02:12 88 18 119/71 96 01/20/21 00:30 96.8 F L 101 H 18 160/110 H 96 - Assessment/Plan Plan: Patient is a 61-year-old male who presents today for chest pain and also EtOH use. Patient has been seen multiple times for the past for this. We again will obtain an EKG x-ray labs and reassess patient.
[2021-01-20 01:30] LABS: BLOOD UREA NITROGEN,BUN 4 mg/dL (7.0-18.0); CARBON DIOXIDE,CO2 34.3 mmol/L (21.0-32.0); CHLORIDE,CL 97 mmol/L (98-107); GLUCOSE RANDOM 98 mg/dL (74-106); POTASSIUM,K 3.2 mmol/L (3.5-5.1); SODIUM,NA 142 mmol/L (136-148)
--- NOTE | 2021-01-20 01:52 | CR ---
HISTORY: Chest pain. COMPARISON: 01/03/2021 FINDINGS: A portable erect AP view of the chest was obtained at 0058 hours. The lungs remain clear. No focal or diffuse infiltrates are present. The heart remains normal in size. The mediastinum is normal in appearance. The osseous structures are normal in appearance for the patient`s age. IMPRESSION: Normal portable chest single view. Dictated by Dudley Natarajan MD @ 01/20/2021 1:51:05 AM (Electronically Signed)
[2021-01-20] MEDS ORDERED: Alum Hydrox/Mag Hydrox/Simeth 15 ML, Lidocaine 2% 5 ML PO ONE ×2 (01:53)
== END 2021-01-20 04:31 | disposition home or self-care (01) ==
LOC: MW.ED 00:26
DX: F10.129 Alcohol abuse with intoxication, unspecified (principal); E78.00 Pure hypercholesterolemia, unspecified; I10 Essential (primary) hypertension; Z86.16 Personal history of COVID-19; Y90.8 Blood alcohol level of 240 mg/100 ml or more
CPT/HCPCS: 36415; 71045; 80053; 80307; 84484; 85025; 93005; 99285; A9270

== ENCOUNTER 2021-01-22 02:36 | Emergency (ER) | payer MEDICARE, MEDICAID ==
[2021-01-22] MEDS ORDERED: Sodium Chloride 0.9% 2.5 ML Syringe FLUSH PRN (02:49)
[2021-01-22] MEDS ORDERED: Pantoprazole 40 MG in Sodium Chloride 0.9% 10 ML IV ONE (02:49)
[2021-01-22] MEDS ORDERED: Sodium Chloride 0.9% 10 ML Syringe FLUSH PRN (02:49)
[2021-01-22] MEDS ORDERED: Alum Hydrox/Mag Hydrox/Simeth 15 ML, Metoclopramide 5 MG, Lidocaine 2% 5 ML PO ONE ×3 (02:50)
--- NOTE | 2021-01-22 02:51 | EDM.PDOC ---
ED HPI GENERAL MEDICAL PROBLEM - General Chief Complaint: Chest Pain Stated Complaint: ALCOHOL Time Seen by Provider: 01/22/21 02:39 - History of Present Illness INITIAL COMMENTS - FREE TEXT/NARRATIVE: History of present illness: [] This patient says that tonight after he drank a lot of alcohol he began to have chest pain. He points to his center of his chest. He is diaphoretic according to him. He is not nauseated. He does have hiccups that are frequent now. Review of systems: As per history of present illness and below otherwise all systems reviewed and negative. Past medical history: As per history of present illness and as reviewed below otherwise noncontributory. Surgical history: As per history of present illness and as reviewed below otherwise noncontributory. Social history: No reported history of drug or alcohol abuse. Family history: As per history of present illness and as reviewed below otherwise noncontributory. Physical exam: Constitutional - well developed, well-nourished and in no acute distress HEENT - normocephalic, no evidence of trauma - external nose and mouth normal - no mass in neck and no JVD - mucosae moist EYES - full EOM, PERRL, no icterus - no evidence of inflammation, injection, or drainage Respiratory - no respiratory distress, equal bilateral expansion, lungs clear to auscultation and no abnormal lung sounds Cardiovascular - Regular Rhythm with S1 and S2 appreciated and no murmur, gallop or rub. GI - abdomen soft without distension or organomegaly - normal bowel sounds - no guard or rebound Musculoskeletal no gross deformity of long bones or joints - no tenderness, swelling or edema Neurologic - Alert and oriented times four - CN II-XII grossly intact - motor sensory and coordination symmetrically normal Psychiatric - appropriate mood and affect with normal thought content Hematologic - No petechiae or purpura - mucosa appropriate color and sclera not pale - normal nail bed color and refill Integument - no rash or evidence of trauma - normal turgor Diagnostics: [] Therapeutics: [] Impression: [] Plan: [] Definitive disposition and diagnosis as appropriate pending reevaluation and review of above. chest area Pain Score (Numeric/FACES): 8 - Related Data Allergies Allergy/AdvReac Type Severity Reaction Status Date / Time No Known Allergies Allergy Verified 01/22/21 02:44 Home Meds: Home Meds Omeprazole Magnesium [Prilosec Otc] 20 mg PO DAILY #20 tablet. 12/29/20 [Rx] Potassium Chloride 20 meq PO DAILY #30 tab.er.prt 01/22/21 [Rx] Past Medical History - Past Health History Medical/Surgical History: Denies Medical/Surgical History HEENT History: Reports: None Cardiovascular History: Reports: High Cholesterol, Hypertension Respiratory History: Reports: None Gastrointestinal History: Reports: GI Bleed Genitourinary History: Reports: None Musculoskeletal History: Reports: None Neurological History: Reports: None Psychiatric History: Reports: None Endocrine/Metabolic History: Reports: None Insulin Pump Model and Client Integration Manager: None Hematologic History: Reports: None Immunologic History: Reports: None Oncologic (Cancer) History: Reports: None Dermatologic History: Reports: None - Infectious Disease History Infectious Disease History: Reports: Novel Coronavirus - Past Surgical History Head Surgeries/Procedures: Reports: None HEENT Surgical History: Reports: None Cardiovascular Surgical History: Reports: None Respiratory Surgical History: Reports: None GI Surgical History: Reports: EGD Male Surgical History: Reports: None Endocrine Surgical History: Reports: None Neurological Surgical History: Reports: None Musculoskeletal Surgical History: Reports: None Oncologic Surgical History: Reports: None Dermatological Surgical History: Reports: None Social & Family History - Family History Family Medical History: No Pertinent Family History Cardiac: Reports: None Respiratory: Reports: None Psychiatric: Reports: None Immunologic: Reports: None - Caffeine Use Caffeine Use: Reports: Coffee Caffeine Use Comment: once in a while use of coffee. - Recreational Drug Use Recreational Drug Use: No ED ROS GENERAL - Review of Systems Review Of Systems: Comprehensive ROS is negative, except as noted in HPI. ED EXAM, GENERAL - Physical Exam Exam: See Below Free Text/Narrative:: My physical exam is in the HPI #2 Interpretation EKG Interpretation Comments: EKG done 01/22/2021 at 2:31 AM sinus rhythm heart rate 91 [place] interval 143 QT than duration 5[address] [place] 60 late transition to R wave in the precordium with some nonspecific ST depressions. Long QT interval. Compared to 01/03/2021 no significant change impression no obvious injury Course - Vital Signs Last Recorded V/S: Last Vital Signs Temp 36.2 C 01/22/21 02:44 Pulse 98 01/22/21 06:38 Resp 16 01/22/21 06:38 BP 105/67 01/22/21 06:38 Pulse Ox 96 01/22/21 06:38 - Orders/Labs/Meds Orders: Active Orders 24 hr Category Date Time Status Lactated Ringers [Ringers, Lactated] 1,000 ml Med 01/22/21 03:59 Active IV NOW Sodium Chloride 0.9% [Saline Flush] Med 01/22/21 02:49 Active 10 ml FLUSH ASDIRECTED PRN Sodium Chloride 0.9% [Saline Flush] Med 01/22/21 02:49 Active 2.5 ml FLUSH ASDIRECTED PRN Saline Lock Insert [OM.PC] Stat Oth 01/22/21 02:49 Ordered Medication Orders Lactated Ringer's (Ringers, Lactated) 1,000 mls @ 250 mls/hr IV NOW STA Stop: 01/22/21 07:58 Last Admin: 01/22/21 04:09 Dose: 250 mls/hr Documented by: TERRENCE Sodium Chloride (Sodium Chloride 0.9% 10 Ml Syringe) 10 ml FLUSH ASDIRECTED PRN PRN Reason: Keep Vein Open Sodium Chloride (Sodium Chloride 0.9% 2.5 Ml Syringe) 2.5 ml FLUSH ASDIRECTED PRN PRN Reason: Keep Vein Open Labs: Laboratory Tests 01/22/21 01/22/21 01/22/21 Range/Units 03:25 03:25 05:55 WBC 5.31 (4.0-11.0) K/uL RBC 4.63 (4.50-5.90) M/uL Hgb 14.9 (13.0-17.0) g/dL Hct 40.1 (38.0-50.0) % MCV 86.6 (80.0-98.0) fL MCH 32.2 H (27.0-32.0) pg MCHC 37.2 H (31.0-37.0) g/dL RDW Std Deviation 52.3 (28.0-62.0) fl RDW Coeff of Stephane 17 H (11.0-15.0) % Plt Count 109 L (150-400) K/uL MPV 9.80 (7.40-12.00) fL Neut % (Auto) 44.6 L (48.0-80.0) % Lymph % (Auto) 41.1 H (16.0-40.0) % [place]re[place] % (Auto) 12.6 (0.0-15.0) % Eos % (Auto) 1.5 (0.0-7.0) % Baso % (Auto) 0.2 (0.0-1.5) % Neut # (Auto) 2.4 (1.4-5.7) K/uL Lymph # (Auto) 2.2 (0.6-2.4) K/uL [place]re[place] # (Auto) 0.7 (0.0-0.8) K/uL Eos # (Auto) 0.1 (0.0-0.7) K/uL Baso # (Auto) 0.0 (0.0-0.1) K/uL Nucleated RBC % 1.1 /100WBC Nucleated RBCs # 0 K/uL Sodium 126 L 126 L (136-148) mmol/L Potassium 2.5 L 2.6 L (3.5-5.1) mmol/L Chloride 86 L 88 L (98-107) mmol/L Carbon Dioxide 27.6 24.5 (21.0-32.0) mmol/L BUN 2 L 2 L (7.0-18.0) mg/dL Creatinine 0.7 L 0.6 L (0.8-1.3) mg/dL Est Cr Clr Drug Dosing TNP TNP Estimated GFR (MDRD) > 60.0 > 60.0 ml/min Glucose 85 84 (74-106) mg/dL Calcium 8.1 L 7.8 L (8.5-10.1) mg/dL Total Bilirubin 1.7 H (0.2-1.0) mg/dL AST 67 H (15-37) IU/L ALT 24 (14-63) IU/L Alkaline Phosphatase 118 H (46-116) U/L Troponin I < 0.050 < 0.050 (0.000-0.056) ng/mL Total Protein 7.4 (6.4-8.2) g/dL Albumin 3.2 L (3.4-5.0) g/dL Globulin 4.2 H (2.6-4.0) g/dL Albumin/Globulin Ratio 0.8 L (0.9-1.6) Lipase 32 L (73-393) U/L Meds: Medications Generic Name Dose Route Start Last Admin Trade Name Freq PRN Reason Stop Dose Admin Lactated Ringer's 1,000 mls @ 250 mls/hr 01/22/21 03:59 01/22/21 04:09 Ringers, Lactated IV 01/22/21 07:58 250 mls/hr NOW STA Administration Sodium Chloride 10 ml 01/22/21 02:49 Sodium Chloride 0.9% 10 Ml Syringe FLUSH ASDIRECTED PRN Keep Vein Open Sodium Chloride 2.5 ml 01/22/21 02:49 Sodium Chloride 0.9% 2.5 Ml Syringe FLUSH ASDIRECTED PRN Keep Vein Open Discontinued Medications Generic Name Dose Route Start Last Admin Trade Name Freq PRN Reason Stop Dose Admin Al Hydroxide/Mg Hydroxide 15 0 ml 01/22/21 02:50 01/22/21 03:14 ml/ Metoclopramide HCl 5 mg/ PO 01/22/21 02:51 25 each Lidocaine HCl 5 ml ONETIME ONE Administration Pantoprazole Sodium 40 mg/ 10 mls @ 300 mls/hr 01/22/21 02:49 01/22/21 03:14 Sodium Chloride IV 01/22/21 02:50 300 mls/hr NOW ONE Administration Potassium Chloride 40 meq 01/22/21 03:59 01/22/21 04:09 Potassium Chloride 10% 20 Meq/15 Ml Soln 15 Ml Ud Cup PO 01/22/21 04:00 Not Given ONETIME ONE Potassium Chloride Confirm 01/22/21 04:03 01/22/21 04:09 Potassium Chloride 10% 20 Meq/15 Ml Soln 30 Ml Ud Cup Administered 01/22/21 04:04 40 meq Dose Administration 40 meq .ROUTE .STK-MED ONE Departure - Departure Time of Disposition: 06:55 Disposition: Home, Self-Care 01 Condition: Good Clinical Impression: Chest pain, Hiccups, Hyponatremia, Hypokalemia - Discharge Information Instructions: Hyponatremia, Hypokalemia, Nonspecific Chest Pain, Adult, [id number], Water Intoxication Referrals: PCP,None [Primary Care Provider] - Forms: ED Department Discharge Additional Instructions: [facility] - Primary Care [address] [place] [id number] [facility] [address] [place] [id number] The following information is given to patients seen in the emergency department who are being discharged to home. This information is to outline your options for follow-up care. We provide all patients seen in our emergency department with a follow-up referral. The need for follow-up, as well as the timing and circumstances, are variable depending upon the specifics of your emergency department visit. If you don't have a primary care physician on staff, we will provide you with a referral. We always advise you to contact your personal physician following an emergency department visit to inform them of the circumstance of the visit and for follow-up with them and/or the need for any referrals to a consulting specialist. The emergency department will also refer you to a specialist when appropriate. This referral assures that you have the opportunity for follow-up care with a specialist. All of these measure are taken in an effort to provide you with optimal care, which includes your follow-up. Under all circumstances we always encourage you to contact your private physician who remains a resource for coordinating your care. When calling for follow-up care, please make the office aware that this follow-up is from your recent emergency room visit. If for any reason you are refused follow-up, please contact the [facility] Emergency Department at and asked to speak to the emergency department charge nurse. Sepsis Event Note (ED) - Focused Exam Vital Signs: Vital Signs Temp Pulse Resp BP Pulse Ox 01/22/21 06:38 98 16 105/67 96 01/22/21 05:05 94 18 124/86 98 01/22/21 02:44 36.2 C 94 18 129/96 H 97 - My Orders Last 24 Hours: My Active Orders 01/22/21 02:49 Sodium Chloride 0.9% [Saline Flush] 10 ml FLUSH ASDIRECTED PRN Sodium Chloride 0.9% [Saline Flush] 2.5 ml FLUSH ASDIRECTED PRN Saline Lock Insert [OM.PC] Stat 01/22/21 03:59 Lactated Ringers [Ringers, Lactated] 1,000 ml IV NOW - Assessment/Plan Last 24 Hours: My Active Orders 01/22/21 02:49 Sodium Chloride 0.9% [Saline Flush] 10 ml FLUSH ASDIRECTED PRN Sodium Chloride 0.9% [Saline Flush] 2.5 ml FLUSH ASDIRECTED PRN Saline Lock Insert [OM.PC] Stat 01/22/21 03:59 Lactated Ringers [Ringers, Lactated] 1,000 ml IV NOW
--- NOTE | 2021-01-22 03:21 | CR ---
Indication: Chest pain Technique: Chest 1 view Comparison: January 20, 2021 Findings/Impression: Normal cardiomediastinal silhouette and pulmonary vasculature. Lungs are hyperexpanded. No focal infiltrate, effusion, or pneumothorax. Osseous structures intact. Dictated by Mami Saldana MD @ 01/22/2021 3:20:48 AM (Electronically Signed)
[2021-01-22 03:52] LABS: BLOOD UREA NITROGEN,BUN 2 mg/dL (7.0-18.0); CARBON DIOXIDE,CO2 27.6 mmol/L (21.0-32.0); CHLORIDE,CL 86 mmol/L (98-107); GLUCOSE RANDOM 85 mg/dL (74-106); LIPASE 32 U/L (73-393); POTASSIUM,K 2.5 mmol/L (3.5-5.1); SODIUM,NA 126 mmol/L (136-148)
[2021-01-22] MEDS ORDERED: Lactated Ringers 1,000 ML IV STA (03:59)
[2021-01-22] MEDS ORDERED: Potassium Chloride 10% 20 MEQ/15 ML Soln 15 ML UD Cup PO ONE (03:59)
[2021-01-22] MEDS ORDERED: Potassium Chloride 10% 20 MEQ/15 ML Soln 30 ML UD Cup ONE (04:03)
[2021-01-22 06:38] LABS: BLOOD UREA NITROGEN,BUN 2 mg/dL (7.0-18.0); CARBON DIOXIDE,CO2 24.5 mmol/L (21.0-32.0); CHLORIDE,CL 88 mmol/L (98-107); GLUCOSE RANDOM 84 mg/dL (74-106); POTASSIUM,K 2.6 mmol/L (3.5-5.1); SODIUM,NA 126 mmol/L (136-148)
== END 2021-01-22 07:14 | disposition home or self-care (01) ==
LOC: MW.ED 02:36
DX: R07.9 Chest pain, unspecified (principal); R06.6 Hiccough; E87.6 Hypokalemia; E87.1 Hypo-osmolality and hyponatremia; E78.00 Pure hypercholesterolemia, unspecified; I10 Essential (primary) hypertension; Z79.899 Other long term (current) drug therapy; Z86.16 Personal history of COVID-19
CPT/HCPCS: 36415; 71045; 80048; 80053; 83690; 84484; 85025; 93005; 96374; 99285; A9270; C9113; J7120

== ENCOUNTER 2021-02-10 22:29 | Inpatient (IN) | payer MEDICARE, MEDICAID ==
[2021-02-10] MEDS ORDERED: Pantoprazole 80 MG in Sodium Chloride 0.9% 100 ML IV SCH (22:45)
[2021-02-10] MEDS ORDERED: Sodium Chloride 0.9% 1,000 ML IV ONE (22:45)
[2021-02-10] MEDS ORDERED: Ondansetron 4 MG/2 ML SDV IVPUSH ONE (22:45)
--- NOTE | 2021-02-10 22:51 | PCM.EKG ---
#1 Interpretation EKG Date: 02/10/21 Time: 22:31 Rhythm: NSR Rate (Beats/Min): 97 [place]: Normal P-Wave: Present QRS: Normal ST-T: Normal (T wave inversion V2-v4) QT: Normal Comparison: Change From Previous EKG (01/22/21) EKG Interpretation Comments: Sinus Rhythm with anteolateral T wave inversions changed from prior
[2021-02-10 23:46] LABS: BLOOD UREA NITROGEN,BUN 5 mg/dL (7.0-18.0); CARBON DIOXIDE,CO2 19.7 mmol/L (21.0-32.0); CHLORIDE,CL 95 mmol/L (98-107); GLUCOSE RANDOM 61 mg/dL (74-106); LIPASE 533 U/L (73-393); POTASSIUM,K 4.1 mmol/L (3.5-5.1); SODIUM,NA 139 mmol/L (136-148)
[2021-02-11] MEDS ORDERED: Sodium Chloride 0.9% 1,000 ML IV SCH (00:15)
[2021-02-11] MEDS ORDERED: Dextrose 5%-0.9% NaCl 1,000 ML IV SCH (00:15)
--- NOTE | 2021-02-11 00:28 | CR ---
Indication: Chest pain and shortness of breath Technique: Chest 1 view Comparison: Chest x-ray 01/22/2021 Findings/Impression: Cardiovascular and mediastinum: Normal heart size with atherosclerotic calcification. Lungs and pleural space: Lungs are clear. No sign of infiltrate or mass. No sign of pleural effusion. No pneumothorax. Bones and soft tissues: No acute findings. Dictated by Vincenzo Henriquez MD @ 02/11/2021 12:26:11 AM (Electronically Signed)
[2021-02-11] MEDS ORDERED: Morphine 4 MG/ML Syringe IVPUSH ONE (00:29)
[2021-02-11] MEDS ORDERED: Morphine 4 MG/ML Syringe ONE (00:29)
[2021-02-11] MEDS ORDERED: Ondansetron 4 MG/2 ML SDV ONE (00:32)
[2021-02-11] MEDS ORDERED: Ondansetron 4 MG/2 ML SDV IVPUSH ONE (00:33)
[2021-02-11] MEDS ORDERED: Iopamidol 755 Mg/ML 100 ML Bottle IVPUSH ONE (00:43)
--- NOTE | 2021-02-11 03:10 | CT ---
Indication: Abdominal pain, vomiting blood Technique: Volumetric multidetector CT images of the chest were obtained after the administration of IV contrast. 100 cc Isovue 370 low osmolar intravenous contrast Comparison: None available. Findings: The thoracic inlet and thyroid gland are unremarkable. The thoracic aorta demonstrates minimal scattered atherosclerotic calcification and is otherwise nonaneurysmal. There is no central filling defect to suggest pulmonary embolism. There is marked fusiform thickening and peripheral inflammatory change of the esophagus from the thoracic inlet to the level of the gastroesophageal junction with moderate hiatal hernia. There is no definite pathologic mediastinal or hilar adenopathy. There is minimal basilar atelectasis and parenchymal scarring predominantly within the right greater than left lung bases with minimal scattered centrilobular emphysematous changes of the upper lobes. There is no evidence of pulmonary mass or suspicious pulmonary nodule. The partially visualized upper abdomen demonstrates marked attic steatosis as well as likely gastritis changes. The thoracic vertebral body heights are grossly maintained with moderate multilevel degenerative disc disease with endplate Schmorl`s defects and subchondral cystic changes. There is demonstration of a somewhat expansile lucent lesion within the left 9th rib. There are no other lucent lesions appreciated within the visualized osseous structures. Impression: Demonstration of marked fusiform thickening and peripheral inflammation of the esophagus commensurate with extensive esophagitis changes. Additional inflammation of the visualized stomach and gastric antrum are appreciated commensurate with likely additional gastritis changes. Re-demonstration of a 15 centimeter expansile lucent lesion within the left 9th rib partially visualized on comparison exam. Otherwise, minimal basilar atelectasis and parenchymal scarring without evidence of dense consolidation. Please note that all CT scans at this facility use dose modulation, iterative reconstruction, and/or weight-based dosing when appropriate to reduce radiation dose to as low as reasonably achievable. Dictated by David Mckee MD @ 02/12/2021 11:57:21 AM (Electronically Signed)
--- NOTE | 2021-02-11 03:14 | CT ---
Indication: Abdominal pain, vomiting blood Technique: Volumetric multidetector CT images of the abdomen and pelvis were obtained after the administration of intravenous contrast. 100 cc Isovue 370 low osmolar intravenous contrast Comparison: CT abdomen and pelvis February 22, 2019 Findings: The lung bases are clear. The liver is enlarged with moderate hepatic steatosis. The portal vein is patent. The gallbladder is unremarkable without evidence of radiopaque calculus. There is no significant common biliary ductal dilatation or abrupt cut off. The spleen is normal in enhancement and size. There is demonstration of a moderate hiatal hernia with marked thickening of the esophagus. There is extensive gastric mucosal hyperemia as well as additional thickening of the gastric antrum. There is mild somewhat indistinctness of the pancreas which may represent developing peripancreatic inflammatory changes. There is mild prominence of the central and proximal pancreatic duct. The adrenal glands are unremarkable. The kidneys demonstrate preserved corticomedullary differentiation without evidence of obstructive uropathy. There is moderate stool seen throughout the with minimal distal colonic diverticulosis. The appendix is unremarkable. There are somewhat shoddy retroperitoneal lymph nodes again seen otherwise there is no evidence of pathologic mesenteric or pelvic sidewall lymph nodes. The aorta is non aneurysmal with moderate atherosclerotic calcification. The solid pelvic viscera are grossly unremarkable. There is no free fluid or free air. There is mild diastasis of the rectus musculature with a small umbilical hernia. The lumbar vertebral body heights are grossly maintained with moderate multilevel degenerative disc disease. Impression: Demonstration of marked thickening of the distal esophagus with extensive gastric mucosal hyperemia and thickening of the gastric antrum commensurate with evolving severe esophagitis changes with additional gastritis and/or peptic ulcer disease changes. There is no evidence of perforation. Moderate hepatomegaly and hepatic steatosis. Questionable mild peripancreatic inflammatory change which could represent minimal pancreatitis changes with mild prominence of the proximal pancreatic duct. Correlate with serum lipase. Please note that all CT scans at this facility use dose modulation, iterative reconstruction, and/or weight-based dosing when appropriate to reduce radiation dose to as low as reasonably achievable. Dictated by David Mckee MD @ 02/12/2021 11:51:29 AM (Electronically Signed)
[2021-02-11] MEDS: Lactated Ringers 1,000 ML IV SCH ×2 (04:17→13:52)
--- NOTE | 2021-02-11 05:29 | EDM.PDOC ---
ED HPI GENERAL MEDICAL PROBLEM - General Chief Complaint: Chest Pain Stated Complaint: CHEST PAIN Time Seen by Provider: 02/10/21 23:02 - History of Present Illness INITIAL COMMENTS - FREE TEXT/NARRATIVE: CHIEF COMPLAINT(S): Chest pain HISTORY OF PRESENT ILLNESS: This is a 65-year-old man with a past medical history of alcohol use disorder, tobacco use disorder, prior history of alcohol withdrawal who comes to the emergency department with a chief complaint of chest pain. The patient states that throughout the day he has been experiencing severe 10 out of 10 chest pain located in the center of his chest without any radiation. He states that he has not had any shortness of breath, diaphoresis but states that he has had vomiting which he describes as bright red blood. He states that he has never had this before. He states that he does have some mild epigastric pain denies any diarrhea, melena, hematochezia. He states that he has not yet tried anything for the pain. He denies any exacerbating factors or relieving factors. REVIEW OF SYSTEMS: Constitutional: Denies fever, chills. Eyes: Denies eye pain Ears, Nose, Mouth, & Throat: Denies earache Cardiovascular: Positive for chest pain Respiratory: Denies shortness of breath Gastrointestinal: Positive for reported hematemesis. Denies diarrhea, hematochezia, melena Genitourinary: Denies hematuria Skin:Denies a rash MSK: Denies joint pain Neurological: Denies blurred vision Psychiatric: Denies depression PAST MEDICAL HISTORY: As per history of present illness and as reviewed below otherwise noncontributory. SURGICAL HISTORY: As per history of present illness and as reviewed below otherwise noncontributory. SOCIAL HISTORY: As per history of present illness and as reviewed below otherwise noncontributory. FAMILY HISTORY: As per history of present illness and as reviewed below otherwise noncontributory. EXAMINATION OF ORGAN SYSTEMS/BODY AREAS: Constitutional: Blood pressure is 152/97, heart rate 100, respiratory rate 15 with an oxygen saturation 96% on room air. Temperature 36.9 General: Elderly man who is in no acute distress. Psychiatric: Appropriate mood and affect. Eyes: No scleral icterus or conjunctival erythema ENMT: Moist mucous membranes. No pharyngeal erythema Cardiovascular: Regular, rate, and rhythm. No gallops, murmurs, or rubs. Bilateral upper extremity pulses symmetric and intact. No peripheral edema. No JVD. Respiratory: Lungs clear to auscultation bilaterally. No wheezes, rales, or rhonchi. Gastrointestinal: Soft, tenderness to palpation in the epigastric region. Nondistended. No rebound or guarding. Normoactive bowel sounds Genitourinary: No suprapubic tenderness Musculoskeletal: Normal range of motion. Skin: No lesions or abrasions. Neurological: Alert, GCS 15 MEDICAL DECISION MAKING AND COURSE IN THE ED WITH INTERPRETATION/REVIEW OF DIAGNOSTIC STUDIES: This is a 65-year-old man with a past medical history of alcohol use disorder, prior history of alcohol withdrawal who comes to the emergency department with acute chest pain with reported hematemesis. At this time we will provide the patient with morphine for pain relief, Zofran for nausea relief, pantoprazole 80 mg, and 1 L of normal saline. Will obtain CBC, CMP, lipase, coags, serum alcohol level and a Covid swab. Will obtain CT of the chest with contrast and CT abdomen pelvis with contrast. Differential includes Rebecca-Mauricio, esophagitis, Boerhaave's, gastritis, ACS. EKG was obtained which was unremarkable. The patient had an episode of emesis which was nonbloody and was not coffee- ground. It was clear. Laboratory: CBC reveals thrombocytopenia with a platelet count of 90. Coags are within normal limits. CMP reveals metabolic acidosis with a bicarbonate of 19.7, hypochloremia at 95, hyperglycemia at 61, hyperbilirubinemia at 1.5, transaminitis with an AST of 77 and alkaline phosphatase of 124. Lipase is 533. Serum ALT level is 240. Covid is negative. The radiological images were viewed by myself along with reading the report from the radiologist. Chest x-ray does not reveal any acute cardiopulmonary process. CT thorax with contrast reveals long segment esophageal wall with trace adjacent fat stranding and mediastinal fluid consistent with diffuse esophagitis. Minimal areas of discoid atelectasis and lucent lesion within the left ninth rib which is unchanged from prior. CT abdomen pelvis with contrast reveals evidence of a small hiatal hernia with esophageal wall thickening consistent with esophagitis and minimal indistinctness around the pancreas with mild dilation of the pancreatic duct. Suggesting mild pancreatitis. After labs and imaging I did discuss admission with the patient. He was amenable to this plan. I contacted Dr. Carmona accepted the patient for admission. DISPOSITION: The patient was admitted to the hospital in stable condition CONDITION: Fair PROCEDURES: None FINAL IMPRESSION(S)/DIAGNOSES: 1. Acute alcoholic pancreatitis 2. Acute chest pain likely secondary to esophagitis 3. Acute metabolic acidosis likely secondary to alcoholic ketoacidosis Luis Carlos Stern M.D. Chest Pain Score (Numeric/FACES): 6 - Related Data Allergies Allergy/AdvReac Type Severity Reaction Status Date / Time No Known Allergies Allergy Verified 01/22/21 02:44 Home Meds: Home Meds Omeprazole Magnesium [Prilosec Otc] 20 mg PO DAILY #20 tablet.dr 12/29/20 [Rx] Potassium Chloride 20 meq PO DAILY #30 tab.er.prt 01/22/21 [Rx] Past Medical History - Past Health History Medical/Surgical History: Denies Medical/Surgical History HEENT History: Reports: None Cardiovascular History: Reports: High Cholesterol, Hypertension Respiratory History: Reports: None Gastrointestinal History: Reports: GI Bleed Genitourinary History: Reports: None Musculoskeletal History: Reports: None Neurological History: Reports: None Psychiatric History: Reports: None Endocrine/Metabolic History: Reports: None Insulin Pump Model and Boat Dispatcher: None Hematologic History: Reports: None Immunologic History: Reports: None Oncologic (Cancer) History: Reports: None Dermatologic History: Reports: None - Infectious Disease History Infectious Disease History: Reports: Novel Coronavirus - Past Surgical History Head Surgeries/Procedures: Reports: None HEENT Surgical History: Reports: None Cardiovascular Surgical History: Reports: None Respiratory Surgical History: Reports: None GI Surgical History: Reports: EGD Male Surgical History: Reports: None Endocrine Surgical History: Reports: None Neurological Surgical History: Reports: None Musculoskeletal Surgical History: Reports: None Oncologic Surgical History: Reports: None Dermatological Surgical History: Reports: None Social & Family History - Family History Family Medical History: No Pertinent Family History Cardiac: Reports: None Respiratory: Reports: None Psychiatric: Reports: None Immunologic: Reports: None - Tobacco Use Tobacco Use Status *Q: Current Every Day Tobacco User Years of Tobacco use: 40 Packs/Tins Daily: 1 - Caffeine Use Caffeine Use: Reports: None Caffeine Use Comment: once in a while use of coffee. - Alcohol Use Days Per Week of Alcohol Use: 1 Number of Drinks Per Day: 1 Total Drinks Per Week: 1 - Recreational Drug Use Recreational Drug Use: No ED ROS GENERAL - Review of Systems Review Of Systems: See Below ED EXAM, GENERAL - Physical Exam Exam: See Below Course - Vital Signs Last Recorded V/S: Last Vital Signs Temp 36.3 C 02/11/21 00:19 Pulse 105 H 02/11/21 04:18 Resp 18 02/11/21 04:18 BP 140/85 02/11/21 04:18 Pulse Ox 95 02/11/21 04:18 - Orders/Labs/Meds Orders: Active Orders 24 hr Category Date Time Status Dextrose 5%-0.9% NaCl [Dextrose 5%-Normal Saline] 1,000 Med 02/11/21 00:15 Active ml IV ASDIRECTED Lactated Ringers [Ringers, Lactated] 1,000 ml Med 02/11/21 04:00 Active IV ASDIRECTED Pantoprazole [ProTONIX IV] 80 mg Med 02/10/21 22:45 Active Sodium Chloride 0.9% [Normal Saline] 100 ml IV .Continuous Medication Orders Pantoprazole Sodium 80 mg/ (Sodium Chloride) 100 mls @ 10 mls/hr IV .Continuous MARCEL Last Admin: 02/11/21 00:05 Dose: 10 mls/hr Documented by: GIGI Dextrose/Sodium Chloride (Dextrose 5%-Normal Saline) 1,000 mls @ 999 mls/hr IV ASDIRECTED MARCEL Last Admin: 02/11/21 00:19 Dose: 999 mls/hr Documented by: GIGI Lactated Ringer's (Ringers, Lactated) 1,000 mls @ 150 mls/hr IV ASDIRECTED MARCEL Last Admin: 02/11/21 04:17 Dose: 150 mls/hr Documented by: SVEN Labs: Laboratory Tests 02/10/21 02/10/21 02/10/21 Range/Units 23:20 23:20 23:20 WBC 6.44 (4.0-11.0) K/uL RBC 4.84 (4.50-5.90) M/uL Hgb 15.9 (13.0-17.0) g/dL Hct 44.9 (38.0-50.0) % MCV 92.8 (80.0-98.0) fL MCH 32.9 H (27.0-32.0) pg MCHC 35.4 (31.0-37.0) g/dL RDW Std Deviation 54.7 (28.0-62.0) fl RDW Coeff of Stephane 16 H (11.0-15.0) % Plt Count 90 L (150-400) K/uL MPV 11.50 (7.40-12.00) fL Neut % (Auto) 77.0 (48.0-80.0) % Lymph % (Auto) 18.5 (16.0-40.0) % Maury % (Auto) 4.3 (0.0-15.0) % Eos % (Auto) 0.0 (0.0-7.0) % Baso % (Auto) 0.2 (0.0-1.5) % Neut # (Auto) 5.0 (1.4-5.7) K/uL Lymph # (Auto) 1.2 (0.6-2.4) K/uL Maury # (Auto) 0.3 (0.0-0.8) K/uL Eos # (Auto) 0.0 (0.0-0.7) K/uL Baso # (Auto) 0.0 (0.0-0.1) K/uL Nucleated RBC % 0.0 /100WBC Nucleated RBCs # 0 K/uL INR 1.08 APTT (18.6-31.3) SEC Sodium 139 (136-148) mmol/L Potassium 4.1 (3.5-5.1) mmol/L Chloride 95 L (98-107) mmol/L Carbon Dioxide 19.7 L (21.0-32.0) mmol/L BUN 5 L (7.0-18.0) mg/dL Creatinine 0.9 (0.8-1.3) mg/dL Est Cr Clr Drug Dosing 80.74 mL/min Estimated GFR (MDRD) > 60.0 ml/min Glucose 61 L (74-106) mg/dL Calcium 8.9 (8.5-10.1) mg/dL Total Bilirubin 1.5 H (0.2-1.0) mg/dL AST 77 H (15-37) IU/L ALT 26 (14-63) IU/L Alkaline Phosphatase 124 H (46-116) U/L Ammonia (19-54) ug/dL Troponin I < 0.050 (0.000-0.056) ng/mL Total Protein 9.0 H (6.4-8.2) g/dL Albumin 3.8 (3.4-5.0) g/dL Globulin 5.2 H (2.6-4.0) g/dL Albumin/Globulin Ratio 0.7 L (0.9-1.6) Lipase 533 H (73-393) U/L Ethyl Alcohol 240 mg/dL SARS-CoV-2 RNA (EMANI) (NEGATIVE) Blood Type Antibody Screen 02/10/21 02/10/21 02/10/21 Range/Units 23:20 23:20 23:40 WBC (4.0-11.0) K/uL RBC (4.50-5.90) M/uL Hgb (13.0-17.0) g/dL Hct (38.0-50.0) % MCV (80.0-98.0) fL MCH (27.0-32.0) pg MCHC (31.0-37.0) g/dL RDW Std Deviation (28.0-62.0) fl RDW Coeff of Stephane (11.0-15.0) % Plt Count (150-400) K/uL MPV (7.40-12.00) fL Neut % (Auto) (48.0-80.0) % Lymph % (Auto) (16.0-40.0) % Maury % (Auto) (0.0-15.0) % Eos % (Auto) (0.0-7.0) % Baso % (Auto) (0.0-1.5) % Neut # (Auto) (1.4-5.7) K/uL Lymph # (Auto) (0.6-2.4) K/uL Maury # (Auto) (0.0-0.8) K/uL Eos # (Auto) (0.0-0.7) K/uL Baso # (Auto) (0.0-0.1) K/uL Nucleated RBC % /100WBC Nucleated RBCs # K/uL INR APTT 25.9 (18.6-31.3) SEC Sodium (136-148) mmol/L Potassium (3.5-5.1) mmol/L Chloride (98-107) mmol/L Carbon Dioxide (21.0-32.0) mmol/L BUN (7.0-18.0) mg/dL Creatinine (0.8-1.3) mg/dL Est Cr Clr Drug Dosing mL/min Estimated GFR (MDRD) ml/min Glucose (74-106) mg/dL Calcium (8.5-10.1) mg/dL Total Bilirubin (0.2-1.0) mg/dL AST (15-37) IU/L ALT (14-63) IU/L Alkaline Phosphatase (46-116) U/L Ammonia 30 (19-54) ug/dL Troponin I (0.000-0.056) ng/mL Total Protein (6.4-8.2) g/dL Albumin (3.4-5.0) g/dL Globulin (2.6-4.0) g/dL Albumin/Globulin Ratio (0.9-1.6) Lipase (73-393) U/L Ethyl Alcohol mg/dL SARS-CoV-2 RNA (EMANI) (NEGATIVE) Blood Type A NEGATIVE Antibody Screen NEGATIVE 02/11/21 Range/Units 01:27 WBC (4.0-11.0) K/uL RBC (4.50-5.90) M/uL Hgb (13.0-17.0) g/dL Hct (38.0-50.0) % MCV (80.0-98.0) fL MCH (27.0-32.0) pg MCHC (31.0-37.0) g/dL RDW Std Deviation (28.0-62.0) fl RDW Coeff of Stephane (11.0-15.0) % Plt Count (150-400) K/uL MPV (7.40-12.00) fL Neut % (Auto) (48.0-80.0) % Lymph % (Auto) (16.0-40.0) % Maury % (Auto) (0.0-15.0) % Eos % (Auto) (0.0-7.0) % Baso % (Auto) (0.0-1.5) % Neut # (Auto) (1.4-5.7) K/uL Lymph # (Auto) (0.6-2.4) K/uL Maury # (Auto) (0.0-0.8) K/uL Eos # (Auto) (0.0-0.7) K/uL Baso # (Auto) (0.0-0.1) K/uL Nucleated RBC % /100WBC Nucleated RBCs # K/uL INR APTT (18.6-31.3) SEC Sodium (136-148) mmol/L Potassium (3.5-5.1) mmol/L Chloride (98-107) mmol/L Carbon Dioxide (21.0-32.0) mmol/L BUN (7.0-18.0) mg/dL Creatinine (0.8-1.3) mg/dL Est Cr Clr Drug Dosing mL/min Estimated GFR (MDRD) ml/min Glucose (74-106) mg/dL Calcium (8.5-10.1) mg/dL Total Bilirubin (0.2-1.0) mg/dL AST (15-37) IU/L ALT (14-63) IU/L Alkaline Phosphatase (46-116) U/L Ammonia (19-54) ug/dL Troponin I (0.000-0.056) ng/mL Total Protein (6.4-8.2) g/dL Albumin (3.4-5.0) g/dL Globulin (2.6-4.0) g/dL Albumin/Globulin Ratio (0.9-1.6) Lipase (73-393) U/L Ethyl Alcohol mg/dL SARS-CoV-2 RNA (EMANI) NEGATIVE (NEGATIVE) Blood Type Antibody Screen Meds: Medications Generic Name Dose Route Start Last Admin Trade Name Freq PRN Reason Stop Dose Admin Pantoprazole Sodium 80 mg/ 100 mls @ 10 mls/hr 02/10/21 22:45 02/11/21 00:05 Sodium Chloride IV 10 mls/hr .Continuous MARCEL Administration Dextrose/Sodium Chloride 1,000 mls @ 999 mls/hr 02/11/21 00:15 02/11/21 00:19 Dextrose 5%-Normal Saline IV 999 mls/hr ASDIRECTED MARCEL Administration Lactated Ringer's 1,000 mls @ 150 mls/hr 02/11/21 04:00 02/11/21 04:17 Ringers, Lactated IV 150 mls/hr ASDIRECTED MARCEL Administration Discontinued Medications Generic Name Dose Route Start Last Admin Trade Name Freq PRN Reason Stop Dose Admin Sodium Chloride 1,000 mls @ 999 mls/hr 02/10/21 22:45 02/10/21 23:28 Normal Saline IV 02/10/21 23:45 999 mls/hr STAT ONE Administration Sodium Chloride 1,000 mls @ 999 mls/hr 02/11/21 00:15 Normal Saline IV ASDIRECTED MARCEL Iopamidol 100 ml 02/11/21 00:43 Iopamidol 755 Mg/Ml 100 Ml Bottle IVPUSH 02/11/21 00:44 ONETIME ONE Morphine Sulfate 4 mg 02/11/21 00:29 02/11/21 00:33 Morphine 4 Mg/Ml Syringe IVPUSH 02/11/21 00:30 4 mg ONETIME ONE Administration Morphine Sulfate Confirm 02/11/21 00:29 02/11/21 00:35 Morphine 4 Mg/Ml Syringe Administered 02/11/21 00:30 Not Given Dose 4 mg .ROUTE .STK-MED ONE Ondansetron HCl 4 mg 02/10/21 22:45 02/10/21 23:28 Ondansetron 4 Mg/2 Ml Sdv IVPUSH 02/10/21 22:46 4 mg ONETIME ONE Administration Ondansetron HCl 4 mg 02/11/21 00:33 02/11/21 00:36 Ondansetron 4 Mg/2 Ml Sdv IVPUSH 02/11/21 00:34 4 mg ONETIME ONE Administration Ondansetron HCl Confirm 02/11/21 00:32 02/11/21 00:43 Ondansetron 4 Mg/2 Ml Sdv Administered 02/11/21 00:33 Not Given Dose 4 mg .ROUTE .STK-MED ONE Departure - Departure Time of Disposition: 04:37 Disposition: Admitted As Inpatient 65 Condition: Fair Clinical Impression: Alcohol intoxication, Pancreatitis - Discharge Information Sepsis Event Note (ED) - Focused Exam Vital Signs: Vital Signs Temp Pulse Resp BP Pulse Ox 02/11/21 04:18 105 H 18 140/85 95 02/11/21 01:06 100 15 137/96 H 100 02/11/21 00:19 36.3 C 116 H 15 142/94 H 99 02/10/21 22:33 36.9 C 100 15 152/97 H 96 - My Orders Last 24 Hours: My Active Orders 02/11/21 00:15 Dextrose 5%-0.9% NaCl [Dextrose 5%-Normal Saline] 1,000 ml IV ASDIRECTED 02/11/21 04:00 Lactated Ringers [Ringers, Lactated] 1,000 ml IV ASDIRECTED - Assessment/Plan Last 24 Hours: My Active Orders 02/11/21 00:15 Dextrose 5%-0.9% NaCl [Dextrose 5%-Normal Saline] 1,000 ml IV ASDIRECTED 02/11/21 04:00 Lactated Ringers [Ringers, Lactated] 1,000 ml IV ASDIRECTED
[2021-02-11] MEDS ORDERED: Morphine 2 MG/ML SYRINGE IVPUSH PRN (06:08)
[2021-02-11] MEDS ORDERED: Ondansetron 4 MG/2 ML SDV IVPUSH PRN (06:09)
--- NOTE | 2021-02-11 08:15 | PCM.HP.2 ---
H&P History of Present Illness - General Date of Service: 02/11/21 Admit Problem/Dx: Admission Diagnosis/Problem Admission Diagnosis/Problem Pancreatitis - History of Present Illness Initial Comments - Free Text/Narative: The patient is a 65-year-old male from [facility], on day 1 of service, with a significant past medical history of alcohol use disorder with withdrawal symptoms and tobacco use, who was admitted to the medical floor due to acute pancreatitis and esophagitis. 48 hours ago, the patient started to have abdominal pain in the lower regions located medially, 10 out of 10 in intensity, burning in nature, which radiates up to the epigastric area. Associated with this abdominal pain is nausea and vomiting, the patient explains that he had 2 episodes of hematemesis which were bright red in color. Upon interview today by bedside the patient had to stop talking on occasion to vomit. Along with this, the patient has had heartburn-like pain shooting up his esophagus causing chest discomfort. He denies any radiation of his chest discomfort to his neck or arms. He denies diaphoresis, shortness of breath, palpitations, feeling faint, or any cardiac history. On further interview, the patient admits to drinking liquor every other day, 4 to 6 ounces, with his last drink being on 02/09/2021. He also admits to a 30-year history of smoking 1/2 pack of cigarettes. He does not use any recreational drugs. His family history is noncontributory. He denies being diagnosed with any medical conditions, allergies, or using any medications. He has never had symptoms like this before. His CBC shows a white blood cell count of 6.44, hemoglobin of 15.9, hematocrit of 44.9, and platelet count of 90. His CMP shows a sodium level 139, potassium level of 4.1, chloride of 95, carbon dioxide of 19.7, BUN of 5, creatinine of 0.9, and a lipase of 533. His chest x-ray shows no acute cardiopulmonary process, and is within normal limits. His CT shows a small hiatal hernia, esophageal wall thickening characteristic of esophagitis, and mild pancreatitis. His EKG shows a sinus rhythm. In the emergency department where he presented, he received morphine for pain 2 mg per IV route as needed, Zofran for nausea and vomiting 4 mg per IV route every 4 hours as needed, he was placed on pantoprazole 80 mg per IV route drip for epigastric pain and heartburn, he received 1 bolus of normal saline and another bolus of normal saline with D5, he was also started on lactated Ringer's maintenance fluids, he was given folic acid 1 mg subcutaneously, he also received thiamine 100 mg in a 100 mL/h IV setting, and lastly received Ativan 1 mg in an IV push every 4 hours for withdrawal symptoms from alcohol use. Chest Pain Score (Numeric/FACES): 6 - Related Data Allergies/Adverse Reactions: Allergies Allergy/AdvReac Type Severity Reaction Status Date / Time No Known Allergies Allergy Verified 01/22/21 02:44 Home Medications: Home Meds Omeprazole Magnesium [Prilosec Otc] 20 mg PO DAILY #20 tablet.dr 12/29/20 [Rx] Potassium Chloride 20 meq PO DAILY #30 tab.er.prt 01/22/21 [Rx] Past Medical History - Past Health History Medical/Surgical History: Denies Medical/Surgical History HEENT History: Reports: None Cardiovascular History: Reports: High Cholesterol, Hypertension Respiratory History: Reports: None Gastrointestinal History: Reports: GI Bleed Genitourinary History: Reports: None Musculoskeletal History: Reports: None Neurological History: Reports: None Psychiatric History: Reports: None Endocrine/Metabolic History: Reports: None Insulin Pump Model and Glycerine Plant Operator: None Hematologic History: Reports: None Immunologic History: Reports: None Oncologic (Cancer) History: Reports: None Dermatologic History: Reports: None - Infectious Disease History Infectious Disease History: Reports: Novel Coronavirus - Past Surgical History Head Surgeries/Procedures: Reports: None HEENT Surgical History: Reports: None Cardiovascular Surgical History: Reports: None Respiratory Surgical History: Reports: None GI Surgical History: Reports: EGD Male Surgical History: Reports: None, Circumcision Endocrine Surgical History: Reports: None Neurological Surgical History: Reports: None Musculoskeletal Surgical History: Reports: None Oncologic Surgical History: Reports: None Dermatological Surgical History: Reports: None Social & Family History - Family History Family Medical History: No Pertinent Family History Cardiac: Reports: None Respiratory: Reports: None GI: Reports: None Psychiatric: Reports: None Immunologic: Reports: None - Tobacco Use Tobacco Use Status *Q: Current Every Day Tobacco User Years of Tobacco use: 20 Packs/Tins Daily: 0.2 Used Tobacco, but Quit: No Second Hand Smoke Exposure: No - Caffeine Use Caffeine Use: Reports: Coffee Caffeine Use Comment: once in a while use of coffee. - Alcohol Use Days Per Week of Alcohol Use: 7 Number of Drinks Per Day: 10 Total Drinks Per Week: 70 Date of Last Drink: 02/11/21 - Recreational Drug Use Recreational Drug Use: No H&P Review of Systems - Review of Systems: Review Of Systems: See Below General: Reports: Fatigue. Denies: Fever, Chills, Diaphoresis, Decreased Appetite HEENT: Denies: Headaches, Post Nasal Drip, Sore Throat Pulmonary: Denies: Shortness of Breath, Wheezing, Pleuritic Chest Pain, Cough Cardiovascular: Reports: Chest Pain. Denies: Palpitations, Dyspnea on Exertion, Orthopnea Gastrointestinal: Reports: Abdominal Pain, Hematemesis, Nausea, Vomiting. Denies: Anorexia, Black Stool, Bloody Stool Genitourinary: Denies: Dysuria, Frequency, Burning Skin: Denies: Diaphoresis Neurological: Denies: Dizziness, Trouble Speaking, Difficulty Walking Exam - Exam Exam: See Below - Vital Signs Vital Signs: Last Vital Signs Temp 98.3 F 02/11/21 06:25 Pulse 78 02/11/21 06:25 Resp 14 02/11/21 06:25 BP 153/85 H 02/11/21 06:25 Pulse Ox 96 02/11/21 06:25 Weight: 363 lb 12.203 oz - Exam General: Alert, Mild Distress HEENT: Other (Mucous membranes dry, poor dentition) Neck: Trachea Midline Lungs: Clear to Auscultation, Normal Respiratory Effort Cardiovascular: Regular Rate, Regular Rhythm GI/Abdominal Exam: Tender, Other (Tenderness upon palpation of epigastric and hypogastric area) Extremities: Other (No pedal edema bilaterally, both legs look dry) - Patient Data Lab Results Last 24 hrs: Laboratory Results - last 24 hr 02/10/21 02/10/21 02/10/21 Range/Units 23:20 23:20 23:20 WBC 6.44 (4.0-11.0) K/uL RBC 4.84 (4.50-5.90) M/uL Hgb 15.9 (13.0-17.0) g/dL Hct 44.9 (38.0-50.0) % MCV 92.8 (80.0-98.0) fL MCH 32.9 H (27.0-32.0) pg MCHC 35.4 (31.0-37.0) g/dL RDW Std Deviation 54.7 (28.0-62.0) fl RDW Coeff of Stephane 16 H (11.0-15.0) % Plt Count 90 L (150-400) K/uL MPV 11.50 (7.40-12.00) fL Neut % (Auto) 77.0 (48.0-80.0) % Lymph % (Auto) 18.5 (16.0-40.0) % [place] % (Auto) 4.3 (0.0-15.0) % Eos % (Auto) 0.0 (0.0-7.0) % Baso % (Auto) 0.2 (0.0-1.5) % Neut # (Auto) 5.0 (1.4-5.7) K/uL Lymph # (Auto) 1.2 (0.6-2.4) K/uL [place] # (Auto) 0.3 (0.0-0.8) K/uL Eos # (Auto) 0.0 (0.0-0.7) K/uL Baso # (Auto) 0.0 (0.0-0.1) K/uL Nucleated RBC % 0.0 /100WBC Nucleated RBCs # 0 K/uL INR 1.08 APTT (18.6-31.3) SEC Sodium 139 (136-148) mmol/L Potassium 4.1 (3.5-5.1) mmol/L Chloride 95 L (98-107) mmol/L Carbon Dioxide 19.7 L (21.0-32.0) mmol/L BUN 5 L (7.0-18.0) mg/dL Creatinine 0.9 (0.8-1.3) mg/dL Est Cr Clr Drug Dosing 80.74 mL/min Estimated GFR (MDRD) > 60.0 ml/min Glucose 61 L (74-106) mg/dL Calcium 8.9 (8.5-10.1) mg/dL Total Bilirubin 1.5 H (0.2-1.0) mg/dL AST 77 H (15-37) IU/L ALT 26 (14-63) IU/L Alkaline Phosphatase 124 H (46-116) U/L Ammonia (19-54) ug/dL Troponin I < 0.050 (0.000-0.056) ng/mL Total Protein 9.0 H (6.4-8.2) g/dL Albumin 3.8 (3.4-5.0) g/dL Globulin 5.2 H (2.6-4.0) g/dL Albumin/Globulin Ratio 0.7 L (0.9-1.6) Lipase 533 H (73-393) U/L Ethyl Alcohol 240 mg/dL SARS-CoV-2 RNA (EMANI) (NEGATIVE) Blood Type Antibody Screen 02/10/21 02/10/21 02/10/21 Range/Units 23:20 23:20 23:40 WBC (4.0-11.0) K/uL RBC (4.50-5.90) M/uL Hgb (13.0-17.0) g/dL Hct (38.0-50.0) % MCV (80.0-98.0) fL MCH (27.0-32.0) pg MCHC (31.0-37.0) g/dL RDW Std Deviation (28.0-62.0) fl RDW Coeff of Stephane (11.0-15.0) % Plt Count (150-400) K/uL MPV (7.40-12.00) fL Neut % (Auto) (48.0-80.0) % Lymph % (Auto) (16.0-40.0) % [place] % (Auto) (0.0-15.0) % Eos % (Auto) (0.0-7.0) % Baso % (Auto) (0.0-1.5) % Neut # (Auto) (1.4-5.7) K/uL Lymph # (Auto) (0.6-2.4) K/uL [place] # (Auto) (0.0-0.8) K/uL Eos # (Auto) (0.0-0.7) K/uL Baso # (Auto) (0.0-0.1) K/uL Nucleated RBC % /100WBC Nucleated RBCs # K/uL INR APTT 25.9 (18.6-31.3) SEC Sodium (136-148) mmol/L Potassium (3.5-5.1) mmol/L Chloride (98-107) mmol/L Carbon Dioxide (21.0-32.0) mmol/L BUN (7.0-18.0) mg/dL Creatinine (0.8-1.3) mg/dL Est Cr Clr Drug Dosing mL/min Estimated GFR (MDRD) ml/min Glucose (74-106) mg/dL Calcium (8.5-10.1) mg/dL Total Bilirubin (0.2-1.0) mg/dL AST (15-37) IU/L ALT (14-63) IU/L Alkaline Phosphatase (46-116) U/L Ammonia 30 (19-54) ug/dL Troponin I (0.000-0.056) ng/mL Total Protein (6.4-8.2) g/dL Albumin (3.4-5.0) g/dL Globulin (2.6-4.0) g/dL Albumin/Globulin Ratio (0.9-1.6) Lipase (73-393) U/L Ethyl Alcohol mg/dL SARS-CoV-2 RNA (EMANI) (NEGATIVE) Blood Type A NEGATIVE Antibody Screen NEGATIVE 02/11/21 Range/Units 01:27 WBC (4.0-11.0) K/uL RBC (4.50-5.90) M/uL Hgb (13.0-17.0) g/dL Hct (38.0-50.0) % MCV (80.0-98.0) fL MCH (27.0-32.0) pg MCHC (31.0-37.0) g/dL RDW Std Deviation (28.0-62.0) fl RDW Coeff of Stephane (11.0-15.0) % Plt Count (150-400) K/uL MPV (7.40-12.00) fL Neut % (Auto) (48.0-80.0) % Lymph % (Auto) (16.0-40.0) % [place] % (Auto) (0.0-15.0) % Eos % (Auto) (0.0-7.0) % Baso % (Auto) (0.0-1.5) % Neut # (Auto) (1.4-5.7) K/uL Lymph # (Auto) (0.6-2.4) K/uL [place] # (Auto) (0.0-0.8) K/uL Eos # (Auto) (0.0-0.7) K/uL Baso # (Auto) (0.0-0.1) K/uL Nucleated RBC % /100WBC Nucleated RBCs # K/uL INR APTT (18.6-31.3) SEC Sodium (136-148) mmol/L Potassium (3.5-5.1) mmol/L Chloride (98-107) mmol/L Carbon Dioxide (21.0-32.0) mmol/L BUN (7.0-18.0) mg/dL Creatinine (0.8-1.3) mg/dL Est Cr Clr Drug Dosing mL/min Estimated GFR (MDRD) ml/min Glucose (74-106) mg/dL Calcium (8.5-10.1) mg/dL Total Bilirubin (0.2-1.0) mg/dL AST (15-37) IU/L ALT (14-63) IU/L Alkaline Phosphatase (46-116) U/L Ammonia (19-54) ug/dL Troponin I (0.000-0.056) ng/mL Total Protein (6.4-8.2) g/dL Albumin (3.4-5.0) g/dL Globulin (2.6-4.0) g/dL Albumin/Globulin Ratio (0.9-1.6) Lipase (73-393) U/L Ethyl Alcohol mg/dL SARS-CoV-2 RNA (EMANI) NEGATIVE (NEGATIVE) Blood Type Antibody Screen Result Diagrams: 02/10/21 23:20 02/10/21 23:20 Sepsis Event Note - Evaluation Sepsis Screening Result: No Definite Risk - Focused Exam Vital Signs: Vital Signs Temp Pulse Resp BP Pulse Ox 02/11/21 06:25 98.3 F 78 14 153/85 H 96 02/11/21 04:18 105 H 18 140/85 95 02/11/21 01:06 100 15 137/96 H 100 02/11/21 00:19 97.4 F 116 H 15 142/94 H 99 02/10/21 22:33 98.5 F 100 15 152/97 H 96 - Problem List (1) Esophagitis SNOMED Code(s): 31314633 ICD Code: K20.90 - ESOPHAGITIS, UNSPECIFIED WITHOUT BLEEDING Status: Acute Current Visit: Yes (2) Pancreatitis SNOMED Code(s): 65827830 ICD Code: K85.90 - ACUTE PANCREATITIS WITHOUT NECROSIS OR INFECTION, UNSP Status: Acute Current Visit: Yes Qualifiers: (3) Abdominal pain SNOMED Code(s): 68680107 ICD Code: R10.9 - UNSPECIFIED ABDOMINAL PAIN Status: Acute Current Visit: No (4) Alcohol abuse with physiological dependence SNOMED Code(s): 60262717, 77281102 ICD Code: F10.20 - ALCOHOL DEPENDENCE, UNCOMPLICATED Status: Acute Current Visit: No (5) Chest pain SNOMED Code(s): 33063345 ICD Code: R07.9 - CHEST PAIN, UNSPECIFIED Status: Acute Current Visit: No Problem List Initiated/Reviewed/Updated: Yes Orders Last 24hrs: Active Orders 24 hr Category Date Time Status Admission Status [Patient Status] [ADT] Stat ADT 02/11/21 04:37 Active NPO Now [Nothing per Oral Now Diet] [DIET] Diet 02/11/21 Breakfast Active Dextrose 5%-0.9% NaCl [Dextrose 5%-Normal Saline] 1,000 Med 02/11/21 00:15 Active ml IV ASDIRECTED Folic Acid Med 02/11/21 09:00 Active 1 mg SUBCUT DAILY LORazepam [Ativan] Med 02/11/21 06:11 Active See Protocol IVPUSH Q4H PRN Lactated Ringers [Ringers, Lactated] 1,000 ml Med 02/11/21 04:00 Active IV ASDIRECTED Morphine Med 02/11/21 06:08 Active 2 mg IVPUSH Q3H PRN Ondansetron [Zofran] Med 02/11/21 06:09 Active 4 mg IVPUSH Q4H PRN Pantoprazole [ProTONIX IV] 80 mg Med 02/10/21 22:45 Active Sodium Chloride 0.9% [Normal Saline] 100 ml IV .Continuous Thiamine [Vitamin B-1] 100 mg Med 02/11/21 09:00 Active Sodium Chloride 0.9% [Normal Saline] 100 ml IV DAILY Medication Orders Folic Acid (Folic Acid 50 Mg/10 Ml Mdv) 1 mg SUBCUT DAILY MARCEL Pantoprazole Sodium 80 mg/ (Sodium Chloride) 100 mls @ 10 mls/hr IV .Continuous MARCEL Last Admin: 02/11/21 00:05 Dose: 10 mls/hr Documented by: GIGI Dextrose/Sodium Chloride (Dextrose 5%-Normal Saline) 1,000 mls @ 999 mls/hr IV ASDIRECTED MARCEL Last Admin: 02/11/21 00:19 Dose: 999 mls/hr Documented by: GIGI Lactated Ringer's (Ringers, Lactated) 1,000 mls @ 150 mls/hr IV ASDIRECTED MARCEL Last Admin: 02/11/21 04:17 Dose: 150 mls/hr Documented by: SVEN Thiamine HCl 100 mg/ Sodium (Chloride) 101 mls @ 202 mls/hr IV DAILY MARCEL Lorazepam (Lorazepam 2 Mg/Ml Sdv) 0 mg IVPUSH Q4H PRN; Protocol PRN Reason: Withdrawal Symptoms Morphine Sulfate (Morphine 2 Mg/Ml Syringe) 2 mg IVPUSH Q3H PRN PRN Reason: Pain Last Admin: 02/11/21 08:08 Dose: 2 mg Documented by: YANNA Ondansetron HCl (Ondansetron 4 Mg/2 Ml Sdv) 4 mg IVPUSH Q4H PRN PRN Reason: Nausea/Vomiting Last Admin: 02/11/21 08:09 Dose: 4 mg Documented by: YANNA Assessment/Plan Comment:: Admit the patient to the medical floor, vitals per unit routine, activity up ad emmie., n.p.o., GI prophylaxis with pantoprazole 40 mg per IV route, DVT prophylaxis with SCDs 1. Pancreatitis -The patient is currently nothing per mouth with respect to diet, will progress diet as patient improves -For pain, the patient is on morphine 2 mg per IV route as needed -For nausea and vomiting, the patient is on Zofran 4 mg per IV route every 4 hours -The patient was given fluids in the emergency department, his lactated Ringer's has been increased to 200 mL/h -The patient is on folic acid 1 mg subcutaneously -The patient is on thiamine 100 mg, 100 mL/h IV -Daily CBC/CMP with lipase levels 2. Alcohol use disorder with withdrawal symptoms -The patient is on Ativan 1 mg per IV route every 4 hours as needed, WA protocol -We will continue to monitor agitation/seizure risk and treat the patient accordingly 3. Esophagitis -The patient's chest pain/discomfort that he presented with is most likely secondary to reflux of stomach acid which is irritating the esophagus -For this, the patient was first on a pantoprazole drip of 80 mg per IV route, this has been transitioned to pantoprazole 40 mg IV every 24 hours
[2021-02-11] MEDS ORDERED: Thiamine 100 MG in Sodium Chloride 0.9% 100 ML IV SCH (09:00)
[2021-02-11] MEDS: Folic Acid 50 MG/10 ML MDV SUBCUT SCH (09:58)
[2021-02-11] MEDS: Thiamine 200 MG/2 ML MDV IV SCH (09:59)
[2021-02-11] MEDS ORDERED: Pantoprazole 40 MG in Sodium Chloride 0.9% 10 ML IV SCH (11:15)
[2021-02-11] MEDS: LORazepam 2 MG/ML SDV IVPUSH PRN ×3 (12:48→18:20)
[2021-02-11] MEDS: Pantoprazole 40 MG in Sodium Chloride 0.9% 10 ML IV SCH (17:59)
[2021-02-12] MEDS: Lactated Ringers 1,000 ML IV SCH ×3 (06:36→23:01)
[2021-02-12 07:01] LABS: BLOOD UREA NITROGEN,BUN 5 mg/dL (7.0-18.0); CARBON DIOXIDE,CO2 24.9 mmol/L (21.0-32.0); CHLORIDE,CL 93 mmol/L (98-107); GLUCOSE RANDOM 159 mg/dL (74-106); LIPASE 343 U/L (73-393); POTASSIUM,K 3.3 mmol/L (3.5-5.1); SODIUM,NA 136 mmol/L (136-148)
[2021-02-12] MEDS ORDERED: Potassium Chloride Riders 40 MEQ in Premix Bag 1 BAG IV ONE (07:56)
[2021-02-12] MEDS: Folic Acid 50 MG/10 ML MDV SUBCUT SCH (08:28)
[2021-02-12] MEDS: Thiamine 200 MG/2 ML MDV IV SCH (08:28)
--- NOTE | 2021-02-12 15:40 | PCM.PN ---
- General Info Date of Service: 02/12/21 Subjective Update: The patient is a 65-year-old male from [facility], on day 2 of service, with a significant past medical history of alcohol use disorder with withdrawal symptoms and tobacco use, who was admitted to the hospital for pancreatitis and alcohol withdrawal. Upon interview today the patient states that his pain in his abdomen has subsided however he continues to have slight nausea. He addressed concerns for transitioning from nothing per oral to clear liquid diet. He was given a clear liquid diet, however that had to be stopped because the patient started throwing up blood. He has been transitioned back to n.p.o. With respect to his withdrawal symptoms, the patient has not shown any signs of agitation or seizure and has Ativan 1 mg per IV every 4 hours on board. He did have some hypokalemia this morning and was given IV potassium. His platelet lev els on CBC are at the lower level of normal and may need to be repeated if they continue to plummet. The patient has no other complaints at this time. - Review of Systems General: Reports: Fatigue, Appetite. Denies: Fever HEENT: Denies: Headaches, Sore Throat Pulmonary: Denies: Shortness of Breath, Cough Cardiovascular: Denies: Chest Pain Gastrointestinal: Reports: Nausea, Vomiting. Denies: Abdominal Pain Genitourinary: Denies: Dysuria - Patient Data Vitals - Most Recent: Last Vital Signs Temp 98 F 02/12/21 10:18 Pulse 107 H 02/12/21 10:18 Resp 16 02/12/21 10:18 BP 146/101 H 02/12/21 10:18 Pulse Ox 96 02/12/21 10:18 Weight - Most Recent: 131 lb 2.801 oz Lab Results Last 24 Hours: Laboratory Results - last 24 hr 02/12/21 02/12/21 Range/Units 05:25 05:25 WBC 5.18 (4.0-11.0) K/uL RBC 4.68 (4.50-5.90) M/uL Hgb 15.4 (13.0-17.0) g/dL Hct 42.8 (38.0-50.0) % MCV 91.5 (80.0-98.0) fL MCH 32.9 H (27.0-32.0) pg MCHC 36.0 (31.0-37.0) g/dL RDW Std Deviation 52.4 (28.0-62.0) fl RDW Coeff of Stephane 16 H (11.0-15.0) % Plt Count 52 L (150-400) K/uL Neut % (Auto) 63.5 (48.0-80.0) % Lymph % (Auto) 24.7 (16.0-40.0) % [place] % (Auto) 11.6 (0.0-15.0) % Eos % (Auto) 0.0 (0.0-7.0) % Baso % (Auto) 0.2 (0.0-1.5) % Neut # (Auto) 3.3 (1.4-5.7) K/uL Lymph # (Auto) 1.3 (0.6-2.4) K/uL [place] # (Auto) 0.6 (0.0-0.8) K/uL Eos # (Auto) 0.0 (0.0-0.7) K/uL Baso # (Auto) 0.0 (0.0-0.1) K/uL Nucleated RBC % 0.0 /100WBC Nucleated RBCs # 0 K/uL Sodium 136 (136-148) mmol/L Potassium 3.3 L (3.5-5.1) mmol/L Chloride 93 L (98-107) mmol/L Carbon Dioxide 24.9 (21.0-32.0) mmol/L BUN 5 L (7.0-18.0) mg/dL Creatinine 0.6 L (0.8-1.3) mg/dL Est Cr Clr Drug Dosing 121.11 mL/min Estimated GFR (MDRD) > 60.0 ml/min Glucose 159 H (74-106) mg/dL Calcium 9.1 (8.5-10.1) mg/dL Total Bilirubin 3.1 H (0.2-1.0) mg/dL AST 68 H (15-37) IU/L ALT 23 (14-63) IU/L Alkaline Phosphatase 112 (46-116) U/L Total Protein 8.2 (6.4-8.2) g/dL Albumin 3.7 (3.4-5.0) g/dL Globulin 4.5 H (2.6-4.0) g/dL Albumin/Globulin Ratio 0.8 L (0.9-1.6) Lipase 343 (73-393) U/L Med Orders - Current: Current Medications Folic Acid (Folic Acid 50 Mg/10 Ml Mdv) 1 mg SUBCUT DAILY [facility] Last Admin: 02/12/21 08:28 Dose: 1 mg Documented by: Lactated Ringer's (Ringers, Lactated) 1,000 mls @ 200 mls/hr IV ASDIRECTED [facility] Last Admin: 02/12/21 06:36 Dose: 200 mls/hr Documented by: Pantoprazole Sodium 40 mg/ (Sodium Chloride) 10 mls @ 300 mls/hr IV Q24H [facility] Last Admin: 02/11/21 17:59 Dose: 300 mls/hr Documented by: Lorazepam (Lorazepam 2 Mg/Ml Sdv) 0 mg IVPUSH Q4H PRN; Protocol PRN Reason: Withdrawal Symptoms Last Admin: 02/11/21 18:20 Dose: 1 mg Documented by: Morphine Sulfate (Morphine 2 Mg/Ml Syringe) 2 mg IVPUSH Q3H PRN PRN Reason: Pain Last Admin: 02/11/21 08:08 Dose: 2 mg Documented by: Ondansetron HCl (Ondansetron 4 Mg/2 Ml Sdv) 4 mg IVPUSH Q4H PRN PRN Reason: Nausea/Vomiting Last Admin: 02/11/21 08:09 Dose: 4 mg Documented by: Thiamine HCl (Thiamine 200 Mg/2 Ml Mdv) 100 mg IV DAILY [facility] Last Admin: 02/12/21 08:28 Dose: 100 mg Documented by: Discontinued Medications Pantoprazole Sodium 80 mg/ (Sodium Chloride) 100 mls @ 10 mls/hr IV .Continuous [facility] Last Admin: 02/11/21 00:05 Dose: 10 mls/hr Documented by: Sodium Chloride (Normal Saline) 1,000 mls @ 999 mls/hr IV STAT ONE Stop: 02/10/21 23:45 Last Admin: 02/10/21 23:28 Dose: 999 mls/hr Documented by: Sodium Chloride (Normal Saline) 1,000 mls @ 999 mls/hr IV ASDIRECTED [facility] Dextrose/Sodium Chloride (Dextrose 5%-Normal Saline) 1,000 mls @ 999 mls/hr IV ASDIRECTED [facility] Last Admin: 02/11/21 00:19 Dose: 999 mls/hr Documented by: Pantoprazole Sodium 40 mg/ (Sodium Chloride) 10 mls @ 300 mls/hr IV Q24H [facility] Potassium Chloride 40 meq/ (Premix) 100 mls @ 25 mls/hr IV ONETIME ONE Stop: 02/12/21 11:55 Last Admin: 02/12/21 09:04 Dose: 25 mls/hr Documented by: Iopamidol (Iopamidol 755 Mg/Ml 100 Ml Bottle) 100 ml IVPUSH ONETIME ONE Stop: 02/11/21 00:44 Last Admin: 02/11/21 07:46 Dose: Not Given Documented by: Morphine Sulfate (Morphine 4 Mg/Ml Syringe) 4 mg IVPUSH ONETIME ONE Stop: 02/11/21 00:30 Last Admin: 02/11/21 00:33 Dose: 4 mg Documented by: Morphine Sulfate (Morphine 4 Mg/Ml Syringe) Confirm Administered Dose 4 mg .ROUTE .STK-MED ONE Stop: 02/11/21 00:30 Last Admin: 02/11/21 00:35 Dose: Not Given Documented by: Ondansetron HCl (Ondansetron 4 Mg/2 Ml Sdv) 4 mg IVPUSH ONETIME ONE Stop: 02/10/21 22:46 Last Admin: 02/10/21 23:28 Dose: 4 mg Documented by: Ondansetron HCl (Ondansetron 4 Mg/2 Ml Sdv) 4 mg IVPUSH ONETIME ONE Stop: 02/11/21 00:34 Last Admin: 02/11/21 00:36 Dose: 4 mg Documented by: Ondansetron HCl (Ondansetron 4 Mg/2 Ml Sdv) Confirm Administered Dose 4 mg .ROUTE .STK-MED ONE Stop: 02/11/21 00:33 Last Admin: 02/11/21 00:43 Dose: Not Given Documented by: - Exam Quality Assessment: Supplemental Oxygen General: Alert, Oriented, Cooperative HEENT: Other (Dry mucous membranes) Neck: Trachea Midline Lungs: Clear to Auscultation, Normal Respiratory Effort Cardiovascular: Regular Rate, Regular Rhythm GI/Abdominal Exam: Normal Bowel Sounds, Soft - Patient Data Lab Results Last 24 hrs: Laboratory Results - last 24 hr 02/12/21 02/12/21 Range/Units 05:25 05:25 WBC 5.18 (4.0-11.0) K/uL RBC 4.68 (4.50-5.90) M/uL Hgb 15.4 (13.0-17.0) g/dL Hct 42.8 (38.0-50.0) % MCV 91.5 (80.0-98.0) fL MCH 32.9 H (27.0-32.0) pg MCHC 36.0 (31.0-37.0) g/dL RDW Std Deviation 52.4 (28.0-62.0) fl RDW Coeff of Stephane 16 H (11.0-15.0) % Plt Count 52 L (150-400) K/uL Neut % (Auto) 63.5 (48.0-80.0) % Lymph % (Auto) 24.7 (16.0-40.0) % [place] % (Auto) 11.6 (0.0-15.0) % Eos % (Auto) 0.0 (0.0-7.0) % Baso % (Auto) 0.2 (0.0-1.5) % Neut # (Auto) 3.3 (1.4-5.7) K/uL Lymph # (Auto) 1.3 (0.6-2.4) K/uL [place] # (Auto) 0.6 (0.0-0.8) K/uL Eos # (Auto) 0.0 (0.0-0.7) K/uL Baso # (Auto) 0.0 (0.0-0.1) K/uL Nucleated RBC % 0.0 /100WBC Nucleated RBCs # 0 K/uL Sodium 136 (136-148) mmol/L Potassium 3.3 L (3.5-5.1) mmol/L Chloride 93 L (98-107) mmol/L Carbon Dioxide 24.9 (21.0-32.0) mmol/L BUN 5 L (7.0-18.0) mg/dL Creatinine 0.6 L (0.8-1.3) mg/dL Est Cr Clr Drug Dosing 121.11 mL/min Estimated GFR (MDRD) > 60.0 ml/min Glucose 159 H (74-106) mg/dL Calcium 9.1 (8.5-10.1) mg/dL Total Bilirubin 3.1 H (0.2-1.0) mg/dL AST 68 H (15-37) IU/L ALT 23 (14-63) IU/L Alkaline Phosphatase 112 (46-116) U/L Total Protein 8.2 (6.4-8.2) g/dL Albumin 3.7 (3.4-5.0) g/dL Globulin 4.5 H (2.6-4.0) g/dL Albumin/Globulin Ratio 0.8 L (0.9-1.6) Lipase 343 (73-393) U/L Result Diagrams: 02/12/21 05:25 02/12/21 05:25 Sepsis Event Note - Evaluation Sepsis Screening Result: No Definite Risk - Focused Exam Vital Signs: Vital Signs Temp Pulse Resp BP Pulse Ox 02/12/21 10:18 98 F 107 H 16 146/101 H 96 02/12/21 07:00 98.1 F 116 H 17 133/100 H 96 - Problem List & Annotations (1) Esophagitis SNOMED Code(s): 22869163 Code(s): K20.90 - ESOPHAGITIS, UNSPECIFIED WITHOUT BLEEDING Status: Acute Current Visit: Yes (2) Pancreatitis SNOMED Code(s): 15192603 Code(s): K85.90 - ACUTE PANCREATITIS WITHOUT NECROSIS OR INFECTION, UNSP Status: Acute Current Visit: Yes Qualifiers: (3) Abdominal pain SNOMED Code(s): 15906917 Code(s): R10.9 - UNSPECIFIED ABDOMINAL PAIN Status: Acute Current Visit: No (4) Alcohol abuse with physiological dependence SNOMED Code(s): 17377564, 90923796 Code(s): F10.20 - ALCOHOL DEPENDENCE, UNCOMPLICATED Status: Acute Current Visit: No (5) Chest pain SNOMED Code(s): 82464783 Code(s): R07.9 - CHEST PAIN, UNSPECIFIED Status: Acute Current Visit: No - Problem List Review Problem List Initiated/Reviewed/Updated: Yes - My Orders Last 24 Hours: My Active Orders 02/11/21 17:15 Pantoprazole [ProTONIX IV] 40 mg Sodium Chloride 0.9% [Normal Saline] 10 ml IV Q24H 02/11/21 19:08 Code Status [Resuscitation Status] Routine 02/13/21 05:11 CBC WITH AUTO DIFF [HEME] AM CMP [COMPREHENSIVE METABOLIC PN,CMP] [CHEM] AM LIPASE [CHEM] AM 02/14/21 05:11 CBC WITH AUTO DIFF [HEME] AM CMP [COMPREHENSIVE METABOLIC PN,CMP] [CHEM] AM 02/15/21 05:11 CBC WITH AUTO DIFF [HEME] AM CMP [COMPREHENSIVE METABOLIC PN,CMP] [CHEM] AM 02/16/21 05:11 CBC WITH AUTO DIFF [HEME] AM CMP [COMPREHENSIVE METABOLIC PN,CMP] [CHEM] AM - Plan Plan:: 1. Pancreatitis -The patient was originally on n.p.o., and we tried a clear liquid diet however the patient had an episode of hematemesis, will transition back to n.p.o. -For pain, the patient is on morphine 2 mg per IV route as needed -For nausea and vomiting, the patient is on Zofran 4 mg per IV route every 4 hours -Continue LR 200 mL/h -The patient is on folic acid 1 mg subcutaneously -The patient is on thiamine 100 mg, 100 mL/h IV -Daily CBC/CMP 2. Alcohol use disorder with withdrawal symptoms -The patient is on Ativan 1 mg per IV route every 4 hours as needed, CIWA protocol -We will continue to monitor agitation/seizure risk and treat the patient accordingly 3. Esophagitis -Continue pantoprazole 40 mg IV every 24 hours
[2021-02-12] MEDS: Pantoprazole 40 MG in Sodium Chloride 0.9% 10 ML IV SCH (17:53)
[2021-02-12] MEDS: LORazepam 2 MG/ML SDV IVPUSH PRN ×2 (21:22→23:12)
[2021-02-13] MEDS: LORazepam 2 MG/ML SDV IVPUSH PRN ×3 (03:05→10:37)
[2021-02-13] MEDS: Lactated Ringers 1,000 ML IV SCH ×3 (03:53→16:26)
[2021-02-13 08:11] LABS: BLOOD UREA NITROGEN,BUN 5 mg/dL (7.0-18.0); CARBON DIOXIDE,CO2 27.7 mmol/L (21.0-32.0); CHLORIDE,CL 92 mmol/L (98-107); GLUCOSE RANDOM 108 mg/dL (74-106); LIPASE 99 U/L (73-393); POTASSIUM,K 5.1 mmol/L (3.5-5.1); SODIUM,NA 134 mmol/L (136-148)
[2021-02-13] MEDS: Thiamine 200 MG/2 ML MDV IV SCH (08:56)
[2021-02-13] MEDS: Folic Acid 50 MG/10 ML MDV SUBCUT SCH (09:32)
[2021-02-13] MEDS ORDERED: Magnesium Sulfate/Water 4 GM in Premix Bag 1 BAG IV ONE (11:36)
--- NOTE | 2021-02-13 12:53 | PCM.PN ---
- General Info Date of Service: 02/13/21 Subjective Update: The patient is a 65-year-old male from [facility], on day 3 of service, with a significant past medical history of alcohol use disorder with withdrawal symptoms and tobacco use, who was admitted to the hospital for pancreatitis and alcohol withdrawal. Upon interview today the patient continues to have abdominal pain but denies nausea and vomiting. As a result we will transition him to a clear liquid diet in hopes that he could tolerate it. We will touch base with nursing staff after he has eaten to see how he does. He had tremors and anxiety last night and was given doses of Ativan. His magnesium was markedly decreased and as a result we have repleted it with a 4 g IV loading dose. We have also increased his thiamine from 100 mg IV to 250 mg IV. The patient has difficulty walking and as a result we have touched base with physical therapy to come assess the patient. The patient has no other complaints at this time. - Review of Systems General: Reports: Fatigue. Denies: Fever, Weakness, Chills HEENT: Denies: Headaches Pulmonary: Denies: Shortness of Breath, Pleuritic Chest Pain, Cough Cardiovascular: Denies: Chest Pain, Palpitations Gastrointestinal: Reports: Abdominal Pain. Denies: Nausea, Vomiting Genitourinary: Denies: Dysuria - Patient Data Vitals - Most Recent: Last Vital Signs Temp 97.7 F 02/13/21 09:17 Pulse 105 H 02/13/21 09:17 Resp 14 02/13/21 09:17 BP 136/94 H 02/13/21 09:17 Pulse Ox 99 02/13/21 09:17 Weight - Most Recent: 131 lb 2.801 oz I&O - Last 24 Hours: Intake & Output 02/12/21 02/13/21 02/13/21 22:59 06:59 14:59 Intake Total 1200 Output Total 400 Balance 1200 -400 Lab Results Last 24 Hours: Laboratory Results - last 24 hr 02/13/21 02/13/21 02/13/21 Range/Units 05:30 05:45 10:51 WBC 6.44 (4.0-11.0) K/uL RBC 4.47 L (4.50-5.90) M/uL Hgb 14.9 (13.0-17.0) g/dL Hct 41.4 (38.0-50.0) % MCV 92.6 (80.0-98.0) fL MCH 33.3 H (27.0-32.0) pg MCHC 36.0 (31.0-37.0) g/dL RDW Std Deviation 51.1 (28.0-62.0) fl RDW Coeff of Stephane 16 H (11.0-15.0) % Plt Count 41 L (150-400) K/uL Neut % (Auto) 61.4 (48.0-80.0) % Lymph % (Auto) 28.0 (16.0-40.0) % [place] % (Auto) 10.1 (0.0-15.0) % Eos % (Auto) 0.3 (0.0-7.0) % Baso % (Auto) 0.2 (0.0-1.5) % Neut # (Auto) 4.0 (1.4-5.7) K/uL Lymph # (Auto) 1.8 (0.6-2.4) K/uL [place] # (Auto) 0.7 (0.0-0.8) K/uL Eos # (Auto) 0.0 (0.0-0.7) K/uL Baso # (Auto) 0.0 (0.0-0.1) K/uL Sodium 134 L (136-148) mmol/L Potassium 5.1 (3.5-5.1) mmol/L Chloride 92 L (98-107) mmol/L Carbon Dioxide 27.7 (21.0-32.0) mmol/L BUN 5 L (7.0-18.0) mg/dL Creatinine 0.3 L (0.8-1.3) mg/dL Est Cr Clr Drug Dosing 203.84 mL/min Estimated GFR (MDRD) > 60.0 ml/min Glucose 108 H (74-106) mg/dL Calcium 8.7 (8.5-10.1) mg/dL Magnesium 0.9 L (1.8-2.4) mg/dL Total Bilirubin 3.8 H (0.2-1.0) mg/dL AST 40 H (15-37) IU/L ALT 19 (14-63) IU/L Alkaline Phosphatase 98 (46-116) U/L Total Protein 7.4 (6.4-8.2) g/dL Albumin 3.2 L (3.4-5.0) g/dL Globulin 4.2 H (2.6-4.0) g/dL Albumin/Globulin Ratio 0.8 L (0.9-1.6) Lipase 99 (73-393) U/L Vitamin B12 (193-986) pg/mL 02/13/21 Range/Units 10:51 WBC (4.0-11.0) K/uL RBC (4.50-5.90) M/uL Hgb (13.0-17.0) g/dL Hct (38.0-50.0) % MCV (80.0-98.0) fL MCH (27.0-32.0) pg MCHC (31.0-37.0) g/dL RDW Std Deviation (28.0-62.0) fl RDW Coeff of Stephane (11.0-15.0) % Plt Count (150-400) K/uL Neut % (Auto) (48.0-80.0) % Lymph % (Auto) (16.0-40.0) % [place] % (Auto) (0.0-15.0) % Eos % (Auto) (0.0-7.0) % Baso % (Auto) (0.0-1.5) % Neut # (Auto) (1.4-5.7) K/uL Lymph # (Auto) (0.6-2.4) K/uL [place] # (Auto) (0.0-0.8) K/uL Eos # (Auto) (0.0-0.7) K/uL Baso # (Auto) (0.0-0.1) K/uL Sodium (136-148) mmol/L Potassium (3.5-5.1) mmol/L Chloride (98-107) mmol/L Carbon Dioxide (21.0-32.0) mmol/L BUN (7.0-18.0) mg/dL Creatinine (0.8-1.3) mg/dL Est Cr Clr Drug Dosing mL/min Estimated GFR (MDRD) ml/min Glucose (74-106) mg/dL Calcium (8.5-10.1) mg/dL Magnesium (1.8-2.4) mg/dL Total Bilirubin (0.2-1.0) mg/dL AST (15-37) IU/L ALT (14-63) IU/L Alkaline Phosphatase (46-116) U/L Total Protein (6.4-8.2) g/dL Albumin (3.4-5.0) g/dL Globulin (2.6-4.0) g/dL Albumin/Globulin Ratio (0.9-1.6) Lipase (73-393) U/L Vitamin B12 828 (193-986) pg/mL Med Orders - Current: Current Medications Folic Acid (Folic Acid 50 Mg/10 Ml Mdv) 1 mg SUBCUT DAILY [facility] Last Admin: 02/13/21 09:32 Dose: 1 mg Documented by: Lactated Ringer's (Ringers, Lactated) 1,000 mls @ 200 mls/hr IV ASDIRECTED [facility] Last Admin: 02/13/21 08:56 Dose: 200 mls/hr Documented by: Pantoprazole Sodium 40 mg/ (Sodium Chloride) 10 mls @ 300 mls/hr IV Q24H [facility] Last Admin: 02/12/21 17:53 Dose: 300 mls/hr Documented by: Magnesium Sulfate 4 gm/ Premix 100 mls @ 33.333 mls/hr IV ONETIME ONE Stop: 02/13/21 14:35 Last Admin: 02/13/21 12:18 Dose: 33.333 mls/hr Documented by: Lorazepam (Lorazepam 2 Mg/Ml Sdv) 0 mg IVPUSH Q4H PRN; Protocol PRN Reason: Withdrawal Symptoms Last Admin: 02/13/21 10:37 Dose: 1 mg Documented by: Morphine Sulfate (Morphine 2 Mg/Ml Syringe) 2 mg IVPUSH Q3H PRN PRN Reason: Pain Last Admin: 02/11/21 08:08 Dose: 2 mg Documented by: Ondansetron HCl (Ondansetron 4 Mg/2 Ml Sdv) 4 mg IVPUSH Q4H PRN PRN Reason: Nausea/Vomiting Last Admin: 02/11/21 08:09 Dose: 4 mg Documented by: Thiamine HCl (Thiamine 200 Mg/2 Ml Mdv) 250 mg IV DAILY [facility] Discontinued Medications Pantoprazole Sodium 80 mg/ (Sodium Chloride) 100 mls @ 10 mls/hr IV .Continuous [facility] Last Admin: 02/11/21 00:05 Dose: 10 mls/hr Documented by: Sodium Chloride (Normal Saline) 1,000 mls @ 999 mls/hr IV STAT ONE Stop: 02/10/21 23:45 Last Admin: 02/10/21 23:28 Dose: 999 mls/hr Documented by: Sodium Chloride (Normal Saline) 1,000 mls @ 999 mls/hr IV ASDIRECTED [facility] Dextrose/Sodium Chloride (Dextrose 5%-Normal Saline) 1,000 mls @ 999 mls/hr IV ASDIRECTED [facility] Last Admin: 02/11/21 00:19 Dose: 999 mls/hr Documented by: Pantoprazole Sodium 40 mg/ (Sodium Chloride) 10 mls @ 300 mls/hr IV Q24H [facility] Potassium Chloride 40 meq/ (Premix) 100 mls @ 25 mls/hr IV ONETIME ONE Stop: 02/12/21 11:55 Last Admin: 02/12/21 09:04 Dose: 25 mls/hr Documented by: Iopamidol (Iopamidol 755 Mg/Ml 100 Ml Bottle) 100 ml IVPUSH ONETIME ONE Stop: 02/11/21 00:44 Last Admin: 02/11/21 07:46 Dose: Not Given Documented by: Morphine Sulfate (Morphine 4 Mg/Ml Syringe) 4 mg IVPUSH ONETIME ONE Stop: 02/11/21 00:30 Last Admin: 02/11/21 00:33 Dose: 4 mg Documented by: Morphine Sulfate (Morphine 4 Mg/Ml Syringe) Confirm Administered Dose 4 mg .ROUTE .STK-MED ONE Stop: 02/11/21 00:30 Last Admin: 02/11/21 00:35 Dose: Not Given Documented by: Ondansetron HCl (Ondansetron 4 Mg/2 Ml Sdv) 4 mg IVPUSH ONETIME ONE Stop: 02/10/21 22:46 Last Admin: 02/10/21 23:28 Dose: 4 mg Documented by: Ondansetron HCl (Ondansetron 4 Mg/2 Ml Sdv) 4 mg IVPUSH ONETIME ONE Stop: 02/11/21 00:34 Last Admin: 02/11/21 00:36 Dose: 4 mg Documented by: Ondansetron HCl (Ondansetron 4 Mg/2 Ml Sdv) Confirm Administered Dose 4 mg .ROUTE .STK-MED ONE Stop: 02/11/21 00:33 Last Admin: 02/11/21 00:43 Dose: Not Given Documented by: Thiamine HCl (Thiamine 200 Mg/2 Ml Mdv) 100 mg IV DAILY [facility] Last Admin: 02/13/21 08:56 Dose: 100 mg Documented by: - Exam General: Lethargic HEENT: Other (Dry mucous membranes) Neck: No: Trachea Midline Lungs: Clear to Auscultation, Normal Respiratory Effort, Decreased Breath Sounds Cardiovascular: Regular Rate, Regular Rhythm GI/Abdominal Exam: Soft, No Organomegaly, Tender Extremities: Other (Dryness of both lower extremities) - Patient Data Lab Results Last 24 hrs: Laboratory Results - last 24 hr 02/13/21 02/13/21 02/13/21 Range/Units 05:30 05:45 10:51 WBC 6.44 (4.0-11.0) K/uL RBC 4.47 L (4.50-5.90) M/uL Hgb 14.9 (13.0-17.0) g/dL Hct 41.4 (38.0-50.0) % MCV 92.6 (80.0-98.0) fL MCH 33.3 H (27.0-32.0) pg MCHC 36.0 (31.0-37.0) g/dL RDW Std Deviation 51.1 (28.0-62.0) fl RDW Coeff of Stephane 16 H (11.0-15.0) % Plt Count 41 L (150-400) K/uL Neut % (Auto) 61.4 (48.0-80.0) % Lymph % (Auto) 28.0 (16.0-40.0) % [place] % (Auto) 10.1 (0.0-15.0) % Eos % (Auto) 0.3 (0.0-7.0) % Baso % (Auto) 0.2 (0.0-1.5) % Neut # (Auto) 4.0 (1.4-5.7) K/uL Lymph # (Auto) 1.8 (0.6-2.4) K/uL [place] # (Auto) 0.7 (0.0-0.8) K/uL Eos # (Auto) 0.0 (0.0-0.7) K/uL Baso # (Auto) 0.0 (0.0-0.1) K/uL Sodium 134 L (136-148) mmol/L Potassium 5.1 (3.5-5.1) mmol/L Chloride 92 L (98-107) mmol/L Carbon Dioxide 27.7 (21.0-32.0) mmol/L BUN 5 L (7.0-18.0) mg/dL Creatinine 0.3 L (0.8-1.3) mg/dL Est Cr Clr Drug Dosing 203.84 mL/min Estimated GFR (MDRD) > 60.0 ml/min Glucose 108 H (74-106) mg/dL Calcium 8.7 (8.5-10.1) mg/dL Magnesium 0.9 L (1.8-2.4) mg/dL Total Bilirubin 3.8 H (0.2-1.0) mg/dL AST 40 H (15-37) IU/L ALT 19 (14-63) IU/L Alkaline Phosphatase 98 (46-116) U/L Total Protein 7.4 (6.4-8.2) g/dL Albumin 3.2 L (3.4-5.0) g/dL Globulin 4.2 H (2.6-4.0) g/dL Albumin/Globulin Ratio 0.8 L (0.9-1.6) Lipase 99 (73-393) U/L Vitamin B12 (193-986) pg/mL 02/13/21 Range/Units 10:51 WBC (4.0-11.0) K/uL RBC (4.50-5.90) M/uL Hgb (13.0-17.0) g/dL Hct (38.0-50.0) % MCV (80.0-98.0) fL MCH (27.0-32.0) pg MCHC (31.0-37.0) g/dL RDW Std Deviation (28.0-62.0) fl RDW Coeff of Stephane (11.0-15.0) % Plt Count (150-400) K/uL Neut % (Auto) (48.0-80.0) % Lymph % (Auto) (16.0-40.0) % [place] % (Auto) (0.0-15.0) % Eos % (Auto) (0.0-7.0) % Baso % (Auto) (0.0-1.5) % Neut # (Auto) (1.4-5.7) K/uL Lymph # (Auto) (0.6-2.4) K/uL [place] # (Auto) (0.0-0.8) K/uL Eos # (Auto) (0.0-0.7) K/uL Baso # (Auto) (0.0-0.1) K/uL Sodium (136-148) mmol/L Potassium (3.5-5.1) mmol/L Chloride (98-107) mmol/L Carbon Dioxide (21.0-32.0) mmol/L BUN (7.0-18.0) mg/dL Creatinine (0.8-1.3) mg/dL Est Cr Clr Drug Dosing mL/min Estimated GFR (MDRD) ml/min Glucose (74-106) mg/dL Calcium (8.5-10.1) mg/dL Magnesium (1.8-2.4) mg/dL Total Bilirubin (0.2-1.0) mg/dL AST (15-37) IU/L ALT (14-63) IU/L Alkaline Phosphatase (46-116) U/L Total Protein (6.4-8.2) g/dL Albumin (3.4-5.0) g/dL Globulin (2.6-4.0) g/dL Albumin/Globulin Ratio (0.9-1.6) Lipase (73-393) U/L Vitamin B12 828 (193-986) pg/mL Result Diagrams: 02/13/21 05:45 02/13/21 05:30 Sepsis Event Note - Evaluation Sepsis Screening Result: No Definite Risk - Focused Exam Vital Signs: Vital Signs Temp Pulse Resp BP Pulse Ox 02/13/21 09:17 97.7 F 105 H 14 136/94 H 99 02/13/21 04:00 98 F 107 H 20 149/102 H 100 - Problem List & Annotations (1) Esophagitis SNOMED Code(s): 03760842 Code(s): K20.90 - ESOPHAGITIS, UNSPECIFIED WITHOUT BLEEDING Status: Acute Current Visit: Yes (2) Pancreatitis SNOMED Code(s): 38260046 Code(s): K85.90 - ACUTE PANCREATITIS WITHOUT NECROSIS OR INFECTION, UNSP Status: Acute Current Visit: Yes Qualifiers: (3) Abdominal pain SNOMED Code(s): 97940290 Code(s): R10.9 - UNSPECIFIED ABDOMINAL PAIN Status: Acute Current Visit: No (4) Alcohol abuse with physiological dependence SNOMED Code(s): 02465156, 84057967 Code(s): F10.20 - ALCOHOL DEPENDENCE, UNCOMPLICATED Status: Acute Current Visit: No (5) Chest pain SNOMED Code(s): 99722418 Code(s): R07.9 - CHEST PAIN, UNSPECIFIED Status: Acute Current Visit: No - Problem List Review Problem List Initiated/Reviewed/Updated: Yes - My Orders Last 24 Hours: My Active Orders 02/13/21 10:51 FOLIC ACID [CHEM] Routine 02/13/21 11:36 Magnesium Sulfate/Water [Magnesium Sulfate in Water 4 GM/100 ML] 4 gm Premix Bag 1 bag IV ONETIME 02/14/21 05:11 CBC WITH AUTO DIFF [HEME] AM CMP [COMPREHENSIVE METABOLIC PN,CMP] [CHEM] AM MAGNESIUM [CHEM] AM 02/15/21 05:11 CBC WITH AUTO DIFF [HEME] AM CMP [COMPREHENSIVE METABOLIC PN,CMP] [CHEM] AM 02/16/21 05:11 CBC WITH AUTO DIFF [HEME] AM CMP [COMPREHENSIVE METABOLIC PN,CMP] [CHEM] AM - Plan Plan:: 1. Pancreatitis -The patient is currently on a clear liquid diet, we will assess later on if he was able to tolerate it after eating -For pain, the patient is on morphine 2 mg per IV route as needed -For nausea and vomiting, the patient is on Zofran 4 mg per IV route every 4 hours -Continue LR 200 mL/h, if the patient tolerates his clear liquid diet we can decrease this rate -The patient is on folic acid 1 mg subcutaneously, will recheck folic acid levels in the morning -The patient thiamine dosage has been increased from 100 mg to 250 mg once a day -Daily CBC/CMP 2. Alcohol use disorder with withdrawal symptoms -The patient is on Ativan 1 mg per IV route every 4 hours as needed, CIWA protocol -Patient may have possible Wernicke's due to difficulty ambulating and tremors, physical therapy will come assess the patient -We will continue to monitor agitation/seizure risk and treat the patient accordingly 3. Esophagitis -Continue pantoprazole 40 mg IV every 24 hours 4. Hypomagnesemia -The patient was given a 4 g IV loading dose of magnesium, will recheck levels in the morning
[2021-02-13] MEDS: Pantoprazole 40 MG in Sodium Chloride 0.9% 10 ML IV SCH (16:23)
[2021-02-14 07:40] LABS: BLOOD UREA NITROGEN,BUN 3 mg/dL (7.0-18.0); CARBON DIOXIDE,CO2 27.6 mmol/L (21.0-32.0); CHLORIDE,CL 91 mmol/L (98-107); GLUCOSE RANDOM 135 mg/dL (74-106); POTASSIUM,K 2.6 mmol/L (3.5-5.1); SODIUM,NA 131 mmol/L (136-148)
[2021-02-14] MEDS ORDERED: Potassium Chloride 20 MEQ Tab.ER PO ONE (08:27)
[2021-02-14] MEDS ORDERED: Potassium Chloride Riders 40 MEQ in Premix Bag 1 BAG IV ONE ×2 (08:28→11:30)
[2021-02-14] MEDS ORDERED: Magnesium Sulfate/Water 4 GM in Premix Bag 1 BAG IV ONE (08:30)
[2021-02-14] MEDS: Lactated Ringers 1,000 ML IV SCH (08:37)
[2021-02-14] MEDS: Folic Acid 50 MG/10 ML MDV SUBCUT SCH (08:54)
[2021-02-14] MEDS ORDERED: Thiamine 200 MG/2 ML MDV IV SCH (09:00)
[2021-02-14] MEDS ORDERED: Magnesium Oxide 400 MG Tab PO SCH (12:00)
--- NOTE | 2021-02-14 16:43 | PCM.SN.2 ---
- Free Text/Narrative Note: The patient is a 65-year-old male [facility], on day 4 of service, with a significant past medical history of alcohol use disorder with withdrawal symptoms and tobacco use, who was admitted to the hospital for pancreatitis and alcohol withdrawal. The patient addressed concerns for wanting to leave the hospital and threatened to leave AMA without taking into full account that he required additional treatments besides those for his pancreatitis and alcohol withdrawal. This morning he was found to be hypokalemic and hypomagnesemic; therapy was to be initiated with 40 mEq of oral potassium chloride and 40 mEq of IV potassium as well as with a 4 g IV loading dose of magnesium. The patient still refused these therapies, and it was explained to him by Dr. Keita, that leaving the hospital may aggravate his symptoms and be of further detriment to his health. The drawbacks of leaving the hospital early were outlined to the patient clearly, he understood the complications that could be posed, however he still chose to leave AMA. Time Documentation
--- NOTE | 2021-02-15 10:13 | PCM.DCSUM1 ---
Discharge Summary - Hospital Course Free Text/Narrative:: The patient is a 65-year-old male from [facility], on day 4 of service, with a significant past medical history of alcohol use disorder with withdrawal symptoms and tobacco use, who was admitted to the hospital for pancreatitis and alcohol withdrawal. The patient addressed concerns for wanting to leave the hospital and threatened to leave AMA without taking into full account that he required additional treatments besides those for his pancreatitis and alcohol withdrawal. This morning he was found to be hypokalemic and hypomagnesemic; therapy was to be initiated with 40 mEq of oral potassium chloride and 40 mEq of IV potassium as well as with a 4 g IV loading dose of magnesium. The patient still refused these therapies, and it was explained to him by Dr. Keita, that leaving the hospital may aggravate his symptoms and be of further detriment to his health. The drawbacks of leaving the hospital early were outlined to the patient clearly, he understood the complications that could be posed, however he still chose to leave AMA. - Discharge Data Discharge Date: 02/14/21 Discharge Disposition: Against Medical Advice 07 Condition: Good - Referral to Home Health Primary Care Physician: PCP None - Discharge Diagnosis/Problem(s) (1) Esophagitis SNOMED Code(s): 48724663 ICD Code: K20.90 - ESOPHAGITIS, UNSPECIFIED WITHOUT BLEEDING Status: Acute (2) Pancreatitis SNOMED Code(s): 39167832 ICD Code: K85.90 - ACUTE PANCREATITIS WITHOUT NECROSIS OR INFECTION, UNSP Status: Acute Qualifiers: (3) Abdominal pain SNOMED Code(s): 13940813 ICD Code: R10.9 - UNSPECIFIED ABDOMINAL PAIN Status: Acute (4) Alcohol abuse with physiological dependence SNOMED Code(s): 36333278, 68448410 ICD Code: F10.20 - ALCOHOL DEPENDENCE, UNCOMPLICATED Status: Acute (5) Chest pain SNOMED Code(s): 36992325 ICD Code: R07.9 - CHEST PAIN, UNSPECIFIED Status: Acute - Patient Summary/Data Consults: Consultations 02/13/21 10:05 Consult to Physical Therapy [PT Evaluation and Treatment] [CONS] Routine - Discharge Plan Home Medications: Home Meds Omeprazole Magnesium [Prilosec Otc] 20 mg PO DAILY #20 tablet.dr 12/29/20 [Rx] Potassium Chloride 20 meq PO DAILY #30 tab.er.prt 01/22/21 [Rx] Patient Handouts: Acute Pancreatitis, [id number] Referrals: Crow Russo MD [Physician] - 02/20/21 2:00 pm - Discharge Summary/Plan Comment DC Time >30 min.: Yes Total # of Minutes for Discharge Time: 35 minutes - Patient Data Vitals - Most Recent: Last Vital Signs Temp 97.5 F 02/14/21 08:00 Pulse 114 H 02/14/21 08:00 Resp 18 02/14/21 08:00 BP 134/89 02/14/21 08:00 Pulse Ox 97 02/14/21 08:00 Weight - Most Recent: 131 lb 2.801 oz Med Orders - Current: Current Medications Discontinued Medications Folic Acid (Folic Acid 50 Mg/10 Ml Mdv) 1 mg SUBCUT DAILY MARCEL Last Admin: 02/14/21 08:54 Dose: 1 mg Documented by: Pantoprazole Sodium 80 mg/ (Sodium Chloride) 100 mls @ 10 mls/hr IV .Continuous MARCEL Last Admin: 02/11/21 00:05 Dose: 10 mls/hr Documented by: Sodium Chloride (Normal Saline) 1,000 mls @ 999 mls/hr IV STAT ONE Stop: 02/10/21 23:45 Last Admin: 02/10/21 23:28 Dose: 999 mls/hr Documented by: Sodium Chloride (Normal Saline) 1,000 mls @ 999 mls/hr IV ASDIRECTED MARCEL Dextrose/Sodium Chloride (Dextrose 5%-Normal Saline) 1,000 mls @ 999 mls/hr IV ASDIRECTED MARCEL Last Admin: 02/11/21 00:19 Dose: 999 mls/hr Documented by: Lactated Ringer's (Ringers, Lactated) 1,000 mls @ 200 mls/hr IV ASDIRECTED MARCEL Last Admin: 02/13/21 08:56 Dose: 200 mls/hr Documented by: Pantoprazole Sodium 40 mg/ (Sodium Chloride) 10 mls @ 300 mls/hr IV Q24H MARCEL Pantoprazole Sodium 40 mg/ (Sodium Chloride) 10 mls @ 300 mls/hr IV Q24H MARCEL Last Admin: 02/13/21 16:23 Dose: 300 mls/hr Documented by: Potassium Chloride 40 meq/ (Premix) 100 mls @ 25 mls/hr IV ONETIME ONE Stop: 02/12/21 11:55 Last Admin: 02/12/21 09:04 Dose: 25 mls/hr Documented by: Magnesium Sulfate 4 gm/ Premix 100 mls @ 33.333 mls/hr IV ONETIME ONE Stop: 02/13/21 14:35 Last Admin: 02/13/21 12:18 Dose: 33.333 mls/hr Documented by: Lactated Ringer's (Ringers, Lactated) 1,000 mls @ 125 mls/hr IV ASDIRECTED [facility] Last Admin: 02/14/21 08:37 Dose: 125 mls/hr Documented by: Magnesium Sulfate 4 gm/ Premix 100 mls @ 33.333 mls/hr IV ONETIME ONE Stop: 02/14/21 11:29 Last Admin: 02/14/21 08:47 Dose: 33.333 mls/hr Documented by: Potassium Chloride 40 meq/ (Premix) 100 mls @ 25 mls/hr IV ONETIME ONE Stop: 02/14/21 15:29 Last Admin: 02/14/21 12:04 Dose: 25 mls/hr Documented by: Iopamidol (Iopamidol 755 Mg/Ml 100 Ml Bottle) 100 ml IVPUSH ONETIME ONE Stop: 02/11/21 00:44 Last Admin: 02/11/21 07:46 Dose: Not Given Documented by: Lorazepam (Lorazepam 2 Mg/Ml Sdv) 0 mg IVPUSH Q4H PRN; Protocol PRN Reason: Withdrawal Symptoms Last Admin: 02/13/21 10:37 Dose: 1 mg Documented by: Magnesium Oxide (Magnesium Oxide 400 Mg Tab) 400 mg PO DAILY [facility] Last Admin: 02/14/21 12:10 Dose: 400 mg Documented by: Morphine Sulfate (Morphine 4 Mg/Ml Syringe) 4 mg IVPUSH ONETIME ONE Stop: 02/11/21 00:30 Last Admin: 02/11/21 00:33 Dose: 4 mg Documented by: Morphine Sulfate (Morphine 4 Mg/Ml Syringe) Confirm Administered Dose 4 mg .ROUTE .STK-MED ONE Stop: 02/11/21 00:30 Last Admin: 02/11/21 00:35 Dose: Not Given Documented by: Morphine Sulfate (Morphine 2 Mg/Ml Syringe) 2 mg IVPUSH Q3H PRN PRN Reason: Pain Last Admin: 02/11/21 08:08 Dose: 2 mg Documented by: Ondansetron HCl (Ondansetron 4 Mg/2 Ml Sdv) 4 mg IVPUSH ONETIME ONE Stop: 02/10/21 22:46 Last Admin: 02/10/21 23:28 Dose: 4 mg Documented by: Ondansetron HCl (Ondansetron 4 Mg/2 Ml Sdv) 4 mg IVPUSH ONETIME ONE Stop: 02/11/21 00:34 Last Admin: 02/11/21 00:36 Dose: 4 mg Documented by: Ondansetron HCl (Ondansetron 4 Mg/2 Ml Sdv) Confirm Administered Dose 4 mg .ROUTE .STK-MED ONE Stop: 02/11/21 00:33 Last Admin: 02/11/21 00:43 Dose: Not Given Documented by: Ondansetron HCl (Ondansetron 4 Mg/2 Ml Sdv) 4 mg IVPUSH Q4H PRN PRN Reason: Nausea/Vomiting Last Admin: 02/11/21 08:09 Dose: 4 mg Documented by: Potassium Chloride (Potassium Chloride 20 Meq Tab.Er) 40 meq PO ONETIME ONE Stop: 02/14/21 08:28 Last Admin: 02/14/21 08:47 Dose: 40 meq Documented by: Thiamine HCl (Thiamine 200 Mg/2 Ml Mdv) 100 mg IV DAILY [facility] Last Admin: 02/13/21 08:56 Dose: 100 mg Documented by: Thiamine HCl (Thiamine 200 Mg/2 Ml Mdv) 250 mg IV DAILY [facility] Last Admin: 02/14/21 08:46 Dose: 250 mg Documented by:
== END 2021-02-14 13:43 | disposition left against medical advice (07) | DRG 391 ==
LOC: MW.ED 22:29 → MW.MS 02-11 04:37
PROVIDERS: ADMIT Internal Medicine; ATTEND Internal Medicine
DX: R07.9 Chest pain, unspecified (principal); E87.2 Acidosis; K20.90 Esophagitis, unspecified without bleeding; K85.90 Acute pancreatitis without necrosis or infection, unspecified; Z86.16 Personal history of COVID-19; F10.239 Alcohol dependence with withdrawal, unspecified; Z72.89 Other problems related to lifestyle; Z79.899 Other long term (current) drug therapy; E87.6 Hypokalemia; E83.42 Hypomagnesemia; Z20.822 Contact with and (suspected) exposure to COVID-19; E78.00 Pure hypercholesterolemia, unspecified; I10 Essential (primary) hypertension; F17.210 Nicotine dependence, cigarettes, uncomplicated
CPT/HCPCS: 36415; 71045; 71260; 74177; 80053; 80307; 82140; 83690; 84484; 85025; 85610; 85730; 86850; 86900; 86901; 93005 ×2; 96365; 96366; 96375 ×2; 96376; 99285; C9113; J2270; J2405 ×2; J7030; J7042; J7120; U0002; 82607; 82746; 83735; 97161-GP; A9270-GY; J2060; J3411; J3475; J3480

== ENCOUNTER 2021-07-05 17:01 | Emergency (ER) | payer MEDICARE, MEDICAID ==
[2021-07-05] MEDS ORDERED: Pantoprazole 80 MG in Sodium Chloride 0.9% 10 ML IVPUSH ONE (17:15)
[2021-07-05] MEDS ORDERED: Sodium Chloride 0.9% 1,000 ML IV ONE (17:15)
[2021-07-05 19:09] LABS: BLOOD UREA NITROGEN,BUN 6 mg/dL (7.0-18.0); CARBON DIOXIDE,CO2 29.1 mmol/L (21.0-32.0); CHLORIDE,CL 101 mmol/L (98-107); GLUCOSE RANDOM 121 mg/dL (74-106); LIPASE 20 U/L (73-393); POTASSIUM,K 3.2 mmol/L (3.5-5.1); SODIUM,NA 143 mmol/L (136-148)
[2021-07-05] MEDS ORDERED: Iopamidol 755 MG/ML 500 ML Multipack Bottle IVPUSH ONE (19:19)
[2021-07-05] MEDS ORDERED: LORazepam 2 MG/ML SDV IVPUSH ONE (19:24)
== END 2021-07-05 21:45 | disposition home or self-care (01) ==
LOC: MW.ED 17:01
DX: K92.1 Melena (principal); F10.230 Alcohol dependence with withdrawal, uncomplicated; I10 Essential (primary) hypertension; R79.89 Other specified abnormal findings of blood chemistry; R74.8 Abnormal levels of other serum enzymes; E78.00 Pure hypercholesterolemia, unspecified; Z20.822 Contact with and (suspected) exposure to COVID-19; Y90.1 Blood alcohol level of 20-39 mg/100 ml
CPT/HCPCS: 36415; 74177; 80053; 80307; 83690; 83735; 85025; 85610; 86850; 86900; 86901; 93005; 96374; 96375; 99284; C9113; J2060; J7030; Q9967; U0002; 36410; 93010; 99285

== ENCOUNTER 2021-10-31 22:08 | Inpatient (IN) | payer MEDICARE, MEDICAID ==
[2021-11-01] MEDS ORDERED: Acetaminophen/Butalbital/Caffeine 325-50-40 MG Tab PO ONE (01:00)
[2021-11-01 01:07] LABS: BLOOD UREA NITROGEN,BUN 15 mg/dL (7.0-18.0); CARBON DIOXIDE,CO2 13.4 mmol/L (21.0-32.0); CHLORIDE,CL 98 mmol/L (98-107); GLUCOSE RANDOM 108 mg/dL (74-106); POTASSIUM,K 5.9 mmol/L (3.5-5.1); SODIUM,NA 138 mmol/L (136-148)
[2021-11-01 01:09] LABS: ESTIMATED GFR 47 mL/min (>60)
[2021-11-01] MEDS ORDERED: Lactated Ringers 1,000 ML IV ONE ×2 (02:32→07:48)
[2021-11-01] MEDS ORDERED: Insulin Regular, Human 100 Units/ML 10 ML Vial IVPUSH ONE (02:32)
[2021-11-01] MEDS ORDERED: Calcium Gluconate 10% 1 GM/10 ML SDV IVPUSH ONE (02:32)
[2021-11-01] MEDS ORDERED: 50% Dextrose in Water 50 ML Syringe IVPUSH PRN (02:32)
[2021-11-01] MEDS ORDERED: Glucagon,Human Recombinant 1 MG Vial IM PRN (02:32)
[2021-11-01] MEDS ORDERED: Sodium Polystyrene Sulfonate 15 GM/60 ML Susp 60 ML Bot PO ONE (02:33)
[2021-11-01] MEDS ORDERED: 50% Dextrose in Water 50 ML Syringe IVPUSH ONE (02:33)
[2021-11-01] MEDS ORDERED: Sodium Chloride 0.9% 1,000 ML IV ONE (04:44)
[2021-11-01] MEDS ORDERED: Sodium Chloride 0.9% 1,000 ML IV SCH (05:15)
[2021-11-01 05:44] LABS: CARBON DIOXIDE,CO2 19.2 mmol/L (21.0-32.0); POTASSIUM,K 5.5 mmol/L (3.5-5.1)
[2021-11-01] MEDS ORDERED: Ondansetron 4 MG/2 ML SDV IVPUSH PRN (10:37)
[2021-11-01] MEDS ORDERED: Sodium Chloride 0.9% 10 ML Syringe FLUSH PRN (10:37)
[2021-11-01] MEDS ORDERED: Sodium Chloride 0.9% 2.5 ML Syringe FLUSH PRN (10:37)
[2021-11-01] MEDS ORDERED: LORazepam 2 MG/ML SDV IVPUSH PRN (11:21)
[2021-11-01] MEDS: Lactated Ringers 1,000 ML IV SCH ×2 (11:21→19:29)
[2021-11-01] MEDS ORDERED: Thiamine 100 MG in Sodium Chloride 0.9% 100 ML IV SCH (11:30)
[2021-11-01] MEDS: Pantoprazole 40 MG in Sodium Chloride 0.9% 10 ML IVPUSH SCH (12:04)
[2021-11-01] MEDS: Thiamine 200 MG/2 ML MDV IV SCH (12:04)
[2021-11-01] MEDS: Folic Acid 50 MG/10 ML MDV IV SCH (12:14)
[2021-11-02] MEDS: Lactated Ringers 1,000 ML IV SCH (03:31)
[2021-11-02 06:43] LABS: CARBON DIOXIDE,CO2 25.7 mmol/L (21.0-32.0); POTASSIUM,K 3.2 mmol/L (3.5-5.1)
[2021-11-02] MEDS: Folic Acid 50 MG/10 ML MDV IV SCH (08:53)
[2021-11-02] MEDS: Thiamine 200 MG/2 ML MDV IV SCH (08:55)
[2021-11-02] MEDS: Pantoprazole 40 MG in Sodium Chloride 0.9% 10 ML IVPUSH SCH (11:47)
== END 2021-11-02 15:57 | disposition home or self-care (01) | DRG 683 ==
LOC: MW.ED 22:08 → MW.MS 11-01 06:56
PROVIDERS: ADMIT Student in an Organized Health Care Education/Training Program; ATTEND Student in an Organized Health Care Education/Training Program
DX: N17.9 Acute kidney failure, unspecified (principal); E87.2 Acidosis; E83.42 Hypomagnesemia; Z20.822 Contact with and (suspected) exposure to COVID-19; E78.5 Hyperlipidemia, unspecified; I10 Essential (primary) hypertension; F17.210 Nicotine dependence, cigarettes, uncomplicated; K70.10 Alcoholic hepatitis without ascites; E87.5 Hyperkalemia; F10.10 Alcohol abuse, uncomplicated; K21.9 Gastro-esophageal reflux disease without esophagitis; Z86.16 Personal history of COVID-19
CPT/HCPCS: 36415; 70450; 70450-26; 71045; 71045-26; 74176; 74176-26; 80053; 80307; 81001; 82009; 82550; 82803; 83605; 83690; 83735; 84484; 85025; 85610; 93005; 96361; 96374; 96375; 99285-25; A9270-GY; C9113; J0610; J1815-GY; J3411; J3490; J7120; U0002

== ENCOUNTER 2021-11-16 23:16 | Emergency (ER) | payer MEDICARE, MEDICAID ==
[2021-11-16] MEDS ORDERED: Sodium Chloride 0.9% 10 ML Syringe FLUSH PRN (23:37)
[2021-11-16] MEDS ORDERED: Sodium Chloride 0.9% 2.5 ML Syringe FLUSH PRN (23:37)
[2021-11-17] MEDS: Sodium Chloride 0.9% 1,000 ML IV ONE ×2 (00:22→01:04)
[2021-11-17] MEDS: Ondansetron 4 MG/2 ML SDV IVPUSH ONE ×2 (00:22→01:04)
== END 2021-11-17 00:59 | disposition left against medical advice (07) ==
LOC: MW.ED 23:16
DX: R10.13 Epigastric pain (principal); R07.9 Chest pain, unspecified; Z72.89 Other problems related to lifestyle; I10 Essential (primary) hypertension
CPT/HCPCS: 71045; 93005; 99284; J3490; 93010; J2405; J7030

== ENCOUNTER 2021-11-18 14:30 | Emergency (ER) | payer MEDICARE, MEDICAID ==
[2021-11-18] MEDS ORDERED: Famotidine 20 MG Tab PO ONE (14:39)
[2021-11-18] MEDS ORDERED: Ondansetron 4 MG Tab.DIS PO ONE (14:39)
[2021-11-18 15:43] LABS: CARBON DIOXIDE,CO2 21.9 mmol/L (21.0-32.0); POTASSIUM,K 5.1 mmol/L (3.5-5.1)
[2021-11-18] MEDS ORDERED: Omeprazole 20 MG Cap.CR PO ONE (16:47)
== END 2021-11-18 17:45 | disposition home or self-care (01) ==
LOC: MW.ED 14:30
DX: K29.70 Gastritis, unspecified, without bleeding (principal); I10 Essential (primary) hypertension; E78.00 Pure hypercholesterolemia, unspecified; Z79.899 Other long term (current) drug therapy
CPT/HCPCS: 36415; 80053; 83690; 83735; 85025; 99284; A9270; 99283

== ENCOUNTER 2022-01-01 23:06 | Emergency (ER) | payer MEDICARE, MEDICAID ==
[2022-01-01] MEDS ORDERED: Sodium Chloride 0.9% 1,000 ML IV ONE (23:08)
[2022-01-01] MEDS ORDERED: Ondansetron 4 MG/2 ML SDV IVPUSH ONE (23:08)
[2022-01-01] MEDS ORDERED: Sodium Chloride 0.9% 2.5 ML Syringe FLUSH PRN (23:08)
[2022-01-01] MEDS ORDERED: Sodium Chloride 0.9% 10 ML Syringe FLUSH PRN (23:08)
[2022-01-02 00:43] LABS: CARBON DIOXIDE,CO2 26.8 mmol/L (21.0-32.0); POTASSIUM,K 2.9 mmol/L (3.5-5.1)
[2022-01-02] MEDS ORDERED: Potassium Bicarbonate 25 MEQ Tab.EFF PO STA (00:54)
[2022-01-02] MEDS ORDERED: Potassium Chloride 10% 20 MEQ/15 ML Soln 30 ML UD Cup ONE (00:59)
[2022-01-02] MEDS ORDERED: Potassium Chloride 10% 20 MEQ/15 ML Soln 30 ML UD Cup PO ONE (00:59)
[2022-01-02] MEDS ORDERED: diphenhydrAMINE 50 MG/ML SDV IVPUSH STA (01:08)
== END 2022-01-02 01:10 | disposition home or self-care (01) ==
LOC: MW.ED 23:06
DX: F10.129 Alcohol abuse with intoxication, unspecified (principal); I10 Essential (primary) hypertension; F17.210 Nicotine dependence, cigarettes, uncomplicated; Z79.899 Other long term (current) drug therapy; Z86.16 Personal history of COVID-19; Z20.822 Contact with and (suspected) exposure to COVID-19
CPT/HCPCS: 36415; 71045; 80053; 80307; 83735; 84484; 85025; 93005; 96361; 96374; 99285; A9270; J2405; J7030; U0002

== ENCOUNTER 2022-01-07 02:30 | Emergency (ER) | payer MEDICARE, MEDICAID ==
[2022-01-07 03:34] LABS: CARBON DIOXIDE,CO2 24.5 mmol/L (21.0-32.0); POTASSIUM,K 3.3 mmol/L (3.5-5.1)
[2022-01-07] MEDS ORDERED: Sodium Chloride 0.9% 1,000 ML IV ONE (03:35)
[2022-01-07] MEDS ORDERED: Famotidine 20 MG/2 ML SDV IVPUSH ONE (03:35)
[2022-01-07] MEDS ORDERED: Sodium Chloride 0.9% 2.5 ML Syringe FLUSH PRN (03:35)
[2022-01-07] MEDS ORDERED: Sodium Chloride 0.9% 10 ML Syringe FLUSH PRN (03:35)
[2022-01-07] MEDS ORDERED: Ondansetron 4 MG/2 ML SDV IVPUSH ONE (03:35)
[2022-01-07] MEDS ORDERED: Pantoprazole 40 MG in Sodium Chloride 0.9% 10 ML IVPUSH ONE (03:37)
[2022-01-07] MEDS ORDERED: Alum Hydro/Mag Hydro/Simeth XS 15 ML, Lidocaine 2% 5 ML PO ONE ×2 (03:37)
[2022-01-07 03:47] LABS: LIPASE 112 U/L (73-393)
== END 2022-01-07 05:25 | disposition home or self-care (01) ==
LOC: MW.ED 02:30
DX: R11.2 Nausea with vomiting, unspecified (principal); I10 Essential (primary) hypertension; E78.00 Pure hypercholesterolemia, unspecified; Z79.899 Other long term (current) drug therapy; Z86.16 Personal history of COVID-19
CPT/HCPCS: 36415; 74022; 80053; 80307; 83690; 85025; 85610; 85730; 96361; 96374; 96375; 99285; A9270; C9113; J2405; J3490; J7030; 93010; 99284

== ENCOUNTER 2022-05-29 14:42 | Emergency (ER) | payer MEDICARE, MEDICAID ==
[2022-05-29] MEDS ORDERED: Sodium Chloride 0.9% 2.5 ML Syringe FLUSH PRN (14:55)
[2022-05-29] MEDS ORDERED: Sodium Chloride 0.9% 1,000 ML IV ONE (14:55)
[2022-05-29] MEDS ORDERED: LORazepam 2 MG/ML SDV IVPUSH ONE (14:55)
[2022-05-29] MEDS ORDERED: Sodium Chloride 0.9% 10 ML Syringe FLUSH PRN (14:55)
[2022-05-29 16:24] LABS: CARBON DIOXIDE,CO2 24.9 mmol/L (21.0-32.0); POTASSIUM,K 3.6 mmol/L (3.5-5.1)
== END 2022-05-29 17:14 | disposition home or self-care (01) ==
LOC: MW.ED 14:42
DX: E86.0 Dehydration (principal); F10.10 Alcohol abuse, uncomplicated; I10 Essential (primary) hypertension; E78.00 Pure hypercholesterolemia, unspecified; F17.210 Nicotine dependence, cigarettes, uncomplicated; Z86.16 Personal history of COVID-19; Z79.899 Other long term (current) drug therapy; Y90.0 Blood alcohol level of less than 20 mg/100 ml
CPT/HCPCS: 36415; 70450; 71045; 80053; 80307; 83690; 83735; 84484; 85025; 93005; 96361; 96374; 99285; J2060; J3490; J7030; 93010; 99284

== ENCOUNTER 2022-07-29 22:18 | Emergency (ER) | payer MEDICARE, MEDICAID ==
[2022-07-29] MEDS ORDERED: Sodium Chloride 0.9% 2.5 ML Syringe FLUSH PRN (22:20)
[2022-07-29] MEDS ORDERED: Sodium Chloride 0.9% 10 ML Syringe FLUSH PRN (22:20)
[2022-07-29] MEDS ORDERED: Ondansetron 4 MG/2 ML SDV IVPUSH ONE (22:21)
[2022-07-29] MEDS ORDERED: Morphine 4 MG/ML Syringe IVPUSH ONE (22:26)
[2022-07-29] MEDS ORDERED: Etomidate 2 MG/ML 20 ML SDV IVPUSH ONE (23:26)
[2022-07-29] MEDS ORDERED: Succinylcholine 200 MG/10 ML MDV IVPUSH STA (23:26)
[2022-07-29] MEDS ORDERED: propofoL 100 ML ONE (23:30)
[2022-07-29] MEDS ORDERED: Lactated Ringers 1,000 ML IV ONE ×2 (23:33→23:55)
[2022-07-29 23:34] LABS: CORONAVIRUS COVID-19 NAA NEGATIVE (NEGATIVE); INFLUENZA A NAA NEGATIVE (NEGATIVE); INFLUENZA B NAA NEGATIVE (NEGATIVE)
[2022-07-30] MEDS ORDERED: Lactated Ringers 1,000 ML IV ONE ×2 (00:07→00:10)
[2022-07-30] MEDS ORDERED: Propofol 200 MG/20 ML SDV IVPUSH ONE ×3 (00:08→00:43)
[2022-07-30] MEDS ORDERED: propofoL 100 ML IV SCH (00:08)
[2022-07-30] MEDS ORDERED: Propofol 200 MG/20 ML SDV ONE (00:08)
[2022-07-30 00:37] LABS: POTASSIUM,K 5.3 mmol/L (3.5-5.1)
[2022-07-30] MEDS ORDERED: Iopamidol 755 MG/ML 500 ML Multipack Bottle IVPUSH STA (00:52)
[2022-07-30 00:53] LABS: CARBON DIOXIDE,CO2 3.6 mmol/L (21.0-32.0)
[2022-07-30] MEDS ORDERED: Cefepime 2 GM in Sodium Chloride 0.9% 50 ML IV ONE (01:10)
[2022-07-30] MEDS ORDERED: VANCOmycin 1.25 GM/250 ML 250 ML IV ONE (01:30)
[2022-07-30] MEDS ORDERED: fentaNYL/Normal Saline 250 ML ONE (01:37)
[2022-07-30] MEDS ORDERED: fentaNYL 100 MCG/2 ML SDV ONE ×2 (01:37→03:07)
[2022-07-30] MEDS ORDERED: fentaNYL/Normal Saline 2,500 MCG in Premix Bag 1 BAG IV PRN (01:37)
[2022-07-30] MEDS ORDERED: Sodium Chloride 0.9% 250 ML ONE (02:11)
[2022-07-30] MEDS ORDERED: Vancomycin 1.25 GM SDV ONE (02:12)
[2022-07-30] MEDS ORDERED: fentaNYL 100 MCG/2 ML SDV IVPUSH PRN (02:58)
[2022-07-30] MEDS ORDERED: fentaNYL 100 MCG/2 ML SDV IVPUSH ONE (03:10)
[2022-07-30] MEDS ORDERED: 50% Dextrose in Water 50 ML Syringe ONE (03:26)
[2022-07-30] MEDS ORDERED: 50% Dextrose in Water 50 ML Syringe IVPUSH ONE (03:26)
== END 2022-07-30 03:53 ==
LOC: MW.ED 22:18
DX: K92.2 Gastrointestinal hemorrhage, unspecified (principal); E16.2 Hypoglycemia, unspecified; I10 Essential (primary) hypertension; Z86.16 Personal history of COVID-19; Z20.822 Contact with and (suspected) exposure to COVID-19
CPT/HCPCS: 0240U; 31500; 36415; 36556; 70450; 71045; 74177; 80053; 80307; 82947; 83605; 83690; 83735; 84484; 85025; 87040; 87077; 87154; 87186; 93005; 96365; 96375; 99285; J0330; J0692; J2704; J3010; J3370; J3490; J7050; Q9967; 93010; 99291

== ENCOUNTER 2022-11-01 21:02 | Emergency (ER) | payer MEDICARE, MEDICAID ==
[2022-11-01] MEDS ORDERED: Sodium Chloride 0.9% 1,000 ML IV ONE (21:06)
[2022-11-01 22:32] LABS: BASOPHILS PERCENT AUTO 0.2 % (0.0-1.5); HEMATOCRIT 30.7 % (38.0-50.0); HEMOGLOBIN 10.6 g/dL (13.0-17.0); LYMPHOCYTES ABSOLUTE AUTO 1.5 K/uL (0.6-2.4); LYMPHOCYTES PERCENT AUTO 18.5 % (16.0-40.0); MEAN CORPUSCULAR HEMOGLOBIN 30.3 pg (27.0-32.0); MEAN CORPUSCULAR HGB CONC 34.5 g/dL (31.0-37.0); MEAN CORPUSCULAR VOLUME 87.7 fL (80.0-98.0); MONOCYTES ABSOLUTE AUTO 0.4 K/uL (0.0-0.8); MONOCYTES PERCENT AUTO 5.3 % (0.0-15.0); NEUTROPHILS ABSOLUTE AUTO 6.1 K/uL (1.4-5.7); NRBC ABSOLUTE 0 K/uL; WHITE BLOOD CELL COUNT,WBC 8.06 K/uL (4.0-11.0)
[2022-11-01 22:57] LABS: A/G RATIO 0.9 (0.9-1.6); ALBUMIN 3.6 g/dL (3.4-5.0); BILIRUBIN TOTAL 1.1 mg/dL (0.2-1.0); CALCIUM 8.9 mg/dL (8.5-10.1); CARBON DIOXIDE,CO2 19.8 mmol/L (21.0-32.0); CREATININE 1.4 mg/dL (0.8-1.3); EST CRCL DRUG DOSING (CG) 40.71 mL/min; MAGNESIUM 1.5 mg/dL (1.8-2.4); POTASSIUM,K 4.3 mmol/L (3.5-5.1); PROTEIN TOTAL,TP 7.6 g/dL (6.4-8.2)
[2022-11-01 23:00] LABS: LACTIC ACID 7.9 mmol/L (0.4-2.0)
[2022-11-01 23:05] LABS: PLATELET COUNT,PLT 84
[2022-11-01] MEDS ORDERED: Magnesium Sulfate/Water 2 GM in Premix Bag 1 BAG IV ONE (23:19)
[2022-11-01] MEDS ORDERED: Folic Acid 1 MG Tab PO ONE (23:19)
[2022-11-01] MEDS ORDERED: Thiamine 200 MG/2 ML MDV IVPUSH ONE (23:20)
[2022-11-01] MEDS ORDERED: Dextrose 5%-Lact Ringers w/KCl 1,000 ML IV SCH (23:30)
== END 2022-11-02 01:52 | disposition home or self-care (01) ==
LOC: MW.ED 21:02
DX: F10.10 Alcohol abuse, uncomplicated (principal); E87.20 Acidosis, unspecified; E78.00 Pure hypercholesterolemia, unspecified; I10 Essential (primary) hypertension; Z79.899 Other long term (current) drug therapy; Z79.82 Long term (current) use of aspirin; Z86.16 Personal history of COVID-19
CPT/HCPCS: 36415; 71045; 80053; 83605; 83735; 84484; 85025; 93005; 96361; 96365; 96375; 99285; A9270; J3411; J3475; J7030; 99284

== ENCOUNTER 2023-01-07 12:32 | Inpatient (IN) | payer MEDICARE, MEDICAID ==
[2023-01-07] MEDS ORDERED: Sodium Chloride 0.9% 2.5 ML Syringe FLUSH PRN (13:27)
[2023-01-07] MEDS ORDERED: Thiamine 200 MG/2 ML MDV IVPUSH ONE (13:27)
[2023-01-07] MEDS ORDERED: Sodium Chloride 0.9% 10 ML Syringe FLUSH PRN (13:27)
[2023-01-07] MEDS ORDERED: LORazepam 2 MG/ML SDV IVPUSH ONE (13:27)
[2023-01-07] MEDS ORDERED: MVI, Adult with Vitamin K 10 ML, Thiamine 200 MG in Dextrose 5%-Lactated Ringers 1,000 ML IV SCH ×3 (13:30)
[2023-01-07 13:37] LABS: BASOPHILS PERCENT AUTO 0.7 % (0.0-1.5); EOSINOPHILS PERCENT AUTO 0.5 % (0.0-7.0); HEMATOCRIT 42.8 % (38.0-50.0); HEMOGLOBIN 15.1 g/dL (13.0-17.0); LYMPHOCYTES ABSOLUTE AUTO 1.6 K/uL (0.6-2.4); LYMPHOCYTES PERCENT AUTO 39.5 % (16.0-40.0); MEAN CORPUSCULAR HEMOGLOBIN 32.3 pg (27.0-32.0); MEAN CORPUSCULAR HGB CONC 35.3 g/dL (31.0-37.0); MEAN CORPUSCULAR VOLUME 91.5 fL (80.0-98.0); MONOCYTES ABSOLUTE AUTO 0.4 K/uL (0.0-0.8); MONOCYTES PERCENT AUTO 9.2 % (0.0-15.0); NEUTROPHILS ABSOLUTE AUTO 2.1 K/uL (1.4-5.7); NEUTROPHILS PERCENT AUTO 50.1 % (48.0-80.0); NRBC ABSOLUTE 0 K/uL; PLATELET COUNT,PLT 83 K/uL (150-400); RED BLOOD CELL COUNT 4.68 M/uL (4.50-5.90); WHITE BLOOD CELL COUNT,WBC 4.13 K/uL (4.0-11.0)
[2023-01-07 14:18] LABS: INR 1.12 (0.86-1.11)
[2023-01-07] MEDS ORDERED: droPERidol 5 MG/2 ML SDV IVPUSH ONE (15:09)
[2023-01-07 15:14] LABS: A/G RATIO 0.9 (0.9-1.6); ALBUMIN 3.6 g/dL (3.4-5.0); BILIRUBIN TOTAL 2.8 mg/dL (0.2-1.0); CALCIUM 8.9 mg/dL (8.5-10.1); CARBON DIOXIDE,CO2 21.3 mmol/L (21.0-32.0); CREATININE 1.2 mg/dL (0.8-1.3); EST CRCL DRUG DOSING (CG) 52.92 mL/min; MAGNESIUM 1.4 mg/dL (1.8-2.4); PHOSPHORUS 3.1 mg/dL (2.6-4.7); POTASSIUM,K 2.9 mmol/L (3.5-5.1); PROTEIN TOTAL,TP 7.5 g/dL (6.4-8.2)
[2023-01-07] MEDS ORDERED: Magnesium Sulfate/Water 2 GM in Premix Bag 1 BAG IV ONE (15:32)
[2023-01-07] MEDS ORDERED: Potassium Chloride 20 MEQ in Premix Bag 1 BAG IV ONE (15:33)
[2023-01-07] MEDS ORDERED: Sodium Chloride 0.9% 250 ML IV ONE (16:00)
[2023-01-07 17:23] LABS: APPEARANCE CSF CLEAR; COLOR,CSF COLORLESS; WBC,CSF < 1 /uL (0-5)
[2023-01-07 17:24] LABS: RBC,CSF 0 /uL (0-0)
[2023-01-07] MEDS ORDERED: LORazepam 2 MG/ML SDV IVPUSH PRN (19:11)
[2023-01-07] MEDS ORDERED: Enoxaparin 40 MG/0.4 ML Syringe SUBCUT SCH (19:15)
[2023-01-07] MEDS: Lactated Ringers 1,000 ML IV SCH (19:49)
[2023-01-07] MEDS ORDERED: Thiamine 100 MG Tab PO SCH (21:00)
[2023-01-08] MEDS: Lactated Ringers 1,000 ML IV SCH ×3 (03:31→21:20)
[2023-01-08 05:52] LABS: BASOPHILS PERCENT AUTO 0.2 % (0.0-1.5); EOSINOPHILS PERCENT AUTO 0.7 % (0.0-7.0); HEMATOCRIT 42.7 % (38.0-50.0); HEMOGLOBIN 15.1 g/dL (13.0-17.0); LYMPHOCYTES ABSOLUTE AUTO 1.6 K/uL (0.6-2.4); LYMPHOCYTES PERCENT AUTO 38.1 % (16.0-40.0); MEAN CORPUSCULAR HEMOGLOBIN 32.1 pg (27.0-32.0); MEAN CORPUSCULAR HGB CONC 35.4 g/dL (31.0-37.0); MEAN CORPUSCULAR VOLUME 90.9 fL (80.0-98.0); MONOCYTES ABSOLUTE AUTO 0.4 K/uL (0.0-0.8); NEUTROPHILS ABSOLUTE AUTO 2.2 K/uL (1.4-5.7); NRBC ABSOLUTE 0 K/uL; WHITE BLOOD CELL COUNT,WBC 4.31 K/uL (4.0-11.0)
[2023-01-08 06:21] LABS: PLATELET COUNT,PLT 61 K/uL (150-400)
[2023-01-08 06:29] LABS: A/G RATIO 0.9 (0.9-1.6); ALANINE AMINOTRANSFERASE,ALT 25 IU/L (14-63); ALKALINE PHOSPHATASE 77 U/L (46-116); ASPARTATE AMNIOTRANSFERASE,AST 158 IU/L (15-37); BILIRUBIN TOTAL 2.7 mg/dL (0.2-1.0); BLOOD UREA NITROGEN,BUN 13 mg/dL (7.0-18.0); CALCIUM 8.8 mg/dL (8.5-10.1); CARBON DIOXIDE,CO2 24.1 mmol/L (21.0-32.0); CHLORIDE,CL 97 mmol/L (98-107); CREATININE 1.1 mg/dL (0.8-1.3); GLUCOSE RANDOM 239 mg/dL (74-106); POTASSIUM,K 2.8 mmol/L (3.5-5.1); PROTEIN TOTAL,TP 6.4 g/dL (6.4-8.2); SODIUM,NA 133 mmol/L (136-148)
[2023-01-08 06:33] LABS: ESTIMATED GFR 73 mL/min (>60)
[2023-01-08] MEDS ORDERED: Magnesium Sulfate/Water 2 GM in Premix Bag 1 BAG IV ONE (07:22)
[2023-01-08 07:27] LABS: HEMOGLOBIN A1C 4.6 %
[2023-01-08] MEDS: Multivitamin Tab PO SCH (08:39)
[2023-01-08] MEDS: Potassium Chloride 20 MEQ Tab.ER PO SCH ×2 (08:40→21:19)
[2023-01-08] MEDS ORDERED: Thiamine 200 MG/2 ML MDV IVPUSH SCH ×2 (09:00→14:00)
[2023-01-08] MEDS ORDERED: Thiamine 500 MG in Sodium Chloride 0.9% 250 ML IV SCH (14:00)
[2023-01-08 21:12] LABS: AMPHETAMINES SCREEN, URINE NEGATIVE (CUTOFF=500); BARBITURATE SCREEN,URINE NEGATIVE (CUTOFF=200); BENZODIAZEPINES SCREEN,URINE PRESUMPTIVE POSITIVE (CUTOFF=150); BUPRENORPHINE SCREEN,URINE NEGATIVE (CUTOFF=10); METHADONE SCREEN, URINE NEGATIVE (CUTOFF=200); METHAMPHETAMINES SCREEN, URINE NEGATIVE (CUTOFF=500); OXYCODONE SCREEN,URINE NEGATIVE (CUT0FF=100); PCP SCREEN,URINE NEGATIVE (CUTOFF=25); PROPOXYPHENE SCREEN,URINE NEGATIVE (CUTOFF=300); THC SCREEN,URINE 20 NG/ML NEGATIVE (CUTOFF=50)
[2023-01-08] MEDS ORDERED: diphenhydrAMINE 25 MG Cap PO PRN (22:39)
[2023-01-09 06:23] LABS: BASOPHILS PERCENT AUTO 0.6 % (0.0-1.5); EOSINOPHILS ABSOLUTE AUTO 0.1 K/uL (0.0-0.7); EOSINOPHILS PERCENT AUTO 1.3 % (0.0-7.0); HEMATOCRIT 38.7 % (38.0-50.0); HEMOGLOBIN 13.4 g/dL (13.0-17.0); LYMPHOCYTES ABSOLUTE AUTO 1.8 K/uL (0.6-2.4); LYMPHOCYTES PERCENT AUTO 38.2 % (16.0-40.0); MEAN CORPUSCULAR HEMOGLOBIN 31.6 pg (27.0-32.0); MEAN CORPUSCULAR HGB CONC 34.6 g/dL (31.0-37.0); MEAN CORPUSCULAR VOLUME 91.3 fL (80.0-98.0); MONOCYTES ABSOLUTE AUTO 0.4 K/uL (0.0-0.8); MONOCYTES PERCENT AUTO 7.8 % (0.0-15.0); NEUTROPHILS ABSOLUTE AUTO 2.5 K/uL (1.4-5.7); NEUTROPHILS PERCENT AUTO 52.1 % (48.0-80.0); NRBC ABSOLUTE 0 K/uL; RED BLOOD CELL COUNT 4.24 M/uL (4.50-5.90); WHITE BLOOD CELL COUNT,WBC 4.74 K/uL (4.0-11.0)
[2023-01-09 06:55] LABS: A/G RATIO 0.9 (0.9-1.6); ALANINE AMINOTRANSFERASE,ALT 30 IU/L (14-63); ALBUMIN 2.8 g/dL (3.4-5.0); ALKALINE PHOSPHATASE 65 U/L (46-116); ASPARTATE AMNIOTRANSFERASE,AST 109 IU/L (15-37); BILIRUBIN TOTAL 1.4 mg/dL (0.2-1.0); BLOOD UREA NITROGEN,BUN 11 mg/dL (7.0-18.0); CALCIUM 8.5 mg/dL (8.5-10.1); CARBON DIOXIDE,CO2 26.1 mmol/L (21.0-32.0); CHLORIDE,CL 101 mmol/L (98-107); GLUCOSE RANDOM 116 mg/dL (74-106); POTASSIUM,K 3.4 mmol/L (3.5-5.1); PROTEIN TOTAL,TP 5.9 g/dL (6.4-8.2); SODIUM,NA 135 mmol/L (136-148)
[2023-01-09 06:56] LABS: ESTIMATED GFR 82 mL/min (>60)
[2023-01-09 06:58] LABS: PLATELET COUNT,PLT 57 K/uL (150-400)
[2023-01-09] MEDS ORDERED: Potassium Chloride 20 MEQ Tab.ER PO ONE (07:35)
[2023-01-09] MEDS ORDERED: Magnesium Sulfate/Water 4 GM in Premix Bag 1 BAG IV ONE (07:35)
[2023-01-09] MEDS ORDERED: Thiamine 500 MG in Sodium Chloride 0.9% 250 ML IV SCH (08:00)
[2023-01-09] MEDS: Multivitamin Tab PO SCH (08:47)
[2023-01-09] MEDS ORDERED: Potassium Phosphates 15 MMOLE in Sodium Chloride 0.9% 500 ML IV ONE (14:00)
[2023-01-11] MEDS ORDERED: Thiamine 250 MG in Sodium Chloride 0.9% 250 ML IV SCH (09:00)
== END 2023-01-09 14:35 | disposition left against medical advice (07) | DRG 641 ==
LOC: MW.ED 12:32 → OBSVTOIN 18:11 → MW.MS 18:11
PROVIDERS: ADMIT Internal Medicine; ATTEND Internal Medicine
PROC: 009U3ZX Drainage of Spinal Canal, Percutaneous Approach, Diagnostic (ICD-10-PCS; principal; 2023-01-07)
DX: E86.0 Dehydration (principal); E46 Unspecified protein-calorie malnutrition; E51.2 Wernicke's encephalopathy; A52.3 Neurosyphilis, unspecified; E83.42 Hypomagnesemia; E87.6 Hypokalemia; I95.9 Hypotension, unspecified; I10 Essential (primary) hypertension; F10.20 Alcohol dependence, uncomplicated; D69.6 Thrombocytopenia, unspecified; L29.9 Pruritus, unspecified; F41.9 Anxiety disorder, unspecified; Z79.82 Long term (current) use of aspirin; Z79.899 Other long term (current) drug therapy; Z86.16 Personal history of COVID-19; Z68.26 Body mass index [BMI] 26.0-26.9, adult; Z86.73 Personal history of transient ischemic attack (TIA), and cerebral infarction without residual deficits
CPT/HCPCS: 36415; 62270; 70450; 72125; 80053; 80307; 82945; 83690; 83735; 84100; 84157; 84484; 85025; 85610; 86592 ×2; 87070; 87205; 87389; 89050; 93005; 96365; 96366; 96375; 99291; 99292; J2060; J3411; J3475; J3480; J3490; J7050; 80305-QW; 82607; 83036; 93010; 96361; 96367; 97110-GP; 97162-GP; 97530-GP; 99285; A9270-GY; G0378; J7120

== ENCOUNTER 2023-05-09 10:39 | Observation (INO) | payer MEDICARE, MEDICAID ==
[2023-05-09] MEDS ORDERED: Sodium Chloride 0.9% 10 ML Syringe FLUSH PRN (10:45)
[2023-05-09] MEDS ORDERED: Sodium Chloride 0.9% 2.5 ML Syringe FLUSH PRN (10:45)
[2023-05-09] MEDS ORDERED: Aspirin 81 MG Tab.Chew PO ONE (11:19)
[2023-05-09] MEDS ORDERED: Magnesium Sulfate/Water 2 GM in Premix Bag 1 BAG IV ONE (11:19)
[2023-05-09 11:28] LABS: BASOPHILS ABSOLUTE AUTO 0.04 K/uL (0.00-0.20); BASOPHILS PERCENT AUTO 0.6 % (0.0-1.0); EOSINOPHILS ABSOLUTE AUTO 0.02 K/uL (0.00-0.45); EOSINOPHILS PERCENT AUTO 0.3 % (0.0-6.0); HEMATOCRIT 33.8 % (42.0-52.0); HEMOGLOBIN 12.6 g/dL (14.0-18.0); IMMATURE GRAN ABSOLUTE AUTO 0.05 K/uL (0.00-0.05); IMMATURE GRAN PERCENT AUTO 0.7 % (0.0-0.4); LYMPHOCYTES ABSOLUTE AUTO 1.24 K/uL (1.00-4.80); LYMPHOCYTES PERCENT AUTO 17.3 % (24.0-44.0); MEAN CORPUSCULAR HEMOGLOBIN 35.7 pg (28.0-32.0); MEAN CORPUSCULAR HGB CONC 37.3 g/dL (32.0-36.0); MEAN CORPUSCULAR VOLUME 95.8 fL (83.0-99.0); MEAN PLATELET VOLUME 11.3 fL (9.4-12.4); MONOCYTES ABSOLUTE AUTO 0.87 K/uL (0.00-0.80); MONOCYTES PERCENT AUTO 12.2 % (0.0-8.0); NEUTROPHILS ABSOLUTE AUTO 4.94 K/uL (1.80-7.70); NEUTROPHILS PERCENT AUTO 68.9 % (41.0-71.0); NRBC ABSOLUTE 0.05 K/uL (0.00-0.02); NRBC PERCENT 0.7 /100WBC (0.0-0.2); PLATELET COUNT,PLT 260 K/uL (150-400); RED BLOOD CELL COUNT 3.53 M/uL (4.52-5.90); WHITE BLOOD CELL COUNT,WBC 7.16 K/uL (3.9-11.3)
[2023-05-09] MEDS ORDERED: Lactated Ringers 1,000 ML IV SCH ×2 (11:30→13:45)
[2023-05-09 11:38] LABS: INR 1.08 (0.86-1.11)
[2023-05-09 11:57] LABS: CORONAVIRUS COVID-19 NAA NEGATIVE (NEGATIVE); INFLUENZA A NAA NEGATIVE (NEGATIVE); INFLUENZA B NAA NEGATIVE (NEGATIVE); RESPIRATORY SYNCYTIAL VIR NAA NEGATIVE (NEGATIVE)
[2023-05-09 12:13] LABS: A/G RATIO 0.9 (0.9-1.6); ACETAMINOPHEN <2.0 ug/mL; ALANINE AMINOTRANSFERASE,ALT 20 IU/L (14-63); ALBUMIN 3.6 g/dL (3.4-5.0); ALKALINE PHOSPHATASE 121 U/L (46-116); ASPARTATE AMNIOTRANSFERASE,AST 71 IU/L (15-37); BILIRUBIN TOTAL 2.1 mg/dL (0.2-1.0); BLOOD UREA NITROGEN,BUN 13 mg/dL (7.0-18.0); CALCIUM 9.7 mg/dL (8.5-10.1); CARBON DIOXIDE,CO2 25.3 mmol/L (21.0-32.0); CHLORIDE,CL 100 mmol/L (98-107); CREATININE 1.7 mg/dL (0.8-1.3); EST CRCL DRUG DOSING (CG) 35.79 mL/min; ETHANOL BLOOD MEDICAL <3 mg/dL; GLUCOSE RANDOM 222 mg/dL (74-106); LIPASE 9 U/L (16-77); MAGNESIUM 1.3 mg/dL (1.8-2.4); POTASSIUM,K 4.3 mmol/L (3.5-5.1); PROTEIN TOTAL,TP 7.7 g/dL (6.4-8.2); SALICYLATE <0.2 mg/dL (0.0-20.0); SODIUM,NA 142 mmol/L (136-148); TSH ULTRASENSITIVE 2.17 uIU/mL (0.36-3.74)
[2023-05-09 12:15] LABS: ESTIMATED GFR 43 mL/min (>60)
[2023-05-09 12:48] LABS: LACTIC ACID 6.6 mmol/L (0.4-2.0)
[2023-05-09] MEDS ORDERED: Iopamidol 755 MG/ML 500 ML Multipack Bottle IVPUSH STA (13:24)
[2023-05-09 13:55] LABS: APPEARANCE,URINE CLEAR; BILIRUBIN,URINE NEGATIVE (NEGATIVE); COLOR,URINE YELLOW; GLUCOSE,URINE 100 mg/dL (NEGATIVE); KETONES,URINE NEGATIVE (NEGATIVE); LEUKOCYTE ESTERASE,URINE NEGATIVE (NEGATIVE); NITRITE,URINE NEGATIVE (NEGATIVE); OCCULT BLOOD,URINE TRACE-INTACT (NEGATIVE); PH,URINE 6.5 (5.0-8.0); PROTEIN,URINE NEGATIVE (NEGATIVE); UROBILINOGEN,URINE 0.2 EU/dL (<2.0)
[2023-05-09 14:03] LABS: BACTERIA,URINE RARE (NEGATIVE); EPITHELIAL CELLS,URINE NOT SEEN (NONE-FEW); MUCUS,URINE LIGHT (NONE-MOD); WBC,URINE 0-1 (0-5/HPF)
[2023-05-09] MEDS ORDERED: Sodium Chloride 0.9% 1,000 ML IV ONE ×2 (17:35→21:47)
[2023-05-09] MEDS ORDERED: cefTRIAXone 1 GM in Sodium Chloride 0.9% 50 ML IV SCH (17:45)
[2023-05-09] MEDS ORDERED: LORazepam 2 MG/ML SDV IVPUSH PRN ×2 (18:06→20:27)
[2023-05-09] MEDS ORDERED: Enoxaparin 40 MG/0.4 ML Syringe SUBCUT SCH (18:15)
[2023-05-09] MEDS ORDERED: Pantoprazole 40 MG in Sodium Chloride 0.9% 10 ML IVPUSH SCH (18:15)
[2023-05-09] MEDS ORDERED: Sodium Chloride 0.9% 1,000 ML IV SCH (18:45)
[2023-05-09 18:59] LABS: LACTIC ACID 4.5 mmol/L (0.4-2.0)
[2023-05-09] MEDS: Folic Acid 1 MG/0.2 ML UD Syringe IV SCH (19:19)
[2023-05-09] MEDS: Thiamine 200 MG/2 ML MDV IVPUSH SCH (19:19)
[2023-05-09] MEDS: atorvaSTATin 20 MG Tab PO SCH (20:01)
[2023-05-10 07:18] LABS: BASOPHILS ABSOLUTE AUTO 0.05 K/uL (0.00-0.20); BASOPHILS PERCENT AUTO 0.8 % (0.0-1.0); EOSINOPHILS ABSOLUTE AUTO 0.05 K/uL (0.00-0.45); EOSINOPHILS PERCENT AUTO 0.8 % (0.0-6.0); HEMATOCRIT 30.2 % (42.0-52.0); HEMOGLOBIN 11.2 g/dL (14.0-18.0); IMMATURE GRAN ABSOLUTE AUTO 0.03 K/uL (0.00-0.05); IMMATURE GRAN PERCENT AUTO 0.5 % (0.0-0.4); LYMPHOCYTES ABSOLUTE AUTO 2.04 K/uL (1.00-4.80); LYMPHOCYTES PERCENT AUTO 33.2 % (24.0-44.0); MEAN CORPUSCULAR HEMOGLOBIN 35.6 pg (28.0-32.0); MEAN CORPUSCULAR HGB CONC 37.1 g/dL (32.0-36.0); MEAN CORPUSCULAR VOLUME 95.9 fL (83.0-99.0); MEAN PLATELET VOLUME 11.6 fL (9.4-12.4); MONOCYTES PERCENT AUTO 9.8 % (0.0-8.0); NEUTROPHILS ABSOLUTE AUTO 3.38 K/uL (1.80-7.70); NEUTROPHILS PERCENT AUTO 54.9 % (41.0-71.0); PLATELET COUNT,PLT 173 K/uL (150-400); RED BLOOD CELL COUNT 3.15 M/uL (4.52-5.90); WHITE BLOOD CELL COUNT,WBC 6.15 K/uL (3.9-11.3)
[2023-05-10] MEDS ORDERED: Sodium Chloride 0.9% 1,000 ML IV SCH (07:30)
[2023-05-10 07:32] LABS: A/G RATIO 0.8 (0.9-1.6); ALBUMIN 2.7 g/dL (3.4-5.0); BILIRUBIN TOTAL 1.5 mg/dL (0.2-1.0); CALCIUM 8.3 mg/dL (8.5-10.1); CARBON DIOXIDE,CO2 25.9 mmol/L (21.0-32.0); EST CRCL DRUG DOSING (CG) 61.1 mL/min; MAGNESIUM 1.5 mg/dL (1.8-2.4); POTASSIUM,K 3.4 mmol/L (3.5-5.1)
[2023-05-10 07:38] LABS: LACTIC ACID 1.9 mmol/L (0.4-2.0)
[2023-05-10] MEDS ORDERED: Aspirin 81 MG Tab.EC PO SCH (09:00)
[2023-05-10] MEDS: atorvaSTATin 20 MG Tab PO SCH (09:32)
[2023-05-10] MEDS: Folic Acid 1 MG/0.2 ML UD Syringe IV SCH (09:32)
[2023-05-10] MEDS: Thiamine 200 MG/2 ML MDV IVPUSH SCH (09:33)
== END 2023-05-10 16:08 | disposition left against medical advice (07) ==
LOC: MW.ED 10:39 → MW.MS 16:06
PROVIDERS: ADMIT Internal Medicine; ATTEND Internal Medicine
DX: E87.20 Acidosis, unspecified (principal); E86.0 Dehydration; F10.10 Alcohol abuse, uncomplicated; F17.200 Nicotine dependence, unspecified, uncomplicated; Z79.899 Other long term (current) drug therapy; Z20.822 Contact with and (suspected) exposure to COVID-19
CPT/HCPCS: 0241U; 36415; 70450; 71045; 71275; 80053; 80143; 80179; 80307; 81001; 83605; 83690; 83735; 83880; 84100; 84443; 84484; 85025; 85379; 85610; 87040; 93005; A9270; C9113; J0696; J1650; J3411; J3475; J3490; J7030; J7120; Q9967

== ENCOUNTER 2023-05-24 19:02 | Emergency (ER) | payer MEDICARE, MEDICAID ==
[2023-05-24] MEDS ORDERED: LORazepam 2 MG/ML SDV IVPUSH ONE (19:17)
[2023-05-24 20:02] LABS: BASOPHILS ABSOLUTE AUTO 0.01 K/uL (0.00-0.20); BASOPHILS PERCENT AUTO 0.2 % (0.0-1.0); EOSINOPHILS ABSOLUTE AUTO 0.01 K/uL (0.00-0.45); EOSINOPHILS PERCENT AUTO 0.2 % (0.0-6.0); HEMATOCRIT 31.2 % (42.0-52.0); HEMOGLOBIN 11.7 g/dL (14.0-18.0); IMMATURE GRAN ABSOLUTE AUTO 0.01 K/uL (0.00-0.05); IMMATURE GRAN PERCENT AUTO 0.2 % (0.0-0.4); LYMPHOCYTES ABSOLUTE AUTO 0.82 K/uL (1.00-4.80); LYMPHOCYTES PERCENT AUTO 19.2 % (24.0-44.0); MEAN CORPUSCULAR HEMOGLOBIN 35.9 pg (28.0-32.0); MEAN CORPUSCULAR HGB CONC 37.5 g/dL (32.0-36.0); MEAN CORPUSCULAR VOLUME 95.7 fL (83.0-99.0); MEAN PLATELET VOLUME 11.1 fL (9.4-12.4); MONOCYTES ABSOLUTE AUTO 0.21 K/uL (0.00-0.80); MONOCYTES PERCENT AUTO 4.9 % (0.0-8.0); NEUTROPHILS ABSOLUTE AUTO 3.21 K/uL (1.80-7.70); NEUTROPHILS PERCENT AUTO 75.3 % (41.0-71.0); RED BLOOD CELL COUNT 3.26 M/uL (4.52-5.90); WHITE BLOOD CELL COUNT,WBC 4.27 K/uL (3.9-11.3)
[2023-05-24 20:33] LABS: A/G RATIO 0.9 (0.9-1.6); ALBUMIN 3.7 g/dL (3.4-5.0); BILIRUBIN TOTAL 1.3 mg/dL (0.2-1.0); CALCIUM 8.7 mg/dL (8.5-10.1); CARBON DIOXIDE,CO2 25.1 mmol/L (21.0-32.0); CREATININE 1.1 mg/dL (0.8-1.3); EST CRCL DRUG DOSING (CG) 59.88 mL/min; MAGNESIUM 1.2 mg/dL (1.8-2.4); POTASSIUM,K 3.5 mmol/L (3.5-5.1); PROTEIN TOTAL,TP 7.8 g/dL (6.4-8.2)
[2023-05-24 20:42] LABS: PLATELET COUNT,PLT 75 K/uL (150-400)
[2023-05-24] MEDS ORDERED: Magnesium Sulfate/Water 2 GM in Premix Bag 1 BAG IV ONE (20:48)
== END 2023-05-24 23:42 | disposition home or self-care (01) ==
LOC: MW.ED 19:02
DX: E83.42 Hypomagnesemia (principal); R25.1 Tremor, unspecified; I10 Essential (primary) hypertension; E78.00 Pure hypercholesterolemia, unspecified; Z86.16 Personal history of COVID-19; Z79.82 Long term (current) use of aspirin; Z79.899 Other long term (current) drug therapy
CPT/HCPCS: 36415; 80053; 83735; 85025; 96365; 96375; 99285; J2060; J3475; 99284

== ENCOUNTER 2023-05-25 12:52 | Inpatient (IN) | payer MEDICARE, MEDICAID ==
[2023-05-25] MEDS ORDERED: Sodium Chloride 0.9% 10 ML Syringe FLUSH PRN (12:56)
[2023-05-25] MEDS ORDERED: Sodium Chloride 0.9% 2.5 ML Syringe FLUSH PRN (12:56)
[2023-05-25] MEDS ORDERED: Sodium Chloride 0.9% 1,000 ML IV ONE (12:56)
[2023-05-25 13:56] LABS: BASOPHILS ABSOLUTE AUTO 0.03 K/uL (0.00-0.20); BASOPHILS PERCENT AUTO 0.5 % (0.0-1.0); EOSINOPHILS ABSOLUTE AUTO 0.02 K/uL (0.00-0.45); EOSINOPHILS PERCENT AUTO 0.3 % (0.0-6.0); HEMATOCRIT 30.2 % (42.0-52.0); HEMOGLOBIN 11.1 g/dL (14.0-18.0); IMMATURE GRAN ABSOLUTE AUTO 0.02 K/uL (0.00-0.05); IMMATURE GRAN PERCENT AUTO 0.3 % (0.0-0.4); LYMPHOCYTES ABSOLUTE AUTO 0.97 K/uL (1.00-4.80); LYMPHOCYTES PERCENT AUTO 16.8 % (24.0-44.0); MEAN CORPUSCULAR HEMOGLOBIN 35.8 pg (28.0-32.0); MEAN CORPUSCULAR HGB CONC 36.8 g/dL (32.0-36.0); MEAN CORPUSCULAR VOLUME 97.4 fL (83.0-99.0); MEAN PLATELET VOLUME 11.7 fL (9.4-12.4); MONOCYTES ABSOLUTE AUTO 0.22 K/uL (0.00-0.80); MONOCYTES PERCENT AUTO 3.8 % (0.0-8.0); NEUTROPHILS ABSOLUTE AUTO 4.53 K/uL (1.80-7.70); NEUTROPHILS PERCENT AUTO 78.3 % (41.0-71.0); NRBC ABSOLUTE 0.02 K/uL (0.00-0.02); NRBC PERCENT 0.3 /100WBC (0.0-0.2); PLATELET COUNT,PLT 68 K/uL (150-400); WHITE BLOOD CELL COUNT,WBC 5.79 K/uL (3.9-11.3)
[2023-05-25 14:01] LABS: BICARBONATE,VENOUS 27 mEq/L (23-28); PCO2 VENOUS 45 mmHG (41-51); PH,VENOUS 7.38 (7.31-7.41); PO2 VENOUS < 30 mmHG
[2023-05-25 14:15] LABS: INR 1.12 (0.86-1.11)
[2023-05-25 14:27] LABS: LACTIC ACID 8.5 mmol/L (0.4-2.0)
[2023-05-25 14:41] LABS: ALANINE AMINOTRANSFERASE,ALT 22 IU/L (14-63); ALBUMIN 3.8 g/dL (3.4-5.0); ALKALINE PHOSPHATASE 123 U/L (46-116); ASPARTATE AMNIOTRANSFERASE,AST 92 IU/L (15-37); BILIRUBIN TOTAL 1.9 mg/dL (0.2-1.0); BLOOD UREA NITROGEN,BUN 4 mg/dL (7.0-18.0); CALCIUM 8.6 mg/dL (8.5-10.1); CARBON DIOXIDE,CO2 27.7 mmol/L (21.0-32.0); CHLORIDE,CL 97 mmol/L (98-107); CREATINE KINASE,CK 197 U/L (26-308); CREATININE 1.4 mg/dL (0.8-1.3); GLUCOSE RANDOM 176 mg/dL (74-106); LIPASE 10 U/L (16-77); POTASSIUM,K 3.3 mmol/L (3.5-5.1); PROTEIN TOTAL,TP 7.5 g/dL (6.4-8.2); SODIUM,NA 140 mmol/L (136-148); TSH ULTRASENSITIVE 1.01 uIU/mL (0.36-3.74)
[2023-05-25 14:43] LABS: ESTIMATED GFR 54 mL/min (>60); ETHANOL BLOOD MEDICAL < 3.0 mg/dL
[2023-05-25] MEDS ORDERED: Lactated Ringers 1,000 ML IV ONE ×2 (15:26→16:49)
[2023-05-25] MEDS ORDERED: Thiamine 200 MG/2 ML MDV IVPUSH ONE (15:52)
[2023-05-25] MEDS ORDERED: Cefepime 2 GM in Sodium Chloride 0.9% 50 ML IV ONE (15:52)
[2023-05-25] MEDS ORDERED: Ondansetron 4 MG/2 ML SDV IVPUSH PRN (16:40)
[2023-05-25] MEDS ORDERED: Acetaminophen 325 MG Tab PO PRN (16:40)
[2023-05-25] MEDS ORDERED: Albuterol/Ipratropium 3.0-0.5 MG/3 ML Neb Soln NEB PRN (16:40)
[2023-05-25] MEDS ORDERED: Magnesium Sulfate/Water 2 GM in Premix Bag 1 BAG IV ONE (16:53)
[2023-05-25] MEDS ORDERED: Potassium Chloride 20 MEQ Tab.ER PO ONE (16:53)
[2023-05-25] MEDS ORDERED: Cefepime 2 GM in Sodium Chloride 0.9% 50 ML IV SCH (17:00)
[2023-05-25] MEDS: Pantoprazole 40 MG in Sodium Chloride 0.9% 10 ML IVPUSH SCH (17:19)
[2023-05-25 18:01] LABS: APPEARANCE,URINE CLEAR; BILIRUBIN,URINE NEGATIVE (NEGATIVE); COLOR,URINE YELLOW; GLUCOSE,URINE NEGATIVE (NEGATIVE); KETONES,URINE TRACE mg/dL (NEGATIVE); LEUKOCYTE ESTERASE,URINE NEGATIVE (NEGATIVE); NITRITE,URINE NEGATIVE (NEGATIVE); OCCULT BLOOD,URINE TRACE-INTACT (NEGATIVE); PH,URINE 6.5 (5.0-8.0); PROTEIN,URINE NEGATIVE (NEGATIVE)
[2023-05-25 18:10] LABS: AMPHETAMINES SCREEN, URINE NEGATIVE (CUTOFF=500); BARBITURATE SCREEN,URINE NEGATIVE (CUTOFF=200); BENZODIAZEPINES SCREEN,URINE PRESUMPTIVE POSITIVE (CUTOFF=150); BUPRENORPHINE SCREEN,URINE NEGATIVE (CUTOFF=10); METHADONE SCREEN, URINE NEGATIVE (CUTOFF=200); METHAMPHETAMINES SCREEN, URINE NEGATIVE (CUTOFF=500); OXYCODONE SCREEN,URINE NEGATIVE (CUT0FF=100); PCP SCREEN,URINE NEGATIVE (CUTOFF=25); THC SCREEN,URINE 20 NG/ML NEGATIVE (CUTOFF=50)
[2023-05-25 18:17] LABS: RBC,URINE 0-2 (0-2/HPF)
[2023-05-25 18:18] LABS: BACTERIA,URINE RARE (NEGATIVE); EPITHELIAL CELLS,URINE RARE (NONE-FEW)
[2023-05-25] MEDS: Folic Acid 1 MG/0.2 ML UD Syringe IV SCH (18:30)
[2023-05-25 18:40] LABS: LACTIC ACID 6.5 mmol/L (0.4-2.0)
[2023-05-25] MEDS: Lactated Ringers 1,000 ML IV SCH (20:19)
[2023-05-25] MEDS: Lactulose Soln 10 GM/15 ML 15 ML UD Cup PO SCH (20:30)
[2023-05-25 22:00] LABS: LACTIC ACID 5.3 mmol/L (0.4-2.0)
[2023-05-26] MEDS: Cefepime 2 GM in Sodium Chloride 0.9% 50 ML IV SCH ×3 (00:42→17:07)
[2023-05-26 02:48] LABS: LACTIC ACID 4.7 mmol/L (0.4-2.0)
[2023-05-26] MEDS: LORazepam 2 MG/ML SDV IV PRN (04:41)
[2023-05-26 06:03] LABS: BASOPHILS ABSOLUTE AUTO 0.03 K/uL (0.00-0.20); BASOPHILS PERCENT AUTO 0.6 % (0.0-1.0); EOSINOPHILS ABSOLUTE AUTO 0.04 K/uL (0.00-0.45); EOSINOPHILS PERCENT AUTO 0.8 % (0.0-6.0); HEMATOCRIT 27.6 % (42.0-52.0); HEMOGLOBIN 10.2 g/dL (14.0-18.0); IMMATURE GRAN ABSOLUTE AUTO 0.02 K/uL (0.00-0.05); IMMATURE GRAN PERCENT AUTO 0.4 % (0.0-0.4); LYMPHOCYTES ABSOLUTE AUTO 1.89 K/uL (1.00-4.80); LYMPHOCYTES PERCENT AUTO 36.6 % (24.0-44.0); MEAN CORPUSCULAR HEMOGLOBIN 35.4 pg (28.0-32.0); MEAN CORPUSCULAR VOLUME 95.8 fL (83.0-99.0); MEAN PLATELET VOLUME 12.6 fL (9.4-12.4); MONOCYTES ABSOLUTE AUTO 0.39 K/uL (0.00-0.80); MONOCYTES PERCENT AUTO 7.6 % (0.0-8.0); NEUTROPHILS ABSOLUTE AUTO 2.79 K/uL (1.80-7.70); PLATELET COUNT,PLT 58 K/uL (150-400); RED BLOOD CELL COUNT 2.88 M/uL (4.52-5.90); WHITE BLOOD CELL COUNT,WBC 5.16 K/uL (3.9-11.3)
[2023-05-26 06:29] LABS: LACTIC ACID 3.5 mmol/L (0.4-2.0)
[2023-05-26] MEDS: Lactated Ringers 1,000 ML IV SCH ×3 (06:31→21:09)
[2023-05-26 06:36] LABS: A/G RATIO 0.9 (0.9-1.6); BILIRUBIN TOTAL 1.5 mg/dL (0.2-1.0); CALCIUM 8.1 mg/dL (8.5-10.1); CARBON DIOXIDE,CO2 27.6 mmol/L (21.0-32.0); CREATININE 1.1 mg/dL (0.8-1.3); EST CRCL DRUG DOSING (CG) 57.46 mL/min; MAGNESIUM 1.4 mg/dL (1.8-2.4); PROTEIN TOTAL,TP 6.2 g/dL (6.4-8.2)
[2023-05-26] MEDS ORDERED: Potassium Chloride 20 MEQ Tab.ER PO ONE (07:08)
[2023-05-26] MEDS ORDERED: Magnesium Sulfate/Water 2 GM in Premix Bag 1 BAG IV ONE (07:08)
[2023-05-26] MEDS ORDERED: Potassium Chloride 100 ML IV ONE (07:30)
[2023-05-26] MEDS: Folic Acid 1 MG/0.2 ML UD Syringe IV SCH (08:21)
[2023-05-26] MEDS: Lactulose Soln 10 GM/15 ML 15 ML UD Cup PO SCH ×2 (08:21→14:35)
[2023-05-26] MEDS: Thiamine 200 MG/2 ML MDV IVPUSH SCH (08:22)
[2023-05-26] MEDS ORDERED: Thiamine 200 MG/2 ML MDV IVPUSH SCH (09:00)
[2023-05-26] MEDS ORDERED: Thiamine 200 MG in Sodium Chloride 0.9% 100 ML IV SCH (09:00)
[2023-05-26] MEDS ORDERED: LORazepam 1 MG Tab PO PRN (09:51)
[2023-05-26] MEDS ORDERED: FLU (Fluad Quad) 2023-24(65UP)/MF59C/PF 60 MCG/0.5 ML Syringe IM ONE (10:00)
[2023-05-26 10:34] LABS: LACTIC ACID 4.4 mmol/L (0.4-2.0)
[2023-05-26 14:20] LABS: LACTIC ACID 5.4 mmol/L (0.4-2.0)
[2023-05-26] MEDS: Lactated Ringers 1,000 ML IV ONE ×2 (14:36→15:07)
[2023-05-26] MEDS: Pantoprazole 40 MG in Sodium Chloride 0.9% 10 ML IVPUSH SCH (17:07)
[2023-05-26 19:28] LABS: LACTIC ACID 4.2 mmol/L (0.4-2.0)
[2023-05-26 23:43] LABS: LACTIC ACID 4.1 mmol/L (0.4-2.0)
[2023-05-27] MEDS: LORazepam 2 MG/ML SDV IV PRN (05:12)
[2023-05-27 06:16] LABS: A/G RATIO 0.9 (0.9-1.6); ALBUMIN 2.8 g/dL (3.4-5.0); BILIRUBIN TOTAL 1.3 mg/dL (0.2-1.0); CALCIUM 8.3 mg/dL (8.5-10.1); CARBON DIOXIDE,CO2 26.8 mmol/L (21.0-32.0); CREATININE 1.1 mg/dL (0.8-1.3); EST CRCL DRUG DOSING (CG) 57.46 mL/min; POTASSIUM,K 3.1 mmol/L (3.5-5.1)
[2023-05-27 06:46] LABS: BASOPHILS ABSOLUTE AUTO 0.03 K/uL (0.00-0.20); BASOPHILS PERCENT AUTO 0.6 % (0.0-1.0); EOSINOPHILS ABSOLUTE AUTO 0.03 K/uL (0.00-0.45); EOSINOPHILS PERCENT AUTO 0.6 % (0.0-6.0); HEMATOCRIT 24.4 % (42.0-52.0); HEMOGLOBIN 8.8 g/dL (14.0-18.0); IMMATURE GRAN ABSOLUTE AUTO 0.23 K/uL (0.00-0.05); IMMATURE GRAN PERCENT AUTO 4.7 % (0.0-0.4); LYMPHOCYTES ABSOLUTE AUTO 0.77 K/uL (1.00-4.80); LYMPHOCYTES PERCENT AUTO 15.9 % (24.0-44.0); MEAN CORPUSCULAR HEMOGLOBIN 35.1 pg (28.0-32.0); MEAN CORPUSCULAR HGB CONC 36.1 g/dL (32.0-36.0); MEAN CORPUSCULAR VOLUME 97.2 fL (83.0-99.0); MEAN PLATELET VOLUME 12.5 fL (9.4-12.4); MONOCYTES ABSOLUTE AUTO 0.32 K/uL (0.00-0.80); MONOCYTES PERCENT AUTO 6.6 % (0.0-8.0); NEUTROPHILS ABSOLUTE AUTO 3.47 K/uL (1.80-7.70); NEUTROPHILS PERCENT AUTO 71.6 % (41.0-71.0); PLATELET COUNT,PLT 46 K/uL (150-400); RED BLOOD CELL COUNT 2.51 M/uL (4.52-5.90); WHITE BLOOD CELL COUNT,WBC 4.85 K/uL (3.9-11.3)
[2023-05-27] MEDS: Lactulose Soln 10 GM/15 ML 15 ML UD Cup PO SCH ×3 (07:10→14:31)
[2023-05-27] MEDS ORDERED: Potassium Chloride 20 MEQ Tab.ER PO ONE (07:17)
[2023-05-27] MEDS: Cefepime 2 GM in Sodium Chloride 0.9% 50 ML IV SCH ×4 (08:09→16:33)
[2023-05-27] MEDS: Thiamine 200 MG/2 ML MDV IVPUSH SCH (08:10)
[2023-05-27] MEDS: Folic Acid 1 MG/0.2 ML UD Syringe IV SCH (08:11)
[2023-05-27] MEDS: Furosemide 40 MG Tab PO SCH (10:35)
[2023-05-27] MEDS: Pantoprazole 40 MG in Sodium Chloride 0.9% 10 ML IVPUSH SCH (16:33)
[2023-05-27] MEDS: Lactated Ringers 1,000 ML IV SCH (17:23)
[2023-05-27] MEDS ORDERED: LORazepam 1 MG Tab PO ONE (18:25)
[2023-05-28] MEDS: Cefepime 2 GM in Sodium Chloride 0.9% 50 ML IV SCH ×2 (01:40→09:58)
[2023-05-28] MEDS: Lactulose Soln 10 GM/15 ML 15 ML UD Cup PO SCH ×2 (01:41→07:00)
[2023-05-28] MEDS: Lactated Ringers 1,000 ML IV SCH (04:24)
[2023-05-28 06:55] LABS: BASOPHILS ABSOLUTE AUTO 0.01 K/uL (0.00-0.20); BASOPHILS PERCENT AUTO 0.2 % (0.0-1.0); EOSINOPHILS ABSOLUTE AUTO 0.04 K/uL (0.00-0.45); EOSINOPHILS PERCENT AUTO 0.6 % (0.0-6.0); HEMATOCRIT 23.3 % (42.0-52.0); HEMOGLOBIN 8.7 g/dL (14.0-18.0); IMMATURE GRAN ABSOLUTE AUTO 0.01 K/uL (0.00-0.05); IMMATURE GRAN PERCENT AUTO 0.2 % (0.0-0.4); LYMPHOCYTES ABSOLUTE AUTO 1.13 K/uL (1.00-4.80); MEAN CORPUSCULAR HEMOGLOBIN 36.4 pg (28.0-32.0); MEAN CORPUSCULAR HGB CONC 37.3 g/dL (32.0-36.0); MEAN CORPUSCULAR VOLUME 97.5 fL (83.0-99.0); MEAN PLATELET VOLUME 11.8 fL (9.4-12.4); MONOCYTES ABSOLUTE AUTO 0.88 K/uL (0.00-0.80); NEUTROPHILS ABSOLUTE AUTO 4.22 K/uL (1.80-7.70); PLATELET COUNT,PLT 46 K/uL (150-400); RED BLOOD CELL COUNT 2.39 M/uL (4.52-5.90); WHITE BLOOD CELL COUNT,WBC 6.29 K/uL (3.9-11.3)
[2023-05-28 07:13] LABS: A/G RATIO 0.9 (0.9-1.6); ALBUMIN 2.9 g/dL (3.4-5.0); BILIRUBIN TOTAL 1.4 mg/dL (0.2-1.0); CALCIUM 8.6 mg/dL (8.5-10.1); CARBON DIOXIDE,CO2 25.8 mmol/L (21.0-32.0); CREATININE 1.3 mg/dL (0.8-1.3); EST CRCL DRUG DOSING (CG) 48.62 mL/min; POTASSIUM,K 3.1 mmol/L (3.5-5.1); PROTEIN TOTAL,TP 6.3 g/dL (6.4-8.2)
[2023-05-28] MEDS ORDERED: Potassium Chloride 20 MEQ Tab.ER PO ONE (07:40)
[2023-05-28] MEDS ORDERED: Magnesium Sulfate/Water 2 GM in Premix Bag 1 BAG IV ONE (07:40)
[2023-05-28] MEDS: Folic Acid 1 MG/0.2 ML UD Syringe IV SCH (08:22)
[2023-05-28] MEDS: Thiamine 200 MG/2 ML MDV IVPUSH SCH (08:24)
[2023-05-28] MEDS: Furosemide 40 MG Tab PO SCH (10:06)
== END 2023-05-28 13:15 | disposition home or self-care (01) | DRG 433 ==
LOC: MW.ED 12:52 → MW.MS 15:52 → OBSVTOIN 15:52 → MW.MS 05-26 13:46
PROVIDERS: ADMIT Family Medicine; ATTEND Family Medicine
PROC: 3E0234Z Introduction of Serum, Toxoid and Vaccine into Muscle, Percutaneous Approach (ICD-10-PCS; principal; 2023-05-26)
DX: K70.10 Alcoholic hepatitis without ascites (principal); E51.2 Wernicke's encephalopathy; N17.9 Acute kidney failure, unspecified; E87.20 Acidosis, unspecified; E72.20 Disorder of urea cycle metabolism, unspecified; F10.239 Alcohol dependence with withdrawal, unspecified; E87.21 Acute metabolic acidosis; K76.82 Hepatic encephalopathy; I10 Essential (primary) hypertension; E87.6 Hypokalemia; T68.XXXA Hypothermia, initial encounter; E86.1 Hypovolemia; E83.42 Hypomagnesemia; Z79.82 Long term (current) use of aspirin; Z79.899 Other long term (current) drug therapy; Z86.16 Personal history of COVID-19; Z23 Encounter for immunization
CPT/HCPCS: 36415; 71045; 80053; 80307; 82140; 82550; 82803; 83605; 83690; 83735; 84100; 84443; 84484; 85025; 85610; 87040 ×2; 93005; 96361; 99285; J3490; J7030; J7120; 80305-QW; 81001; 90694; 93010; 96365; 96366; 96367; 96375; 96376; 97161-GP; 99222; 99232; 99239; 99291; A9270-GY; C9113; G0008; G0378; J0692; J2060; J3411; J3475; J3480

== ENCOUNTER 2023-06-09 07:28 | Emergency (ER) | payer MEDICARE, MEDICAID | END 2023-06-09 08:55 | disposition home or self-care (01) | LOC: MW.ED 07:28 | DX: F10.120 Alcohol abuse with intoxication, uncomplicated (principal); I10 Essential (primary) hypertension; Z86.16 Personal history of COVID-19; Z79.82 Long term (current) use of aspirin; Z79.899 Other long term (current) drug therapy | CPT/HCPCS: 99282; 99284 ==

== ENCOUNTER 2023-06-10 04:41 | Emergency (ER) | payer MEDICARE, MEDICAID ==
[2023-06-10] MEDS ORDERED: Sodium Chloride 0.9% 10 ML Syringe FLUSH PRN (05:07)
[2023-06-10] MEDS ORDERED: Sodium Chloride 0.9% 2.5 ML Syringe FLUSH PRN (05:07)
[2023-06-10 05:45] LABS: A/G RATIO 0.8 (0.9-1.6); ALBUMIN 3.2 g/dL (3.4-5.0); BILIRUBIN TOTAL 0.7 mg/dL (0.2-1.0); CARBON DIOXIDE,CO2 24.4 mmol/L (21.0-32.0); CREATININE 0.9 mg/dL (0.8-1.3); EST CRCL DRUG DOSING (CG) 70.23 mL/min; POTASSIUM,K 3.1 mmol/L (3.5-5.1)
== END 2023-06-10 05:46 | disposition home or self-care (01) ==
LOC: MW.ED 04:41
DX: R53.1 Weakness (principal); I10 Essential (primary) hypertension; F10.90 Alcohol use, unspecified, uncomplicated; Y90.8 Blood alcohol level of 240 mg/100 ml or more; Z86.16 Personal history of COVID-19; Z79.82 Long term (current) use of aspirin; Z79.899 Other long term (current) drug therapy
CPT/HCPCS: 36415; 80053; 80307; 83690; 84484; 93010; 99282; 99285

== ENCOUNTER 2023-06-10 06:07 | Emergency (ER) | payer MEDICARE, MEDICAID | END 2023-06-10 08:05 | disposition home or self-care (01) | LOC: MW.ED 06:07 | DX: F10.129 Alcohol abuse with intoxication, unspecified (principal); R79.89 Other specified abnormal findings of blood chemistry; I10 Essential (primary) hypertension; Z79.82 Long term (current) use of aspirin; Z79.899 Other long term (current) drug therapy; Z86.16 Personal history of COVID-19; Y90.9 Presence of alcohol in blood, level not specified | CPT/HCPCS: 36415; 71045; 71045-26; 84484; 93005; 93010; 99283; 99284 ==

== ENCOUNTER 2023-06-15 12:44 | Emergency (ER) | payer MEDICARE, MEDICAID ==
[2023-06-15] MEDS ORDERED: Thiamine 100 MG in Sodium Chloride 0.9% 100 ML IV ONE (13:05)
[2023-06-15] MEDS: Sodium Chloride 0.9% 10 ML Syringe FLUSH PRN (13:41)
[2023-06-15] MEDS: Sodium Chloride 0.9% 2.5 ML Syringe FLUSH PRN (13:41)
[2023-06-15] MEDS: Sodium Chloride 0.9% 1,000 ML IV ONE ×2 (13:41)
[2023-06-15 13:44] LABS: A/G RATIO 0.8 (0.9-1.6); ALANINE AMINOTRANSFERASE,ALT 21 IU/L (14-63); ALBUMIN 3.7 g/dL (3.4-5.0); ALKALINE PHOSPHATASE 112 U/L (46-116); ASPARTATE AMNIOTRANSFERASE,AST 125 IU/L (15-37); BILIRUBIN TOTAL 2.4 mg/dL (0.2-1.0); BLOOD UREA NITROGEN,BUN 9 mg/dL (7.0-18.0); CALCIUM 8.7 mg/dL (8.5-10.1); CHLORIDE,CL 100 mmol/L (98-107); CREATININE 1.1 mg/dL (0.8-1.3); EST CRCL DRUG DOSING (CG) 60.99 mL/min; GLUCOSE RANDOM 131 mg/dL (74-106); LIPASE 7 U/L (16-77); POTASSIUM,K 3.3 mmol/L (3.5-5.1); PROTEIN TOTAL,TP 8.1 g/dL (6.4-8.2); SODIUM,NA 144 mmol/L (136-148)
[2023-06-15 13:45] LABS: ESTIMATED GFR 73 mL/min (>60)
[2023-06-15 13:46] LABS: ETHANOL BLOOD MEDICAL < 3.0 mg/dL
[2023-06-15 14:05] LABS: BASOPHILS ABSOLUTE AUTO 0.04 K/uL (0.00-0.20); BASOPHILS PERCENT AUTO 0.7 % (0.0-1.0); EOSINOPHILS ABSOLUTE AUTO 0.12 K/uL (0.00-0.45); EOSINOPHILS PERCENT AUTO 2.1 % (0.0-6.0); HEMATOCRIT 36.3 % (42.0-52.0); HEMOGLOBIN 13.2 g/dL (14.0-18.0); IMMATURE GRAN ABSOLUTE AUTO 0.04 K/uL (0.00-0.05); IMMATURE GRAN PERCENT AUTO 0.7 % (0.0-0.4); LYMPHOCYTES ABSOLUTE AUTO 1.49 K/uL (1.00-4.80); LYMPHOCYTES PERCENT AUTO 26.5 % (24.0-44.0); MEAN CORPUSCULAR HGB CONC 36.4 g/dL (32.0-36.0); MEAN CORPUSCULAR VOLUME 96.3 fL (83.0-99.0); MEAN PLATELET VOLUME 12.7 fL (9.4-12.4); MONOCYTES ABSOLUTE AUTO 0.41 K/uL (0.00-0.80); MONOCYTES PERCENT AUTO 7.3 % (0.0-8.0); NEUTROPHILS ABSOLUTE AUTO 3.52 K/uL (1.80-7.70); NEUTROPHILS PERCENT AUTO 62.7 % (41.0-71.0); NRBC PERCENT 1.8 /100WBC (0.0-0.2); PLATELET COUNT,PLT 65 K/uL (150-400); RED BLOOD CELL COUNT 3.77 M/uL (4.52-5.90); WHITE BLOOD CELL COUNT,WBC 5.62 K/uL (3.9-11.3)
[2023-06-15] MEDS: Thiamine 200 MG/2 ML MDV IV ONE (14:06)
[2023-06-15] MEDS: Folic Acid 1 MG/0.2 ML UD Syringe IV SCH (14:06)
[2023-06-15 14:14] LABS: INR 1.22 (0.86-1.11)
[2023-06-15] MEDS: Magnesium Sulfate/Water 2 GM in Premix Bag 1 BAG IV ONE (14:21)
[2023-06-15] MEDS: Potassium Chloride 20 MEQ Tab.ER PO ONE (14:21)
[2023-06-15 14:33] LABS: LACTIC ACID 2.3 mmol/L (0.4-2.0)
[2023-06-15 14:50] LABS: CORONAVIRUS COVID-19 NAA NEGATIVE (NEGATIVE); INFLUENZA A NAA NEGATIVE (NEGATIVE); INFLUENZA B NAA NEGATIVE (NEGATIVE)
[2023-06-15] MEDS ORDERED: Nitroglycerin 0.4 MG Tab.SL SL PRN (17:04)
[2023-06-15] MEDS: Aspirin 81 MG Tab.Chew PO ONE (17:40)
[2023-06-15] MEDS: Heparin Sodium 5,000 Units/ML Vial IVPUSH ONE (18:07)
[2023-06-15] MEDS: Heparin Sodium/0.45% NaCl 500 ML IV SCH (18:11)
[2023-06-15 18:22] LABS: COLOR,URINE YELLOW; GLUCOSE,URINE NEGATIVE (NEGATIVE); KETONES,URINE 15 mg/dL (NEGATIVE); LEUKOCYTE ESTERASE,URINE NEGATIVE (NEGATIVE); NITRITE,URINE POSITIVE (NEGATIVE); OCCULT BLOOD,URINE SMALL (NEGATIVE); PH,URINE 6.5 (5.0-8.0); PROTEIN,URINE NEGATIVE (NEGATIVE)
[2023-06-15 18:27] LABS: APPEARANCE,URINE HAZY; BILIRUBIN,URINE SMALL (NEGATIVE)
[2023-06-15 18:28] LABS: BACTERIA,URINE FEW (NEGATIVE); EPITHELIAL CELLS,URINE NOT SEEN (NONE-FEW); HYALINE CASTS,URINE 0-1 (0-2/LPF); MUCUS,URINE LIGHT (NONE-MOD); WBC,URINE 0-2 (0-5/HPF)
[2023-06-15 18:31] LABS: AMPHETAMINES SCREEN, URINE NEGATIVE (CUTOFF=500); BARBITURATE SCREEN,URINE NEGATIVE (CUTOFF=200); BENZODIAZEPINES SCREEN,URINE NEGATIVE (CUTOFF=150); BUPRENORPHINE SCREEN,URINE NEGATIVE (CUTOFF=10); METHADONE SCREEN, URINE NEGATIVE (CUTOFF=200); METHAMPHETAMINES SCREEN, URINE NEGATIVE (CUTOFF=500); OXYCODONE SCREEN,URINE NEGATIVE (CUT0FF=100); PCP SCREEN,URINE NEGATIVE (CUTOFF=25); THC SCREEN,URINE 20 NG/ML NEGATIVE (CUTOFF=50)
== END 2023-06-15 20:43 ==
LOC: MW.ED 12:44
DX: I21.4 Non-ST elevation (NSTEMI) myocardial infarction (principal); I10 Essential (primary) hypertension; Z86.16 Personal history of COVID-19; Z79.82 Long term (current) use of aspirin; Z79.899 Other long term (current) drug therapy
CPT/HCPCS: 0240U; 36415; 70450; 71045; 72072; 72100; 72125; 80053; 80305; 80307; 81001; 82140; 83605; 83690; 83735; 84484; 85025; 85610; 85730; 87040; 93005; 96365; 96366; 96375; 99285; A9270; J1644; J3411; J3475; J3490; J7030; 93010

== ENCOUNTER 2023-07-05 19:50 | Emergency (ER) | payer MEDICARE ==
[2023-07-05] MEDS: Sodium Chloride 0.9% 1,000 ML IV ONE (20:02)
[2023-07-05] MEDS: Famotidine 20 MG Tab PO ONE (20:02)
[2023-07-05] MEDS: Aluminum Hydroxide/Magnesium Hydroxide/Simethicone XS Susp 30 ML Cup PO ONE (20:02)
[2023-07-05] MEDS: Sodium Chloride 0.9% 10 ML Syringe FLUSH PRN (20:03)
[2023-07-05] MEDS: Sodium Chloride 0.9% 2.5 ML Syringe FLUSH PRN (20:03)
[2023-07-05 20:47] LABS: BASOPHILS ABSOLUTE AUTO 0.04 K/uL (0.00-0.20); BASOPHILS PERCENT AUTO 0.9 % (0.0-1.0); EOSINOPHILS ABSOLUTE AUTO 0.02 K/uL (0.00-0.45); EOSINOPHILS PERCENT AUTO 0.4 % (0.0-6.0); HEMATOCRIT 31.7 % (42.0-52.0); IMMATURE GRAN ABSOLUTE AUTO 0.01 K/uL (0.00-0.05); IMMATURE GRAN PERCENT AUTO 0.2 % (0.0-0.4); LYMPHOCYTES ABSOLUTE AUTO 1.78 K/uL (1.00-4.80); LYMPHOCYTES PERCENT AUTO 38.1 % (24.0-44.0); MEAN CORPUSCULAR HEMOGLOBIN 33.8 pg (28.0-32.0); MEAN CORPUSCULAR HGB CONC 34.7 g/dL (32.0-36.0); MEAN CORPUSCULAR VOLUME 97.5 fL (83.0-99.0); MEAN PLATELET VOLUME 10.9 fL (9.4-12.4); MONOCYTES ABSOLUTE AUTO 0.44 K/uL (0.00-0.80); MONOCYTES PERCENT AUTO 9.4 % (0.0-8.0); NEUTROPHILS ABSOLUTE AUTO 2.38 K/uL (1.80-7.70); PLATELET COUNT,PLT 126 K/uL (150-400); RED BLOOD CELL COUNT 3.25 M/uL (4.52-5.90); WHITE BLOOD CELL COUNT,WBC 4.67 K/uL (3.9-11.3)
[2023-07-05 21:10] LABS: A/G RATIO 0.8 (0.9-1.6); ALBUMIN 3.2 g/dL (3.4-5.0); BILIRUBIN TOTAL 0.7 mg/dL (0.2-1.0); CALCIUM 8.4 mg/dL (8.5-10.1); CARBON DIOXIDE,CO2 22.8 mmol/L (21.0-32.0); CREATININE 1.1 mg/dL (0.8-1.3); EST CRCL DRUG DOSING (CG) 59.7 mL/min; POTASSIUM,K 3.6 mmol/L (3.5-5.1); PROTEIN TOTAL,TP 7.1 g/dL (6.4-8.2)
== END 2023-07-05 22:28 | disposition home or self-care (01) ==
LOC: MW.ED 19:50
DX: F10.129 Alcohol abuse with intoxication, unspecified (principal); I10 Essential (primary) hypertension; Z86.16 Personal history of COVID-19; Z79.82 Long term (current) use of aspirin; Z79.899 Other long term (current) drug therapy
CPT/HCPCS: 36415; 80053; 80307; 83690; 85025; 96360; 99284; A9270; J3490; J7030

== ENCOUNTER 2023-07-07 15:46 | Emergency (ER) | payer MEDICARE | END 2023-07-07 16:30 | disposition home or self-care (01) | LOC: MW.ED 15:46 | DX: F10.10 Alcohol abuse, uncomplicated (principal); I10 Essential (primary) hypertension; Z86.16 Personal history of COVID-19; Z79.82 Long term (current) use of aspirin; Z79.899 Other long term (current) drug therapy; Y90.9 Presence of alcohol in blood, level not specified | CPT/HCPCS: 99283; 99284 ==

== ENCOUNTER 2023-11-13 19:45 | Emergency (ER) | payer MEDICARE, MEDICAID ==
[2023-11-13 20:11] LABS: BASOPHILS ABSOLUTE AUTO 0.02 K/uL (0.00-0.20); BASOPHILS PERCENT AUTO 0.2 % (0.0-1.0); HEMATOCRIT 31.7 % (42.0-52.0); HEMOGLOBIN 10.3 g/dL (14.0-18.0); IMMATURE GRAN ABSOLUTE AUTO 0.08 K/uL (0.00-0.05); IMMATURE GRAN PERCENT AUTO 0.8 % (0.0-0.4); LYMPHOCYTES ABSOLUTE AUTO 0.87 K/uL (1.00-4.80); MEAN CORPUSCULAR HEMOGLOBIN 34.7 pg (28.0-32.0); MEAN CORPUSCULAR HGB CONC 32.5 g/dL (32.0-36.0); MEAN PLATELET VOLUME 10.6 fL (9.4-12.4); MONOCYTES PERCENT AUTO 5.2 % (0.0-8.0); NEUTROPHILS ABSOLUTE AUTO 8.15 K/uL (1.80-7.70); NEUTROPHILS PERCENT AUTO 84.8 % (41.0-71.0); NRBC ABSOLUTE 0.09 K/uL (0.00-0.02); NRBC PERCENT 0.9 /100WBC (0.0-0.2); RED BLOOD CELL COUNT 2.97 M/uL (4.52-5.90); WHITE BLOOD CELL COUNT,WBC 9.62 K/uL (3.9-11.3)
[2023-11-13] MEDS: 50% Dextrose in Water 50 ML Syringe IVPUSH STA ×2 (20:14)
[2023-11-13] MEDS: Sodium Chloride 0.9% 1,000 ML IV STA (20:14)
[2023-11-13] MEDS: Pantoprazole 80 MG in Sodium Chloride 0.9% 10 ML IVPUSH ONE (20:16)
[2023-11-13] MEDS: Ondansetron 4 MG Tab.DIS PO ONE (20:16)
[2023-11-13] MEDS: Ondansetron 4 MG/2 ML SDV IVPUSH ONE (20:19)
[2023-11-13 20:25] LABS: INR 1.16 (0.86-1.11); PTT,PARTIAL THROMBOPLSTIN TIME 26.8 SEC (23.9-30.7)
[2023-11-13] MEDS: cefTRIAXone 1 GM in Sodium Chloride 0.9% 50 ML IV ONE (20:31)
[2023-11-13 20:32] LABS: MAGNESIUM 1.4 mg/dL (1.8-2.4)
[2023-11-13] MEDS: Thiamine 200 MG in Sodium Chloride 0.9% 100 ML IV ONE (20:34)
[2023-11-13] MEDS: Thiamine 200 MG/2 ML MDV IVPUSH ONE (20:34)
[2023-11-13 20:35] LABS: ALBUMIN 3.5 g/dL (3.4-5.0); BILIRUBIN TOTAL 0.9 mg/dL (0.2-1.0); CALCIUM 8.3 mg/dL (8.5-10.1); CARBON DIOXIDE,CO2 10.6 mmol/L (21.0-32.0); CREATININE 1.9 mg/dL (0.8-1.3); EST CRCL DRUG DOSING (CG) 32.7 mL/min; POTASSIUM,K 5.1 mmol/L (3.5-5.1)
[2023-11-13 21:07] LABS: BASE EXCESS VENOUS -22.3 (-2.0-3.0); PH,VENOUS 6.95 (7.31-7.41)
[2023-11-13 21:11] LABS: MEAN CORPUSCULAR VOLUME 106.7 fL (83.0-99.0); PLATELET COUNT,PLT 73 K/uL (150-400)
[2023-11-13] MEDS: PHENobarbital Sodium 130 MG/ML SDV IVPUSH ONE (21:24)
[2023-11-13] MEDS: Lactated Ringers 1,000 ML IV SCH (21:52)
[2023-11-13 22:13] LABS: ACETAMINOPHEN <2.0 ug/mL; SALICYLATE 1.9 mg/dL (0.0-20.0)
[2023-11-13 23:03] LABS: BASE EXCESS VENOUS -24.5 (-2.0-3.0); PH,VENOUS 7.01 (7.31-7.41)
[2023-11-13 23:22] LABS: CALCIUM 7.6 mg/dL (8.5-10.1); CARBON DIOXIDE,CO2 6.1 mmol/L (21.0-32.0); CREATININE 1.7 mg/dL (0.8-1.3); EST CRCL DRUG DOSING (CG) 36.54 mL/min; POTASSIUM,K 5.4 mmol/L (3.5-5.1)
[2023-11-13 23:58] LABS: BASE EXCESS ARTERIAL -23.4 (-2.0-3.0); BICARBONATE,ARTERIAL 6 mEq/L (22-26); PCO2 ARTERIAL 22 mmHG (35-45); PO2 ARTERIAL 91 mmHG (80-105)
[2023-11-14 00:18] LABS: BILIRUBIN,URINE NEGATIVE (NEGATIVE); COLOR,URINE YELLOW; GLUCOSE,URINE 100 mg/dL (NEGATIVE); KETONES,URINE 15 mg/dL (NEGATIVE); LEUKOCYTE ESTERASE,URINE NEGATIVE (NEGATIVE); NITRITE,URINE NEGATIVE (NEGATIVE); OCCULT BLOOD,URINE SMALL (NEGATIVE); PROTEIN,URINE NEGATIVE (NEGATIVE); UROBILINOGEN,URINE 0.2 EU/dL (<2.0)
[2023-11-14 00:19] LABS: APPEARANCE,URINE HAZY
[2023-11-14 00:22] LABS: BACTERIA,URINE FEW (NEGATIVE); EPITHELIAL CELLS,URINE NOT SEEN (NONE-FEW); WBC,URINE 0-1 (0-5/HPF)
[2023-11-14 00:23] LABS: HYALINE CASTS,URINE 0-2 (0-2/LPF); MUCUS,URINE LIGHT (NONE-MOD)
[2023-11-14] MEDS: Sodium Bicarbonate 150 MEQ in Dextrose 5% in Water 1,000 ML IV ONE (00:37)
== END 2023-11-14 01:00 ==
LOC: MW.ED 19:45
DX: K92.0 Hematemesis (principal); K70.10 Alcoholic hepatitis without ascites; E87.20 Acidosis, unspecified; I10 Essential (primary) hypertension; Z79.82 Long term (current) use of aspirin; Z79.899 Other long term (current) drug therapy
CPT/HCPCS: 36415; 36600; 71045; 80048; 80053; 80143; 80179; 80307; 81001; 82140; 82550; 82803; 82947; 83605; 83690; 83735; 84484; 85025; 85610; 85730; 86850; 86900; 86901; 87040; 93005; 96361; 96365; 96367; 96375; 99285; C9113; J0696; J2405; J2560; J3411; J3490; J7030; J7060; J7120

== ENCOUNTER 2023-12-09 23:15 | Emergency (ER) | payer MEDICARE, MEDICAID ==
[2023-12-09 23:55] LABS: BASOPHILS ABSOLUTE AUTO 0.03 K/uL (0.00-0.20); BASOPHILS PERCENT AUTO 0.9 % (0.0-1.0); EOSINOPHILS ABSOLUTE AUTO 0.03 K/uL (0.00-0.45); EOSINOPHILS PERCENT AUTO 0.9 % (0.0-6.0); HEMOGLOBIN 11.4 g/dL (14.0-18.0); IMMATURE GRAN ABSOLUTE AUTO 0.02 K/uL (0.00-0.05); IMMATURE GRAN PERCENT AUTO 0.6 % (0.0-0.4); LYMPHOCYTES ABSOLUTE AUTO 1.73 K/uL (1.00-4.80); LYMPHOCYTES PERCENT AUTO 51.5 % (24.0-44.0); MEAN CORPUSCULAR HEMOGLOBIN 33.4 pg (28.0-32.0); MEAN CORPUSCULAR HGB CONC 34.5 g/dL (32.0-36.0); MEAN CORPUSCULAR VOLUME 96.8 fL (83.0-99.0); MEAN PLATELET VOLUME 11.7 fL (9.4-12.4); MONOCYTES ABSOLUTE AUTO 0.43 K/uL (0.00-0.80); MONOCYTES PERCENT AUTO 12.8 % (0.0-8.0); NEUTROPHILS ABSOLUTE AUTO 1.12 K/uL (1.80-7.70); NEUTROPHILS PERCENT AUTO 33.3 % (41.0-71.0); NRBC ABSOLUTE 0.02 K/uL (0.00-0.02); NRBC PERCENT 0.6 /100WBC (0.0-0.2); PLATELET COUNT,PLT 48 K/uL (150-400); RED BLOOD CELL COUNT 3.41 M/uL (4.52-5.90); WHITE BLOOD CELL COUNT,WBC 3.36 K/uL (3.9-11.3)
[2023-12-09] MEDS: Famotidine 20 MG/2 ML SDV IVPUSH ONE (23:55)
[2023-12-09] MEDS: Alum Hydro/Mag Hydro/Simeth XS 15 ML, Lidocaine 2% 5 ML PO ONE (23:55)
[2023-12-10 00:41] LABS: A/G RATIO 0.8 (0.9-1.6); ALBUMIN 3.1 g/dL (3.4-5.0); BILIRUBIN TOTAL 0.6 mg/dL (0.2-1.0); CALCIUM 7.9 mg/dL (8.5-10.1); CARBON DIOXIDE,CO2 20.3 mmol/L (21.0-32.0); CREATININE 1.2 mg/dL (0.8-1.3); EST CRCL DRUG DOSING (CG) 55.91 mL/min; POTASSIUM,K 2.6 mmol/L (3.5-5.1)
[2023-12-10] MEDS: Potassium Chloride 20 MEQ Tab.ER PO ONE ×2 (00:49→01:42)
[2023-12-10 02:17] LABS: CALCIUM 7.9 mg/dL (8.5-10.1); CARBON DIOXIDE,CO2 24.3 mmol/L (21.0-32.0); EST CRCL DRUG DOSING (CG) 67.09 mL/min; POTASSIUM,K 2.9 mmol/L (3.5-5.1)
== END 2023-12-10 02:40 | disposition home or self-care (01) ==
LOC: MW.ED 23:15
DX: R10.12 Left upper quadrant pain (principal); E87.6 Hypokalemia; I10 Essential (primary) hypertension; Z79.82 Long term (current) use of aspirin; Z79.899 Other long term (current) drug therapy; Z75.8 Other problems related to medical facilities and other health care
CPT/HCPCS: 36415; 80048; 80053; 83690; 85025; 96374; 99284; A9270; J3490

== ENCOUNTER 2023-12-10 17:06 | Emergency (ER) | payer MEDICARE, MEDICAID ==
[2023-12-10] MEDS: Sodium Chloride 0.9% 1,000 ML IV ONE (17:45)
== END 2023-12-10 19:53 | disposition home or self-care (01) ==
LOC: MW.ED 17:06
DX: R63.0 Anorexia (principal); I10 Essential (primary) hypertension; Z79.899 Other long term (current) drug therapy; Z79.82 Long term (current) use of aspirin
CPT/HCPCS: 96360; 96361; 99285; J7030; 99282

== ENCOUNTER 2023-12-12 00:05 | Emergency (ER) | payer MEDICARE, MEDICAID ==
[2023-12-12] MEDS ORDERED: Famotidine 40 MG/5 ML Bottle PO STA (00:07)
[2023-12-12] MEDS: Alum Hydro/Mag Hydro/Simeth XS 15 ML, Lidocaine 2% 5 ML PO ONE (00:27)
[2023-12-12] MEDS: Famotidine 20 MG Tab PO SCH (00:28)
[2023-12-12] MEDS: Potassium Chloride 20 MEQ Tab.ER PO ONE ×2 (00:28→01:18)
[2023-12-12 00:32] LABS: BASOPHILS ABSOLUTE AUTO 0.02 K/uL (0.00-0.20); BASOPHILS PERCENT AUTO 0.6 % (0.0-1.0); EOSINOPHILS ABSOLUTE AUTO 0.03 K/uL (0.00-0.45); HEMOGLOBIN 11.2 g/dL (14.0-18.0); IMMATURE GRAN ABSOLUTE AUTO 0.02 K/uL (0.00-0.05); IMMATURE GRAN PERCENT AUTO 0.6 % (0.0-0.4); LYMPHOCYTES PERCENT AUTO 51.9 % (24.0-44.0); MEAN CORPUSCULAR HEMOGLOBIN 33.5 pg (28.0-32.0); MEAN CORPUSCULAR HGB CONC 36.1 g/dL (32.0-36.0); MEAN CORPUSCULAR VOLUME 92.8 fL (83.0-99.0); MEAN PLATELET VOLUME 13.1 fL (9.4-12.4); MONOCYTES ABSOLUTE AUTO 0.25 K/uL (0.00-0.80); MONOCYTES PERCENT AUTO 8.1 % (0.0-8.0); NEUTROPHILS ABSOLUTE AUTO 1.16 K/uL (1.80-7.70); NEUTROPHILS PERCENT AUTO 37.8 % (41.0-71.0); RED BLOOD CELL COUNT 3.34 M/uL (4.52-5.90); WHITE BLOOD CELL COUNT,WBC 3.08 K/uL (3.9-11.3)
[2023-12-12 00:50] LABS: PLATELET COUNT,PLT 53 K/uL (150-400)
[2023-12-12 00:58] LABS: A/G RATIO 0.8 (0.9-1.6); CARBON DIOXIDE,CO2 21.7 mmol/L (21.0-32.0); CREATININE 0.9 mg/dL (0.8-1.3); EST CRCL DRUG DOSING (CG) 65.74 mL/min; POTASSIUM,K 2.8 mmol/L (3.5-5.1); PROTEIN TOTAL,TP 6.6 g/dL (6.4-8.2)
== END 2023-12-12 01:35 | disposition home or self-care (01) ==
LOC: MW.ED 00:05
DX: R10.13 Epigastric pain (principal); E87.6 Hypokalemia; I10 Essential (primary) hypertension; Z75.8 Other problems related to medical facilities and other health care
CPT/HCPCS: 36415; 80053; 83690; 85025; 99284; A9270; 99283